=== PATIENT | male | born 1945 | race Caucasian/White ===

== ENCOUNTER 2017-04-04 06:02 | Day surgery (SDC) | payer OTHER ==
[~2017-04-04] VITALS: Ht 175.3 cm; Wt 110.6 kg
[~2017-04-04 06:02] MED LIST: ASPI81TA82 PO; ATEN-102 PO; ATOR80TA41 PO; CPAP; D31000CA PO; LOSA50TA PO; NORV10TA PO; OMEG100010 PO; PROT40TA PO; ZETI10TA5 PO; [UNRECOGNIZED DRUG - CODE] XX
[2017-04-04] MEDS ORDERED: NS 1000P @30 MLS/HR (KVO) IV SCH (06:45)
[2017-04-04 07:18] VITALS: BP 141/72; PULSE 74; RESP 18; TEMP 98.1; O2SAT 99
[2017-04-04] MEDS ORDERED: SODI325T PO (07:27)
[2017-04-04] MEDS ORDERED: AMLO10TA2 PO (07:27)
[2017-04-04] MEDS ORDERED: METO1TAB9 PO (07:27)
[2017-04-04] MEDS ORDERED: OMEGCAP PO (07:27)
[2017-04-04] MEDS ORDERED: LOSA50TA PO (07:27)
[2017-04-04] MEDS ORDERED: TYLE325T PO (07:27)
[2017-04-04] MEDS ORDERED: VITA100064 PO (07:27)
[2017-04-04] MEDS ORDERED: ATOR80TA45 PO (07:27)
[2017-04-04 07:31] LABS: AUTOMATED NEUTROPHIL # 6.7 TH/MM3 (1.8-7.7); BASOPHIL # 0.1 TH/MM3 (0-0.2); BASOPHIL % 0.7 % (0.0-2.0); EOSINOPHIL # 0.2 TH/MM3 (0-0.4); EOSINOPHIL % 1.8 % (0.0-4.0); HEMATOCRIT 29.4 % (39.0-51.0); HEMOGLOBIN 9.6 GM/DL (13.0-17.0); LYMPH % 12.9 % (9.0-44.0); LYMPHOCYTE # 1.2 TH/MM3 (1.0-4.8); MEAN CELL VOLUME 95.2 FL (80.0-100.0); MEAN CORPUSCULAR HGB CONC 32.6 % (32.0-36.0); MEAN PLATELET VOLUME 8.8 FL (7.0-11.0); MONO % 9.2 % (0.0-8.0); MONOCYTE # 0.8 TH/MM3 (0-0.9); NEUT % 75.4 % (16.0-70.0); PLATELET COUNT 255 TH/MM3 (150-450); RED BLOOD COUNT 3.08 MIL/MM3 (4.50-5.90); RED CELL DISTRIBUTION WIDTH 14.6 % (11.6-17.2); WHITE BLOOD COUNT 8.9 TH/MM3 (4.0-11.0)
[2017-04-04 07:55] LABS: ALBUMIN 3.4 GM/DL (3.4-5.0); BICARBONATE 21.2 MEQ/L (21.0-32.0); CALCIUM 9.1 MG/DL (8.5-10.1); CREATININE 3.7 MG/DL (0.60-1.30)
--- NOTE | 2017-04-04 09:13 | PD.FRAIL ---
Date: Apr 04, 2017 Height: 175.26 cm Weight: 110.6 kg BMI: 36.0 Assessment Performed: Outpatient Albumin 04/04/17 07:00: Blood Urea Nitrogen 50, Creatinine 3.70, Random Glucose 108, Albumin 3.4, Calcium Level 9.1, Sodium Level 142, Potassium Level 4.3, Chloride Level 113, Carbon Dioxide Level 21.2 Pass/Fail: Fail Croft Activities Daily Living Croft ADL Score: Bathing(bathes self/help in single area): [place] (1), Dressing(gets/puts clothes on self): [place] (1), Toileting(goes without help): [place] ( 1), Transferring([facility]assisted or [facility] aides): [place] (1), Continence( complete self-control): [place] (1), Feeding(self, prep by another allowed) : [place] (1), Total: 6 Stock Counter Strength Grasp 1: 20 Grasp 2: 20 Grasp 3: 18 Average: 19.3 Pass/Fail: Fail 15-Foot Walk 15-Foot Walk (seconds): 12.4 Pass/Fail: Fail (walks with cane. pt unable to walk distances because of spinal stenosis. not SOB on 15ft walk. ) Total Frailty Total Frailty (out of 4): 3 Frailty Index Score Reference Stock Counter Strength: BMI: <=24 Cutoff for rn pediatric strength(Kg): <=29 BMI: 24.1-28 Cutoff for rn pediatric strength(Kg): <=30 BMI: >28 Cutoff for rn pediatric strength(Kg): <=32 15-Foot Walk: Height: <=173 cm 15-Foot Walk Cutoff Time: >=7 seconds Height: >173 cm 15-Foot Walk Cutoff Time: >=6 seconds Chelsi Jasso RN Apr 04, 2017 09:13
--- NOTE | 2017-04-04 11:40 | PD.CONS ---
HPI Service Nephrology Consult Requested By Dr. Oliveira Reason for Consult Chronic kidney disease stage IV Primary Care Physician Non-Staff History of Present Illness Patient is a 71-year-old the white male with history of chronic kidney disease stage IV GFR of 16, hypertension, coronary artery disease, chest pains who has been admitted to for undergoing heart catheterization he does have a heart murmur as well, I have been asked to evaluate him he is getting IV fluids have prior to his heart catheterization and I have discussed that we should wait to see how the kidney functions are after heart catheterization to make further decision about CT scan with contrast, it is likely that he may need hemodialysis as he has advanced kidney disease and GFR is already trending downward. Review of Systems Constitutional: COMPLAINS OF: Fatigue Respiratory: COMPLAINS OF: Shortness of breath Cardiovascular: COMPLAINS OF: Chest pain, Dyspnea on Exertion, Orthopnea Past Family Social History Allergies: Coded Allergies: No Known Allergies (Unverified , 05/13/13) Past Medical History Coronary artery disease Chronic kidney disease stage IV Obesity Hyperlipidemia Hypertension Past Surgical History Appendectomy Covered dental surgery Reported Medications Reported Meds & Active Scripts Active Reported Vitamin D3 (Cholecalciferol) 1,000 Unit Tab 1,000 Units PO DAILY Tylenol (Acetaminophen) 325 Mg Tab 1,000 Mg PO ONCE Sodium Bicarbonate 325 Mg Tab Unknown Dose PO BIDPC Wallace-3 Fish Oil/Vitamin (Fish Oil-Cholecalciferol) 1,000-1,000 Mg Cap 1 Cap PO DAILY Metoprolol Succinate ER 24 HR (Metoprolol Succinate) 50 Mg Tab 50 Mg PO DAILY Losartan (Losartan Potassium) 50 Mg Tab 50 Mg PO DAILY Atorvastatin (Atorvastatin Calcium) 80 Mg Tab 80 Mg PO HS Amlodipine (Amlodipine Besylate) 10 Mg Tab 10 Mg PO DAILY Active Ordered Medications Current Medications Medications (Trade) Dose Ordered Sig/Marylou Route Start Time Stop Time Status Last Admin Sodium Chloride 1,000 ml @ 30 mls/hr Q24H IV 04/04/17 06:45 Family History Noncontributory Social History History of smoking in the past Physical Exam Vital Signs Vital Signs Date Time Temp Pulse Resp B/P (MAP) Pulse Ox O2 Delivery O2 Flow Rate FiO2 04/04/17 07:18 98.1 74 18 141/72 (95) 99 Physical Exam GENERAL: Well-nourished, well-developed patient. SKIN: Warm and dry. HEAD: Normocephalic. EYES: No scleral icterus. No injection or drainage. NECK: Supple, trachea midline. No JVD or lymphadenopathy. CARDIOVASCULAR: Regular rate and rhythm 3/6 systolic murmur, gallops, or rubs. RESPIRATORY: Breath sounds equal bilaterally. No accessory muscle use. GASTROINTESTINAL: Abdomen soft, non-tender, nondistended. EXTREMITIES: No cyanosis, or edema. NEUROLOGICAL: Awake, alert, and oriented x 3. Non-focal. Laboratory Laboratory Tests Test 04/04/17 07:00 White Blood Count 8.9 Red Blood Count 3.08 Hemoglobin 9.6 Hematocrit 29.4 Mean Corpuscular Volume 95.2 Mean Corpuscular Hemoglobin 31.0 Mean Corpuscular Hemoglobin Concent 32.6 Red Cell Distribution Width 14.6 Platelet Count 255 Mean Platelet Volume 8.8 Neutrophils (%) (Auto) 75.4 Lymphocytes (%) (Auto) 12.9 Monocytes (%) (Auto) 9.2 Eosinophils (%) (Auto) 1.8 Basophils (%) (Auto) 0.7 Neutrophils # (Auto) 6.7 Lymphocytes # (Auto) 1.2 Monocytes # (Auto) 0.8 Eosinophils # (Auto) 0.2 Basophils # (Auto) 0.1 CBC Comment DIFF FINAL Differential Comment Prothrombin Time 10.0 Prothromb Time International Ratio 1.0 Activated Partial Thromboplast Time 21.9 Blood Urea Nitrogen 50 Creatinine 3.70 Random Glucose 108 Albumin 3.4 Calcium Level 9.1 Sodium Level 142 Potassium Level 4.3 Chloride Level 113 Carbon Dioxide Level 21.2 Anion Gap 8 Estimat Glomerular Filtration Rate 16 Result Diagram: 04/04/17 0700 04/04/17 0700 Assessment and Plan Problem List: (1) CKD (chronic kidney disease) stage 4, GFR 15-29 ml/min ICD Codes: N18.4 - Chronic kidney disease, stage 4 (severe) Plan: Patient is a high risk for heart catheterization with dye, I discuss that there is likelihood of dialysis if kidney functions continued to deteriorate after heart catheterization, he is getting IV fluid and will wait to see how much dye load he gets CT scan can be stage and we have to wait to see how he tolerates heart catheterization We discussed that preemptive dialysis has not shown to improve his chances in the literature The best approach will be to wait and follow kidney functions there is a possibility that we may have to do dialysis since his GFR is low to begin with Monitor BMP (2) Hypertension ICD Codes: I10 - Essential (primary) hypertension Plan: Continue to monitor (3) Coronary artery disease ICD Codes: I25.10 - Atherosclerotic heart disease of [place] coronary artery without angina pectoris Status: Chronic Plan: Wait for heart catheterization Problem Qualifiers (1) Hypertension: Qualified Codes: I10 - Essential (primary) hypertension Gaurav Shah MD Apr 04, 2017 11:40
--- NOTE | 2017-04-04 12:04 | RADRPT ---
EXAM DATE/TIME: 04/04/2017 11:01 [facility] COMPARISON: No previous studies available for comparison. INDICATIONS : Pre TAVR MEDICAL HISTORY : Hypertension. Hypercholesterolemia. CAD SURGICAL HISTORY : None. ENCOUNTER: Initial ACUITY: 1 day PAIN SCORE: 0/10 LOCATION: chest FINDINGS: A single view of the chest demonstrates the lungs to be symmetrically aerated without evidence of mas s, infiltrate or effusion. The cardiomediastinal contours are unremarkable. Osseous structures are intact. CONCLUSION: No acute disease. Chuck Rae MD on April 04, 2017 at 12:02 Board Certified Radiologist. This report was verified electronically.
[2017-04-04 14:21] LABS: BILIRUBIN, URINE NEG (NEG); BLOOD, URINE NEG (NEG); GLUCOSE,URINE TRACE mg/dL (NEG); HYALINE CAST, URINE 1 /lpf (RARE); KETONE, URINE NEG (NEG); NITRITE,URINE NEG (NEG); PH, URINE 6.5 (5.0-8.5); URINE COLOR LIGHT-YELLOW (YELLW/STRAW); URINE LEUKOCYTE ESTERASE NEG (NEG)
[2017-04-04 14:51] LABS: ALBUMIN 3.5 GM/DL (3.4-5.0); ALT (GPT) 25 U/L (12-78); AST (GOT) 18 U/L (15-37); DIRECT BILIRUBIN ADULT 0.1 MG/DL (0.0-0.2)
[2017-04-04 14:52] LABS: ALKALINE PHOSPHATASE 74 U/L (45-117); INDIRECT BILIRUBIN 0.1 MG/DL (0.0-0.8); TOTAL BILIRUBIN ADULT 0.2 MG/DL (0.2-1.0); TOTAL PROTEIN 6.4 GM/DL (6.4-8.2)
--- NOTE | 2017-04-04 14:57 | MB ---
cc: SAUL HAN MD DATE OF CONSULTATION 04/04/2017 HISTORY OF PRESENT ILLNESS A 71-year-old patient of Dr. Faria, Dr. Tidwell, Dr. Scott, who was admitted for elective heart catheterization today; however, that was cancelled secondary to a creatinine of 3.7 and a GFR of 16. He apparently had been worked up to have carpal tunnel surgery on the left and needed cardiac clearance. He has seen Dr. Tidwell in the past and had a work-up to include echocardiogram which showed an ejection fraction of 70%, grade 1 diastolic dysfunction, aortic valve area 0.7 cm squared, mild to moderate AI, peak gradient 93 mmHg, mean gradient 51, consistent with severe aortic stenosis. There was also some mild mitral regurgitation, possible mild mitral stenosis. The tricuspid valve was normal. There was no stress test done. There was concern to give him any dye. He had an admission back in 2013 where he had extreme shortness of breath, dyspnea on exertion and was admitted with a hemoglobin of 4. He underwent work-up with an EGD which showed some gastritis. A colonoscopy showed some hemorrhoids. He was transfused with 6 units of blood during that time unfortunately he apparently had a [id number] VT. Troponin was 5.19. He was treated medically by Dr. Tidwell. There was concern secondary to the severe anemia. He was restarted on aspirin and beta jacy and a statin. He presented today for evaluation with cardiac cath, however, that was stopped. He does have multiple risk factors for coronary disease including age, obesity, BMI of 39, family history, hypertension, hyperlipidemia and tobacco abuse. We were consulted to preliminary evaluate for possible TAVR candidate; however, we are unable to do STS scoring since we do not have a cardiac cath and we await further work-up pending including the cath. PAST MEDICAL HISTORY 1. Abnormal EKG. 2. Prior non-STEMI secondary to severe anemia in 2013. 3. Aortic insufficiency. 4. Aortic stenosis with worsening valve area. 5. Carpal tunnel of the left wrist. 6. Chronic kidney disease, stage IV. 7. COPD. 8. Hyperlipidemia. 9. Hypertension. 10.Mild mitral regurgitation. 11.Morbid obesity. 12.Obstructive sleep apnea. 13.Spinal stenosis, nonsurgical. PAST SURGICAL HISTORY 1. Appendectomy. 2. Right carpal tunnel surgery. ALLERGIES No known allergies. MEDICATIONS Home meds include: 1. Amlodipine. 2. Atorvastatin. 3. Losartan. 4. Metoprolol. 5. Tylenol. FAMILY HISTORY Father at 59 from an VT. Mother with failure to thrive at 81. SOCIAL HISTORY The patient is , has two biological children. Retired from the [employer]. Has been smoking one pack for 30 years. Drinks two glasses of wine or whiskey daily. REVIEW OF SYSTEMS GENERAL: No night sweats, fever, heat or cold intolerance. SKIN: No psoriasis, itching or hives. HEENT: No blurred vision or hearing loss. He does have dentures, uppers and lowers. RESPIRATORY: Positive for chronic shortness of breath with minimal exertion. CARDIOVASCULAR: He has had recent chest pressure for the last couple of months relieved with rest. No history of syncope. GASTROINTESTINAL: No diarrhea or vomiting. GENITOURINARY: No burning, frequency, urgency. PUBLIC RELATIONS INTERN: No history of TIA, CVA, seizure disorder. ENDOCRINE: No history of diabetes and/or hypothyroidism. PHYSICAL EXAMINATION VITAL SIGNS: Blood pressure 140/60, heart rate 70, afebrile. O2 sat 97% on room air. GENERAL: Patient is awake, alert, in no acute distress. HEENT: Head is normocephalic, atraumatic. Pupils equal and reactive. Oral mucosa pink and moist. NECK: Supple. No JVD. HEART: Heart sounds S1, S2, regular rate and rhythm. There is a grade 3/6 systolic murmur best noted at the left sternal border. LUNGS: Diminished in the bases, otherwise clear to auscultation. ABDOMEN: Obese, soft, nontender. No masses or organomegaly. EXTREMITIES: No cyanosis, clubbing or edema. SKIN: No psoriasis or lesions noted. LABORATORY Hematology: Hemoglobin 9.6, hematocrit 29, white cell count 8.9, platelet count 255. Chemistry: Sodium 142, potassium 4.3, BUN 50, creatinine 3.70. Coagulation: INR 1.0. IMAGING Chest x-ray unremarkable. EKG EKG shows normal sinus rhythm, some ST depression inferior lateral leads, relatively unchanged. IMPRESSION AND PLAN This is a 71-year-old male we have been asked to evaluate for candidacy of possible transcatheter aortic valve replacement. The patient's frailty score is 3/4. We are unable to complete an STS due to the fact that he has not had his heart catheterization at this time. Await clearance with nephrology. Since the patient has stage IV kidney disease there is a possibility he may need hemodialysis following the heart catheterization. His FEV-1 is 1.91. He has multiple risk factors for coronary disease as discussed above in the HPI. He has severe aortic stenosis and will need to have that valve replaced or by transcatheter aortic valve replacement. He has multiple co-morbidities. He has poor mobility, but again we are unable to make a final decision until he undergoes his cardiac cath. Dictated by: KYARA Bui Saul CHAMBERS /1:33 PM /2:43 PM
--- NOTE | 2017-04-04 15:13 | RADRPT ---
EXAM DATE/TIME: 04/04/2017 14:21 [facility] COMPARISON: No previous studies available for comparison. INDICATIONS : Pre-Op cardiac surgery. MEDICAL HISTORY : Myocardial infarction. Chronic obstructive pulmonary disease. Hypercholesterolemia. Coronary artery d isease. Heart murmur. HTN. COPD. Sleep apnea. Dyspnea. Stage IV chronic kidney disease. Osteoarthriti s. Spinal stenosis. Skin cancer. Anemia. SURGICAL HISTORY : Tonsillectomy. Appendectomy. Warthin's tumor removed. right carpel tunnel release. blood tranfusion s. cardiac cath. ENCOUNTER: Initial ACUITY: 1 day PAIN SCORE: 0/10 LOCATION: Bilateral neck PEAK SYSTOLIC VELOCITIES (cm/sec): ICA/CCA RATIO: Right: 1.0 Left: 0.9 ICA: Right: 92 Left: 98 CCA: Right: 89 Left: 114 ECA: Right: 116 Left: 78 VERTEBRAL: Right: 42 antegrade Left: 40 antegrade Elevated flow velocities and ICA/CCA ratios have been found to correlate with increased degrees of vessel stenosis, calculated as percentage of diameter relative to a normal segment of distal ICA/CCA FINDINGS: RIGHT CAROTID: No significant stenosis is visualized. There is mild atherosclerotic plaquing of the bifurcation. Th e waveforms are within normal limits. LEFT CAROTID: No significant stenosis is visualized. There is mild atherosclerotic plaquing of the bifurcation. Th e waveforms are within normal limits. VERTEBRAL ARTERIES: Antegrade flow is seen in both vertebral arteries. MISCELLANEOUS: None. CONCLUSION: 1. Mild atherosclerotic plaquing of the bifurcations. This is predominantly calcified plaque. 2. No hemodynamically significant carotid artery stenosis identified. Haris Hope MD on April 04, 2017 at 15:10 Board Certified Radiologist. This report was verified electronically.
--- NOTE | 2017-04-04 15:45 | RADRPT ---
EXAM DATE/TIME: 04/04/2017 14:00 [facility] COMPARISON: No previous studies available for comparison. INDICATIONS : pre-op TAVR IV CONTRAST: none cc IV RADIATION DOSE: 9.97 CTDIvol (mGy) MEDICAL HISTORY : Chronic obstructive pulmonary disease. Hypertension. Renal failure, chronic.coronary artery disease SURGICAL HISTORY : Appendectomy. CABGTonsillectomy. ENCOUNTER: Initial ACUITY: 1 day PAIN SCALE: 0/10 LOCATION: chest TECHNIQUE: Volumetric scanning was performed using a multi-row detector CT scanner. The data was post processed with a variety of visualization algorithms including full volume maximum intensity projection, multi -planar sliding thin slab reformation, curved planar reformation, and surface rendering techniques. Using automated exposure control and adjustment of the mA and/or kV according to patient size, radiat ion dose was kept as low as reasonably achievable to obtain optimal diagnostic quality images. DIC OM format image data is available electronically for review and comparison. FINDINGS: CARDIAC: The coronary system is right dominant. There is calcification of the left anterior distending artery, posterior descending artery and proximal third of the right coronary. There is no pericardial effusi on AORTIC ROOT/VALVE: 3 cusps are evident with calcifications. The aortic root measures 3.7. Mid thoracic aorta measures 2.0 with no calcifications. THORACIC AORTA: Origin of the great vessels is normal. No evidence of aneurysm, mural thrombus, dissection, mural ca lcification, or stenosis. ABDOMINAL AORTA: No evidence of aneurysm, mural thrombus, dissection, mural calcification, or stenosis. CELIAC ARTERY: Celiac artery is widely patent. SMA: Superior mesenteric artery is widely patent. RIGHT RENAL ARTERY: Right renal artery is widely patent. LEFT RENAL ARTERY: Left renal artery is widely patent. RIGHT COMMON ILIAC: No evidence of aneurysm, mural thrombus, dissection, mural calcification, or stenosis. The common fe moral measures 12. LEFT COMMON ILIAC: No evidence of aneurysm, mural thrombus, dissection, mural calcification, or stenosis. The common fe moral measures 12. THORAX: Examination of the lung kinney demonstrates no evidence of pulmonary nodule. No pleural fluid is iden tified. ABDOMEN: The liver and spleen are free of focal defects. The gallbladder and pancreas demonstrate no abnormali ty. The adrenal glands are normal. The kidneys demonstrate no evidence of solid renal mass or hydrone phrosis. No free fluid or abdominal masses are identified. No para-aortic adenopathy is seen. There i s cortical thinning of the kidneys bilaterally PELVIS: There is diverticulosis without evidence of diverticulitis. CONCLUSION: 1. Measurements as above. 2. No evidence of acute abdominal or pelvic process. No masses are identified. Herrera Kwong MD on April 04, 2017 at 14:55 Board Certified Radiologist. This report was verified electronically.
--- NOTE | 2017-04-04 15:48 | RADRPT ---
EXAM DATE/TIME: 04/04/2017 14:34 [facility] COMPARISON: No previous studies available for comparison. INDICATIONS : Preop cardiac surgery. MEDICAL HISTORY : Myocardial infarction. Congestive heart failure. Hypercholesterolemia. Coronary artery disease. Heart murmur. HTN. COPD. Sleep apnea. Dyspnea. Stage IV chronic kidney disease. Osteoarthritis. Spinal jannette nosis. Skin cancer. Anemia. SURGICAL HISTORY : Tonsillectomy.Appendectomy. Terrell's tumor removal. right carpel tunnel surgery. blood transfusions. cardiac cath. ENCOUNTER: Initial ACUITY: 1 day PAIN SCORE: 0/10 LOCATION: Bilateral leg. TECHNIQUE: Venous ultrasound of the left and right leg was performed from the inguinal ligament to the proximal calf. Real-time, color Doppler and spectral tracing, compression and augmentation techniques were us ed. FINDINGS: RIGHT LEG: There is normal compressibility of the deep venous system from the inguinal region to the proximal ca lf. No echogenic clot is seen in the lumen of the common femoral, femoral, popliteal, and posterior tibial veins. There is a normal response of the venous system to proximal and distal augmentation an d respiration. LEFT LEG: Poor flow in the left posterior tibial vein and the vein is compressible. No other evidence for thro mbosis is identified. . CONCLUSION: Negative for deep venous thrombosis. Julio César Hope MD FACR on April 04, 2017 at 15:44 Board Certified Radiologist. This report was verified electronically.
--- NOTE | 2017-04-04 15:53 | RADRPT ---
EXAM DATE/TIME: 04/04/2017 14:39 [facility] COMPARISON: US LEG BILATERAL VENOUS DOPPLER, April 04, 2017, 14:34. INDICATIONS : Preop cardiac surgery. MEDICAL HISTORY : Congestive heart failure. Myocardial infarction. Hypercholesterolemia. Coronary artery disease. Heart murmur. HTN. COPD. Sleep apnea. Dyspnea. Stage IV chronic kidney disease. Osteoarthritis. Spinal jannette nosis. Skin cancer. Anemia. SURGICAL HISTORY : Tonsillectomy. Appendectomy. Christine's tumor removal. right carpel tunnel surgery. blood transfusion s. cardiac cath. ENCOUNTER: Initial ACUITY: 1 day PAIN SCORE: 0/10 LOCATION: Bilateral leg. GREATER SAPHENOUS VEIN THIGH: PROXIMAL: Right 7 mm Left 6 mm MID: Right 3 mm Left 4 mm DISTAL: Right 4 mm Left 3 mm CALF: PROXIMAL: Right 3 mm Left 2 mm MID: Right 2 mm Left 1 mm DISTAL: Right 3 mm Left 2 mm FINDINGS: The venous system of the lower extremities are patent by color Doppler imaging. Measurements of the leg veins (in mm) are listed above. CONCLUSION: 1. No DVT identified. 2. Vein mapping as above. Haris Hope MD on April 04, 2017 at 15:47 Board Certified Radiologist. This report was verified electronically.
[2017-04-04 17:57] LABS: HEMOGLOBIN A1C 5.2 % (4.3-6.0)
--- NOTE | 2017-04-04 21:36 | EKG ---
Date Performed: 04/04/2017 Time Performed: 07:30:10 PTAGE: 71 years EKG: Sinus rhythm . Inferior/lateral ST-T changes are nonspecific Borderline ECG PREVIOUS TRACING : 05/14/2013 17.19 Compared to prior tracing no significant change DOCTOR: Siva Salinas Interpretating Date/Time 04/04/2017 21:35:07
--- NOTE | 2017-04-10 12:12 | RSPPFT ---
DATE OF PROCEDURE: 04/04/17 COMMENTS: Spirometry with FVC of 2.6 predicted 3.8, FEV1 of 1.9 predicted 3.0, FEV1/FVC ratio at 73% predicted 78%. Patient has decreased flow values at the level of the "small airways" with FEF 25-75 at 1.3 predicted 2.9. IMPRESSION: On the basis of the above, patient has a mild obstructive lung defect.
== END 2017-04-04 15:03 | disposition home or self-care (01) ==
LOC: HDOC 06:02 → HDIC 06:03 → HDOC 15:03
PROVIDERS: ATTEND Radiology Vascular & Interventional Radiology
DX: I35.0 Nonrheumatic aortic (valve) stenosis (principal); I34.0 Nonrheumatic mitral (valve) insufficiency; I13.0 Hypertensive heart and chronic kidney disease with heart failure and stage 1 through stage 4 chronic kidney disease, or unspecified chronic kidney disease; N18.4 Chronic kidney disease, stage 4 (severe); D63.1 Anemia in chronic kidney disease; I50.9 Heart failure, unspecified; G56.02 Carpal tunnel syndrome, left upper limb; E78.00 Pure hypercholesterolemia, unspecified; I25.10 Atherosclerotic heart disease of native coronary artery without angina pectoris; J44.9 Chronic obstructive pulmonary disease, unspecified; I25.2 Old myocardial infarction; G47.33 Obstructive sleep apnea (adult) (pediatric); R01.1 Cardiac murmur, unspecified; E78.5 Hyperlipidemia, unspecified; E66.01 Morbid (severe) obesity due to excess calories; Z68.36 Body mass index [BMI] 36.0-36.9, adult; M19.90 Unspecified osteoarthritis, unspecified site; R07.9 Chest pain, unspecified; R06.02 Shortness of breath; R53.83 Other fatigue; R07.89 Other chest pain; R06.01 Orthopnea; Z87.891 Personal history of nicotine dependence
CPT/HCPCS: 71045; 74174; 80048; 80076; 81001; 82040; 83036; 85025; 85610; 85730; 86850; 86900; 86901; 87641; 93005; 93880; 93970; 93998

== ENCOUNTER 2017-09-03 21:44 | Inpatient (IN) | payer OTHER, MEDICARE ==
[~2017-09-03] VITALS: Ht 172.7 cm; Wt 99.0 kg
[~2017-09-03 21:44] MED LIST changes: +AMLO10TA2 PO; -ASPI81TA82 PO; -ATEN-102 PO; -ATOR80TA41 PO; +ATOR80TA45 PO; -CPAP; -D31000CA PO; +METO1TAB9 PO; -NORV10TA PO; -OMEG100010 PO; +OMEGCAP PO; -PROT40TA PO; +SODI325T PO; +TYLE325T PO; +VITA100064 PO; -ZETI10TA5 PO; -[UNRECOGNIZED DRUG - CODE] XX
[2017-09-03 21:48] VITALS: BP 118/62; PULSE 100; RESP 22; TEMP 98.1; O2SAT 96
[2017-09-03] MEDS ORDERED: PROC20005 SQ (21:59)
[2017-09-03] MEDS ORDERED: SODIUM CHLORID 0.9% 500 ML INJ 500 ML IV ONE (22:00)
[2017-09-03] MEDS ORDERED: SODIUM CHLOR 0.9% 1000 ML INJ 1,000 ML IV SCH (22:00)
[2017-09-03] MEDS ORDERED: PANTOPRAZOLE SODIUM 40 MG VIAL IV PUSH ONE (22:00)
[2017-09-03] MEDS ORDERED: ASPIRIN 81 MG CHEW TAB PO ONE (22:00)
[2017-09-03] MEDS ORDERED: SODIUM CHLORIDE 0.9% FLUSH 10 ML FLUSH IVF PRN ×2 (22:00→22:30)
--- NOTE | 2017-09-03 22:18 | PD ---
HPI Chief Complaint: Chest Pain Time Seen by Provider: 21:55 Travel History International Travel<30 days: No Contact w/Intl Traveler<30days: No Traveled to known affect area: No History of Present Illness HPI 72 year male presents to the emergency department from home by EMS transport for evaluation of retrosternal chest pain. No reported associated shortness of breath sweats nausea vomiting referred neck jaw back shoulder arm pain. Patient denies any abdominal pain. Patient has history of known coronary vessel disease myocardial infarction, angina pectoris as well as stage IV chronic kidney disease. Patient also has history of aortic insufficiency aortic stenosis COPD dyslipidemia hypertensive heart disease mitral regurgitation morbid obesity obstructive sleep apnea. Patient states he frequently has episodes of similar type of chest pain that is minutes indurations however this is been present since 8:30 PM and unremitting. Patient was noted to be hypotensive upon EMS arrival with a systolic blood pressure of 90 mmHg. Patient was given aspirin and a 500 cc bolus of normal saline. Patient also suffers from chronic anemia due to his CKD. Patient was seen as recently as March 2017 for a cardiac catheterization which was canceled secondary to his creatinine being 2.7 at the time with a GFR of 16 it was determined that the contrast would cause him to have further renal failure deterioration and require hemodialysis. Patient was also seen by cardiothoracic surgery and indicated that to evaluate him for a transcatheter aortic valve replacement he would need to undergo cardiac catheterization however as it was an elective catheterization of the time the study was canceled. Patient has had low hemoglobin in the past requiring blood transfusion. Patient does not take any iron supplements. Patient is currently on no blood thinning agents. Patient has not noticed any epistaxis, bleeding hemoptysis hematemesis coffee-ground emesis melena or hematochezia. Patient denies increased bruising. Patient failed Epogen therapy. Patient is able to identify exacerbating or alleviating factors. Patient also reports that he was recently started on Lasix as a new medication within the past 3 weeks. Patient has not noticed any lower extremity swelling. Patient has not noticed any new dyspnea on exertion or orthopnea. PFSH Past Medical History Narrative Medical Abnormal EKG non-STEMI secondary to severe anemia in 2013 aortic insufficiency or stenosis with worsening valve area carpal tunnel left wrist chronic kidney disease stage IV COPD dyslipidemia hypertension mitral valve regurgitation morbid obesity obstructive sleep apnea spinal stenosis appendectomy and right carpal tunnel repair Autoimmune Disease: No Heart Rhythm Problems: Yes (MURMUR SINCE CHILDHOOD) Cancer: Yes (SKIN) Cardiovascular Problems: Yes (CAD, ) High Cholesterol: Yes Chest Pain: No Congestive Heart Failure: Yes (bnp 581 in er 05/13/13) COPD: Yes Diabetes: No Diminished Hearing: Yes (GLASSES/CONTACT LENSES) Endocrine: No Gastrointestinal Disorders: No Glaucoma: No Genitourinary: Yes Hepatitis: No Hiatal Hernia: No Hypertension: Yes Immune Disorder: No Musculoskeletal: Yes Neurologic: No Psychiatric: No Reproductive: No Respiratory: Yes (COPD, SLEEP APNEA) Integumentary: No Immunizations Current: Yes Myocardial Infarction: Yes (SILENT MN FOUND IN 2008) Renal Failure: Yes (STAGE IV) Sleep Apnea: Yes (cpap at hs) Thyroid Disease: No Past Surgical History Abdominal Surgery: Yes (appendectomy) Appendectomy: Yes Cardiac Surgery: No Pacemaker: No Tonsillectomy: Yes (CHILDHOOD) Other Surgery: Yes Social History Alcohol Use: Yes (COUPLE DRINKS PER DAY) Tobacco Use: Yes (1 PPD) Substance Use: No Allergies-Medications (Allergen,Severity, Reaction): Coded Allergies: No Known Allergies (Verified Adverse Reaction, Unknown, 09/03/17) Reported Meds & Prescriptions Reported Meds & Active Scripts Active Reported Furosemide 40 Mg Tab 40 Mg PO DAILY Vitamin D3 (Cholecalciferol) 1,000 Unit Tab 1,000 Units PO DAILY Sodium Bicarbonate 325 Mg Tab Unknown Dose PO BIDPC Metoprolol Succinate ER 24 HR (Metoprolol Succinate) 50 Mg Tab 50 Mg PO DAILY Losartan (Losartan Potassium) 50 Mg Tab 50 Mg PO DAILY Atorvastatin (Atorvastatin Calcium) 80 Mg Tab 80 Mg PO HS Amlodipine (Amlodipine Besylate) 10 Mg Tab 10 Mg PO DAILY Review of Systems Except as stated in HPI: all other systems reviewed are Neg General / Constitutional: No: Fever, Chills HENT: No: Congestion Cardiovascular: Positive: Chest Pain or Discomfort, No: Palpitations, Diaphoresis Respiratory: No: Shortness of Breath Gastrointestinal: Positive: Nausea, No: Vomiting, Abdominal Pain Genitourinary: No: Flank Pain Musculoskeletal: No: Myalgias, Arthralgias, Edema Skin: No Rash Neurologic: Positive: Weakness, No: Dizziness, Syncope, Focal Abnormalities, Coordination Problem Psychiatric: No: Anxiety Endocrine: No: Heat Intolerance Hematologic/Lymphatic: No: Easy Bruising Physical Exam Narrative GENERAL: Well-developed well-nourished male in no acute distress no respiratory distress GCS 15 SKIN: Warm and dry. HEAD: Normocephalic. EYES: No scleral icterus. No injection or drainage. NECK: Supple, trachea midline. No JVD or lymphadenopathy. CARDIOVASCULAR: Regular rate and rhythm without murmurs, gallops, or rubs. RESPIRATORY: Breath sounds equal bilaterally. No accessory muscle use. GASTROINTESTINAL: Abdomen soft, non-tender, nondistended. MUSCULOSKELETAL: No cyanosis, or edema. BACK: Nontender without obvious deformity. No CVA tenderness. Data Data Last Documented VS Vital Signs Date Time Temp Pulse Resp B/P (MAP) Pulse Ox O2 Delivery O2 Flow Rate FiO2 09/03/17 23:01 79 22 108/55 (72) 100 Nasal Cannula 2.00 09/03/17 21:48 98.1 Orders Orders Electrocardiogram (09/03/17 21:55) Basic Metabolic Panel (Bmp) (09/03/17 21:55) Ckmb (Isoenzyme) Profile (09/03/17 21:55) Complete Blood Count With Diff (09/03/17 21:55) Magnesium (Mg) (09/03/17 21:55) Prothrombin Time / Inr (Pt) (09/03/17 21:55) Act Partial Throm Time (Ptt) (09/03/17 21:55) Troponin I (09/03/17 21:55) Ecg Monitoring (09/03/17 21:55) Bilateral Bp Monitoring (09/03/17 21:55) Iv Access Insert/Monitor (09/03/17 21:55) Oximetry (09/03/17 21:55) Oxygen Administration (09/03/17 21:55) Sodium Chloride 0.9% Flush (Ns Flush) (09/03/17 22:00) Sodium Chlorid 0.9% 500 Ml Inj (Ns 500 M (09/03/17 22:00) Sodium Chlor 0.9% 1000 Ml Inj (Ns 1000 M (09/03/17 22:00) Type And Screen (09/03/17 21:55) Pantoprazole Inj (Protonix Inj) (09/03/17 22:00) Chest, Single Ap (09/03/17 ) Iv Access Insert/Monitor (09/03/17 22:19) Sodium Chloride 0.9% Flush (Ns Flush) (09/03/17 22:30) Sodium Chloride 0.9... W/Pantoprazole In (09/03/17 22:19) Sodium Chloride 0.9... W/Pantoprazole In (09/03/17 22:19) Heparin Inj (Heparin Inj) (09/03/17 22:30) Heparin Inj (Heparin Inj) (09/04/17 04:30) Heparin Inj (Heparin Inj) (09/04/17 04:30) Heparin-D5w 25,000 U/250 Ml (Heparin-D5w (09/03/17 22:30) Metoprolol Tartrate Inj (Lopressor Inj) (09/03/17 22:30) Blood Product Administration (09/03/17 22:39) Sodium Chlor 0.9% 250 Ml Inj (Ns 250 Ml (09/03/17 22:45) Morphine Inj (Morphine Inj) (09/03/17 22:45) Metoclopramide Inj (Reglan Inj) (09/03/17 22:45) Red Blood Cells (Rbc) (09/03/17 22:10) CKMB (09/03/17 22:10) CKMB% (09/03/17 22:10) Admit Order (Ed Use Only) (09/03/17 ) Intelligence Agent / Telemetry [email or web address] (09/03/17 23:20) Diet Npo (09/04/17 Breakfast) Activity Bed Rest (09/03/17 23:20) Notify Dr: Other (09/03/17 23:20) Labs Laboratory Tests Test 09/03/17 22:10 White Blood Count 11.8 TH/MM3 Red Blood Count 2.14 MIL/MM3 Hemoglobin 5.5 GM/DL Hematocrit 17.6 % Mean Corpuscular Volume 82.1 FL Mean Corpuscular Hemoglobin 25.6 PG Mean Corpuscular Hemoglobin Concent 31.1 % Red Cell Distribution Width 22.3 % Platelet Count 258 TH/MM3 Mean Platelet Volume 8.8 FL Neutrophils (%) (Auto) 80.9 % Lymphocytes (%) (Auto) 11.1 % Monocytes (%) (Auto) 6.7 % Eosinophils (%) (Auto) 0.7 % Basophils (%) (Auto) 0.6 % Neutrophils # (Auto) 9.5 TH/MM3 Lymphocytes # (Auto) 1.3 TH/MM3 Monocytes # (Auto) 0.8 TH/MM3 Eosinophils # (Auto) 0.1 TH/MM3 Basophils # (Auto) 0.1 TH/MM3 CBC Comment DIFF FINAL Differential Comment Prothrombin Time 10.0 SEC Prothromb Time International Ratio 1.0 RATIO Activated Partial Thromboplast Time 18.4 SEC Blood Urea Nitrogen 76 MG/DL Creatinine 5.21 MG/DL Random Glucose 177 MG/DL Calcium Level 8.6 MG/DL Magnesium Level 3.1 MG/DL Sodium Level 139 MEQ/L Potassium Level 4.1 MEQ/L Chloride Level 105 MEQ/L Carbon Dioxide Level 18.8 MEQ/L Anion Gap 15 MEQ/L Estimat Glomerular Filtration Rate 11 ML/MIN Total Creatine Kinase 169 U/L Creatine Kinase MB 5.4 NG/ML Troponin I 0.99 NG/ML MDM Medical Decision Making Medical Screen Exam Complete: Yes Emergency Medical Condition: Yes Medical Record Reviewed: Yes Interpretation(s) EKG atrial fibrillation rate 98 Marked ischemic changes with ST segment depression throughout prominent Q waves noted in V2 Troponin I: Elevated 0.99 Last Impressions Chest X-Ray 09/03/17 0000 Signed Impressions: CONCLUSION: Negative examination. CBC & BMP Diagram 09/03/17 22:10 Calcium Level 8.6, Magnesium Level 3.1 H Vital Signs Date Time Temp Pulse Resp B/P (MAP) Pulse Ox O2 Delivery O2 Flow Rate FiO2 09/03/17 23:01 79 22 108/55 (72) 100 Nasal Cannula 2.00 09/03/17 22:34 92 99/55 (70) 103/54 (70) 09/03/17 22:11 100 Nasal Cannula 2.00 09/03/17 21:48 98.1 100 22 118/62 (80) 96 Differential Diagnosis Chest pain, ACS, myocardial infarction, CHF, worsening aortic stenosis, anemia, GI bleed, worsening chronic kidney disease Narrative Course Patient placed on assembler installer structures with continuous pulse oximetry initial blood pressure systolic pressure 118 mmHg; bolus 500 cc normal saline here in the emergency department held and maintenance fluids at KVO held at this time; on repeat blood pressure decreased to 99/[address] segment depression concerning for subendocardial injury. Rectal exam performed and black stool that is briskly Hemoccult positive. Type and screen ordered stat chest x-ray ordered stat specimens collected and sent for resulting patient's pain is now 5/10 intensity. Patient complains of shortness of breath with some mild orthopnea. Patient given 2 mg of morphine for complaint of current pain at 1 mg aliquots. Patient administer Reglan 10 mg IV for complaint of nausea and Protonix bolus with infusion added. Case discussed in detail with Dr. Damian who recommends patient be administered morphine which patient is artery had ordered he also wants to give the patient a one-time dose of metoprolol 2.5 mg IV slow as well as start the patient on heparin with bolus; he is aware patient has a Hemoccult positive stool and reports patient will require transfusion if he starts having bleeding. He states patient is not a candidate for cardiac catheterization at this time of night in view of his severe aortic stenosis and kidney function but will be admitted to the ICU with consult to his service/group in the a.m. with interventions as discussed. Lab has reported the patient's hemoglobin is 5.43 units of packed cells have been ordered for this patient. Patient's last available creatinine is 3.7, . @ 23:22 prbc's ready; trop: 0.99; patient with non-STEMI with anemia induced ischemia and injury stat transfusion ordered Patient with acutely worsening renal function GFR 11; Bicarb 18.8 @ 23:57 manager of it at the bedside; patient has already started the infusion of his transfusion first unit of packed cells. Critical Care Narrative Aggregate critical care time was 35 minutes. Time to perform other separately billable procedures was not included in the critical care time. My time did not include minutes spent treating any other patients simultaneously or on activities that did not directly contribute to the patient's treatment. The services I provided to this patient were to treat and/or prevent clinically significant deterioration that could result in: Myocardial infarction, cardiogenic shock, hemorrhagic shock, I provided critical care services requiring my management, as noted below: Chart data review, documentation time, medication orders and management, vital sign assessments/reviewing monitor data, ordering and reviewing lab tests, ordering and interpreting/reviewing x-rays and diagnostic studies, care of the patient and discussion of the patient with the admitting physicians. Physician Communication Physician Communication discussed with Dr Damian for Dr Tidwell-- discussed with Dr Damian agrees with MS maria guadalupe nitroglycerin recommends low dose IV metoprolol 2.5 mg iv and start on heparin --aware heme positive stool, no cath, aware H/H pending and trop pending; call placed to manager of it discussed with Dr Bear Diagnosis Primary Impression: Non-ST elevation MN (NSTEMI) Additional Impressions: Atrial fibrillation Anemia GI bleed CKD (chronic kidney disease) stage 4, GFR 15-29 ml/min Admitting Information Admitting Physician Requests: Admit Taty Pond MD Sep 03, 2017 22:18
[2017-09-03] MEDS ORDERED: PANTOPRAZOLE INJ 80 MG in SODIUM CHLORIDE 0.9% INJ 35 ML IV ONE (22:19)
[2017-09-03] MEDS ORDERED: HEPARIN SODIUM - IV 10,000 UNITS/10 ML VIAL IV PUSH ONE (22:30)
[2017-09-03] MEDS ORDERED: METOPROLOL TARTRATE 5 MG/5 ML VIAL IV PUSH ONE (22:30)
[2017-09-03] MEDS ORDERED: HEPARIN-D5W 25,000 U/250 ML 250 ML IV PRN (22:30)
[2017-09-03 22:34] VITALS: BP_SYST 103; BP_SYST 99; BP_DIAS 54; BP_DIAS 55; PULSE 92
[2017-09-03 22:34] LABS: AUTOMATED NEUTROPHIL # 9.5 TH/MM3 (1.8-7.7); BASOPHIL # 0.1 TH/MM3 (0-0.2); BASOPHIL % 0.6 % (0.0-2.0); EOSINOPHIL # 0.1 TH/MM3 (0-0.4); EOSINOPHIL % 0.7 % (0.0-4.0); LYMPH % 11.1 % (9.0-44.0); LYMPHOCYTE # 1.3 TH/MM3 (1.0-4.8); MEAN CELL VOLUME 82.1 FL (80.0-100.0); MEAN CORPUSCULAR HEMOGLOBIN 25.6 PG (27.0-34.0); MEAN CORPUSCULAR HGB CONC 31.1 % (32.0-36.0); MEAN PLATELET VOLUME 8.8 FL (7.0-11.0); MONO % 6.7 % (0.0-8.0); MONOCYTE # 0.8 TH/MM3 (0-0.9); NEUT % 80.9 % (16.0-70.0); PLATELET COUNT 258 TH/MM3 (150-450); RED BLOOD COUNT 2.14 MIL/MM3 (4.50-5.90); RED CELL DISTRIBUTION WIDTH 22.3 % (11.6-17.2); WHITE BLOOD COUNT 11.8 TH/MM3 (4.0-11.0)
[2017-09-03 22:37] LABS: HEMATOCRIT 17.6 % (39.0-51.0); HEMOGLOBIN 5.5 GM/DL (13.0-17.0)
[2017-09-03] MEDS ORDERED: SODIUM CHLOR 0.9% 250 ML INJ 250 ML IV ONE (22:45)
[2017-09-03] MEDS ORDERED: MORPHINE SULFATE 4 MG/ML INJ IV PUSH ONE (22:45)
[2017-09-03] MEDS ORDERED: METOCLOPRAMIDE HCL 10 MG/2 ML VIAL IV PUSH ONE (22:45)
--- NOTE | 2017-09-03 22:46 | RADRPT ---
EXAM DATE: 09/03/2017 10:39 PM EDT AGE/SEX: 72 years / Male INDICATIONS: Chest pain. CLINICAL DATA: This is the patient's initial encounter. Patient reports that signs and symptoms have been present for 1 day and indicates a pain score of 6/10. MEDICAL/SURGICAL HISTORY: Hypertension. Chronic obstructive pulmonary disease. CAD. AK. None . COMPARISON: Chest x-ray 04/04/2017. FINDINGS: A single AP view of the chest demonstrates the lungs to be symmetrically aerated without evidence of mass, infiltrate or effusion. The cardiomediastinal contours are unremarkable. Osseous structures a re intact. CONCLUSION: Negative examination. Electronically signed by: Juan Miguel Vides MD 09/03/2017 10:45 PM EDT
[2017-09-03] MEDS: PANTOPRAZOLE INJ 80 MG in SODIUM CHLORIDE 0.9% INJ 100 ML IV SCH (22:52)
[2017-09-03 23:00] LABS: BICARBONATE 18.8 MEQ/L (21.0-32.0); BLOOD UREA NITROGEN 76 MG/DL (7-18); CALCIUM 8.6 MG/DL (8.5-10.1); CHLORIDE 105 MEQ/L (98-107); CREATININE 5.21 MG/DL (0.60-1.30); GLOMERULAR FILTRATION RATE 11 ML/MIN (>89); GLUCOSE,RANDOM 177 MG/DL (74-106); MAGNESIUM 3.1 MG/DL (1.5-2.5); SODIUM (NA) 139 MEQ/L (136-145)
[2017-09-03] MEDS ORDERED: FURO40TA PO (23:00)
[2017-09-03 23:01] VITALS: BP 108/55; PULSE 79; RESP 22; O2SAT 100
[2017-09-03 23:22] LABS: TROPONIN I 0.99 NG/ML (0.02-0.05)
[2017-09-03] MEDS ORDERED: ONDANSETRON ODT 4 MG TAB PO PRN (23:30)
[2017-09-03] MEDS ORDERED: SENNOSIDES 8.6 MG TAB PO PRN (23:30)
[2017-09-03] MEDS ORDERED: MAGNESIUM HYDROXIDE SUSP 30 ML CUP PO PRN (23:30)
[2017-09-03] MEDS ORDERED: RESP: ALBUTEROL 2.5 MG/IPRATROPIUM 0.5 MG NEB (PRN) INH (23:30)
[2017-09-03] MEDS ORDERED: ACETAMINOPHEN 325 MG TAB PO PRN (23:30)
[2017-09-03] MEDS ORDERED: BISACODYL 10 MG SUPP RECTAL PRN (23:30)
[2017-09-03] MEDS ORDERED: MORPHINE SULFATE 4 MG/ML INJ IV PUSH PRN (23:30)
[2017-09-03] MEDS ORDERED: CHLORHEXIDINE GLUCONATE 2 % 1 PACK (2 CLOTHS) TOP PRN (23:30)
[2017-09-03] MEDS ORDERED: SODIUM CHLORIDE 0.9% FLUSH 10 ML FLUSH IV FLUSH PRN (23:30)
[2017-09-03] MEDS ORDERED: LACTULOSE SYRUP 20 GM/30 ML CUP PO PRN (23:30)
[2017-09-03] MEDS ORDERED: NURSING INFORMATION XX SCH (23:30)
[2017-09-03 23:42] VITALS: BP 107/53; PULSE 109; RESP 22; TEMP 98; O2SAT 100
[2017-09-03] MEDS: HEPARIN-D5W 25,000 U/250 ML 250 ML IV PRN (23:56)
[2017-09-04] VITALS (40 sets, daily range): BP systolic 86–136; BP diastolic 52–69; PULSE 75–100; RESP 13–33; TEMP 97.2–98.3; O2SAT 94–100
[2017-09-04] MEDS ORDERED: FUROSEMIDE 20 MG/2 ML VIAL IV PUSH ONE (00:15)
[2017-09-04] MEDS: CHLORHEXIDINE GLUCONATE 2 % 1 PACK (2 CLOTHS) TOP SCH (00:50)
--- NOTE | 2017-09-04 00:54 | HHI.HP ---
HPI Service Critical Care Medicine Primary Care Physician Non-Staff Admission Diagnosis nstemi; anemia; CKD; aorotic stenosis Diagnosis: Chief Complaint: Chest pain Travel History International Travel<30 Days: No Contact w/Intl Traveler <30 Da: No Traveled to Known Affected Are: No History of Present Illness HPI 72 year male presents to the emergency department from home by EMS transport for evaluation of retrosternal chest pain. No reported associated shortness of breath sweats nausea vomiting referred neck jaw back shoulder arm pain. Patient denies any abdominal pain. Patient has history of known coronary vessel disease myocardial infarction, angina pectoris as well as stage IV chronic kidney disease. Patient also has history of aortic insufficiency aortic stenosis COPD dyslipidemia hypertensive heart disease mitral regurgitation morbid obesity obstructive sleep apnea. Patient states he frequently has episodes of similar type of chest pain that is minutes indurations however this is been present since 8:30 PM and unremitting. Patient was noted to be hypotensive upon EMS arrival with a systolic blood pressure of 90 mmHg. Patient was given aspirin and a 500 cc bolus of normal saline. Patient also suffers from chronic anemia due to his CKD. Patient was seen as recently as March 2017 for a cardiac catheterization which was canceled secondary to his creatinine being 2.7 at the time with a GFR of 16 it was determined that the contrast would cause him to have further renal failure deterioration and require hemodialysis. Patient was also seen by cardiothoracic surgery and indicated that to evaluate him for a transcatheter aortic valve replacement he would need to undergo cardiac catheterization however as it was an elective catheterization of the time the study was canceled. Patient has had low hemoglobin in the past requiring blood transfusion. Patient does not take any iron supplements. Patient is currently on no blood thinning agents. Patient has not noticed any epistaxis, bleeding hemoptysis hematemesis coffee-ground emesis melena or hematochezia. Patient denies increased bruising. Patient failed Epogen therapy. Patient is able to identify exacerbating or alleviating factors. Patient also reports that he was recently started on Lasix as a new medication within the past 3 weeks. Patient has not noticed any lower extremity swelling. Patient has not noticed any new dyspnea on exertion or orthopnea. Patient was noted to have ischemic changes on his EKG. Dr. Damian from cardiology was contacted and starting heparin, aspirin. Patient's hemoglobin came back 5.5 and 2 units PRBCs were ordered. Patient was accepted for admission by critical care medicine service. When I evaluated the patient in the ER he was sitting up in the ER stretcher while receiving his first unit of PRBCs. He rated his chest pain at 2 out of 10 in intensity along with jaw pain. He stated this was not significantly better than when he came in. Off note rectal exam done by ER physician revealed black stool which was Hemoccult positive. PFSH Past Medical History Narrative Medical Abnormal EKG non-STEMI secondary to severe anemia in 2013 aortic insufficiency or stenosis with worsening valve area carpal tunnel left wrist chronic kidney disease stage IV COPD dyslipidemia hypertension mitral valve regurgitation morbid obesity obstructive sleep apnea spinal stenosis appendectomy and right carpal tunnel repair Autoimmune Disease: No Heart Rhythm Problems: Yes (MURMUR SINCE CHILDHOOD) Cancer: Yes (SKIN) Cardiovascular Problems: Yes (CAD, ) High Cholesterol: Yes Chest Pain: No Congestive Heart Failure: Yes (bnp 581 in er 05/13/13) COPD: Yes Diabetes: No Diminished Hearing: Yes (GLASSES/CONTACT LENSES) Endocrine: No Gastrointestinal Disorders: No Glaucoma: No Genitourinary: Yes Hepatitis: No Hiatal Hernia: No Hypertension: Yes Immune Disorder: No Musculoskeletal: Yes Neurologic: No Psychiatric: No Reproductive: No Respiratory: Yes (COPD, SLEEP APNEA) Integumentary: No Immunizations Current: Yes Myocardial Infarction: Yes (SILENT OR FOUND IN 2008) Renal Failure: Yes (STAGE IV) Sleep Apnea: Yes (cpap at hs) Thyroid Disease: No Past Surgical History Abdominal Surgery: Yes (appendectomy) Appendectomy: Yes Cardiac Surgery: No Pacemaker: No Tonsillectomy: Yes (CHILDHOOD) Other Surgery: Yes Social History Alcohol Use: Yes (COUPLE DRINKS PER DAY) Tobacco Use: Yes (1 PPD) Substance Use: No Allergies-Medications (Allergen,Severity, Reaction): Coded Allergies: No Known Allergies (Verified Adverse Reaction, Unknown, 09/03/17) Reported Meds & Prescriptions Reported Meds & Active Scripts Active Reported Furosemide 40 Mg Tab 40 Mg PO DAILY Vitamin D3 (Cholecalciferol) 1,000 Unit Tab 1,000 Units PO DAILY Sodium Bicarbonate 325 Mg Tab Unknown Dose PO BIDPC Metoprolol Succinate ER 24 HR (Metoprolol Succinate) 50 Mg Tab 50 Mg PO DAILY Losartan (Losartan Potassium) 50 Mg Tab 50 Mg PO DAILY Atorvastatin (Atorvastatin Calcium) 80 Mg Tab 80 Mg PO HS Amlodipine (Amlodipine Besylate) 10 Mg Tab 10 Mg PO DAILY Review of Systems Except as stated in HPI: all other systems reviewed are Neg General / Constitutional: No: Fever, Chills HENT: No: Congestion Cardiovascular: Positive: Chest Pain or Discomfort, No: Palpitations, Diaphoresis Respiratory: No: Shortness of Breath Gastrointestinal: Positive: Nausea, No: Vomiting, Abdominal Pain Genitourinary: No: Flank Pain Musculoskeletal: No: Myalgias, Arthralgias, Edema Skin: No Rash Neurologic: Positive: Weakness, No: Dizziness, Syncope, Focal Abnormalities, Coordination Problem Psychiatric: No: Anxiety Endocrine: No: Heat Intolerance Hematologic/Lymphatic: No: Easy Bruising Physical Exam Vital Signs Vital Signs Date Time Temp Pulse Resp B/P (MAP) Pulse Ox O2 Delivery O2 Flow Rate FiO2 09/04/17 00:00 98.0 97 22 113/57 99 09/03/17 23:42 98.0 109 22 107/53 100 09/03/17 23:01 79 22 108/55 (72) 100 Nasal Cannula 2.00 09/03/17 22:34 92 99/55 (70) 103/54 (70) 09/03/17 22:11 100 Nasal Cannula 2.00 09/03/17 21:48 98.1 100 22 118/62 (80) 96 Physical Exam Narrative GENERAL: Well-developed well-nourished male in no acute distress no respiratory distress GCS 15 SKIN: Warm and dry. HEAD: Normocephalic. EYES: Pallor present. No scleral icterus. No injection or drainage. NECK: Supple, trachea midline. No JVD or lymphadenopathy. CARDIOVASCULAR: Regular rate and rhythm without murmurs, gallops, or rubs. RESPIRATORY: Breath sounds equal bilaterally. No accessory muscle use. GASTROINTESTINAL: Abdomen soft, non-tender, nondistended. MUSCULOSKELETAL: No cyanosis, or edema. BACK: Nontender without obvious deformity. No CVA tenderness. Laboratory Laboratory Tests Test 09/03/17 22:10 White Blood Count 11.8 Red Blood Count 2.14 Hemoglobin 5.5 Hematocrit 17.6 Mean Corpuscular Volume 82.1 Mean Corpuscular Hemoglobin 25.6 Mean Corpuscular Hemoglobin Concent 31.1 Red Cell Distribution Width 22.3 Platelet Count 258 Mean Platelet Volume 8.8 Neutrophils (%) (Auto) 80.9 Lymphocytes (%) (Auto) 11.1 Monocytes (%) (Auto) 6.7 Eosinophils (%) (Auto) 0.7 Basophils (%) (Auto) 0.6 Neutrophils # (Auto) 9.5 Lymphocytes # (Auto) 1.3 Monocytes # (Auto) 0.8 Eosinophils # (Auto) 0.1 Basophils # (Auto) 0.1 CBC Comment DIFF FINAL Differential Comment Prothrombin Time 10.0 Prothromb Time International Ratio 1.0 Activated Partial Thromboplast Time 18.4 Blood Urea Nitrogen 76 Creatinine 5.21 Random Glucose 177 Calcium Level 8.6 Magnesium Level 3.1 Sodium Level 139 Potassium Level 4.1 Chloride Level 105 Carbon Dioxide Level 18.8 Anion Gap 15 Estimat Glomerular Filtration Rate 11 Total Creatine Kinase 169 Creatine Kinase MB 5.4 Troponin I 0.99 Result Diagram: 09/03/17220909/03/17 2210 Imaging Last Impressions Chest X-Ray 09/03/17 0000 Signed Impressions: CONCLUSION: Negative examination. Caprini VTE Risk Assessment Caprini VTE Risk Assessment: Mod/High Risk (score >= 2) Caprini Risk Assessment Model Point Value = 1 Point Value = 2 Point Value = 3 Point Value = 5 Age 41-60 Minor surgery BMI > 25 kg/m2 Swollen legs Varicose veins or History of unexplained or recurrent spontaneous Oral contraceptives or hormone replacement Sepsis (< 1 month) Serious lung disease, including pneumonia (< 1 month) Abnormal pulmonary function Acute myocardial infarction Congestive heart failure (< 1 month) History of inflammatory bowel disease Medical patient at bed rest Age 61-74 Arthroscopic surgery Major open surgery (> 45 min) Laparoscopic surgery (> 45 min) Malignancy Confined to bed (> 72 hours) Immobilizing plaster cast Central venous access Age >= 75 History of VTE Family history of VTE Factor V Leiden Prothrombin [id number] Lupus anticoagulant Anticardiolipin antibodies Elevated serum homocysteine Heparin-induced thrombocytopenia Other congenital or acquired thrombophilia Stroke (< 1 month) Elective arthroplasty Hip, pelvis, or leg fracture Acute spinal cord injury (< 1 month) Prophylaxis Regimen Total Risk Factor Score Risk Level Prophylaxis Regimen 0-1 Low Early ambulation 2 Moderate Order ONE of the following: *Sequential Compression Device (SCD) *Heparin 5000 units SQ BID 3-4 Higher Order ONE of the following medications: *Heparin 5000 units SQ TID *Enoxaparin/Lovenox 40 mg SQ daily (WT < 150 kg, CrCl > 30 mL/min) *Enoxaparin/Lovenox 30 mg SQ daily (WT < 150 kg, CrCl > 10-29 mL/min) *Enoxaparin/Lovenox 30 mg SQ BID (WT < 150 kg, CrCl > 30 mL/min) AND/OR *Sequential Compression Device (SCD) 5 or more Highest Order ONE of the following medications: *Heparin 5000 units SQ TID (Preferred with Epidurals) *Enoxaparin/Lovenox 40 mg SQ daily (WT < 150 kg, CrCl > 30 mL/min) *Enoxaparin/Lovenox 30 mg SQ daily (WT < 150 kg, CrCl > 10-29 mL/min) *Enoxaparin/Lovenox 30 mg SQ BID (WT < 150 kg, CrCl > 30 mL/min) AND *Sequential Compression Device (SCD) Assessment and Plan Assessment and Plan 72-year-old male with: Angina pectoris secondary to severe anemia/CAD Severe anemia Atrial fibrillation CAD Severe aortic stenosis CKD COPD Sleep apnea Hypertension Dyslipidemia Plan: Neuro: Follow neuro status, pain medications as needed. Cardiovascular: Watch for hypotension. 3 units PRBCs to be transfused to get hemoglobin up to 9 g percent. Starting heparin drip per cardiology. Received Lopressor 2.5 mg IV in the ER as well as morphine for chest pain. Cardiology consult requested for further evaluation. Patient is usually followed by Dr. Tidwell. 2D echo ordered. Avoid nitrates and BALTAZAR inhibitors due to severe aortic stenosis. Pulmonary: Supplemental O2, bronchodilators as needed. GI/liver: N.p.o. for now. GI consulted for black stool noted on rectal with occult blood positive. Renal/: Followed by Dr. Shah from nephrology will be consulted for CKD. Elevated BUN/creatinine noted. Strict intake output, monitor and replete electrolytes, follow BUN/creatinine. Lasix 40 mg IV every 12 hourly for diuresis to avoid fluid overload with blood transfusions. ID: No indication for antibiotics at this time. Heme: Follow CBC and coags. Transfuse to keep hemoglobin greater than 9 g percent. Endocrine: Watch for hyperglycemia, SSI for glycemic control if needed. Prophylaxis: Protonix/ SCDs, heparin gtt anticoagulation Nishant Bear MD Sep 04, 2017 00:54
[2017-09-04] MEDS ORDERED: FUROSEMIDE 40 MG/4 ML VIAL IV PUSH SCH (04:00)
[2017-09-04] MEDS ORDERED: HEPARIN SODIUM - IV 10,000 UNITS/10 ML VIAL IV PUSH PRN ×2 (04:30)
--- NOTE | 2017-09-04 04:59 | RADRPT ---
EXAM DATE: 09/04/2017 4:54 AM EDT AGE/SEX: 72 years / Male INDICATIONS: Shortness of breath, possible pulmonary disease. CLINICAL DATA: This is the patient's subsequent encounter. Patient reports that signs and symptoms h ave been present for 2 days and indicates a pain score of 2/10. MEDICAL/SURGICAL HISTORY: Hypertension. Chronic obstructive pulmonary disease. CAD IL None. COMPARISON: C, CHEST SINGLE AP, 09/03/2017. . FINDINGS: Heart size enlarged. Minimal basilar atelectasis. No effusion or pneumothorax. CONCLUSION: Cardiomegaly with minimal basilar atelectasis. No significant change from September 03. Electronically signed by: Charli Oliveira MD 09/04/2017 4:57 AM EDT
[2017-09-04] MEDS ORDERED: ASPIRIN EC 81 MG TABEC PO SCH (09:00)
[2017-09-04] MEDS: DOCUSATE SODIUM 50 MG/SENNA 8.6 MG TAB PO SCH ×2 (09:00→20:42)
--- NOTE | 2017-09-04 09:04 | MB ---
cc: Pepe Anderson MD DATE: 09/04/2017 REASON FOR CONSULTATION: Chest pain, atrial fibrillation, aortic stenosis. HISTORY OF PRESENT ILLNESS: The patient is a 72-year-old white male, followed in our office by Dr. Katlyn Tidwell, with a history of severe aortic stenosis, severe chronic renal insufficiency, COPD, sleep apnea, who presented to the hospital mainly with complaints of chest pain. The patient states he has been having occasional substernal chest "pressure" for the past few months, associated with shortness of breath without nausea or diaphoresis, most often precipitated by exertion. In general, the chest pains have been lasting only a minute and relieved by rest. Yesterday, however, the chest discomfort did not resolve and persisted for at least a few hours. He was found to be in atrial fibrillation. Occasionally, he experiences lightheadedness without syncope or near syncope. About a month ago, he had minimal problems with pedal edema, which resolved with diuretic therapy. He denies paroxysmal nocturnal dyspnea, flu symptoms, orthopnea, or palpitations. Earlier this year, he was actually evaluated by Dr. Srinivas Oliveira for possible transcatheter aortic valve replacement, but his creatinine was found to be elevated and cardiac catheterization was canceled. PAST MEDICAL HISTORY: 1. Severe aortic stenosis with a mean transvalvular aortic gradient of 54 mmHg by echo this week. Left ventricular function is normal. 2. Chronic renal insufficiency, stage IV. 3. Chronic obstructive pulmonary disease 3 disease. 4. Hyperlipidemia. 5. Hypertension. 6. Sleep apnea. CARDIAC MEDICATIONS AT HOME: 1. Furosemide 40 mg daily. 2. Metoprolol succinate 50 mg daily. 3. Losartan 50 mg daily. 4. Atorvastatin 80 mg at bedtime. 5. Amlodipine 10 mg daily. ALLERGIES: NO KNOWN DRUG ALLERGIES. FAMILY HISTORY: The patient's father sustained a myocardial infarction at age 59. SOCIAL HISTORY: The patient smokes about a pack of cigarettes per day. He also drinks a couple drinks per day chronically. REVIEW OF SYSTEMS: As in the history of present illness, otherwise negative or noncontributory. He also denies headache, abdominal pain, melena, bright red blood per rectum, dyspepsia. PHYSICAL EXAMINATION: VITAL SIGNS: His blood pressure is 102/57 with a pulse of 80, respirations 20. GENERAL: He is a well-developed, well-nourished white male, in no acute distress. NECK: Jugular venous pressure is hard to assess. Carotid pulses are 1+ bilaterally without bruits. CHEST: Reveals clear lungs kinney. CARDIAC: He has a regular rhythm and rate with a grade II/ systolic ejection murmur heard at the base of the heart. The S2 heart sound is markedly diminished. No gallop is audible. ABDOMEN: He has a soft, nontender abdomen. Bowel sounds are present. There is no definite hepatosplenomegaly. EXTREMITIES: Reveals no clubbing, cyanosis or edema. DIAGNOSTIC STUDIES: EKG shows atrial fibrillation, diffuse ST abnormality, consider ischemia. Chest x-ray shows no acute disease. Laboratory data includes hemoglobin 5.5, platelets 258, WBC 11.8. Potassium 4.1. Troponin 0.99. BUN 76, creatinine 5.21. IMPRESSION: Unstable angina, paroxysmal atrial fibrillation, severe aortic stenosis in this 72-year-old white male with a history of known severe aortic stenosis, severe chronic renal insufficiency, chronic obstructive pulmonary disease, sleep apnea, and hypertension. Admission EKG does reveal atrial fibrillation with controlled heart rate. He is now back in sinus rhythm. The patient's thromboembolic risk is overall moderately elevated with his age and history of hypertension. With his severe anemia; however, he is not a candidate for oral anticoagulation therapy. I suspect his anemia is not only due to chronic renal insufficiency, but gastrointestinal bleeding as well. His chest pain symptoms are most suggestive of angina, which he has been having chronically, now in an overall unstable pattern. Some of the angina may be due to severe aortic stenosis though he does also have ischemic ST changes on EKG. At this point, with his renal insufficiency and severe anemia, he is not a good candidate for invasive cardiac evaluation. RECOMMENDATIONS: 1. Agree with holding his angiotensin receptor jacy. Would also hold his diuretic, as he has had worsening of his renal indices, and there is no definite evidence for fluid overload at this point. 2. Overall, would recommend initiation of dialysis and stabilization/complete workup of his anemia. Once these 2 problems have been addressed, then would recommend cardiac catheterization and eventually transcatheter aortic valve replacement. 3. Will start amiodarone orally to help suppress atrial fibrillation. As noted above, at this time, he is not a good candidate for oral anticoagulation therapy, but will initiate daily baby aspirin if OK from GI/medical standpoint. MD ALVARO Lu/DANNY , 08:07 AM , 09:04 AM MTD
--- NOTE | 2017-09-04 10:22 | PD.CONS ---
HPI History of Present Illness This is a 72 year old M with PMH significant for , CKD, COPD, hyperlipidemia, HTN, MADAN, anemia, and spinal stenosis who presented to the ER yesterday with complaints of mid chest pain radiating to his jaw. Pt reports symptoms began after mild exertion, denies SOB and palpitations. Our service has been consulted to evaluate pt for anemia and per ER notes a rectal exam revealed black stool that was Hemoccult positive. Pt has history of anemia and has previously required multiple blood transfusions, states has been told that the anemia is secondary to CKD. He was previously on Procrit with no improvement. Pts last EGD and colonoscopy in 2013 revealed very poor prep, diverticulosis, hemorrhoids, and gastritis. Pt denies any GI symptoms at this time including nausea, vomiting, abdominal pain, acid reflux, heartburn, constipation, diarrhea. States he does not check his BMs so he was unaware that they have been black. Denies NSAIDs use. admits to drinking 1-2 liquor drinks a day. Also smokes 1 PPD. Denies family history significant for GI issues. (Merary Rossi) PFSH Past Medical History HTN MADAN Hyperlipidemia HTN Spinal stenosis Gastritis Anemia Past Surgical History Appendectomy (Merary Rossi) Coded Allergies: No Known Allergies (Verified Adverse Reaction, Unknown, 09/03/17) Social History ETOH- 1-2 liquor drinks a day Smokes 1 PPD Denies illicit drug use (Merary Rossi) Review of Systems Gastrointestinal: COMPLAINS OF: Black stools, DENIES: Abdominal pain, Bloody stools, Constipation, Diarrhea, Nausea, Vomiting, Difficulty Swallowing, Odynophagia, Swelling of Abdomen, Heartburn, Hematemesis (Merary Rossi) GI Exam Vitals I&O Vital Signs Date Time Temp Pulse Resp B/P (MAP) Pulse Ox O2 Delivery O2 Flow Rate FiO2 09/04/17 07:51 100 OWN CPAP 2.00 09/04/17 06:00 81 25 100 09/04/17 06:00 81 09/04/17 05:38 79 16 102/57 100 09/04/17 05:13 75 16 102/55 100 09/04/17 05:00 75 16 102/55 (71) 100 09/04/17 04:40 97.2 78 16 98/53 100 09/04/17 04:00 79 09/04/17 04:00 98.2 79 18 96/52 (67) 100 09/04/17 03:56 98.0 77 13 96/52 100 09/04/17 03:00 78 15 115/58 (77) 100 09/04/17 02:17 100 Nasal Cannula 2.00 09/04/17 02:00 96 09/04/17 02:00 96 31 99 09/04/17 01:34 97.7 87 16 116/59 100 09/04/17 01:17 98.3 89 16 116/59 100 09/04/17 01:01 97.9 93 18 117/61 100 09/04/17 01:00 92 25 117/61 (79) 100 09/04/17 00:31 09/04/17 00:30 100 09/04/17 00:30 97.9 100 16 86/53 (64) 100 09/04/17 00:00 98.0 97 22 113/57 99 09/03/17 23:42 98.0 109 22 107/53 100 09/03/17 23:01 79 22 108/55 (72) 100 Nasal Cannula 2.00 09/03/17 22:34 92 99/55 (70) 103/54 (70) 09/03/17 22:11 100 Nasal Cannula 2.00 09/03/17 21:48 98.1 100 22 118/62 (80) 96 I/O 09/03/17 09/03/17 09/03/17 09/04/17 09/04/17 09/04/17 07:00 15:00 23:00 07:00 15:00 23:00 Intake Total 35 ml 1671 ml Output Total 500 ml Balance 35 ml 1171 ml Intake IV Total 35 ml 391 ml Packed Cells 1200 ml Blood Product IV Normal Saline Flush 80 ml Output Urine Total 500 ml # Bowel Movements 0 Imaging Last Impressions Chest X-Ray 09/04/17 06 Signed Impressions: CONCLUSION: Cardiomegaly with minimal basilar atelectasis. No significant change from September 03. Laboratory Test 09/03/17 22:10 09/04/17 00:40 White Blood Count 11.8 TH/MM3 Red Blood Count 2.14 MIL/MM3 Hemoglobin 5.5 GM/DL Hematocrit 17.6 % Mean Corpuscular Volume 82.1 FL Mean Corpuscular Hemoglobin 25.6 PG Mean Corpuscular Hemoglobin Concent 31.1 % Red Cell Distribution Width 22.3 % Platelet Count 258 TH/MM3 Mean Platelet Volume 8.8 FL Neutrophils (%) (Auto) 80.9 % Lymphocytes (%) (Auto) 11.1 % Monocytes (%) (Auto) 6.7 % Eosinophils (%) (Auto) 0.7 % Basophils (%) (Auto) 0.6 % Neutrophils # (Auto) 9.5 TH/MM3 Lymphocytes # (Auto) 1.3 TH/MM3 Monocytes # (Auto) 0.8 TH/MM3 Eosinophils # (Auto) 0.1 TH/MM3 Basophils # (Auto) 0.1 TH/MM3 CBC Comment DIFF FINAL Differential Comment Prothrombin Time 10.0 SEC Prothromb Time International Ratio 1.0 RATIO Activated Partial Thromboplast Time 18.4 SEC Blood Urea Nitrogen 76 MG/DL Creatinine 5.21 MG/DL Random Glucose 177 MG/DL Calcium Level 8.6 MG/DL Magnesium Level 3.1 MG/DL Sodium Level 139 MEQ/L Potassium Level 4.1 MEQ/L Chloride Level 105 MEQ/L Carbon Dioxide Level 18.8 MEQ/L Anion Gap 15 MEQ/L Estimat Glomerular Filtration Rate 11 ML/MIN Total Creatine Kinase 169 U/L Creatine Kinase MB 5.4 NG/ML Troponin I 0.99 NG/ML Nasal Screen MRSA (PCR) MRSA NOT DETECTED Physical Examination HEENT: Normocephalic; atraumatic CHEST: Even/unlabored CARDIAC: RRR (+) murmur ABDOMEN: Soft, nondistended, nontender; bowel sounds active EXTREMITIES: No clubbing, cyanosis, or edema. SKIN: Normal; no rash; no jaundice. RESIDENTIAL SPECIALIST: Alert and oriented times three. (Mearry Rossi) Assessment and Plan Plan Assessment: - Anemia- long history of anemia- has previously required multiple blood transfusions, has been told the anemia is secondary to CKD, previously on Procrit with no improvement. Last EGD and colonoscopy in 2013 --> Very poor prep, diverticulosis, hemorrhoids, and gastritis. H/H currently 5.5/17.6 receiving 3 U PRBCs per CCM Per ER notes, rectal exam revealed black stool that was Hemoccult positive. Pt denies NSAIDs. Drinks 1-2 liquor drinks a day. Smokes 1 PPD. - Positive troponin secondary to severe anemia- pt was placed on Heparin gtt- discussed with Dr. Anderson, ski lift operator on the phone, states OK to DC Heparin - CKD- per attending Discussed with Dr Anderson, cardiologists, states OK to proceed with EGD and discontinue Heparin gtt. Discussed with Dr. Bear. Discussed with THIERRY Wallace. Heparin gtt to be discontinued now, continue Protonix gtt, EGD after 4 pm today. Plan: EGD today Obtain consent Keep NPO Heparin gtt on hold Monitor H/H Protonix gtt Further recommendations based on findings of above Pt has been seen and examined by myself and Dr. Baez and this note is written on his behalf (Merary Rossi) Physician Comments Seen with jhon Reagan as above. Will proceed with EGD after holding heparin. Thank you for the consult. (Chris Baez MD) Merary Rossi Sep 04, 2017 10:22 Chris Baez MD Sep 04, 2017 12:00
[2017-09-04] MEDS: AMIODARONE 200 MG TAB PO SCH ×2 (10:58→20:38)
[2017-09-04] MEDS: CHOLECALCIFEROL (VIT D3) 1000 UNIT TAB PO SCH (10:59)
[2017-09-04] MEDS: SODIUM CHLORIDE 0.9% FLUSH 10 ML FLUSH IV FLUSH SCH ×2 (10:59→20:42)
[2017-09-04] MEDS: ASPIRIN EC 81 MG TABEC PO SCH (10:59)
[2017-09-04] MEDS: METOPROLOL SUCCINATE 50 MG EXTENDED RELEASE TAB PO SCH (10:59)
[2017-09-04] MEDS: PANTOPRAZOLE INJ 80 MG in SODIUM CHLORIDE 0.9% INJ 100 ML IV SCH ×2 (11:02→22:00)
[2017-09-04] MEDS ORDERED: LIDOCAINE HCL 1% PF 5 ML SYRINGE OTHER ONE (12:00)
[2017-09-04] MEDS ORDERED: PROPOFOL 200 MG/20 ML AMP IV ONE (12:00)
[2017-09-04 12:40] LABS: AUTOMATED NEUTROPHIL # 10.9 TH/MM3 (1.8-7.7); BASOPHIL # 0.1 TH/MM3 (0-0.2); BASOPHIL % 0.6 % (0.0-2.0); EOSINOPHIL # 0.1 TH/MM3 (0-0.4); EOSINOPHIL % 0.8 % (0.0-4.0); HEMATOCRIT 25.8 % (39.0-51.0); HEMOGLOBIN 8.4 GM/DL (13.0-17.0); LYMPH % 7.2 % (9.0-44.0); LYMPHOCYTE # 0.9 TH/MM3 (1.0-4.8); MEAN CELL VOLUME 81.1 FL (80.0-100.0); MEAN CORPUSCULAR HEMOGLOBIN 26.4 PG (27.0-34.0); MEAN CORPUSCULAR HGB CONC 32.6 % (32.0-36.0); MEAN PLATELET VOLUME 9.1 FL (7.0-11.0); MONO % 8.7 % (0.0-8.0); MONOCYTE # 1.2 TH/MM3 (0-0.9); NEUT % 82.7 % (16.0-70.0); PLATELET COUNT 237 TH/MM3 (150-450); RED BLOOD COUNT 3.18 MIL/MM3 (4.50-5.90); RED CELL DISTRIBUTION WIDTH 18.4 % (11.6-17.2); WHITE BLOOD COUNT 13.2 TH/MM3 (4.0-11.0)
[2017-09-04 12:56] LABS: PROTHROMBIN TIME - PATIENT 10.2 SEC (9.8-11.6)
[2017-09-04 12:57] LABS: ALBUMIN 3.2 GM/DL (3.4-5.0); AST (GOT) 80 U/L (15-37); BLOOD UREA NITROGEN 72 MG/DL (7-18); CALCIUM 8.9 MG/DL (8.5-10.1); CHLORIDE 110 MEQ/L (98-107); CREATININE 4.77 MG/DL (0.60-1.30); GLOMERULAR FILTRATION RATE 12 ML/MIN (>89); GLUCOSE,RANDOM 96 MG/DL (74-106); SODIUM (NA) 143 MEQ/L (136-145)
[2017-09-04 13:02] LABS: ALKALINE PHOSPHATASE 61 U/L (45-117); ALT (GPT) 28 U/L (12-78); PHOSPHORUS 5.6 MG/DL (2.5-4.9); TOTAL BILIRUBIN ADULT 0.8 MG/DL (0.2-1.0); TOTAL PROTEIN 6.1 GM/DL (6.4-8.2)
--- NOTE | 2017-09-04 13:24 | PD.CONS ---
HPI Service Nephrology Consult Requested By Dr. Bear Reason for Consult Advanced kidney disease stage V Primary Care Physician Non-Staff History of Present Illness Patient is a 72-year-old white male with history of chronic kidney disease, hypertension, stage IV to stage V, anemia, severe aortic stenosis who was having chest pain and had some shortness of breath came in the emergency room and has a hemoglobin of 5.5, BUN 76 creatinine 5.21, patient is having cardiac issues and 2017 he was told to undergo cardiac catheterization because of elevated creatinine this was postponed in the last minute, patient was told to consider peritoneal dialysis in the clinic and so far has not seen the surgeon, he is seen in the ICU he is going to have endoscopy done. Review of Systems Constitutional: COMPLAINS OF: Fatigue Respiratory: COMPLAINS OF: Shortness of breath Cardiovascular: COMPLAINS OF: Chest pain, Dyspnea on Exertion, Lower Extremity Edema Musculoskeletal: COMPLAINS OF: Joint pain Psychiatric: COMPLAINS OF: Anxiety Past Family Social History Allergies: Coded Allergies: No Known Allergies (Verified Adverse Reaction, Unknown, 09/03/17) Past Medical History HTN MADAN Hyperlipidemia HTN Spinal stenosis Gastritis Anemia Past Surgical History Appendectomy Reported Medications Reported Meds & Active Scripts Active Reported Furosemide 40 Mg Tab 40 Mg PO DAILY Vitamin D3 (Cholecalciferol) 1,000 Unit Tab 1,000 Units PO DAILY Sodium Bicarbonate 325 Mg Tab Unknown Dose PO BIDPC Metoprolol Succinate ER 24 HR (Metoprolol Succinate) 50 Mg Tab 50 Mg PO DAILY Losartan (Losartan Potassium) 50 Mg Tab 50 Mg PO DAILY Atorvastatin (Atorvastatin Calcium) 80 Mg Tab 80 Mg PO HS Amlodipine (Amlodipine Besylate) 10 Mg Tab 10 Mg PO DAILY Active Ordered Medications Current Medications Medications (Trade) Dose Ordered Sig/Marylou Route Start Time Stop Time Status Last Admin Pantoprazole Sodium 80 mg/ Sodium Chloride 100 ml @ 10 mls/hr Q10H IV 09/03/17 22:19 09/04/17 11:02 Sodium Chloride 250 ml @ 15 mls/hr ONCE ONCE IV 09/03/17 22:45 09/04/17 15:24 09/03/17 23:50 Heparin Sodium/ Dextrose 250 ml @ 10.417 mls/ hr TITRATE PRN IV 09/03/17 23:30 Future Hold 09/03/17 23:56 Sodium Chloride 1,000 ml @ 30 mls/hr Q24H IV 09/03/17 23:21 (NS Flush) 2 ml UNSCH PRN IV FLUSH 09/03/17 23:30 (NS Flush) 2 ml BID IV FLUSH 09/04/17 09:00 09/04/17 10:59 (Tylenol) 650 mg Q6H PRN PO 09/03/17 23:30 (Morphine Inj) 2 mg Q2H PRN IV PUSH 09/03/17 23:30 (Zofran Odt) 4 mg Q6H PRN PO 09/03/17 23:30 (Duoneb Neb) 1 ampule Q2HR NEB PRN INH 09/03/17 23:30 ([facility] Information) 1 Q361D XX 09/03/17 23:30 09/03/17 23:30 (Chlorhexidine 2% Cloth) 3 pack Taper DAILY@04 TOP 09/04/17 04:00 08/31/18 03:59 09/04/17 00:50 (Chlorhexidine 2% Cloth) 3 pack UNSCH PRN TOP 09/03/17 23:30 (Sylvie-Colace) 1 tab BID PO 09/04/17 09:00 (Milk Of Magnesia Liq) 30 ml Q12H PRN PO 09/03/17 23:30 (Senokot) 17.2 mg Q12H PRN PO 09/03/17 23:30 (Dulcolax Supp) 10 mg DAILY PRN RECTAL 09/03/17 23:30 (Lactulose Liq) 30 ml DAILY PRN PO 09/03/17 23:30 (Norvasc) 10 mg DAILY PO 09/04/17 09:00 09/04/17 10:59 (Lipitor) 80 mg HS PO 09/04/17 21:00 (Vitamin D3) 1,000 units DAILY PO 09/04/17 09:00 09/04/17 10:59 (Toprol Xl) 50 mg DAILY PO 09/04/17 09:00 09/04/17 10:59 (Ecotrin Ec) 81 mg DAILY PO 09/04/17 09:00 09/04/17 10:59 (Cordarone) 400 mg Q12HR PO 09/04/17 09:00 09/04/17 10:58 Family History Noncontributory Social History 1 pack per day cigarette smoking, drinks alcohol 1-2 drinks a day Physical Exam Vital Signs Vital Signs Date Time Temp Pulse Resp B/P (MAP) Pulse Ox O2 Delivery O2 Flow Rate FiO2 09/04/17 12:00 75 09/04/17 11:00 84 09/04/17 10:00 79 09/04/17 09:00 86 09/04/17 08:00 91 09/04/17 07:51 100 OWN CPAP 2.00 09/04/17 07:00 75 09/04/17 06:00 81 25 100 09/04/17 06:00 81 09/04/17 05:38 79 16 102/57 100 09/04/17 05:13 75 16 102/55 100 09/04/17 05:00 75 16 102/55 (71) 100 09/04/17 04:40 97.2 78 16 98/53 100 09/04/17 04:00 79 09/04/17 04:00 98.2 79 18 96/52 (67) 100 09/04/17 03:56 98.0 77 13 96/52 100 09/04/17 03:00 78 15 115/58 (77) 100 09/04/17 02:17 100 Nasal Cannula 2.00 09/04/17 02:00 96 09/04/17 02:00 96 31 99 09/04/17 01:34 97.7 87 16 116/59 100 09/04/17 01:17 98.3 89 16 116/59 100 09/04/17 01:01 97.9 93 18 117/61 100 09/04/17 01:00 92 25 117/61 (79) 100 09/04/17 00:31 09/04/17 00:30 100 09/04/17 00:30 97.9 100 16 86/53 (64) 100 09/04/17 00:00 98.0 97 22 113/57 99 09/03/17 23:42 98.0 109 22 107/53 100 09/03/17 23:01 79 22 108/55 (72) 100 Nasal Cannula 2.00 09/03/17 22:34 92 99/55 (70) 103/54 (70) 09/03/17 22:11 100 Nasal Cannula 2.00 09/03/17 21:48 98.1 100 22 118/62 (80) 96 Physical Exam GENERAL: Well-nourished, well-developed patient. SKIN: Warm and dry. HEAD: Normocephalic. EYES: No scleral icterus. No injection or drainage. NECK: Supple, trachea midline. No JVD or lymphadenopathy. CARDIOVASCULAR: Regular rate and rhythm with 3 /6 systolic murmurs RESPIRATORY: Breath sounds equal bilaterally. No accessory muscle use. GASTROINTESTINAL: Abdomen soft, non-tender, nondistended. EXTREMITIES: No cyanosis, 1+ edema. NEUROLOGICAL: Awake, alert, and oriented x 3. Non-focal. Laboratory Laboratory Tests Test 09/03/17 22:10 09/04/17 00:40 09/04/17 12:08 White Blood Count 11.8 13.2 Red Blood Count 2.14 3.18 Hemoglobin 5.5 8.4 Hematocrit 17.6 25.8 Mean Corpuscular Volume 82.1 81.1 Mean Corpuscular Hemoglobin 25.6 26.4 Mean Corpuscular Hemoglobin Concent 31.1 32.6 Red Cell Distribution Width 22.3 18.4 Platelet Count 258 237 Mean Platelet Volume 8.8 9.1 Neutrophils (%) (Auto) 80.9 82.7 Lymphocytes (%) (Auto) 11.1 7.2 Monocytes (%) (Auto) 6.7 8.7 Eosinophils (%) (Auto) 0.7 0.8 Basophils (%) (Auto) 0.6 0.6 Neutrophils # (Auto) 9.5 10.9 Lymphocytes # (Auto) 1.3 0.9 Monocytes # (Auto) 0.8 1.2 Eosinophils # (Auto) 0.1 0.1 Basophils # (Auto) 0.1 0.1 CBC Comment DIFF FINAL DIFF FINAL Differential Comment Prothrombin Time 10.0 10.2 Prothromb Time International Ratio 1.0 1.0 Activated Partial Thromboplast Time 18.4 22.6 Blood Urea Nitrogen 76 72 Creatinine 5.21 4.77 Random Glucose 177 96 Calcium Level 8.6 8.9 Magnesium Level 3.1 3.0 Sodium Level 139 143 Potassium Level 4.1 3.9 Chloride Level 105 110 Carbon Dioxide Level 18.8 19.0 Anion Gap 15 14 Estimat Glomerular Filtration Rate 11 12 Total Creatine Kinase 169 Creatine Kinase MB 5.4 Troponin I 0.99 Nasal Screen MRSA (PCR) MRSA NOT DETECTED Albumin 3.2 Aspartate Amino Transf (AST/SGOT) 80 Result Diagram: 09/04/17 1208 09/04/17 1208 Imaging Last Impressions Chest X-Ray 09/04/17 0600 Signed Impressions: CONCLUSION: Cardiomegaly with minimal basilar atelectasis. No significant change from September 03. Assessment and Plan Problem List: (1) Acute renal failure ICD Codes: N17.9 - Acute kidney failure, unspecified Plan: Patient has advanced renal failure and likely need peritoneal dialysis this has been explained to him and again I went over the procedure upon this admission I will consider surgical team to talk to him about placement of Tenckhoff catheter I will also talk to peritoneal dialysis clinic It appears he has advanced kidney disease with severe anemia possible GI bleed going for endoscopy and he will need heart catheterization he has to strongly consider dialysis Continue to monitor Follow phosphorus level (2) CKD (chronic kidney disease) stage 4, GFR 15-29 ml/min ICD Codes: N18.4 - Chronic kidney disease, stage 4 (severe) Plan: Patient may have progress to stage V (3) GI bleed ICD Codes: K92.2 - Gastrointestinal hemorrhage, unspecified Status: Acute Plan: Endoscopy plan (4) Anemia ICD Codes: D64.9 - Anemia Status: Acute Plan: Status post blood transfusion (5) ACS (acute coronary syndrome) ICD Codes: I24.9 - Acute ischemic heart disease, unspecified Status: Acute Plan: Cardiology following (6) Hypertension ICD Codes: I10 - Essential (primary) hypertension Plan: Continue to monitor Gaurav Shah MD Sep 04, 2017 13:24
[2017-09-04] MEDS ORDERED: DO NOT ADM ANY ANTICOAGULANT DRUGS PRN (16:00)
--- NOTE | 2017-09-04 16:15 | GIPROC ---
[facility] [address] [facility]. [place], [address] EGD PROCEDURE REPORT EXAM DATE: 09/04/2017 PATIENT NAME: Dayday Ward MR #: [id number] BIRTHDATE: 1945 ATTENDING: Chris Baez MD ORDER #: [id number] OLIVING MACHINE OPERATOR: Annalisa Styles and Esha Rodriguez STATUS: inpatient INDICATIONS: The patient is a 72 yr old male here for an EGD due to anemia PROCEDURE PERFORMED: EGD w/ biopsy MEDICATIONS: None and Per Anesthesia. TOPICAL ANESTHETIC: Lidocaine [place]valon CONSENT: The patient understands the risks and benefits of the procedure and understands that these risks include, but are not limited to: sedation, allergic reaction, infection, perforation and/or bleeding. Alternative means of evaluation and treatment include, among others: physical exam, x-rays, and/or surgical intervention. The patient elects to proceed with this endoscopic procedure. medical equipment was checked for proper function. Hand hygiene and appropriate measures for infection prevention was taken. After the risks, benefits and alternatives of the procedure were thoroughly explained, Informed consent was verified, confirmed and timeout was successfully executed by the treatment team. The patient was anesthetized with topical anesthesia and the [id number] (Pedi C) endoscope was introduced through the mouth and advanced to the second portion of the duodenum. Retroflexion was performed and was normal The gastroscope was then slowly withdrawn and removed. ESOPHAGUS: The mucosa of the esophagus appeared normal. STOMACH: There was moderate and ulcerative gastritis in the gastric antrum. Multiple biopsies were performed using cold forceps. Sample sent for histology. DUODENUM: The duodenal mucosa appeared normal in the duodenal bulb, 2nd part duodenum, and 3rd part duodenum. ADVERSE EVENTS: There were no complications. IMPRESSIONS: 1. The esophagus appeared normal 2. There was gastritis in the gastric antrum; multiple biopsies were performed 3. Normal duodenal mucosa in the duodenal bulb, 2nd part duodenum, and 3rd part duodenum 4. Retroflexion was performed and was normal RECOMMENDATIONS: 1. Await biopsy results. Biopsy results will not be ready for 7-10 days. If you don't hear from us in two weeks, call our office for biopsy results. 2. Continue PPI PATIENT CONDITION: stable DISPOSITION: Observation REPEAT EXAM: NONE Chris Baez MD eSigned: Chris Baez MD 09/04/2017 4:15 PM cc: PATIENT NAME: Ed Dayday D MR#: [id number]
[2017-09-04] MEDS: ATORVASTATIN 80 MG TAB PO SCH (20:42)
[2017-09-04] MEDS: SODIUM CHLOR 0.9% 1000 ML INJ 1,000 ML IV SCH (22:12)
[2017-09-05] VITALS (31 sets, daily range): BP systolic 116–150; BP diastolic 49–91; PULSE 72–102; RESP 15–42; TEMP 98.3–98.9; O2SAT 92–100
[2017-09-05] MEDS: PANTOPRAZOLE INJ 80 MG in SODIUM CHLORIDE 0.9% INJ 100 ML IV SCH (01:51)
[2017-09-05] MEDS: CHLORHEXIDINE GLUCONATE 2 % 1 PACK (2 CLOTHS) TOP SCH (01:51)
[2017-09-05 07:00] LABS: BICARBONATE 20.7 MEQ/L (21.0-32.0); CALCIUM 8.7 MG/DL (8.5-10.1); CREATININE 4.46 MG/DL (0.60-1.30); PHOSPHORUS 4.4 MG/DL (2.5-4.9)
--- NOTE | 2017-09-05 08:27 | PD.CARD.PN ---
Subjective Subjective Remarks Denies CP, dyspnea at rest. Denies dizziness, PND, palpitations. Objective Medications Item Value Date Time Atorvastatin 80 mg 09/04/17 2100 Calcium HS/PO 09/04/172041 (Lipitor) Amlodipine 10 mg 09/04/17 0900 Besylate DAILY/PO 09/04/17 105 (Norvasc) Metoprolol 50 mg 09/04/17 0900 Succinate DAILY/PO 09/04/171058 (Toprol Xl) Aspirin 81 mg 09/04/17 0900 (Ecotrin Ec) DAILY/PO 09/04/171058 Amiodarone HCl 400 mg 09/04/17 0900 (Cordarone) Q12HR/PO 09/04/172037 Current Medications Medications (Trade) Dose Ordered Sig/Marylou Route Start Time Stop Time Status Last Admin Pantoprazole Sodium 80 mg/ Sodium Chloride 100 ml @ 10 mls/hr Q10H IV 09/03/17 22:19 09/05/17 01:51 Heparin Sodium/ Dextrose 250 ml @ 10.417 mls/ hr TITRATE PRN IV 09/03/17 23:30 Future Hold 09/03/17 23:56 Sodium Chloride 1,000 ml @ 30 mls/hr Q24H IV 09/03/17 23:21 (NS Flush) 2 ml UNSCH PRN IV FLUSH 09/03/17 23:30 (NS Flush) 2 ml BID IV FLUSH 09/04/17 09:00 09/04/17 20:42 (Tylenol) 650 mg Q6H PRN PO 09/03/17 23:30 (Morphine Inj) 2 mg Q2H PRN IV PUSH 09/03/17 23:30 (Zofran Odt) 4 mg Q6H PRN PO 09/03/17 23:30 (Duoneb Neb) 1 ampule Q2HR NEB PRN INH 09/03/17 23:30 09/04/17 12:14 ([facility] Information) 1 Q361D XX 09/03/17 23:30 09/03/17 23:30 (Chlorhexidine 2% Cloth) 3 pack Taper DAILY@04 TOP 09/04/17 04:00 08/31/18 03:59 09/05/17 01:51 (Chlorhexidine 2% Cloth) 3 pack UNSCH PRN TOP 09/03/17 23:30 (Sylvie-Colace) 1 tab BID PO 09/04/17 09:00 (Milk Of Magnesia Liq) 30 ml Q12H PRN PO 09/03/17 23:30 (Senokot) 17.2 mg Q12H PRN PO 09/03/17 23:30 (Dulcolax Supp) 10 mg DAILY PRN RECTAL 09/03/17 23:30 (Lactulose Liq) 30 ml DAILY PRN PO 09/03/17 23:30 (Norvasc) 10 mg DAILY PO 09/04/17 09:00 09/04/17 10:59 (Lipitor) 80 mg HS PO 09/04/17 21:00 09/04/17 20:42 (Vitamin D3) 1,000 units DAILY PO 09/04/17 09:00 09/04/17 10:59 (Toprol Xl) 50 mg DAILY PO 09/04/17 09:00 09/04/17 10:59 (Ecotrin Ec) 81 mg DAILY PO 09/04/17 09:00 09/04/17 10:59 (Cordarone) 400 mg Q12HR PO 09/04/17 09:00 09/04/17 20:38 ([facility] Information) ALL NURSING DEPARTME... UNSCH PRN .XX 09/04/17 16:00 09/05/17 15:59 Vital Signs / I&O Vital Signs Date Time Temp Pulse Resp B/P (MAP) Pulse Ox O2 Delivery O2 Flow Rate FiO2 09/05/17 07:53 100 09/05/17 06:00 79 19 120/60 (80) 98 09/05/17 06:00 72 09/05/17 05:40 76 15 125/59 (81) 97 09/05/17 05:20 78 16 123/61 (81) 97 09/05/17 05:01 82 32 125/62 (83) 97 09/05/17 05:00 81 19 97 09/05/17 04:42 86 21 150/65 (93) 97 09/05/17 04:20 84 20 127/64 (85) 98 09/05/17 04:01 81 27 116/49 (71) 98 09/05/17 04:00 98.4 82 24 97 09/05/17 03:40 84 23 140/64 (89) 99 18 03:20 88 29 139/68 (91) 98 09/05/17 03:01 102 42 128/91 (103) 97 09/05/17 03:00 100 41 97 09/05/17 03:00 100 41 128/91 (103) 97 09/05/17 02:00 83 09/05/17 02:00 86 34 124/58 (80) 97 09/05/17 01:00 81 26 150/69 (96) 96 09/05/17 00:00 98.4 84 27 119/54 (75) 95 09/05/17 00:00 84 6 23:00 84 24 135/64 (87) 94 18 22:00 81 09/04/17 22:00 81 23 134/64 (87) 95 09/04/18 21:40 80 19 133/69 (90) 96 09/04/17 21:20 81 21 120/62 (81) 95 09/04/17 21:00 83 32 134/64 (87) 95 09/04/17 21:00 97 09/04/17 20:40 86 30 136/65 (88) 96 18 20:21 92 29 119/59 (79) 97 18 20:00 87 09/04/17 20:00 98.0 87 33 134/60 (84) 96 18 19:40 84 21 131/65 (87) 96 09/04/18 19:20 81 23 117/57 (77) 97 18 19:01 83 19 130/57 (81) 98 18 19:00 84 20 98 09/04/18 18:00 87 18 17:00 85 18 16:35 98.0 78 20 124/69 (87) 95 Nasal Cannula 2 09/04/17 16:19 98.0 78 20 116/62 (80) 95 Nasal Cannula 2 18 15:50 98.0 85 16 113/55 (74) 98 18 15:30 98.0 85 16 113/55 (74) 98 09/04/18 15:00 81 618 14:00 81 18 13:00 88 09/04/17 12:00 75 09/04/17 11:00 84 09/04/17 10:00 79 09/04/17 09:00 86 I/O 09/04/17 09/04/17 09/04/17 09/05/17 09/05/17 09/05/17 07:00 15:00 23:00 07:00 15:00 23:00 Intake Total 1671 ml 50 ml 890 ml Output Total 500 ml 1600 ml 1000 ml Balance 1171 ml -1550 ml -110 ml Intake Oral 750 ml IV Total 391 ml 140 ml Packed Cells 1200 ml Blood Product IV Normal Saline Flush 80 ml Other 50 ml Output Urine Total 500 ml 1600 ml 1000 ml # Bowel Movements 0 0 Physical Exam GENERAL: Well developed, well nourished. No acute distress. HEENT: Jugular venous pressure is normal. CHEST: Lungs clear to auscultation bilaterally. Unlabored respiratory effort. CARDIAC: Regular rate and rhythm without S3, S4. II/ OMID base. Diminished S2. ABDOMEN: Soft, nontender, no hepatosplenomegaly. Bowel sounds present. EXTREMITIES: No clubbing, cyanosis, or edema. Laboratory Laboratory Tests Test 09/04/17 12:08 09/04/17 19:42 09/05/17 04:34 White Blood Count 13.2 TH/MM3 Red Blood Count 3.18 MIL/MM3 Hemoglobin 8.4 GM/DL Hematocrit 25.8 % Mean Corpuscular Volume 81.1 FL Mean Corpuscular Hemoglobin 26.4 PG Mean Corpuscular Hemoglobin Concent 32.6 % Red Cell Distribution Width 18.4 % Platelet Count 237 TH/MM3 Mean Platelet Volume 9.1 FL Neutrophils (%) (Auto) 82.7 % Lymphocytes (%) (Auto) 7.2 % Monocytes (%) (Auto) 8.7 % Eosinophils (%) (Auto) 0.8 % Basophils (%) (Auto) 0.6 % Neutrophils # (Auto) 10.9 TH/MM3 Lymphocytes # (Auto) 0.9 TH/MM3 Monocytes # (Auto) 1.2 TH/MM3 Eosinophils # (Auto) 0.1 TH/MM3 Basophils # (Auto) 0.1 TH/MM3 CBC Comment DIFF FINAL Differential Comment Prothrombin Time 10.2 SEC Prothromb Time International Ratio 1.0 RATIO Activated Partial Thromboplast Time 22.6 SEC Blood Urea Nitrogen 72 MG/DL 66 MG/DL Creatinine 4.77 MG/DL 4.46 MG/DL Random Glucose 96 MG/DL 97 MG/DL Total Protein 6.1 GM/DL Albumin 3.2 GM/DL 3.0 GM/DL Calcium Level 8.9 MG/DL 8.7 MG/DL Phosphorus Level 5.6 MG/DL 4.4 MG/DL Magnesium Level 3.0 MG/DL Alkaline Phosphatase 61 U/L Aspartate Amino Transf (AST/SGOT) 80 U/L Alanine Aminotransferase (ALT/SGPT) 28 U/L Total Bilirubin 0.8 MG/DL Sodium Level 143 MEQ/L 143 MEQ/L Potassium Level 3.9 MEQ/L 3.9 MEQ/L Chloride Level 110 MEQ/L 110 MEQ/L Carbon Dioxide Level 19.0 MEQ/L 20.7 MEQ/L Anion Gap 14 MEQ/L 12 MEQ/L Estimat Glomerular Filtration Rate 12 ML/MIN 13 ML/MIN Troponin I 26.10 NG/ML 28.00 NG/ML 25-Hydroxy Vitamin D Total 37.2 ng/ML Parathyroid Hormone (Intact) 62.9 PG/ML Assessment and Plan Problem List: (1) Non-ST elevation SC (NSTEMI) ICD Codes: I21.4 - Non-ST elevation SC (NSTEMI) Status: Acute Plan: No further angina. Last troponin up to 28.00. Suspect patient has underlying severe CAD on top of severe . REC cath only when dialysis and GI clearance for administration of antiplatelet/ anticoagulation medications needed for possible stenting; treat medically in meantime Dr. Hernandez to see PRN over the weekend (2) Paroxysmal atrial fibrillation ICD Codes: I48.0 - Paroxysmal atrial fibrillation Status: Acute Plan: Remains in NSR. Tolerating oral Amiodarone so far. Continue same. Discharge dose should be 200 mg qd. (3) Aortic stenosis ICD Codes: I35.0 - Nonrheumatic aortic (valve) stenosis Status: Chronic Plan: Severe aortic stenosis by exam and recent echo with mean gradient > 50 mm Hg. Recommend cath, TAVR when anemia, renal failure issues resolved Code Status full code Discussed Condition With patient Problem Qualifiers (1) Aortic stenosis: Qualified Codes: I35.0 - Nonrheumatic aortic (valve) stenosis Pepe Anderson MD Sep 05, 2017 08:27
[2017-09-05] MEDS: ASPIRIN EC 81 MG TABEC PO SCH (08:56)
[2017-09-05] MEDS: AMIODARONE 200 MG TAB PO SCH ×2 (08:56→20:43)
[2017-09-05] MEDS: METOPROLOL SUCCINATE 50 MG EXTENDED RELEASE TAB PO SCH (08:56)
[2017-09-05] MEDS: CHOLECALCIFEROL (VIT D3) 1000 UNIT TAB PO SCH (08:56)
[2017-09-05] MEDS: HEPARIN-D5W 25,000 U/250 ML 250 ML IV PRN ×2 (08:56→09:24)
[2017-09-05] MEDS: SODIUM CHLORIDE 0.9% FLUSH 10 ML FLUSH IV FLUSH SCH ×2 (08:56→20:43)
[2017-09-05] MEDS: DOCUSATE SODIUM 50 MG/SENNA 8.6 MG TAB PO SCH ×2 (08:58→20:42)
[2017-09-05] MEDS ORDERED: SODIUM CHLOR 0.9% 1000 ML INJ 1,000 ML OTHER PRN ×2 (10:20)
[2017-09-05] MEDS ORDERED: SODIUM CHLOR 0.9% 1000 ML INJ 1,000 ML IV PRN (10:20)
--- NOTE | 2017-09-05 10:27 | HHI.NPPN ---
Subjective History of Present Illness 72-year-old white male with history of hypertension, chronic kidney disease approaching ESRD who developed chest pain and shortness of breath Interval History Troponin are positive for RI Objective Data Data Vital Signs Date Time Temp Pulse Resp B/P (MAP) Pulse Ox O2 Delivery O2 Flow Rate FiO2 09/05/17 07:53 100 09/05/17 06:00 79 19 120/60 (80) 98 09/05/17 06:00 72 09/05/17 05:40 76 15 125/59 (81) 97 09/05/17 05:20 78 16 123/61 (81) 97 09/05/17 05:01 82 32 125/62 (83) 97 09/05/17 05:00 81 19 97 09/05/17 04:42 86 21 150/65 (93) 97 09/05/17 04:20 84 20 127/64 (85) 98 09/05/17 04:01 81 27 116/49 (71) 98 09/05/17 04:00 98.4 82 24 97 09/05/17 03:40 84 23 140/64 (89) 99 09/05/17 03:20 88 29 139/68 (91) 98 09/05/17 03:01 102 42 128/91 (103) 97 09/05/17 03:00 100 41 97 09/05/17 03:00 100 41 128/91 (103) 97 09/05/17 02:00 83 09/05/17 02:00 86 34 124/58 (80) 97 09/05/17 01:00 81 26 150/69 (96) 96 09/05/17 00:00 98.4 84 27 119/54 (75) 95 09/05/17 00:00 84 09/04/17 23:00 84 24 135/64 (87) 94 09/04/17 22:00 81 09/04/17 22:00 81 23 134/64 (87) 95 18 21:40 80 19 133/69 (90) 96 09/04/17 21:20 81 21 120/62 (81) 95 09/04/17 21:00 83 32 134/64 (87) 95 09/04/17 21:00 97 09/04/17 20:40 86 30 136/65 (88) 96 09/04/17 20:21 92 29 119/59 (79) 97 09/04/17 20:00 87 09/04/17 20:00 98.0 87 33 134/60 (84) 96 09/04/17 19:40 84 21 131/65 (87) 96 09/04/17 19:20 81 23 117/57 (77) 97 09/04/17 19:01 83 19 130/57 (81) 98 09/04/17 19:00 84 20 98 09/04/17 18:00 87 09/04/17 17:00 85 09/04/17 16:35 98.0 78 20 124/69 (87) 95 Nasal Cannula 2 09/04/17 16:19 98.0 78 20 116/62 (80) 95 Nasal Cannula 2 09/04/17 15:50 98.0 85 16 113/55 (74) 98 09/04/17 15:30 98.0 85 16 113/55 (74) 98 09/04/17 15:00 81 09/04/17 14:00 81 09/04/17 13:00 88 09/04/17 12:00 75 09/04/17 11:00 84 -: 09/04/17 1208 09/05/17 0434 Physical Exam General Appearance: Well Developed, Well Nourished Pulmonary Resp Exam: Crackles, Decreased Bases Cardiology CV Exam: Regular, Normal Sinus Rhythm, Murmur Gastrointestinal/Abdomen GI Exam: Soft, Non-Tender, Bowel Sounds Present Extremeties Extremities Exam: Trace Edema Neurologic Neuro Exam: Alert, Awake, Oriented Assessment/Plan Problem List: (1) Acute renal failure ICD Codes: N17.9 - Acute kidney failure, unspecified Plan: Patient has advanced renal failure spoke to RN Dr. Bob office postponed placement of Tenckhoff catheter due to RI I will have to proceed with hemodialysis and patient agreed, he was told he will need a full in the chest area Hemodialysis ordered he may at some point needs heart catheterization Explained this to the patient Continue supportive care (2) CKD (chronic kidney disease) stage 4, GFR 15-29 ml/min ICD Codes: N18.4 - Chronic kidney disease, stage 4 (severe) Plan: Patient may have progress to stage V (3) GI bleed ICD Codes: K92.2 - Gastrointestinal hemorrhage, unspecified Status: Acute Plan: Endoscopy plan (4) Anemia ICD Codes: D64.9 - Anemia Status: Acute Plan: Status post blood transfusion (5) ACS (acute coronary syndrome) ICD Codes: I24.9 - Acute ischemic heart disease, unspecified Status: Acute Plan: Cardiology following AMI (6) Hypertension ICD Codes: I10 - Essential (primary) hypertension Plan: Continue to monitor Gaurav Shah MD Sep 05, 2017 10:27
[2017-09-05] MEDS ORDERED: NITROGLYCERIN 0.4 MG SL 25 TABS/BTL SL PRN (10:30)
[2017-09-05] MEDS ORDERED: diphenhydrAMINE HCL 25 MG CAP PO PRN (10:30)
[2017-09-05] MEDS ORDERED: ONDANSETRON HCL 4 MG/2 ML VIAL IV PUSH PRN (10:30)
[2017-09-05] MEDS ORDERED: GELATIN 12 MM/7 MM FOAM TOP PRN (10:30)
[2017-09-05] MEDS ORDERED: MANNITOL 12.5 GM/50 ML VIAL IV PRN (10:30)
[2017-09-05] MEDS ORDERED: cloNIDine HCL 0.1 MG TAB PO PRN (10:30)
[2017-09-05] MEDS ORDERED: SODIUM CHLORIDE 0.9% FLUSH 10 ML FLUSH IV FLUSH PRN ×2 (10:30→14:15)
[2017-09-05] MEDS ORDERED: HEPARIN SODIUM - IV 10,000 UNITS/10 ML VIAL IV FLUSH PRN (10:30)
[2017-09-05] MEDS ORDERED: ACETAMINOPHEN 325 MG TAB PO PRN (10:30)
--- NOTE | 2017-09-05 12:28 | HHI.CCPN ---
Subjective Remarks/Hospital Course 72 year male presents to the emergency department from home by EMS transport for evaluation of retrosternal chest pain. No reported associated shortness of breath sweats nausea vomiting referred neck jaw back shoulder arm pain. Patient denies any abdominal pain. Patient has history of known coronary vessel disease myocardial infarction, angina pectoris as well as stage IV chronic kidney disease. Patient also has history of aortic insufficiency aortic stenosis COPD dyslipidemia hypertensive heart disease mitral regurgitation morbid obesity obstructive sleep apnea. Patient states he frequently has episodes of similar type of chest pain that is minutes indurations however this is been present since 8:30 PM and unremitting. Patient was noted to be hypotensive upon EMS arrival with a systolic blood pressure of 90 mmHg. Patient was given aspirin and a 500 cc bolus of normal saline. Patient also suffers from chronic anemia due to his CKD. Patient was seen as recently as March 2017 for a cardiac catheterization which was canceled secondary to his creatinine being 2.7 at the time with a GFR of 16 it was determined that the contrast would cause him to have further renal failure deterioration and require hemodialysis. Patient was also seen by cardiothoracic surgery and indicated that to evaluate him for a transcatheter aortic valve replacement he would need to undergo cardiac catheterization however as it was an elective catheterization of the time the study was canceled. Patient has had low hemoglobin in the past requiring blood transfusion. Patient does not take any iron supplements. Patient is currently on no blood thinning agents. Patient has not noticed any epistaxis, bleeding hemoptysis hematemesis coffee-ground emesis melena or hematochezia. Patient denies increased bruising. Patient failed Epogen therapy. Patient is able to identify exacerbating or alleviating factors. Patient also reports that he was recently started on Lasix as a new medication within the past 3 weeks. Patient has not noticed any lower extremity swelling. Patient has not noticed any new dyspnea on exertion or orthopnea. Patient was noted to have ischemic changes on his EKG. Dr. Damian from cardiology was contacted and starting heparin, aspirin. Patient's hemoglobin came back 5.5 and 2 units PRBCs were ordered. Patient was accepted for admission by critical care medicine service. When I evaluated the patient in the ER he was sitting up in the ER stretcher while receiving his first unit of PRBCs. He rated his chest pain at 2 out of 10 in intensity along with jaw pain. He stated this was not significantly better than when he came in. Off note rectal exam done by ER physician revealed black stool which was Hemoccult positive. Subjective: 09/05 Patient denies chest pain or SOB. Plan for initiation of HD and then cardiac workup. EGD yesterday showed gastritis. Transfused 3 units PRBC yesterday and repeat Hgb was 8.4 CBC today is pending. Objective Vital Signs Date Time Temp Pulse Resp B/P (MAP) Pulse Ox O2 Delivery O2 Flow Rate FiO2 09/05/17 07:53 100 09/05/17 06:00 79 19 120/60 (80) 09/05/17 04:00 98.4 09/04/17 16:35 Nasal Cannula 2 Intake and Output 09/05/17 09/05/17 09/06/17 08:00 16:00 00:00 Intake Total 890 ml Output Total 1000 ml Balance -110 ml Result Diagram: 09/04/17 1208 09/05/17 0434 Imaging Last Impressions Chest X-Ray 09/03/17 0000 Signed Impressions: CONCLUSION: Negative examination. Objective Remarks GENERAL: Well-developed obese male sitting up in bedside chair. SKIN: Warm and dry, well perfused. HEAD: Normocephalic. EYES: Pallor present. No scleral icterus. No injection or drainage. NECK: Supple, trachea midline. No JVD or lymphadenopathy. CARDIOVASCULAR: Regular rate and rhythm 4/6 systolic murmur heard throughout precordium. RESPIRATORY: Breath sounds equal bilaterally. No accessory muscle use. GASTROINTESTINAL: Abdomen soft, non-tender, nondistended. MUSCULOSKELETAL: No cyanosis, or edema. Ecchymosis distal aspect of humerus and proximal forearm, compartments soft, palpable pulses NEURO: Awake, alert, oriented x3. Moves all extremities with no focal deficit. A/P Assessment and Plan 72-year-old male with: Plan: Neuro: Daily EtOH use pain medications as needed. Thiamine/MVI/folic acid Cardiovascular: Angina Paroxysmal atrial fibrillation, now in sinus rhythm Coronary artery disease Severe aortic stenosis NSTEMI Hyperlipidemia HTN Norvasc 10 mg p.o. daily, metoprolol succinate 50 mg p.o. daily, aspirin 81 mg p.o. daily Amiodarone 400 mg p.o. every 12 hours (discharge dose will be 200 mg daily) Cardiology following, Dr. Anderson. Plan for further workup after dialysis start. . Avoid nitrates and BALTAZAR inhibitors due to severe aortic stenosis. Heparin drip off per Dr. Geronimo d/w cardiology Echo pending. Pulmonary: COPD MADAN Supplemental O2, bronchodilators as needed. GI/liver: Heme + stools Gastritis EGD 09/04 - gastritis, pathology pending Renal/: ESRD Followed by Dr. Shah from nephrology. Vascath placement by IR and initiate HD today Eventual plan for PD however Tenckhoff catheter placement deferred until stabilized from cardiac standpoint. ID: No indication for antibiotics at this time. Heme: Acute on chronic anemia Transfuse to keep hemoglobin greater than 8 g percent. Transfuse 1 unit PRBC now. Check anemia labs. Endocrine: Watch for hyperglycemia, SSI for glycemic control if needed. Prophylaxis: Protonix/ SCDs, ACCESS: PIV. Vascath placement by IR 09/05. Level 3 followup Rissa Koch MD Sep 05, 2017 12:28
--- NOTE | 2017-09-05 12:54 | HHI.GIFU ---
Subjective Remarks Patient is sitting up in chair Respiratory volumes short choppy, mild dyspnea noted at rest, history of COPD and long-term tobacco use Denies any dyspepsia no current nausea or vomiting (Zabrina Aceves) Objective Vitals I&O Vital Signs Date Time Temp Pulse Resp B/P (MAP) Pulse Ox O2 Delivery O2 Flow Rate FiO2 09/05/17 07:53 100 09/05/17 06:00 79 19 120/60 (80) 98 09/05/17 06:00 72 09/05/17 05:40 76 15 125/59 (81) 97 09/05/17 05:20 78 16 123/61 (81) 97 09/05/17 05:01 82 32 125/62 (83) 97 09/05/17 05:00 81 19 97 09/05/17 04:42 86 21 150/65 (93) 97 09/05/17 04:20 84 20 127/64 (85) 98 09/05/17 04:01 81 27 116/49 (71) 98 09/05/17 04:00 98.4 82 24 97 09/05/17 03:40 84 23 140/64 (89) 99 09/05/17 03:20 88 29 139/68 (91) 98 09/05/17 03:01 102 42 128/91 (103) 97 09/05/17 03:00 100 41 97 09/05/17 03:00 100 41 128/91 (103) 97 09/05/17 02:00 83 09/05/17 02:00 86 34 124/58 (80) 97 09/05/17 01:00 81 26 150/69 (96) 96 09/05/17 00:00 98.4 84 27 119/54 (75) 95 09/05/17 00:00 84 09/04/17 23:00 84 24 135/64 (87) 94 09/04/17 22:00 81 09/04/17 22:00 81 23 134/64 (87) 95 09/04/17 21:40 80 19 133/69 (90) 96 09/04/17 21:20 81 21 120/62 (81) 95 09/04/17 21:00 83 32 134/64 (87) 95 09/04/17 21:00 97 09/04/17 20:40 86 30 136/65 (88) 96 09/04/17 20:21 92 29 119/59 (79) 97 09/04/17 20:00 87 09/04/17 20:00 98.0 87 33 134/60 (84) 96 09/04/17 19:40 84 21 131/65 (87) 96 09/04/17 19:20 81 23 117/57 (77) 97 09/04/17 19:01 83 19 130/57 (81) 98 09/04/17 19:00 84 20 98 09/04/17 18:00 87 09/04/17 17:00 85 09/04/17 16:35 98.0 78 20 124/69 (87) 95 Nasal Cannula 2 09/04/17 16:19 98.0 78 20 116/62 (80) 95 Nasal Cannula 2 09/04/17 15:50 98.0 85 16 113/55 (74) 98 09/04/17 15:30 98.0 85 16 113/55 (74) 98 09/04/17 15:00 81 09/04/17 14:00 81 09/04/17 13:00 88 I/O 09/04/17 09/04/17 09/04/17 09/05/17 09/05/17 09/05/17 07:00 15:00 23:00 07:00 15:00 23:00 Intake Total 1671 ml 50 ml 890 ml Output Total 500 ml 1600 ml 1000 ml Balance 1171 ml -1550 ml -110 ml Intake Oral 750 ml IV Total 391 ml 140 ml Packed Cells 1200 ml Blood Product IV Normal Saline Flush 80 ml Other 50 ml Output Urine Total 500 ml 1600 ml 1000 ml # Bowel Movements 0 0 Laboratory Laboratory Tests Test 09/04/17 19:42 09/05/17 04:34 09/05/17 11:20 Troponin I 28.00 Blood Urea Nitrogen 66 Creatinine 4.46 Random Glucose 97 Albumin 3.0 Calcium Level 8.7 Phosphorus Level 4.4 Sodium Level 143 Potassium Level 3.9 Chloride Level 110 Carbon Dioxide Level 20.7 Anion Gap 12 Estimat Glomerular Filtration Rate 13 25-Hydroxy Vitamin D Total 37.2 Parathyroid Hormone (Intact) 62.9 Hepatitis B Surface Antigen NONREACTIVE Imaging Last Impressions Chest X-Ray 09/04/17 0600 Signed Impressions: CONCLUSION: Cardiomegaly with minimal basilar atelectasis. No significant change from September 03. Physical Exam HEENT: Overweight, normocephalic; atraumatic; pale , speech understandable NECK: Neck is supple, short CHEST: Diminished breath sounds, low volumes, mild dyspnea at rest CARDIAC: Regular rate and rhythm ABDOMEN: Round, taut, mild distention, nontender to light palpation; bowel sounds are present in all four quadrants. EXTREMITIES: Mild lower extremity edema. SKIN: Pale, no rash SERVICE STATION CONSOLE OPERATOR: Answers questions appropriately, mild anxiety (Zabrina Aceves) Assessment and Plan Plan Assessment: - Anemia- long history of anemia- has previously required multiple blood transfusions, has been told the anemia is secondary to CKD, previously on Procrit with no improvement. Last EGD and colonoscopy in 2013 --> Very poor prep, diverticulosis, hemorrhoids, and gastritis. H/H currently 5.5/17.6 receiving 3 U PRBCs per CCM Per ER notes, rectal exam revealed black stool that was Hemoccult positive. Pt denies NSAIDs. Drinks 1-2 liquor drinks a day. Smokes 1 PPD. - Positive troponin secondary to severe anemia- pt was placed on Heparin gtt- discussed with Dr. Anderson, casing worker on the phone, states [place] to [place] Heparin - CKD- per attending Discussed with Dr Anderson, cardiologists, [facility] to proceed with EGD and discontinue Heparin gtt. Discussed with Dr. Bear. Discussed with THIERRY Wallace. Heparin gtt to be discontinued now, continue Protonix gtt, EGD after 4 pm today. 09/05/2017, EGD findings esophagus appeared normal, gastritis in the antrum, multiple biopsies taken, normal duodenal mucosa Patient is currently up in the chair denies any symptoms of nausea vomiting or dyspepsia. Current hemoglobin 8.4, platelet count 237, WBC count mild leukocytosis 13.2, AST 80 on 09/04/2017 but normal ALT and normal bilirubin. This could be related to patient's alcohol consumption versus fatty liver. Patient does admit to 1-2 drinks a day and is a pack-a-day smoker for many years. Denies any family history of colon cancer,currently being managed on the pantoprazole. Plan: Diet heart healthy Anti-medics Biopsies pending, will need to follow up in GI office once patient is discharged from the hospital Monitor H/H and other labs , transfuse as necessary Alcohol abstinence Protonix gtt, will transition to p.o. Protonix and maintain Further recommendations based on findings of above Pt has been seen per myself myself and Dr. Baez and this note is written on his behalf (Zabrina Aceves) Physician Comments Agree with above plan , will sign off for now, please notify us if needed again. (Chris Baez MD) Zabrina Aceves Sep 05, 2017 12:54 Chris Baez MD Sep 06, 2017 11:52
--- NOTE | 2017-09-05 14:13 | PD.RAD ---
Post Procedure Progress Note Pre Procedure Diagnosis: (1) End stage renal disease Post Procedure Diagnosis: (1) End stage renal disease Procedure Date: Sep 05, 2017 Supervising Radiologist: Juan Miguel Vides JR Proceduralist/Assist: Odalis Anderson, RT(R)(CV), Lisa Ortez RT(R) Anesthesia: Local Plan of Activity Patient to Unit: Nursing Unit Patient Condition: Good See PACS Report for procedural detail/treatment Central Venous Access Device Procedure 1 Right Internal Jugular Hemodialysis Catheter Non-Tunneled Placement dual lumen Lao: 14 Findings: Pt on ASA. Placed RIJ Vascath. Functions well and is in good position. OK to use. Plan ASA is 5 day hold for Permcath placement. Can convert this Vascath to Permcath at the appropriate time. Jr Peewee.,Juan Miguel Valentino MD Sep 05, 2017 14:13
[2017-09-05] MEDS ORDERED: HEPARIN SODIUM - IV 2,000 UNITS/2 ML VIAL IV FLUSH PRN (14:15)
--- NOTE | 2017-09-05 14:37 | PD.CONS ---
cc: Charli Pozo MD [facility] Service CONSULTATION NOTE FOR SURGICAL ATTENDING, DR. CHARLI POZO General Surgery Consult Requested By Dr. Shah Reason for Consult Evaluation of PD catheter Primary Care Physician Non-Staff History of Present Illness This is a 72 year old male with a past medical history of coronary vessel disease, myocardial infarction, stage 4 kidney disease, aortic insufficiency, aortic stenosis, COPD, dyslipidemia, hypertension, mitral regurgitation, obstructive sleep apnea and anemia. The patient came to the ED on Friday with complaints of retrosternal chest pain and shortness of breath. He was found to be anemic and was transfused. His renal function has increased and now in need of hemodialysis. Cardiology would like to do cardiac catheterization, TARV but renal function too high. The patient did have an EGD yesterday which showed gastritis. His hemoglobin today is 8.4. His troponin has been elevated, the highest being 28. A General Surgery consultation has been requested for evaluation of peritoneal dialysis catheter placement. Review of Systems Constitutional: DENIES: Fatigue, Dizziness, Change in appetite Endocrine: DENIES: Polydipsia, Polyuria, Polyphagia Eyes: DENIES: Diplopia, Eye inflammation Ears, nose, mouth, throat: DENIES: Hearing loss Respiratory: DENIES: Cough Cardiovascular: COMPLAINS OF: Chest pain, Dyspnea on Exertion Gastrointestinal: DENIES: Abdominal pain, Nausea, Vomiting Genitourinary: DENIES: Urinary frequency Musculoskeletal: DENIES: Joint pain Integumentary: DENIES: Abnormal pigmentation Hematologic/lymphatic: DENIES: Bruising Immunologic/allergic: DENIES: Eczema Neurologic: DENIES: Abnormal gait, Headache, Localized weakness Psychiatric: DENIES: Confusion, Mood changes, Depression Past Family Social History Past Medical History Coronary vessel disease HI Angina Stage 4 kidney disease Aortic insufficiency Aortic stenosis COPD Dyslipidemia Hypertension Mitral regurgitation Obstructive sleep apnea Anemia Past Surgical History Open appendectomy as a teenager Tonsillectomy Reported Medications See chart; list is extensive; no chronic oral anticoagulation Allergies: Coded Allergies: No Known Allergies (Verified Adverse Reaction, Unknown, 09/03/17) Active Ordered Medications Current Medications Medications (Trade) Dose Ordered Sig/Marylou Route Start Time Stop Time Status Last Admin Heparin Sodium/ Dextrose 250 ml @ 10.417 mls/ hr TITRATE PRN IV 09/03/17 23:30 Future Hold 09/03/17 23:56 Sodium Chloride 1,000 ml @ 30 mls/hr Q24H IV 09/03/17 23:21 (NS Flush) 2 ml UNSCH PRN IV FLUSH 09/03/17 23:30 (NS Flush) 2 ml BID IV FLUSH 09/04/17 09:00 09/05/17 08:56 (Tylenol) 650 mg Q6H PRN PO 09/03/17 23:30 (Morphine Inj) 2 mg Q2H PRN IV PUSH 09/03/17 23:30 (Zofran Odt) 4 mg Q6H PRN PO 09/03/17 23:30 (Duoneb Neb) 1 ampule Q2HR NEB PRN INH 09/03/17 23:30 09/04/17 12:14 ([facility] Nursing Information) 1 Q361D XX 09/03/17 23:30 09/03/17 23:30 (Chlorhexidine 2% Cloth) 3 pack Taper DAILY@04 TOP 09/04/17 04:00 08/31/18 03:59 09/05/17 01:51 (Chlorhexidine 2% Cloth) 3 pack UNSCH PRN TOP 09/03/17 23:30 (Sylvie-Colace) 1 tab BID PO 09/04/17 09:00 (Milk Of Magnesia Liq) 30 ml Q12H PRN PO 09/03/17 23:30 (Senokot) 17.2 mg Q12H PRN PO 09/03/17 23:30 (Dulcolax Supp) 10 mg DAILY PRN RECTAL 09/03/17 23:30 (Lactulose Liq) 30 ml DAILY PRN PO 09/03/17 23:30 (Norvasc) 10 mg DAILY PO 09/04/17 09:00 09/05/17 08:56 (Lipitor) 80 mg HS PO 09/04/17 21:00 09/04/17 20:42 (Vitamin D3) 1,000 units DAILY PO 09/04/17 09:00 09/05/17 08:56 (Toprol Xl) 50 mg DAILY PO 09/04/17 09:00 09/05/17 08:56 (Ecotrin Ec) 81 mg DAILY PO 09/04/17 09:00 09/05/17 08:56 (Cordarone) 400 mg Q12HR PO 09/04/17 09:00 09/05/17 08:56 ([facility] Nursing Information) ALL NURSING DEPARTME... UNSCH PRN .XX 09/04/17 16:00 09/05/17 15:59 Sodium Chloride 1,000 ml @ 0 mls/hr Q0M PRN OTHER 09/05/17 10:20 (Heparin Inj) 8,000 units UNSCH PRN IV FLUSH 09/05/17 10:30 Sodium Chloride 1,000 ml @ 200 mls/hr Q5H PRN IV 09/05/17 10:20 Sodium Chloride 1,000 ml @ 0 mls/hr Q0M PRN OTHER 09/05/17 10:20 (Mannitol Inj) 12.5 gm UNSCH PRN IV 09/05/17 10:30 Albumin Human 100 ml @ 60 mls/hr UNSCH PRN IV 09/05/17 10:30 (NS Flush) 5 ml UNSCH PRN IV FLUSH 09/05/17 10:30 (Heparin Inj) UNSCH PRN .XX 09/05/17 10:30 (Gentamicin Inj) 20 mg UNSCH PRN OTHER 09/05/17 10:30 (Zofran Inj) 4 mg UNSCH PRN IV PUSH 09/05/17 10:30 (Tylenol) 650 mg UNSCH PRN PO 09/05/17 10:30 (Benadryl) 25 mg UNSCH PRN PO 09/05/17 10:30 (Nitrostat Sl) 0.4 mg UNSCH PRN SL 09/05/17 10:30 (Catapres) 0.1 mg UNSCH PRN PO 09/05/17 10:30 (Gelfoam 12 Mm/7 Mm Top) 1 foam UNSCH PRN TOP 09/05/17 10:30 (Protonix) 40 mg DAILY PO 09/06/17 09:00 (NS Flush) UNSCH PRN IV FLUSH 09/05/17 14:15 (Heparin Inj) UNSCH PRN IV FLUSH 09/05/17 14:15 Family History Noncontributory Social History + tobacco use--- 1 ppd + ETOH use 1-2 drinks daily; wine/liquor Denies illicit drug use Physical Exam Vital Signs Vital Signs Date Time Temp Pulse Resp B/P (MAP) Pulse Ox O2 Delivery O2 Flow Rate FiO2 09/05/17 07:53 100 09/05/17 06:00 79 19 120/60 (80) 98 09/05/17 06:00 72 09/05/17 05:40 76 15 125/59 (81) 97 09/05/17 05:20 78 16 123/61 (81) 97 09/05/17 05:01 82 32 125/62 (83) 97 09/05/17 05:00 81 19 97 09/05/17 04:42 86 21 150/65 (93) 97 09/05/17 04:20 84 20 127/64 (85) 98 09/05/17 04:01 81 27 116/49 (71) 98 09/05/17 04:00 98.4 82 24 97 09/05/17 03:40 84 23 140/64 (89) 99 09/05/17 03:20 88 29 139/68 (91) 98 09/05/17 03:01 102 42 128/91 (103) 97 09/05/17 03:00 100 41 97 09/05/17 03:00 100 41 128/91 (103) 97 09/05/17 02:00 83 09/05/17 02:00 86 34 124/58 (80) 97 09/05/17 01:00 81 26 150/69 (96) 96 09/05/17 00:00 98.4 84 27 119/54 (75) 95 09/05/17 00:00 84 09/04/17 23:00 84 24 135/64 (87) 94 09/04/17 22:00 81 09/04/17 22:00 81 23 134/64 (87) 95 18 21:40 80 19 133/69 (90) 96 09/04/17 21:20 81 21 120/62 (81) 95 09/04/17 21:00 83 32 134/64 (87) 95 09/04/17 21:00 97 09/04/17 20:40 86 30 136/65 (88) 96 09/04/17 20:21 92 29 119/59 (79) 97 09/04/17 20:00 87 09/04/17 20:00 98.0 87 33 134/60 (84) 96 09/04/17 19:40 84 21 131/65 (87) 96 09/04/17 19:20 81 23 117/57 (77) 97 18 19:01 83 19 130/57 (81) 98 09/04/17 19:00 84 20 98 09/04/17 18:00 87 09/04/17 17:00 85 09/04/17 16:35 98.0 78 20 124/69 (87) 95 Nasal Cannula 2 09/04/17 16:19 98.0 78 20 116/62 (80) 95 Nasal Cannula 2 18 15:50 98.0 85 16 113/55 (74) 98 6/18 15:30 98.0 85 16 113/55 (74) 98 6//18 15:00 81 Physical Exam GENERAL: Very pleasant 72 year old male resting in bed in no acute distress. SKIN: Warm and dry. HEAD: Atraumatic. Normocephalic. EYES: Pupils equal and round. No scleral icterus. No injection or drainage. ENT: No nasal bleeding or discharge. Mucous membranes pink and moist. NECK: Trachea midline. CARDIOVASCULAR: Regular rate and rhythm. + Murmur. RESPIRATORY: No accessory muscle use. Clear to auscultation. Breath sounds equal bilaterally. GASTROINTESTINAL: Abdomen soft, non-tender, nondistended. No visible scars or hernias. MUSCULOSKELETAL: Extremities without clubbing, cyanosis, or edema. No obvious deformities. NEUROLOGICAL: Awake and alert. No obvious cranial nerve deficits. Motor grossly within normal limits. Five out of 5 muscle strength in the arms and legs. Normal speech. PSYCHIATRIC: Appropriate mood and affect; insight and judgment normal. Laboratory Laboratory Tests Test 09/04/17 19:42 09/05/17 04:34 09/05/17 11:20 Troponin I 28.00 Blood Urea Nitrogen 66 Creatinine 4.46 Random Glucose 97 Albumin 3.0 Calcium Level 8.7 Phosphorus Level 4.4 Sodium Level 143 Potassium Level 3.9 Chloride Level 110 Carbon Dioxide Level 20.7 Anion Gap 12 Estimat Glomerular Filtration Rate 13 25-Hydroxy Vitamin D Total 37.2 Parathyroid Hormone (Intact) 62.9 Hepatitis A IgM Antibody NONREACTIVE Hepatitis B Surface Antigen NONREACTIVE Hepatitis B Core IgM Antibody NONREACTIVE Hepatitis C IgG Antibody NONREACTIVE Result Diagram: 09/04/17 1208 09/05/17 0434 Assessment and Plan Problem List: (1) Elevated troponin I level ICD Codes: R79.89 - Elevated troponin I level Status: Acute (2) Elevated brain natriuretic peptide (BNP) level ICD Codes: R79.9 - Elevated brain natriuretic peptide (BNP) level Status: Acute (3) Normocytic normochromic anemia ICD Codes: D64.9 - Normocytic normochromic anemia Status: Acute (4) Coronary artery disease ICD Codes: I25.10 - Atherosclerotic heart disease of [place] coronary artery without angina pectoris Status: Chronic (5) ACS (acute coronary syndrome) ICD Codes: I24.9 - Acute ischemic heart disease, unspecified Status: Acute (6) Anemia ICD Codes: D64.9 - Anemia Status: Acute (7) GI bleed ICD Codes: K92.2 - Gastrointestinal hemorrhage, unspecified Status: Acute (8) Non-ST elevation HI (NSTEMI) ICD Codes: I21.4 - Non-ST elevation HI (NSTEMI) Status: Acute (9) Acute renal failure ICD Codes: N17.9 - Acute kidney failure, unspecified (10) Aortic stenosis ICD Codes: I35.0 - Nonrheumatic aortic (valve) stenosis Status: Chronic (11) Paroxysmal atrial fibrillation ICD Codes: I48.0 - Paroxysmal atrial fibrillation Status: Acute (12) End stage renal disease ICD Codes: N18.6 - End stage renal disease Status: Acute Assessment and Plan 72 year old male with HI; ACS; elevated troponin; Stage 4 kidney disease -Recommend temporary dialysis placement for now to start hemodialysis -Continue treating other medical problems including heart issues -This is not a safe time for patient to have general anesthesia for PD cath placement -Recommend complete recovery for this cardiac event and discussing PD cath placement likely on a more elective basis -Discussed with Dr. Shah at bedside -Thank you for this consult; General Surgery will see peripherally over the weekend Discussed Condition With Dr. Nohelia Ward Attending Statement CONSULTATION NOTE FOR SURGICAL ATTENDING, DR. CHARLI PZOO I agree with above assessment and plan. The exam, history, and the medical decision-making described in the above note were completed with the assistance of the mid-level provider. I reviewed and agree with the findings presented. I attest that I had a [id number] encounter with the patient on the same day, and personally performed and documented my assessment and findings in the medical record. The following services were provided during this hospital visit: Chart data review, vital sign assessments/reviewing monitor data Review of consultations notes if present. Medication orders/review and/or management Ordering and/or reviewing lab tests Ordering and/or interpreting/reviewing x-rays and/or diagnostic studies Care of the patient and discussion of the patient with the care team Documentation time To help prompt me to consider important information that might be impacting today's encounter and assessment, Information from prior notes written by myself or my colleagues may have been "brought forward/copy and pasted" into today's note. Problem Qualifiers (1) Aortic stenosis: Qualified Codes: I35.0 - Nonrheumatic aortic (valve) stenosis Jagruti Dawkins/Investigator FOREST NURSERY SUPERVISOR Sep 05, 2017 14:37 Charli Pozo MD Sep 06, 2017 12:06
--- NOTE | 2017-09-05 15:09 | RADRPT ---
EXAM DATE: 09/05/2017 2:30 PM EDT AGE/SEX: 72 years / Male INDICATIONS: Patient with history of chronic kidney disease in need of non tunneled dialysis cathete r placement. Patient on aspirin therapy and has eaten. CLINICAL DATA: This is the patient's initial encounter. Patient reports that signs and symptoms have been present for 2 days and indicates a pain score of 0/10. MEDICAL/SURGICAL HISTORY: Hypertension. Hypercholesterolemia. CAD.COPD.IA. Stage IV chronic ki dney disease. Angina. Non-STEMI. Aortic stenosis. Severe anemia. CHF Appendectomy. Tonsillectomy. COMPARISON: No prior exams available for comparison. FLUORO TIME (min): 0.2 IMAGE SERIES: 1 ACCESS SITE: Right internal jugular vein DEVICE(S): 14 Sami double lumen Schon catheter X15CM . . PROCEDURE : 1. Ultrasound guided venipuncture. 2. Fluoroscopic guidance. 3. Central line placement. The risks, benefits and alternatives to the procedure were explained and verbal and written consent w as obtained. The site was prepped in sterile fashion. Full sterile technique was used, including ca p, mask, sterile gloves and gown and a large sterile sheet. Hand hygiene and 2% chlorhexidine prep w as utilized per protocol for cutaneous antisepsis with appropriate dry time for site. Sterile gel an d sterile probe cover were utilized for ultrasound guidance. The skin and subcutaneous tissues were infiltrated with local anesthetic solution. A suitable site a carin the vein was selected with ultrasound and fluoroscopic guidance. A small incision was made. Th e vein was accessed under direct ultrasound visualization using the micropuncture technique. The prudence ropuncture set was exchanged for a 0.035 wire. The tract was dilated. The catheter was advanced int o position under direct fluoroscopic visualization, and was advanced with the tip at the junction of the superior vena cava and rt atrium. The catheter was fixed in place with suture and a sterile dres sing was applied. The patient tolerated the procedure well and there were no complications. CONCLUSION: 1. Uncomplicated line placement as above. Electronically signed by: Juan Miguel Vides MD 09/05/2017 3:08 PM EDT
[2017-09-05] MEDS: GENTAMICIN SULFATE 20 MG/2 ML VIAL OTHER PRN (15:10)
[2017-09-05] MEDS: HEPARIN SODIUM - IV 10,000 UNITS/10 ML VIAL PRN (15:10)
--- NOTE | 2017-09-05 15:46 | EKG ---
Date Performed: 09/04/2017 Time Performed: 09:16:28 PTAGE: 72 years EKG: Sinus rhythm . Inferior/lateral ST-T changes suggest myocardial injury/ischemia Abnormal ECG Compared to PREVIOUS TRACING , minor nonspecific ST-T wave changes seen inferiorly and anterolaterall y. PREVIOUS TRACIN09/03/2017 21.51 DOCTOR: Emi Roa Interpretating Date/Time 09/05/2017 15:46:15
--- NOTE | 2017-09-05 15:46 | EKG ---
Date Performed: 09/03/2017 Time Performed: 21:51:53 PTAGE: 72 years EKG: ATRIAL FIBRILLATION MARKED ST DEPRESSION, CONSIDER SUBENDOCARDIAL INJURY ABNORMAL ECG Comp ared to PREVIOUS TRACING , patient is now in atrial fibrillation with nonspecific ST-T wave ally gambino. PREVIOUS TRACIN04/04/2017 07.30 DOCTOR: Emi Roa Interpretating Date/Time 09/05/2017 15:44:42
[2017-09-05 16:24] LABS: HEMATOCRIT 24.8 % (39.0-51.0); HEMOGLOBIN 7.9 GM/DL (13.0-17.0); MEAN CELL VOLUME 81.3 FL (80.0-100.0); MEAN CORPUSCULAR HEMOGLOBIN 25.9 PG (27.0-34.0); MEAN CORPUSCULAR HGB CONC 31.9 % (32.0-36.0); PLATELET COUNT 227 TH/MM3 (150-450); RED BLOOD COUNT 3.05 MIL/MM3 (4.50-5.90); RED CELL DISTRIBUTION WIDTH 19.4 % (11.6-17.2); WHITE BLOOD COUNT 11.6 TH/MM3 (4.0-11.0)
[2017-09-05] MEDS: THIAMINE HCL 100 MG TAB PO SCH (16:30)
[2017-09-05] MEDS ORDERED: SODIUM CHLOR 0.9% 250 ML INJ 250 ML IV ONE (16:30)
[2017-09-05 16:40] LABS: % SATURATION IRON PROFILE 5.1 % (20-50); IRON (FE) 19 MCG/DL (65-175); TOTAL IRON BINDING CAPACITY 375 MCG/DL (250-450)
[2017-09-05 17:06] LABS: FOLATE 18.8 NG/ML (3.1-17.5)
[2017-09-05] MEDS: ATORVASTATIN 80 MG TAB PO SCH (20:42)
[2017-09-05] MEDS: FERROUS SULFATE 325 MG (65 MG ELEMENTAL IRON) TAB PO SCH (20:42)
[2017-09-05] MEDS: SODIUM CHLOR 0.9% 1000 ML INJ 1,000 ML IV SCH (23:21)
[2017-09-06] VITALS (22 sets, daily range): BP systolic 115–154; BP diastolic 57–70; PULSE 72–92; RESP 15–36; TEMP 97.6–98.3; O2SAT 94–99
[2017-09-06] MEDS: CHLORHEXIDINE GLUCONATE 2 % 1 PACK (2 CLOTHS) TOP SCH (02:40)
[2017-09-06 05:19] LABS: HEMATOCRIT 25.2 % (39.0-51.0); HEMOGLOBIN 8.5 GM/DL (13.0-17.0); MEAN CELL VOLUME 80.8 FL (80.0-100.0); MEAN CORPUSCULAR HEMOGLOBIN 27.4 PG (27.0-34.0); MEAN CORPUSCULAR HGB CONC 33.9 % (32.0-36.0); MEAN PLATELET VOLUME 8.7 FL (7.0-11.0); PLATELET COUNT 207 TH/MM3 (150-450); RED BLOOD COUNT 3.12 MIL/MM3 (4.50-5.90); RED CELL DISTRIBUTION WIDTH 18.4 % (11.6-17.2); WHITE BLOOD COUNT 10.6 TH/MM3 (4.0-11.0)
[2017-09-06 05:57] LABS: BICARBONATE 23.1 MEQ/L (21.0-32.0); CALCIUM 9.1 MG/DL (8.5-10.1); CREATININE 3.77 MG/DL (0.60-1.30); PHOSPHORUS 3.4 MG/DL (2.5-4.9)
[2017-09-06] MEDS: METOPROLOL SUCCINATE 50 MG EXTENDED RELEASE TAB PO SCH (10:50)
[2017-09-06] MEDS: FOLIC ACID 1 MG TAB PO SCH (10:50)
[2017-09-06] MEDS: AMIODARONE 200 MG TAB PO SCH ×2 (10:50→21:28)
[2017-09-06] MEDS: SODIUM CHLORIDE 0.9% FLUSH 10 ML FLUSH IV FLUSH SCH ×2 (10:50→21:29)
[2017-09-06] MEDS: THIAMINE HCL 100 MG TAB PO SCH (10:50)
[2017-09-06] MEDS: PANTOPRAZOLE SOD 40 MG DELAYED RELEASE TAB PO SCH (10:51)
[2017-09-06] MEDS: DOCUSATE SODIUM 50 MG/SENNA 8.6 MG TAB PO SCH ×2 (10:51→21:00)
[2017-09-06] MEDS: FERROUS SULFATE 325 MG (65 MG ELEMENTAL IRON) TAB PO SCH (10:51)
[2017-09-06] MEDS: CHOLECALCIFEROL (VIT D3) 1000 UNIT TAB PO SCH (10:51)
[2017-09-06] MEDS: ASPIRIN EC 81 MG TABEC PO SCH (10:51)
[2017-09-06] MEDS: MULTIVITAMIN TAB PO SCH (10:52)
--- NOTE | 2017-09-06 12:02 | HHI.NPPN ---
Subjective History of Present Illness 72-year-old white male with history of hypertension, chronic kidney disease approaching ESRD who developed chest pain and shortness of breath Objective Data Data Vital Signs Date Time Temp Pulse Resp B/P (MAP) Pulse Ox O2 Delivery O2 Flow Rate FiO2 09/06/17 08:32 97 09/06/17 06:00 72 20 135/62 (86) 97 09/06/17 06:00 74 09/06/17 05:00 72 20 130/61 (84) 96 09/06/17 05:00 72 09/06/17 04:00 82 09/06/17 04:00 98.0 82 20 154/67 (96) 97 09/06/17 03:00 74 20 144/68 (93) 98 09/06/17 03:00 74 09/06/17 02:00 75 20 143/67 (92) 97 09/06/17 02:00 75 09/06/17 01:00 74 20 146/70 (95) 96 09/06/17 01:00 74 09/06/17 00:00 87 09/06/17 00:00 97.6 88 20 148/68 (94) 97 09/05/17 23:00 81 09/05/17 23:00 81 20 144/69 (94) 99 09/05/17 22:21 98.3 79 26 140/66 98 09/05/17 22:02 98.9 78 20 132/62 98 09/05/17 22:00 79 09/05/17 22:00 79 20 141/66 (91) 94 09/05/17 21:29 99 21 09/05/17 21:00 77 20 137/64 (88) 92 09/05/17 21:00 77 09/05/17 20:00 79 09/05/17 20:00 79 20 126/59 (81) 99 09/05/17 19:00 85 09/05/17 19:00 98.9 80 20 130/63 (85) 99 09/05/17 18:00 72 09/05/17 16:00 72 09/05/17 14:00 72 -: 09/06/17 0412 09/06/17 0412 Physical Exam General Appearance: Well Developed, Well Nourished Pulmonary Resp Exam: Crackles, Decreased Bases Cardiology CV Exam: Regular, Normal Sinus Rhythm, Murmur Gastrointestinal/Abdomen GI Exam: Soft, Non-Tender, Bowel Sounds Present Extremeties Extremities Exam: Trace Edema Neurologic Neuro Exam: Alert, Awake, Oriented Assessment/Plan Problem List: (1) Acute renal failure ICD Codes: N17.9 - Acute kidney failure, unspecified Plan: Patient has advanced renal failure on hemodialysis Second treatment today Required blood transfusion again may start Epogen Bruising in the right arm from blood pressure cuff he may at some point needs heart catheterization Explained this to the patient Continue supportive care Severe iron deficient will give IV iron and and he will need X 3 DOSES Stop oral iron as IV iron is more effective. 1605 patient was seen during hemodialysis ultrafiltration of 1.5 L (2) CKD (chronic kidney disease) stage 4, GFR 15-29 ml/min ICD Codes: N18.4 - Chronic kidney disease, stage 4 (severe) Plan: Patient may have progress to stage V (3) GI bleed ICD Codes: K92.2 - Gastrointestinal hemorrhage, unspecified Status: Acute Plan: Endoscopy plan (4) Anemia ICD Codes: D64.9 - Anemia Status: Acute Plan: Status post blood transfusion (5) ACS (acute coronary syndrome) ICD Codes: I24.9 - Acute ischemic heart disease, unspecified Status: Acute Plan: Cardiology following AMI (6) Hypertension ICD Codes: I10 - Essential (primary) hypertension Plan: Continue to monitor Gaurav Shah MD Sep 06, 2017 12:02
[2017-09-06] MEDS: IRON SUCROSE INJ 200 MG in SODIUM CHLORIDE 0.9% INJ 100 ML IV SCH (13:00)
--- NOTE | 2017-09-06 13:10 | HHI.CCPN ---
Subjective Remarks/Hospital Course 72 year male presents to the emergency department from home by EMS transport for evaluation of retrosternal chest pain. No reported associated shortness of breath sweats nausea vomiting referred neck jaw back shoulder arm pain. Patient denies any abdominal pain. Patient has history of known coronary vessel disease myocardial infarction, angina pectoris as well as stage IV chronic kidney disease. Patient also has history of aortic insufficiency aortic stenosis COPD dyslipidemia hypertensive heart disease mitral regurgitation morbid obesity obstructive sleep apnea. Patient states he frequently has episodes of similar type of chest pain that is minutes indurations however this is been present since 8:30 PM and unremitting. Patient was noted to be hypotensive upon EMS arrival with a systolic blood pressure of 90 mmHg. Patient was given aspirin and a 500 cc bolus of normal saline. Patient also suffers from chronic anemia due to his CKD. Patient was seen as recently as March 2017 for a cardiac catheterization which was canceled secondary to his creatinine being 2.7 at the time with a GFR of 16 it was determined that the contrast would cause him to have further renal failure deterioration and require hemodialysis. Patient was also seen by cardiothoracic surgery and indicated that to evaluate him for a transcatheter aortic valve replacement he would need to undergo cardiac catheterization however as it was an elective catheterization of the time the study was canceled. Patient has had low hemoglobin in the past requiring blood transfusion. Patient does not take any iron supplements. Patient is currently on no blood thinning agents. Patient has not noticed any epistaxis, bleeding hemoptysis hematemesis coffee-ground emesis melena or hematochezia. Patient denies increased bruising. Patient failed Epogen therapy. Patient is able to identify exacerbating or alleviating factors. Patient also reports that he was recently started on Lasix as a new medication within the past 3 weeks. Patient has not noticed any lower extremity swelling. Patient has not noticed any new dyspnea on exertion or orthopnea. Patient was noted to have ischemic changes on his EKG. Dr. Damian from cardiology was contacted and starting heparin, aspirin. Patient's hemoglobin came back 5.5 and 2 units PRBCs were ordered. Patient was accepted for admission by critical care medicine service. When I evaluated the patient in the ER he was sitting up in the ER stretcher while receiving his first unit of PRBCs. He rated his chest pain at 2 out of 10 in intensity along with jaw pain. He stated this was not significantly better than when he came in. Off note rectal exam done by ER physician revealed black stool which was Hemoccult positive. 09/05 Patient denies chest pain or SOB. Plan for initiation of HD and then cardiac workup. EGD yesterday showed gastritis. Transfused 3 units PRBC yesterday and repeat Hgb was 8.4 CBC today is pending. Subjective: 09/06 Used home CPAP overnight. HD started yesterday with 1.5 Kg removal. Iron sucrose initiated and on Epogen per nephrology. No chestpain or SOB He is anxious to get out of ICU Objective Vital Signs Date Time Temp Pulse Resp B/P (MAP) Pulse Ox O2 Delivery O2 Flow Rate FiO2 09/06/17 11:00 82 23 149/67 (94) 99 09/06/17 08:00 98.2 09/05/17 21:29 21 09/04/17 16:35 Nasal Cannula 2 Intake and Output 09/06/17 09/06/17 09/07/17 08:00 16:00 00:00 Intake Total 1000 ml Output Total 700 ml Balance 300 ml Result Diagram: 09/06/17 0412 09/06/17 0412 Imaging Last Impressions Chest X-Ray 09/03/17 0000 Signed Impressions: CONCLUSION: Negative examination. Objective Remarks GENERAL: Well-developed obese male sitting up at side of bed eating tray of food. SKIN: Warm and dry, well perfused. HEAD: Normocephalic. EYES: No scleral icterus. No injection or drainage. NECK: Supple, trachea midline. No JVD or lymphadenopathy. CARDIOVASCULAR: Regular rate and rhythm , 4/6 systolic murmur heard throughout precordium. RESPIRATORY: Breath sounds equal bilaterally. No accessory muscle use. GASTROINTESTINAL: Abdomen soft, non-tender, nondistended. MUSCULOSKELETAL: No cyanosis, or edema. Ecchymosis distal aspect of humerus and proximal forearm, compartments soft, palpable pulses NEURO: Awake, alert, oriented x3. Moves all extremities with no focal deficit. A/P Assessment and Plan 72-year-old male with: Plan: Neuro: Daily EtOH use pain medications as needed. Thiamine/MVI/folic acid Cardiovascular: Angina Paroxysmal atrial fibrillation, now in sinus rhythm Coronary artery disease Severe aortic stenosis NSTEMI Hyperlipidemia HTN Norvasc 10 mg p.o. daily, metoprolol succinate 50 mg p.o. daily, aspirin 81 mg p.o. daily Amiodarone 400 mg p.o. every 12 hours (discharge dose will be 200 mg daily) Cardiology following, Dr. Anderson. Plan for further TAVR workup after HD start. . Avoid nitrates and BALTAZAR inhibitors due to severe aortic stenosis. Heparin drip off per Dr. Geronimo d/w cardiology Echo pending. Pulmonary: COPD MADAN Tobacco abuse Supplemental O2, bronchodilators as needed. Home CPAP GI/liver: Heme + stools Gastritis EGD 09/04 - gastritis, pathology pending Discussed with Dr. Baez 09/06. No plans for colonoscopy. Okay for antiplatelet/ anticoagulation for cath from his standpoint. Renal/: ESRD Followed by Dr. Shah from nephrology. Vascath placement by IR 09/05 and initiated HD with 1.5 kg removal HD again today 09/06. Eventual plan for PD however Tenckhoff catheter placement deferred until stabilized from cardiac standpoint so I discussed with him would be done at some point after TAVR. ID: No indication for antibiotics at this time. Heme: Severe Iron deficiency/Anemia secondary to CKD Transfuse to keep hemoglobin greater than 8 g percent. Transfused 1 unit PRBC 09/05 Iron sucrose 200 mg IV daily x3 doses Epogen 62405 units IV with HD per Nephrology Endocrine: Watch for hyperglycemia, SSI for glycemic control if needed. Prophylaxis: Protonix/ SCDs, ACCESS: PIV. Vascath placement by IR 09/05 #3. FULL CODE Updated patient regarding plan of care and multiple questions answered. He wanted list of his inpatient meds which I provided. If remains stable post-HD will transfer to [facility]. Level 2 followup Rissa Koch MD Sep 06, 2017 13:10
[2017-09-06] MEDS: ATORVASTATIN 80 MG TAB PO SCH (21:28)
[2017-09-06] MEDS: SODIUM CHLOR 0.9% 1000 ML INJ 1,000 ML IV SCH (21:33)
--- NOTE | 2017-09-06 21:54 | ECHRPT ---
Indication: LV function, Aortic Stenosis CONCLUSIONS The left ventricular systolic function is moderately reduced with an estimated ejection fraction in the range of 40-45%. Mild concentric left ventricular hypertrophy. Normal left ventricular size. Mitral annular calcification is present. Calcification of both mitral valve leaflets. Mildto moderate mitral valve regurgitation. The mitral valve regurgitation jet is directed posteriorly. Diffuse calcification of the aortic valve. Mild to moderate aortic valve regurgitation. Severe aortic valve stenosis. Aortic valve area is 0.74 cm. Aortic valve mean gradient is 43 mmHg. There is mild tricuspid valve regurgitation. The estimated pulmonary arterial pressure is 31.3 mmHg. Trivial pulmonary valve regurgitation. BP: / HR: Rhythm: Sinus MEASUREMENTS (Male / Female) Normal Values Technical Quality:Fair 2D ECHO LV Diastolic Diameter PLAX 4.8 cm 4.2 - 5.9 / 3.9 - 5.3 cm LV Systolic Diameter PLAX 4.0 cm IVS Diastolic Thickness 1.2 cm 0.6 - 1.0 / 0.6 - 0.9 cm LVPW Diastolic Thickness 1.2 cm 0.6 - 1.0 / 0.6 - 0.9 cm LV Relative Wall Thickness 0.5 RV Internal Dim ED PLAX 3.4 cm LVOT Diameter 2.0 cm LA Systolic Diameter LX 3.4 cm 3.0 - 4.0 / 2.7 - 3.8 cm M-MODE Aortic Root Diameter MM 3.5 cm LA Systolic Diameter MM 3.9 cm LA Ao Ratio MM 1.1 AV Cusp Separation MM 0.7 cm DOPPLER AV Peak Velocity 428.0 cm/s AV Peak Gradient 73.3 mmHg AV Mean Gradient 43.0 mmHg AV Velocity Time Integral 93.5 cm AI Peak Velocity 445.7 cm/s AI Peak Gradient 79.4 mmHg AI Pressure Half Time 376.7 ms LVOT Peak Velocity 120.0 cm/s LVOT Peak Gradient 5.8 mmHg LVOT Velocity Time Integral 22.0 cm AV Area Cont Eq vti 0.7 cm AV Area Cont Eq pk 0.9 cm MV Peak Velocity 119.0 cm/s MV Peak Gradient 5.7 mmHg MV Mean Velocity 82.8 cm/s MV Mean Gradient 3.0 mmHg MV Area PHT 1.9 cm Mitral E Point Velocity 91.3 cm/s Mitral A Point Velocity 129.0 cm/s Mitral E to A Ratio 0.7 LV E' Lateral Velocity 7.9 cm/s Mitral E to LV E' Lateral Ratio 11.6 LV E' Septal Velocity 4.1 cm/s Mitral E to LV E' Septal Ratio 22.3 TR Peak Velocity 231.0 cm/s TR Peak Gradient 21.3 mmHg Right Atrial Pressure 10.0 mmHg Pulmonary Artery Systolic Pressu 31.3 mmHg Right Ventricular Systolic Press 31.3 mmHg FINDINGS LEFT VENTRICLE The left ventricular systolic function is moderately reduced with an estimated ejection fraction in the range of 40-45%. Mild concentric left ventricular hypertrophy. Normal left ventricular size. RIGHT VENTRICLE Normal right ventricular size and systolic function. LEFT ATRIUM The left atrial size is normal. RIGHT ATRIUM The right atrial size is normal. ATRIAL SEPTUM Normal atrial septal thickness without atrial level shunting by limited color doppler interrogation. AORTA The aortic root and proximal ascending aorta are normal in size on limited imaging. MITRAL VALVE Mitral annular calcification is present. Calcification of both mitral valve leaflets. Moderate mitral valve regurgitation. The mitral valve regurgitation jet is directed posteriorly. AORTIC VALVE Trileaflet aortic valve. Diffuse calcification of the aortic valve. Moderate aortic valve regurgitation. Severe aortic valve stenosis. Aortic valve area is 0.74 cm. Aortic valve mean gradient is 43 mmHg. TRICUSPID VALVE Structurally normal tricuspid valve. There is mild tricuspid valve regurgitation. The estimated pulmonary arterial pressure is 31.3 mmHg. PULMONARY VALVE Trivial pulmonary valve regurgitation. VESSELS The inferior vena cava is normal in size. PERICARDIUM No pericardial effusion. Abimael Menon MD, FACC, [facility] (Electronically Signed) Final Date:06 September 2017 21:53
[2017-09-07] VITALS (27 sets, daily range): BP systolic 124–160; BP diastolic 58–88; PULSE 69–91; RESP 15–50; TEMP 97.8–99; O2SAT 94–99
[2017-09-07] MEDS: CHLORHEXIDINE GLUCONATE 2 % 1 PACK (2 CLOTHS) TOP SCH (03:14)
[2017-09-07 04:17] LABS: AUTOMATED NEUTROPHIL # 7.9 TH/MM3 (1.8-7.7); BASOPHIL # 0.1 TH/MM3 (0-0.2); BASOPHIL % 0.6 % (0.0-2.0); EOSINOPHIL # 0.2 TH/MM3 (0-0.4); EOSINOPHIL % 2.3 % (0.0-4.0); HEMATOCRIT 22.8 % (39.0-51.0); HEMOGLOBIN 7.7 GM/DL (13.0-17.0); LYMPH % 9.6 % (9.0-44.0); MEAN CELL VOLUME 81.3 FL (80.0-100.0); MEAN CORPUSCULAR HEMOGLOBIN 27.3 PG (27.0-34.0); MEAN CORPUSCULAR HGB CONC 33.6 % (32.0-36.0); MEAN PLATELET VOLUME 8.9 FL (7.0-11.0); MONOCYTE # 1.3 TH/MM3 (0-0.9); NEUT % 75.5 % (16.0-70.0); PLATELET COUNT 213 TH/MM3 (150-450); RED BLOOD COUNT 2.81 MIL/MM3 (4.50-5.90); RED CELL DISTRIBUTION WIDTH 18.6 % (11.6-17.2); WHITE BLOOD COUNT 10.5 TH/MM3 (4.0-11.0)
[2017-09-07 04:46] LABS: ALBUMIN 2.7 GM/DL (3.4-5.0); ALT (GPT) 24 U/L (12-78); AST (GOT) 39 U/L (15-37); BICARBONATE 27.4 MEQ/L (21.0-32.0); BLOOD UREA NITROGEN 44 MG/DL (7-18); CALCIUM 8.4 MG/DL (8.5-10.1); CHLORIDE 104 MEQ/L (98-107); CREATININE 3.21 MG/DL (0.60-1.30); GLOMERULAR FILTRATION RATE 19 ML/MIN (>89); GLUCOSE,RANDOM 96 MG/DL (74-106); SODIUM (NA) 141 MEQ/L (136-145)
[2017-09-07 04:48] LABS: ALKALINE PHOSPHATASE 53 U/L (45-117); TOTAL BILIRUBIN ADULT 0.4 MG/DL (0.2-1.0); TOTAL PROTEIN 5.8 GM/DL (6.4-8.2)
--- NOTE | 2017-09-07 06:53 | HHI.PR ---
Subjective Remarks Patient seen and examined this morning, their vitals are stable and the patient is afebrile. Patient denies CP. Does feel SOB. Reports being easily winded with exertion, unchanged from the past 6 months. Reports a BM but is unsure of the color. Denies abdominal pain. Used CPAP overnight. Objective Vital Signs Date Time Temp Pulse Resp B/P (MAP) Pulse Ox O2 Delivery O2 Flow Rate FiO2 09/07/17 06:00 71 20 124/59 (80) 96 09/07/17 06:00 71 09/07/17 05:00 80 20 125/59 (81) 95 09/07/17 05:00 80 09/07/17 04:00 77 09/07/17 04:00 98.9 77 20 139/62 (87) 94 09/07/17 03:00 74 09/07/17 03:00 74 20 133/60 (84) 95 09/07/17 02:00 72 09/07/17 02:00 72 20 131/63 (85) 96 09/07/17 01:00 73 09/07/17 01:00 73 20 127/64 (85) 97 09/07/17 00:00 99.0 74 20 144/66 (92) 95 09/07/17 00:00 76 09/06/17 23:00 77 20 130/62 (84) 96 09/06/17 23:00 77 09/06/17 22:00 73 20 132/60 (84) 97 09/06/17 22:00 73 09/06/17 21:00 79 09/06/17 21:00 79 20 126/58 (80) 97 09/06/17 20:00 74 20 115/57 (76) 96 09/06/17 20:00 74 09/06/17 19:00 98.3 82 32 125/59 (81) 94 09/06/17 19:00 77 09/06/17 16:00 78 09/06/17 14:00 92 09/06/17 12:00 84 34 147/67 (93) 98 09/06/17 12:00 84 09/06/17 11:00 82 23 149/67 (94) 99 09/06/17 10:00 89 26 146/64 (91) 98 09/06/17 10:00 89 09/06/17 09:00 91 36 150/70 (96) 97 09/06/17 08:32 97 09/06/17 08:00 73 09/06/17 08:00 98.2 73 16 130/61 (84) 97 09/06/17 07:00 72 15 132/61 (84) 97 I/O 09/06/17 09/06/17 09/06/17 09/07/17 09/07/17 09/07/17 07:00 15:00 23:00 07:00 15:00 23:00 Intake Total 1000 ml 470 ml 200 ml Output Total 700 ml 850 ml 350 ml Balance 300 ml -380 ml -150 ml Intake Oral 200 ml 360 ml 200 ml IV Total 110 ml Packed Cells 400 ml Blood Product IV Normal Saline Flush 400 ml Output Urine Total 700 ml 850 ml 350 ml # Bowel Movements 1 0 1 Result Diagram: 09/07/17 0333 09/07/17 0333 Imaging Last Impressions Catheter Placement X-Ray 09/05/17 1018 Signed Impressions: CONCLUSION: 1. Uncomplicated line placement as above. Chest X-Ray 09/04/17 0600 Signed Impressions: CONCLUSION: Cardiomegaly with minimal basilar atelectasis. No significant change from September 03. Other Results GENERAL: Well-appearing, no acute distress SKIN: Warm and dry. Large bruise noted right UE and left UE. HEAD: Normocephalic. EYES: No scleral icterus. No injection or drainage. NECK: Supple, trachea midline. No JVD or lymphadenopathy. CARDIOVASCULAR: Significant murmur appreciated throughout the precordium 06/03. RESPIRATORY: Anterior Breath sounds equal bilaterally. No accessory muscle use. GASTROINTESTINAL: Abdomen soft, non-tender, nondistended. MUSCULOSKELETAL: No cyanosis, or edema. A/P Problem List: (1) Anemia ICD Code: D64.9 - Anemia Status: Acute (2) Atrial fibrillation ICD Code: I48.91 - Unspecified atrial fibrillation Status: Acute (3) Non-ST elevation AL (NSTEMI) ICD Code: I21.4 - Non-ST elevation AL (NSTEMI) Status: Acute (4) CKD (chronic kidney disease) stage 4, GFR 15-29 ml/min ICD Code: N18.4 - Chronic kidney disease, stage 4 (severe) (5) GI bleed ICD Code: K92.2 - Gastrointestinal hemorrhage, unspecified Status: Acute (6) Hypertension ICD Code: I10 - Essential (primary) hypertension (7) Aortic stenosis ICD Code: I35.0 - Nonrheumatic aortic (valve) stenosis Status: Chronic (8) Paroxysmal atrial fibrillation ICD Code: I48.0 - Paroxysmal atrial fibrillation Status: Acute Assessment and Plan In summary this is a 72-year-old male with a medical history significant for coronary artery disease, AL, stage IV kidney disease, and aortic insufficiency with aortic stenosis who presented to [facility] with unremitting chest pain. The patient was seen back in March 2017 for similar. He was scheduled to have a cardiac cath done but was canceled due to his renal function. At that time the patient was also evaluated by cardiothoracic surgery for aortic valve replacement, but it was determined the patient would need to undergo a cardiac cath in order to have this procedure. The patient's EKG was abnormal upon admission to the hospital. Dr. Damian was contacted and was started on heparin. Patient also found to be significantly anemic and was Hemoccult- positive. NSTEMI CAD Paroxysmal a-fif Aortic Stenosis HTN - Norvasc 10 mg p.o. daily, metoprolol succinate 50 mg p.o. daily, aspirin 81 mg p.o. daily - Amiodarone 400 mg p.o. every 12 hours (discharge dose will be 200 mg daily) -Cardiology following, Dr. Anderson. Plan for further TAVR workup after HD start. -Avoid nitrates and BALTAZAR inhibitors due to severe aortic stenosis. - s/p heparin drip - Echo: EF 40-45%, mod mitral valve regurg, diffuse calcification of aortic valve - was made NPO by cardiology at midnight Severe Anemia -Likely due to GI bleed in the setting of anemia of chronic disease due to kidney disease -EGD on September 04 showed gastritis, pathology pending. Per Dr. Baez no plans for colonoscopy. -Patient cleared for antiplatelet, anticoagulation for [place] Tanner -Patient is status post 1 unit of packed red blood cells on September 05 -Iron sucrose 200 mg IV daily 3 -Epogen 1000 units IV with hemodialysis per nephrology End-stage renal disease -being followed by Dr. Shah -Vas-Cath placed by IR on September 05, initiated hemodialysis - Eventual plan for PD by general surgery however Tenckhoff catheter placement deferred until stabilized from cardiac standpoint, likely at some point after TAVR. GI prophy DVT prophy: Discharge Planning [facility]. No d/c plan in place, further workup is pending. Problem Qualifiers (1) Aortic stenosis: Qualified Codes: I35.0 - Nonrheumatic aortic (valve) stenosis Bing Lawton MD Sep 07, 2017 06:52
[2017-09-07] MEDS: FOLIC ACID 1 MG TAB PO SCH (07:39)
[2017-09-07] MEDS: CHOLECALCIFEROL (VIT D3) 1000 UNIT TAB PO SCH (07:39)
[2017-09-07] MEDS: DOCUSATE SODIUM 50 MG/SENNA 8.6 MG TAB PO SCH ×2 (07:39→20:06)
[2017-09-07] MEDS: METOPROLOL SUCCINATE 50 MG EXTENDED RELEASE TAB PO SCH (07:39)
[2017-09-07] MEDS: PANTOPRAZOLE SOD 40 MG DELAYED RELEASE TAB PO SCH (07:39)
[2017-09-07] MEDS: MULTIVITAMIN TAB PO SCH (07:39)
[2017-09-07] MEDS: THIAMINE HCL 100 MG TAB PO SCH (07:39)
[2017-09-07] MEDS: AMIODARONE 200 MG TAB PO SCH ×2 (07:40→20:06)
[2017-09-07] MEDS: ASPIRIN EC 81 MG TABEC PO SCH (07:40)
[2017-09-07] MEDS: IRON SUCROSE INJ 200 MG in SODIUM CHLORIDE 0.9% INJ 100 ML IV SCH (07:40)
[2017-09-07] MEDS: SODIUM CHLORIDE 0.9% FLUSH 10 ML FLUSH IV FLUSH SCH ×2 (07:46→20:06)
--- NOTE | 2017-09-07 12:21 | HHI.NPPN ---
Subjective History of Present Illness 72-year-old white male with history of hypertension, chronic kidney disease approaching ESRD who developed chest pain and shortness of breath Objective Data Data 09/07/17 09/08/17 19:00 07:00 Intake Total 110 ml Balance 110 ml IV Total 110 ml Vital Signs Date Time Temp Pulse Resp B/P (MAP) Pulse Ox O2 Delivery O2 Flow Rate FiO2 09/07/17 12:00 75 09/07/17 08:53 96 09/07/17 08:00 98.4 91 20 160/88 (112) 97 09/07/17 08:00 91 09/07/17 07:00 71 20 159/68 (98) 99 09/07/17 06:00 71 20 124/59 (80) 96 09/07/17 06:00 71 09/07/17 05:00 80 20 125/59 (81) 95 09/07/17 05:00 80 09/07/17 04:00 77 09/07/17 04:00 98.9 77 20 139/62 (87) 94 09/07/17 03:00 74 09/07/17 03:00 74 20 133/60 (84) 95 09/07/17 02:00 72 09/07/17 02:00 72 20 131/63 (85) 96 09/07/17 01:00 73 09/07/17 01:00 73 20 127/64 (85) 97 09/07/17 00:00 99.0 74 20 144/66 (92) 95 09/07/17 00:00 76 09/06/17 23:00 77 20 130/62 (84) 96 09/06/17 23:00 77 09/06/17 22:00 73 20 132/60 (84) 97 09/06/17 22:00 73 09/06/17 21:00 79 09/06/17 21:00 79 20 126/58 (80) 97 09/06/17 20:00 74 20 115/57 (76) 96 09/06/17 20:00 74 09/06/17 19:00 98.3 82 32 125/59 (81) 94 09/06/17 19:00 77 09/06/17 16:00 78 09/06/17 14:00 92 -: 09/07/17 0333 09/07/17 0333 Physical Exam General Appearance: Well Developed, Well Nourished Pulmonary Resp Exam: Crackles, Decreased Bases Cardiology CV Exam: Regular, Normal Sinus Rhythm, Murmur Gastrointestinal/Abdomen GI Exam: Soft, Non-Tender, Bowel Sounds Present Extremeties Extremities Exam: Trace Edema Neurologic Neuro Exam: Alert, Awake, Oriented Assessment/Plan Problem List: (1) Acute renal failure ICD Codes: N17.9 - Acute kidney failure, unspecified Plan: Patient has advanced renal failure on hemodialysis Lasix will be resumed he may at some point needs heart catheterization Explained this to the patient Continue supportive care Severe iron deficient will give IV iron and and he will need X 3 DOSES Stop on IV iron (2) CKD (chronic kidney disease) stage 4, GFR 15-29 ml/min ICD Codes: N18.4 - Chronic kidney disease, stage 4 (severe) Plan: Patient may have progress to stage V (3) GI bleed ICD Codes: K92.2 - Gastrointestinal hemorrhage, unspecified Status: Acute Plan: Endoscopy plan (4) Anemia ICD Codes: D64.9 - Anemia Status: Acute Plan: Status post blood transfusion (5) ACS (acute coronary syndrome) ICD Codes: I24.9 - Acute ischemic heart disease, unspecified Status: Acute Plan: Cardiology following AMI (6) Hypertension ICD Codes: I10 - Essential (primary) hypertension Plan: Continue to monitor Gaurav Shah MD Sep 07, 2017 12:21
[2017-09-07] MEDS: FUROSEMIDE 40 MG/4 ML VIAL IV PUSH SCH (12:55)
[2017-09-07] MEDS: ATORVASTATIN 80 MG TAB PO SCH (20:06)
[2017-09-07] MEDS: SODIUM CHLOR 0.9% 1000 ML INJ 1,000 ML IV SCH (20:06)
[2017-09-08] VITALS (20 sets, daily range): BP systolic 86–157; BP diastolic 49–70; PULSE 72–96; RESP 14–57; TEMP 98.4–98.8; O2SAT 97–100
[2017-09-08] MEDS: CHLORHEXIDINE GLUCONATE 2 % 1 PACK (2 CLOTHS) TOP SCH (03:05)
--- NOTE | 2017-09-08 08:21 | PD.CARD.PN ---
Subjective Subjective Remarks Denies CP, dizziness, PND, palpitations. Mild dyspnea this morning. Objective Medications Item Value Date Time Furosemide 40 mg 09/07/17 1230 (Lasix Inj) DAILY/IV PUSH 09/07/17 1255 Atorvastatin 80 mg 09/04/17 2100 Calcium HS/PO 09/07/172005 (Lipitor) Amlodipine 10 mg 09/04/17 0900 Besylate DAILY/PO 09/07/17 0739 (Norvasc) Metoprolol 50 mg 09/04/17 0900 Succinate DAILY/PO 09/07/17 0739 (Toprol Xl) Aspirin 81 mg 09/04/17 0900 (Ecotrin Ec) DAILY/PO 09/07/17 0740 Amiodarone HCl 400 mg 09/04/17 0900 (Cordarone) Q12HR/PO 09/07/172005 Current Medications Medications (Trade) Dose Ordered Sig/Marylou Route Start Time Stop Time Status Last Admin Heparin Sodium/ Dextrose 250 ml @ 10.417 mls/ hr TITRATE PRN IV 09/03/17 23:30 Future Hold 09/03/17 23:56 Sodium Chloride 1,000 ml @ 30 mls/hr Q24H IV 09/03/17 23:21 (NS Flush) 2 ml UNSCH PRN IV FLUSH 09/03/17 23:30 (NS Flush) 2 ml BID IV FLUSH 09/04/17 09:00 09/07/17 20:06 (Tylenol) 650 mg Q6H PRN PO 09/03/17 23:30 (Morphine Inj) 2 mg Q2H PRN IV PUSH 09/03/17 23:30 (Zofran Odt) 4 mg Q6H PRN PO 09/03/17 23:30 (Duoneb Neb) 1 ampule Q2HR NEB PRN INH 09/03/17 23:30 09/04/17 12:14 ([facility] [place] [facility]) 1 Q361D XX 09/03/17 23:30 09/03/17 23:30 (Chlorhexidine 2% Cloth) 3 pack Taper DAILY@04 TOP 09/04/17 04:00 08/31/18 03:59 09/08/17 03:05 (Chlorhexidine 2% Cloth) 3 pack UNSCH PRN TOP 09/03/17 23:30 (Sylvie-Colace) 1 tab BID PO 09/04/17 09:00 09/06/17 10:51 (Milk Of Magnesia Liq) 30 ml Q12H PRN PO 09/03/17 23:30 (Senokot) 17.2 mg Q12H PRN PO 09/03/17 23:30 (Dulcolax Supp) 10 mg DAILY PRN RECTAL 09/03/17 23:30 (Lactulose Liq) 30 ml DAILY PRN PO 09/03/17 23:30 (Norvasc) 10 mg DAILY PO 09/04/17 09:00 09/07/17 07:39 (Lipitor) 80 mg HS PO 09/04/17 21:00 09/07/17 20:06 (Vitamin D3) 1,000 units DAILY PO 09/04/17 09:00 09/07/17 07:39 (Toprol Xl) 50 mg DAILY PO 09/04/17 09:00 09/07/17 07:39 (Ecotrin Ec) 81 mg DAILY PO 09/04/17 09:00 09/07/17 07:40 (Cordarone) 400 mg Q12HR PO 09/04/17 09:00 09/07/17 20:06 Sodium Chloride 1,000 ml @ 0 mls/hr Q0M PRN OTHER 09/05/17 10:20 (Heparin Inj) 8,000 units UNSCH PRN IV FLUSH 09/05/17 10:30 Sodium Chloride 1,000 ml @ 200 mls/hr Q5H PRN IV 09/05/17 10:20 Sodium Chloride 1,000 ml @ 0 mls/hr Q0M PRN OTHER 09/05/17 10:20 (Mannitol Inj) 12.5 gm UNSCH PRN IV 09/05/17 10:30 Albumin Human 100 ml @ 60 mls/hr UNSCH PRN IV 09/05/17 10:30 (NS Flush) 5 ml UNSCH PRN IV FLUSH 09/05/17 10:30 (Heparin Inj) UNSCH PRN .XX 09/05/17 10:30 09/05/17 15:10 (Gentamicin Inj) 20 mg UNSCH PRN OTHER 09/05/17 10:30 09/05/17 15:10 (Zofran Inj) 4 mg UNSCH PRN IV PUSH 09/05/17 10:30 (Tylenol) 650 mg UNSCH PRN PO 09/05/17 10:30 (Benadryl) 25 mg UNSCH PRN PO 09/05/17 10:30 (Nitrostat Sl) 0.4 mg UNSCH PRN SL 09/05/17 10:30 (Catapres) 0.1 mg UNSCH PRN PO 09/05/17 10:30 (Gelfoam 12 Mm/7 Mm Top) 1 foam UNSCH PRN TOP 09/05/17 10:30 (Protonix) 40 mg DAILY PO 09/06/17 09:00 09/07/17 07:39 (NS Flush) UNSCH PRN IV FLUSH 09/05/17 14:15 (Heparin Inj) UNSCH PRN IV FLUSH 09/05/17 14:15 (Vitamin B1) 100 mg DAILY PO 09/05/17 16:30 09/07/17 07:39 (Folate) 1 mg DAILY PO 09/06/17 09:00 09/07/17 07:39 (Theragran) 1 tab DAILY PO 09/06/17 09:00 09/07/17 07:39 (Epogen Inj) 10,000 units UNSCH PRN IV PUSH 09/06/17 12:15 Iron Sucrose 200 mg/Sodium Chloride 110 ml @ 110 mls/hr DAILY IV 09/06/17 13:00 09/08/17 09:59 09/07/17 07:40 (Lasix Inj) 40 mg DAILY IV PUSH 09/07/17 12:30 09/07/17 12:55 Vital Signs / I&O Vital Signs Date Time Temp Pulse Resp B/P (MAP) Pulse Ox O2 Delivery O2 Flow Rate FiO2 09/08/17 04:00 74 09/08/17 04:00 98.8 74 16 133/63 (86) 98 09/08/17 03:31 73 15 116/53 (74) 99 09/08/17 03:01 74 18 141/61 (87) 100 09/08/17 03:00 74 14 98 09/08/17 02:31 72 15 137/63 (87) 98 09/08/17 02:01 75 15 128/58 (81) 98 09/08/17 02:00 75 16 98 09/08/17 01:31 77 57 117/52 (73) 98 09/08/17 01:01 79 28 129/57 (81) 97 09/08/17 01:00 81 17 97 09/08/17 00:00 98.7 72 16 138/61 (86) 99 09/08/17 00:00 72 09/07/17 23:31 72 16 130/58 (82) 98 09/07/17 23:01 71 17 131/63 (85) 98 09/07/17 23:00 72 16 99 09/07/17 22:31 75 20 145/65 (91) 97 09/07/17 22:00 72 20 130/61 (84) 96 09/07/17 21:31 75 27 125/63 (83) 99 09/07/17 21:01 80 50 131/61 (84) 96 09/07/17 21:00 74 35 97 09/07/17 20:38 95 21 09/07/17 20:31 75 18 129/59 (82) 96 09/07/17 20:01 78 41 128/59 (82) 97 09/07/17 20:00 75 09/07/17 20:00 98.6 75 34 98 09/07/17 19:00 79 34 145/65 (91) 97 09/07/17 16:00 69 09/07/17 15:00 98.4 77 26 132/62 (85) 96 09/07/17 12:00 75 09/07/17 11:00 97.8 71 15 141/67 (91) 96 09/07/17 08:53 96 I/O 09/07/17 09/07/17 09/07/17 09/08/17 09/08/17 09/08/17 07:00 15:00 23:00 07:00 15:00 23:00 Intake Total 200 ml 110 ml 300 ml 100 ml Output Total 350 ml 850 ml 1050 ml Balance -150 ml 110 ml -550 ml -950 ml Intake Oral 200 ml 300 ml 100 ml IV Total 110 ml Output Urine Total 350 ml 850 ml 1050 ml # Bowel Movements 1 0 0 Physical Exam GENERAL: Well developed, well nourished. No acute distress. HEENT: Jugular venous pressure is normal. CHEST: Lungs clear to auscultation bilaterally. Unlabored respiratory effort. CARDIAC: Regular rate and rhythm without S3, S4. II/ OMID base. Diminished S2. ABDOMEN: Soft, nontender, no hepatosplenomegaly. Bowel sounds present. EXTREMITIES: No clubbing, cyanosis, or edema. Assessment and Plan Problem List: (1) Non-ST elevation SD (NSTEMI) ICD Codes: I21.4 - Non-ST elevation SD (NSTEMI) Status: Acute Plan: No further angina. Last troponin up to 28.00. Suspect patient has underlying severe CAD on top of severe . EF on echo last week closer to 55% , not 40-45% as reported. REC cath today (2) Paroxysmal atrial fibrillation ICD Codes: I48.0 - Paroxysmal atrial fibrillation Status: Acute Plan: Remains in NSR. Tolerating oral Amiodarone so far. Continue same. Discharge dose should be 200 mg qd. (3) Aortic stenosis ICD Codes: I35.0 - Nonrheumatic aortic (valve) stenosis Status: Chronic Plan: Severe aortic stenosis by exam and recent echo with mean gradient > 50 mm Hg. Recommend cath today, possible TAVR in near future depending on cath findings. Code Status full code Discussed Condition With patient and Problem Qualifiers (1) Aortic stenosis: Qualified Codes: I35.0 - Nonrheumatic aortic (valve) stenosis Pepe Anderson MD Sep 08, 2017 08:21
[2017-09-08] MEDS: FOLIC ACID 1 MG TAB PO SCH (08:29)
[2017-09-08] MEDS: THIAMINE HCL 100 MG TAB PO SCH (08:30)
[2017-09-08] MEDS: MULTIVITAMIN TAB PO SCH (08:30)
[2017-09-08] MEDS: PANTOPRAZOLE SOD 40 MG DELAYED RELEASE TAB PO SCH (08:30)
[2017-09-08] MEDS: METOPROLOL SUCCINATE 50 MG EXTENDED RELEASE TAB PO SCH (08:30)
[2017-09-08] MEDS ORDERED: diphenhydrAMINE HCL 50 MG CAP PO SCH (08:30)
[2017-09-08] MEDS: ASPIRIN EC 81 MG TABEC PO SCH (08:30)
[2017-09-08] MEDS: AMIODARONE 200 MG TAB PO SCH ×2 (08:30→22:40)
[2017-09-08] MEDS ORDERED: MIDAZOLAM HCL 2 MG/2 ML VIAL IV PUSH SCH (08:30)
[2017-09-08] MEDS: CHOLECALCIFEROL (VIT D3) 1000 UNIT TAB PO SCH (08:30)
[2017-09-08] MEDS ORDERED: DIAZEPAM 10 MG TAB PO SCH (08:30)
[2017-09-08] MEDS: DOCUSATE SODIUM 50 MG/SENNA 8.6 MG TAB PO SCH ×2 (08:31→21:00)
[2017-09-08] MEDS: SODIUM CHLORIDE 0.9% FLUSH 10 ML FLUSH IV FLUSH SCH ×2 (08:31→22:40)
[2017-09-08] MEDS: FUROSEMIDE 40 MG/4 ML VIAL IV PUSH SCH (08:31)
[2017-09-08 08:36] LABS: AUTOMATED NEUTROPHIL # 7.8 TH/MM3 (1.8-7.7); BASOPHIL # 0.1 TH/MM3 (0-0.2); BASOPHIL % 0.8 % (0.0-2.0); EOSINOPHIL # 0.3 TH/MM3 (0-0.4); EOSINOPHIL % 2.5 % (0.0-4.0); HEMATOCRIT 21.4 % (39.0-51.0); HEMOGLOBIN 7.2 GM/DL (13.0-17.0); LYMPH % 9.2 % (9.0-44.0); LYMPHOCYTE # 0.9 TH/MM3 (1.0-4.8); MEAN CELL VOLUME 82.7 FL (80.0-100.0); MEAN CORPUSCULAR HEMOGLOBIN 27.8 PG (27.0-34.0); MEAN CORPUSCULAR HGB CONC 33.6 % (32.0-36.0); MEAN PLATELET VOLUME 8.9 FL (7.0-11.0); MONO % 9.2 % (0.0-8.0); MONOCYTE # 0.9 TH/MM3 (0-0.9); NEUT % 78.3 % (16.0-70.0); PLATELET COUNT 226 TH/MM3 (150-450); RED BLOOD COUNT 2.59 MIL/MM3 (4.50-5.90); RED CELL DISTRIBUTION WIDTH 18.4 % (11.6-17.2)
[2017-09-08] MEDS: IRON SUCROSE INJ 200 MG in SODIUM CHLORIDE 0.9% INJ 100 ML IV SCH (08:47)
[2017-09-08] MEDS ORDERED: SODIUM CHLOR 0.9% 1000 ML INJ 1,000 ML IV SCH (09:00)
[2017-09-08 09:12] LABS: BICARBONATE 25.3 MEQ/L (21.0-32.0); CALCIUM 8.9 MG/DL (8.5-10.1); CREATININE 4.3 MG/DL (0.60-1.30)
--- NOTE | 2017-09-08 14:28 | HHI.PR ---
Subjective Remarks Patient reports he is feeling tired. Mild shortness of breath. Denies chest pain. Objective Vitals Vital Signs Date Time Temp Pulse Resp B/P (MAP) Pulse Ox O2 Delivery O2 Flow Rate FiO2 09/08/17 12:01 98.4 76 24 86/49 (61) 100 09/08/17 12:00 75 09/08/17 08:00 98.6 96 19 125/57 (79) 100 09/08/17 08:00 96 09/08/17 04:00 74 09/08/17 04:00 98.8 74 16 133/63 (86) 98 09/08/17 03:31 73 15 116/53 (74) 99 09/08/17 03:01 74 18 141/61 (87) 100 09/08/17 03:00 74 14 98 09/08/17 02:31 72 15 137/63 (87) 98 09/08/17 02:01 75 15 128/58 (81) 98 09/08/17 02:00 75 16 98 09/08/17 01:31 77 57 117/52 (73) 98 09/08/17 01:01 79 28 129/57 (81) 97 09/08/17 01:00 81 17 97 09/08/17 00:00 98.7 72 16 138/61 (86) 99 09/08/17 00:00 72 09/07/17 23:31 72 16 130/58 (82) 98 09/07/17 23:01 71 17 131/63 (85) 98 09/07/17 23:00 72 16 99 09/07/17 22:31 75 20 145/65 (91) 97 09/07/17 22:00 72 20 130/61 (84) 96 09/07/17 21:31 75 27 125/63 (83) 99 09/07/17 21:01 80 50 131/61 (84) 96 09/07/17 21:00 74 35 97 09/07/17 20:38 95 21 09/07/17 20:31 75 18 129/59 (82) 96 09/07/17 20:01 78 41 128/59 (82) 97 09/07/17 20:00 75 09/07/17 20:00 98.6 75 34 98 09/07/17 19:00 79 34 145/65 (91) 97 09/07/17 16:00 69 09/07/17 15:00 98.4 77 26 132/62 (85) 96 I/O 09/07/17 09/07/17 09/07/17 09/08/17 09/08/17 09/08/17 07:00 15:00 23:00 07:00 15:00 23:00 Intake Total 200 ml 110 ml 300 ml 100 ml Output Total 350 ml 850 ml 1050 ml Balance -150 ml 110 ml -550 ml -950 ml Intake Oral 200 ml 300 ml 100 ml IV Total 110 ml Output Urine Total 350 ml 850 ml 1050 ml # Bowel Movements 1 0 0 Result Diagram: 09/08/17 0734 09/08/17 0734 Imaging Last Impressions Catheter Placement X-Ray 09/05/17 1018 Signed Impressions: CONCLUSION: 1. Uncomplicated line placement as above. Chest X-Ray 09/04/17 0600 Signed Impressions: CONCLUSION: Cardiomegaly with minimal basilar atelectasis. No significant change from September 03. Objective Remarks GENERAL: This is a well-nourished, well-developed patient, in no apparent distress. CARDIOVASCULAR: Normal rate and regular rhythm. 2 out of 6 OMID murmur best heard over the left upper sternal border. RESPIRATORY: Good respiratory efforts. Breath sounds equal and clear to auscultation bilaterally. GASTROINTESTINAL: Abdomen soft, non-tender, non-distended. Normal active bowel sounds MUSCULOSKELETAL: Extremities without cyanosis, or edema. NEURO: Alert & Oriented x4 to person, place, time, situation. Moves all ext x4 PSYCH: Appropriate mood and affect. A/P Assessment and Plan 72-year-old male with a medical history significant for coronary artery disease , HI, stage IV kidney disease, and aortic insufficiency with aortic stenosis who presented to [place] with unremitting chest pain. The patient was seen back in March 2017 for similar. He was scheduled to have a cardiac cath done but was canceled due to his renal function. At that time the patient was also evaluated by cardiothoracic surgery for aortic valve replacement, but it was determined the patient would need to undergo a cardiac cath in order to have this procedure. The patient's EKG was abnormal upon admission to the hospital. Dr. Damian was contacted and was started on heparin. Patient also found to be significantly anemic and was Hemoccult-positive. NSTEMI CAD Paroxysmal a-fif Aortic Stenosis HTN - Norvasc 10 mg p.o. daily, metoprolol succinate 50 mg p.o. daily, aspirin 81 mg p.o. daily - Amiodarone 400 mg p.o. every 12 hours (discharge dose will be 200 mg daily) -Cardiology following, Dr. Anderson. Plan for heart catheterization today. -Avoid nitrates and BALTAZAR inhibitors due to severe aortic stenosis. - s/p heparin drip - Echo: EF 40-45%, mod mitral valve regurg, diffuse calcification of aortic valve Severe Anemia -Likely due to GI bleed in the setting of anemia of chronic disease due to kidney disease -EGD on September 04 showed gastritis, pathology pending. Per Dr. Baez no plans for colonoscopy. -Patient cleared for antiplatelet, anticoagulation for Cruller Maker -Patient is status post 1 unit of packed red blood cells on September 05 -Iron sucrose 200 mg IV daily 3 -Epogen 1000 units IV with hemodialysis per nephrology End-stage renal disease -being followed by Dr. Shah -Vas-Cath placed by IR on September 05, initiated hemodialysis - Eventual plan for PD by general surgery however Tenckhoff catheter placement deferred until stabilized from cardiac standpoint, likely at some point after TAVR. Darby Granados MD Sep 08, 2017 14:28
[2017-09-08] MEDS ORDERED: MIDAZOLAM HCL 2 MG/2 ML VIAL ONE (14:55)
[2017-09-08] MEDS ORDERED: HEPARIN-NS/PF INJ 1,000 ML ONE (14:55)
[2017-09-08] MEDS ORDERED: VERAPAMIL HCL 5 MG/2 ML VIAL ONE (14:56)
[2017-09-08] MEDS ORDERED: HEPARIN SODIUM - IV 10,000 UNITS/10 ML VIAL ONE (14:56)
--- NOTE | 2017-09-08 15:42 | CATHPROC ---
[facility] HIS Report Study Information Study Number Admission Scheduled Start Study Start [id number] Sep 03 2017 11:23PM 09/08/2017 Sep 08 2017 2:47PM [employer] [facility] Cardiac Catheterization Admit Source Facility Department Other [facility] - Plant Utility Person Physician and Clinical Staff Initial Pepe Torres Dietary Aide Teacher Yusra Wright,THIERRY Dietary Aide Teacher Garcia Stinson,RN Recorder Moni Cho ,RT(R) Scrub Ruba Connelly,RT(R) Procedures Performed Procedure Location (Site) Vessel Name Coronary Angiograms LCA Left Coronary Coronary Angiograms RCA Right Coronary L Heart Cath Wire insertion Radial (right) Radial Art. Equipment Time Corrosion Control Technician Description Size Mfg Part Number Used/Scraped TRANSDUCER, TRUWAVE [id number] 15:04 BRUCE BARRON * Used W/STOCKCOCK *[id number] 15:04 MALLINCKRODT SYRINGE, ANGIOMAT 150ML 150ML *[id number] Used 2S [employer] CONCEPT DRAPE, RADIAL FEMORAL FULL 15:04 * [id number] *[id number] Used DEVELOPMENT BODY [id number] 15:04 [employer] BLANKET,WARM AIR CCL * Used *[id number] 15:04 [employer] PACK, CCL CUSTOM * Used *[id number] 15:04 [employer] SUPPORT, ARTERIAL ADULT 99668 *[id number] Used [id number] 15:04 [employer] PACER PEN, SKIN DUAL W/ RULER * Used *[id number] BAND, RADIAL COMPRESSION TR [id number] 15:30 [employer] 29CM Used LARGE 29 *[id number] SHEATH, FR6 RADIAL PRELUDE 15:04 [employer] FR 6 [id number] Used EASE 11CM [id number] 15:04 [employer] WIRE, EXCHANGE 260CM 3MMJ 260CM Used *[id number] 15:04 NAMIC MANIFOLD, 4 PORT * Used *[id number] 15:04 [employer] OMNIPAQUE, 350 MG, 150ML 150ML [id number] Used CATHETER, FR5 OPTITORQUE [id number] 15:23 [employer] MEDICAL FR 5 Used RADIAL TIG 4.0 *[id number] History: Current Medications Medication Dosage/Unit Route Frequency Last Date/Time Taken Beta Gentry History: Allergies Allergy Reaction No Known Allergies History: Risk Factors Family History of Hypertension Dyslipidemia Previous MA Previous Heart Failure Premature CAD Yes Yes Yes No No Prior Valve Prior PCI Prior CABG Surgery No No No Cerebrovascular Peripheral Artery Chronic Lung On Dialysis Diabetes Disease Disease Disease Yes No No No No History: Stress Tests Stress or Imaging Studies Performed No History: Other Current Smoker Packs a Day Years Used Pack Years Yes 1 30 30 Labs Hgb (g/dl) Hct (%) Platelets (thousands) 11.60-17.00 35.00-51.00 150.00-450.00 7.2 21.4 213 Glucose (mg/dl) BUN (mg/dl) Creatinine (mg/dl) BUN:Creatinine (1:x) 74.00-106.00 7.00-18.00 0.50-1.30 10.00-20.00 96 44 4.3 10.2 Na (meq/l) K (meq/l) 136.00-145.00 3.50-5.10 141 3.7 CPK-MB (ng/ML) 0.50-3.60 Not Drawn Medication Medication Total Dose (Bolus/Oral) Medication Total Dosage/Unit 1% XYLOCAINE 5 mL RADIAL COCKTAIL 5 mL (Bolus) Medications (Bolus/Oral) Medication Time Given Dosage/Unit Administered By Reason 1% XYLOCAINE 09/08/2017 3:23:16 PM 5 mL Pepe Anderson 5 mL 1% XYLOCAINE given in lab by Pepe Anderson in Right Hand via Subcutaneous. Ntg 200mcg Verapamil 2.5mg Heparin RADIAL COCKTAIL 09/08/2017 3:25:31 PM 5 mL (Bolus) Pepe Anderson 3000U 5 mL (Bolus) RADIAL COCKTAIL given in lab by Pepe Anderson via Radial. Using [Solution Name]. Reason: Ntg 200mcg Verapamil 2.5mg Heparin 2000U. Medication (Drip) Medication Time Given Dosage/Unit Concentration/Unit Diluent (ml) Solutio n IV Solutions 09/08/2017 2:47:57 PM 50 mL (IV) NaCl .9 Patient arrived on IV Solutions via Peripheral IV. Pump/Drip Flow using NaCl .9. Initial Case Assessment Cardiovascular HR NIBP 71 88/36 Edema Present Skin color Skin Mild Normal Warm Dry Circulatory - Right Pulses Dorsalis Pedis Femoral Radial 2 2 2 Scale (0,1,2,3,4,d) Circulatory - Left Pulses Dorsalis Pedis Femoral Radial 2 2 Scale (0,1,2,3,4,d) Neurological State Oriented to time-place- Alert Moves all extremities person Respiration - General Respiration Rate SpO2 (%) (B/min) 25 99 Final Case Assessment Cardiovascular HR NIBP 71 88/36 Edema Present Skin color Skin Mild Normal Warm Dry Circulatory - Right Pulses Dorsalis Pedis Femoral Radial 2 2 2 Scale (0,1,2,3,4,d) Circulatory - Left Pulses Dorsalis Pedis Femoral Radial 2 2 Scale (0,1,2,3,4,d) Neurological State Oriented to time-place- Alert Moves all extremities person Respiration - General Respiration Rate SpO2 (%) (B/min) 25 99 Chronological Log Time Study Chronological Log 14:47:43 Patient arrived via Bed. 14:47:44 Patient Name, D.O.B, / Armband Verified By R.N. 14:47:45 Consent signed by the physician and the patient and verified by the Plant Utility Person staff. 14:47:45 Pre-op and post- op instructions given; patient acknowledges understanding of instructions. 14:47:46 Verbal Stimulation=2 Physical Stimulation=2 Airway=2 Respiration=2 TOTAL=8. (0=absent, 1=li mited, 2=present) 14:47:49 Allens test performed on the right radial and ulnar artery. positive 14:47:51 Patient has been NPO for More than 6Hrs. 14:47:51 Skin Breakdown- none per patient 14:47:54 Patient Warmer Placed on the Table. 14:47:56 Christopher Prominences Protected 14:47:56 IV Warmer Connected To Patient. 14:47:57 A # 20 IV was noted in the Antecubital (left). Grade = 0 14:47:57 Patient arrived on IV Solutions via Peripheral IV. Pump/Drip Flow using NaCl .9. 14:47:58 History and physical on the chart or being dictated. Assessment: Initial Case, HR=71 BPM, NIBP=88/36 mmhg, Edema=Mild, Color=Normal, Skin = Warm, Dr y Right Pulses: Gagandeep Ped=2, Femoral=2, Radial=2 14:47:59 Left Pulses: Gagandeep Ped=2, Femoral=2 Neurological: State=Alert, Ox3, YAN Respiration: Resp=25 B/min, SpO2=99 % Vitals capture started with the following parameters, Patient=Adult, Interval=5 min, Initial Pr mzrkwh=984 mmHg, 14:58:10 Deflation Rate=5 mmHg, Cuff placed on Left Arm 14:58:11 Reference ECG taken 14:59:05 HR=67 bpm, NIBP=88/39 mmhg, RdV0=655.0 %, Resp=22 B/min 15:01:10 NIBP STAT measurement started. 15:01:59 HR=70 bpm, NIBP=88/36 mmhg, SpO2=97.0 %, Resp=27 B/min 15:03:58 HR=68 bpm, NIBP=86/33 mmhg, SpO2=98.0 %, Resp=25 B/min 15:06:32 Right Radial and groin(s) prepped with 2% chlorhexidine, and draped after a 3 min. waiting time. 15:09:44 HR=69 bpm, NIBP=94/36 mmhg, SpO2=99.0 %, Resp=23 B/min 15:11:08 NIBP STAT measurement started. 15:11:47 HR=70 bpm, ALKS=050/53 mmhg, SpO2=97.0 %, Resp=14 B/min 15:13:15 Pressure channel 1 zeroed. 15:13:50 HR=69 bpm, SULS=492/60 mmhg, SpO2=97.0 %, Resp=18 B/min 15:14:11 MD paged 15:16:16 MD responded 15:18:55 HR=67 bpm, NIBP=99/50 mmhg, SpO2=94.0 %, Resp=7 B/min 15:19:58 MD arrived. Time Out. Correct patient, correct procedure, correct physician, labs, allergies, and equipment verified with rn labor and delivery 15:22:08 team present. Fire risk assesment completed (see hard stop sheet for coding). Time Out Conc urred by MD and individual staff in procedure. 15:23:13 Case Start 15:23:16 5 mL 1% XYLOCAINE given in lab by Pepe Anderson in Right Hand via Subcutaneous. 15:23:48 HR=71 bpm, ZGQA=074/62 mmhg, SpO2=97.0 %, Resp=18 B/min 15:23:56 Access site was right Radial Artery. 15:24:06 A wire was inserted via Radial (right). A SHEATH, FR6 RADIAL PRELUDE EASE 11CM FR 6 was advanced into the Radial (right) using the Perc utaneous 15:24:17 technique. 5 mL (Bolus) RADIAL COCKTAIL given in lab by Pepe Anderson via Radial. Using [Solution Name]. Re ason: Ntg 200mcg 15:25:31 Verapamil 2.5mg Heparin 2000U. A CATHETER, FR5 OPTITORQUE RADIAL TIG 4.0 FR 5 was advanced over a wire. OMNIPAQUE, 350 MG, 150 ML 150ML 15:25:32 was used for injections. Recorded Pressure: Ao, HR=72, Condition=Condition 1 15:26:41 (Aorta) Ao 93/49/69 15:27:45 The LCA was injected and visualized at various angles. OMNIPAQUE, 350 MG, 150ML 150ML used . 15:28:55 HR=72 bpm, HZGU=518/48 mmhg, SpO2=95.0 %, Resp=9 B/min 15:29:00 The RCA was injected and visualized at various angles. OMNIPAQUE, 350 MG, 150ML 150ML used . 15:29:35 Catheter was removed 15:30:08 Case End (Physician broke scrub) Assessment: Final Case, HR=71 BPM, NIBP=88/36 mmhg, Edema=Mild, Color=Normal, Skin = Warm, Dry Right Pulses: Gagandeep Ped=2, Femoral=2, Radial=2 15:30:16 Left Pulses: Gagandeep Ped=2, Femoral=2 Neurological: State=Alert, Ox3, YAN Respiration: Resp=25 B/min, SpO2=99 % 15:30:46 Catheter(s) removed without difficulty Radial Compression Device Used. ~VOLUME ML~ mLs of air placed in closure device. Affected hand ~O2 SATURATION~ 15:30:48 % O2 saturation. 15:31:02 Sterile dressing applied to site 15:31:03 No case complications noted. 15:31:04 Cine recording checked. 15:31:05 Bedside Report will be given. 15:31:09 A Left Heart Cath was performed. 15:38:54 Patient moved to [facility] End Study - Contrast Media Used In Study Contrast Total Opened (mL) Total Used (mL) Total Wasted (mL) Omnipaque 40 40 0 End Study - Maximum Contrast Load Max Contrast Load (mL) 126.2 End Study - Radiation Exposure Fluoro Time (minutes) 2.1 End Study - Sheaths Sheaths Pulled By Sheath Hold Time (min) Ruba Connelly End Study - Patient Disposition Complications Transferred To Interventional Outcome No Critical Care Bed No attempt made
--- NOTE | 2017-09-08 15:48 | MA ---
cc: Pepe Anderson MD DATE: 09/08/2017 PROCEDURE: Coronary angiography. PROCEDURE NOTES: The patient was brought to the cardiac catheterization laboratory in a fasting state after having signed informed consent. The right radial region was prepped and draped as per policy and anesthetized with 1% lidocaine. Arterial access was obtained via the right radial artery and a 6-Turkish sheath placed. Coronary arteriography was performed using a [place] catheter. Left ventriculography was not done. There were no apparent immediate complications. A radial artery compression band was applied to his right wrist at the end of the case to achieve good hemostasis. HEMODYNAMIC DATA: Aorta 93/49 with a mean of 69. CORONARY ARTERIOGRAPHY: The left main is normal. The left anterior descending gives rise to a large diagonal. Right before the takeoff of this diagonal, the proximal LAD has 80% stenosis. The mid to distal LAD appears to have minimal diffuse luminal irregularities. The left circumflex is a medium-sized vessel giving rise to a small to medium-sized obtuse marginal. There are minimal luminal irregularities in the proximal left circumflex. The obtuse marginal is normal. The right coronary artery is totally occluded in its mid-portion. There are good left to right collaterals. CONCLUSIONS: 1. Severe two-vessel coronary artery disease. 2. Right dominant system. 3. By echocardiogram, severe aortic stenosis and overall normal left ventricular function. DISCUSSION: The patient will be referred for bypass surgery. Bypass grafts could be placed to the LAD and right coronary artery, and the aortic valve can be replaced as well. MD SHANNON LuR/SB , 03:37 PM , 03:47 PM
--- NOTE | 2017-09-08 17:33 | HHI.NPPN ---
Subjective History of Present Illness 72-year-old white male with history of hypertension, chronic kidney disease approaching ESRD who developed chest pain and shortness of breath Objective Data Data Vital Signs Date Time Temp Pulse Resp B/P (MAP) Pulse Ox O2 Delivery O2 Flow Rate FiO2 09/08/17 16:00 72 24 115/56 (75) 100 09/08/17 16:00 78 09/08/17 15:58 73 26 117/56 (76) 100 09/08/17 12:01 98.4 76 24 86/49 (61) 100 09/08/17 12:00 75 09/08/17 08:00 98.6 96 19 125/57 (79) 100 09/08/17 08:00 96 09/08/17 04:00 74 09/08/17 04:00 98.8 74 16 133/63 (86) 98 09/08/17 03:31 73 15 116/53 (74) 99 09/08/17 03:01 74 18 141/61 (87) 100 09/08/17 03:00 74 14 98 09/08/17 02:31 72 15 137/63 (87) 98 09/08/17 02:01 75 15 128/58 (81) 98 09/08/17 02:00 75 16 98 09/08/17 01:31 77 57 117/52 (73) 98 09/08/17 01:01 79 28 129/57 (81) 97 09/08/17 01:00 81 17 97 09/08/17 00:00 98.7 72 16 138/61 (86) 99 09/08/17 00:00 72 09/07/17 23:31 72 16 130/58 (82) 98 09/07/17 23:01 71 17 131/63 (85) 98 09/07/17 23:00 72 16 99 09/07/17 22:31 75 20 145/65 (91) 97 09/07/17 22:00 72 20 130/61 (84) 96 09/07/17 21:31 75 27 125/63 (83) 99 09/07/17 21:01 80 50 131/61 (84) 96 09/07/17 21:00 74 35 97 09/07/17 20:38 95 21 09/07/17 20:31 75 18 129/59 (82) 96 09/07/17 20:01 78 41 128/59 (82) 97 09/07/17 20:00 75 09/07/17 20:00 98.6 75 34 98 09/07/17 19:00 79 34 145/65 (91) 97 -: 09/08/17 0734 09/08/17 0734 Physical Exam General Appearance: Well Developed, Well Nourished Pulmonary Resp Exam: Crackles, Decreased Bases Cardiology CV Exam: Regular, Normal Sinus Rhythm, Murmur Gastrointestinal/Abdomen GI Exam: Soft, Non-Tender, Bowel Sounds Present Extremeties Extremities Exam: Trace Edema Neurologic Neuro Exam: Alert, Awake, Oriented Assessment/Plan Problem List: (1) Acute renal failure ICD Codes: N17.9 - Acute kidney failure, unspecified Plan: Patient has advanced renal failure on hemodialysis heart catheterization done severe two-vessel coronary artery disease LAD 80% and right coronary artery total occlusion severely AV stenosis He will need open heart surgery Explained this to the patient Continue supportive care Hemodialysis to be done this evening discussed with dialysis team Continue supportive care Await cardiovascular surgical input (2) CKD (chronic kidney disease) stage 4, GFR 15-29 ml/min ICD Codes: N18.4 - Chronic kidney disease, stage 4 (severe) Plan: Patient may have progress to stage V (3) GI bleed ICD Codes: K92.2 - Gastrointestinal hemorrhage, unspecified Status: Acute Plan: Endoscopy plan (4) Anemia ICD Codes: D64.9 - Anemia Status: Acute Plan: Status post blood transfusion (5) ACS (acute coronary syndrome) ICD Codes: I24.9 - Acute ischemic heart disease, unspecified Status: Acute Plan: Cardiology following AMI (6) Hypertension ICD Codes: I10 - Essential (primary) hypertension Plan: Continue to monitor Gaurav Shah MD Sep 08, 2017 17:33
[2017-09-08] MEDS ORDERED: IOHEXOL 350 MG/ML 50 ML BTL (for Cath Lab) OTHER ONE (18:33)
[2017-09-08] MEDS: ATORVASTATIN 80 MG TAB PO SCH (22:41)
[2017-09-08] MEDS: SODIUM CHLOR 0.9% 1000 ML INJ 1,000 ML IV SCH (22:41)
[2017-09-09] VITALS (30 sets, daily range): BP systolic 102–182; BP diastolic 44–95; PULSE 66–83; RESP 16–20; TEMP 97.8–99.6; O2SAT 98–100
[2017-09-09] MEDS: CHLORHEXIDINE GLUCONATE 2 % 1 PACK (2 CLOTHS) TOP SCH (03:57)
[2017-09-09 06:27] LABS: BICARBONATE 26.9 MEQ/L (21.0-32.0); CALCIUM 8.3 MG/DL (8.5-10.1); CREATININE 3.78 MG/DL (0.60-1.30)
[2017-09-09 06:40] LABS: MEAN CELL VOLUME 82.9 FL (80.0-100.0); MEAN CORPUSCULAR HEMOGLOBIN 27.4 PG (27.0-34.0); MEAN PLATELET VOLUME 8.8 FL (7.0-11.0); PLATELET COUNT 236 TH/MM3 (150-450); RED BLOOD COUNT 2.51 MIL/MM3 (4.50-5.90); RED CELL DISTRIBUTION WIDTH 18.7 % (11.6-17.2); WHITE BLOOD COUNT 10.2 TH/MM3 (4.0-11.0)
[2017-09-09 06:47] LABS: HEMATOCRIT 20.8 % (39.0-51.0); HEMOGLOBIN 6.9 GM/DL (13.0-17.0)
--- NOTE | 2017-09-09 08:19 | PD.CARD.PN ---
Subjective Subjective Remarks Denies CP, dizziness, PND, palpitations. Mild episodic dyspnea . Objective Medications Item Value Date Time Furosemide 40 mg 09/07/17 1230 (Lasix Inj) DAILY/IV PUSH 09/08/17 0831 Atorvastatin 80 mg 09/04/17 2100 Calcium HS/PO 09/08/17 2241 (Lipitor) Amlodipine 10 mg 09/04/17 0900 Besylate DAILY/PO 09/08/17 0830 (Norvasc) Metoprolol 50 mg 09/04/17 0900 Succinate DAILY/PO 09/08/17 0830 (Toprol Xl) Aspirin 81 mg 09/04/17 0900 (Ecotrin Ec) DAILY/PO 09/08/17 0830 Amiodarone HCl 400 mg 09/04/17 0900 (Cordarone) Q12HR/PO 09/08/17 2240 Current Medications Medications (Trade) Dose Ordered Sig/Marylou Route Start Time Stop Time Status Last Admin Heparin Sodium/ Dextrose 250 ml @ 10.417 mls/ hr TITRATE PRN IV 09/03/17 23:30 Future Hold 09/03/17 23:56 Sodium Chloride 1,000 ml @ 30 mls/hr Q24H IV 09/03/17 23:21 09/08/17 22:41 (NS Flush) 2 ml UNSCH PRN IV FLUSH 09/03/17 23:30 (NS Flush) 2 ml BID IV FLUSH 09/04/17 09:00 09/08/17 22:40 (Tylenol) 650 mg Q6H PRN PO 09/03/17 23:30 (Morphine Inj) 2 mg Q2H PRN IV PUSH 09/03/17 23:30 (Zofran Odt) 4 mg Q6H PRN PO 09/03/17 23:30 (Duoneb Neb) 1 ampule Q2HR NEB PRN INH 09/03/17 23:30 09/04/17 12:14 ([facility] Information) 1 Q361D XX 09/03/17 23:30 09/03/17 23:30 (Chlorhexidine 2% Cloth) Taper DAILY@04 TOP 09/04/17 04:00 08/31/18 03:59 09/09/17 03:57 (Chlorhexidine 2% Cloth) 3 pack UNSCH PRN TOP 6/6/18 23:30 (Sylvie-Colace) 1 tab BID PO 09/04/17 09:00 09/06/17 10:51 (Milk Of Magnesia Liq) 30 ml Q12H PRN PO 09/03/17 23:30 (Senokot) 17.2 mg Q12H PRN PO 09/03/17 23:30 (Dulcolax Supp) 10 mg DAILY PRN RECTAL 09/03/17 23:30 (Lactulose Liq) 30 ml DAILY PRN PO 09/03/17 23:30 (Norvasc) 10 mg DAILY PO 09/04/17 09:00 09/08/17 08:30 (Lipitor) 80 mg HS PO 09/04/17 21:00 09/08/17 22:41 (Vitamin D3) 1,000 units DAILY PO 09/04/17 09:00 09/08/17 08:30 (Toprol Xl) 50 mg DAILY PO 09/04/17 09:00 09/08/17 08:30 (Ecotrin Ec) 81 mg DAILY PO 09/04/17 09:00 09/08/17 08:30 (Cordarone) 400 mg Q12HR PO 09/04/17 09:00 09/08/17 22:40 Sodium Chloride 1,000 ml @ 0 mls/hr Q0M PRN OTHER 09/05/17 10:20 (Heparin Inj) 8,000 units UNSCH PRN IV FLUSH 09/05/17 10:30 Sodium Chloride 1,000 ml @ 200 mls/hr Q5H PRN IV 09/05/17 10:20 Sodium Chloride 1,000 ml @ 0 mls/hr Q0M PRN OTHER 09/05/17 10:20 (Mannitol Inj) 12.5 gm UNSCH PRN IV 09/05/17 10:30 Albumin Human 100 ml @ 60 mls/hr UNSCH PRN IV 09/05/17 10:30 (NS Flush) 5 ml UNSCH PRN IV FLUSH 09/05/17 10:30 (Heparin Inj) UNSCH PRN .XX 09/05/17 10:30 09/05/17 15:10 (Gentamicin Inj) 20 mg UNSCH PRN OTHER 09/05/17 10:30 09/05/17 15:10 (Zofran Inj) 4 mg UNSCH PRN IV PUSH 09/05/17 10:30 (Tylenol) 650 mg UNSCH PRN PO 09/05/17 10:30 (Benadryl) 25 mg UNSCH PRN PO 09/05/17 10:30 (Nitrostat Sl) 0.4 mg UNSCH PRN SL 09/05/17 10:30 (Catapres) 0.1 mg UNSCH PRN PO 09/05/17 10:30 (Gelfoam 12 Mm/7 Mm Top) 1 foam UNSCH PRN TOP 09/05/17 10:30 (Protonix) 40 mg DAILY PO 09/06/17 09:00 09/08/17 08:30 (NS Flush) UNSCH PRN IV FLUSH 09/05/17 14:15 (Heparin Inj) UNSCH PRN IV FLUSH 09/05/17 14:15 (Vitamin B1) 100 mg DAILY PO 09/05/17 16:30 09/08/17 08:30 (Folate) 1 mg DAILY PO 09/06/17 09:00 09/08/17 08:29 (Theragran) 1 tab DAILY PO 09/06/17 09:00 09/08/17 08:30 (Epogen Inj) 10,000 units UNSCH PRN IV PUSH 09/06/17 12:15 (Lasix Inj) 40 mg DAILY IV PUSH 09/07/17 12:30 09/08/17 08:31 (Benadryl) 50 mg DYE COLORIST DYER PO 09/08/17 08:30 09/12/17 08:29 09/08/17 13:54 (Valium) 10 mg DYE COLORIST DYER PO 09/08/17 08:30 09/12/17 08:29 09/08/17 13:51 (Versed Inj) 1 mg DYE COLORIST DYER IV PUSH 09/08/17 08:30 09/12/17 08:29 Vital Signs / I&O Vital Signs Date Time Temp Pulse Resp B/P (MAP) Pulse Ox O2 Delivery O2 Flow Rate FiO2 09/09/17 07:59 100 21 09/09/17 04:00 97.9 77 147/66 (93) 99 09/09/17 03:01 66 102/44 (63) 98 09/09/17 03:00 67 98 09/09/17 03:00 67 98 09/09/17 02:01 69 135/59 (84) 99 09/09/17 02:00 69 99 09/09/17 01:36 72 144/76 (98) 99 09/09/17 01:00 71 98 09/09/17 00:00 98.4 74 98 09/08/17 23:07 81 153/65 (94) 99 09/08/17 23:00 81 37 100 09/08/17 23:00 72 09/08/17 22:23 82 18 157/70 (99) 100 09/08/17 20:00 72 09/08/17 16:00 72 24 115/56 (75) 100 09/08/17 16:00 78 09/08/17 15:58 73 26 117/56 (76) 100 09/08/17 12:01 98.4 76 24 86/49 (61) 100 09/08/17 12:00 75 I/O 09/08/17 09/08/17 09/08/17 09/09/17 09/09/17 09/09/17 07:00 15:00 23:00 07:00 15:00 23:00 Intake Total 100 ml 110 ml 618 ml 360 ml Output Total 1050 ml 3600 ml 300 ml Balance -950 ml 110 ml -2982 ml 60 ml Intake Oral 100 ml 240 ml 120 ml IV Total 110 ml 378 ml 240 ml Output Urine Total 1050 ml 1600 ml 300 ml Hemodialysis 2000 ml # Bowel Movements 0 Physical Exam GENERAL: Well developed, well nourished. No acute distress. HEENT: Jugular venous pressure is normal. CHEST: Minimal expiratory wheezes. CARDIAC: Regular rate and rhythm without S3, S4. II/ OMID base. Diminished S2. ABDOMEN: Soft, nontender, no hepatosplenomegaly. Bowel sounds present. EXTREMITIES: No clubbing, cyanosis, or edema. Laboratory Laboratory Tests Test 09/09/17 05:06 White Blood Count 10.2 TH/MM3 Red Blood Count 2.51 MIL/MM3 Hemoglobin 6.9 GM/DL Hematocrit 20.8 % Mean Corpuscular Volume 82.9 FL Mean Corpuscular Hemoglobin 27.4 PG Mean Corpuscular Hemoglobin Concent 33.0 % Red Cell Distribution Width 18.7 % Platelet Count 236 TH/MM3 Mean Platelet Volume 8.8 FL Blood Urea Nitrogen 45 MG/DL Creatinine 3.78 MG/DL Random Glucose 84 MG/DL Calcium Level 8.3 MG/DL Sodium Level 143 MEQ/L Potassium Level 3.6 MEQ/L Chloride Level 105 MEQ/L Carbon Dioxide Level 26.9 MEQ/L Anion Gap 11 MEQ/L Estimat Glomerular Filtration Rate 16 ML/MIN Assessment and Plan Problem List: (1) Non-ST elevation [place] (NSTEMI) ICD Codes: I21.4 - Non-ST elevation [place] (NSTEMI) Status: Acute Plan: No further angina. Cath shows severe 2 vessel CAD including occluded collateralized RCA and severely diseased proximal LAD. EF on echo last week closer to 55%, not 40-45% as reported. REC await CV surgery consult; stent of LAD an option, though high risk, as LAD supplies good collaterals to RCA, unable to place Impella change to oral furosemide (2) Paroxysmal atrial fibrillation ICD Codes: I48.0 - Paroxysmal atrial fibrillation Status: Acute Plan: Remains in NSR. Tolerating oral Amiodarone so far. Reduce dose to 200 mg qd. (3) Aortic stenosis ICD Codes: I35.0 - Nonrheumatic aortic (valve) stenosis Status: Chronic Plan: Severe aortic stenosis by exam and recent echo with mean gradient > 50 mm Hg. Await CV surgery opinion regarding treatment options. Code Status full code Discussed Condition With patient and Problem Qualifiers (1) Aortic stenosis: Qualified Codes: I35.0 - Nonrheumatic aortic (valve) stenosis Pepe Anderson MD Sep 09, 2017 08:19
[2017-09-09] MEDS: DOCUSATE SODIUM 50 MG/SENNA 8.6 MG TAB PO SCH ×2 (09:00→21:16)
[2017-09-09] MEDS: SODIUM CHLORIDE 0.9% FLUSH 10 ML FLUSH IV FLUSH SCH ×2 (09:00→21:00)
[2017-09-09] MEDS: FOLIC ACID 1 MG TAB PO SCH (09:20)
[2017-09-09] MEDS: AMIODARONE 200 MG TAB PO SCH ×2 (09:21→21:16)
[2017-09-09] MEDS: THIAMINE HCL 100 MG TAB PO SCH (09:21)
[2017-09-09] MEDS: FUROSEMIDE 40 MG TAB PO SCH (09:21)
[2017-09-09] MEDS: METOPROLOL SUCCINATE 50 MG EXTENDED RELEASE TAB PO SCH (09:21)
[2017-09-09] MEDS: CHOLECALCIFEROL (VIT D3) 1000 UNIT TAB PO SCH (09:21)
[2017-09-09] MEDS: MULTIVITAMIN TAB PO SCH (09:21)
[2017-09-09] MEDS: PANTOPRAZOLE SOD 40 MG DELAYED RELEASE TAB PO SCH (09:21)
[2017-09-09] MEDS: ASPIRIN EC 81 MG TABEC PO SCH (09:21)
--- NOTE | 2017-09-09 11:58 | HHI.NPPN ---
Subjective History of Present Illness 72-year-old white male with history of hypertension, chronic kidney disease approaching ESRD who developed chest pain and shortness of breath Objective Data Data 09/09/17 09/10/17 18:59 06:59 Intake Total 5 ml Balance 5 ml Blood Product IV Normal Saline Flush 5 ml Vital Signs Date Time Temp Pulse Resp B/P (MAP) Pulse Ox O2 Delivery O2 Flow Rate FiO2 09/09/17 11:37 98.8 72 20 171/69 100 09/09/17 11:16 98.8 77 16 182/77 100 09/09/17 11:00 98.6 79 18 157/58 100 09/09/17 10:44 99.6 75 20 176/72 100 09/09/17 09:00 83 139/79 (99) 100 09/09/17 08:00 98.6 70 124/60 (81) 100 09/09/17 08:00 70 09/09/17 07:59 100 21 09/09/17 04:00 97.9 77 147/66 (93) 99 09/09/17 03:01 66 102/44 (63) 98 09/09/17 03:00 67 98 09/09/17 03:00 67 98 09/09/17 02:01 69 135/59 (84) 99 09/09/17 02:00 69 99 09/09/17 01:36 72 144/76 (98) 99 09/09/17 01:00 71 98 09/09/17 00:00 98.4 74 98 09/08/17 23:07 81 153/65 (94) 99 09/08/17 23:00 81 37 100 09/08/17 23:00 72 09/08/17 22:23 82 18 157/70 (99) 100 09/08/17 20:00 72 09/08/17 16:00 72 24 115/56 (75) 100 09/08/17 16:00 78 09/08/17 15:58 73 26 117/56 (76) 100 09/08/17 12:01 98.4 76 24 86/49 (61) 100 09/08/17 12:00 75 -: 09/09/17 0506 09/09/17 0506 Physical Exam General Appearance: Well Developed, Well Nourished Pulmonary Resp Exam: Crackles, Decreased Bases Cardiology CV Exam: Regular, Normal Sinus Rhythm, Murmur Gastrointestinal/Abdomen GI Exam: Soft, Non-Tender, Bowel Sounds Present Extremeties Extremities Exam: Trace Edema Neurologic Neuro Exam: Alert, Awake, Oriented Assessment/Plan Problem List: (1) Acute renal failure ICD Codes: N17.9 - Acute kidney failure, unspecified Plan: Patient has advanced renal failure on hemodialysis heart catheterization done severe two-vessel coronary artery disease LAD 80% and right coronary artery total occlusion severely AV stenosis Cardiovascular surgery still debating about TAVR and a stent Continue supportive care Hemodialysis next treatment tomorrow Hemoglobin dropped and he received 2 units of packed red blood cell Continue supportive care Await cardiovascular surgical input (2) CKD (chronic kidney disease) stage 4, GFR 15-29 ml/min ICD Codes: N18.4 - Chronic kidney disease, stage 4 (severe) Plan: Patient may have progress to stage V (3) GI bleed ICD Codes: K92.2 - Gastrointestinal hemorrhage, unspecified Status: Acute Plan: Endoscopy plan (4) Anemia ICD Codes: D64.9 - Anemia Status: Acute Plan: Status post blood transfusion (5) ACS (acute coronary syndrome) ICD Codes: I24.9 - Acute ischemic heart disease, unspecified Status: Acute Plan: Cardiology following AMI (6) Hypertension ICD Codes: I10 - Essential (primary) hypertension Plan: Continue to monitor Gaurav Shah MD Sep 09, 2017 11:58
--- NOTE | 2017-09-09 12:22 | HHI.PR ---
Subjective Remarks Patient denies chest pain. Still has mild shortness of breath. Hemoglobin dropped to 6.9 this morning. Objective Vitals Vital Signs Date Time Temp Pulse Resp B/P (MAP) Pulse Ox O2 Delivery O2 Flow Rate FiO2 09/09/17 12:02 98.8 68 18 154/66 99 09/09/17 11:37 98.8 72 20 171/69 100 09/09/17 11:16 98.8 77 16 182/77 100 09/09/17 11:00 98.6 79 18 157/58 100 09/09/17 10:44 99.6 75 20 176/72 100 09/09/17 09:00 83 139/79 (99) 100 09/09/17 08:00 98.6 70 124/60 (81) 100 09/09/17 08:00 70 09/09/17 07:59 100 21 09/09/17 04:00 97.9 77 147/66 (93) 99 09/09/17 03:01 66 102/44 (63) 98 09/09/17 03:00 67 98 09/09/17 03:00 67 98 09/09/17 02:01 69 135/59 (84) 99 09/09/17 02:00 69 99 09/09/17 01:36 72 144/76 (98) 99 09/09/17 01:00 71 98 09/09/17 00:00 98.4 74 98 09/08/17 23:07 81 153/65 (94) 99 09/08/17 23:00 81 37 100 09/08/17 23:00 72 09/08/17 22:23 82 18 157/70 (99) 100 09/08/17 20:00 72 09/08/17 16:00 72 24 115/56 (75) 100 09/08/17 16:00 78 09/08/17 15:58 73 26 117/56 (76) 100 I/O 09/08/17 09/08/17 09/08/17 09/09/17 09/09/17 09/09/17 07:00 15:00 23:00 07:00 15:00 23:00 Intake Total 100 ml 110 ml 618 ml 360 ml 5 ml Output Total 1050 ml 3600 ml 300 ml Balance -950 ml 110 ml -2982 ml 60 ml 5 ml Intake Oral 100 ml 240 ml 120 ml IV Total 110 ml 378 ml 240 ml Blood Product IV Normal Saline Flush 5 ml Output Urine Total 1050 ml 1600 ml 300 ml Hemodialysis 2000 ml # Bowel Movements 0 Result Diagram: 09/09/17 0506 09/09/17 0506 Objective Remarks GENERAL: This is a well-nourished, well-developed patient, in no apparent distress. CARDIOVASCULAR: Normal rate and regular rhythm. 2 out of 6 OMID murmur best heard over the left upper sternal border. RESPIRATORY: Good respiratory efforts. Diminished breath sounds at the bases. Otherwise breath sounds equal and clear to auscultation bilaterally. GASTROINTESTINAL: Abdomen soft, non-tender, non-distended. Normal active bowel sounds MUSCULOSKELETAL: Extremities without cyanosis, or edema. NEURO: Alert & Oriented x4 to person, place, time, situation. Moves all ext x4 PSYCH: Appropriate mood and affect. A/P Assessment and Plan 72-year-old male with a medical history significant for coronary artery disease , [place], stage IV kidney disease, and aortic insufficiency with aortic stenosis who presented to [place] with unremitting chest pain. The patient was seen back in March 2017 for similar. He was scheduled to have a cardiac cath done but was canceled due to his renal function. At that time the patient was also evaluated by cardiothoracic surgery for aortic valve replacement, but it was determined the patient would need to undergo a cardiac cath in order to have this procedure. The patient's EKG was abnormal upon admission to the hospital. Dr. Damian was contacted and was started on heparin. Patient also found to be significantly anemic and was Hemoccult-positive. NSTEMI CAD Paroxysmal a-fif Aortic Stenosis HTN - Norvasc 10 mg p.o. daily, metoprolol succinate 50 mg p.o. daily, aspirin 81 mg p.o. daily - Amiodarone 400 mg p.o. every 12 hours (discharge dose will be 200 mg daily) -Cardiology following, Dr. Anderson. Cath shows severe 2 vessel CAD including occluded collateralized RCA and severely diseased proximal LAD. EF on echo last week closer to 55%, not 40-45% as reported. - Await CV surgery consult -Avoid nitrates and BALTAZAR inhibitors due to severe aortic stenosis. Severe Anemia -Likely due to GI bleed in the setting of anemia of chronic disease due to kidney disease -EGD on September 04 showed gastritis, pathology pending. Per Dr. Baez no plans for colonoscopy. -Patient cleared for antiplatelet, anticoagulation for X Ray Nurse -H&H is still low today and he is symptomatic. Will give additional 2 units of PRBC today. -Iron sucrose per nephrology -Epogen 1000 units IV with hemodialysis per nephrology End-stage renal disease -being followed by Dr. Shah -Vas-Cath placed by IR on September 05, initiated hemodialysis - Eventual plan for PD by general surgery however Tenckhoff catheter placement deferred until stabilized from cardiac standpoint, likely at some point after TAVR. Discharge Planning Continue care in the ICU. Awaiting further input from cardiovascular surgery. Darby Granados MD Sep 09, 2017 12:22
--- NOTE | 2017-09-09 17:08 | PD.CAR.PN ---
CVT Progress Note Subjective/Hospital Course: pt seen and evaluated full consult dictated / sts data reviewed with pt RISK SCORES About the STS Risk Calculator Procedure: AV Replacement + CAB Risk of Mortality: 11.081% Morbidity or Mortality: 44.507% Long Length of Stay: 29.233% Short Length of Stay: 8.234% Permanent Stroke: 2.794% Prolonged Ventilation: 34.613% DSW Infection: 1.321% Renal Failure: N/A Reoperation: 15.55% Objective: Vital Signs Date Time Temp Pulse Resp B/P (MAP) Pulse Ox O2 Delivery O2 Flow Rate FiO2 09/09/17 14:37 98.8 70 18 161/66 100 09/09/17 14:18 98.6 74 20 164/70 100 09/09/17 14:03 98.8 75 16 158/67 100 09/09/17 13:00 78 178/74 (108) 100 09/09/17 12:02 98.8 68 18 154/66 99 09/09/17 12:00 69 09/09/17 12:00 98.8 69 154/66 (95) 100 09/09/17 11:37 98.8 72 20 171/69 100 09/09/17 11:16 98.8 77 16 182/77 100 09/09/17 11:00 98.6 79 18 157/58 100 09/09/17 10:44 99.6 75 20 176/72 100 09/09/17 09:00 83 139/79 (99) 100 09/09/17 08:00 98.6 70 124/60 (81) 100 09/09/17 08:00 70 09/09/17 07:59 100 21 09/09/17 04:00 97.9 77 147/66 (93) 99 09/09/17 03:01 66 102/44 (63) 98 09/09/17 03:00 67 98 09/09/17 03:00 67 98 09/09/17 02:01 69 135/59 (84) 99 09/09/17 02:00 69 99 09/09/17 01:36 72 144/76 (98) 99 09/09/17 01:00 71 98 09/09/17 00:00 98.4 74 98 09/08/17 23:07 81 153/65 (94) 99 09/08/17 23:00 81 37 100 09/08/17 23:00 72 09/08/17 22:23 82 18 157/70 (99) 100 09/08/17 20:00 72 Result Diagram: 09/09/17 0506 09/09/17 0506 (1) Non-ST elevation [place] (NSTEMI) Plan: No further angina. Cath shows severe 2 vessel CAD including occluded collateralized RCA and severely diseased proximal LAD. EF on echo last week closer to 55%, not 40-45% as reported. REC await CV surgery consult; stent of LAD an option, though high risk, as LAD supplies good collaterals to RCA, unable to place Impella change to oral furosemide (2) Paroxysmal atrial fibrillation Plan: Remains in NSR. Tolerating oral Amiodarone so far. Reduce dose to 200 mg qd. (3) Aortic stenosis Plan: Severe aortic stenosis by exam and recent echo with mean gradient > 50 mm Hg. Await CV surgery opinion regarding treatment options. Problem Qualifiers (1) Aortic stenosis: Qualified Codes: I35.0 - Nonrheumatic aortic (valve) stenosis Rossy Weaver Sep 09, 2017 17:08
--- NOTE | 2017-09-09 17:43 | MB ---
cc: Rossy Weaver Jacqueline R ARNP DATE: 09/09/2017 HISTORY OF PRESENT ILLNESS: A 72-year-old patient followed by Dr. Katlyn Tidwell who we actually saw in full detail and dictated a consultation noted on 04/04/2017. At that time, the patient was electively admitted for possible heart catheterization. He was being worked up at that time for carpal tunnel surgery and needed cardiac clearance. At that time, his aortic valve area was 0.7 and recommendation was to undergo cardiac cath to be evaluated for possible TAVR candidate. However, due to his elevated creatinine, they held off on the cardiac cath at that time. He also had a recent history of severe anemia and was transfused, had undergone colonoscopy which showed again gastritis. On this admission, again was found to be severely anemic and has received blood transfusions of 5 units since admission. He underwent EGD with biopsy on 09/04 which showed gastritis in the gastric antrum. Multiple biopsies were done. Recommendation was to continue her proton pump inhibitor. Creatinine on admission was 5.21. He has since had a vas cath placed on the right internal jugular and he has had dialysis treatment and then he underwent a cardiac catheterization by Dr. Anderson. The LAD showed a proximal LAD of 80%, the RCA was totally occluded in the mid portion and there were good left to right collaterals. Echocardiogram showed an EF of 55%, aortic valve area of 0.74, moderate mitral regurgitation. We were consulted again at this time to evaluate for coronary artery bypass graft x2 and aortic valve replacement. PAST MEDICAL HISTORY: The patient has significant past medical history of prior non-ST segment [place], which was related to the initial time of severe anemia in 2013 with repeat elevated troponins on this admission of 28. Aortic insufficiency, aortic stenosis, chronic kidney disease stage IV, COPD, hyperlipidemia, hypertension, mild mitral regurgitation, morbid obesity with a BMI of 34, obstructive sleep apnea, spinal stenosis nonsurgical. PAST SURGICAL HISTORY: Include appendectomy, right carpal tunnel surgery. He has had a vas cath placed. He has undergone cardiac catheterization. ALLERGIES: HE HAS NO KNOWN ALLERGIES. CURRENT MEDICATIONS: 1. Amlodipine. 2. Atorvastatin. 3. Losartan. 4. Metoprolol. 5. Tylenol. FAMILY HISTORY: Father at 59 from an [place]. Mother with failure to thrive at 81. SOCIAL HISTORY: The patient is , 2 children, retired from the [email or web address]. He continues to smoke 1 pack for the last 30 years. Drinks 2 glasses of wine or whiskey daily. REVIEW OF SYSTEMS: GENERAL: No night sweats, fever, heat and cold intolerance. SKIN: No psoriasis, itching or hives. HEENT: No blurred vision, hearing loss. RESPIRATORY: Positive for chronic shortness of breath with minimal exertion. CARDIOVASCULAR: He has had recent chest pressure. GASTROINTESTINAL: No diarrhea or vomiting. GENITOURINARY: No burning, frequency, urgency. CENTRAL NERVOUS SYSTEM: No history of TIA, CVA or seizure disorder. ENDOCRINOLOGY: No history of diabetes or hypothyroidism. PHYSICAL EXAMINATION: VITAL SIGNS: Blood pressure 160/66, heart rate of 70, temp max 98.8. GENERAL: The patient is awake, alert, no acute distress. HEENT: Head is normocephalic, atraumatic. Pupils equal and reactive. Oral mucosa pink, moist. NECK: Supple. No JVD. He has a right IJ hemodialysis catheter or vas-cath. HEART: Sounds S1, S2. Regular rate and rhythm. There is a grade 3/6 systolic murmur best noted at the left sternal border. LUNGS: Diminished in the bases, otherwise, clear to auscultation. ABDOMEN: Obese, soft, nontender. No masses or organomegaly. EXTREMITIES: No cyanosis, clubbing, or edema. LABORATORY DATA: Shows hemoglobin 6.9, hematocrit of 20. He is receiving blood transfusion at this time. White cell count of 10, platelet count of 236. Sodium 143, potassium 3.9, BUN of 66, creatinine 4.46. Troponin was as high as 28, AST 80, ALT 28, INR 1.0. MRSA nondetected. Hep panel negative. IMAGING STUDIES: Chest x-ray on 09/04: Cardiomegaly with minimal basilar atelectasis. ASSESSMENT AND PLAN: A 71-year-old male now with coronary artery disease, 2-vessel LAD and RCA, ejection fraction of 55%, was evaluated back in March for transcatheter aortic valve replacement and, at that time, had a fragility score of 3/4. FEV1 of 1.19. Also multiple comorbidities as discussed above. He has a risk of mortality of 11. The patient will be evaluated further with Dr. Peralta and decision regarding PCI to the LAD and evaluation for transcatheter aortic valve replacement. FERCHO Shi MD JRT/ , 05:17 PM , 05:43 PM
[2017-09-09] MEDS: ATORVASTATIN 80 MG TAB PO SCH (21:16)
[2017-09-09 21:38] LABS: HEMOGLOBIN 8.9 GM/DL (13.0-17.0)
[2017-09-09] MEDS: SODIUM CHLOR 0.9% 1000 ML INJ 1,000 ML IV SCH (23:21)
[2017-09-10] VITALS (30 sets, daily range): BP systolic 107–135; BP diastolic 58–68; PULSE 47–92; RESP 16–20; TEMP 97.9–98.8; O2SAT 96–100
[2017-09-10] MEDS: CHLORHEXIDINE GLUCONATE 2 % 1 PACK (2 CLOTHS) TOP SCH (04:00)
[2017-09-10 07:03] LABS: HEMATOCRIT 23.8 % (39.0-51.0); HEMOGLOBIN 7.9 GM/DL (13.0-17.0); MEAN CELL VOLUME 82.3 FL (80.0-100.0); MEAN CORPUSCULAR HEMOGLOBIN 27.3 PG (27.0-34.0); MEAN CORPUSCULAR HGB CONC 33.2 % (32.0-36.0); MEAN PLATELET VOLUME 8.9 FL (7.0-11.0); PLATELET COUNT 211 TH/MM3 (150-450); RED BLOOD COUNT 2.89 MIL/MM3 (4.50-5.90); RED CELL DISTRIBUTION WIDTH 17.9 % (11.6-17.2)
[2017-09-10 07:19] LABS: BICARBONATE 24.9 MEQ/L (21.0-32.0); CALCIUM 8.7 MG/DL (8.5-10.1); CREATININE 4.72 MG/DL (0.60-1.30)
[2017-09-10] MEDS: ALBUMIN 25% INJ 100 ML IV PRN ×2 (08:52→09:17)
[2017-09-10] MEDS: GENTAMICIN SULFATE 20 MG/2 ML VIAL OTHER PRN (08:53)
[2017-09-10] MEDS: HEPARIN SODIUM - IV 10,000 UNITS/10 ML VIAL PRN (08:53)
[2017-09-10] MEDS: SODIUM CHLORIDE 0.9% FLUSH 10 ML FLUSH IV FLUSH SCH ×2 (09:00→20:43)
--- NOTE | 2017-09-10 11:34 | HHI.NPPN ---
Subjective History of Present Illness 72-year-old white male with history of hypertension, chronic kidney disease approaching ESRD who developed chest pain and shortness of breath Objective Data Data 09/10/17 09/11/17 19:00 07:00 Intake Total 200 ml Balance 200 ml IV Total 200 ml Vital Signs Date Time Temp Pulse Resp B/P (MAP) Pulse Ox O2 Delivery O2 Flow Rate FiO2 09/10/17 08:00 97.9 72 16 115/66 (82) 100 09/10/17 06:00 70 09/10/17 05:00 66 09/10/17 04:00 70 09/10/17 03:01 98.1 71 20 128/64 (85) 98 09/10/17 03:00 69 09/10/17 02:00 68 09/10/17 01:00 69 09/10/17 00:00 68 09/09/17 23:36 98.1 69 20 151/70 (97) 99 09/09/17 23:00 69 09/09/17 22:00 74 09/09/17 21:00 74 09/09/17 20:01 97.8 77 20 125/63 (83) 100 09/09/17 20:00 77 09/09/17 19:00 83 09/09/17 17:00 74 158/72 (100) 100 09/09/17 16:00 79 09/09/17 16:00 98.6 79 174/95 (121) 100 09/09/17 14:37 98.8 70 18 161/66 100 09/09/17 14:18 98.6 74 20 164/70 100 09/09/17 14:03 98.8 75 16 158/67 100 09/09/17 13:00 78 178/74 (108) 100 09/09/17 12:02 98.8 68 18 154/66 99 09/09/17 12:00 69 09/09/17 12:00 98.8 69 154/66 (95) 100 09/09/17 11:37 98.8 72 20 171/69 100 -: 09/10/17 0548 09/10/17 0548 Physical Exam General Appearance: Well Developed, Well Nourished Pulmonary Resp Exam: Crackles, Decreased Bases Cardiology CV Exam: Regular, Normal Sinus Rhythm, Murmur Gastrointestinal/Abdomen GI Exam: Soft, Non-Tender, Bowel Sounds Present Extremeties Extremities Exam: Trace Edema Neurologic Neuro Exam: Alert, Awake, Oriented Assessment/Plan Problem List: (1) Acute renal failure ICD Codes: N17.9 - Acute kidney failure, unspecified Plan: Patient has advanced renal failure on hemodialysis heart catheterization done severe two-vessel coronary artery disease LAD 80% and right coronary artery total occlusion severely AV stenosis Cardiovascular surgery still debating about TAVR and a stent Continue supportive care Hemodialysis seen during treatment 3 L UF Continue supportive care Await cardiovascular surgical input (2) CKD (chronic kidney disease) stage 4, GFR 15-29 ml/min ICD Codes: N18.4 - Chronic kidney disease, stage 4 (severe) Plan: Patient may have progress to stage V (3) GI bleed ICD Codes: K92.2 - Gastrointestinal hemorrhage, unspecified Status: Acute Plan: Endoscopy plan (4) Anemia ICD Codes: D64.9 - Anemia Status: Acute Plan: Status post blood transfusion (5) ACS (acute coronary syndrome) ICD Codes: I24.9 - Acute ischemic heart disease, unspecified Status: Acute Plan: Cardiology following AMI (6) Hypertension ICD Codes: I10 - Essential (primary) hypertension Plan: Continue to monitor Gaurav Shah MD Sep 10, 2017 11:34
[2017-09-10] MEDS: EPOETIN ALFA 10,000 UNITS/ML VIAL IV PUSH PRN (11:42)
--- NOTE | 2017-09-10 12:20 | PD.CAR.PN ---
CVT Progress Note Subjective/Hospital Course: 72-year-old patient followed by Dr. Katlyn Tidwell, hx of aortic stenosis. Was seen initially on 04/04/2017, He was being worked up at that time for carpal tunnel surgery and needed cardiac clearance. Due to his sever , they recommended possible TAVR and needed heart cath , however due to his elevated creatinine kidney failure , they held off on the cardiac cath at that time. He also had a recent history of severe anemia and was transfused, had undergone colonoscopy which showed again gastritis. On this admission, again was found to be severely anemic and has received blood transfusions of 5 units since admission. He underwent EGD with biopsy on 09/04 which showed gastritis in the gastric antrum. His Creatinine on admission was 5.21. He has since had a vas cath placed and has undergone dialysis. He was then able to undergo cardiac catheterization by Dr. Anderson. The LAD showed a proximal LAD of 80%, the RCA was totally occluded in the mid portion and there were good left to right collaterals. Echocardiogram showed an EF of 55%, aortic valve area of 0.74, moderate mitral regurgitation. We were consulted to evaluate for coronary artery bypass graft x2 and aortic valve replacement. PAST MEDICAL HISTORY: history of prior non-ST segment FL, which was related to the initial time of severe anemia in 2013 with repeat elevated troponins on this admission of 28. Aortic insufficiency, aortic stenosis, chronic kidney disease stage IV, COPD, hyperlipidemia, hypertension, mild mitral regurgitation , morbid obesity with a BMI of 34, obstructive sleep apnea, spinal stenosis nonsurgical. 09/10 pt currently undergoing dialysis treatment await decision as per surgical decision regarding high risk PCI/ then TAVR or conventional CABG x 2 with AVR STS risk score is 11 pt has since been transferred out of the ICU to [facility] will order PT/OT Objective: GENERAL: A&o x 3 SKIN: Warm and dry. right arm with significant ecchymosis / bruising HEAD: Normocephalic. EYES: No scleral icterus. No injection or drainage. NECK: Supple, trachea midline. No JVD or lymphadenopathy. CARDIOVASCULAR: Regular rate and rhythm 3/6 sm t murmurs, gallops, or rubs. RESPIRATORY: Breath sounds equal bilaterally. No accessory muscle use. few crackles in bases GASTROINTESTINAL: Abdomen soft, non-tender, nondistended. MUSCULOSKELETAL: No cyanosis, or edema. BACK: Nontender without obvious deformity. No CVA tenderness. Vital Signs Date Time Temp Pulse Resp B/P (MAP) Pulse Ox O2 Delivery O2 Flow Rate FiO2 09/10/17 08:00 97.9 72 16 115/66 (82) 100 09/10/17 06:00 70 09/10/17 05:00 66 09/10/17 04:00 70 09/10/17 03:01 98.1 71 20 128/64 (85) 98 09/10/17 03:00 69 09/10/17 02:00 68 09/10/17 01:00 69 09/10/17 00:00 68 09/09/17 23:36 98.1 69 20 151/70 (97) 99 09/09/17 23:00 69 09/09/17 22:00 74 09/09/17 21:00 74 09/09/17 20:01 97.8 77 20 125/63 (83) 100 09/09/17 20:00 77 09/09/17 19:00 83 09/09/17 17:00 74 158/72 (100) 100 09/09/17 16:00 79 09/09/17 16:00 98.6 79 174/95 (121) 100 09/09/17 14:37 98.8 70 18 161/66 100 09/09/17 14:18 98.6 74 20 164/70 100 09/09/17 14:03 98.8 75 16 158/67 100 09/09/17 13:00 78 178/74 (108) 100 09/09/17 12:02 98.8 68 18 154/66 99 09/09/17 12:00 69 09/09/17 12:00 98.8 69 154/66 (95) 100 Labs: Laboratory Tests Test 09/10/17 05:48 White Blood Count 12.0 TH/MM3 (4.0-11.0) Red Blood Count 2.89 MIL/MM3 (4.50-5.90) Hemoglobin 7.9 GM/DL (13.0-17.0) Hematocrit 23.8 % (39.0-51.0) Mean Corpuscular Volume 82.3 FL (80.0-100.0) Mean Corpuscular Hemoglobin 27.3 PG (27.0-34.0) Mean Corpuscular Hemoglobin Concent 33.2 % (32.0-36.0) Red Cell Distribution Width 17.9 % (11.6-17.2) Platelet Count 211 TH/MM3 (150-450) Mean Platelet Volume 8.9 FL (7.0-11.0) Blood Urea Nitrogen 68 MG/DL (7-18) Creatinine 4.72 MG/DL (0.60-1.30) Random Glucose 95 MG/DL (74-106) Calcium Level 8.7 MG/DL (8.5-10.1) Sodium Level 140 MEQ/L (136-145) Potassium Level 3.6 MEQ/L (3.5-5.1) Chloride Level 104 MEQ/L (98-107) Carbon Dioxide Level 24.9 MEQ/L (21.0-32.0) Anion Gap 11 MEQ/L (5-15) Estimat Glomerular Filtration Rate 12 ML/MIN (>89) Result Diagram: 09/10/17 0548 09/10/17 0548 Telemetry: NSr (1) Non-ST elevation FL (NSTEMI) Plan: No further angina. Cath shows severe 2 vessel CAD including occluded collateralized RCA and severely diseased proximal LAD. EF 55%, Dr Peralta to discuss options today with Dr Pepe Anderson regarding stenting of LAD / then eval for TAVR (2) Paroxysmal atrial fibrillation Plan: Remains in NSR. Tolerating oral Amiodarone so far. Reduce dose to 200 mg qd. (3) Aortic stenosis Plan: Severe aortic stenosis by exam and recent echo with mean gradient > 50 mm Hg. Problem Qualifiers (1) Aortic stenosis: Qualified Codes: I35.0 - Nonrheumatic aortic (valve) stenosis Rossy Weaver Sep 10, 2017 12:20
[2017-09-10] MEDS: THIAMINE HCL 100 MG TAB PO SCH (12:30)
[2017-09-10] MEDS: MULTIVITAMIN TAB PO SCH (12:30)
[2017-09-10] MEDS: DOCUSATE SODIUM 50 MG/SENNA 8.6 MG TAB PO SCH ×2 (12:30→20:43)
[2017-09-10] MEDS: METOPROLOL SUCCINATE 50 MG EXTENDED RELEASE TAB PO SCH (12:30)
[2017-09-10] MEDS: PANTOPRAZOLE SOD 40 MG DELAYED RELEASE TAB PO SCH (12:31)
[2017-09-10] MEDS: CHOLECALCIFEROL (VIT D3) 1000 UNIT TAB PO SCH (12:31)
[2017-09-10] MEDS: ASPIRIN EC 81 MG TABEC PO SCH (12:31)
[2017-09-10] MEDS: AMIODARONE 200 MG TAB PO SCH (12:32)
[2017-09-10] MEDS: FUROSEMIDE 40 MG TAB PO SCH (12:32)
[2017-09-10] MEDS: FOLIC ACID 1 MG TAB PO SCH (12:32)
--- NOTE | 2017-09-10 13:35 | HHI.PR ---
Subjective Remarks Patient doing well today. No complaints. Trend in hemoglobin from 6.9 to 8.9 yesterday after transfusion. Down to 7.9 this morning. Patient recalls no active bleed. Objective Vital Signs Date Time Temp Pulse Resp B/P (MAP) Pulse Ox O2 Delivery O2 Flow Rate FiO2 09/10/17 13:00 76 09/10/17 12:28 98.7 84 16 108/66 (80) 100 09/10/17 12:00 70 09/10/17 11:00 73 09/10/17 10:00 68 09/10/17 09:00 68 09/10/17 08:00 92 09/10/17 08:00 97.9 72 16 115/66 (82) 100 09/10/17 07:00 69 09/10/17 06:00 70 09/10/17 05:00 66 09/10/17 04:00 70 09/10/17 03:01 98.1 71 20 128/64 (85) 98 09/10/17 03:00 69 09/10/17 02:00 68 09/10/17 01:00 69 09/10/17 00:00 68 09/09/17 23:36 98.1 69 20 151/70 (97) 99 09/09/17 23:00 69 09/09/17 22:00 74 09/09/17 21:00 74 09/09/17 20:01 97.8 77 20 125/63 (83) 100 09/09/17 20:00 77 09/09/17 19:00 83 09/09/17 17:00 74 158/72 (100) 100 09/09/17 16:00 79 09/09/17 16:00 98.6 79 174/95 (121) 100 09/09/17 14:37 98.8 70 18 161/66 100 09/09/17 14:18 98.6 74 20 164/70 100 09/09/17 14:03 98.8 75 16 158/67 100 I/O 09/09/17 09/09/17 09/09/17 09/10/17 09/10/17 09/10/17 07:00 15:00 23:00 07:00 15:00 23:00 Intake Total 360 ml 435 ml 1150 ml 480 ml 200 ml Output Total 300 ml 750 ml 500 ml 3000 ml Balance 60 ml 435 ml 400 ml -20 ml -2800 ml Intake Oral 120 ml 750 ml 480 ml IV Total 240 ml 200 ml Packed Cells 400 ml 400 ml Blood Product IV Normal Saline Flush 35 ml Output Urine Total 300 ml 750 ml 500 ml Hemodialysis 3000 ml # Bowel Movements 0 Result Diagram: 09/10/1754709/10/17547 Objective Remarks GENERAL: NAD, A&Ox3 HEAD: Normocephalic. NECK: Supple, trachea midline. No lymphadenopathy. EYES: No scleral icterus. No injection or drainage. CARDIOVASCULAR: Regular rate and rhythm without murmurs, gallops, or rubs. RESPIRATORY: Breath sounds equal bilaterally. No accessory muscle use. GASTROINTESTINAL: Abdomen soft, non-tender, nondistended. MUSCULOSKELETAL: No cyanosis, or edema. SKIN: Warm and dry. NEURO: No focal neurological deficitis. A/P Problem List: (1) GI bleed ICD Code: K92.2 - Gastrointestinal hemorrhage, unspecified Status: Acute (2) Anemia ICD Code: D64.9 - Anemia Status: Acute (3) Atrial fibrillation ICD Code: I48.91 - Unspecified atrial fibrillation Status: Acute (4) ACS (acute coronary syndrome) ICD Code: I24.9 - Acute ischemic heart disease, unspecified Status: Acute Assessment and Plan 72-year-old male admitted secondary to chest pain status post NSTEMI. chronic kidney disease present at baseline. NSTEMI CAD Paroxysmal a-fif Aortic Stenosis HTN Plan for TVAR versus open AVR Continue Norvasc Continue metoprolol Continue aspirin Continue amiodarone Cardiology following Follow on telemetry Severe Anemia Recurrent GI bleed Plan for colonoscopy Monitor H&H and transfuse as needed Continue iron supplement Continue Epogen End-stage renal disease Nephrology following Continue dialysis Haris Isabel MD Sep 10, 2017 13:35
[2017-09-10] MEDS: IRON SUCROSE INJ 100 MG in SODIUM CHLORIDE 0.9% INJ 100 ML IV SCH (15:30)
--- NOTE | 2017-09-10 16:57 | MB ---
cc: Roldan Pryor MD DATE: 09/10/2017 REASON FOR CONSULTATION: For transcatheter aortic valve replacement. DIAGNOSIS: Severe aortic valve stenosis. HISTORY OF PRESENT ILLNESS: This is a 72-year-old gentleman who has a long complicated hospital stay. He has history of coronary artery disease, myocardial infarction, and stage IV chronic kidney disease on dialysis. He also has aortic stenosis and insufficiency with severe COPD. He presented with anemia. He was found to have a hemoglobin of 5.5 and received 2 units of packed red blood cells upon arrival. During the hospitalization, he underwent an upper endoscopy which revealed gastritis. He required 8 units of packed red blood cells since his hospitalization. His hemoglobin has been labile. He underwent cardiac catheterization on 09/08/[address] Anderson which revealed severe left anterior descending coronary artery stenosis at the bifurcation with diagonal branch, in addition to occluded right coronary artery which was collateralized. Cardiothoracic Surgery was consulted for consideration of aortic valve replacement and coronary bypass surgery. Given his comorbidities and high risk, we were consulted for consideration of transcatheter aortic valve replacement and percutaneous coronary intervention as an alternative. PAST MEDICAL HISTORY: Non-ST segment elevation myocardial infarction, severe anemia, aortic insufficiency, aortic stenosis, chronic kidney disease, COPD, hyperlipidemia, hypertension, mitral regurgitation, morbid obesity, obstructive sleep apnea. SOCIAL HISTORY: Denies any alcohol, tobacco or drug use. FAMILY HISTORY: Denies nay family history of early coronary artery disease or sudden cardiac . REVIEW OF SYSTEMS: A 12-point review of systems was performed, negative unless otherwise noted in the History Of Present Illness. PHYSICAL EXAMINATION: VITAL SIGNS: Temperature is 98, pulse 76, blood pressure 108/66 mmHg. GENERAL: Alert and oriented x 3, no acute distress. HEENT: Shows pupils reactive to light and accommodation. Extraocular movements are intact. NECK: No elevation of jugular venous distention. No thyromegaly, no lymphadenopathy. No carotid bruits. LUNGS: Clear to auscultation bilaterally. CARDIOVASCULAR: Regular. There is a 4/6 crescendo decrescendo high-pitched murmur at the right sternal border. ABDOMINAL EXAM: Nontender, nondistended. Good bowel sounds. No hepatosplenomegaly. EXTREMITIES: No clubbing, cyanosis or edema.. Good peripheral pulses. NEUROLOGIC: Cranial nerves intact. Motor and sensory grossly intact. LABORATORY DATA: WBC 12.3, hemoglobin 7.9 but was low at 6.9 just recently on 09/09/2017. His platelet count is 211. INR is 1.0. Sodium 140, potassium 3.6, BUN 68, creatinine 4.72. Troponin peaked at 28.0. ASSESSMENT: 1. Severe aortic valve stenosis. 2. End-stage renal disease on hemodialysis. 3. Severe anemia. PLAN: The patient is symptomatic with aortic stenosis and has non-ST elevation myocardial infarction with severe underlying coronary disease. He was evaluated by Cardiothoracic Surgery, but felt to be high risk for surgical aortic valve replacement. His coronary anatomy is potentially approachable percutaneously. His right coronary artery is collateralized. The left anterior descending coronary stenosis is tubular and approachable percutaneously but there is a bifurcation of a diagonal branch, which we would have to be careful not to occlude. In addition, the patient has severe aortic stenosis and no reserve given the occlusion of the right coronary artery and dependency of the left anterior descending coronary artery system. It is at higher risk for percutaneous intervention, but potentially approachable. The concern with percutaneous intervention really is his recent severe anemia. He does have chronic kidney disease on Epogen and iron, but his acute drops in his hemoglobin with his positive guaiac would suggest a gastrointestinal source is still present. He has required still quite a bit of blood transfusion since arrival. I would hesitate to do any sort of intervention such as stenting or transcatheter aortic valve replacement, which would mandate a short period, at least a month or 2 of Plavix therapy in the setting of a GI bleed. I think we need to ask Dr. Willis with Gastroenterology to come back and further evaluate the need for upper endoscopy and a colonoscopy in addition to possible small bowel capsule endoscopy. Once we have identified a potential source or he shows that there is no further bleeding with stabilization of his hemoglobin, we can move forward with percutaneous intervention followed by transcatheter aortic valve replacement. I am available for questions, although Dr. Anderson is the primary railroad emergency services manager following. I will follow remotely with TAVR coordinator. MD OMID Velazquez/BRYSON , 04:26 PM , 04:54 PM
[2017-09-10] MEDS: ATORVASTATIN 80 MG TAB PO SCH (20:43)
[2017-09-10] MEDS: SODIUM CHLOR 0.9% 1000 ML INJ 1,000 ML IV SCH (23:21)
[2017-09-11] VITALS (32 sets, daily range): BP systolic 110–149; BP diastolic 55–84; PULSE 61–90; RESP 16–20; TEMP 97.7–99; O2SAT 97–100
[2017-09-11] MEDS: CHLORHEXIDINE GLUCONATE 2 % 1 PACK (2 CLOTHS) TOP SCH (04:00)
[2017-09-11 07:06] LABS: AUTOMATED NEUTROPHIL # 7.6 TH/MM3 (1.8-7.7); BASOPHIL # 0.1 TH/MM3 (0-0.2); BASOPHIL % 0.7 % (0.0-2.0); EOSINOPHIL # 0.2 TH/MM3 (0-0.4); EOSINOPHIL % 2.1 % (0.0-4.0); HEMATOCRIT 24.1 % (39.0-51.0); HEMOGLOBIN 8.1 GM/DL (13.0-17.0); LYMPHOCYTE # 0.9 TH/MM3 (1.0-4.8); MEAN CELL VOLUME 84.9 FL (80.0-100.0); MEAN CORPUSCULAR HEMOGLOBIN 28.5 PG (27.0-34.0); MEAN CORPUSCULAR HGB CONC 33.6 % (32.0-36.0); MEAN PLATELET VOLUME 8.9 FL (7.0-11.0); MONO % 12.4 % (0.0-8.0); MONOCYTE # 1.2 TH/MM3 (0-0.9); NEUT % 75.8 % (16.0-70.0); PLATELET COUNT 218 TH/MM3 (150-450); RED BLOOD COUNT 2.84 MIL/MM3 (4.50-5.90); RED CELL DISTRIBUTION WIDTH 18.5 % (11.6-17.2); WHITE BLOOD COUNT 10.1 TH/MM3 (4.0-11.0)
[2017-09-11 07:15] LABS: ALBUMIN 3.3 GM/DL (3.4-5.0); AST (GOT) 26 U/L (15-37); BLOOD UREA NITROGEN 48 MG/DL (7-18); CALCIUM 8.7 MG/DL (8.5-10.1); CHLORIDE 101 MEQ/L (98-107); CREATININE 4.25 MG/DL (0.60-1.30); GLOMERULAR FILTRATION RATE 14 ML/MIN (>89); GLUCOSE,RANDOM 94 MG/DL (74-106); SODIUM (NA) 141 MEQ/L (136-145)
[2017-09-11 07:19] LABS: ALKALINE PHOSPHATASE 60 U/L (45-117); ALT (GPT) 22 U/L (12-78); TOTAL BILIRUBIN ADULT 0.7 MG/DL (0.2-1.0); TOTAL PROTEIN 5.9 GM/DL (6.4-8.2)
--- NOTE | 2017-09-11 07:53 | PD.CAR.PN ---
CVT Progress Note Subjective/Hospital Course: 72-year-old patient followed by Dr. Katlyn Tidwell, hx of aortic stenosis. Was seen initially on 04/04/2017, He was being worked up at that time for carpal tunnel surgery and needed cardiac clearance. Due to his sever , they recommended possible TAVR and needed heart cath , however due to his elevated creatinine kidney failure , they held off on the cardiac cath at that time. He also had a recent history of severe anemia and was transfused, had undergone colonoscopy which showed again gastritis. On this admission, again was found to be severely anemic and has received blood transfusions of 5 units since admission. He underwent EGD with biopsy on 09/04 which showed gastritis in the gastric antrum. His Creatinine on admission was 5.21. He has since had a vas cath placed and has undergone dialysis. He was then able to undergo cardiac catheterization by Dr. Anderson. The LAD showed a proximal LAD of 80%, the RCA was totally occluded in the mid portion and there were good left to right collaterals. Echocardiogram showed an EF of 55%, aortic valve area of 0.74, moderate mitral regurgitation. We were consulted to evaluate for coronary artery bypass graft x2 and aortic valve replacement. PAST MEDICAL HISTORY: history of prior non-ST segment FL, which was related to the initial time of severe anemia in 2013 with repeat elevated troponins on this admission of 28. Aortic insufficiency, aortic stenosis, chronic kidney disease stage IV, COPD, hyperlipidemia, hypertension, mild mitral regurgitation , morbid obesity with a BMI of 34, obstructive sleep apnea, spinal stenosis nonsurgical. 09/10 pt currently undergoing dialysis treatment await decision as per surgical decision regarding high risk PCI/ then TAVR or conventional CABG x 2 with AVR STS risk score is 11 pt has since been transferred out of the ICU to [facility] will order PT/OT 09/11 Given his high-risk profile and significant medical comorbidities he will be best served with PCI to the LAD followed by TAVR therapy. Will have Dr. Pryor see pt for PCI. Objective: Vital Signs Date Time Temp Pulse Resp B/P (MAP) Pulse Ox O2 Delivery O2 Flow Rate FiO2 09/11/17 06:00 80 09/11/17 05:00 76 09/11/17 04:00 74 09/11/17 03:10 98.3 81 20 126/66 (86) 100 09/11/17 03:00 77 09/11/17 02:00 80 09/11/17 01:00 75 09/11/17 00:00 61 09/10/17 23:09 98.6 82 20 123/59 (80) 99 09/10/17 23:00 81 09/10/17 22:00 82 09/10/17 21:00 76 09/10/17 20:25 98.8 69 20 135/68 (90) 96 09/10/17 20:00 47 09/10/17 19:00 81 09/10/17 18:00 76 09/10/17 17:21 99 21 09/10/17 17:00 76 09/10/17 16:28 98.6 79 18 107/58 (74) 100 09/10/17 16:00 87 09/10/17 15:00 91 09/10/17 14:00 90 09/10/17 13:00 76 09/10/17 12:28 98.7 84 16 108/66 (80) 100 09/10/17 12:00 70 09/10/17 11:00 73 09/10/17 10:00 68 09/10/17 09:00 68 09/10/17 08:00 92 09/10/17 08:00 97.9 72 16 115/66 (82) 100 Labs: Laboratory Tests Test 09/11/17 05:26 White Blood Count 10.1 TH/MM3 (4.0-11.0) Red Blood Count 2.84 MIL/MM3 (4.50-5.90) Hemoglobin 8.1 GM/DL (13.0-17.0) Hematocrit 24.1 % (39.0-51.0) Mean Corpuscular Volume 84.9 FL (80.0-100.0) Mean Corpuscular Hemoglobin 28.5 PG (27.0-34.0) Mean Corpuscular Hemoglobin Concent 33.6 % (32.0-36.0) Red Cell Distribution Width 18.5 % (11.6-17.2) Platelet Count 218 TH/MM3 (150-450) Mean Platelet Volume 8.9 FL (7.0-11.0) Neutrophils (%) (Auto) 75.8 % (16.0-70.0) Lymphocytes (%) (Auto) 9.0 % (9.0-44.0) Monocytes (%) (Auto) 12.4 % (0.0-8.0) Eosinophils (%) (Auto) 2.1 % (0.0-4.0) Basophils (%) (Auto) 0.7 % (0.0-2.0) Neutrophils # (Auto) 7.6 TH/MM3 (1.8-7.7) Lymphocytes # (Auto) 0.9 TH/MM3 (1.0-4.8) Monocytes # (Auto) 1.2 TH/MM3 (0-0.9) Eosinophils # (Auto) 0.2 TH/MM3 (0-0.4) Basophils # (Auto) 0.1 TH/MM3 (0-0.2) CBC Comment DIFF FINAL Differential Comment Blood Urea Nitrogen 48 MG/DL (7-18) Creatinine 4.25 MG/DL (0.60-1.30) Random Glucose 94 MG/DL (74-106) Total Protein 5.9 GM/DL (6.4-8.2) Albumin 3.3 GM/DL (3.4-5.0) Calcium Level 8.7 MG/DL (8.5-10.1) Alkaline Phosphatase 60 U/L (45-117) Aspartate Amino Transf (AST/SGOT) 26 U/L (15-37) Alanine Aminotransferase (ALT/SGPT) 22 U/L (12-78) Total Bilirubin 0.7 MG/DL (0.2-1.0) Sodium Level 141 MEQ/L (136-145) Potassium Level 3.5 MEQ/L (3.5-5.1) Chloride Level 101 MEQ/L (98-107) Carbon Dioxide Level 27.0 MEQ/L (21.0-32.0) Anion Gap 13 MEQ/L (5-15) Estimat Glomerular Filtration Rate 14 ML/MIN (>89) Result Diagram: 09/11/1752509/11/17525 (1) Non-ST elevation FL (NSTEMI) Plan: No further angina. Cath shows severe 2 vessel CAD including occluded collateralized RCA and severely diseased proximal LAD. EF 55%, Dr Peralta to discuss options today with Dr Pepe Anderson regarding stenting of LAD / then eval for TAVR (2) Paroxysmal atrial fibrillation Plan: Remains in NSR. Tolerating oral Amiodarone so far. Reduce dose to 200 mg qd. (3) Aortic stenosis Plan: Severe aortic stenosis by exam and recent echo with mean gradient > 50 mm Hg. Problem Qualifiers (1) Aortic stenosis: Qualified Codes: I35.0 - Nonrheumatic aortic (valve) stenosis Adolfo Peralta MD Sep 11, 2017 07:53
[2017-09-11] MEDS: DOCUSATE SODIUM 50 MG/SENNA 8.6 MG TAB PO SCH ×2 (09:46→21:00)
[2017-09-11] MEDS: SODIUM CHLORIDE 0.9% FLUSH 10 ML FLUSH IV FLUSH SCH ×2 (09:46→21:26)
[2017-09-11] MEDS: FUROSEMIDE 40 MG TAB PO SCH (09:46)
[2017-09-11] MEDS: AMIODARONE 200 MG TAB PO SCH (09:47)
[2017-09-11] MEDS: PANTOPRAZOLE SOD 40 MG DELAYED RELEASE TAB PO SCH (09:47)
[2017-09-11] MEDS: FOLIC ACID 1 MG TAB PO SCH (09:47)
[2017-09-11] MEDS: METOPROLOL SUCCINATE 50 MG EXTENDED RELEASE TAB PO SCH (09:47)
[2017-09-11] MEDS: MULTIVITAMIN TAB PO SCH (09:47)
[2017-09-11] MEDS: THIAMINE HCL 100 MG TAB PO SCH (09:47)
[2017-09-11] MEDS: CHOLECALCIFEROL (VIT D3) 1000 UNIT TAB PO SCH (09:48)
[2017-09-11] MEDS: ASPIRIN EC 81 MG TABEC PO SCH (09:48)
--- NOTE | 2017-09-11 10:37 | HHI.NPPN ---
Subjective History of Present Illness 72-year-old white male with history of hypertension, chronic kidney disease approaching ESRD who developed chest pain and shortness of breath Objective Data Data Vital Signs Date Time Temp Pulse Resp B/P (MAP) Pulse Ox O2 Delivery O2 Flow Rate FiO2 09/11/17 10:00 80 09/11/17 09:00 84 09/11/17 08:29 99.0 90 16 110/58 (75) 100 09/11/17 08:02 99 21 09/11/17 08:00 74 09/11/17 07:00 76 09/11/17 06:00 80 09/11/17 05:00 76 09/11/17 04:00 74 09/11/17 03:10 98.3 81 20 126/66 (86) 100 09/11/17 03:00 77 09/11/17 02:00 80 09/11/17 01:00 75 09/11/17 00:00 61 09/10/17 23:09 98.6 82 20 123/59 (80) 99 09/10/17 23:00 81 09/10/17 22:00 82 09/10/17 21:00 76 09/10/17 20:25 98.8 69 20 135/68 (90) 96 09/10/17 20:00 47 09/10/17 19:00 81 09/10/17 18:00 76 09/10/17 17:21 99 21 09/10/17 17:00 76 09/10/17 16:28 98.6 79 18 107/58 (74) 100 09/10/17 16:00 87 09/10/17 15:00 91 09/10/17 14:00 90 09/10/17 13:00 76 09/10/17 12:28 98.7 84 16 108/66 (80) 100 09/10/17 12:00 70 09/10/17 11:00 73 -: 09/11/17 0526 09/11/17 0526 Physical Exam General Appearance: Well Developed, Well Nourished Pulmonary Resp Exam: Crackles, Decreased Bases Cardiology CV Exam: Regular, Normal Sinus Rhythm, Murmur Gastrointestinal/Abdomen GI Exam: Soft, Non-Tender, Bowel Sounds Present Extremeties Extremities Exam: Trace Edema Neurologic Neuro Exam: Alert, Awake, Oriented Assessment/Plan Problem List: (1) Acute renal failure ICD Codes: N17.9 - Acute kidney failure, unspecified Plan: Patient has advanced renal failure on hemodialysis heart catheterization done severe two-vessel coronary artery disease LAD 80% and right coronary artery total occlusion severely AV stenosis Cardiovascular surgery still debating about TAVR and a stent Continue supportive care Hemodialysis next tomorrow Hemoglobin increased to 8.1 with iron and Epogen Continue supportive care need Permcath placement Await cardiovascular surgical input (2) CKD (chronic kidney disease) stage 4, GFR 15-29 ml/min ICD Codes: N18.4 - Chronic kidney disease, stage 4 (severe) Plan: Patient may have progress to stage V (3) GI bleed ICD Codes: K92.2 - Gastrointestinal hemorrhage, unspecified Status: Acute Plan: Endoscopy plan (4) Anemia ICD Codes: D64.9 - Anemia Status: Acute Plan: Status post blood transfusion (5) ACS (acute coronary syndrome) ICD Codes: I24.9 - Acute ischemic heart disease, unspecified Status: Acute Plan: Cardiology following AMI (6) Hypertension ICD Codes: I10 - Essential (primary) hypertension Plan: Continue to monitor Gaurav Shah MD Sep 11, 2017 10:37
--- NOTE | 2017-09-11 11:08 | PD.CARD.PN ---
Subjective Subjective Remarks Denies CP, dizziness, PND, palpitations. Mild episodic dyspnea, no change . Objective Medications Item Value Date Time Amiodarone HCl 200 mg 09/10/17 09 (Cordarone) DAILY/PO 09/11/17946 Furosemide 40 mg 09/09/17 0900 (Lasix) DAILY/PO 09/11/1746 Atorvastatin 80 mg 09/04/17 2100 Calcium HS/PO 09/10/172042 (Lipitor) Amlodipine 10 mg 09/04/1700 Besylate DAILY/PO 09/11/1746 (Norvasc) Metoprolol 50 mg 09/04/1700 Succinate DAILY/PO 09/11/17946 (Toprol Xl) Aspirin 81 mg 09/04/17899 (Ecotrin Ec) DAILY/PO 09/11/1748 Current Medications Medications (Trade) Dose Ordered Sig/Marylou Route Start Time Stop Time Status Last Admin Heparin Sodium/ Dextrose 250 ml @ 10.417 mls/ hr TITRATE PRN IV 09/03/17 23:30 Future Hold 09/03/17 23:56 Sodium Chloride 1,000 ml @ 30 mls/hr Q24H IV 09/03/17 23:21 09/08/17 22:41 (NS Flush) 2 ml UNSCH PRN IV FLUSH 09/03/17 23:30 (NS Flush) 2 ml BID IV FLUSH 09/04/17 09:00 09/11/17 09:46 (Tylenol) 650 mg Q6H PRN PO 09/03/17 23:30 (Morphine Inj) 2 mg Q2H PRN IV PUSH 09/03/17 23:30 (Zofran Odt) 4 mg Q6H PRN PO 09/03/17 23:30 (Duoneb Neb) 1 ampule Q2HR NEB PRN INH 09/03/17 23:30 09/04/17 12:14 ([facility]) 1 Q361D XX 09/03/17 23:30 09/03/17 23:30 (Chlorhexidine 2% Cloth) Taper DAILY@04 TOP 09/04/17 04:00 08/31/18 03:59 09/09/17 03:57 (Chlorhexidine 2% Cloth) 3 pack UNSCH PRN TOP 09/03/17 23:30 (Sylvie-Colace) 1 tab BID PO 09/04/17 09:00 09/11/17 09:46 (Milk Of Magnesia Liq) 30 ml Q12H PRN PO 09/03/17 23:30 (Senokot) 17.2 mg Q12H PRN PO 09/03/17 23:30 (Dulcolax Supp) 10 mg DAILY PRN RECTAL 09/03/17 23:30 (Lactulose Liq) 30 ml DAILY PRN PO 09/03/17 23:30 (Norvasc) 10 mg DAILY PO 09/04/17 09:00 09/11/17 09:46 (Lipitor) 80 mg HS PO 09/04/17 21:00 09/10/17 20:43 (Vitamin D3) 1,000 units DAILY PO 09/04/17 09:00 09/11/17 09:48 (Toprol Xl) 50 mg DAILY PO 09/04/17 09:00 09/11/17 09:47 (Ecotrin Ec) 81 mg DAILY PO 09/04/17 09:00 09/11/17 09:48 Sodium Chloride 1,000 ml @ 0 mls/hr Q0M PRN OTHER 09/05/17 10:20 (Heparin Inj) 8,000 units UNSCH PRN IV FLUSH 09/05/17 10:30 Sodium Chloride 1,000 ml @ 200 mls/hr Q5H PRN IV 09/05/17 10:20 Sodium Chloride 1,000 ml @ 0 mls/hr Q0M PRN OTHER 09/05/17 10:20 (Mannitol Inj) 12.5 gm UNSCH PRN IV 09/05/17 10:30 Albumin Human 100 ml @ 60 mls/hr UNSCH PRN IV 09/05/17 10:30 09/10/17 09:17 (NS Flush) 5 ml UNSCH PRN IV FLUSH 09/05/17 10:30 (Heparin Inj) UNSCH PRN .XX 09/05/17 10:30 09/10/17 08:53 (Gentamicin Inj) 20 mg UNSCH PRN OTHER 09/05/17 10:30 09/10/17 08:53 (Zofran Inj) 4 mg UNSCH PRN IV PUSH 09/05/17 10:30 (Tylenol) 650 mg UNSCH PRN PO 09/05/17 10:30 (Benadryl) 25 mg UNSCH PRN PO 09/05/17 10:30 (Nitrostat Sl) 0.4 mg UNSCH PRN SL 09/05/17 10:30 (Catapres) 0.1 mg UNSCH PRN PO 09/05/17 10:30 (Gelfoam 12 Mm/7 Mm Top) 1 foam UNSCH PRN TOP 09/05/17 10:30 (Protonix) 40 mg DAILY PO 09/06/17 09:00 09/11/17 09:47 (NS Flush) UNSCH PRN IV FLUSH 09/05/17 14:15 (Heparin Inj) UNSCH PRN IV FLUSH 09/05/17 14:15 (Vitamin B1) 100 mg DAILY PO 09/05/17 16:30 09/11/17 09:47 (Folate) 1 mg DAILY PO 09/06/17 09:00 09/11/17 09:47 (Theragran) 1 tab DAILY PO 09/06/17 09:00 09/11/17 09:47 (Epogen Inj) 10,000 units UNSCH PRN IV PUSH 09/06/17 12:15 09/10/17 11:42 (Benadryl) 50 mg QUARRY WORKER PO 09/08/17 08:30 09/12/17 08:29 09/08/17 13:54 (Valium) 10 mg QUARRY WORKER PO 09/08/17 08:30 09/12/17 08:29 09/08/17 13:51 (Versed Inj) 1 mg QUARRY WORKER IV PUSH 09/08/17 08:30 09/12/17 08:29 (Lasix) 40 mg DAILY PO 09/09/17 09:00 09/11/17 09:46 Iron Sucrose 100 mg/Sodium Chloride 105 ml @ 105 mls/hr Q24H IV 09/10/17 14:00 09/12/17 14:59 09/10/17 15:30 (Cordarone) 200 mg DAILY PO 09/10/17 09:00 09/11/17 09:47 Vital Signs / I&O Vital Signs Date Time Temp Pulse Resp B/P (MAP) Pulse Ox O2 Delivery O2 Flow Rate FiO2 09/11/17 10:00 80 09/11/17 09:00 84 09/11/17 08:29 99.0 90 16 110/58 (75) 100 09/11/17 08:02 99 21 09/11/17 08:00 74 09/11/17 07:00 76 09/11/17 06:00 80 09/11/17 05:00 76 09/11/17 04:00 74 09/11/17 03:10 98.3 81 20 126/66 (86) 100 09/11/17 03:00 77 09/11/17 02:00 80 09/11/17 01:00 75 09/11/17 00:00 61 09/10/17 23:09 98.6 82 20 123/59 (80) 99 09/10/17 23:00 81 09/10/17 22:00 82 09/10/17 21:00 76 09/10/17 20:25 98.8 69 20 135/68 (90) 96 09/10/17 20:00 47 09/10/17 19:00 81 09/10/17 18:00 76 09/10/17 17:21 99 21 09/10/17 17:00 76 09/10/17 16:28 98.6 79 18 107/58 (74) 100 09/10/17 16:00 87 09/10/17 15:00 91 09/10/17 14:00 90 09/10/17 13:00 76 09/10/17 12:28 98.7 84 16 108/66 (80) 100 09/10/17 12:00 70 I/O 09/10/17 09/10/17 09/10/17 09/11/17 09/11/17 09/11/17 07:00 15:00 23:00 07:00 15:00 23:00 Intake Total 480 ml 200 ml 420 ml 240 ml Output Total 500 ml 3000 ml 400 ml 350 ml Balance -20 ml -2800 ml 20 ml -110 ml Intake Oral 480 ml 420 ml 240 ml IV Total 200 ml Output Urine Total 500 ml 400 ml 350 ml Hemodialysis 3000 ml Physical Exam GENERAL: Well developed, well nourished. No acute distress. HEENT: Jugular venous pressure is normal. CHEST: Lungs clear. CARDIAC: Regular rate and rhythm without S3, S4. II/ OMID base. Diminished S2. ABDOMEN: Soft, nontender, no hepatosplenomegaly. Bowel sounds present. EXTREMITIES: No clubbing, cyanosis, or edema. Laboratory Laboratory Tests Test 09/11/17 05:26 White Blood Count 10.1 TH/MM3 Red Blood Count 2.84 MIL/MM3 Hemoglobin 8.1 GM/DL Hematocrit 24.1 % Mean Corpuscular Volume 84.9 FL Mean Corpuscular Hemoglobin 28.5 PG Mean Corpuscular Hemoglobin Concent 33.6 % Red Cell Distribution Width 18.5 % Platelet Count 218 TH/MM3 Mean Platelet Volume 8.9 FL Neutrophils (%) (Auto) 75.8 % Lymphocytes (%) (Auto) 9.0 % Monocytes (%) (Auto) 12.4 % Eosinophils (%) (Auto) 2.1 % Basophils (%) (Auto) 0.7 % Neutrophils # (Auto) 7.6 TH/MM3 Lymphocytes # (Auto) 0.9 TH/MM3 Monocytes # (Auto) 1.2 TH/MM3 Eosinophils # (Auto) 0.2 TH/MM3 Basophils # (Auto) 0.1 TH/MM3 CBC Comment DIFF FINAL Differential Comment Blood Urea Nitrogen 48 MG/DL Creatinine 4.25 MG/DL Random Glucose 94 MG/DL Total Protein 5.9 GM/DL Albumin 3.3 GM/DL Calcium Level 8.7 MG/DL Alkaline Phosphatase 60 U/L Aspartate Amino Transf (AST/SGOT) 26 U/L Alanine Aminotransferase (ALT/SGPT) 22 U/L Total Bilirubin 0.7 MG/DL Sodium Level 141 MEQ/L Potassium Level 3.5 MEQ/L Chloride Level 101 MEQ/L Carbon Dioxide Level 27.0 MEQ/L Anion Gap 13 MEQ/L Estimat Glomerular Filtration Rate 14 ML/MIN Assessment and Plan Problem List: (1) Non-ST elevation AR (NSTEMI) ICD Codes: I21.4 - Non-ST elevation AR (NSTEMI) Status: Acute Plan: No further angina. Cath shows severe 2 vessel CAD including occluded collateralized RCA and severely diseased proximal LAD. EF 55%. Dr. Peralta's and Dr. Pryor's input noted, greatly appreciated. CABG/AVR perioperative morbidity/mortality risk high. REC identify and treat source of bleeding; once that is done can proceed with high risk PCI will f/u when anemia issues resolved; Dr. Hernandez to perform the PCI continue current medical regimen (2) Paroxysmal atrial fibrillation ICD Codes: I48.0 - Paroxysmal atrial fibrillation Status: Acute Plan: Remains in NSR. Tolerating oral Amiodarone. Recommend no changes. (3) Aortic stenosis ICD Codes: I35.0 - Nonrheumatic aortic (valve) stenosis Status: Chronic Plan: Severe aortic stenosis by exam and recent echo with mean gradient > 50 mm Hg. Plan for TAVR in the future after PCI of LAD, probably few weeks after discharge. Code Status full code Discussed Condition With patient, at length Problem Qualifiers (1) Aortic stenosis: Qualified Codes: I35.0 - Nonrheumatic aortic (valve) stenosis Pepe Anderson MD Sep 11, 2017 11:08
[2017-09-11] MEDS: IRON SUCROSE INJ 100 MG in SODIUM CHLORIDE 0.9% INJ 100 ML IV SCH (13:18)
--- NOTE | 2017-09-11 13:29 | PD.CONS ---
HPI History of Present Illness This is a 72 year old M with PMH significant for , CKD, COPD, hyperlipidemia, HTN, MADAN, anemia, and spinal stenosis who presented to the ER yesterday with complaints of mid chest pain radiating to his jaw. Pt reports symptoms began after mild exertion, denies SOB and palpitations. Our service has been consulted to evaluate pt for anemia and per ER notes a rectal exam revealed black stool that was Hemoccult positive. Pt has history of anemia and has previously required multiple blood transfusions, states has been told that the anemia is secondary to CKD. He was previously on Procrit with no improvement. Pts last EGD and colonoscopy in 2013 revealed very poor prep, diverticulosis, hemorrhoids, and gastritis. Pt denies any GI symptoms at this time including nausea, vomiting, abdominal pain, acid reflux, heartburn, constipation, diarrhea. States he does not check his BMs so he was unaware that they have been black. Denies NSAIDs use. admits to drinking 1-2 liquor drinks a day. Also smokes 1 PPD. Denies family history significant for GI issues. RECONSULT FOR CONTINUED ANEMIA- REQUESTED BY CARDIOLOGY Our service has been reconsulted to evaluate pt for possible colonoscopy. Pt continues to be anemic. Denies any obvious blood in stool or changes in bowel habits. Denies nausea, vomiting, abdominal pain. Cardiology is planning on PCI with possible AVR in a few weeks but would like our service to do a colonoscopy to rule out possible source of GIB. Pt already underwent an EGD by our service on 09/04 which revealed normal esophagus, gastritis in the gastric antrum, normal duodenal mucosa in the duodenal bulb, 2nd part of the duodenum, and 3rd part of the duodenum. (Merary Rossi) PFSH Past Medical History HTN MADAN Hyperlipidemia HTN Spinal stenosis Gastritis Anemia Past Surgical History Appendectomy (Merary Rossi) Coded Allergies: No Known Allergies (Verified Adverse Reaction, Unknown, 09/03/17) Social History ETOH- 1-2 liquor drinks a day Smokes 1 PPD Denies illicit drug use (Merary Rossi) Review of Systems Gastrointestinal: DENIES: Abdominal pain, Black stools, Bloody stools, Constipation, Diarrhea, Nausea, Vomiting (Merary Rossi) GI Exam Vitals I&O Vital Signs Date Time Temp Pulse Resp B/P (MAP) Pulse Ox O2 Delivery O2 Flow Rate FiO2 09/11/17 11:16 98.7 76 16 126/55 (78) 99 09/11/17 10:00 80 09/11/17 09:00 84 09/11/17 08:29 99.0 90 16 110/58 (75) 100 09/11/17 08:02 99 21 09/11/17 08:00 74 09/11/17 07:00 76 09/11/17 06:00 80 09/11/17 05:00 76 09/11/17 04:00 74 09/11/17 03:10 98.3 81 20 126/66 (86) 100 09/11/17 03:00 77 09/11/17 02:00 80 09/11/17 01:00 75 09/11/17 00:00 61 09/10/17 23:09 98.6 82 20 123/59 (80) 99 09/10/17 23:00 81 09/10/17 22:00 82 09/10/17 21:00 76 09/10/17 20:25 98.8 69 20 135/68 (90) 96 09/10/17 20:00 47 09/10/17 19:00 81 09/10/17 18:00 76 09/10/17 17:21 99 21 09/10/17 17:00 76 09/10/17 16:28 98.6 79 18 107/58 (74) 100 09/10/17 16:00 87 09/10/17 15:00 91 09/10/17 14:00 90 I/O 09/10/17 09/10/17 09/10/17 09/11/17 09/11/17 09/11/17 07:00 15:00 23:00 07:00 15:00 23:00 Intake Total 480 ml 200 ml 420 ml 240 ml Output Total 500 ml 3000 ml 400 ml 350 ml Balance -20 ml -2800 ml 20 ml -110 ml Intake Oral 480 ml 420 ml 240 ml IV Total 200 ml Output Urine Total 500 ml 400 ml 350 ml Hemodialysis 3000 ml Imaging Last Impressions Catheter Placement X-Ray 09/05/17 1018 Signed Impressions: CONCLUSION: 1. Uncomplicated line placement as above. Chest X-Ray 09/04/17 0600 Signed Impressions: CONCLUSION: Cardiomegaly with minimal basilar atelectasis. No significant change from September 03. Laboratory Test 09/11/17 05:26 White Blood Count 10.1 TH/MM3 Red Blood Count 2.84 MIL/MM3 Hemoglobin 8.1 GM/DL Hematocrit 24.1 % Mean Corpuscular Volume 84.9 FL Mean Corpuscular Hemoglobin 28.5 PG Mean Corpuscular Hemoglobin Concent 33.6 % Red Cell Distribution Width 18.5 % Platelet Count 218 TH/MM3 Mean Platelet Volume 8.9 FL Neutrophils (%) (Auto) 75.8 % Lymphocytes (%) (Auto) 9.0 % Monocytes (%) (Auto) 12.4 % Eosinophils (%) (Auto) 2.1 % Basophils (%) (Auto) 0.7 % Neutrophils # (Auto) 7.6 TH/MM3 Lymphocytes # (Auto) 0.9 TH/MM3 Monocytes # (Auto) 1.2 TH/MM3 Eosinophils # (Auto) 0.2 TH/MM3 Basophils # (Auto) 0.1 TH/MM3 CBC Comment DIFF FINAL Differential Comment Blood Urea Nitrogen 48 MG/DL Creatinine 4.25 MG/DL Random Glucose 94 MG/DL Total Protein 5.9 GM/DL Albumin 3.3 GM/DL Calcium Level 8.7 MG/DL Alkaline Phosphatase 60 U/L Aspartate Amino Transf (AST/SGOT) 26 U/L Alanine Aminotransferase (ALT/SGPT) 22 U/L Total Bilirubin 0.7 MG/DL Sodium Level 141 MEQ/L Potassium Level 3.5 MEQ/L Chloride Level 101 MEQ/L Carbon Dioxide Level 27.0 MEQ/L Anion Gap 13 MEQ/L Estimat Glomerular Filtration Rate 14 ML/MIN Physical Examination HEENT: Normocephalic; atraumatic CHEST: Even/unlabored CARDIAC: RRR ABDOMEN: Obese, soft, nontender, bowel sounds active EXTREMITIES: No clubbing, cyanosis, or edema. SKIN: Normal; no rash; no jaundice. SURGICAL ASST: Alert and oriented times three. (Merary Rossi) Assessment and Plan Plan Assessment: - Anemia- long history of anemia- has previously required multiple blood transfusions, has been told the anemia is secondary to CKD, previously on Procrit with no improvement. Last EGD and colonoscopy in 2013 --> Very poor prep, diverticulosis, hemorrhoids, and gastritis. H/H currently 5.5/17.6 receiving 3 U PRBCs per CCM Per ER notes, rectal exam revealed black stool that was Hemoccult positive. Pt denies NSAIDs. Drinks 1-2 liquor drinks a day. Smokes 1 PPD. - Positive troponin secondary to severe anemia- pt was placed on Heparin gtt- discussed with Dr. Anderson, distribution center supervisor on the phone, states OK to DC Heparin - CKD- per attending Discussed with Dr Anderson, cardiologists, states OK to proceed with EGD and discontinue Heparin gtt. Discussed with Dr. Bear. Discussed with THIERRY Wallace. Heparin gtt to be discontinued now, continue Protonix gtt, EGD after 4 pm today. RECONSULT FOR CONTINUED ANEMIA- REQUESTED BY CARDIOLOGY Pt continues to be anemic, with a drop in his hgb to 6.9 on 09/09. Cardiology is planning on PCI with AVR in a few weeks, but would like our service to evaluate for possible colonoscopy to rule out source of GIB. Our service already did EGD on 09/04 which revealed normal esophagus, gastritis in the gastric antrum, normal duodenal mucosa in the duodenal bulb, 2nd part of the duodenum, and 3rd part of the duodenum. Pathology (antrum) moderate chronic, focally active gastritis with intestinal metaplasia. Pt denies any obvious blood in stool (although he states he does not really look) constipation, diarrhea, abdominal pain, nausea, vomiting. Plan: Colonoscopy tomorrow Obtain consent Clear liquids today Golytely prep NPO after MN Iron infusions Further recommendations based on findings of above Pt has been seen per myself myself and Dr. Baez and this note is written on his behalf (Merary Rossi) Physician Comments Seen and examined, plan as above. Consent obtained for Colonoscopy. Further recommendations to follow. Thank you for the consult. (hCris Baez MD) Merary Rossi Sep 11, 2017 13:29 Chris Baez MD Sep 12, 2017 10:17
--- NOTE | 2017-09-11 15:19 | HHI.PR ---
Subjective Remarks Relative stability in hemoglobin at this point. Yesterday hemoglobin 7.9 and today is 8.1. No new complaints. Objective Vital Signs Date Time Temp Pulse Resp B/P (MAP) Pulse Ox O2 Delivery O2 Flow Rate FiO2 09/11/17 14:01 76 09/11/17 13:00 80 09/11/17 12:00 86 09/11/17 11:16 98.7 76 16 126/55 (78) 99 09/11/17 11:00 73 09/11/17 10:00 80 09/11/17 09:00 84 09/11/17 08:29 99.0 90 16 110/58 (75) 100 09/11/17 08:02 99 21 09/11/17 08:00 74 09/11/17 07:00 76 09/11/17 06:00 80 09/11/17 05:00 76 09/11/17 04:00 74 09/11/17 03:10 98.3 81 20 126/66 (86) 100 09/11/17 03:00 77 09/11/17 02:00 80 09/11/17 01:00 75 09/11/17 00:00 61 09/10/17 23:09 98.6 82 20 123/59 (80) 99 09/10/17 23:00 81 09/10/17 22:00 82 09/10/17 21:00 76 09/10/17 20:25 98.8 69 20 135/68 (90) 96 09/10/17 20:00 47 09/10/17 19:00 81 09/10/17 18:00 76 09/10/17 17:21 99 21 09/10/17 17:00 76 09/10/17 16:28 98.6 79 18 107/58 (74) 100 09/10/17 16:00 87 I/O 09/10/17 09/10/17 09/10/17 09/11/17 09/11/17 09/11/17 07:00 15:00 23:00 07:00 15:00 23:00 Intake Total 480 ml 200 ml 420 ml 240 ml Output Total 500 ml 3000 ml 400 ml 350 ml Balance -20 ml -2800 ml 20 ml -110 ml Intake Oral 480 ml 420 ml 240 ml IV Total 200 ml Output Urine Total 500 ml 400 ml 350 ml Hemodialysis 3000 ml Result Diagram: 09/11/1752509/11/17525 Objective Remarks GENERAL: NAD, A&Ox3 HEAD: Normocephalic. NECK: Supple, trachea midline. No lymphadenopathy. EYES: No scleral icterus. No injection or drainage. CARDIOVASCULAR: Regular rate and rhythm without murmurs, gallops, or rubs. RESPIRATORY: Breath sounds equal bilaterally. No accessory muscle use. GASTROINTESTINAL: Abdomen soft, non-tender, nondistended. MUSCULOSKELETAL: No cyanosis, or edema. SKIN: Warm and dry. NEURO: No focal neurological deficitis. A/P Problem List: (1) GI bleed ICD Code: K92.2 - Gastrointestinal hemorrhage, unspecified Status: Acute (2) Anemia ICD Code: D64.9 - Anemia Status: Acute (3) Atrial fibrillation ICD Code: I48.91 - Unspecified atrial fibrillation Status: Acute (4) ACS (acute coronary syndrome) ICD Code: I24.9 - Acute ischemic heart disease, unspecified Status: Acute Assessment and Plan 72-year-old male admitted secondary to chest pain status post NSTEMI. chronic kidney disease present at baseline. Colonoscopy planned for tomorrow. If colonoscopy is negative will consider bleed scan if patient has evidence of any active bleed. Possibility of pill capsule study as an outpatient if colonoscopy is negative and if patient is a candidate for blood thinners T AVR could be considered in the future. Coronary stenting may occur during this visit also. NSTEMI CAD Paroxysmal a-fif Aortic Stenosis HTN Plan for TVAR in about 1 month Continue Norvasc Continue metoprolol Continue aspirin Continue amiodarone Cardiology following Follow on telemetry Severe Anemia Recurrent GI bleed Plan for colonoscopy Monitor H&H and transfuse as needed Continue iron supplement Continue Epogen End-stage renal disease Nephrology following Continue dialysis Haris Isabel MD Sep 11, 2017 15:19
[2017-09-11] MEDS ORDERED: PEG (High)/E-LYTE SOLN 4000 ML BTL PO ONE (16:00)
[2017-09-11] MEDS: ATORVASTATIN 80 MG TAB PO SCH (21:25)
[2017-09-11] MEDS: SODIUM CHLOR 0.9% 1000 ML INJ 1,000 ML IV SCH (23:21)
[2017-09-12] VITALS (29 sets, daily range): BP systolic 111–151; BP diastolic 62–98; PULSE 68–100; RESP 16–20; TEMP 97.8–98.5; O2SAT 98–100
[2017-09-12] MEDS: CHLORHEXIDINE GLUCONATE 2 % 1 PACK (2 CLOTHS) TOP SCH ×2 (04:00→21:42)
[2017-09-12 07:01] LABS: AUTOMATED NEUTROPHIL # 6.7 TH/MM3 (1.8-7.7); BASOPHIL # 0.1 TH/MM3 (0-0.2); BASOPHIL % 0.8 % (0.0-2.0); EOSINOPHIL # 0.2 TH/MM3 (0-0.4); EOSINOPHIL % 2.7 % (0.0-4.0); HEMATOCRIT 23.7 % (39.0-51.0); HEMOGLOBIN 7.9 GM/DL (13.0-17.0); LYMPH % 11.4 % (9.0-44.0); MEAN CELL VOLUME 84.1 FL (80.0-100.0); MEAN CORPUSCULAR HEMOGLOBIN 27.9 PG (27.0-34.0); MEAN CORPUSCULAR HGB CONC 33.2 % (32.0-36.0); MEAN PLATELET VOLUME 8.6 FL (7.0-11.0); MONO % 12.2 % (0.0-8.0); MONOCYTE # 1.1 TH/MM3 (0-0.9); NEUT % 72.9 % (16.0-70.0); PLATELET COUNT 217 TH/MM3 (150-450); RED BLOOD COUNT 2.82 MIL/MM3 (4.50-5.90); RED CELL DISTRIBUTION WIDTH 18.6 % (11.6-17.2); WHITE BLOOD COUNT 9.1 TH/MM3 (4.0-11.0)
[2017-09-12 07:18] LABS: ALBUMIN 3.1 GM/DL (3.4-5.0); ALT (GPT) 27 U/L (12-78); AST (GOT) 29 U/L (15-37); BLOOD UREA NITROGEN 53 MG/DL (7-18); CALCIUM 8.4 MG/DL (8.5-10.1); CHLORIDE 101 MEQ/L (98-107); CREATININE 4.85 MG/DL (0.60-1.30); GLOMERULAR FILTRATION RATE 12 ML/MIN (>89); GLUCOSE,RANDOM 90 MG/DL (74-106); SODIUM (NA) 141 MEQ/L (136-145)
[2017-09-12 07:21] LABS: ALKALINE PHOSPHATASE 63 U/L (45-117); TOTAL BILIRUBIN ADULT 0.6 MG/DL (0.2-1.0); TOTAL PROTEIN 5.8 GM/DL (6.4-8.2)
[2017-09-12] MEDS ORDERED: POTASSIUM CHLORIDE 10 MEQ CONTROLLED RELEASE TAB PO ONE ×2 (08:30→18:30)
[2017-09-12] MEDS: FOLIC ACID 1 MG TAB PO SCH (09:00)
[2017-09-12] MEDS: SODIUM CHLORIDE 0.9% FLUSH 10 ML FLUSH IV FLUSH SCH ×2 (09:00→21:41)
[2017-09-12] MEDS: METOPROLOL SUCCINATE 50 MG EXTENDED RELEASE TAB PO SCH (09:00)
[2017-09-12] MEDS: AMIODARONE 200 MG TAB PO SCH (09:00)
[2017-09-12] MEDS: DOCUSATE SODIUM 50 MG/SENNA 8.6 MG TAB PO SCH ×2 (09:00→21:00)
[2017-09-12] MEDS: THIAMINE HCL 100 MG TAB PO SCH (09:00)
[2017-09-12] MEDS: FUROSEMIDE 40 MG TAB PO SCH (09:00)
[2017-09-12] MEDS: PANTOPRAZOLE SOD 40 MG DELAYED RELEASE TAB PO SCH (09:00)
[2017-09-12] MEDS: CHOLECALCIFEROL (VIT D3) 1000 UNIT TAB PO SCH (09:00)
[2017-09-12] MEDS: ASPIRIN EC 81 MG TABEC PO SCH (09:00)
[2017-09-12] MEDS: MULTIVITAMIN TAB PO SCH (09:00)
[2017-09-12] MEDS: HEPARIN SODIUM - IV 10,000 UNITS/10 ML VIAL PRN (11:51)
[2017-09-12] MEDS: EPOETIN ALFA 10,000 UNITS/ML VIAL IV PUSH PRN (11:51)
[2017-09-12] MEDS: GENTAMICIN SULFATE 20 MG/2 ML VIAL OTHER PRN (11:51)
[2017-09-12] MEDS ORDERED: LIDOCAINE HCL 1% PF 5 ML SYRINGE OTHER ONE (12:00)
[2017-09-12] MEDS ORDERED: PROPOFOL 200 MG/20 ML AMP IV ONE (12:00)
[2017-09-12] MEDS ORDERED: METOPROLOL TARTRATE 25 MG TAB ONE (13:36)
[2017-09-12] MEDS ORDERED: METOPROLOL TARTRATE 25 MG TAB PO PRN (14:00)
[2017-09-12] MEDS ORDERED: SODIUM CHLORID 0.9% 500 ML IV PRN (14:00)
[2017-09-12] MEDS: IRON SUCROSE INJ 100 MG in SODIUM CHLORIDE 0.9% INJ 100 ML IV SCH (14:00)
[2017-09-12] MEDS ORDERED: POVIDONE IODINE 5% (ANTISEPSIS KIT) 4 APPLICATIONS EACH NARE PRN (14:00)
[2017-09-12] MEDS ORDERED: CHLORHEXIDINE GLUCONATE 2 % 1 PACK (2 CLOTHS) TOPICAL PRN (14:00)
[2017-09-12] MEDS ORDERED: LACTATED RINGER'S 1000 ML IV PRN (14:00)
--- NOTE | 2017-09-12 14:31 | HHI.PR ---
Subjective Remarks Downward trend in Hgb to day from 8.1 to 7.9, but this is remaining relatively stable over the past 3 days. Status post Colonoscopy today. Report pending. Plan for Dialysis Access Catheter exchange today. Objective Vital Signs Date Time Temp Pulse Resp B/P (MAP) Pulse Ox O2 Delivery O2 Flow Rate FiO2 09/12/17 13:52 99 09/12/17 13:00 84 09/12/17 12:00 89 09/12/17 11:00 70 09/12/17 10:00 80 09/12/17 09:00 100 09/12/17 08:35 98.5 87 18 151/98 (115) 99 09/12/17 08:00 68 09/12/17 07:00 85 09/12/17 06:00 74 09/12/17 05:00 74 09/12/17 04:00 69 09/12/17 03:15 97.8 78 20 118/70 (86) 100 09/12/17 03:00 74 09/12/17 02:00 84 09/12/17 01:00 71 09/12/17 00:00 73 09/11/17 23:17 97.9 74 20 149/75 (99) 99 09/11/17 23:00 87 09/11/17 22:00 73 09/11/17 21:18 97 09/11/17 21:00 82 09/11/17 20:00 73 09/11/17 19:41 97.7 73 20 138/60 (86) 100 09/11/17 19:00 75 09/11/17 18:22 72 09/11/17 17:13 73 09/11/17 16:00 70 09/11/17 15:25 98.7 75 16 137/84 (101) 100 09/11/17 15:00 84 I/O 09/11/17 09/11/17 09/11/17 09/12/17 09/12/17 09/12/17 07:00 15:00 23:00 07:00 15:00 23:00 Intake Total 240 ml 2480 ml 500 ml Output Total 350 ml 750 ml 200 ml 3000 ml Balance -110 ml 1730 ml 300 ml -3000 ml Intake Oral 240 ml 2480 ml 500 ml Output Urine Total 350 ml 750 ml 200 ml Hemodialysis 3000 ml # Bowel Movements 2 4 Result Diagram: 09/12/1728 09/12/17527 Objective Remarks GENERAL: NAD, A&Ox3 HEAD: Normocephalic. NECK: Supple, trachea midline. No lymphadenopathy. EYES: No scleral icterus. No injection or drainage. CARDIOVASCULAR: Regular rate and rhythm without murmurs, gallops, or rubs. RESPIRATORY: Breath sounds equal bilaterally. No accessory muscle use. GASTROINTESTINAL: Abdomen soft, non-tender, nondistended. MUSCULOSKELETAL: No cyanosis, or edema. SKIN: Warm and dry. NEURO: No focal neurological deficitis. A/P Problem List: (1) GI bleed ICD Code: K92.2 - Gastrointestinal hemorrhage, unspecified Status: Acute (2) Anemia ICD Code: D64.9 - Anemia Status: Acute (3) Atrial fibrillation ICD Code: I48.91 - Unspecified atrial fibrillation Status: Acute (4) ACS (acute coronary syndrome) ICD Code: I24.9 - Acute ischemic heart disease, unspecified Status: Acute Assessment and Plan 72-year-old male admitted secondary to chest pain status post NSTEMI. chronic kidney disease present at baseline. Colonoscopy today. Dialysis Access Catheter exchange today. Hgb has a slight downward trend. Consideration for coronary stenting is present. If colonoscopy is negative will consider bleed scan if patient has evidence of any active bleed. Possibility of pill capsule study as an outpatient if colonoscopy is negative and if patient is a candidate for blood thinners TAVR could be considered in the future. NSTEMI CAD Paroxysmal a-fif Aortic Stenosis HTN Plan for TVAR in about 1 month Continue Norvasc Continue metoprolol Continue aspirin Continue amiodarone Cardiology following Follow on telemetry Severe Anemia Recurrent GI bleed Plan for colonoscopy Monitor H&H and transfuse as needed Continue iron supplement Continue Epogen End-stage renal disease Nephrology following Continue dialysis Haris Isabel MD Sep 12, 2017 14:31
[2017-09-12] MEDS ORDERED: KETAMINE HCL 50 MG/5 ML SYRINGE ONE ×2 (14:42→14:52)
[2017-09-12] MEDS ORDERED: MIDAZOLAM HCL 2 MG/2 ML VIAL ONE (14:46)
--- NOTE | 2017-09-12 15:16 | GIPROC ---
[facility] [address] [facility]. [facility], [address] COLONOSCOPY PROCEDURE REPORT EXAM DATE: 09/12/2017 PATIENT NAME: Dayday Ward MR #: [id number] BIRTHDATE: 1945 ENDOSCOPIST: Chris Baez MD ORDER #: [id number] QUOTATION CHECKER: Garcia Diamond and Brandi Valdez STATUS: inpatient INDICATIONS: The patient is a 72 yr old male here for a colonoscopy due to anemia, non-specific PROCEDURE PERFORMED: Colonoscopy, diagnostic MEDICATIONS: None and Per Anesthesia. PREP QUALITY: inadequate PREP TYPE:GoLytely ESTIMATED BLOOD LOSS: None CONSENT: The patient understands the risks and benefits of the procedure and understands that these risks include, but are not limited to: sedation, allergic reaction, infection, perforation and/or bleeding. Alternative means of evaluation and treatment include, among others: physical exam, x-rays, and/or surgical intervention. The patient elects to proceed with this endoscopic procedure. medical equipment was checked for proper function. Hand hygiene and appropriate measures for infection prevention was taken. After the risks, benefits and alternatives of the procedure were thoroughly explained, Informed consent was verified, confirmed and timeout was successfully executed by the treatment team. A digital exam revealed no abnormalities of the rectum The Pentax [id number] endoscope was introduced through the anus and advanced to the cecum, which was identified by both the appendix and ileocecal valve. The instrument was then slowly withdrawn as the colon was fully examined. COLON FINDINGS: A significant amount of stool was present in the ascending colon, at the cecum, and hepatic flexure. Moderate diverticulosis was noted. Retroflexion was performed and was normal The scope was then completely withdrawn from the patient and the procedure terminated. PROCEDURE WITHDRAWAL TIME:8minutes ADVERSE EVENTS: There were no complications. IMPRESSIONS: 1. Significant amount of stool was present in the ascending colon, at the cecum, and hepatic flexure and entire right colon. 2. Moderate sigmoid diverticulosis was noted 3. No large lesion seen, limited exam secondary to poor bowel prep. RECOMMENDATIONS: 1. High fiber diet 2. Avoid NSAIDS and Aspirin 3. Avoid NSAIDS and Aspirin 4. No seeds, nuts and popcorn in diet RECALL: Return 1 month Colonoscopy after discharge for poper diagnostic colonoscopy. Chris Baez MD eSigned: hCris Baez MD 09/12/2017 3:16 PM cc:
[2017-09-12] MEDS ORDERED: DO NOT ADM ANY ANTICOAGULANT DRUGS PRN (15:19)
[2017-09-12] MEDS ORDERED: ceFAZolin 2 GM PREMIX 50 ML ONE (15:45)
[2017-09-12] MEDS ORDERED: LIDOCAINE 1%/EPINEPHrine 1:100,000 SOLN 20 ML VIAL ONE (15:55)
[2017-09-12] MEDS ORDERED: fentaNYL CITRATE 250 MCG/5 ML AMP IV ONE (16:00)
[2017-09-12] MEDS ORDERED: MIDAZOLAM HCL 5 MG/5 ML VIAL IV ONE (16:00)
--- NOTE | 2017-09-12 16:38 | PD.RAD ---
Post Procedure Progress Note Pre Procedure Diagnosis: (1) End stage renal disease Post Procedure Diagnosis: (1) End stage renal disease Procedure Date: Sep 12, 2017 Supervising Radiologist: Juan Miguel Vides JR Proceduralist/Assist: Maya Sung, RT(R), Lisa Ortez RT(R) Anesthesia: Conscious Sedation Plan of Activity Patient to Unit: ROP[facility] Patient Condition: Good See PACS Report for procedural detail/treatment Central Venous Access Device Procedure 1 Right Internal Jugular Hemodialysis Catheter Tunneled dual lumen Polish: 15 Findings: Exchanged RIJ Vascath for Permcath. Functions well. OK to use. Plan Remove sutures in 2-3 weeks. Jr. Peewee,Juan Miguel Valentino MD Sep 12, 2017 16:38
[2017-09-12] MEDS ORDERED: SODIUM CHLORIDE 0.9% FLUSH 10 ML FLUSH IV FLUSH PRN (16:45)
[2017-09-12] MEDS ORDERED: HEPARIN SODIUM - IV 2,000 UNITS/2 ML VIAL IV FLUSH PRN (16:45)
--- NOTE | 2017-09-12 17:50 | RADRPT ---
EXAM DATE: 09/12/2017 4:49 PM EDT AGE/SEX: 72 years / Male INDICATIONS: Patient with chronic kidney disease in need of tunneled dialysis catheter placement. CLINICAL DATA: This is the patient's subsequent encounter. Patient reports that signs and symptoms h ave been present for 1 week and indicates a pain score of 0/10. MEDICAL/SURGICAL HISTORY: Hypertension. Chronic obstructive pulmonary disease. Hypercholester olemia. CKD Stage IV.CAD. Aortic stenosis. [place]. Angina. Non-STEMI. Severe anemia. Appendectomy. Ton sillectomy. Dialysis catheter COMPARISON: No prior exams available for comparison. FLUORO TIME (min): 0.6 IMAGE SERIES: 1 ACCESS SITE: SEDATION TIME (min): 30 MEDICATION(S): 2mg midazolam (Versed) IV 100mcg fentanyl (Sublimaze) IV Prophylactic antibiotics were administered with appropriate pre-procedure timing. Vancomycin within 2 hrs of procedure, Ancef (or alternative) within 1 hr of procedure. DEVICE(S): [id number] Permcath . . PROCEDURE : 1. Fluoroscopically guided PermaCath placement. 2. Conscious sedation with continuous EKG and oximetry monitoring. The risks, benefits and alternatives to the procedure were explained and verbal and written consent w as obtained. The site was prepped in sterile fashion. Full sterile technique was used, including ca p, mask, sterile gloves and gown and a large sterile sheet. Hand hygiene and 2% chlorhexidine Betadi ne was utilized per protocol for cutaneous antisepsis with appropriate dry time for site. The skin a nd subcutaneous tissues were infiltrated with local anesthetic solution. The existing Vas-Cath was removed over a wire. The peel-away sheath was placed. A can't perm catheter was passed down the peel-away sheath and the peel-away sheath removed. A subcutaneous tunnel was cre ated in a retrograde fashion the Trimble catheter was pulled through the tunnel. The catheter was flu shed and assembled and locked with heparin. The catheter was sutured in place. Conscious sedation was performed with the prescribed dosages and duration as above in the presence of an independent trained radiology nurse to assist in the monitoring of the patient. EKG and oximetry remained stable throughout the procedure. The patient tolerated the procedure well and there were n o complications. The patient was sent to post anesthesia recovery in stable condition. CONCLUSION: 1. Uncomplicated PermaCath placement as above. Electronically signed by: Juan Miguel Vides MD 09/12/2017 5:48 PM EDT
--- NOTE | 2017-09-12 17:58 | HHI.NPPN ---
Subjective History of Present Illness 72-year-old white male with history of hypertension, chronic kidney disease approaching ESRD who developed chest pain and shortness of breath Objective Data Data 09/12/17 09/13/17 19:00 07:00 Intake Total 290 ml Output Total 3800 ml Balance -3510 ml Intake Oral 240 ml IV Total 50 ml Output Urine Total 800 ml Hemodialysis 3000 ml Vital Signs Date Time Temp Pulse Resp B/P (MAP) Pulse Ox O2 Delivery O2 Flow Rate FiO2 09/12/17 17:47 98.0 85 16 121/62 (81) 99 09/12/17 17:33 90 09/12/17 16:55 78 18 133/66 (88) 98 09/12/17 16:40 98.5 80 18 111/62 (78) 98 09/12/17 15:30 99.1 76 16 132/60 (84) 98 Nasal Cannula 3 09/12/17 15:15 100.4 78 18 133/56 (81) 97 Nasal Cannula 3 09/12/17 13:52 99 09/12/17 13:00 84 09/12/17 12:00 89 09/12/17 11:00 70 09/12/17 10:00 80 09/12/17 09:00 100 09/12/17 08:35 98.5 87 18 151/98 (115) 99 09/12/17 08:00 68 09/12/17 07:00 85 09/12/17 06:00 74 09/12/17 05:00 74 09/12/17 04:00 69 09/12/17 03:15 97.8 78 20 118/70 (86) 100 09/12/17 03:00 74 09/12/17 02:00 84 09/12/17 01:00 71 09/12/17 00:00 73 09/11/17 23:17 97.9 74 20 149/75 (99) 99 09/11/17 23:00 87 09/11/17 22:00 73 09/11/17 21:18 97 09/11/17 21:00 82 09/11/17 20:00 73 09/11/17 19:41 97.7 73 20 138/60 (86) 100 09/11/17 19:00 75 09/11/17 18:22 72 -: 09/12/17 0528 09/12/17 0528 Physical Exam General Appearance: Well Developed, Well Nourished Pulmonary Resp Exam: Crackles, Decreased Bases Cardiology CV Exam: Regular, Normal Sinus Rhythm, Murmur Gastrointestinal/Abdomen GI Exam: Soft, Non-Tender, Bowel Sounds Present Extremeties Extremities Exam: Trace Edema Neurologic Neuro Exam: Alert, Awake, Oriented Assessment/Plan Problem List: (1) Acute renal failure ICD Codes: N17.9 - Acute kidney failure, unspecified Plan: Patient has advanced renal failure on hemodialysis heart catheterization done severe two-vessel coronary artery disease LAD 80% and right coronary artery total occlusion severely AV stenosis Cardiovascular surgery still debating about TAVR and a stent Continue supportive care Hemodialysis done earlier 3 L removed, he is on Friday, Friday and Friday Hemoglobin dropped to 7.9 on iron and Epogen Continue supportive care Permcath in place Colonoscopy was done with poor visualization Await cardiovascular surgical input (2) CKD (chronic kidney disease) stage 4, GFR 15-29 ml/min ICD Codes: N18.4 - Chronic kidney disease, stage 4 (severe) Plan: Patient may have progress to stage V (3) GI bleed ICD Codes: K92.2 - Gastrointestinal hemorrhage, unspecified Status: Acute Plan: Endoscopy plan (4) Anemia ICD Codes: D64.9 - Anemia Status: Acute Plan: Status post blood transfusion (5) ACS (acute coronary syndrome) ICD Codes: I24.9 - Acute ischemic heart disease, unspecified Status: Acute Plan: Cardiology following AMI (6) Hypertension ICD Codes: I10 - Essential (primary) hypertension Plan: Continue to monitor Gaurav Shah MD Sep 12, 2017 17:58
[2017-09-12] MEDS: ATORVASTATIN 80 MG TAB PO SCH (21:41)
[2017-09-12] MEDS: SODIUM CHLOR 0.9% 1000 ML INJ 1,000 ML IV SCH (21:42)
[2017-09-13] VITALS (23 sets, daily range): BP systolic 102–123; BP diastolic 52–64; PULSE 63–100; RESP 14–20; TEMP 98.2–98.7; O2SAT 97–100
[2017-09-13 04:25] LABS: BASOPHIL # 0.1 TH/MM3 (0-0.2); BASOPHIL % 0.9 % (0.0-2.0); EOSINOPHIL # 0.2 TH/MM3 (0-0.4); EOSINOPHIL % 1.8 % (0.0-4.0); HEMATOCRIT 24.5 % (39.0-51.0); HEMOGLOBIN 8.3 GM/DL (13.0-17.0); LYMPH % 11.3 % (9.0-44.0); LYMPHOCYTE # 1.2 TH/MM3 (1.0-4.8); MEAN CELL VOLUME 86.7 FL (80.0-100.0); MEAN CORPUSCULAR HEMOGLOBIN 29.3 PG (27.0-34.0); MEAN CORPUSCULAR HGB CONC 33.8 % (32.0-36.0); MEAN PLATELET VOLUME 8.9 FL (7.0-11.0); MONO % 12.4 % (0.0-8.0); MONOCYTE # 1.4 TH/MM3 (0-0.9); NEUT % 73.6 % (16.0-70.0); PLATELET COUNT 227 TH/MM3 (150-450); RED BLOOD COUNT 2.83 MIL/MM3 (4.50-5.90); RED CELL DISTRIBUTION WIDTH 19.2 % (11.6-17.2); WHITE BLOOD COUNT 10.9 TH/MM3 (4.0-11.0)
[2017-09-13 05:12] LABS: ALBUMIN 3.3 GM/DL (3.4-5.0); ALKALINE PHOSPHATASE 73 U/L (45-117); ALT (GPT) 26 U/L (12-78); AST (GOT) 27 U/L (15-37); BICARBONATE 27.2 MEQ/L (21.0-32.0); BLOOD UREA NITROGEN 35 MG/DL (7-18); CALCIUM 8.3 MG/DL (8.5-10.1); CHLORIDE 101 MEQ/L (98-107); CREATININE 4.22 MG/DL (0.60-1.30); GLOMERULAR FILTRATION RATE 14 ML/MIN (>89); GLUCOSE,RANDOM 93 MG/DL (74-106); SODIUM (NA) 140 MEQ/L (136-145); TOTAL BILIRUBIN ADULT 0.6 MG/DL (0.2-1.0); TOTAL PROTEIN 5.9 GM/DL (6.4-8.2)
[2017-09-13 05:41] LABS: BANDS 6 % (0-6); BASOPHILS 1 % (0-2); CORRECTED NUCLEATED RBC 3 /100 WBC (0-0); LYMPHOCYTES 11 % (9-44); MONOCYTES 8 % (0-8); NEUTROPHIL # MANUAL DIFF 8.7 TH/MM3 (1.8-7.7); NUCLEATED RED BLOOD CELL 3 (0-0); POLYS (SEG NEUTROPHILS) 74 % (16-70)
[2017-09-13 05:44] LABS: OVALOCYTES 1+ (NORMAL); SPHEROCYTES OCC (NORMAL)
[2017-09-13] MEDS: SODIUM CHLORIDE 0.9% FLUSH 10 ML FLUSH IV FLUSH SCH ×2 (08:54→20:32)
[2017-09-13] MEDS: CHOLECALCIFEROL (VIT D3) 1000 UNIT TAB PO SCH (08:54)
[2017-09-13] MEDS: ASPIRIN EC 81 MG TABEC PO SCH (08:54)
[2017-09-13] MEDS: FOLIC ACID 1 MG TAB PO SCH (08:54)
[2017-09-13] MEDS: THIAMINE HCL 100 MG TAB PO SCH (08:54)
[2017-09-13] MEDS: MULTIVITAMIN TAB PO SCH (08:54)
[2017-09-13] MEDS: FUROSEMIDE 40 MG TAB PO SCH (08:54)
[2017-09-13] MEDS: AMIODARONE 200 MG TAB PO SCH (08:54)
[2017-09-13] MEDS: DOCUSATE SODIUM 50 MG/SENNA 8.6 MG TAB PO SCH ×2 (08:54→20:32)
[2017-09-13] MEDS: METOPROLOL SUCCINATE 50 MG EXTENDED RELEASE TAB PO SCH (08:54)
[2017-09-13] MEDS: PANTOPRAZOLE SOD 40 MG DELAYED RELEASE TAB PO SCH (08:54)
--- NOTE | 2017-09-13 12:58 | HHI.GIFU ---
Subjective Remarks IR for bleeding scan Fever noted 100. On 09/12/2017, afebrile today back to , sitting up in chair. No complaints of ABD/ pain, nausea/vomiting (Zabrina Aceves) Objective Vitals I&O Vital Signs Date Time Temp Pulse Resp B/P (MAP) Pulse Ox O2 Delivery O2 Flow Rate FiO2 09/13/17 10:00 87 09/13/17 09:00 92 09/13/17 08:05 98.7 84 14 123/52 (75) 100 09/13/17 08:00 100 09/13/17 07:00 74 09/13/17 06:00 74 09/13/17 05:00 74 09/13/17 04:00 78 09/13/17 03:30 86 16 102/56 (71) 98 09/13/17 03:00 78 09/13/17 02:00 79 09/13/17 01:00 74 09/13/17 00:00 74 09/12/17 23:34 77 16 127/63 (84) 99 09/12/17 23:00 84 09/12/17 22:00 78 09/12/17 21:00 76 09/12/17 20:00 74 09/12/17 19:45 98.3 78 16 124/66 (85) 100 09/12/17 19:00 81 09/12/17 18:00 85 09/12/17 17:47 98.0 85 16 121/62 (81) 99 09/12/17 17:33 90 09/12/17 16:55 78 18 133/66 (88) 98 09/12/17 16:40 98.5 80 18 111/62 (78) 98 09/12/17 15:30 99.1 76 16 132/60 (84) 98 Nasal Cannula 3 09/12/17 15:15 100.4 78 18 133/56 (81) 97 Nasal Cannula 3 09/12/17 13:52 99 09/12/17 13:00 84 I/O 09/12/17 09/12/17 09/12/17 09/13/17 09/13/17 09/13/17 07:00 15:00 23:00 07:00 15:00 23:00 Intake Total 500 ml 290 ml 240 ml Output Total 200 ml 3000 ml 800 ml 400 ml Balance 300 ml -3000 ml -510 ml -160 ml Intake Oral 500 ml 240 ml 240 ml IV Total 50 ml Output Urine Total 200 ml 800 ml 400 ml Hemodialysis 3000 ml # Bowel Movements 4 0 Laboratory Laboratory Tests Test 09/13/17 03:26 White Blood Count 10.9 Red Blood Count 2.83 Hemoglobin 8.3 Hematocrit 24.5 Mean Corpuscular Volume 86.7 Mean Corpuscular Hemoglobin 29.3 Mean Corpuscular Hemoglobin Concent 33.8 Red Cell Distribution Width 19.2 Platelet Count 227 Mean Platelet Volume 8.9 Neutrophils (%) (Auto) 73.6 Lymphocytes (%) (Auto) 11.3 Monocytes (%) (Auto) 12.4 Eosinophils (%) (Auto) 1.8 Basophils (%) (Auto) 0.9 Neutrophils # (Auto) 8.0 Lymphocytes # (Auto) 1.2 Monocytes # (Auto) 1.4 Eosinophils # (Auto) 0.2 Basophils # (Auto) 0.1 CBC Comment AUTO DIFF Differential Total Cells Counted 100 Neutrophils % (Manual) 74 Band Neutrophils % 6 Lymphocytes % 11 Monocytes % 8 Basophils % 1 Neutrophils # (Manual) 8.7 Nucleated Red Blood Cells 3 Differential Comment FINAL DIFF MANUAL Platelet Estimate NORMAL Platelet Morphology Comment NORMAL Basophilic Stippling MOD Spherocytes OCC Ovalocytes 1+ Acanthocytes Blood Urea Nitrogen 35 Creatinine 4.22 Random Glucose 93 Total Protein 5.9 Albumin 3.3 Calcium Level 8.3 Alkaline Phosphatase 73 Aspartate Amino Transf (AST/SGOT) 27 Alanine Aminotransferase (ALT/SGPT) 26 Total Bilirubin 0.6 Sodium Level 140 Potassium Level 3.7 Chloride Level 101 Carbon Dioxide Level 27.2 Anion Gap 12 Estimat Glomerular Filtration Rate 14 Physical Exam HEENT: Overweight, normocephalic; atraumatic; pale , NECK: Neck is supple, short CHEST: Diminished breath sounds, low volumes, mild dyspnea at rest CARDIAC: Regular rate and rhythm ABDOMEN: Round, taut, nontender to light palpation; bowel sounds are present in all four quadrants. EXTREMITIES: Mild lower extremity edema. SKIN: Pale, no rash OPERATOR ENGINEER: Answers questions appropriately, mild anxiety (Zabrina Aceves) Assessment and Plan Plan Assessment: - Anemia- long history of anemia- has previously required multiple blood transfusions, has been told the anemia is secondary to CKD, previously on Procrit with no improvement. Last EGD and colonoscopy in 2013 --> Very poor prep, diverticulosis, hemorrhoids, and gastritis. H/H currently 5.5/17.6 receiving 3 U PRBCs per CCM Per ER notes, rectal exam revealed black stool that was Hemoccult positive. Pt denies NSAIDs. Drinks 1-2 liquor drinks a day. Smokes 1 PPD. - Positive troponin secondary to severe anemia- pt was placed on Heparin gtt- discussed with Dr. Anderson, finance vice president on the phone, states OK to DC Heparin - CKD- per attending Discussed with Dr Anderson, cardiologists, states OK to proceed with EGD and discontinue Heparin gtt. Discussed with Dr. Bear. Discussed with THIERRY Wallace. Heparin gtt to be discontinued now, continue Protonix gtt, EGD after 4 pm today. RECONSULT FOR CONTINUED ANEMIA- REQUESTED BY CARDIOLOGY Pt continues to be anemic, with a drop in his hgb to 6.9 on 09/09. Cardiology is planning on PCI with AVR in a few weeks, but would like our service to evaluate for possible colonoscopy to rule out source of GIB. Our service already did EGD on 09/04 which revealed normal esophagus, gastritis in the gastric antrum, normal duodenal mucosa in the duodenal bulb, 2nd part of the duodenum, and 3rd part of the duodenum. Pathology (antrum) moderate chronic, focally active gastritis with intestinal metaplasia. Pt denies any obvious blood in stool (although he states he does not really look) constipation, diarrhea, abdominal pain, nausea, vomiting. 09/13/2017, follow-up on patient's symptoms, INR today for bleeding scan Status post colonoscopy performed on 09/12/2017 results include significant amount of stool still present in the ascending colon at the cecum hepatic flexure and the entire right colon. Moderate sigmoid diverticulosis, no large lesions seen but limited exam secondary to poor bowel prep Plan High fiber diet PPI Avoid NSAIDS and Aspirin No seeds, nuts and popcorn in diet Follow-up in the GI office and return 1 month Colonoscopy repeat. Theragran-M vitamins and iron supplements Pt has been seen per myself myself and Dr. Baez and this note is written on his behalf (Zabrina Aceves) Physician Comments Agree with above assessment and plan. Will check scan results. Further recommendations to follow. (Chris Baez MD) Zabrina Aceves Sep 13, 2017 12:58 Chris Baez MD Sep 14, 2017 10:19
--- NOTE | 2017-09-13 13:47 | RADRPT ---
EXAM DATE: 09/13/2017 1:29 PM EDT AGE/SEX: 72 years / Male INDICATIONS: Anemia. CLINICAL DATA: This is the patient's initial encounter. Patient reports that signs and symptoms have been present for 1 day and indicates a pain score of 0/10. MEDICAL/SURGICAL HISTORY: Cardiovascular disease. Hypertension. Renal disease, end stage. Jennie endectomy. COMPARISON: No prior exams available for comparison. TECHNIQUE: Following the modified in vitro labeling of autologous red cells, dynamic continuous image s were acquired for two hours. ?? DOSE: 21.2 mCi Tc 99m Ultratag Labeled Red Blood Cells IV IMAGING TIME: 2 hr FINDINGS: Biodistribution: There is a very good labeling of red cells without significant uptake in the gastri c wall. There is good delineation of the blood pool of the spleen and abdominal vessels. Bleeding: No episodes of active GI bleeding are observed during two hours of continuous observation . CONCLUSION: 1. No focal abnormality to suggest active hemorrhage. Electronically signed by: Charli Oliveira MD 09/13/2017 1:46 PM EDT
--- NOTE | 2017-09-13 15:30 | HHI.PR ---
Subjective Remarks Upward trend in hemoglobin today from 7.9 to 8.3. Nuclear medicine bleeding study ordered and shows no evidence of bleeding. Patient has no new complaints. Objective Vital Signs Date Time Temp Pulse Resp B/P (MAP) Pulse Ox O2 Delivery O2 Flow Rate FiO2 09/13/17 14:00 90 09/13/17 10:00 87 09/13/17 09:00 92 09/13/17 08:05 98.7 84 14 123/52 (75) 100 09/13/17 08:00 100 09/13/17 07:00 74 09/13/17 06:00 74 09/13/17 05:00 74 09/13/17 04:00 78 09/13/17 03:30 86 16 102/56 (71) 98 09/13/17 03:00 78 09/13/17 02:00 79 09/13/17 01:00 74 09/13/17 00:00 74 09/12/17 23:34 77 16 127/63 (84) 99 09/12/17 23:00 84 09/12/17 22:00 78 09/12/17 21:00 76 09/12/17 20:00 74 09/12/17 19:45 98.3 78 16 124/66 (85) 100 09/12/17 19:00 81 09/12/17 18:00 85 09/12/17 17:47 98.0 85 16 121/62 (81) 99 09/12/17 17:33 90 09/12/17 16:55 78 18 133/66 (88) 98 09/12/17 16:40 98.5 80 18 111/62 (78) 98 09/12/17 15:30 99.1 76 16 132/60 (84) 98 Nasal Cannula 3 I/O 09/12/17 09/12/17 09/12/17 09/13/17 09/13/17 09/13/17 07:00 15:00 23:00 07:00 15:00 23:00 Intake Total 500 ml 290 ml 240 ml Output Total 200 ml 3000 ml 800 ml 400 ml Balance 300 ml -3000 ml -510 ml -160 ml Intake Oral 500 ml 240 ml 240 ml IV Total 50 ml Output Urine Total 200 ml 800 ml 400 ml Hemodialysis 3000 ml # Bowel Movements 4 0 Result Diagram: 09/13/176 09/13/17325 Objective Remarks GENERAL: NAD, A&Ox3 HEAD: Normocephalic. NECK: Supple, trachea midline. No lymphadenopathy. EYES: No scleral icterus. No injection or drainage. CARDIOVASCULAR: Regular rate and rhythm without murmurs, gallops, or rubs. RESPIRATORY: Breath sounds equal bilaterally. No accessory muscle use. GASTROINTESTINAL: Abdomen soft, non-tender, nondistended. MUSCULOSKELETAL: No cyanosis, or edema. SKIN: Warm and dry. NEURO: No focal neurological deficitis. A/P Problem List: (1) GI bleed ICD Code: K92.2 - Gastrointestinal hemorrhage, unspecified Status: Acute (2) Anemia ICD Code: D64.9 - Anemia Status: Acute (3) Atrial fibrillation ICD Code: I48.91 - Unspecified atrial fibrillation Status: Acute (4) ACS (acute coronary syndrome) ICD Code: I24.9 - Acute ischemic heart disease, unspecified Status: Acute Assessment and Plan 72-year-old male admitted secondary to chest pain status post NSTEMI. chronic kidney disease present at baseline. Colonoscopy yesterday was negative. Bleed scan obtained today with nuclear medicine and shows no evidence of bleeding. There may still be a slowly not showing on the scan. Continue to monitor hemoglobin levels. Stent placement and TAVR will need blood thinners, which might be contraindicated the patient has ongoing GI bleed. NSTEMI CAD Paroxysmal a-fif Aortic Stenosis HTN Plan for TVAR and coronary stent if GI Bleeding subsides Continue Norvasc Continue metoprolol Continue aspirin Continue amiodarone Cardiology following Follow on telemetry Severe Anemia Recurrent GI bleed Plan for colonoscopy Monitor H&H and transfuse as needed Continue iron supplement Continue Epogen End-stage renal disease Nephrology following Continue dialysis Haris Isabel MD Sep 13, 2017 15:30
--- NOTE | 2017-09-13 16:18 | HHI.NPPN ---
Subjective History of Present Illness 72-year-old white male with history of hypertension, chronic kidney disease approaching ESRD who developed chest pain and shortness of breath Interval History Seen in the morning. Patient to have nuclear medicine scan to investigate bleeding. Appeared comfortable. Review of Systems General Constitutional: Fatigue Objective Data Data Vital Signs Date Time Temp Pulse Resp B/P (MAP) Pulse Ox O2 Delivery O2 Flow Rate FiO2 09/13/17 16:00 70 09/13/17 15:36 98.5 77 16 117/63 (81) 100 09/13/17 15:00 79 09/13/17 14:00 90 09/13/17 10:00 87 09/13/17 09:00 92 09/13/17 08:05 98.7 84 14 123/52 (75) 100 09/13/17 08:00 100 09/13/17 07:00 74 09/13/17 06:00 74 09/13/17 05:00 74 09/13/17 04:00 78 09/13/17 03:30 86 16 102/56 (71) 98 09/13/17 03:00 78 09/13/17 02:00 79 09/13/17 01:00 74 09/13/17 00:00 74 09/12/17 23:34 77 16 127/63 (84) 99 09/12/17 23:00 84 09/12/17 22:00 78 09/12/17 21:00 76 09/12/17 20:00 74 09/12/17 19:45 98.3 78 16 124/66 (85) 100 09/12/17 19:00 81 09/12/17 18:00 85 09/12/17 17:47 98.0 85 16 121/62 (81) 99 09/12/17 17:33 90 09/12/17 16:55 78 18 133/66 (88) 98 09/12/17 16:40 98.5 80 18 111/62 (78) 98 -: 09/13/17 0326 09/13/17 0326 Physical Exam General Appearance: Well Developed, Well Nourished Pulmonary Resp Exam: Crackles, Decreased Bases Cardiology CV Exam: Regular, Normal Sinus Rhythm, Murmur Gastrointestinal/Abdomen GI Exam: Soft, Non-Tender, Bowel Sounds Present Extremeties Extremities Exam: Trace Edema Neurologic Neuro Exam: Alert, Awake, Oriented Assessment/Plan Problem List: (1) Acute renal failure ICD Codes: N17.9 - Acute kidney failure, unspecified Plan: Patient has advanced renal failure on hemodialysis heart catheterization done severe two-vessel coronary artery disease LAD 80% and right coronary artery total occlusion severely AV stenosis Cardiovascular surgery still debating about TAVR and a stent Continue supportive care HD to be continued MWF. Permcath in place Colonoscopy was done with poor visualization Await cardiovascular surgical input (2) CKD (chronic kidney disease) stage 4, GFR 15-29 ml/min ICD Codes: N18.4 - Chronic kidney disease, stage 4 (severe) Plan: Patient may have progress to stage V (3) GI bleed ICD Codes: K92.2 - Gastrointestinal hemorrhage, unspecified Status: Acute Plan: GI following. (4) Anemia ICD Codes: D64.9 - Anemia Status: Acute Plan: Status post blood transfusion (5) ACS (acute coronary syndrome) ICD Codes: I24.9 - Acute ischemic heart disease, unspecified Status: Acute Plan: Cardiology following. s/p Cath. Has CAD and . (6) Hypertension ICD Codes: I10 - Essential (primary) hypertension Plan: Continue to monitor Charanjit Melendez MD Sep 13, 2017 16:18
[2017-09-13] MEDS: ATORVASTATIN 80 MG TAB PO SCH (20:32)
[2017-09-14] VITALS (32 sets, daily range): BP systolic 99–141; BP diastolic 51–75; PULSE 67–83; RESP 16–20; TEMP 97.8–98.6; O2SAT 95–100
[2017-09-14] MEDS: SODIUM CHLOR 0.9% 1000 ML INJ 1,000 ML IV SCH (00:58)
[2017-09-14] MEDS: CHLORHEXIDINE GLUCONATE 2 % 1 PACK (2 CLOTHS) TOP SCH (04:00)
[2017-09-14 04:10] LABS: AUTOMATED NEUTROPHIL # 6.9 TH/MM3 (1.8-7.7); BASOPHIL # 0.1 TH/MM3 (0-0.2); BASOPHIL % 0.7 % (0.0-2.0); EOSINOPHIL # 0.2 TH/MM3 (0-0.4); EOSINOPHIL % 2.5 % (0.0-4.0); HEMATOCRIT 24.1 % (39.0-51.0); LYMPH % 13.9 % (9.0-44.0); LYMPHOCYTE # 1.4 TH/MM3 (1.0-4.8); MEAN CELL VOLUME 87.2 FL (80.0-100.0); MEAN CORPUSCULAR HEMOGLOBIN 29.1 PG (27.0-34.0); MEAN CORPUSCULAR HGB CONC 33.3 % (32.0-36.0); MEAN PLATELET VOLUME 8.5 FL (7.0-11.0); MONO % 12.1 % (0.0-8.0); MONOCYTE # 1.2 TH/MM3 (0-0.9); NEUT % 70.8 % (16.0-70.0); PLATELET COUNT 230 TH/MM3 (150-450); RED BLOOD COUNT 2.76 MIL/MM3 (4.50-5.90); WHITE BLOOD COUNT 9.8 TH/MM3 (4.0-11.0)
[2017-09-14 05:22] LABS: ALBUMIN 3.2 GM/DL (3.4-5.0); ALKALINE PHOSPHATASE 70 U/L (45-117); ALT (GPT) 18 U/L (12-78); AST (GOT) 19 U/L (15-37); BICARBONATE 26.3 MEQ/L (21.0-32.0); BLOOD UREA NITROGEN 47 MG/DL (7-18); CALCIUM 8.3 MG/DL (8.5-10.1); CHLORIDE 101 MEQ/L (98-107); CREATININE 5.41 MG/DL (0.60-1.30); GLOMERULAR FILTRATION RATE 10 ML/MIN (>89); GLUCOSE,RANDOM 102 MG/DL (74-106); SODIUM (NA) 139 MEQ/L (136-145); TOTAL BILIRUBIN ADULT 0.5 MG/DL (0.2-1.0); TOTAL PROTEIN 5.9 GM/DL (6.4-8.2)
[2017-09-14 05:36] LABS: CORRECTED NUCLEATED RBC 4 /100 WBC (0-0); LYMPHOCYTES 9 % (9-44); MONOCYTES 10 % (0-8); NEUTROPHIL # MANUAL DIFF 7.7 TH/MM3 (1.8-7.7); NUCLEATED RED BLOOD CELL 4 (0-0); POLYS (SEG NEUTROPHILS) 79 % (16-70)
[2017-09-14 05:38] LABS: OVALOCYTES 1+ (NORMAL)
[2017-09-14 05:42] LABS: ACANTHOCYTES OCC (NORMAL); POLYCHROMASIA 2.2 % (0.0-1.9)
[2017-09-14] MEDS: DOCUSATE SODIUM 50 MG/SENNA 8.6 MG TAB PO SCH ×2 (09:00→21:00)
[2017-09-14] MEDS: CHOLECALCIFEROL (VIT D3) 1000 UNIT TAB PO SCH (09:01)
[2017-09-14] MEDS: FUROSEMIDE 40 MG TAB PO SCH (09:01)
[2017-09-14] MEDS: METOPROLOL SUCCINATE 50 MG EXTENDED RELEASE TAB PO SCH (09:01)
[2017-09-14] MEDS: MULTIVITAMIN TAB PO SCH (09:01)
[2017-09-14] MEDS: THIAMINE HCL 100 MG TAB PO SCH (09:01)
[2017-09-14] MEDS: FOLIC ACID 1 MG TAB PO SCH (09:02)
[2017-09-14] MEDS: PANTOPRAZOLE SOD 40 MG DELAYED RELEASE TAB PO SCH (09:02)
[2017-09-14] MEDS: ASPIRIN EC 81 MG TABEC PO SCH (09:02)
[2017-09-14] MEDS: AMIODARONE 200 MG TAB PO SCH (09:05)
[2017-09-14] MEDS: SODIUM CHLORIDE 0.9% FLUSH 10 ML FLUSH IV FLUSH SCH ×2 (09:05→21:12)
--- NOTE | 2017-09-14 09:29 | HHI.NPPN ---
Subjective History of Present Illness 72-year-old white male with history of hypertension, chronic kidney disease approaching ESRD who developed chest pain and shortness of breath Interval History He is not in distress. Reports of no blood in the bowel movement this morning. Review of Systems General Constitutional: Fatigue Objective Data Data Vital Signs Date Time Temp Pulse Resp B/P (MAP) Pulse Ox O2 Delivery O2 Flow Rate FiO2 09/14/17 06:00 69 09/14/17 05:00 74 09/14/17 04:00 98.3 71 18 102/54 (70) 96 09/14/17 04:00 Room Air 09/14/17 04:00 71 09/14/17 03:00 72 09/14/17 02:00 74 09/14/17 01:00 75 09/14/17 00:00 98.0 73 18 99/51 (67) 96 09/14/17 00:00 73 09/14/17 00:00 Room Air 09/13/17 23:00 72 09/13/17 22:00 70 09/13/17 21:00 73 09/13/17 20:00 98.2 74 20 118/64 (82) 97 09/13/17 20:00 74 09/13/17 20:00 Room Air 09/13/17 18:00 77 09/13/17 17:00 73 09/13/17 16:00 70 09/13/17 15:36 98.5 77 16 117/63 (81) 100 09/13/17 15:00 79 09/13/17 14:00 90 09/13/17 10:00 87 -: 09/14/17 0327 09/14/17 0327 Physical Exam General Appearance: Well Developed, Well Nourished Pulmonary Resp Exam: Crackles, Decreased Bases Cardiology CV Exam: Regular, Normal Sinus Rhythm, Murmur Gastrointestinal/Abdomen GI Exam: Soft, Non-Tender, Bowel Sounds Present Extremeties Extremities Exam: Trace Edema Neurologic Neuro Exam: Alert, Awake, Oriented Assessment/Plan Problem List: (1) Acute renal failure ICD Codes: N17.9 - Acute kidney failure, unspecified Plan: Continue HD MWF. heart catheterization done severe two-vessel coronary artery disease LAD 80% and right coronary artery total occlusion severely AV stenosis TAVR and coronary stent planned after GI issues resolve. Continue supportive care Permcath in place Colonoscopy was done with poor visualization (2) CKD (chronic kidney disease) stage 4, GFR 15-29 ml/min ICD Codes: N18.4 - Chronic kidney disease, stage 4 (severe) Plan: Patient may have progress to stage V (3) GI bleed ICD Codes: K92.2 - Gastrointestinal hemorrhage, unspecified Status: Acute Plan: GI following. (4) Anemia ICD Codes: D64.9 - Anemia Status: Acute Plan: Status post blood transfusion (5) ACS (acute coronary syndrome) ICD Codes: I24.9 - Acute ischemic heart disease, unspecified Status: Acute Plan: Cardiology following. s/p Cath. Has CAD and . (6) Hypertension ICD Codes: I10 - Essential (primary) hypertension Plan: Continue to monitor Charanjit Melendez MD Sep 14, 2017 09:29
[2017-09-14] MEDS ORDERED: SODIUM CHLOR 0.9% 250 ML INJ 250 ML IV ONE (11:00)
--- NOTE | 2017-09-14 11:02 | HHI.PR ---
Subjective Remarks Downward trend in hemoglobin today from 8.3 to 8.0. Overall hemoglobin does not appear to be increasing. Blood transfusion may benefit patient both in hemoglobin count and in stabilizing his slow bleed. Nuclear medicine bleeding study ordered and shows no evidence of bleeding. Patient has no new complaints. Objective Vital Signs Date Time Temp Pulse Resp B/P (MAP) Pulse Ox O2 Delivery O2 Flow Rate FiO2 09/14/17 10:00 74 09/14/17 09:33 97.8 83 18 121/63 (82) 96 09/14/17 09:33 96 Blow By 09/14/17 09:00 82 09/14/17 08:00 68 09/14/17 07:00 71 09/14/17 06:00 69 09/14/17 05:00 74 09/14/17 04:00 98.3 71 18 102/54 (70) 96 09/14/17 04:00 Room Air 09/14/17 04:00 71 09/14/17 03:00 72 09/14/17 02:00 74 09/14/17 01:00 75 09/14/17 00:00 98.0 73 18 99/51 (67) 96 09/14/17 00:00 73 09/14/17 00:00 Room Air 09/13/17 23:00 72 09/13/17 22:00 70 09/13/17 21:00 73 09/13/17 20:00 98.2 74 20 118/64 (82) 97 09/13/17 20:00 74 09/13/17 20:00 Room Air 09/13/17 18:00 77 09/13/17 17:00 73 09/13/17 16:00 70 09/13/17 15:36 98.5 77 16 117/63 (81) 100 09/13/17 15:00 79 09/13/17 14:00 90 I/O 09/13/17 09/13/17 09/13/17 09/14/17 09/14/17 09/14/17 07:00 15:00 23:00 07:00 15:00 23:00 Intake Total 240 ml 720 ml 240 ml Output Total 400 ml 450 ml 575 ml Balance -160 ml 270 ml -335 ml Intake Oral 240 ml 720 ml 240 ml Output Urine Total 400 ml 450 ml 575 ml # Bowel Movements 0 0 Result Diagram: 6/17/18 0327 09/14/17 0327 Objective Remarks GENERAL: NAD, A&Ox3 HEAD: Normocephalic. NECK: Supple, trachea midline. No lymphadenopathy. EYES: No scleral icterus. No injection or drainage. CARDIOVASCULAR: Regular rate and rhythm without murmurs, gallops, or rubs. RESPIRATORY: Breath sounds equal bilaterally. No accessory muscle use. GASTROINTESTINAL: Abdomen soft, non-tender, nondistended. MUSCULOSKELETAL: No cyanosis, or edema. SKIN: Warm and dry. NEURO: No focal neurological deficitis. A/P Problem List: (1) GI bleed ICD Code: K92.2 - Gastrointestinal hemorrhage, unspecified Status: Acute (2) Anemia ICD Code: D64.9 - Anemia Status: Acute (3) Atrial fibrillation ICD Code: I48.91 - Unspecified atrial fibrillation Status: Acute (4) ACS (acute coronary syndrome) ICD Code: I24.9 - Acute ischemic heart disease, unspecified Status: Acute Assessment and Plan 72-year-old male admitted secondary to chest pain status post NSTEMI. chronic kidney disease present at baseline. Transfuse 1 unit of packed red blood cells today. Current plan is for coronary stent placement prior to discharge. Colonoscopy yesterday was negative. Bleed scan obtained today with nuclear medicine and shows no evidence of bleeding. There may still be a slowly not showing on the scan. Continue to monitor hemoglobin levels. TAVR will is planned for the future. NSTEMI CAD Paroxysmal a-fif Aortic Stenosis HTN Plan for TVAR and coronary stent if GI Bleeding subsides Continue Norvasc Continue metoprolol Continue aspirin Continue amiodarone Cardiology following Follow on telemetry Severe Anemia Recurrent GI bleed Plan for colonoscopy Monitor H&H and transfuse as needed Continue iron supplement Continue Epogen End-stage renal disease Nephrology following Continue dialysis Haris Isabel MD Sep 14, 2017 11:02
--- NOTE | 2017-09-14 13:43 | HHI.GIFU ---
Subjective Remarks Same overall condition, no GI symptoms. Objective Vitals I&O Vital Signs Date Time Temp Pulse Resp B/P (MAP) Pulse Ox O2 Delivery O2 Flow Rate FiO2 09/14/17 13:00 67 09/14/17 12:00 71 09/14/17 11:46 97.8 78 16 118/66 (83) 99 09/14/17 11:00 74 09/14/17 10:00 74 09/14/17 09:33 97.8 83 18 121/63 (82) 96 09/14/17 09:33 96 Blow By 09/14/17 09:00 82 09/14/17 08:00 68 09/14/17 07:00 71 09/14/17 06:00 69 09/14/17 05:00 74 09/14/17 04:00 98.3 71 18 102/54 (70) 96 09/14/17 04:00 Room Air 09/14/17 04:00 71 09/14/17 03:00 72 09/14/17 02:00 74 09/14/17 01:00 75 09/14/17 00:00 98.0 73 18 99/51 (67) 96 09/14/17 00:00 73 09/14/17 00:00 Room Air 09/13/17 23:00 72 09/13/17 22:00 70 09/13/17 21:00 73 09/13/17 20:00 98.2 74 20 118/64 (82) 97 09/13/17 20:00 74 09/13/17 20:00 Room Air 09/13/17 18:00 77 09/13/17 17:00 73 09/13/17 16:00 70 09/13/17 15:36 98.5 77 16 117/63 (81) 100 09/13/17 15:00 79 09/13/17 14:00 90 I/O 09/13/17 09/13/17 09/13/17 09/14/17 09/14/17 09/14/17 07:00 15:00 23:00 07:00 15:00 23:00 Intake Total 240 ml 720 ml 240 ml Output Total 400 ml 450 ml 575 ml Balance -160 ml 270 ml -335 ml Intake Oral 240 ml 720 ml 240 ml Output Urine Total 400 ml 450 ml 575 ml # Bowel Movements 0 0 Laboratory Laboratory Tests Test 09/14/17 03:27 White Blood Count 9.8 Red Blood Count 2.76 Hemoglobin 8.0 Hematocrit 24.1 Mean Corpuscular Volume 87.2 Mean Corpuscular Hemoglobin 29.1 Mean Corpuscular Hemoglobin Concent 33.3 Red Cell Distribution Width 21.0 Platelet Count 230 Mean Platelet Volume 8.5 Neutrophils (%) (Auto) 70.8 Lymphocytes (%) (Auto) 13.9 Monocytes (%) (Auto) 12.1 Eosinophils (%) (Auto) 2.5 Basophils (%) (Auto) 0.7 Neutrophils # (Auto) 6.9 Lymphocytes # (Auto) 1.4 Monocytes # (Auto) 1.2 Eosinophils # (Auto) 0.2 Basophils # (Auto) 0.1 CBC Comment AUTO DIFF Differential Total Cells Counted 100 Neutrophils % (Manual) 79 Lymphocytes % 9 Monocytes % 10 Eosinophils % 2 Neutrophils # (Manual) 7.7 Nucleated Red Blood Cells 4 Differential Comment FINAL DIFF MANUAL Platelet Estimate NORMAL Platelet Morphology Comment NORMAL Polychromasia 2.2 Basophilic Stippling MOD Ovalocytes 1+ Acanthocytes OCC Blood Urea Nitrogen 47 Creatinine 5.41 Random Glucose 102 Total Protein 5.9 Albumin 3.2 Calcium Level 8.3 Alkaline Phosphatase 70 Aspartate Amino Transf (AST/SGOT) 19 Alanine Aminotransferase (ALT/SGPT) 18 Total Bilirubin 0.5 Sodium Level 139 Potassium Level 3.5 Chloride Level 101 Carbon Dioxide Level 26.3 Anion Gap 12 Estimat Glomerular Filtration Rate 10 Physical Exam HEENT: Overweight, normocephalic; atraumatic; pale , NECK: Neck is supple, short CHEST: Diminished breath sounds, low volumes, mild dyspnea at rest CARDIAC: Regular rate and rhythm ABDOMEN: Round, taut, nontender to light palpation; bowel sounds are present in all four quadrants. EXTREMITIES: Mild lower extremity edema. SKIN: Pale, no rash Assessment and Plan Plan Assessment: - Anemia- long history of anemia- has previously required multiple blood transfusions, has been told the anemia is secondary to CKD, previously on Procrit with no improvement. Last EGD and colonoscopy in 2013 --> Very poor prep, diverticulosis, hemorrhoids, and gastritis. H/H currently 5.5/17.6 receiving 3 U PRBCs per CCM Per ER notes, rectal exam revealed black stool that was Hemoccult positive. Pt denies NSAIDs. Drinks 1-2 liquor drinks a day. Smokes 1 PPD. - Positive troponin secondary to severe anemia- pt was placed on Heparin gtt- discussed with Dr. Anderson, machine design engineer on the phone, states OK to DC Heparin - CKD- per attending Discussed with Dr Anderson, cardiologists, states OK to proceed with EGD and discontinue Heparin gtt. Discussed with Dr. Bear. Discussed with THIERRY Wallace. Heparin gtt to be discontinued now, continue Protonix gtt, EGD after 4 pm today. RECONSULT FOR CONTINUED ANEMIA- REQUESTED BY CARDIOLOGY Pt continues to be anemic, with a drop in his hgb to 6.9 on 09/09. Cardiology is planning on PCI with AVR in a few weeks, but would like our service to evaluate for possible colonoscopy to rule out source of GIB. Our service already did EGD on 09/04 which revealed normal esophagus, gastritis in the gastric antrum, normal duodenal mucosa in the duodenal bulb, 2nd part of the duodenum, and 3rd part of the duodenum. Pathology (antrum) moderate chronic, focally active gastritis with intestinal metaplasia. Pt denies any obvious blood in stool (although he states he does not really look) constipation, diarrhea, abdominal pain, nausea, vomiting. 09/13/2017, follow-up on patient's symptoms, INR today for bleeding scan Status post colonoscopy performed on 09/12/2017 results include significant amount of stool still present in the ascending colon at the cecum hepatic flexure and the entire right colon. Moderate sigmoid diverticulosis, no large lesions seen but limited exam secondary to poor bowel prep 2017 Bleeding scan negative, no evidence of active bleeding. Plan High fiber diet PPI Avoid NSAIDS and Aspirin No seeds, nuts and popcorn in diet Follow-up in the GI office and return 1 month Colonoscopy repeat. Out patient Capsule Endoscopy. Chris Baez MD Sep 14, 2017 13:43
[2017-09-14] MEDS: ATORVASTATIN 80 MG TAB PO SCH (21:11)
[2017-09-15] VITALS (24 sets, daily range): BP systolic 102–154; BP diastolic 50–89; PULSE 69–95; RESP 16–18; TEMP 97.8–98.6; O2SAT 96–100
[2017-09-15] MEDS: CHLORHEXIDINE GLUCONATE 2 % 1 PACK (2 CLOTHS) TOP SCH (03:10)
[2017-09-15] MEDS: DOCUSATE SODIUM 50 MG/SENNA 8.6 MG TAB PO SCH ×2 (09:00→21:45)
[2017-09-15 09:55] LABS: AUTOMATED NEUTROPHIL # 9.1 TH/MM3 (1.8-7.7); BASOPHIL # 0.1 TH/MM3 (0-0.2); BASOPHIL % 0.5 % (0.0-2.0); EOSINOPHIL # 0.2 TH/MM3 (0-0.4); EOSINOPHIL % 2.2 % (0.0-4.0); HEMATOCRIT 28.4 % (39.0-51.0); HEMOGLOBIN 9.5 GM/DL (13.0-17.0); LYMPH % 10.4 % (9.0-44.0); LYMPHOCYTE # 1.2 TH/MM3 (1.0-4.8); MEAN CELL VOLUME 88.2 FL (80.0-100.0); MEAN CORPUSCULAR HEMOGLOBIN 29.3 PG (27.0-34.0); MEAN CORPUSCULAR HGB CONC 33.3 % (32.0-36.0); MEAN PLATELET VOLUME 8.8 FL (7.0-11.0); MONO % 6.1 % (0.0-8.0); MONOCYTE # 0.7 TH/MM3 (0-0.9); NEUT % 80.8 % (16.0-70.0); PLATELET COUNT 276 TH/MM3 (150-450); RED BLOOD COUNT 3.22 MIL/MM3 (4.50-5.90); WHITE BLOOD COUNT 11.2 TH/MM3 (4.0-11.0)
--- NOTE | 2017-09-15 10:12 | HHI.GIFU ---
Subjective Remarks Pt seen in dialysis Denies any nausea, vomiting, abdominal pain No obvious GIB (Merary Rossi) Objective Vitals I&O Vital Signs Date Time Temp Pulse Resp B/P (MAP) Pulse Ox O2 Delivery O2 Flow Rate FiO2 09/15/17 07:48 96 21 09/15/17 07:00 71 09/15/17 06:00 69 09/15/17 05:00 70 09/15/17 04:00 72 09/15/17 04:00 98.3 72 18 144/66 (92) 98 09/15/17 03:00 75 09/15/17 02:00 74 09/15/17 01:00 76 09/15/17 00:00 74 09/15/17 00:00 98.1 74 18 102/50 (67) 96 09/14/17 23:00 77 09/14/17 22:00 70 09/14/17 21:00 78 09/14/17 20:00 Room Air 09/14/17 20:00 98.4 75 20 112/63 (79) 97 09/14/17 20:00 75 09/14/17 19:56 99 21 09/14/17 18:15 98.6 75 20 141/73 (95) 100 09/14/17 18:03 77 09/14/17 17:59 98.0 74 16 111/69 100 09/14/17 17:00 78 09/14/17 16:18 98.0 76 18 117/75 (89) 100 09/14/17 16:00 70 09/14/17 15:00 75 09/14/17 14:45 98.0 75 18 128/69 100 09/14/17 14:29 98.4 76 133/72 100 09/14/17 14:00 76 09/14/17 13:55 95 21 09/14/17 13:00 67 09/14/17 12:00 71 09/14/17 11:46 97.8 78 16 118/66 (83) 99 09/14/17 11:00 74 I/O 09/14/1718 09/14/17 09/15/17 09/15/17 09/15/17 07:00 15:00 23:00 07:00 15:00 23:00 Intake Total 240 ml 15 ml 1135 ml 240 ml Output Total 575 ml 300 ml 400 ml Balance -335 ml 15 ml 835 ml -160 ml Intake Oral 240 ml 720 ml 240 ml Packed Cells 400 ml Blood Product IV Normal Saline Flush 15 ml 15 ml Output Urine Total 575 ml 300 ml 400 ml # Bowel Movements 0 1 0 Laboratory Laboratory Tests Test 09/15/17 08:49 White Blood Count 11.2 Red Blood Count 3.22 Hemoglobin 9.5 Hematocrit 28.4 Mean Corpuscular Volume 88.2 Mean Corpuscular Hemoglobin 29.3 Mean Corpuscular Hemoglobin Concent 33.3 Red Cell Distribution Width 19.0 Platelet Count 276 Mean Platelet Volume 8.8 Neutrophils (%) (Auto) 80.8 Lymphocytes (%) (Auto) 10.4 Monocytes (%) (Auto) 6.1 Eosinophils (%) (Auto) 2.2 Basophils (%) (Auto) 0.5 Neutrophils # (Auto) 9.1 Lymphocytes # (Auto) 1.2 Monocytes # (Auto) 0.7 Eosinophils # (Auto) 0.2 Basophils # (Auto) 0.1 CBC Comment AUTO DIFF Imaging Last Impressions GI Bleed Scan Nuclear Medicine 09/13/17 0000 Signed Impressions: CONCLUSION: 1. No focal abnormality to suggest active hemorrhage. Catheter Placement X-Ray 09/12/17 0000 Signed Impressions: CONCLUSION: 1. Uncomplicated PermaCath placement as above. Chest X-Ray 09/04/17 0600 Signed Impressions: CONCLUSION: Cardiomegaly with minimal basilar atelectasis. No significant change from September 03. Physical Exam HEENT: Normocephalic; atraumatic CHEST: Even/unlabored CARDIAC: RRR ABDOMEN: Round, soft, nontender, bowel sounds active EXTREMITIES: BLE edema SKIN: Pale, no rash Neurologic: Alert and oriented x 3 (Merary Rossi) Assessment and Plan Plan Assessment: - Anemia- long history of anemia- has previously required multiple blood transfusions, has been told the anemia is secondary to CKD, previously on Procrit with no improvement. Last EGD and colonoscopy in 2013 --> Very poor prep, diverticulosis, hemorrhoids, and gastritis. H/H currently 5.5/17.6 receiving 3 U PRBCs per CCM Per ER notes, rectal exam revealed black stool that was Hemoccult positive. Pt denies NSAIDs. Drinks 1-2 liquor drinks a day. Smokes 1 PPD. - Positive troponin secondary to severe anemia- pt was placed on Heparin gtt- discussed with Dr. Anderson, utility engineer on the phone, states OK to DC Heparin - CKD- per attending Discussed with Dr Anedrson, cardiologists, states OK to proceed with EGD and discontinue Heparin gtt. Discussed with Dr. Bear. Discussed with THIERRY Wallace. Heparin gtt to be discontinued now, continue Protonix gtt, EGD after 4 pm today. RECONSULT FOR CONTINUED ANEMIA- REQUESTED BY CARDIOLOGY Pt continues to be anemic, with a drop in his hgb to 6.9 on 09/09. Cardiology is planning on PCI with AVR in a few weeks, but would like our service to evaluate for possible colonoscopy to rule out source of GIB. Our service already did EGD on 09/04 which revealed normal esophagus, gastritis in the gastric antrum, normal duodenal mucosa in the duodenal bulb, 2nd part of the duodenum, and 3rd part of the duodenum. Pathology (antrum) moderate chronic, focally active gastritis with intestinal metaplasia. Pt denies any obvious blood in stool (although he states he does not really look) constipation, diarrhea, abdominal pain, nausea, vomiting. Colonoscopy --> Significant amount of stool was present in the ascending colon, at the cecum, and hepatic flexure and entire right colon. Moderate sigmoid diverticulosis was noted. No large lesion seen, limited exam secondary to poor bowel prep. NM bleeding scan (09/13) No focal abnormality to suggest active hemorrhage (09/15) Pt seen in dialysis. No obvious GIB. H/H has been low but stable since transfusion on the . Pt received one unit of PRBCs yesterday, hgb from 8 to 9.5. Cardiology hoping to put pt on blood thinners after PCI with plans for TAVR in a few weeks. GIB needs to be rule out so that blood thinners can be started. Will plan for repeat colonoscopy tomorrow Plan Repeat colonoscopy tomorrow Obtain consent Clear liquids today Golytel prep NPO after MN Monitor H/H Further recommendations based on findings tomorrow Pt has been seen and examined by myself and Dr. Wills and this note is written on his behalf (Merary Rossi) Physician Comments Seen and examined with FERCHO, no active bleeding reported. Bleeding scan -ve. Vardiac [place] hold till clearance by GI. Colonoscopy planned tomorrow.Discussed with who is a nurse. (William Wills MD) Merary Rossi Sep 15, 2017 10:12 William Wills MD Sep 15, 2017 16:04
[2017-09-15 10:15] LABS: ALBUMIN 3.4 GM/DL (3.4-5.0); AST (GOT) 20 U/L (15-37); BICARBONATE 22.3 MEQ/L (21.0-32.0); BLOOD UREA NITROGEN 55 MG/DL (7-18); CALCIUM 8.7 MG/DL (8.5-10.1); CHLORIDE 103 MEQ/L (98-107); CREATININE 5.42 MG/DL (0.60-1.30); GLOMERULAR FILTRATION RATE 10 ML/MIN (>89); GLUCOSE,RANDOM 146 MG/DL (74-106); SODIUM (NA) 139 MEQ/L (136-145)
[2017-09-15 10:17] LABS: ALT (GPT) 17 U/L (12-78)
[2017-09-15 10:19] LABS: ALKALINE PHOSPHATASE 84 U/L (45-117); TOTAL BILIRUBIN ADULT 0.7 MG/DL (0.2-1.0); TOTAL PROTEIN 6.5 GM/DL (6.4-8.2)
[2017-09-15] MEDS: EPOETIN ALFA 10,000 UNITS/ML VIAL IV PUSH PRN (11:00)
[2017-09-15 11:10] LABS: BANDS 8 % (0-6); CORRECTED NUCLEATED RBC 2 /100 WBC (0-0); LYMPHOCYTES 13 % (9-44); MONOCYTES 12 % (0-8); MYELOCYTES 1 % (0-0); NEUTROPHIL # MANUAL DIFF 8.4 TH/MM3 (1.8-7.7); NUCLEATED RED BLOOD CELL 2 (0-0); POLYS (SEG NEUTROPHILS) 66 % (16-70)
[2017-09-15 11:11] LABS: OVALOCYTES 1+ (NORMAL)
[2017-09-15 11:12] LABS: POLYCHROMASIA 2.1 % (0.0-1.9)
--- NOTE | 2017-09-15 11:24 | HHI.NPPN ---
Subjective History of Present Illness 72-year-old white male with history of hypertension, chronic kidney disease approaching ESRD who developed chest pain and shortness of breath Review of Systems General Constitutional: Fatigue Objective Data Data Vital Signs Date Time Temp Pulse Resp B/P (MAP) Pulse Ox O2 Delivery O2 Flow Rate FiO2 09/15/17 07:48 96 21 09/15/17 07:45 97.8 70 16 138/74 (95) 100 09/15/17 07:45 100 Room Air 09/15/17 07:00 71 09/15/17 06:00 69 09/15/17 05:00 70 09/15/17 04:00 72 09/15/17 04:00 98.3 72 18 144/66 (92) 98 09/15/17 03:00 75 09/15/17 02:00 74 09/15/17 01:00 76 09/15/17 00:00 74 09/15/17 00:00 98.1 74 18 102/50 (67) 96 09/14/17 23:00 77 09/14/17 22:00 70 09/14/17 21:00 78 09/14/17 20:00 Room Air 09/14/17 20:00 98.4 75 20 112/63 (79) 97 09/14/17 20:00 75 09/14/17 19:56 99 21 09/14/17 18:15 98.6 75 20 141/73 (95) 100 09/14/17 18:03 77 09/14/17 17:59 98.0 74 16 111/69 100 09/14/17 17:00 78 09/14/17 16:18 98.0 76 18 117/75 (89) 100 09/14/17 16:00 70 09/14/17 15:00 75 09/14/17 14:45 98.0 75 18 128/69 100 09/14/17 14:29 98.4 76 133/72 100 09/14/17 14:00 76 09/14/17 13:55 95 21 09/14/17 13:00 67 09/14/17 12:00 71 09/14/17 11:46 97.8 78 16 118/66 (83) 99 -: 09/15/17 0849 09/15/17 0849 Physical Exam General Appearance: Well Developed, Well Nourished Pulmonary Resp Exam: Crackles, Decreased Bases Cardiology CV Exam: Regular, Normal Sinus Rhythm, Murmur Gastrointestinal/Abdomen GI Exam: Soft, Non-Tender, Bowel Sounds Present Extremeties Extremities Exam: Trace Edema Neurologic Neuro Exam: Alert, Awake, Oriented Assessment/Plan Problem List: (1) Acute renal failure ICD Codes: N17.9 - Acute kidney failure, unspecified Plan: Continue HD MWF. heart catheterization done severe two-vessel coronary artery disease LAD 80% and right coronary artery total occlusion severely AV stenosis TAVR and coronary stent planned after GI issues resolve. Continue supportive care Permcath in place seen during HD UF 3 L 3 K bath (2) CKD (chronic kidney disease) stage 4, GFR 15-29 ml/min ICD Codes: N18.4 - Chronic kidney disease, stage 4 (severe) Plan: Patient may have progress to stage V (3) GI bleed ICD Codes: K92.2 - Gastrointestinal hemorrhage, unspecified Status: Acute Plan: GI following. (4) Anemia ICD Codes: D64.9 - Anemia Status: Acute Plan: Status post blood transfusion (5) ACS (acute coronary syndrome) ICD Codes: I24.9 - Acute ischemic heart disease, unspecified Status: Acute Plan: Cardiology following. s/p Cath. Has CAD and . (6) Hypertension ICD Codes: I10 - Essential (primary) hypertension Plan: Continue to monitor Gaurav Shah MD Sep 15, 2017 11:24
[2017-09-15] MEDS: ASPIRIN EC 81 MG TABEC PO SCH (12:56)
[2017-09-15] MEDS: MULTIVITAMIN TAB PO SCH (12:56)
[2017-09-15] MEDS: FUROSEMIDE 40 MG TAB PO SCH (12:56)
[2017-09-15] MEDS: SODIUM CHLORIDE 0.9% FLUSH 10 ML FLUSH IV FLUSH SCH ×2 (12:57→21:45)
[2017-09-15] MEDS: AMIODARONE 200 MG TAB PO SCH (12:57)
[2017-09-15] MEDS: THIAMINE HCL 100 MG TAB PO SCH (12:57)
[2017-09-15] MEDS: FOLIC ACID 1 MG TAB PO SCH (12:57)
[2017-09-15] MEDS: PANTOPRAZOLE SOD 40 MG DELAYED RELEASE TAB PO SCH (12:57)
[2017-09-15] MEDS: CHOLECALCIFEROL (VIT D3) 1000 UNIT TAB PO SCH (12:58)
[2017-09-15] MEDS: METOPROLOL SUCCINATE 50 MG EXTENDED RELEASE TAB PO SCH (12:58)
--- NOTE | 2017-09-15 15:31 | HHI.PR ---
Subjective Remarks Patient seen during dialysis. He reports he is feeling okay today. He is hoping to have the heart catheterization and stent placement soon. Objective Vitals Vital Signs Date Time Temp Pulse Resp B/P (MAP) Pulse Ox O2 Delivery O2 Flow Rate FiO2 09/15/17 14:00 84 09/15/17 13:12 97.9 95 16 115/62 (79) 100 09/15/17 13:00 86 09/15/17 07:48 96 21 09/15/17 07:45 97.8 70 16 138/74 (95) 100 09/15/17 07:45 100 Room Air 09/15/17 07:00 71 09/15/17 06:00 69 09/15/17 05:00 70 09/15/17 04:00 72 09/15/17 04:00 98.3 72 18 144/66 (92) 98 09/15/17 03:00 75 09/15/17 02:00 74 09/15/17 01:00 76 09/15/17 00:00 74 09/15/17 00:00 98.1 74 18 102/50 (67) 96 09/14/17 23:00 77 09/14/17 22:00 70 09/14/17 21:00 78 09/14/17 20:00 Room Air 09/14/17 20:00 98.4 75 20 112/63 (79) 97 09/14/17 20:00 75 09/14/17 19:56 99 21 09/14/17 18:15 98.6 75 20 141/73 (95) 100 09/14/17 18:03 77 09/14/17 17:59 98.0 74 16 111/69 100 09/14/17 17:00 78 09/14/17 16:18 98.0 76 18 117/75 (89) 100 09/14/17 16:00 70 I/O 09/14/17 09/14/17 09/14/17 09/15/17 09/15/17 09/15/17 07:00 15:00 23:00 07:00 15:00 23:00 Intake Total 240 ml 15 ml 1135 ml 240 ml Output Total 575 ml 300 ml 400 ml Balance -335 ml 15 ml 835 ml -160 ml Intake Oral 240 ml 720 ml 240 ml Packed Cells 400 ml Blood Product IV Normal Saline Flush 15 ml 15 ml Output Urine Total 575 ml 300 ml 400 ml # Bowel Movements 0 1 0 Result Diagram: 09/15/17 0849 09/15/17 0849 Objective Remarks GENERAL: This is a well-nourished, well-developed patient, in no apparent distress. CARDIOVASCULAR: Normal rate and regular rhythm. 2 out of 6 OMID murmur best heard over the left upper sternal border. RESPIRATORY: Good respiratory efforts. Diminished breath sounds at the bases. Otherwise breath sounds equal and clear to auscultation bilaterally. GASTROINTESTINAL: Abdomen soft, non-tender, non-distended. Normal active bowel sounds MUSCULOSKELETAL: Extremities without cyanosis, or edema. NEURO: Alert & Oriented x4 to person, place, time, situation. Moves all ext x4 PSYCH: Appropriate mood and affect. A/P Assessment and Plan 72-year-old male admitted secondary to chest pain status post NSTEMI. chronic kidney disease present at baseline. NSTEMI CAD Paroxysmal a-fif Aortic Stenosis HTN Plan for high risk PCI once GIB resolves. TVAR plan for the future per Cardiology Continue Norvasc Continue metoprolol Continue aspirin Continue amiodarone Cardiology following Follow on telemetry Severe Anemia Recurrent GI bleed bleeding scan negative Plan for repeat colonoscopy in AM per GI S/P transfusion, Monitor H&H and transfuse as needed Continue iron supplement Continue Epogen End-stage renal disease Nephrology following Continue dialysis Discharge Planning Patient to undergo heart cath once bleeding issues resolve. Darby Granados MD Sep 15, 2017 15:31
[2017-09-15] MEDS ORDERED: PEG (High)/E-LYTE SOLN 4000 ML BTL PO ONE (16:00)
[2017-09-15] MEDS ORDERED: BISACODYL EC 5 MG TABEC PO ONE (20:00)
[2017-09-15] MEDS: ATORVASTATIN 80 MG TAB PO SCH (21:45)
[2017-09-15] MEDS: SODIUM CHLOR 0.9% 1000 ML INJ 1,000 ML IV SCH (23:21)
[2017-09-16] VITALS (27 sets, daily range): BP systolic 97–126; BP diastolic 55–85; PULSE 60–106; RESP 16–20; TEMP 97.4–99.2; O2SAT 97–100
[2017-09-16] MEDS ORDERED: LACTATED RINGER'S 1000 ML IV PRN (02:45)
[2017-09-16] MEDS ORDERED: POVIDONE IODINE 5% (ANTISEPSIS KIT) 4 APPLICATIONS EACH NARE PRN (02:45)
[2017-09-16] MEDS ORDERED: SODIUM CHLORID 0.9% 500 ML IV PRN (02:45)
[2017-09-16] MEDS ORDERED: CHLORHEXIDINE GLUCONATE 2 % 1 PACK (2 CLOTHS) TOPICAL PRN (02:45)
[2017-09-16] MEDS: CHLORHEXIDINE GLUCONATE 2 % 1 PACK (2 CLOTHS) TOP SCH (04:00)
[2017-09-16 05:53] LABS: HEMATOCRIT 25.8 % (39.0-51.0); HEMOGLOBIN 8.5 GM/DL (13.0-17.0); MEAN CELL VOLUME 87.6 FL (80.0-100.0); MEAN CORPUSCULAR HGB CONC 33.1 % (32.0-36.0); MEAN PLATELET VOLUME 8.1 FL (7.0-11.0); PLATELET COUNT 253 TH/MM3 (150-450); RED BLOOD COUNT 2.94 MIL/MM3 (4.50-5.90); RED CELL DISTRIBUTION WIDTH 20.2 % (11.6-17.2); WHITE BLOOD COUNT 12.2 TH/MM3 (4.0-11.0)
[2017-09-16 06:26] LABS: BICARBONATE 28.5 MEQ/L (21.0-32.0); CALCIUM 8.2 MG/DL (8.5-10.1); CREATININE 4.04 MG/DL (0.60-1.30)
[2017-09-16] MEDS: CHOLECALCIFEROL (VIT D3) 1000 UNIT TAB PO SCH (08:51)
[2017-09-16] MEDS: THIAMINE HCL 100 MG TAB PO SCH (08:51)
[2017-09-16] MEDS: PANTOPRAZOLE SOD 40 MG DELAYED RELEASE TAB PO SCH (08:51)
[2017-09-16] MEDS: MULTIVITAMIN TAB PO SCH (08:51)
[2017-09-16] MEDS: FOLIC ACID 1 MG TAB PO SCH (08:52)
[2017-09-16] MEDS: AMIODARONE 200 MG TAB PO SCH (08:52)
[2017-09-16] MEDS: METOPROLOL SUCCINATE 50 MG EXTENDED RELEASE TAB PO SCH (08:52)
[2017-09-16] MEDS: FUROSEMIDE 40 MG TAB PO SCH (08:52)
[2017-09-16] MEDS: SODIUM CHLORIDE 0.9% FLUSH 10 ML FLUSH IV FLUSH SCH ×2 (09:00→20:55)
[2017-09-16] MEDS: ASPIRIN EC 81 MG TABEC PO SCH (09:00)
[2017-09-16] MEDS: DOCUSATE SODIUM 50 MG/SENNA 8.6 MG TAB PO SCH ×2 (09:00→20:55)
--- NOTE | 2017-09-16 09:22 | PD.CARD.PN ---
Subjective Subjective Remarks asked to follow from planned PCI / TAVR coordination no complaints of CP repeat colonoscopy planned for today Objective Medications Current Medications Medications (Trade) Dose Ordered Sig/Marylou Route Start Time Stop Time Status Last Admin Heparin Sodium/ Dextrose 250 ml @ 10.417 mls/ hr TITRATE PRN IV 09/03/17 23:30 Future Hold 09/03/17 23:56 Sodium Chloride 1,000 ml @ 30 mls/hr Q24H IV 09/03/17 23:21 09/08/17 22:41 (NS Flush) 2 ml UNSCH PRN IV FLUSH 09/03/17 23:30 (NS Flush) 2 ml BID IV FLUSH 09/04/17 09:00 09/15/17 21:45 (Tylenol) 650 mg Q6H PRN PO 09/03/17 23:30 (Morphine Inj) 2 mg Q2H PRN IV PUSH 09/03/17 23:30 (Zofran Odt) 4 mg Q6H PRN PO 09/03/17 23:30 (Duoneb Neb) 1 ampule Q2HR NEB PRN INH 09/03/17 23:30 09/04/17 12:14 ([facility] [place] [facility] Information) 1 Q361D XX 09/03/17 23:30 09/03/17 23:30 (Chlorhexidine 2% Cloth) Taper DAILY@04 TOP 09/04/17 04:00 08/31/18 03:59 09/09/17 03:57 (Chlorhexidine 2% Cloth) 3 pack UNSCH PRN TOP 09/03/17 23:30 (Sylvie-Colace) 1 tab BID PO 09/04/17 09:00 09/15/17 21:45 (Milk Of Magnesia Liq) 30 ml Q12H PRN PO 09/03/17 23:30 (Senokot) 17.2 mg Q12H PRN PO 09/03/17 23:30 (Dulcolax Supp) 10 mg DAILY PRN RECTAL 09/03/17 23:30 (Lactulose Liq) 30 ml DAILY PRN PO 09/03/17 23:30 (Norvasc) 10 mg DAILY PO 09/04/17 09:00 09/16/17 08:52 (Lipitor) 80 mg HS PO 09/04/17 21:00 09/15/17 21:45 (Vitamin D3) 1,000 units DAILY PO 09/04/17 09:00 09/16/17 08:51 (Toprol Xl) 50 mg DAILY PO 09/04/17 09:00 09/16/17 08:52 (Ecotrin Ec) 81 mg DAILY PO 09/04/17 09:00 09/15/17 12:56 Sodium Chloride 1,000 ml @ 0 mls/hr Q0M PRN OTHER 09/05/17 10:20 (Heparin Inj) 8,000 units UNSCH PRN IV FLUSH 09/05/17 10:30 Sodium Chloride 1,000 ml @ 200 mls/hr Q5H PRN IV 09/05/17 10:20 Sodium Chloride 1,000 ml @ 0 mls/hr Q0M PRN OTHER 09/05/17 10:20 (Mannitol Inj) 12.5 gm UNSCH PRN IV 09/05/17 10:30 Albumin Human 100 ml @ 60 mls/hr UNSCH PRN IV 09/05/17 10:30 09/10/17 09:17 (NS Flush) 5 ml UNSCH PRN IV FLUSH 09/05/17 10:30 (Heparin Inj) UNSCH PRN .XX 09/05/17 10:30 09/12/17 11:51 (Gentamicin Inj) 20 mg UNSCH PRN OTHER 09/05/17 10:30 09/12/17 11:51 (Zofran Inj) 4 mg UNSCH PRN IV PUSH 09/05/17 10:30 (Tylenol) 650 mg UNSCH PRN PO 09/05/17 10:30 (Benadryl) 25 mg UNSCH PRN PO 09/05/17 10:30 (Nitrostat Sl) 0.4 mg UNSCH PRN SL 09/05/17 10:30 (Catapres) 0.1 mg UNSCH PRN PO 09/05/17 10:30 (Gelfoam 12 Mm/7 Mm Top) 1 foam UNSCH PRN TOP 09/05/17 10:30 (Protonix) 40 mg DAILY PO 09/06/17 09:00 09/16/17 08:51 (NS Flush) UNSCH PRN IV FLUSH 09/05/17 14:15 (Heparin Inj) UNSCH PRN IV FLUSH 09/05/17 14:15 (Vitamin B1) 100 mg DAILY PO 09/05/17 16:30 09/16/17 08:51 (Folate) 1 mg DAILY PO 09/06/17 09:00 09/16/17 08:52 (Theragran) 1 tab DAILY PO 09/06/17 09:00 09/16/17 08:51 (Epogen Inj) 10,000 units UNSCH PRN IV PUSH 09/06/17 12:15 09/15/17 11:00 (Lasix) 40 mg DAILY PO 09/09/17 09:00 09/16/17 08:52 (Cordarone) 200 mg DAILY PO 09/10/17 09:00 09/16/17 08:52 (NS Flush) UNSCH PRN IV FLUSH 09/12/17 16:45 (Heparin Inj) UNSCH PRN IV FLUSH 09/12/17 16:45 Lactated Ringer's 1,000 ml @ 30 mls/hr Q24H PRN IV 09/16/17 02:45 09/19/17 02:44 Sodium Chloride 500 ml @ 30 mls/hr [id number] PRN IV 09/16/17 02:45 09/19/17 02:44 (Betadine 5% Antisepsis Kit) 1 applic [employer] PRN EACH NARE 09/16/17 02:45 09/19/17 02:44 (Chlorhexidine 2% Cloth) 3 pack [employer] PRN TOPICAL 09/16/17 02:45 09/19/17 02:44 Vital Signs / I&O Vital Signs Date Time Temp Pulse Resp B/P (MAP) Pulse Ox O2 Delivery O2 Flow Rate FiO2 09/16/17 06:00 106 09/16/17 05:00 80 09/16/17 04:00 81 09/16/17 03:30 99.2 86 16 107/64 (78) 99 09/16/17 03:00 82 09/16/17 02:00 80 09/16/17 01:00 78 09/16/17 00:00 86 09/15/17 23:30 98.6 90 16 117/68 (84) 99 09/15/17 23:00 91 09/15/17 22:00 82 09/15/17 21:00 80 09/15/17 20:00 78 09/15/17 20:00 100 Room Air 09/15/17 20:00 98.5 84 16 135/89 (104) 100 09/15/17 19:00 88 09/15/17 18:00 81 09/15/17 17:00 80 09/15/17 16:00 78 09/15/17 15:53 98.0 87 16 154/72 (99) 100 09/15/17 15:00 76 09/15/17 14:00 84 09/15/17 13:12 97.9 95 16 115/62 (79) 100 09/15/17 13:00 86 I/O 09/15/17 09/15/17 09/15/17 09/16/17 09/16/17 09/16/17 07:00 15:00 23:00 07:00 15:00 23:00 Intake Total 240 ml 2000 ml 240 ml Output Total 400 ml 950 ml Balance -160 ml 1050 ml 240 ml Intake Oral 240 ml 2000 ml 240 ml Output Urine Total 400 ml 950 ml # Voids 3 # Bowel Movements 0 1 3 Physical Exam GENERAL: SKIN: Warm and dry. HEAD: Normocephalic. EYES: No scleral icterus. No injection or drainage. NECK: Supple, trachea midline. No JVD or lymphadenopathy. CARDIOVASCULAR: Regular rate and rhythm without murmurs, gallops, or rubs. RESPIRATORY: Breath sounds equal bilaterally. No accessory muscle use. GASTROINTESTINAL: Abdomen soft, non-tender, nondistended. MUSCULOSKELETAL: No cyanosis, or edema. BACK: Nontender without obvious deformity. No CVA tenderness. Laboratory Laboratory Tests Test 09/16/17 05:33 White Blood Count 12.2 TH/MM3 Red Blood Count 2.94 MIL/MM3 Hemoglobin 8.5 GM/DL Hematocrit 25.8 % Mean Corpuscular Volume 87.6 FL Mean Corpuscular Hemoglobin 29.0 PG Mean Corpuscular Hemoglobin Concent 33.1 % Red Cell Distribution Width 20.2 % Platelet Count 253 TH/MM3 Mean Platelet Volume 8.1 FL Blood Urea Nitrogen 29 MG/DL Creatinine 4.04 MG/DL Random Glucose 90 MG/DL Calcium Level 8.2 MG/DL Sodium Level 143 MEQ/L Potassium Level 3.3 MEQ/L Chloride Level 103 MEQ/L Carbon Dioxide Level 28.5 MEQ/L Anion Gap 12 MEQ/L Estimat Glomerular Filtration Rate 15 ML/MIN Imaging Last Impressions GI Bleed Scan Nuclear Medicine 09/13/17 0000 Signed Impressions: CONCLUSION: 1. No focal abnormality to suggest active hemorrhage. Catheter Placement X-Ray 09/12/17 0000 Signed Impressions: CONCLUSION: 1. Uncomplicated PermaCath placement as above. Chest X-Ray 09/04/17 0600 Signed Impressions: CONCLUSION: Cardiomegaly with minimal basilar atelectasis. No significant change from September 03. Assessment and Plan Problem List: (1) Non-ST elevation AL (NSTEMI) ICD Codes: I21.4 - Non-ST elevation AL (NSTEMI) Status: Acute (2) Paroxysmal atrial fibrillation ICD Codes: I48.0 - Paroxysmal atrial fibrillation Status: Acute (3) Aortic stenosis ICD Codes: I35.0 - Nonrheumatic aortic (valve) stenosis Status: Chronic Assessment and Plan severe aortic stenosis - TAVR workup in progress. order TAVR CTA. order PFTs. Evaluation by two CT surgeons for TAVR vs surgical AVR NSTEMI - severe 2 Vz CAD (collateralized/occluded RCA and severe mid LAD). Tenatively planning high risk PCI mid LAD when cleared by GI ESRD - on HD anemia - GI bleeding. source not identified. EGD with gastritis. repeat colonoscopy today +/- small bowel capsule endoscopy. will need GI clearance for asa 81 + plavix 75. if no obvious source identified and "cleared" for antiplatelet therapy, we would start regimen prior to planned PCI (duration of time would need to be discussed with GI, 1 week vs 2 weeks, ect) to detemine if antiplatelet therapy is going to be an issue. Once PCI, we will be unable to discontinue antiplatelet therapy for 8 weeks due to increased risk for stent thrombosis and large myocardial infarction. will discuss case with GI Problem Qualifiers (1) Aortic stenosis: Qualified Codes: I35.0 - Nonrheumatic aortic (valve) stenosis Roldan Pryor MD Sep 16, 2017 09:22
[2017-09-16] MEDS ORDERED: PROPOFOL 200 MG/20 ML AMP IV ONE (12:00)
--- NOTE | 2017-09-16 12:24 | HHI.PR ---
Subjective Remarks Patient to have colonoscopy today. He denies any new cardiovascular symptoms. Objective Vitals Vital Signs Date Time Temp Pulse Resp B/P (MAP) Pulse Ox O2 Delivery O2 Flow Rate FiO2 09/16/17 09:30 99 09/16/17 06:00 106 09/16/17 05:00 80 09/16/17 04:00 81 09/16/17 03:30 99.2 86 16 107/64 (78) 99 09/16/17 03:00 82 09/16/17 02:00 80 09/16/17 01:00 78 09/16/17 00:00 86 09/15/17 23:30 98.6 90 16 117/68 (84) 99 09/15/17 23:00 91 09/15/17 22:00 82 09/15/17 21:00 80 09/15/17 20:00 78 09/15/17 20:00 100 Room Air 09/15/17 20:00 98.5 84 16 135/89 (104) 100 09/15/17 19:00 88 09/15/17 18:00 81 09/15/17 17:00 80 09/15/17 16:00 78 09/15/17 15:53 98.0 87 16 154/72 (99) 100 09/15/17 15:00 76 09/15/17 14:00 84 09/15/17 13:12 97.9 95 16 115/62 (79) 100 09/15/17 13:00 86 I/O 09/15/17 09/15/17 09/15/17 09/16/17 09/16/17 09/16/17 07:00 15:00 23:00 07:00 15:00 23:00 Intake Total 240 ml 2000 ml 240 ml Output Total 400 ml 950 ml Balance -160 ml 1050 ml 240 ml Intake Oral 240 ml 2000 ml 240 ml Output Urine Total 400 ml 950 ml # Voids 3 # Bowel Movements 0 1 3 Result Diagram: 09/16/1753209/16/17 05 Objective Remarks GENERAL: This is a well-nourished, well-developed patient, in no apparent distress. CARDIOVASCULAR: Normal rate and regular rhythm. 2 out of 6 OMID murmur best heard over the left upper sternal border. RESPIRATORY: Good respiratory efforts. Diminished breath sounds at the bases. Otherwise breath sounds equal and clear to auscultation bilaterally. GASTROINTESTINAL: Abdomen soft, non-tender, non-distended. Normal active bowel sounds MUSCULOSKELETAL: Extremities without cyanosis, or edema. NEURO: Alert & Oriented x4 to person, place, time, situation. Moves all ext x4 PSYCH: Appropriate mood and affect. A/P Assessment and Plan 72-year-old male admitted secondary to chest pain status post NSTEMI. chronic kidney disease present at baseline. NSTEMI CAD Paroxysmal a-fif Aortic Stenosis HTN Plan for high risk PCI once GIB resolves. Repeat colonoscopy today per GI. TVAR plan for the future per Cardiology. CT surgery consulted. Continue Norvasc Continue metoprolol Continue aspirin Continue amiodarone Cardiology following Follow on telemetry Severe Anemia Recurrent GI bleed bleeding scan negative Plan for repeat colonoscopy today per GI S/P transfusion, Monitor H&H and transfuse as needed Continue iron supplement Continue Epogen End-stage renal disease Nephrology following Continue dialysis Replace K Discharge Planning Patient to undergo heart cath once bleeding issues resolve. Repeat colonoscopy today. Darby Granados MD Sep 16, 2017 12:24
--- NOTE | 2017-09-16 12:34 | HHI.NPPN ---
Subjective History of Present Illness 72-year-old white male with history of hypertension, chronic kidney disease approaching ESRD who developed chest pain and shortness of breath Review of Systems General Constitutional: Fatigue Objective Data Data Vital Signs Date Time Temp Pulse Resp B/P (MAP) Pulse Ox O2 Delivery O2 Flow Rate FiO2 09/16/17 09:30 99 09/16/17 06:00 106 09/16/17 05:00 80 09/16/17 04:00 81 09/16/17 03:30 99.2 86 16 107/64 (78) 99 09/16/17 03:00 82 09/16/17 02:00 80 09/16/17 01:00 78 09/16/17 00:00 86 09/15/17 23:30 98.6 90 16 117/68 (84) 99 09/15/17 23:00 91 09/15/17 22:00 82 09/15/17 21:00 80 09/15/17 20:00 78 09/15/17 20:00 100 Room Air 09/15/17 20:00 98.5 84 16 135/89 (104) 100 09/15/17 19:00 88 09/15/17 18:00 81 09/15/17 17:00 80 09/15/17 16:00 78 09/15/17 15:53 98.0 87 16 154/72 (99) 100 09/15/17 15:00 76 09/15/17 14:00 84 09/15/17 13:12 97.9 95 16 115/62 (79) 100 09/15/17 13:00 86 -: 09/16/17 0533 09/16/17 0533 Physical Exam General Appearance: Well Developed, Well Nourished Pulmonary Resp Exam: Crackles, Decreased Bases Cardiology CV Exam: Regular, Normal Sinus Rhythm, Murmur Gastrointestinal/Abdomen GI Exam: Soft, Non-Tender, Bowel Sounds Present Extremeties Extremities Exam: Trace Edema Neurologic Neuro Exam: Alert, Awake, Oriented Assessment/Plan Problem List: (1) Acute renal failure ICD Codes: N17.9 - Acute kidney failure, unspecified Plan: Continue HD MWF. heart catheterization done severe two-vessel coronary artery disease LAD 80% and right coronary artery total occlusion severely AV stenosis TAVR and coronary stent planned after GI issues resolve. Continue supportive care Permcath in place Going to have repeat colonoscopy today Possible stent after diet or may be related Need outpatient dialysis setup (2) CKD (chronic kidney disease) stage 4, GFR 15-29 ml/min ICD Codes: N18.4 - Chronic kidney disease, stage 4 (severe) Plan: Patient may have progress to stage V (3) GI bleed ICD Codes: K92.2 - Gastrointestinal hemorrhage, unspecified Status: Acute Plan: GI following. (4) Anemia ICD Codes: D64.9 - Anemia Status: Acute Plan: Status post blood transfusion (5) ACS (acute coronary syndrome) ICD Codes: I24.9 - Acute ischemic heart disease, unspecified Status: Acute Plan: Cardiology following. s/p Cath. Has CAD and . (6) Hypertension ICD Codes: I10 - Essential (primary) hypertension Plan: Continue to monitor Gaurav Shah MD Sep 16, 2017 12:34
--- NOTE | 2017-09-16 14:38 | GIPROC ---
[facility] [address] [facility]. [facility], [address] COLONOSCOPY PROCEDURE REPORT EXAM DATE: 09/16/2017 PATIENT NAME: Dayday Ward MR #: [id number] BIRTHDATE: 1945 ENDOSCOPIST: William Wills MD ORDER #: [id number] [employer]SUMER [employer]ENDING MANAGER: Brandi Valdez and Akila Frazier STATUS: inpatient INDICATIONS: The patient is a 72 yr old male here for a colonoscopy due to iron deficiency anemia PROCEDURE PERFORMED: Colonoscopy with biopsy MEDICATIONS: None and Per Anesthesia. PREP QUALITY: The [place] Bowel Prep Score was Right colon 1, Mid colon 2, and Left colon 3. Total = 6. PREP TYPE:GoLytely PREP TYPE:Dulcolax: ESTIMATED BLOOD LOSS: None CONSENT: The patient understands the risks and benefits of the procedure and understands that these risks include, but are not limited to: sedation, allergic reaction, infection, perforation and/or bleeding. Alternative means of evaluation and treatment include, among others: physical exam, x-rays, and/or surgical intervention. The patient elects to proceed with this endoscopic procedure. medical equipment was checked for proper function. Hand hygiene and appropriate measures for infection prevention was taken. After the risks, benefits and alternatives of the procedure were thoroughly explained, Informed consent was verified, confirmed and timeout was successfully executed by the treatment team. A digital exam revealed external hemorrhoids The Pentax [id number] endoscope was introduced through the anus and advanced to the cecum, which was identified by both the appendix and ileocecal valve. The instrument was then slowly withdrawn as the colon was fully examined. COLON FINDINGS: Mild diverticulosis was noted in the sigmoid colon. No bleeding was noted from the diverticulosis. A polypoid shaped sessile polyp ranging between 3-5mm in size was found in the sigmoid colon. A polypectomy was performed with cold forceps. The resection was complete and the polyp tissue was completely retrieved. Retroflexed views revealed internal hemorrhoids and Retroflexed views revealed small internal hemorrhoids The scope was then completely withdrawn from the patient and the procedure terminated. PROCEDURE WITHDRAWAL TIME:7minutes ADVERSE EVENTS: There were no complications. IMPRESSIONS: 1. Mild diverticulosis was noted in the sigmoid colon 2. A sessile polyp ranging between 3-5mm in size was found in the sigmoid colon; polypectomy was performed with cold forceps 3. Retroflexed views revealed internal hemorrhoids 4. Retroflexed views revealed small internal hemorrhoids 5. Revealed external hemorrhoids RECOMMENDATIONS: 1. Await biopsy results. Biopsy results will not be ready for 7-10 days. If you don't hear from us in two weeks, call our office for results. 2. Benefiber 2 tsp daily 3. Continue surveillance 4. Yearly hemoccult 5. Cleared for cardiac wells RECALL: Return 3 years Colonoscopy, pending biopsy results William Wills MD eSigned: William Wills MD 09/16/2017 2:37 PM cc: PATIENT NAME: Dayday Ward Enrique MR#: [id number]
[2017-09-16] MEDS ORDERED: CLOPIDOGREL 300 MG TAB PO ONE (15:15)
[2017-09-16] MEDS ORDERED: POTASSIUM CHLORIDE 10 MEQ CONTROLLED RELEASE TAB PO ONE (19:45)
[2017-09-16] MEDS ORDERED: IOHEXOL 350 MG/ML 10 ML VIAL (for RAD DIAG) IVCONTRAST ONE (20:03)
[2017-09-16] MEDS: ATORVASTATIN 80 MG TAB PO SCH (20:56)
[2017-09-17] VITALS (22 sets, daily range): BP systolic 109–137; BP diastolic 55–79; PULSE 65–105; RESP 16–19; TEMP 98.1–98.9; O2SAT 96–100
[2017-09-17] MEDS: CHLORHEXIDINE GLUCONATE 2 % 1 PACK (2 CLOTHS) TOP SCH (04:00)
[2017-09-17] MEDS: DOCUSATE SODIUM 50 MG/SENNA 8.6 MG TAB PO SCH ×2 (08:05→21:00)
[2017-09-17] MEDS: CHOLECALCIFEROL (VIT D3) 1000 UNIT TAB PO SCH (08:05)
[2017-09-17] MEDS: METOPROLOL SUCCINATE 50 MG EXTENDED RELEASE TAB PO SCH (08:05)
[2017-09-17] MEDS: AMIODARONE 200 MG TAB PO SCH (08:06)
[2017-09-17] MEDS: ASPIRIN EC 81 MG TABEC PO SCH (08:06)
[2017-09-17] MEDS: THIAMINE HCL 100 MG TAB PO SCH (08:06)
[2017-09-17] MEDS: FUROSEMIDE 40 MG TAB PO SCH (08:06)
[2017-09-17] MEDS: MULTIVITAMIN TAB PO SCH (08:06)
[2017-09-17] MEDS: FOLIC ACID 1 MG TAB PO SCH (08:06)
[2017-09-17] MEDS: CLOPIDOGREL 75 MG TAB PO SCH (08:06)
[2017-09-17] MEDS: PANTOPRAZOLE SOD 40 MG DELAYED RELEASE TAB PO SCH (08:06)
[2017-09-17] MEDS: SODIUM CHLORIDE 0.9% FLUSH 10 ML FLUSH IV FLUSH SCH ×2 (08:06→21:00)
[2017-09-17] MEDS ORDERED: ASPIRIN EC 81 MG TABEC PO SCH (09:00)
--- NOTE | 2017-09-17 10:57 | RADRPT ---
EXAM DATE: 09/16/2017 7:10 PM EDT AGE/SEX: 72 years / Male INDICATIONS: Evaluate heart valve. CLINICAL DATA: This is the patient's initial encounter. Patient reports that signs and symptoms have been present for 1 day and indicates a pain score of 0/10. MEDICAL/SURGICAL HISTORY: Cardiovascular disease. Chronic obstructive pulmonary disease. Hyperten karl. Skin cancer, anemia, kidney disease, dialysis. Appendectomy. RADIATION DOSE: 12.37 CTDI (mGy) COMPARISON: C, CTA TRANS AORTIC VALVE REPLACEMENT, 04/04/2017. . TECHNIQUE: Volumetric scanning was performed using a multi-row detector CT scanner during bolus infu karl of 90 ml Visipaque 320 (iodixanol) nonionic water-soluble contrast as a single exam dose. The data was post processed with a variety of visualization algorithms including full volume maximum inte nsity projection, multi-planar sliding thin slab reformation, curved planar reformation, and surface rendering techniques. Using automated exposure control and adjustment of the mA and/or kV according to patient size, radiation dose was kept as low as reasonably achievable to obtain optimal diagnostic quality images. DICOM format image data is available electronically for review and comparison. FINDINGS: CARDIAC: The coronary system is dominant. Normal vessels without calcification or stenosis. There are no microcalcifications. There is no pericardial effusion AORTIC ROOT/VALVE: There is a tricuspid aortic valve. There is extensive calcification of the valve leaflets. There is mild calcification of the aortic annulus. The aortic root measures 3.0 cm. There is diffuse densely calcified atherosclerotic plaquing involv ing the coronary arteries. The tubular portion of the ascending aorta measures 3.4 cm. There is no significant atherosclerotic calcification.. THORACIC AORTA: The aortic arch is at the upper limits of normal in size measuring approximately 3.2 cm. There is normal anatomic branching of the great vessels from the arch. There is minimal calcifie d atherosclerotic plaque. The origins of the great vessels are widely patent. The descending thoracic aorta is normal in caliber throughout its course measuring approximately 2.5 cm. There is minimal at herosclerotic plaquing. ABDOMINAL AORTA: The celiac and SMA origins are widely patent. There is an accessory renal arteries bilaterally. Both the main and the accessory renals appear adequate in caliber. The infrarenal aorta is heavily calcified but normal in caliber throughout. The EMILY is patent. ILIAC CIRCULATION: There is densely calcified atherosclerotic plaque in the common iliac arteries bi laterally. There is no hemodynamically significant lesion identified. The external iliac circulation demonstrates mild diffuse calcified atherosclerotic plaque but no hemodynamically significant stenosi s is seen. The hypogastric circulation is patent bilaterally. The common femoral arteries measure approximately 1 cm bilaterally. There is mild densely calcified a therosclerotic plaque along the posterior wall. The external iliac and common iliac circulation appea rs adequate in caliber for the delivery of the device bilaterally. THORAX: There are COPD changes throughout the pulmonary parenchyma. No suspicious mass lesions are i dentified. No significant hilar or mediastinal adenopathy is present. The heart is mildly enlarged. T here are degenerative changes within the thoracic spine. ABDOMEN: The solid organs of the abdomen demonstrate scattered simple cysts within the kidneys bilat erally. The solid organs are otherwise intact. There is no retroperitoneal adenopathy. No free air fr ee fluid is seen. There are degenerative changes throughout the lumbar spine. PELVIS: No free fluid is seen within the pelvis. No iliac or inguinal adenopathy is present. The loo ps of small and large bowel are unremarkable. There are degenerative changes throughout the lumbar sp ine. CONCLUSION: 1. Size measurements of the aortic root and tubular portion of the ascending aorta are listed above. The iliac circulation and the abdominal aorta are adequate in caliber for delivery of the TAVR devic e. 2. There is extensive calcification of the valvular leaflets. There is only minimal calcification of the aortic annulus. There is mild cardiomegaly. 3. COPD changes within the pulmonary parenchyma. Electronically signed by: Haris Hope MD 09/17/2017 10:56 AM EDT
[2017-09-17] MEDS: EPOETIN ALFA 10,000 UNITS/ML VIAL IV PUSH PRN (11:11)
[2017-09-17] MEDS: HEPARIN SODIUM - IV 10,000 UNITS/10 ML VIAL PRN (11:14)
--- NOTE | 2017-09-17 11:36 | HHI.GIFU ---
Subjective Remarks Pt seen in dialysis No GI complaints Denies nausea, vomiting, abdominal pain (Merary Rossi) Objective Vitals I&O Vital Signs Date Time Temp Pulse Resp B/P (MAP) Pulse Ox O2 Delivery O2 Flow Rate FiO2 09/17/17 08:00 98.1 105 18 113/79 (90) 98 09/17/17 08:00 78 09/17/17 07:45 Room Air 09/17/17 06:00 65 09/17/17 05:00 74 09/17/17 04:00 78 09/17/17 03:30 98.9 75 16 121/64 (83) 99 09/17/17 03:00 76 09/17/17 02:00 73 09/17/17 01:00 82 09/17/17 00:00 74 09/16/17 23:00 80 09/16/17 23:00 98.8 77 16 107/55 (72) 99 09/16/17 23:00 99 Room Air 09/16/17 22:00 92 09/16/17 21:00 78 09/16/17 20:59 97 21 09/16/17 20:30 98.5 78 16 97/57 (70) 100 09/16/17 20:30 100 Room Air 09/16/17 20:00 80 09/16/17 19:00 78 09/16/17 18:00 86 09/16/17 17:00 90 09/16/17 16:00 92 09/16/17 15:00 72 09/16/17 15:00 97.4 72 16 126/85 (99) 99 09/16/17 14:56 97.2 69 18 118/62 (80) 98 09/16/17 14:00 78 09/16/17 12:00 60 I/O 09/16/17 09/16/17 09/16/17 09/17/17 09/17/17 09/17/17 07:00 15:00 23:00 07:00 15:00 23:00 Intake Total 240 ml 100 ml 30 ml 240 ml Output Total 150 ml 800 ml Balance 240 ml 100 ml 30 ml 90 ml -800 ml Intake Oral 240 ml 30 ml 240 ml Other 100 ml Output Urine Total 150 ml Hemodialysis 800 ml # Voids 3 2 # Bowel Movements 3 4 0 Imaging Last Impressions Chest CTA 09/16/17 0000 Signed Impressions: CONCLUSION: 1. Size measurements of the aortic root and tubular portion of the ascending a aide are listed above. The iliac circulation and the abdominal aorta are adequa te in caliber for delivery of the TAVR device. 2. There is extensive calcification of the valvular leaflets. There is only mi nimal calcification of the aortic annulus. There is mild cardiomegaly. 3. COPD changes within the pulmonary parenchyma. GI Bleed Scan Nuclear Medicine 09/13/17 0000 Signed Impressions: CONCLUSION: 1. No focal abnormality to suggest active hemorrhage. Catheter Placement X-Ray 09/12/17 0000 Signed Impressions: CONCLUSION: 1. Uncomplicated PermaCath placement as above. Chest X-Ray 09/04/17 0600 Signed Impressions: CONCLUSION: Cardiomegaly with minimal basilar atelectasis. No significant change from September 03. Physical Exam HEENT: Normocephalic; atraumatic CHEST: Even/unlabored CARDIAC: RRR ABDOMEN: Round, soft, nontender, bowel sounds active SKIN: Pale, no rash Neurologic: Alert and oriented x 3 (Merary Rossi CREATIVE SERVICES COORDINATOR) Assessment and Plan Plan Assessment: - Anemia- long history of anemia- has previously required multiple blood transfusions, has been told the anemia is secondary to CKD, previously on Procrit with no improvement. Last EGD and colonoscopy in 2013 --> Very poor prep, diverticulosis, hemorrhoids, and gastritis. H/H currently 5.5/17.6 receiving 3 U PRBCs per CCM Per ER notes, rectal exam revealed black stool that was Hemoccult positive. Pt denies NSAIDs. Drinks 1-2 liquor drinks a day. Smokes 1 PPD. - Positive troponin secondary to severe anemia- pt was placed on Heparin gtt- discussed with Dr. Anderson, chaser apprentice on the phone, states OK to DC Heparin - CKD- per attending Discussed with Dr Anderson, cardiologists, states OK to proceed with EGD and discontinue Heparin gtt. Discussed with Dr. Bear. Discussed with THIERRY Wallace. Heparin gtt to be discontinued now, continue Protonix gtt, EGD after 4 pm today. RECONSULT FOR CONTINUED ANEMIA- REQUESTED BY CARDIOLOGY Pt continues to be anemic, with a drop in his hgb to 6.9 on 09/09. Cardiology is planning on PCI with AVR in a few weeks, but would like our service to evaluate for possible colonoscopy to rule out source of GIB. Our service already did EGD on 09/04 which revealed normal esophagus, gastritis in the gastric antrum, normal duodenal mucosa in the duodenal bulb, 2nd part of the duodenum, and 3rd part of the duodenum. Pathology (antrum) moderate chronic, focally active gastritis with intestinal metaplasia. Pt denies any obvious blood in stool (although he states he does not really look) constipation, diarrhea, abdominal pain, nausea, vomiting. Colonoscopy --> Significant amount of stool was present in the ascending colon, at the cecum, and hepatic flexure and entire right colon. Moderate sigmoid diverticulosis was noted. No large lesion seen, limited exam secondary to poor bowel prep. NM bleeding scan (09/13) No focal abnormality to suggest active hemorrhage (09/15) Pt seen in dialysis. No obvious GIB. H/H has been low but stable since transfusion on the . Pt received one unit of PRBCs yesterday, hgb from 8 to 9.5. Cardiology hoping to put pt on blood thinners after PCI with plans for TAVR in a few weeks. GIB needs to be rule out so that blood thinners can be started. Will plan for repeat colonoscopy tomorrow (09/17) S/P repeat colonoscopy yesterday with better prep. Colonoscopy --> Mild diverticulosis was noted in the sigmoid colon. A sessile polyp ranging between 3-5 mm in size was found in the sigmoid colon, polypectomy. Internal and external hemorrhoids. Pt started on Plavix this morning. No repeat H/H from today Plan OK for anticoagulation Recommend capsule endoscopy as outpatient Our service will sign off, please reconsult as needed Have pt follow up with GI after DC Pt has been seen and examined by myself and Dr. Hernandez and this note is written on her behalf (Merary Rossi) Physician Comments agree (Shavonne Hernandez MD) Merary Rossi Sep 17, 2017 11:36 Shavonne Hernandez MD Sep 17, 2017 17:04
--- NOTE | 2017-09-17 12:04 | HHI.PR ---
Subjective Remarks Patient seen during dialysis. He has no new complaints. Colonoscopy did not reveal any active bleeding. He has been started on a trial of Plavix per cardiology. Objective Vitals Vital Signs Date Time Temp Pulse Resp B/P (MAP) Pulse Ox O2 Delivery O2 Flow Rate FiO2 09/17/17 08:00 98.1 105 18 113/79 (90) 98 09/17/17 08:00 78 09/17/17 07:45 Room Air 09/17/17 06:00 65 09/17/17 05:00 74 09/17/17 04:00 78 09/17/17 03:30 98.9 75 16 121/64 (83) 99 09/17/17 03:00 76 09/17/17 02:00 73 09/17/17 01:00 82 09/17/17 00:00 74 09/16/17 23:00 80 09/16/17 23:00 98.8 77 16 107/55 (72) 99 09/16/17 23:00 99 Room Air 09/16/17 22:00 92 09/16/17 21:00 78 09/16/17 20:59 97 21 09/16/17 20:30 98.5 78 16 97/57 (70) 100 09/16/17 20:30 100 Room Air 09/16/17 20:00 80 09/16/17 19:00 78 09/16/17 18:00 86 09/16/17 17:00 90 09/16/17 16:00 92 09/16/17 15:00 72 09/16/17 15:00 97.4 72 16 126/85 (99) 99 09/16/17 14:56 97.2 69 18 118/62 (80) 98 09/16/17 14:00 78 I/O 09/16/17 09/16/17 09/16/17 09/17/17 09/17/17 09/17/17 07:00 15:00 23:00 07:00 15:00 23:00 Intake Total 240 ml 100 ml 30 ml 240 ml Output Total 150 ml 800 ml Balance 240 ml 100 ml 30 ml 90 ml -800 ml Intake Oral 240 ml 30 ml 240 ml Other 100 ml Output Urine Total 150 ml Hemodialysis 800 ml # Voids 3 2 # Bowel Movements 3 4 0 Result Diagram: 09/16/17 0533 09/16/17532 Objective Remarks GENERAL: This is a well-nourished, well-developed patient, in no apparent distress. CARDIOVASCULAR: Normal rate and regular rhythm. 2 out of 6 OMID murmur best heard over the left upper sternal border. RESPIRATORY: Good respiratory efforts. Diminished breath sounds at the bases. Otherwise breath sounds equal and clear to auscultation bilaterally. GASTROINTESTINAL: Abdomen soft, non-tender, non-distended. Normal active bowel sounds MUSCULOSKELETAL: Extremities without cyanosis, or edema. NEURO: Alert & Oriented x4 to person, place, time, situation. Moves all ext x4 PSYCH: Appropriate mood and affect. A/P Assessment and Plan 72-year-old male admitted secondary to chest pain status post NSTEMI. chronic kidney disease present at baseline. NSTEMI CAD Paroxysmal a-fif Aortic Stenosis HTN Plan for high risk PCI. Trial of antiplatelet per cardiology to ensure hemoglobin is not dropping following.. TVAR plan for the future per Cardiology. CT surgery consulted. Continue Norvasc Continue metoprolol Continue amiodarone Cardiology following Follow on telemetry Severe Anemia Recurrent GI bleed bleeding scan negative Colonoscopy revealed diverticulosis, polyp, and hemorrhoids but no active bleeding. S/P transfusion, Monitor H&H. Stable today. Continue iron supplement Continue Epogen End-stage renal disease Nephrology following Continue dialysis Replace K Discharge Planning Trial of antiplatelet to ensure hemoglobin is not dropping per cardiology. Follow H&H. Eventual plan for PCI and TAVR in the future. Darby Granados MD Sep 17, 2017 12:03
--- NOTE | 2017-09-17 12:59 | HHI.NPPN ---
Subjective History of Present Illness 72-year-old white male with history of hypertension, chronic kidney disease approaching ESRD who developed chest pain and shortness of breath Review of Systems General Constitutional: Fatigue Objective Data Data 09/17/17 09/18/17 19:00 07:00 Output Total 800 ml Balance -800 ml Hemodialysis 800 ml Vital Signs Date Time Temp Pulse Resp B/P (MAP) Pulse Ox O2 Delivery O2 Flow Rate FiO2 09/17/17 12:00 70 09/17/17 11:00 70 09/17/17 10:00 76 09/17/17 09:00 70 09/17/17 08:00 98.1 105 18 113/79 (90) 98 09/17/17 08:00 78 09/17/17 07:45 Room Air 09/17/17 07:00 74 09/17/17 06:00 65 09/17/17 05:00 74 09/17/17 04:00 78 09/17/17 03:30 98.9 75 16 121/64 (83) 99 09/17/17 03:00 76 09/17/17 02:00 73 09/17/17 01:00 82 09/17/17 00:00 74 09/16/17 23:00 80 09/16/17 23:00 98.8 77 16 107/55 (72) 99 09/16/17 23:00 99 Room Air 09/16/17 22:00 92 09/16/17 21:00 78 09/16/17 20:59 97 21 09/16/17 20:30 98.5 78 16 97/57 (70) 100 09/16/17 20:30 100 Room Air 09/16/17 20:00 80 09/16/17 19:00 78 09/16/17 18:00 86 09/16/17 17:00 90 09/16/17 16:00 92 09/16/17 15:00 72 09/16/17 15:00 97.4 72 16 126/85 (99) 99 09/16/17 14:56 97.2 69 18 118/62 (80) 98 09/16/17 14:00 78 -: 09/16/17 0533 09/16/17 0533 Physical Exam General Appearance: Well Developed, Well Nourished Pulmonary Resp Exam: Crackles, Decreased Bases Cardiology CV Exam: Regular, Normal Sinus Rhythm, Murmur Gastrointestinal/Abdomen GI Exam: Soft, Non-Tender, Bowel Sounds Present Extremeties Extremities Exam: Trace Edema Neurologic Neuro Exam: Alert, Awake, Oriented Assessment/Plan Problem List: (1) Acute renal failure ICD Codes: N17.9 - Acute kidney failure, unspecified Plan: Continue HD MWF. heart catheterization done severe two-vessel coronary artery disease LAD 80% and right coronary artery total occlusion severely AV stenosis TAVR and coronary stent planned after GI issues resolve. Continue supportive care Permcath in place repeat colonoscopy polypectomy done no obvious source of bleeding Possible stent after GI clearance possible next week Need outpatient dialysis setup (2) CKD (chronic kidney disease) stage 4, GFR 15-29 ml/min ICD Codes: N18.4 - Chronic kidney disease, stage 4 (severe) Plan: Patient may have progress to stage V (3) GI bleed ICD Codes: K92.2 - Gastrointestinal hemorrhage, unspecified Status: Acute Plan: GI following. (4) Anemia ICD Codes: D64.9 - Anemia Status: Acute Plan: Status post blood transfusion (5) ACS (acute coronary syndrome) ICD Codes: I24.9 - Acute ischemic heart disease, unspecified Status: Acute Plan: Cardiology following. s/p Cath. Has CAD and . (6) Hypertension ICD Codes: I10 - Essential (primary) hypertension Plan: Continue to monitor Gaurav Shah MD Sep 17, 2017 12:59
--- NOTE | 2017-09-17 17:20 | PD.CARD.PN ---
Subjective Subjective Remarks doing well no complaints Objective Medications Current Medications Medications (Trade) Dose Ordered Sig/Marylou Route Start Time Stop Time Status Last Admin Sodium Chloride 1,000 ml @ 30 mls/hr Q24H IV 09/03/17 23:21 09/08/17 22:41 (NS Flush) 2 ml UNSCH PRN IV FLUSH 09/03/17 23:30 (NS Flush) 2 ml BID IV FLUSH 09/04/17 09:00 09/17/17 08:06 (Tylenol) 650 mg Q6H PRN PO 09/03/17 23:30 (Morphine Inj) 2 mg Q2H PRN IV PUSH 09/03/17 23:30 (Zofran Odt) 4 mg Q6H PRN PO 09/03/17 23:30 (Duoneb Neb) 1 ampule Q2HR NEB PRN INH 09/03/17 23:30 09/04/17 12:14 ([facility] Nursing Information) 1 [id number] XX 09/03/17 23:30 09/03/17 23:30 (Chlorhexidine 2% Cloth) Taper DAILY@04 TOP 09/04/17 04:00 08/31/18 03:59 09/09/17 03:57 (Chlorhexidine 2% Cloth) 3 pack UNSCH PRN TOP 09/03/17 23:30 (Sylvie-Colace) 1 tab BID PO 09/04/17 09:00 09/17/17 08:05 (Milk Of Magnesia Liq) 30 ml Q12H PRN PO 09/03/17 23:30 (Senokot) 17.2 mg Q12H PRN PO 09/03/17 23:30 (Dulcolax Supp) 10 mg DAILY PRN RECTAL 09/03/17 23:30 (Lactulose Liq) 30 ml DAILY PRN PO 09/03/17 23:30 (Norvasc) 10 mg DAILY PO 09/04/17 09:00 09/17/17 08:06 (Lipitor) 80 mg HS PO 09/04/17 21:00 09/16/17 20:56 (Vitamin D3) 1,000 units DAILY PO 09/04/17 09:00 09/17/17 08:05 (Toprol Xl) 50 mg DAILY PO 09/04/17 09:00 09/17/17 08:05 (Ecotrin Ec) 81 mg DAILY PO 09/04/17 09:00 09/17/17 08:06 Sodium Chloride 1,000 ml @ 0 mls/hr Q0M PRN OTHER 09/05/17 10:20 (Heparin Inj) 8,000 units UNSCH PRN IV FLUSH 09/05/17 10:30 Sodium Chloride 1,000 ml @ 200 mls/hr Q5H PRN IV 09/05/17 10:20 Sodium Chloride 1,000 ml @ 0 mls/hr Q0M PRN OTHER 09/05/17 10:20 (Mannitol Inj) 12.5 gm UNSCH PRN IV 09/05/17 10:30 Albumin Human 100 ml @ 60 mls/hr UNSCH PRN IV 09/05/17 10:30 09/10/17 09:17 (NS Flush) 5 ml UNSCH PRN IV FLUSH 09/05/17 10:30 (Heparin Inj) UNSCH PRN .XX 09/05/17 10:30 09/17/17 11:14 (Gentamicin Inj) 20 mg UNSCH PRN OTHER 09/05/17 10:30 09/12/17 11:51 (Zofran Inj) 4 mg UNSCH PRN IV PUSH 09/05/17 10:30 (Tylenol) 650 mg UNSCH PRN PO 09/05/17 10:30 (Benadryl) 25 mg UNSCH PRN PO 09/05/17 10:30 (Nitrostat Sl) 0.4 mg UNSCH PRN SL 09/05/17 10:30 (Catapres) 0.1 mg UNSCH PRN PO 09/05/17 10:30 (Gelfoam 12 Mm/7 Mm Top) 1 foam UNSCH PRN TOP 09/05/17 10:30 (Protonix) 40 mg DAILY PO 09/06/17 09:00 09/17/17 08:06 (Vitamin B1) 100 mg DAILY PO 09/05/17 16:30 09/17/17 08:06 (Folate) 1 mg DAILY PO 09/06/17 09:00 09/17/17 08:06 (Theragran) 1 tab DAILY PO 09/06/17 09:00 09/17/17 08:06 (Epogen Inj) 10,000 units UNSCH PRN IV PUSH 09/06/17 12:15 09/17/17 11:11 (Lasix) 40 mg DAILY PO 09/09/17 09:00 09/17/17 08:06 (Cordarone) 200 mg DAILY PO 09/10/17 09:00 09/17/17 08:06 Lactated Ringer's 1,000 ml @ 30 mls/hr Q24H PRN IV 09/16/17 02:45 09/19/17 02:44 Sodium Chloride 500 ml @ 30 mls/hr [id number] PRN IV 09/16/17 02:45 09/19/17 02:44 (Betadine 5% Antisepsis Kit) 1 applic NUCLEAR PHYSICS PROFESSOR PRN EACH NARE 09/16/17 02:45 09/19/17 02:44 (Chlorhexidine 2% Cloth) 3 pack NUCLEAR PHYSICS PROFESSOR PRN TOPICAL 09/16/17 02:45 09/19/17 02:44 (Plavix) 75 mg DAILY PO 09/17/17 09:00 09/17/17 08:06 Vital Signs / I&O Vital Signs Date Time Temp Pulse Resp B/P (MAP) Pulse Ox O2 Delivery O2 Flow Rate FiO2 09/17/17 16:00 88 09/17/17 16:00 98.1 77 16 117/79 (92) 99 09/17/17 15:00 80 09/17/17 14:00 90 09/17/17 13:00 88 09/17/17 12:29 96 09/17/17 12:00 98.2 88 18 109/55 (73) 100 09/17/17 12:00 70 09/17/17 11:00 70 09/17/17 10:00 76 09/17/17 09:00 70 09/17/17 08:00 98.1 105 18 113/79 (90) 98 09/17/17 08:00 78 09/17/17 07:45 Room Air 09/17/17 07:00 74 09/17/17 06:00 65 09/17/17 05:00 74 09/17/17 04:00 78 09/17/17 03:30 98.9 75 16 121/64 (83) 99 09/17/17 03:00 76 09/17/17 02:00 73 09/17/17 01:00 82 09/17/17 00:00 74 09/16/17 23:00 80 09/16/17 23:00 98.8 77 16 107/55 (72) 99 09/16/17 23:00 99 Room Air 09/16/17 22:00 92 09/16/17 21:00 78 09/16/17 20:59 97 21 09/16/17 20:30 98.5 78 16 97/57 (70) 100 09/16/17 20:30 100 Room Air 09/16/17 20:00 80 09/16/17 19:00 78 09/16/17 18:00 86 I/O 09/16/17 09/16/17 09/16/17 09/17/17 09/17/17 09/17/17 07:00 15:00 23:00 07:00 15:00 23:00 Intake Total 240 ml 100 ml 30 ml 240 ml 760 ml Output Total 150 ml 800 ml 650 ml Balance 240 ml 100 ml 30 ml 90 ml -800 ml 110 ml Intake Oral 240 ml 30 ml 240 ml 760 ml Other 100 ml Output Urine Total 150 ml 650 ml Hemodialysis 800 ml # Voids 3 2 # Bowel Movements 3 4 0 0 Physical Exam GENERAL: SKIN: Warm and dry. HEAD: Normocephalic. EYES: No scleral icterus. No injection or drainage. NECK: Supple, trachea midline. No JVD or lymphadenopathy. CARDIOVASCULAR: Regular rate and rhythm without murmurs, gallops, or rubs. RESPIRATORY: Breath sounds equal bilaterally. No accessory muscle use. GASTROINTESTINAL: Abdomen soft, non-tender, nondistended. MUSCULOSKELETAL: No cyanosis, or edema. BACK: Nontender without obvious deformity. No CVA tenderness. Imaging Last Impressions Chest CTA 09/16/17 Signed Impressions: CONCLUSION: 1. Size measurements of the aortic root and tubular portion of the ascending a aide are listed above. The iliac circulation and the abdominal aorta are adequa te in caliber for delivery of the TAVR device. 2. There is extensive calcification of the valvular leaflets. There is only mi nimal calcification of the aortic annulus. There is mild cardiomegaly. 3. COPD changes within the pulmonary parenchyma. GI Bleed Scan Nuclear Medicine 09/13/17 Signed Impressions: CONCLUSION: 1. No focal abnormality to suggest active hemorrhage. Catheter Placement X-Ray 6/15/18 0000 Signed Impressions: CONCLUSION: 1. Uncomplicated PermaCath placement as above. Chest X-Ray 09/04/17 0600 Signed Impressions: CONCLUSION: Cardiomegaly with minimal basilar atelectasis. No significant change from September 03. Assessment and Plan Problem List: (1) Non-ST elevation DC (NSTEMI) ICD Codes: I21.4 - Non-ST elevation DC (NSTEMI) Status: Acute (2) Paroxysmal atrial fibrillation ICD Codes: I48.0 - Paroxysmal atrial fibrillation Status: Acute (3) Aortic stenosis ICD Codes: I35.0 - Nonrheumatic aortic (valve) stenosis Status: Chronic Assessment and Plan severe aortic stenosis - TAVR workup in progress. NSTEMI - severe 2 Vz CAD (collateralized/occluded RCA and severe mid LAD). Tenatively planning high risk PCI mid LAD. plavix load. PCI friday if no bleeding. ESRD - on HD Problem Qualifiers (1) Aortic stenosis: Qualified Codes: I35.0 - Nonrheumatic aortic (valve) stenosis Roldan Pryor MD Sep 17, 2017 17:20
[2017-09-17] MEDS: ATORVASTATIN 80 MG TAB PO SCH (21:00)
[2017-09-18] VITALS (21 sets, daily range): BP systolic 112–154; BP diastolic 58–97; PULSE 66–82; RESP 16–20; TEMP 98.1–99.2; O2SAT 98–100
[2017-09-18] MEDS: CHLORHEXIDINE GLUCONATE 2 % 1 PACK (2 CLOTHS) TOP SCH (04:00)
[2017-09-18 06:47] LABS: HEMATOCRIT 25.7 % (39.0-51.0); HEMOGLOBIN 8.4 GM/DL (13.0-17.0); MEAN CELL VOLUME 90.3 FL (80.0-100.0); MEAN CORPUSCULAR HEMOGLOBIN 29.3 PG (27.0-34.0); MEAN CORPUSCULAR HGB CONC 32.5 % (32.0-36.0); MEAN PLATELET VOLUME 8.5 FL (7.0-11.0); PLATELET COUNT 263 TH/MM3 (150-450); RED BLOOD COUNT 2.85 MIL/MM3 (4.50-5.90); RED CELL DISTRIBUTION WIDTH 24.2 % (11.6-17.2); WHITE BLOOD COUNT 8.2 TH/MM3 (4.0-11.0)
[2017-09-18 07:12] LABS: BICARBONATE 29.3 MEQ/L (21.0-32.0); CALCIUM 8.6 MG/DL (8.5-10.1); CREATININE 4.5 MG/DL (0.60-1.30)
--- NOTE | 2017-09-18 08:38 | PD.CARD.PN ---
Subjective Subjective Remarks doing well eating breakfast no complaints Objective Medications Current Medications Medications (Trade) Dose Ordered Sig/Marylou Route Start Time Stop Time Status Last Admin Sodium Chloride 1,000 ml @ 30 mls/hr Q24H IV 09/03/17 23:21 09/08/17 22:41 (NS Flush) 2 ml UNSCH PRN IV FLUSH 09/03/17 23:30 (NS Flush) 2 ml BID IV FLUSH 09/04/17 09:00 09/17/17 21:00 (Tylenol) 650 mg Q6H PRN PO 09/03/17 23:30 (Morphine Inj) 2 mg Q2H PRN IV PUSH 09/03/17 23:30 (Zofran Odt) 4 mg Q6H PRN PO 09/03/17 23:30 (Duoneb Neb) 1 ampule Q2HR NEB PRN INH 09/03/17 23:30 09/04/17 12:14 ([facility] [place] [facility] [place] 1 Q361D XX 09/03/17 23:30 09/03/17 23:30 (Chlorhexidine 2% Cloth) Taper DAILY@04 TOP 09/04/17 04:00 08/31/18 03:59 09/09/17 03:57 (Chlorhexidine 2% Cloth) 3 pack UNSCH PRN TOP 09/03/17 23:30 (Sylvie-Colace) 1 tab BID PO 09/04/17 09:00 09/17/17 08:05 (Milk Of Magnesia Liq) 30 ml Q12H PRN PO 09/03/17 23:30 (Senokot) 17.2 mg Q12H PRN PO 09/03/17 23:30 (Dulcolax Supp) 10 mg DAILY PRN RECTAL 09/03/17 23:30 (Lactulose Liq) 30 ml DAILY PRN PO 09/03/17 23:30 (Norvasc) 10 mg DAILY PO 09/04/17 09:00 09/17/17 08:06 (Lipitor) 80 mg HS PO 09/04/17 21:00 09/17/17 21:00 (Vitamin D3) 1,000 units DAILY PO 09/04/17 09:00 09/17/17 08:05 (Toprol Xl) 50 mg DAILY PO 09/04/17 09:00 09/17/17 08:05 (Ecotrin Ec) 81 mg DAILY PO 09/04/17 09:00 09/17/17 08:06 Sodium Chloride 1,000 ml @ 0 mls/hr Q0M PRN OTHER 09/05/17 10:20 (Heparin Inj) 8,000 units UNSCH PRN IV FLUSH 09/05/17 10:30 Sodium Chloride 1,000 ml @ 200 mls/hr Q5H PRN IV 09/05/17 10:20 Sodium Chloride 1,000 ml @ 0 mls/hr Q0M PRN OTHER 09/05/17 10:20 (Mannitol Inj) 12.5 gm UNSCH PRN IV 09/05/17 10:30 Albumin Human 100 ml @ 60 mls/hr UNSCH PRN IV 09/05/17 10:30 09/10/17 09:17 (NS Flush) 5 ml UNSCH PRN IV FLUSH 09/05/17 10:30 (Heparin Inj) UNSCH PRN .XX 09/05/17 10:30 09/17/17 11:14 (Gentamicin Inj) 20 mg UNSCH PRN OTHER 09/05/17 10:30 09/12/17 11:51 (Zofran Inj) 4 mg UNSCH PRN IV PUSH 09/05/17 10:30 (Tylenol) 650 mg UNSCH PRN PO 09/05/17 10:30 (Benadryl) 25 mg UNSCH PRN PO 09/05/17 10:30 (Nitrostat Sl) 0.4 mg UNSCH PRN SL 09/05/17 10:30 (Catapres) 0.1 mg UNSCH PRN PO 09/05/17 10:30 (Gelfoam 12 Mm/7 Mm Top) 1 foam UNSCH PRN TOP 09/05/17 10:30 (Protonix) 40 mg DAILY PO 09/06/17 09:00 09/17/17 08:06 (Vitamin B1) 100 mg DAILY PO 09/05/17 16:30 09/17/17 08:06 (Folate) 1 mg DAILY PO 09/06/17 09:00 09/17/17 08:06 (Theragran) 1 tab DAILY PO 09/06/17 09:00 09/17/17 08:06 (Epogen Inj) 10,000 units UNSCH PRN IV PUSH 09/06/17 12:15 09/17/17 11:11 (Lasix) 40 mg DAILY PO 09/09/17 09:00 09/17/17 08:06 (Cordarone) 200 mg DAILY PO 09/10/17 09:00 09/17/17 08:06 Lactated Ringer's 1,000 ml @ 30 mls/hr Q24H PRN IV 09/16/17 02:45 09/19/17 02:44 Sodium Chloride 500 ml @ 30 mls/hr [id number] PRN IV 09/16/17 02:45 09/19/17 02:44 (Betadine 5% Antisepsis Kit) 1 applic PLEATING SUPERVISOR PRN EACH NARE 09/16/17 02:45 09/19/17 02:44 (Chlorhexidine 2% Cloth) 3 pack PLEATING SUPERVISOR PRN TOPICAL 09/16/17 02:45 09/19/17 02:44 (Plavix) 75 mg DAILY PO 09/17/17 09:00 09/17/17 08:06 Vital Signs / I&O Vital Signs Date Time Temp Pulse Resp B/P (MAP) Pulse Ox O2 Delivery O2 Flow Rate FiO2 09/18/17 07:00 66 09/18/17 04:00 99.2 79 18 114/60 (78) 99 09/18/17 04:00 73 09/18/17 00:00 98.6 75 20 124/65 (84) 100 09/18/17 00:00 70 09/17/17 20:00 76 09/17/17 20:00 100 Room Air 09/17/17 20:00 98.3 76 19 137/75 (95) 100 09/17/17 18:00 78 09/17/17 17:00 90 09/17/17 16:00 88 09/17/17 16:00 98.1 77 16 117/79 (92) 99 09/17/17 15:00 80 09/17/17 14:00 90 09/17/17 13:00 88 09/17/17 12:29 96 09/17/17 12:00 98.2 88 18 109/55 (73) 100 09/17/17 12:00 70 09/17/17 11:00 70 09/17/17 10:00 76 09/17/17 09:00 70 I/O 09/17/17 09/17/17 09/17/17 09/18/17 09/18/17 09/18/17 07:00 15:00 23:00 07:00 15:00 23:00 Intake Total 240 ml 760 ml 480 ml Output Total 150 ml 800 ml 650 ml 250 ml Balance 90 ml -800 ml 110 ml 230 ml Intake Oral 240 ml 760 ml 480 ml Output Urine Total 150 ml 650 ml 250 ml Hemodialysis 800 ml # Voids 2 # Bowel Movements 0 0 Physical Exam GENERAL: SKIN: Warm and dry. HEAD: Normocephalic. EYES: No scleral icterus. No injection or drainage. NECK: Supple, trachea midline. No JVD or lymphadenopathy. CARDIOVASCULAR: Regular rate and rhythm without murmurs, gallops, or rubs. RESPIRATORY: Breath sounds equal bilaterally. No accessory muscle use. GASTROINTESTINAL: Abdomen soft, non-tender, nondistended. MUSCULOSKELETAL: No cyanosis, or edema. BACK: Nontender without obvious deformity. No CVA tenderness. Laboratory Laboratory Tests Test 09/18/17 05:11 White Blood Count 8.2 TH/MM3 Red Blood Count 2.85 MIL/MM3 Hemoglobin 8.4 GM/DL Hematocrit 25.7 % Mean Corpuscular Volume 90.3 FL Mean Corpuscular Hemoglobin 29.3 PG Mean Corpuscular Hemoglobin Concent 32.5 % Red Cell Distribution Width 24.2 % Platelet Count 263 TH/MM3 Mean Platelet Volume 8.5 FL Blood Urea Nitrogen 33 MG/DL Creatinine 4.50 MG/DL Random Glucose 82 MG/DL Calcium Level 8.6 MG/DL Sodium Level 142 MEQ/L Potassium Level 3.4 MEQ/L Chloride Level 103 MEQ/L Carbon Dioxide Level 29.3 MEQ/L Anion Gap 10 MEQ/L Estimat Glomerular Filtration Rate 13 ML/MIN Imaging Last Impressions Chest CTA 09/16/17 0000 Signed Impressions: CONCLUSION: 1. Size measurements of the aortic root and tubular portion of the ascending a aide are listed above. The iliac circulation and the abdominal aorta are adequa te in caliber for delivery of the TAVR device. 2. There is extensive calcification of the valvular leaflets. There is only mi nimal calcification of the aortic annulus. There is mild cardiomegaly. 3. COPD changes within the pulmonary parenchyma. GI Bleed Scan Nuclear Medicine 09/13/17 0000 Signed Impressions: CONCLUSION: 1. No focal abnormality to suggest active hemorrhage. Catheter Placement X-Ray 09/12/17 0000 Signed Impressions: CONCLUSION: 1. Uncomplicated PermaCath placement as above. Chest X-Ray 09/04/17 0600 Signed Impressions: CONCLUSION: Cardiomegaly with minimal basilar atelectasis. No significant change from September 03. Assessment and Plan Problem List: (1) Non-ST elevation [place] (NSTEMI) ICD Codes: I21.4 - Non-ST elevation VT (NSTEMI) Status: Acute (2) Paroxysmal atrial fibrillation ICD Codes: I48.0 - Paroxysmal atrial fibrillation Status: Acute (3) Aortic stenosis ICD Codes: I35.0 - Nonrheumatic aortic (valve) stenosis Status: Chronic Assessment and Plan severe aortic stenosis - TAVR workup NSTEMI - severe 2 Vz CAD. High risk PCI mid LAD/diagonal branch bifurcation with occluded RCA. plavix load. PCI scheduled for Tues am since dialysis scheduled wed. Will need HD coordinated upon anticipated discharge Fri. ESRD - on HD anemia - GI cleared him. May still need capsule endoscopy. monitor Hb and evidence for bleed on antiplatelet therapy Problem Qualifiers (1) Aortic stenosis: Qualified Codes: I35.0 - Nonrheumatic aortic (valve) stenosis Roldan Pryor MD Sep 18, 2017 08:38
[2017-09-18] MEDS: SODIUM CHLORIDE 0.9% FLUSH 10 ML FLUSH IV FLUSH SCH ×2 (09:00→21:00)
[2017-09-18] MEDS: ASPIRIN EC 81 MG TABEC PO SCH (09:17)
[2017-09-18] MEDS: FOLIC ACID 1 MG TAB PO SCH (09:17)
[2017-09-18] MEDS: AMIODARONE 200 MG TAB PO SCH (09:17)
[2017-09-18] MEDS: PANTOPRAZOLE SOD 40 MG DELAYED RELEASE TAB PO SCH (09:17)
[2017-09-18] MEDS: DOCUSATE SODIUM 50 MG/SENNA 8.6 MG TAB PO SCH ×2 (09:18→21:27)
[2017-09-18] MEDS: MULTIVITAMIN TAB PO SCH (09:18)
[2017-09-18] MEDS: CHOLECALCIFEROL (VIT D3) 1000 UNIT TAB PO SCH (09:18)
[2017-09-18] MEDS: FUROSEMIDE 40 MG TAB PO SCH (09:18)
[2017-09-18] MEDS: THIAMINE HCL 100 MG TAB PO SCH (09:18)
[2017-09-18] MEDS: METOPROLOL SUCCINATE 50 MG EXTENDED RELEASE TAB PO SCH (09:18)
[2017-09-18] MEDS: CLOPIDOGREL 75 MG TAB PO SCH (09:18)
--- NOTE | 2017-09-18 12:59 | PD.CONS ---
History of Present Illness Service CT Surgery Consult Requested By Dr. Pryor Reason for Consult Severe symptomatic aortic stenosis CAD Primary Care Physician Non-Staff Diagnoses: (1) Non-ST elevation [place] (NSTEMI) (2) Coronary artery disease (3) End stage renal disease (4) Paroxysmal atrial fibrillation (5) Aortic stenosis (6) Benign hypertension (7) Hyperlipidemia (8) ACS (acute coronary syndrome) (9) GI bleed History of Present Illness 72-year-old patient of Dr. Katlyn Tidwell who is known to our service from March,. At that time, he was being worked up at that time for carpal tunnel surgery and needed cardiac clearance. He was found to have severe aortic stenosis with a valve area of 0.7 and recommendation was to undergo cardiac cath to be evaluated for possible TAVR candidate. However, due to his elevated creatinine, this was not done. He also has a history of severe anemia and was transfused, had undergone colonoscopy which showed again gastritis. On this admission, again was found to be severely anemic and has received blood transfusions of 5 units since admission. He underwent EGD with biopsy on 09/04 which showed gastritis in the gastric antrum. Multiple biopsies were done. Creatinine on admission was 5.21. He has since had a vas cath placed on the right internal jugular and he has had dialysis treatment underwent a cardiac catheterization by Dr. Anderson. The LAD showed a proximal LAD of 80%, the RCA was totally occluded in the mid portion and there were good left to right collaterals. Echocardiogram showed an EF of 55%, aortic valve area of 0.74, moderate mitral regurgitation. He was being for coronary artery bypass graft x2 and aortic valve replacement. Review of Systems Constitutional: COMPLAINS OF: Diaphoretic episodes, Fatigue, DENIES: Fever, Weight gain, Weight loss, Chills, Dizziness, Change in appetite, Night Sweats Endocrine: DENIES: Heat/cold intolerance, Polydipsia, Polyuria, Polyphagia Eyes: DENIES: Blurred vision, Diplopia, Eye inflammation, Eye pain, Vision loss , Photosensitivity, Double Vision Ears, nose, mouth, throat: DENIES: Tinnitus, Hearing loss, Vertigo, Nasal discharge, Oral lesions, Throat pain, Hoarseness, Ear Pain, Running Nose, Epistaxis, Sinus Pain, Toothache, Odynophagia Respiratory: COMPLAINS OF: Cough, DENIES: Apneas, Snoring, Wheezing, Hemoptysis , Sputum production, Shortness of breath Cardiovascular: COMPLAINS OF: Chest pain, Dyspnea on Exertion, Lower Extremity Edema, DENIES: Palpitations, Syncope, PND, Orthopnea, Claudication Gastrointestinal: DENIES: Abdominal pain, Black stools, Bloody stools, Constipation, Diarrhea, Nausea, Vomiting, Difficulty Swallowing, Anorexia Genitourinary: DENIES: Sexual dysfunction, Urinary frequency, Urinary incontinence, Urgency, Hematuria, Dysuria, Nocturia, Penile Discharge, Testicular Pain, Testicular Swelling Musculoskeletal: COMPLAINS OF: Muscle aches, Stiffness, DENIES: Joint pain, Joint Swelling, Back pain, Neck pain Integumentary: DENIES: Abnormal pigmentation, Nail changes, Pruritus, Rash Hematologic/lymphatic: DENIES: Bruising, Lymphadenopathy Immunologic/allergic: DENIES: Eczema, Urticaria Neurologic: DENIES: Abnormal gait, Headache, Localized weakness, Paresthesias, Seizures, Speech Problems, Tremor, Poor Balance Psychiatric: DENIES: Anxiety, Confusion, Mood changes, Depression, Hallucinations, Agitation, Suicidal Ideation, Homicidal Ideation, Delusions Past Family Social History Allergies: Coded Allergies: No Known Allergies (Verified Allergy, Unknown, 09/12/17) Past Medical History The patient has significant past medical history of prior non-ST segment AZ, which was related to the initial time of severe anemia in 2013 with repeat elevated troponins on this admission of 28. Aortic insufficiency, aortic stenosis, end stage kidney disease COPD, hyperlipidemia, hypertension, morbid obesity with obstructive sleep apnea, spinal stenosis PAST SURGICAL HISTORY: Include appendectomy, right carpal tunnel surgery. He has had a vas cath placed. He has undergone cardiac catheterization. CURRENT MEDICATIONS: 1. Amlodipine. 2. Atorvastatin. 3. Losartan. 4. Metoprolol. 5. Tylenol. FAMILY HISTORY: Father at 59 from an [place]. Mother with failure to thrive at 81. SOCIAL HISTORY: The patient is , 2 children, retired from the [employer]. He continues to smoke 1 pack for the last 30 years. Drinks 2 glasses of wine or whiskey daily. Active Ordered Medications Current Medications Medications (Trade) Dose Ordered Sig/Marylou Route Start Time Stop Time Status Last Admin Sodium Chloride 1,000 ml @ 30 mls/hr Q24H IV 09/03/17 23:21 09/08/17 22:41 (NS Flush) 2 ml UNSCH PRN IV FLUSH 6/6/18 23:30 (NS Flush) 2 ml BID IV FLUSH 09/04/17 09:00 09/18/17 09:00 (Tylenol) 650 mg Q6H PRN PO 09/03/17 23:30 (Morphine Inj) 2 mg Q2H PRN IV PUSH 09/03/17 23:30 (Zofran Odt) 4 mg Q6H PRN PO 09/03/17 23:30 (Duoneb Neb) 1 ampule Q2HR NEB PRN INH 09/03/17 23:30 09/04/17 12:14 ([facility] [place] [facility]) 1 Q361D XX 09/03/17 23:30 09/03/17 23:30 (Chlorhexidine 2% Cloth) Taper DAILY@04 TOP 09/04/17 04:00 08/31/18 03:59 09/09/17 03:57 (Chlorhexidine 2% Cloth) 3 pack UNSCH PRN TOP 09/03/17 23:30 (Sylvie-Colace) 1 tab BID PO 09/04/17 09:00 09/18/17 09:18 (Milk Of Magnesia Liq) 30 ml Q12H PRN PO 09/03/17 23:30 (Senokot) 17.2 mg Q12H PRN PO 09/03/17 23:30 (Dulcolax Supp) 10 mg DAILY PRN RECTAL 09/03/17 23:30 (Lactulose Liq) 30 ml DAILY PRN PO 09/03/17 23:30 (Norvasc) 10 mg DAILY PO 09/04/17 09:00 09/18/17 09:17 (Lipitor) 80 mg HS PO 09/04/17 21:00 09/17/17 21:00 (Vitamin D3) 1,000 units DAILY PO 09/04/17 09:00 09/18/17 09:18 (Toprol Xl) 50 mg DAILY PO 09/04/17 09:00 09/18/17 09:18 (Ecotrin Ec) 81 mg DAILY PO 09/04/17 09:00 09/18/17 09:17 Sodium Chloride 1,000 ml @ 0 mls/hr Q0M PRN OTHER 09/05/17 10:20 (Heparin Inj) 8,000 units UNSCH PRN IV FLUSH 09/05/17 10:30 Sodium Chloride 1,000 ml @ 200 mls/hr Q5H PRN IV 09/05/17 10:20 Sodium Chloride 1,000 ml @ 0 mls/hr Q0M PRN OTHER 09/05/17 10:20 (Mannitol Inj) 12.5 gm UNSCH PRN IV 09/05/17 10:30 Albumin Human 100 ml @ 60 mls/hr UNSCH PRN IV 09/05/17 10:30 09/10/17 09:17 (NS Flush) 5 ml UNSCH PRN IV FLUSH 09/05/17 10:30 (Heparin Inj) UNSCH PRN .XX 09/05/17 10:30 09/17/17 11:14 (Gentamicin Inj) 20 mg UNSCH PRN OTHER 09/05/17 10:30 09/12/17 11:51 (Zofran Inj) 4 mg UNSCH PRN IV PUSH 09/05/17 10:30 (Tylenol) 650 mg UNSCH PRN PO 09/05/17 10:30 (Benadryl) 25 mg UNSCH PRN PO 09/05/17 10:30 (Nitrostat Sl) 0.4 mg UNSCH PRN SL 09/05/17 10:30 (Catapres) 0.1 mg UNSCH PRN PO 09/05/17 10:30 (Gelfoam 12 Mm/7 Mm Top) 1 foam UNSCH PRN TOP 09/05/17 10:30 (Protonix) 40 mg DAILY PO 09/06/17 09:00 09/18/17 09:17 (Vitamin B1) 100 mg DAILY PO 09/05/17 16:30 09/18/17 09:18 (Folate) 1 mg DAILY PO 09/06/17 09:00 09/18/17 09:17 (Theragran) 1 tab DAILY PO 09/06/17 09:00 09/18/17 09:18 (Epogen Inj) 10,000 units UNSCH PRN IV PUSH 09/06/17 12:15 09/17/17 11:11 (Lasix) 40 mg DAILY PO 09/09/17 09:00 09/18/17 09:18 (Cordarone) 200 mg DAILY PO 09/10/17 09:00 09/18/17 09:17 Lactated Ringer's 1,000 ml @ 30 mls/hr Q24H PRN IV 09/16/17 02:45 09/19/17 02:44 Sodium Chloride 500 ml @ 30 mls/hr [id number] PRN IV 09/16/17 02:45 09/19/17 02:44 (Betadine 5% Antisepsis Kit) 1 applic PREMIUM CANCELLATION CLERK PRN EACH NARE 09/16/17 02:45 09/19/17 02:44 (Chlorhexidine 2% Cloth) 3 pack PREMIUM CANCELLATION CLERK PRN TOPICAL 09/16/17 02:45 09/19/17 02:44 (Plavix) 75 mg DAILY PO 09/17/17 09:00 09/18/17 09:18 Physical Exam Vital Signs Vital Signs Date Time Temp Pulse Resp B/P (MAP) Pulse Ox O2 Delivery O2 Flow Rate FiO2 09/18/17 12:00 98.1 78 18 112/65 (81) 99 09/18/17 12:00 69 09/18/17 11:00 74 09/18/17 10:00 78 09/18/17 09:00 82 09/18/17 08:00 Room Air 09/18/17 08:00 98.2 81 20 150/97 (114) 99 09/18/17 08:00 69 09/18/17 07:00 66 09/18/17 07:00 68 09/18/17 04:00 99.2 79 18 114/60 (78) 99 09/18/17 04:00 73 09/18/17 00:00 98.6 75 20 124/65 (84) 100 09/18/17 00:00 70 09/17/17 20:00 76 09/17/17 20:00 100 Room Air 09/17/17 20:00 98.3 76 19 137/75 (95) 100 09/17/17 18:00 78 09/17/17 17:00 90 09/17/17 16:00 88 09/17/17 16:00 98.1 77 16 117/79 (92) 99 09/17/17 15:00 80 09/17/17 14:00 90 09/17/17 13:00 88 Physical Exam GENERAL: This is a well-nourished, well-developed patient, in no apparent distress. SKIN: No rashes, ecchymoses or lesions. Cool and dry. HEAD: Atraumatic. Normocephalic. No temporal or scalp tenderness. EYES: Pupils equal round and reactive. Extraocular motions intact. No scleral icterus. No injection or drainage. ENT: Nose without bleeding, purulent drainage or septal hematoma. Throat without erythema, tonsillar hypertrophy or exudate. Uvula midline. Airway patent. NECK: Trachea midline. No JVD or lymphadenopathy. Supple, nontender, no meningeal signs. CARDIOVASCULAR: Regular rate and rhythm with 2/6 OMID at the RUSB. RESPIRATORY: Bilateral crackles. GASTROINTESTINAL: Abdomen soft, non-tender, nondistended. No hepato-splenomegaly , or palpable masses. No guarding. MUSCULOSKELETAL: Extremities without clubbing, cyanosis, or edema. No joint tenderness, effusion, or edema noted. No calf tenderness. Negative Homans sign bilaterally. NEUROLOGICAL: Awake and alert. Cranial nerves II through XII intact. Motor and sensory grossly within normal limits. Five out of 5 muscle strength in all muscle groups. Normal speech. Laboratory Laboratory Tests Test 09/18/17 05:11 White Blood Count 8.2 Red Blood Count 2.85 Hemoglobin 8.4 Hematocrit 25.7 Mean Corpuscular Volume 90.3 Mean Corpuscular Hemoglobin 29.3 Mean Corpuscular Hemoglobin Concent 32.5 Red Cell Distribution Width 24.2 Platelet Count 263 Mean Platelet Volume 8.5 Blood Urea Nitrogen 33 Creatinine 4.50 Random Glucose 82 Calcium Level 8.6 Sodium Level 142 Potassium Level 3.4 Chloride Level 103 Carbon Dioxide Level 29.3 Anion Gap 10 Estimat Glomerular Filtration Rate 13 Result Diagram: 09/18/17 0511 09/18/17 0511 Imaging Last Impressions Chest CTA 09/16/17 0000 Signed Impressions: CONCLUSION: 1. Size measurements of the aortic root and tubular portion of the ascending a aide are listed above. The iliac circulation and the abdominal aorta are adequa te in caliber for delivery of the TAVR device. 2. There is extensive calcification of the valvular leaflets. There is only mi nimal calcification of the aortic annulus. There is mild cardiomegaly. 3. COPD changes within the pulmonary parenchyma. GI Bleed Scan Nuclear Medicine 09/13/17 0000 Signed Impressions: CONCLUSION: 1. No focal abnormality to suggest active hemorrhage. Catheter Placement X-Ray 09/12/17 0000 Signed Impressions: CONCLUSION: 1. Uncomplicated PermaCath placement as above. Chest X-Ray 09/04/17 0600 Signed Impressions: CONCLUSION: Cardiomegaly with minimal basilar atelectasis. No significant change from September 03. Course The patient had a Vascath placed and is being dialyzed per Nephrology. He denies chest pain and is stable. He continnues to have issues with anemia which may be related to renal failure vs GI source. Assessment and Plan Problem List: (1) Diastolic heart failure ICD Codes: I50.30 - Unspecified diastolic (congestive) heart failure (2) End stage renal disease ICD Codes: N18.6 - End stage renal disease Status: Acute (3) Coronary artery disease ICD Codes: I25.10 - Atherosclerotic heart disease of [place] coronary artery without angina pectoris Status: Chronic (4) Aortic stenosis ICD Codes: I35.0 - Nonrheumatic aortic (valve) stenosis Status: Chronic (5) Non-ST elevation [place] (NSTEMI) ICD Codes: I21.4 - Non-ST elevation [place] (NSTEMI) Status: Acute Assessment and Plan 72y/o male with multiple comorbidities presents with NSTEMI. He has known severe and single vessel CAD. His surgical risk is as follows: Risk Model and Variables - STS Adult Cardiac Surgery Database Version 2.81 RISK SCORES About the STS Risk Calculator Procedure: AV Replacement + CAB Risk of Mortality: 7.079% Morbidity or Mortality: 32.314% Long Length of Stay: 19.852% Short Length of Stay: 11.766% Permanent Stroke: 1.935% Prolonged Ventilation: 21.448% DSW Infection: 0.772% Renal Failure: N/A Reoperation: 13.399% Based on this patients operative risk, recommend consideration of PCI for the LAD lesion and TAVR. Problem Qualifiers (1) Coronary artery disease: Qualified Codes: I25.110 - Atherosclerotic heart disease of [place] coronary artery with unstable angina pectoris (2) Aortic stenosis: Qualified Codes: I35.0 - Nonrheumatic aortic (valve) stenosis (3) Hyperlipidemia: Qualified Codes: E78.5 - Hyperlipidemia, unspecified (4) GI bleed: Qualified Codes: K92.2 - Gastrointestinal hemorrhage, unspecified (5) Diastolic heart failure: Qualified Codes: I50.33 - Acute on chronic diastolic (congestive) heart failure Kelsy Cordova MD Sep 18, 2017 12:59
--- NOTE | 2017-09-18 15:28 | HHI.PR ---
Subjective Remarks Patient reports he is feeling okay today. No chest pain. He is hoping his hemoglobin remaining stable so he can go through with heart catheterization. This is scheduled for Friday Objective Vitals Vital Signs Date Time Temp Pulse Resp B/P (MAP) Pulse Ox O2 Delivery O2 Flow Rate FiO2 09/18/17 12:00 98.1 78 18 112/65 (81) 99 09/18/17 12:00 69 09/18/17 11:00 74 09/18/17 10:00 78 09/18/17 09:00 82 09/18/17 08:00 Room Air 09/18/17 08:00 98.2 81 20 150/97 (114) 99 09/18/17 08:00 69 09/18/17 07:00 66 09/18/17 07:00 68 09/18/17 04:00 99.2 79 18 114/60 (78) 99 09/18/17 04:00 73 09/18/17 00:00 98.6 75 20 124/65 (84) 100 09/18/17 00:00 70 09/17/17 20:00 76 09/17/17 20:00 100 Room Air 09/17/17 20:00 98.3 76 19 137/75 (95) 100 09/17/17 18:00 78 09/17/17 17:00 90 09/17/17 16:00 88 09/17/17 16:00 98.1 77 16 117/79 (92) 99 I/O 09/17/17 09/17/17 09/17/17 09/18/17 09/18/17 09/18/17 07:00 15:00 23:00 07:00 15:00 23:00 Intake Total 240 ml 760 ml 480 ml Output Total 150 ml 800 ml 650 ml 250 ml Balance 90 ml -800 ml 110 ml 230 ml Intake Oral 240 ml 760 ml 480 ml Output Urine Total 150 ml 650 ml 250 ml Hemodialysis 800 ml # Voids 2 # Bowel Movements 0 0 Result Diagram: 09/18/17 0509/18/17 0511 Objective Remarks GENERAL: This is a well-nourished, well-developed patient, in no apparent distress. CARDIOVASCULAR: Normal rate and regular rhythm. 2 out of 6 OMID murmur best heard over the left upper sternal border. RESPIRATORY: Good respiratory efforts. Diminished breath sounds at the bases. Otherwise breath sounds equal and clear to auscultation bilaterally. GASTROINTESTINAL: Abdomen soft, non-tender, non-distended. Normal active bowel sounds MUSCULOSKELETAL: Extremities without cyanosis, or edema. NEURO: Alert & Oriented x4 to person, place, time, situation. Moves all ext x4 PSYCH: Appropriate mood and affect. A/P Assessment and Plan 72-year-old male admitted secondary to chest pain status post NSTEMI. chronic kidney disease present at baseline. NSTEMI CAD Paroxysmal a-fif Aortic Stenosis HTN Plan for high risk PCI. This is scheduled for Friday. Trial of antiplatelet per cardiology to ensure hemoglobin is not dropping following. TVAR plan for the future per Cardiology. CT surgery consulted. Continue Norvasc Continue metoprolol Continue amiodarone Cardiology following Follow on telemetry Severe Anemia Recurrent GI bleed bleeding scan negative Colonoscopy revealed diverticulosis, polyp, and hemorrhoids but no active bleeding. S/P transfusion, Monitor H&H. Will give him a holiday tomorrow and plan to recheck on Friday. Continue iron supplement Continue Epogen End-stage renal disease Nephrology following Continue dialysis Replace K Discharge Planning Trial of antiplatelet to ensure hemoglobin is not dropping per cardiology. Follow H&H. High risk PCI scheduled for Friday. TAVR in the future. Darby Granados MD Sep 18, 2017 15:28
--- NOTE | 2017-09-18 16:17 | HHI.NPPN ---
Subjective History of Present Illness 72-year-old white male with history of hypertension, chronic kidney disease approaching ESRD who developed chest pain and shortness of breath Review of Systems General Constitutional: Fatigue Objective Data Data Vital Signs Date Time Temp Pulse Resp B/P (MAP) Pulse Ox O2 Delivery O2 Flow Rate FiO2 09/18/17 16:00 98.7 71 18 121/58 (79) 98 09/18/17 16:00 67 09/18/17 15:00 66 09/18/17 14:00 74 09/18/17 13:00 76 09/18/17 12:00 98.1 78 18 112/65 (81) 99 09/18/17 12:00 69 09/18/17 11:00 74 09/18/17 10:00 78 09/18/17 09:00 82 09/18/17 08:00 Room Air 09/18/17 08:00 98.2 81 20 150/97 (114) 99 09/18/17 08:00 69 09/18/17 07:00 66 09/18/17 07:00 68 09/18/17 04:00 99.2 79 18 114/60 (78) 99 09/18/17 04:00 73 09/18/17 00:00 98.6 75 20 124/65 (84) 100 09/18/17 00:00 70 09/17/17 20:00 76 09/17/17 20:00 100 Room Air 09/17/17 20:00 98.3 76 19 137/75 (95) 100 09/17/17 18:00 78 09/17/17 17:00 90 -: 09/18/17 0511 09/18/17 0511 Physical Exam General Appearance: Well Developed, Well Nourished Pulmonary Resp Exam: Crackles, Decreased Bases Cardiology CV Exam: Regular, Normal Sinus Rhythm, Murmur Gastrointestinal/Abdomen GI Exam: Soft, Non-Tender, Bowel Sounds Present Extremeties Extremities Exam: Trace Edema Neurologic Neuro Exam: Alert, Awake, Oriented Assessment/Plan Problem List: (1) Acute renal failure ICD Codes: N17.9 - Acute kidney failure, unspecified Plan: Continue HD MWF. heart catheterization done severe two-vessel coronary artery disease LAD 80% and right coronary artery total occlusion severely AV stenosis TAVR and coronary stent planned after GI issues resolve. Continue supportive care Permcath in place repeat colonoscopy polypectomy done no obvious source of bleeding Possible stent after GI clearance possible next week next HD in am replace K Need outpatient dialysis setup (2) CKD (chronic kidney disease) stage 4, GFR 15-29 ml/min ICD Codes: N18.4 - Chronic kidney disease, stage 4 (severe) Plan: Patient may have progress to stage V (3) GI bleed ICD Codes: K92.2 - Gastrointestinal hemorrhage, unspecified Status: Acute Plan: GI following. (4) Anemia ICD Codes: D64.9 - Anemia Status: Acute Plan: Status post blood transfusion (5) ACS (acute coronary syndrome) ICD Codes: I24.9 - Acute ischemic heart disease, unspecified Status: Acute Plan: Cardiology following. s/p Cath. Has CAD and . (6) Hypertension ICD Codes: I10 - Essential (primary) hypertension Plan: Continue to monitor Problem Qualifiers (1) GI bleed: Qualified Codes: K92.2 - Gastrointestinal hemorrhage, unspecified Gaurav Shah MD Sep 18, 2017 16:17
[2017-09-18] MEDS ORDERED: POTASSIUM CHLORIDE 20 MEQ CONTROLLED RELEASE TAB PO ONE (17:00)
[2017-09-18] MEDS: ATORVASTATIN 80 MG TAB PO SCH (21:27)
[2017-09-19] VITALS (24 sets, daily range): BP systolic 100–129; BP diastolic 47–92; PULSE 66–90; RESP 18–20; TEMP 97.9–98.7; O2SAT 97–100
[2017-09-19] MEDS: CHLORHEXIDINE GLUCONATE 2 % 1 PACK (2 CLOTHS) TOP SCH (04:00)
[2017-09-19] MEDS: EPOETIN ALFA 10,000 UNITS/ML VIAL IV PUSH PRN (10:30)
[2017-09-19] MEDS: HEPARIN SODIUM - IV 10,000 UNITS/10 ML VIAL PRN (10:42)
[2017-09-19] MEDS: GENTAMICIN SULFATE 20 MG/2 ML VIAL OTHER PRN (10:42)
[2017-09-19] MEDS: CHOLECALCIFEROL (VIT D3) 1000 UNIT TAB PO SCH (11:55)
[2017-09-19] MEDS: MULTIVITAMIN TAB PO SCH (11:55)
[2017-09-19] MEDS: DOCUSATE SODIUM 50 MG/SENNA 8.6 MG TAB PO SCH ×2 (11:55→21:05)
[2017-09-19] MEDS: AMIODARONE 200 MG TAB PO SCH (11:56)
[2017-09-19] MEDS: METOPROLOL SUCCINATE 50 MG EXTENDED RELEASE TAB PO SCH (11:56)
[2017-09-19] MEDS: FUROSEMIDE 40 MG TAB PO SCH (11:56)
[2017-09-19] MEDS: PANTOPRAZOLE SOD 40 MG DELAYED RELEASE TAB PO SCH (11:57)
[2017-09-19] MEDS: FOLIC ACID 1 MG TAB PO SCH (11:57)
[2017-09-19] MEDS: THIAMINE HCL 100 MG TAB PO SCH (11:57)
[2017-09-19] MEDS: CLOPIDOGREL 75 MG TAB PO SCH (11:57)
[2017-09-19] MEDS: ASPIRIN EC 81 MG TABEC PO SCH (11:58)
[2017-09-19] MEDS: SODIUM CHLORIDE 0.9% FLUSH 10 ML FLUSH IV FLUSH SCH ×2 (11:58→21:00)
--- NOTE | 2017-09-19 13:30 | RSPPFT ---
DATE OF PROCEDURE: 09/17/17 COMMENTS: Spirometry with FVC of 3.0 predicted 3.5, FEV1 of 2.3 predicted 2.8, FEV1/FVC ratio 75% predicted 78%. IMPRESSION: On the basis of the above, patient has flow values within the predicted range.
--- NOTE | 2017-09-19 15:41 | HHI.PR ---
Subjective Remarks The pt was using his CPAP. He had questions about the procedure on Friday. Otherwise had no acute complaints. He does endorse shortness of breath with exertion. He has been eating well and sleeping at night. He has been ambulatory. Discussed with nursing. Objective Vitals Vital Signs Date Time Temp Pulse Resp B/P (MAP) Pulse Ox O2 Delivery O2 Flow Rate FiO2 09/19/17 11:37 98.0 89 20 100/47 (64) 98 09/19/17 11:37 Room Air 98 09/19/17 09:51 97 21 09/19/17 06:00 71 09/19/17 05:00 74 09/19/17 04:00 78 09/19/17 03:14 97.9 78 20 129/67 (87) 100 09/19/17 03:00 71 09/19/17 02:00 71 09/19/17 01:00 68 09/19/17 00:00 66 09/18/17 23:15 98.5 70 20 144/68 (93) 98 09/18/17 23:00 71 09/18/17 22:00 72 09/18/17 21:00 68 09/18/17 20:00 68 09/18/17 19:54 98.3 70 16 154/67 (96) 99 09/18/17 19:54 99 Room Air 09/18/17 19:00 72 09/18/17 18:00 74 09/18/17 17:00 82 09/18/17 16:00 98.7 71 18 121/58 (79) 98 09/18/17 16:00 67 I/O 09/18/17 09/18/17 09/18/17 09/19/17 09/19/17 09/19/17 07:00 15:00 23:00 07:00 15:00 23:00 Intake Total 480 ml 720 ml 240 ml Output Total 250 ml 950 ml 650 ml 2500 ml Balance 230 ml -230 ml -410 ml -2500 ml Intake Oral 480 ml 720 ml 240 ml Output Urine Total 250 ml 950 ml 650 ml Hemodialysis 2500 ml # Bowel Movements 1 1 Result Diagram: 09/18/17 0511 09/18/17 0511 Imaging Last Impressions Chest CTA 09/16/17 0000 Signed Impressions: CONCLUSION: 1. Size measurements of the aortic root and tubular portion of the ascending a aide are listed above. The iliac circulation and the abdominal aorta are adequa te in caliber for delivery of the TAVR device. 2. There is extensive calcification of the valvular leaflets. There is only mi nimal calcification of the aortic annulus. There is mild cardiomegaly. 3. COPD changes within the pulmonary parenchyma. GI Bleed Scan Nuclear Medicine 09/13/17 0000 Signed Impressions: CONCLUSION: 1. No focal abnormality to suggest active hemorrhage. Catheter Placement X-Ray 09/12/17 0000 Signed Impressions: CONCLUSION: 1. Uncomplicated PermaCath placement as above. Chest X-Ray 09/04/17 0600 Signed Impressions: CONCLUSION: Cardiomegaly with minimal basilar atelectasis. No significant change from September 03. Objective Remarks GENERAL: This is a well-nourished, well-developed patient, in no apparent distress. CARDIOVASCULAR: Normal rate and regular rhythm. Harsh OMID murmur noted. RESPIRATORY: Good respiratory efforts. Diminished breath sounds at the bases. Otherwise breath sounds equal and clear to auscultation bilaterally. GASTROINTESTINAL: Abdomen soft, non-tender, non-distended. Normal active bowel sounds. MUSCULOSKELETAL: Extremities without cyanosis, or edema. NEURO: Alert & Oriented x4 to person, place, time, situation. Moves all ext x4 PSYCH: Appropriate mood and affect. A/P Assessment and Plan NSTEMI/CAD/Paroxysmal a-fib/Aortic Stenosis/HTN The pt presented with CP which has resolved. CT surgery consult appreciated. - Plan for high risk PCI. This is scheduled for Friday. - Trial of antiplatelet per cardiology to ensure hemoglobin is not dropping following. - TVAR plan for the future per Cardiology. - Continue Norvasc, metoprolol, amiodarone. - Follow on telemetry. Severe Anemia/ Recurrent GI bleed Bleeding scan negative. Colonoscopy revealed diverticulosis, polyp, and hemorrhoids but no active bleeding. S/P transfusion. - follow CBC. - Continue iron supplement - Continue Epogen End-stage renal disease Nephrology consult appreciated. - Continue dialysis. - Replace K. PPx: John Jenkins DO Sep 19, 2017 15:41
--- NOTE | 2017-09-19 15:47 | HHI.NPPN ---
Subjective History of Present Illness 72-year-old white male with history of hypertension, chronic kidney disease approaching ESRD who developed chest pain and shortness of breath Review of Systems General Constitutional: Fatigue Objective Data Data 09/19/17 09/20/17 19:00 07:00 Output Total 2500 ml Balance -2500 ml Hemodialysis 2500 ml Vital Signs Date Time Temp Pulse Resp B/P (MAP) Pulse Ox O2 Delivery O2 Flow Rate FiO2 09/19/17 11:37 98.0 89 20 100/47 (64) 98 09/19/17 11:37 Room Air 98 09/19/17 09:51 97 21 09/19/17 06:00 71 09/19/17 05:00 74 09/19/17 04:00 78 09/19/17 03:14 97.9 78 20 129/67 (87) 100 09/19/17 03:00 71 09/19/17 02:00 71 09/19/17 01:00 68 09/19/17 00:00 66 09/18/17 23:15 98.5 70 20 144/68 (93) 98 09/18/17 23:00 71 09/18/17 22:00 72 09/18/17 21:00 68 09/18/17 20:00 68 09/18/17 19:54 98.3 70 16 154/67 (96) 99 09/18/17 19:54 99 Room Air 09/18/17 19:00 72 09/18/17 18:00 74 09/18/17 17:00 82 09/18/17 16:00 98.7 71 18 121/58 (79) 98 09/18/17 16:00 67 -: 09/18/17 0511 09/18/17 0511 Physical Exam General Appearance: Well Developed, Well Nourished Pulmonary Resp Exam: Crackles, Decreased Bases Cardiology CV Exam: Regular, Normal Sinus Rhythm, Murmur Gastrointestinal/Abdomen GI Exam: Soft, Non-Tender, Bowel Sounds Present Extremeties Extremities Exam: Trace Edema Neurologic Neuro Exam: Alert, Awake, Oriented Assessment/Plan Problem List: (1) Acute renal failure ICD Codes: N17.9 - Acute kidney failure, unspecified Plan: Continue HD MWF. heart catheterization done severe two-vessel coronary artery disease LAD 80% and right coronary artery total occlusion severely AV stenosis TAVR and coronary stent planned after GI issues resolve. Continue supportive care Permcath in place repeat colonoscopy polypectomy done no obvious source of bleeding Possible stent after GI clearance possible next week next HD done today 2.5 L off replace K Need outpatient dialysis setup (2) CKD (chronic kidney disease) stage 4, GFR 15-29 ml/min ICD Codes: N18.4 - Chronic kidney disease, stage 4 (severe) Plan: Patient may have progress to stage V (3) GI bleed ICD Codes: K92.2 - Gastrointestinal hemorrhage, unspecified Status: Acute Plan: GI following. (4) Anemia ICD Codes: D64.9 - Anemia Status: Acute Plan: Status post blood transfusion (5) ACS (acute coronary syndrome) ICD Codes: I24.9 - Acute ischemic heart disease, unspecified Status: Acute Plan: Cardiology following. s/p Cath. Has CAD and . (6) Hypertension ICD Codes: I10 - Essential (primary) hypertension Plan: Continue to monitor Problem Qualifiers (1) GI bleed: Qualified Codes: K92.2 - Gastrointestinal hemorrhage, unspecified Gaurav Shah MD Sep 19, 2017 15:47
[2017-09-19] MEDS: ATORVASTATIN 80 MG TAB PO SCH (21:05)
[2017-09-19] MEDS: SODIUM CHLOR 0.9% 1000 ML INJ 1,000 ML IV SCH (23:21)
[2017-09-20] VITALS (24 sets, daily range): BP systolic 101–124; BP diastolic 54–74; PULSE 67–92; RESP 16–20; TEMP 98.3–98.7; O2SAT 99–100
[2017-09-20] MEDS: CHLORHEXIDINE GLUCONATE 2 % 1 PACK (2 CLOTHS) TOP SCH (02:53)
[2017-09-20 05:29] LABS: HEMATOCRIT 26.5 % (39.0-51.0); HEMOGLOBIN 8.8 GM/DL (13.0-17.0); MEAN CELL VOLUME 90.2 FL (80.0-100.0); MEAN CORPUSCULAR HGB CONC 33.2 % (32.0-36.0); MEAN PLATELET VOLUME 8.4 FL (7.0-11.0); PLATELET COUNT 284 TH/MM3 (150-450); RED BLOOD COUNT 2.94 MIL/MM3 (4.50-5.90); RED CELL DISTRIBUTION WIDTH 24.3 % (11.6-17.2); WHITE BLOOD COUNT 8.6 TH/MM3 (4.0-11.0)
[2017-09-20 05:58] LABS: BICARBONATE 29.2 MEQ/L (21.0-32.0); CALCIUM 9.1 MG/DL (8.5-10.1); CREATININE 4.78 MG/DL (0.60-1.30); MAGNESIUM 2.9 MG/DL (1.5-2.5)
[2017-09-20] MEDS: CLOPIDOGREL 75 MG TAB PO SCH (09:44)
[2017-09-20] MEDS: FUROSEMIDE 40 MG TAB PO SCH (09:45)
[2017-09-20] MEDS: DOCUSATE SODIUM 50 MG/SENNA 8.6 MG TAB PO SCH ×2 (09:45→21:30)
[2017-09-20] MEDS: FOLIC ACID 1 MG TAB PO SCH (09:45)
[2017-09-20] MEDS: PANTOPRAZOLE SOD 40 MG DELAYED RELEASE TAB PO SCH (09:45)
[2017-09-20] MEDS: CHOLECALCIFEROL (VIT D3) 1000 UNIT TAB PO SCH (09:45)
[2017-09-20] MEDS: MULTIVITAMIN TAB PO SCH (09:45)
[2017-09-20] MEDS: ASPIRIN EC 81 MG TABEC PO SCH (09:45)
[2017-09-20] MEDS: METOPROLOL SUCCINATE 50 MG EXTENDED RELEASE TAB PO SCH (09:45)
[2017-09-20] MEDS: AMIODARONE 200 MG TAB PO SCH (09:45)
[2017-09-20] MEDS: THIAMINE HCL 100 MG TAB PO SCH (09:45)
[2017-09-20] MEDS: SODIUM CHLORIDE 0.9% FLUSH 10 ML FLUSH IV FLUSH SCH ×2 (09:46→21:30)
--- NOTE | 2017-09-20 13:59 | HHI.NPPN ---
Subjective History of Present Illness 72-year-old white male with history of hypertension, chronic kidney disease approaching ESRD who developed chest pain and shortness of breath Additional Remarks No acute complaints, tolerate HD yesterday Review of Systems General Constitutional: Fatigue Objective Data Data Vital Signs Date Time Temp Pulse Resp B/P (MAP) Pulse Ox O2 Delivery O2 Flow Rate FiO2 09/20/17 13:00 78 09/20/17 12:00 76 09/20/17 11:45 99 21 09/20/17 11:00 98.7 78 16 124/67 (86) 99 09/20/17 11:00 75 09/20/17 10:00 82 09/20/17 09:00 92 09/20/17 08:00 92 09/20/17 08:00 Room Air 09/20/17 07:00 98.4 75 20 121/74 (90) 99 09/20/17 07:00 72 09/20/17 06:00 68 09/20/17 05:00 72 09/20/17 04:00 76 09/20/17 03:35 98.5 75 20 101/54 (70) 99 09/20/17 03:00 72 09/20/17 02:00 69 09/20/17 01:00 67 09/20/17 00:00 76 09/19/17 23:09 98.3 73 20 111/63 (79) 98 09/19/17 23:00 80 09/19/17 22:00 72 09/19/17 21:00 76 09/19/17 20:00 98 Room Air 09/19/17 20:00 98.7 90 20 124/92 (103) 98 09/19/17 20:00 82 09/19/17 19:00 80 09/19/17 17:00 80 09/19/17 16:00 98.2 83 18 127/63 (84) 98 09/19/17 16:00 84 09/19/17 15:00 89 09/19/17 14:00 82 -: 09/20/17 0435 09/20/17 0435 Physical Exam General Appearance: Well Developed, Well Nourished Pulmonary Resp Exam: Crackles, Decreased Bases Cardiology CV Exam: Regular, Normal Sinus Rhythm, Murmur Gastrointestinal/Abdomen GI Exam: Soft, Non-Tender, Bowel Sounds Present Extremeties Extremities Exam: Trace Edema Neurologic Neuro Exam: Alert, Awake, Oriented Assessment/Plan Problem List: (1) Acute renal failure ICD Codes: N17.9 - Acute kidney failure, unspecified Plan: Continue HD MWF. HD done yesterday, next HD Friday Heart catheterization done severe two-vessel coronary artery disease LAD 80% and right coronary artery total occlusion severely AV stenosis TAVR and coronary stent planned after GI issues resolve. Continue supportive care Permcath in place repeat colonoscopy polypectomy done no obvious source of bleeding Possible stent after GI clearance possible next week Needs outpatient dialysis setup (2) CKD (chronic kidney disease) stage 4, GFR 15-29 ml/min ICD Codes: N18.4 - Chronic kidney disease, stage 4 (severe) Plan: Patient may have progress to stage V (3) GI bleed ICD Codes: K92.2 - Gastrointestinal hemorrhage, unspecified Status: Acute Plan: GI following. (4) Anemia ICD Codes: D64.9 - Anemia Status: Acute Plan: Status post blood transfusion (5) ACS (acute coronary syndrome) ICD Codes: I24.9 - Acute ischemic heart disease, unspecified Status: Acute Plan: Cardiology following. s/p Cath. Has CAD and . (6) Hypertension ICD Codes: I10 - Essential (primary) hypertension Plan: Continue to monitor Problem Qualifiers (1) GI bleed: Qualified Codes: K92.2 - Gastrointestinal hemorrhage, unspecified Haris España MD Sep 20, 2017 13:59
--- NOTE | 2017-09-20 15:37 | HHI.PR ---
Subjective Remarks The patient was resting comfortably using CPAP in bed. He said that he had a discussion with the human services manager about the pros and cons of hemodialysis versus peritoneal dialysis. He had no acute complaints. Discussed with nursing. Objective Vitals Vital Signs Date Time Temp Pulse Resp B/P (MAP) Pulse Ox O2 Delivery O2 Flow Rate FiO2 09/20/17 13:00 78 09/20/17 12:00 76 09/20/17 11:45 99 21 09/20/17 11:00 98.7 78 16 124/67 (86) 99 09/20/17 11:00 75 09/20/17 10:00 82 09/20/17 09:00 92 09/20/17 08:00 92 09/20/17 08:00 Room Air 09/20/17 07:00 98.4 75 20 121/74 (90) 99 09/20/17 07:00 72 09/20/17 06:00 68 09/20/17 05:00 72 09/20/17 04:00 76 09/20/17 03:35 98.5 75 20 101/54 (70) 99 09/20/17 03:00 72 09/20/17 02:00 69 09/20/17 01:00 67 09/20/17 00:00 76 09/19/17 23:09 98.3 73 20 111/63 (79) 98 09/19/17 23:00 80 09/19/17 22:00 72 09/19/17 21:00 76 09/19/17 20:00 98 Room Air 09/19/17 20:00 98.7 90 20 124/92 (103) 98 09/19/17 20:00 82 09/19/17 19:00 80 09/19/17 17:00 80 09/19/17 16:00 98.2 83 18 127/63 (84) 98 09/19/17 16:00 84 I/O 09/19/17 09/19/17 09/19/17 09/20/17 09/20/17 09/20/17 07:00 15:00 23:00 07:00 15:00 23:00 Intake Total 240 ml 480 ml 240 ml Output Total 650 ml 2500 ml 900 ml 200 ml Balance -410 ml -2500 ml -420 ml 40 ml Intake Oral 240 ml 480 ml 240 ml Output Urine Total 650 ml 900 ml 200 ml Hemodialysis 2500 ml # Voids 2 # Bowel Movements 1 Result Diagram: 09/20/17 0435 09/20/17 0435 Imaging Last Impressions Chest CTA 09/16/17 0000 Signed Impressions: CONCLUSION: 1. Size measurements of the aortic root and tubular portion of the ascending a aide are listed above. The iliac circulation and the abdominal aorta are adequa te in caliber for delivery of the TAVR device. 2. There is extensive calcification of the valvular leaflets. There is only mi nimal calcification of the aortic annulus. There is mild cardiomegaly. 3. COPD changes within the pulmonary parenchyma. GI Bleed Scan Nuclear Medicine 09/13/17 0000 Signed Impressions: CONCLUSION: 1. No focal abnormality to suggest active hemorrhage. Catheter Placement X-Ray 09/12/17 0000 Signed Impressions: CONCLUSION: 1. Uncomplicated PermaCath placement as above. Chest X-Ray 09/04/17 0600 Signed Impressions: CONCLUSION: Cardiomegaly with minimal basilar atelectasis. No significant change from September 03. Objective Remarks GENERAL: This is a well-nourished, well-developed patient, in no apparent distress. CARDIOVASCULAR: Normal rate and regular rhythm. Harsh OMID murmur noted. RESPIRATORY: Good respiratory efforts. Diminished breath sounds at the bases. Otherwise breath sounds equal and clear to auscultation bilaterally. GASTROINTESTINAL: Abdomen soft, non-tender, non-distended. Normal active bowel sounds. MUSCULOSKELETAL: Extremities without cyanosis, or edema. NEURO: Alert & Oriented x4 to person, place, time, situation. Moves all ext x4 PSYCH: Appropriate mood and affect. A/P Assessment and Plan NSTEMI/CAD/Paroxysmal a-fib/Aortic Stenosis/HTN The pt presented with CP which has resolved. CT surgery consult appreciated. - Plan for high risk PCI. This is scheduled for Friday. - Trial of antiplatelet per cardiology to ensure hemoglobin is not dropping following. - TVAR plan for the future per Cardiology. - Continue Norvasc, metoprolol, amiodarone. - Follow on telemetry. Severe Anemia/ Recurrent GI bleed Bleeding scan negative. Colonoscopy revealed diverticulosis, polyp, and hemorrhoids but no active bleeding. S/P transfusion. - follow CBC. Stable. - Continue iron supplement. - Continue Epogen. End-stage renal disease Nephrology consult appreciated. - Continue dialysis as schedule. - Replace K+ as needed. PPx: John Jenkins DO Sep 20, 2017 15:37
[2017-09-20] MEDS: ATORVASTATIN 80 MG TAB PO SCH (21:30)
[2017-09-20] MEDS: SODIUM CHLOR 0.9% 1000 ML INJ 1,000 ML IV SCH (22:12)
[2017-09-21] VITALS (28 sets, daily range): BP systolic 115–145; BP diastolic 60–97; PULSE 65–85; RESP 16–18; TEMP 97.4–98.3; O2SAT 98–100
[2017-09-21] MEDS: CHLORHEXIDINE GLUCONATE 2 % 1 PACK (2 CLOTHS) TOP SCH ×2 (01:57→23:31)
[2017-09-21 06:21] LABS: AUTOMATED NEUTROPHIL # 6.8 TH/MM3 (1.8-7.7); BASOPHIL # 0.1 TH/MM3 (0-0.2); BASOPHIL % 0.7 % (0.0-2.0); EOSINOPHIL # 0.2 TH/MM3 (0-0.4); EOSINOPHIL % 2.3 % (0.0-4.0); HEMATOCRIT 24.5 % (39.0-51.0); HEMOGLOBIN 8.1 GM/DL (13.0-17.0); LYMPH % 13.5 % (9.0-44.0); LYMPHOCYTE # 1.3 TH/MM3 (1.0-4.8); MEAN CELL VOLUME 90.2 FL (80.0-100.0); MEAN CORPUSCULAR HEMOGLOBIN 29.6 PG (27.0-34.0); MEAN CORPUSCULAR HGB CONC 32.8 % (32.0-36.0); MEAN PLATELET VOLUME 8.5 FL (7.0-11.0); MONO % 11.6 % (0.0-8.0); MONOCYTE # 1.1 TH/MM3 (0-0.9); NEUT % 71.9 % (16.0-70.0); PLATELET COUNT 299 TH/MM3 (150-450); RED BLOOD COUNT 2.72 MIL/MM3 (4.50-5.90); RED CELL DISTRIBUTION WIDTH 25.6 % (11.6-17.2); WHITE BLOOD COUNT 9.5 TH/MM3 (4.0-11.0)
[2017-09-21 06:40] LABS: BICARBONATE 26.2 MEQ/L (21.0-32.0); CALCIUM 8.9 MG/DL (8.5-10.1); CREATININE 5.56 MG/DL (0.60-1.30)
[2017-09-21] MEDS: CHOLECALCIFEROL (VIT D3) 1000 UNIT TAB PO SCH (09:38)
[2017-09-21] MEDS: PANTOPRAZOLE SOD 40 MG DELAYED RELEASE TAB PO SCH (09:38)
[2017-09-21] MEDS: CLOPIDOGREL 75 MG TAB PO SCH (09:38)
[2017-09-21] MEDS: FUROSEMIDE 40 MG TAB PO SCH (09:38)
[2017-09-21] MEDS: FOLIC ACID 1 MG TAB PO SCH (09:38)
[2017-09-21] MEDS: THIAMINE HCL 100 MG TAB PO SCH (09:38)
[2017-09-21] MEDS: MULTIVITAMIN TAB PO SCH (09:38)
[2017-09-21] MEDS: METOPROLOL SUCCINATE 50 MG EXTENDED RELEASE TAB PO SCH (09:39)
[2017-09-21] MEDS: SODIUM CHLORIDE 0.9% FLUSH 10 ML FLUSH IV FLUSH SCH ×2 (09:39→21:20)
[2017-09-21] MEDS: DOCUSATE SODIUM 50 MG/SENNA 8.6 MG TAB PO SCH ×2 (09:39→21:00)
[2017-09-21] MEDS: AMIODARONE 200 MG TAB PO SCH (09:39)
[2017-09-21] MEDS: ASPIRIN EC 81 MG TABEC PO SCH (09:39)
[2017-09-21 09:55] LABS: BANDS 5 % (0-6); CORRECTED NUCLEATED RBC 2 /100 WBC (0-0); LYMPHOCYTES 11 % (9-44); MONOCYTES 10 % (0-8); NEUTROPHIL # MANUAL DIFF 7.3 TH/MM3 (1.8-7.7); NUCLEATED RED BLOOD CELL 2 (0-0); OVALOCYTES 1+ (NORMAL); POLYS (SEG NEUTROPHILS) 72 % (16-70); SPHEROCYTES OCC (NORMAL)
--- NOTE | 2017-09-21 12:33 | HHI.PR ---
Subjective Remarks The patient was sitting up in a chair and about to eat lunch. He said that he was hoping to go home on Friday after his dialysis session. He was hoping that he would be breathing better following the procedure on Friday. No acute complaints at this time. Objective Vitals Vital Signs Date Time Temp Pulse Resp B/P (MAP) Pulse Ox O2 Delivery O2 Flow Rate FiO2 09/21/17 12:00 73 09/21/17 11:00 74 09/21/17 11:00 97.8 79 16 145/97 (113) 98 09/21/17 10:00 76 09/21/17 09:00 76 09/21/17 08:00 85 09/21/17 07:00 98.1 75 16 124/67 (86) 99 09/21/17 07:00 70 09/21/17 07:00 Room Air 09/21/17 06:16 74 09/21/17 05:27 69 16 115/60 (78) 100 09/21/17 05:00 78 09/21/17 04:28 65 09/21/17 04:00 68 09/21/17 03:00 70 09/21/17 02:00 66 09/21/17 02:00 70 09/21/17 01:00 66 09/21/17 00:00 70 09/21/17 00:00 70 16 100 09/21/17 00:00 70 09/20/17 23:00 70 09/20/17 22:00 70 09/20/17 21:28 98.3 72 16 119/67 (84) 99 09/20/17 21:00 72 09/20/17 20:17 72 09/20/17 20:00 72 09/20/17 19:47 Room Air 21 09/20/17 19:00 74 09/20/17 15:00 75 09/20/17 15:00 98.6 75 16 115/60 (78) 100 09/20/17 13:00 78 I/O 09/20/17 09/20/17 09/20/17 09/21/17 09/21/17 09/21/17 07:00 15:00 23:00 07:00 15:00 23:00 Intake Total 240 ml 720 ml 240 ml Output Total 200 ml 475 ml 250 ml Balance 40 ml 245 ml -10 ml Intake Oral 240 ml 720 ml 240 ml Output Urine Total 200 ml 475 ml 250 ml # Voids 2 Result Diagram: 09/21/1752609/21/17 05 Imaging Last Impressions Chest CTA 09/16/17 0000 Signed Impressions: CONCLUSION: 1. Size measurements of the aortic root and tubular portion of the ascending a aide are listed above. The iliac circulation and the abdominal aorta are adequa te in caliber for delivery of the TAVR device. 2. There is extensive calcification of the valvular leaflets. There is only mi nimal calcification of the aortic annulus. There is mild cardiomegaly. 3. COPD changes within the pulmonary parenchyma. GI Bleed Scan Nuclear Medicine 09/13/17 0000 Signed Impressions: CONCLUSION: 1. No focal abnormality to suggest active hemorrhage. Catheter Placement X-Ray 09/12/17 0000 Signed Impressions: CONCLUSION: 1. Uncomplicated PermaCath placement as above. Chest X-Ray 09/04/17 0600 Signed Impressions: CONCLUSION: Cardiomegaly with minimal basilar atelectasis. No significant change from September 03. Objective Remarks GENERAL: This is a well-nourished, well-developed patient, in no apparent distress. CARDIOVASCULAR: Normal rate and regular rhythm. Harsh OMID murmur noted. RESPIRATORY: Good respiratory efforts. Diminished breath sounds at the bases. Otherwise breath sounds equal and clear to auscultation bilaterally. GASTROINTESTINAL: Abdomen soft, non-tender, non-distended. Normal active bowel sounds. MUSCULOSKELETAL: Extremities without cyanosis, or edema. NEURO: Alert & Oriented x4 to person, place, time, situation. Moves all ext x4 PSYCH: Appropriate mood and affect. A/P Assessment and Plan NSTEMI/CAD/Paroxysmal a-fib/Aortic Stenosis/HTN The pt presented with CP which has resolved. CT surgery consult appreciated. - Plan for high risk PCI. This is scheduled for Friday. - Trial of antiplatelet per cardiology to ensure hemoglobin is not dropping following. Follow CBC. - TVAR planned in the future per Cardiology. - Continue Norvasc, metoprolol, amiodarone. - Follow on telemetry. Severe Anemia/ Recurrent GI bleed Bleeding scan negative. Colonoscopy revealed diverticulosis, polyp, and hemorrhoids but no active bleeding. S/P transfusion. - follow CBC. - Continue iron supplement. - Continue Epogen with dialysis. End-stage renal disease Nephrology consult appreciated. - Continue dialysis as schedule. - Replace K+ as needed. Stable. PPx: John Jenkins DO Sep 21, 2017 12:33
--- NOTE | 2017-09-21 13:00 | HHI.NPPN ---
Subjective History of Present Illness 72-year-old white male with history of hypertension, chronic kidney disease approaching ESRD who developed chest pain and shortness of breath Additional Remarks No acute complaints Review of Systems General Constitutional: Fatigue Objective Data Data Vital Signs Date Time Temp Pulse Resp B/P (MAP) Pulse Ox O2 Delivery O2 Flow Rate FiO2 09/21/17 12:00 73 09/21/17 11:00 74 09/21/17 11:00 97.8 79 16 145/97 (113) 98 09/21/17 10:00 76 09/21/17 09:00 76 09/21/17 08:00 85 09/21/17 07:00 98.1 75 16 124/67 (86) 99 09/21/17 07:00 70 09/21/17 07:00 Room Air 09/21/17 06:16 74 09/21/17 05:27 69 16 115/60 (78) 100 09/21/17 05:00 78 09/21/17 04:28 65 09/21/17 04:00 68 09/21/17 03:00 70 09/21/17 02:00 66 09/21/17 02:00 70 09/21/17 01:00 66 09/21/17 00:00 70 09/21/17 00:00 70 16 100 09/21/17 00:00 70 09/20/17 23:00 70 09/20/17 22:00 70 09/20/17 21:28 98.3 72 16 119/67 (84) 99 09/20/17 21:00 72 09/20/17 20:17 72 09/20/17 20:00 72 09/20/17 19:47 Room Air 21 09/20/17 19:00 74 09/20/17 15:00 75 09/20/17 15:00 98.6 75 16 115/60 (78) 100 09/20/17 13:00 78 -: 09/21/17 0527 09/21/17 0527 Physical Exam General Appearance: Well Developed, Well Nourished Pulmonary Resp Exam: Crackles, Decreased Bases Cardiology CV Exam: Regular, Normal Sinus Rhythm, Murmur Gastrointestinal/Abdomen GI Exam: Soft, Non-Tender, Bowel Sounds Present Extremeties Extremities Exam: Trace Edema Neurologic Neuro Exam: Alert, Awake, Oriented Assessment/Plan Problem List: (1) Acute renal failure ICD Codes: N17.9 - Acute kidney failure, unspecified Plan: Continue HD MWF. Next HD Friday Heart catheterization with severe two-vessel coronary artery disease: LAD 80% and right coronary artery total occlusion severely AV stenosis TAVR and coronary stent planned for Friday Continue supportive care Permcath in place repeat colonoscopy polypectomy done no obvious source of bleeding Needs outpatient dialysis setup (2) CKD (chronic kidney disease) stage 4, GFR 15-29 ml/min ICD Codes: N18.4 - Chronic kidney disease, stage 4 (severe) Plan: Patient may have progress to stage V (3) GI bleed ICD Codes: K92.2 - Gastrointestinal hemorrhage, unspecified Status: Acute Plan: GI following. (4) Anemia ICD Codes: D64.9 - Anemia Status: Acute Plan: Status post blood transfusion (5) ACS (acute coronary syndrome) ICD Codes: I24.9 - Acute ischemic heart disease, unspecified Status: Acute Plan: Cardiology following. s/p Cath. Has CAD and . (6) Hypertension ICD Codes: I10 - Essential (primary) hypertension Plan: Continue to monitor Problem Qualifiers (1) GI bleed: Qualified Codes: K92.2 - Gastrointestinal hemorrhage, unspecified Haris España MD Sep 21, 2017 13:00
[2017-09-21] MEDS: ATORVASTATIN 80 MG TAB PO SCH (21:20)
[2017-09-21] MEDS: SODIUM CHLOR 0.9% 1000 ML INJ 1,000 ML IV SCH (23:41)
[2017-09-22] VITALS (32 sets, daily range): BP systolic 110–160; BP diastolic 53–102; PULSE 60–92; RESP 16–20; TEMP 97.5–98.5; O2SAT 94–100
--- NOTE | 2017-09-22 08:29 | PD.CARD.PN ---
Subjective Subjective Remarks doing well no complaints Objective Medications Current Medications Medications (Trade) Dose Ordered Sig/Marylou Route Start Time Stop Time Status Last Admin Sodium Chloride 1,000 ml @ 30 mls/hr Q24H IV 09/03/17 23:21 09/21/17 23:41 (NS Flush) 2 ml UNSCH PRN IV FLUSH 09/03/17 23:30 (NS Flush) 2 ml BID IV FLUSH 09/04/17 09:00 09/21/17 21:20 (Tylenol) 650 mg Q6H PRN PO 09/03/17 23:30 (Morphine Inj) 2 mg Q2H PRN IV PUSH 09/03/17 23:30 (Zofran Odt) 4 mg Q6H PRN PO 09/03/17 23:30 (Duoneb Neb) 1 ampule Q2HR NEB PRN INH 09/03/17 23:30 09/04/17 12:14 ([facility] [place] [facility]) 1 Q361D XX 09/03/17 23:30 09/03/17 23:30 (Chlorhexidine 2% Cloth) Taper DAILY@04 TOP 09/04/17 04:00 08/31/18 03:59 09/09/17 03:57 (Chlorhexidine 2% Cloth) 3 pack UNSCH PRN TOP 09/03/17 23:30 (Sylvie-Colace) 1 tab BID PO 09/04/17 09:00 09/21/17 09:39 (Milk Of Magnesia Liq) 30 ml Q12H PRN PO 09/03/17 23:30 (Senokot) 17.2 mg Q12H PRN PO 09/03/17 23:30 (Dulcolax Supp) 10 mg DAILY PRN RECTAL 09/03/17 23:30 (Lactulose Liq) 30 ml DAILY PRN PO 09/03/17 23:30 (Norvasc) 10 mg DAILY PO 09/04/17 09:00 09/21/17 09:39 (Lipitor) 80 mg HS PO 09/04/17 21:00 09/21/17 21:20 (Vitamin D3) 1,000 units DAILY PO 09/04/17 09:00 09/21/17 09:38 (Toprol Xl) 50 mg DAILY PO 09/04/17 09:00 09/21/17 09:39 (Ecotrin Ec) 81 mg DAILY PO 09/04/17 09:00 09/21/17 09:39 Sodium Chloride 1,000 ml @ 0 mls/hr Q0M PRN OTHER 09/05/17 10:20 (Heparin Inj) 8,000 units UNSCH PRN IV FLUSH 09/05/17 10:30 Sodium Chloride 1,000 ml @ 200 mls/hr Q5H PRN IV 09/05/17 10:20 Sodium Chloride 1,000 ml @ 0 mls/hr Q0M PRN OTHER 09/05/17 10:20 (Mannitol Inj) 12.5 gm UNSCH PRN IV 09/05/17 10:30 Albumin Human 100 ml @ 60 mls/hr UNSCH PRN IV 09/05/17 10:30 09/10/17 09:17 (NS Flush) 5 ml UNSCH PRN IV FLUSH 09/05/17 10:30 (Heparin Inj) UNSCH PRN .XX 09/05/17 10:30 09/19/17 10:42 (Gentamicin Inj) 20 mg UNSCH PRN OTHER 09/05/17 10:30 09/19/17 10:42 (Zofran Inj) 4 mg UNSCH PRN IV PUSH 09/05/17 10:30 (Tylenol) 650 mg UNSCH PRN PO 09/05/17 10:30 09/21/17 23:40 (Benadryl) 25 mg UNSCH PRN PO 09/05/17 10:30 09/21/17 23:40 (Nitrostat Sl) 0.4 mg UNSCH PRN SL 09/05/17 10:30 (Catapres) 0.1 mg UNSCH PRN PO 09/05/17 10:30 (Gelfoam 12 Mm/7 Mm Top) 1 foam UNSCH PRN TOP 09/05/17 10:30 (Protonix) 40 mg DAILY PO 09/06/17 09:00 09/21/17 09:38 (Vitamin B1) 100 mg DAILY PO 09/05/17 16:30 09/21/17 09:38 (Folate) 1 mg DAILY PO 09/06/17 09:00 09/21/17 09:38 (Theragran) 1 tab DAILY PO 09/06/17 09:00 09/21/17 09:38 (Epogen Inj) 10,000 units UNSCH PRN IV PUSH 09/06/17 12:15 09/19/17 10:30 (Lasix) 40 mg DAILY PO 09/09/17 09:00 09/21/17 09:38 (Cordarone) 200 mg DAILY PO 09/10/17 09:00 09/21/17 09:39 (Plavix) 75 mg DAILY PO 09/17/17 09:00 09/21/17 09:38 Vital Signs / I&O Vital Signs Date Time Temp Pulse Resp B/P (MAP) Pulse Ox O2 Delivery O2 Flow Rate FiO2 09/22/17 07:49 98 21 09/22/17 06:00 66 09/22/17 03:52 62 09/22/17 03:23 66 09/22/17 03:23 65 16 115/55 (75) 100 09/22/17 03:00 64 09/22/17 02:03 66 09/22/17 02:00 66 09/22/17 02:00 66 09/22/17 01:13 66 09/22/17 01:00 66 09/22/17 01:00 70 16 110/55 99 09/22/17 00:30 98.3 73 16 123/64 (83) 100 09/22/17 00:20 97.9 71 16 110/53 99 09/22/17 00:00 70 09/21/17 23:50 98.3 73 16 123/64 100 09/21/17 23:00 70 09/21/17 22:00 68 09/21/17 20:31 74 09/21/17 20:31 Room Air 21 09/21/17 20:30 97.4 73 18 129/66 (87) 100 09/21/17 20:00 72 09/21/17 19:56 21 09/21/17 19:00 74 09/21/17 18:00 74 09/21/17 17:00 79 09/21/17 16:00 76 09/21/17 15:00 97.6 76 16 134/68 (90) 99 09/21/17 15:00 74 09/21/17 14:00 74 09/21/17 13:00 78 09/21/17 12:00 73 09/21/17 11:00 74 09/21/17 11:00 97.8 79 16 145/97 (113) 98 09/21/17 10:00 76 09/21/17 09:00 76 I/O 09/21/17 09/21/17 09/21/17 09/22/17 09/22/17 09/22/17 07:00 15:00 23:00 07:00 15:00 23:00 Intake Total 240 ml 720 ml 1290 ml Output Total 250 ml 700 ml 75 ml Balance -10 ml 20 ml 1215 ml Intake Oral 240 ml 720 ml 480 ml Packed Cells 400 ml Blood Product IV Normal Saline Flush 410 ml Output Urine Total 250 ml 700 ml 75 ml Physical Exam GENERAL: SKIN: Warm and dry. HEAD: Normocephalic. EYES: No scleral icterus. No injection or drainage. NECK: Supple, trachea midline. No JVD or lymphadenopathy. CARDIOVASCULAR: Regular rate and rhythm without murmurs, gallops, or rubs. RESPIRATORY: Breath sounds equal bilaterally. No accessory muscle use. GASTROINTESTINAL: Abdomen soft, non-tender, nondistended. MUSCULOSKELETAL: No cyanosis, or edema. BACK: Nontender without obvious deformity. No CVA tenderness. Imaging Last Impressions Chest CTA 09/16/17 0000 Signed Impressions: CONCLUSION: 1. Size measurements of the aortic root and tubular portion of the ascending a aide are listed above. The iliac circulation and the abdominal aorta are adequa te in caliber for delivery of the TAVR device. 2. There is extensive calcification of the valvular leaflets. There is only mi nimal calcification of the aortic annulus. There is mild cardiomegaly. 3. COPD changes within the pulmonary parenchyma. GI Bleed Scan Nuclear Medicine 09/13/17 0000 Signed Impressions: CONCLUSION: 1. No focal abnormality to suggest active hemorrhage. Catheter Placement X-Ray 09/12/17 0000 Signed Impressions: CONCLUSION: 1. Uncomplicated PermaCath placement as above. Chest X-Ray 09/04/17 0600 Signed Impressions: CONCLUSION: Cardiomegaly with minimal basilar atelectasis. No significant change from September 03. Assessment and Plan Problem List: (1) Non-ST elevation OR (NSTEMI) ICD Codes: I21.4 - Non-ST elevation OR (NSTEMI) Status: Acute (2) Paroxysmal atrial fibrillation ICD Codes: I48.0 - Paroxysmal atrial fibrillation Status: Acute (3) Aortic stenosis ICD Codes: I35.0 - Nonrheumatic aortic (valve) stenosis Status: Chronic Assessment and Plan severe aortic stenosis - TAVR workup (TAVR will not be done this hospitalization) NSTEMI - severe 2 Vz CAD. High risk PCI mid LAD/diagonal branch bifurcation with occluded RCA. PCI rescheduled for today. Coordinate HD after procedure. ESRD - on HD anemia - GI cleared him. May still need capsule endoscopy. monitor Hb and evidence for bleed on antiplatelet therapy Problem Qualifiers (1) Aortic stenosis: Qualified Codes: I35.0 - Nonrheumatic aortic (valve) stenosis Roldan Pryor MD Sep 22, 2017 08:29
[2017-09-22] MEDS: SODIUM CHLORIDE 0.9% FLUSH 10 ML FLUSH IV FLUSH SCH ×2 (08:45→21:00)
[2017-09-22] MEDS: MULTIVITAMIN TAB PO SCH (08:46)
[2017-09-22] MEDS: CHOLECALCIFEROL (VIT D3) 1000 UNIT TAB PO SCH (08:46)
[2017-09-22] MEDS: CLOPIDOGREL 75 MG TAB PO SCH (08:46)
[2017-09-22] MEDS: FOLIC ACID 1 MG TAB PO SCH (08:46)
[2017-09-22] MEDS: FUROSEMIDE 40 MG TAB PO SCH (08:46)
[2017-09-22] MEDS: ASPIRIN EC 81 MG TABEC PO SCH (08:46)
[2017-09-22] MEDS: AMIODARONE 200 MG TAB PO SCH (08:46)
[2017-09-22] MEDS: THIAMINE HCL 100 MG TAB PO SCH (08:46)
[2017-09-22] MEDS: DOCUSATE SODIUM 50 MG/SENNA 8.6 MG TAB PO SCH ×2 (08:47→21:00)
[2017-09-22] MEDS: METOPROLOL SUCCINATE 50 MG EXTENDED RELEASE TAB PO SCH (08:47)
[2017-09-22] MEDS: PANTOPRAZOLE SOD 40 MG DELAYED RELEASE TAB PO SCH (08:48)
[2017-09-22] MEDS ORDERED: HEPARIN-NS/PF INJ 1,000 ML ONE (09:30)
[2017-09-22 09:57] LABS: HEMOGLOBIN 8.9 GM/DL (13.0-17.0); MEAN CELL VOLUME 90.7 FL (80.0-100.0); MEAN CORPUSCULAR HEMOGLOBIN 29.8 PG (27.0-34.0); MEAN CORPUSCULAR HGB CONC 32.8 % (32.0-36.0); MEAN PLATELET VOLUME 8.7 FL (7.0-11.0); PLATELET COUNT 321 TH/MM3 (150-450); RED BLOOD COUNT 2.98 MIL/MM3 (4.50-5.90); RED CELL DISTRIBUTION WIDTH 22.5 % (11.6-17.2); WHITE BLOOD COUNT 9.2 TH/MM3 (4.0-11.0)
[2017-09-22] MEDS ORDERED: HEPARIN-NS/PF INJ 500 ML ONE (10:39)
--- NOTE | 2017-09-22 10:46 | HHI.PR ---
Subjective Remarks The patient said that his procedure was rescheduled for today. He was hopeful to go home after dialysis tomorrow. He says that he still needs dialysis set up. He has no acute complaints at this time. Objective Vitals Vital Signs Date Time Temp Pulse Resp B/P (MAP) Pulse Ox O2 Delivery O2 Flow Rate FiO2 09/22/17 09:00 60 09/22/17 08:00 98.0 76 20 160/102 (121) 99 09/22/17 08:00 60 09/22/17 07:49 98 21 09/22/17 07:00 60 09/22/17 06:00 66 09/22/17 03:52 62 09/22/17 03:23 66 09/22/17 03:23 65 16 115/55 (75) 100 09/22/17 03:00 64 09/22/17 02:03 66 09/22/17 02:00 66 09/22/17 02:00 66 09/22/17 01:13 66 09/22/17 01:00 66 09/22/17 01:00 70 16 110/55 99 09/22/17 00:30 98.3 73 16 123/64 (83) 100 09/22/17 00:20 97.9 71 16 110/53 99 09/22/17 00:00 70 09/21/17 23:50 98.3 73 16 123/64 100 09/21/17 23:00 70 09/21/17 22:00 68 09/21/17 20:31 74 09/21/17 20:31 Room Air 21 09/21/17 20:30 97.4 73 18 129/66 (87) 100 09/21/17 20:00 72 09/21/17 19:56 21 09/21/17 19:00 74 09/21/17 18:00 74 09/21/17 17:00 79 09/21/17 16:00 76 09/21/17 15:00 97.6 76 16 134/68 (90) 99 09/21/17 15:00 74 09/21/17 14:00 74 09/21/17 13:00 78 09/21/17 12:00 73 09/21/17 11:00 74 09/21/17 11:00 97.8 79 16 145/97 (113) 98 I/O 09/21/17 09/21/17 09/21/17 09/22/17 09/22/17 09/22/17 07:00 15:00 23:00 07:00 15:00 23:00 Intake Total 240 ml 720 ml 1290 ml Output Total 250 ml 700 ml 75 ml Balance -10 ml 20 ml 1215 ml Intake Oral 240 ml 720 ml 480 ml Packed Cells 400 ml Blood Product IV Normal Saline Flush 410 ml Output Urine Total 250 ml 700 ml 75 ml Result Diagram: 09/22/17 0924 09/21/17 0527 Imaging Last Impressions Chest CTA 09/16/17 0000 Signed Impressions: CONCLUSION: 1. Size measurements of the aortic root and tubular portion of the ascending a aide are listed above. The iliac circulation and the abdominal aorta are adequa te in caliber for delivery of the TAVR device. 2. There is extensive calcification of the valvular leaflets. There is only mi nimal calcification of the aortic annulus. There is mild cardiomegaly. 3. COPD changes within the pulmonary parenchyma. GI Bleed Scan Nuclear Medicine 09/13/17 0000 Signed Impressions: CONCLUSION: 1. No focal abnormality to suggest active hemorrhage. Catheter Placement X-Ray 09/12/17 0000 Signed Impressions: CONCLUSION: 1. Uncomplicated PermaCath placement as above. Chest X-Ray 09/04/17 0600 Signed Impressions: CONCLUSION: Cardiomegaly with minimal basilar atelectasis. No significant change from September 03. Objective Remarks GENERAL: This is a well-nourished, well-developed patient, in no apparent distress. CARDIOVASCULAR: Normal rate and regular rhythm. Harsh OMID murmur noted. RESPIRATORY: Good respiratory efforts. Diminished breath sounds at the bases. Otherwise breath sounds equal and clear to auscultation bilaterally. GASTROINTESTINAL: Abdomen soft, non-tender, non-distended. Normal active bowel sounds. MUSCULOSKELETAL: Extremities without cyanosis, or edema. NEURO: Alert & Oriented x4 to person, place, time, situation. Moves all ext x4 PSYCH: Appropriate mood and affect. A/P Assessment and Plan NSTEMI/CAD/Paroxysmal a-fib/Aortic Stenosis/HTN The pt presented with CP which has resolved. CT surgery consult appreciated. - Plan for high risk PCI today. - Trial of antiplatelet per cardiology to ensure hemoglobin is not dropping following. Follow CBC. - TVAR planned in the future per Cardiology. - Continue Norvasc, metoprolol, amiodarone. - Follow on telemetry. Severe Anemia/ Recurrent GI bleed Bleeding scan negative. Colonoscopy revealed diverticulosis, polyp, and hemorrhoids but no active bleeding. S/P transfusion. - follow CBC. - Continue iron supplement. - Continue Epogen with dialysis. End-stage renal disease Nephrology consult appreciated. - Continue dialysis as scheduled. Will need outpt dialysis set up. Case management following. - Replace K+ as needed. Stable. PPx: John Jenkins DO Sep 22, 2017 10:46
[2017-09-22] MEDS ORDERED: LIDOCAINE HCL 1% PF 30 ML VIAL ONE (10:52)
[2017-09-22] MEDS ORDERED: MIDAZOLAM HCL 2 MG/2 ML VIAL ONE (10:55)
[2017-09-22] MEDS ORDERED: CANGRELOR TETRASODIUM 50,000 MCG VIAL ONE (11:35)
--- NOTE | 2017-09-22 12:24 | CATHPROC ---
[facility] HIS Report Study Information Study Number Admission Scheduled Start Study Start [id number] Sep 03 2017 11:23PM 09/22/2017 Sep 22 2017 10:40AM [place] [facility] Cardiac Catheterization Admit Source Facility Department Other [facility] - Manager Code Physician and Clinical Staff Initial Roldan Marcano Supervisor Housecleaner Garcia KnightRN Supervisor Housecleaner Nazia Shaw RN Other cathlab, cathlab Recorder Joselito Deleon RCIS(BS) Scrub Moni Cho ,(R) Procedures Performed Procedure Location (Site) Vessel Name L Heart Cath PTCA DIAG1 Prox Left Coronary PTCA LAD Prox Left Coronary Stent LAD Prox Left Coronary Wire insertion Fem Art (right) Femoral Art Equipment Time Speech Language Specialist Description Size Mfg Part Number Used/Scraped COPILOT VALVE, BLEEDBACK [id number] 10:45 [employer] Used CONTROL *[id number] TRANSDUCER, TRUWAVE [id number] 10:43 BRUCE BARRON * Used W/STOCKCOCK *[id number] *[id number] 12:11 [facility] [facility] [employer] ANGIOSEAL, FR6 VIP FR 6 Used *[id number] 10:43 [employer] BLANKET,WARM AIR CCL * Used *[id number] 10:43 [facility] PACK, CCL CUSTOM * Used *[id number] 10:43 [employer] PACER PEN, SKIN DUAL W/ RULER * Used *[id number] BALLOON, 2.5 X 12MM NC [id number] 11:55 [employer] 12MM Used EUPHORA *[id number] 11:40 [employer] BALLOON, 3.0 X 15MM EUPHORA 15MM Used *[id number] 11:49 [employer] STENT, 4.0 22 INTEGRITY 4.0 22 Used *[id number] [id number] 10:46 [employer] MEDICAL 30 THANH INDEFLATOR Used *[id number] 10:43 [employer] MEDICAL SHEATH, FR6.5 PRELUDE 11CM FR 6.5 038ACT Used *1071380 [id number] 10:43 [employer] MEDICAL WIRE, 3MMJ .035 180CM 180CM Used *[id number] 10:43 NAMIC MANIFOLD, 4 PORT * Used *[id number] 11:52 [employer] OMNIPAQUE, 350 MG, 150ML 150ML [id number] Used 11:52 [employer] OMNIPAQUE, 350 MG, 150ML 150ML [id number] Used 10:43 [employer] OMNIPAQUE, 350 MG, 150ML 150ML [id number] Used WIRE, RUNTHROUGH NS FLOPPY -1011 11:27 [employer] 180CM Used .014 180CM *[id number] WIRE, RUNTHROUGH NS FLOPPY 1011 11:29 [employer] 180CM Used .014 180CM *[id number] Equipment Model, Serial, Lot Number and Expiration Data Description Model Number Serial Number Lot Number Expiration Date ANGIOSEAL, FR6 VIP [id number] 04-30-2018 STENT, 4.0 22 INTEGRITY [id number] 06-19-2019 History: Current Medications Medication Dosage/Unit Route Frequency Last Date/Time Taken Beta Gentry Statins (any) ASA PLAVIX History: Allergies Allergy Reaction No Known Allergies History: Risk Factors Family History of Hypertension Dyslipidemia Previous NC Previous Heart Failure Premature CAD Yes Yes Yes No No Prior Valve Prior PCI Prior CABG Surgery No No No Cerebrovascular Peripheral Artery Chronic Lung On Dialysis Diabetes Disease Disease Disease Yes No No No No History: CV Disease Selection Items Known CAD History: Stress Tests Stress or Imaging Studies Performed No History: NC/CV Data Previous Cath Date 09/08/2017 History: Other Current Smoker Packs a Day Years Used Pack Years Yes 1 30 30 Labs Hgb (g/dl) Hct (%) WBC (l/cumm) Platelets (thousands) 11.60-17.00 35.00-51.00 4.00-11.00 150.00-450.00 8.1 24.5 9.5 299 Glucose (mg/dl) BUN (mg/dl) Creatinine (mg/dl) BUN:Creatinine (1:x) 74.00-106.00 7.00-18.00 0.50-1.30 10.00-20.00 92 68 5.5 12.4 Na (meq/l) K (meq/l) 136.00-145.00 3.50-5.10 140 3.8 INR (PTT:PT) 0.90-1.10 1 Troponin I (ng/ml) CPK (u/l) CPK-MB (ng/ML) 0.02-0.05 26.00-308.00 0.50-3.60 28 169 5.4 Medication Medication Total Dose (Bolus/Oral) Medication Total Dosage/Unit 1% XYLOCAINE 20 mL FENTANYL 50 mcg HEPARIN 5000 units NITROGLYCERIN S/L 0.8 mg VERSED 1 mg Medications (Bolus/Oral) Medication Time Given Dosage/Unit Administered By Reason VERSED 09/22/2017 11:22:36 AM 1 mg Garcia Knight Patient arrived on 1 mg VERSED given by Garcia Knight RN via Peripheral IV. Ordered by Roldan Pryor . FENTANYL 09/22/2017 11:23:42 AM 50 mcg Garcia Knight Patient arrived on 50 mcg FENTANYL given by Garcia Knight RN via Peripheral IV. Ordered by Wes Pryor 1% XYLOCAINE 09/22/2017 11:29:46 AM 20 mL Roldan Pryor 20 mL 1% XYLOCAINE given in lab by Roldan Pryor in Right Groin via Subcutaneous. Ordered by Roldan Pryor. HEPARIN 09/22/2017 11:35:26 AM 5000 units Garcia Knigth 5000 units HEPARIN given in lab by Garcia Knight RN in Left Antecubital via Peripheral IV. Ordered by Roldan Pryor. NITROGLYCERIN S/L 09/22/2017 12:01:31 PM 0.4 mg Garcia Knight 0.4 mg NITROGLYCERIN S/L given in lab by Garcia Knight RN via Sublingual. Ordered by Roldan Pryor. NITROGLYCERIN S/L 09/22/2017 12:13:27 PM 0.4 mg Garcia Knight 0.4 mg NITROGLYCERIN S/L given in lab by Garcia Knight RN via Sublingual. Ordered by Roldan Pryor. Medication (Drip) Medication Time Given Dosage/Unit Concentration/Unit Diluent (ml) Solutio n IV Solutions 09/22/2017 10:40:16 AM 0 mL (IV) 500 NaCl .9 Patient arrived on IV Solutions in Right Antecubital via Peripheral IV. Pump/Drip Flow = 20 ml/hr usi ng NaCl .9. KENGREAL BOLUS 09/22/2017 11:37:00 AM 15 mL 15 mL KENGREAL BOLUS given in lab by Garcia Knight RN in Left Antecubital via Peripheral IV. Ordered by Roldan Pryor. KENGREAL DRIP 09/22/2017 11:39:53 AM 4 mcg/kg/min 50 mg 250 NaCl .9 4 mcg/kg/min KENGREAL DRIP given in lab by Garcia Knight RN in Left Antecubital via Peripheral IV. Pu mp/Drip Flow = 120 ml/hr using NaCl .9 with a concentration of 50 mg in 250 ml. Ordered by Roldan Pryor. Initial Case Assessment Cardiovascular HR Rhythm NIBP Chest Pain 68 nsr 143/64 0 Edema Present Skin color Skin None Normal Warm Dry Circulatory - Right Pulses Dorsalis Pedis Femoral 2 2 Scale (0,1,2,3,4,d) Circulatory - Left Pulses Dorsalis Pedis Femoral 2 2 Scale (0,1,2,3,4,d) Neurological State Oriented to time-place- Alert Moves all extremities person Respiration - General Respiration Rate SpO2 (%) (B/min) 15 100 Initial Case Assessment Cardiovascular HR Rhythm NIBP Chest Pain 74 nsr 105/50 0 Edema Present Skin color Skin None Normal Warm Dry Circulatory - Right Pulses Dorsalis Pedis Femoral 2 2 Scale (0,1,2,3,4,d) Circulatory - Left Pulses Dorsalis Pedis Femoral 2 2 Scale (0,1,2,3,4,d) Neurological State Oriented to time-place- Alert Moves all extremities person Respiration - General Respiration Rate SpO2 (%) (B/min) 15 100 Chronological Log Time Study Chronological Log 10:40:08 Patient arrived via Bed. 10:40:08 Patient Name, D.O.B, / Armband Verified By R.N. 10:40:09 Consent signed by the physician and the patient and verified by the Manager Code staff. 10:40:09 Pre-op and post- op instructions given; patient acknowledges understanding of instructions. 10:40:10 Verbal Stimulation=2 Physical Stimulation=2 Airway=2 Respiration=2 TOTAL=8. (0=absent, 1=li mited, 2=present) 10:40:10 Presedation assessment performed by Manager Code RN. 10:40:12 Immediate Presedation assesment performed by physician. 10:40:12 Patient has been NPO for More than 6Hrs. 10:40:13 Skin Breakdown- none per patient 10:40:13 Patient Warmer Placed on the Table. 10:40:14 Christopher Prominences Protected 10:40:16 A # 20 IV was noted in the Forearm (left). Patient c/o pain upon flushing 10:40:16 A # 20 IV was noted in the Antecubital (right). Patient c/o pain upon flushing 10:40:16 Patient arrived on IV Solutions in Right Antecubital via Peripheral IV. Pump/Drip Flow = 20 ml/hr using NaCl .9. 10:40:17 History and physical on the chart or being dictated. Vitals capture started with the following parameters, Patient=Adult, Interval=5 min, Initial Pr xzavqg=779 mmHg, 10:45:36 Deflation Rate=5 mmHg, Cuff placed on Left Arm 10:46:26 HR=72 bpm, YZZM=697/64 mmhg, XjE3=059.0 %, Pain=0, David=10, Cervantes=2 Assessment: Initial Case, HR=68 BPM, Rhythm=nsr, QDXL=028/64 mmhg, Chest Pain=0, Edema=None, Co naldo=Normal, Skin = Warm, Dry Right Pulses: Gagandeep Ped=2, Femoral=2 10:47:18 Left Pulses: Gagandeep Ped=2, Femoral=2 Neurological: State=Alert, Ox3, YAN Respiration: Resp=15 B/min, UdF9=574 % 10:50:49 Reference ECG taken 10:51:23 HR=67 bpm, FSRI=147/67 mmhg, HnX9=033.0 %, Resp=15 B/min, Pain=0, David=10, Cervantes=2 10:56:22 HR=72 bpm, EFUQ=576/73 mmhg, SvI4=598.0 %, Resp=15 B/min, Pain=0, David=10, Cervantes=2 11:01:23 HR=69 bpm, UTVQ=711/63 mmhg, UbG7=085 %, Resp=11 B/min, Pain=0, David=10, Cervantes=2 11:03:32 A # 20 IV was noted in the Antecubital (left). Grade = 0 New IV placed 11:04:46 Bilateral groins prepped with 2% chlorhexidine, and draped after a 3 minute waiting time. 11:06:22 HR=83 bpm, YVYJ=707/69 mmhg, OtN6=995.0 %, Resp=17 B/min, Pain=0, David=10, Cervantes=2 11::22 MD paged 11:: MD responded 11:11:04 Pressure channel 1 zeroed. 11:11:25 HR=67 bpm, QPYE=953/57 mmhg, AkS5=915.0 %, Resp=10 B/min, Pain=0, David=10, Cervantes=2 11:16:20 HR=68 bpm, BGUH=550/63 mmhg, FnG7=003.0 %, Resp=12 B/min, Pain=0, David=10, Cervantes=2 11:21:23 HR=68 bpm, SRAK=603/60 mmhg, VhT7=245.0 %, Resp=13 B/min, Pain=0, David=10, Cervantes=2 11:22:25 MD arrived. 11:22:36 Patient arrived on 1 mg VERSED given by Garcia Knight RN via Peripheral IV. Ordered by Roldan Florez. 11:23:42 Patient arrived on 50 mcg FENTANYL given by Garcia Knight RN via Peripheral IV. Ordered by Roldan Pryor. 11:26:24 HR=68 bpm, JMLG=466/53 mmhg, FrJ2=639.0 %, Resp=13 B/min, Pain=0, David=10, Cervantes=2 Time Out. Correct patient, correct procedure, correct physician, labs, allergies, and equipment verified with geophysical laboratory chief 11:29:05 team present. Fire risk assesment completed (see hard stop sheet for coding). Time Out Conc urred by and individual staff in procedure. 11:29:42 Case Start 11:29:46 20 mL 1% XYLOCAINE given in lab by Roldan Pryor in Right Groin via Subcutaneous. Ordered by Roldan Pryor. 11:29:56 Verbal Stimulation=2 Physical Stimulation=2 Airway=2 Respiration=2 TOTAL=8. (0=absent, 1=li mited, 2=present) 11:31:05 Access site was Right Femoral Artery. 11:31:19 HR=70 bpm, PQGJ=216/58 mmhg, GfB9=664.0 %, Resp=12 B/min, Pain=0, David=10, Cervantes=2 11:31:42 A SHEATH, FR6.5 PRELUDE 11CM FR 6.5 was advanced into the Fem Art (right) using the Percuta neous technique. A XBLAD 3.5 GUIDE CATHETER FR 6 was advanced over a wire. OMNIPAQUE, 350 MG, 150ML 150ML was us ed for 11:34:25 injections. Recorded Pressure: Ao, HR=67, Condition=Condition 1 11:34:40 (Aorta) Ao 90/46/64 11:35:26 5000 units HEPARIN given in lab by Garcia Knight RN in Left Antecubital via Peripheral IV. Ordered by Roldan Pryor. 11:36:16 HR=66 bpm, RYSK=847/58 mmhg, CsH8=539.0 %, Resp=14 B/min, Pain=0, David=10, Cervantes=2 15 mL KENGREAL BOLUS given in lab by Garcia Knight RN in Left Antecubital via Peripheral IV. Or dered by Konstantin, 11:37:00 Roldan. 11:37:28 A WIRE, RUNTHROUGH NS FLOPPY .014 180CM 180CM was inserted via Fem Art (right). 11:38:53 Interventional wire has crossed the lesion 11:38:54 A WIRE, RUNTHROUGH NS FLOPPY .014 180CM 180CM was inserted via Fem Art (right). 11:39:31 Interventional wire has crossed the lesion 4 mcg/kg/min KENGREAL DRIP given in lab by Garcia Knight RN in Left Antecubital via Peripheral IV. Pump/Drip Flow = 11:39:53 120 ml/hr using NaCl .9 with a concentration of 50 mg in 250 ml. Ordered by Roldan Pryor. A BALLOON, 3.0 X 15MM EUPHORA 15MM was inserted over WIRE, RUNTHROUGH NS FLOPPY .014 180CM 180C M via 11:41:08 the LAD Prox. 11:41:19 HR=70 bpm, ASWU=417/58 mmhg, AiA0=695.0 %, Resp=16 B/min, Pain=0, David=10, Cervantes=2 11:41:52 NIBP STAT measurement started. 11:42:31 HR=68 bpm, HWRJ=961/54 mmhg, CwR9=604.0 %, Resp=15 B/min, Pain=0, David=10, Cervantes=2 A BALLOON, 3.0 X 15MM EUPHORA 15MM over a WIRE, RUNTHROUGH NS FLOPPY .014 180CM 180CM in the LA D 11:43:21 Prox was inflated using a 30 THANH INDEFLATOR at 16 thanh for 10 sec. 11:44:21 Balloon Removed. 11:46:18 HR=70 bpm, CRND=237/51 mmhg, RyD5=867.0 %, Resp=13 B/min, Pain=0, David=10, Cervantes=2 A BALLOON, 3.0 X 15MM EUPHORA 15MM was inserted over WIRE, RUNTHROUGH NS FLOPPY .014 180CM 180C M via 11:46:36 the DIAG1 Prox. A BALLOON, 3.0 X 15MM EUPHORA 15MM over a WIRE, RUNTHROUGH NS FLOPPY .014 180CM 180CM in the DI AG1 11:47:00 Prox was inflated using a 30 THANH INDEFLATOR at 14 thanh for 10 sec. 11:47:43 Balloon Removed. 11:49:46 Wire removed An STENT, 4.0 22 INTEGRITY 4.0 22 Bare Metal Stent was inserted through a XBLAD 3.[address] FR 6 over 11:49:52 a WIRE, RUNTHROUGH NS FLOPPY .014 180CM 180CM. A STENT, 4.0 22 INTEGRITY 4.0 22 was deployed using a 30 THANH INDEFLATOR at 15 atmospheres for 1 0 seconds in 11:50:42 the LAD Prox. 11:51:21 HR=66 bpm, VZKV=690/51 mmhg, LjW1=201.0 %, Resp=12 B/min, Pain=0, David=10, Cervantes=2 11:53:48 Delivery device removed 11:53:55 A WIRE, RUNTHROUGH NS FLOPPY .014 180CM 180CM was inserted via Fem Art (right). 11:54:33 Interventional wire has crossed the lesion A BALLOON, 2.5 X 12MM NC EUPHORA 12MM was inserted over WIRE, RUNTHROUGH NS FLOPPY .014 180CM 1 80CM 11:54:47 via the LAD Prox. 11:56:18 HR=69 bpm, PFNP=823/57 mmhg, TrJ6=104.0 %, Resp=13 B/min, Pain=0, David=10, Cervantes=2 A BALLOON, 2.5 X 12MM NC EUPHORA 12MM over a WIRE, RUNTHROUGH NS FLOPPY .014 180CM 180CM in the 11:57:17 DIAG1 Prox was inflated using a 30 THANH INDEFLATOR at 12 thanh for 30 sec. 11:58:42 Balloon Removed. 11:59:46 Wires removed 12:01:02 Catheter was removed 12:01:21 HR=73 bpm, ZTDE=483/51 mmhg, YsN5=376.0 %, Resp=15 B/min, Pain=5, David=10, Cervantes=2 12:01:31 0.4 mg NITROGLYCERIN S/L given in lab by Garcia Knight, RN via Sublingual. Ordered by Roldan Pryor. 12:03:02 Activated Clotting Time Drawn 12:06:22 HR=75 bpm, KURC=347/53 mmhg, AoS7=248.0 %, Resp=13 B/min, Pain=5, Davdi=10, Cervantes=2 12:07:56 ACT (Normal Range 90-180) = 237 A XBLAD 3.5 GUIDE CATHETER FR 6 was advanced over a wire. OMNIPAQUE, 350 MG, 150ML 150ML was us ed for 12:09:32 injections. 12:10:43 Catheter was removed 12:11:19 HR=73 bpm, GWAO=462/50 mmhg, OrS3=236.0 %, Resp=18 B/min, Pain=2, David=10, Cervantes=2 12:11:29 ANGIOSEAL, FR6 VIP FR 6 placement in the Fem Art (right) 12:12:49 Case End (Physician broke scrub) Assessment: Initial Case, HR=74 BPM, Rhythm=nsr, KSOI=960/50 mmhg, Chest Pain=0, Edema=None, Co naldo=Normal, Skin = Warm, Dry Right Pulses: Gagandeep Ped=2, Femoral=2 12:12:53 Left Pulses: Gagandeep Ped=2, Femoral=2 Neurological: State=Alert, Ox3, YAN Respiration: Resp=15 B/min, NqZ3=287 % 12:13:07 No case complications noted. 12:13:08 Cine recording checked. 12:13:11 Bedside Report will be given. 12:13:15 Verbal Stimulation=2 Physical Stimulation=2 Airway=2 Respiration=2 TOTAL=8. (0=absent, 1=l imited, 2=present) 12:13:20 A Left Heart Cath was performed. 12:13:27 0.4 mg NITROGLYCERIN S/L given in lab by Garcia Knight, RN via Sublingual. Ordered by Roldan Pryor. 12:16:18 HR=74 bpm, NIBP=91/49 mmhg, SpO2=99.0 %, Resp=10 B/min, Pain=0, David=10, Cervantes=2 Vitals capture started with the following parameters, Patient=Adult, Interval=5 min, Initial P ujdgyju=210 mmHg, 12:16:28 Deflation Rate=5 mmHg, Cuff placed on Left Arm 12:16:57 HR=73 bpm, NIBP=95/48 mmhg, RmF1=353.0 %, Resp=12 B/min, Pain=0, David=10, Cervantes=2 12:22:04 ELUD=099/42 mmhg, Pain=0, David=10, Cervantes=2 12:24:25 Vitals capture stopped. 12:24:26 Patient moved to [facility] End Study - Contrast Media Used In Study Contrast Total Opened (mL) Total Used (mL) Total Wasted (mL) Omnipaque 225 225 0 End Study - Maximum Contrast Load Max Contrast Load (mL) 90.9 End Study - Radiation Exposure Fluoro Time (minutes) 7.4 End Study - Patient Disposition Complications Transferred To Interventional Outcome No Telemetry Bed successful
[2017-09-22] MEDS ORDERED: LORazepam 2 MG/ML VIAL IV PUSH PRN (12:30)
[2017-09-22] MEDS ORDERED: MISC INFORMATION XX ONE (12:30)
[2017-09-22] MEDS ORDERED: CANGRELOR INJ 50,000 MCG in SODIUM CHLOR 0.9% 250 ML INJ 250 ML IV ONE (12:30)
[2017-09-22] MEDS ORDERED: LIDOCAINE HCL 1% 50 ML VIAL INFIL PRN (12:30)
[2017-09-22] MEDS ORDERED: IOHEXOL 350 MG/ML 100 ML BTL (for Cath Lab) OTHER ONE (12:31)
[2017-09-22] MEDS ORDERED: IOHEXOL 350 MG/ML 50 ML BTL (for Cath Lab) OTHER ONE (12:31)
--- NOTE | 2017-09-22 12:49 | MA ---
cc: Roldan Pryor MD DATE: 09/22/2017 PROCEDURES PERFORMED: 1. Fluoroscopy with interpretation. 2. Coronary angiography. 3. Percutaneous coronary intervention with bare-metal stent to the left anterior descending coronary artery. 4. Percutaneous transluminal coronary angioplasty of the first diagonal branch. METHOD: The risks, benefits and alternatives were discussed with the patient. The patient understood and consented to the procedure. The patient was brought into the catheterization lab, placed on the catheterization table. The right groin was prepped and draped in sterile fashion. The right groin was anesthetized with 2% lidocaine. Right common femoral artery was cannulated and a 6-Ivorian, 7-cm sheath was placed without difficulty. CORONARY ANGIOGRAPHY: 1. Left main coronary has mild luminal irregularities. 2. Left anterior descending coronary artery has an 805 proximal stenosis at the bifurcation of a diagonal branch. The remainder of the vessel has mild luminal irregularities. The first diagonal branch has mild luminal irregularities proximally. 3. Left circumflex has mild luminal irregularities. 4. Right coronary artery is occluded and collateralized left to right. PERCUTANEOUS CORONARY INTERVENTION A 6-Ivorian XB-LAD 3.5 guide catheter was engaged in the left main coronary artery. A 0.014-inch, 180 cm Terumo Runthrough wire was navigated down the distal left anterior descending coronary branch. A second 0.014-inch, 180 cm Terumo Runthrough wire was navigated down the first diagonal branch. Heparin and Cangrelor was administered throughout the entire procedure to maintain appropriate anticoagulation. A 3.0 x 15 mm RX Euphora balloon was then deployed in the left anterior descending coronary artery and then moved to the other wire and deployed in the first diagonal branch ostium just to avoid any potential plaque shifting. Repeat angiography showed still severe residual stenosis. A 4.0 x 22 mm Integrity bare-metal stent was advanced into the proximal left anterior descending coronary extending across into the mid and across the diagonal branch. Diagonal wire was removed. The stent was deployed. The diagonal wire was then put through the side strut, down the diagonal branch and a 2.5 x 12 mm RX Euphora NC balloon was then deployed in the ostium of the diagonal branch. Repeat angiography showed no residual stenosis, KOFI-3 flow. Both wires were removed. Groin was closed with a 6-Ivorian Angio-Seal. CONCLUSIONS: 1. Severe proximal left anterior descending coronary bifurcation stenosis. 2. Occluded right coronary artery. 3. Successful percutaneous coronary intervention with a bare-metal stent to the proximal left anterior descending coronary artery. 4. Successful percutaneous transluminal angioplasty of the first diagonal branch. PLAN: The patient will be continued on Plavix therapy. We will monitor closely for any post-procedure complications and/or bleeding complications. The patient will have dialysis. Hopefully, the patient will be discharged tomorrow. The patient is to have followup outpatient scheduling for consideration of transcatheter aortic valve replacement upon full recovery. MD OMID Velazquez/SB , 12:20 PM , 12:47 PM
[2017-09-22] MEDS ORDERED: NITROGLYCERIN 400 MCG/SPRAY 4.9 GM BOTTLE SL ONE (13:44)
[2017-09-22] MEDS ORDERED: HEPARIN SODIUM - IV 10,000 UNITS/10 ML VIAL ONE (13:44)
--- NOTE | 2017-09-22 14:24 | HHI.NPPN ---
Subjective History of Present Illness 72-year-old white male with history of hypertension, chronic kidney disease approaching ESRD who developed chest pain and shortness of breath Additional Remarks No acute complaints CAD LAD stent Review of Systems General Constitutional: Fatigue Objective Data Data Vital Signs Date Time Temp Pulse Resp B/P (MAP) Pulse Ox O2 Delivery O2 Flow Rate FiO2 09/22/17 11:00 66 09/22/17 10:30 66 09/22/17 10:00 62 09/22/17 09:00 60 09/22/17 08:00 98.0 76 20 160/102 (121) 99 09/22/17 08:00 60 09/22/17 08:00 99 Room Air 09/22/17 07:49 98 21 09/22/17 07:00 60 09/22/17 06:00 66 09/22/17 03:52 62 09/22/17 03:23 66 09/22/17 03:23 65 16 115/55 (75) 100 09/22/17 03:00 64 09/22/17 02:03 66 09/22/17 02:00 66 09/22/17 02:00 66 09/22/17 01:13 66 09/22/17 01:00 66 09/22/17 01:00 70 16 110/55 99 09/22/17 00:30 98.3 73 16 123/64 (83) 100 09/22/17 00:20 97.9 71 16 110/53 99 09/22/17 00:00 70 09/21/17 23:50 98.3 73 16 123/64 100 09/21/17 23:00 70 09/21/17 22:00 68 09/21/17 20:31 74 09/21/17 20:31 Room Air 21 09/21/17 20:30 97.4 73 18 129/66 (87) 100 09/21/17 20:00 72 09/21/17 19:56 21 09/21/17 19:00 74 09/21/17 18:00 74 09/21/17 17:00 79 09/21/17 16:00 76 09/21/17 15:00 97.6 76 16 134/68 (90) 99 09/21/17 15:00 74 -: 09/22/17 0924 09/21/17 0527 Physical Exam General Appearance: Well Developed, Well Nourished Pulmonary Resp Exam: Crackles, Decreased Bases Cardiology CV Exam: Regular, Normal Sinus Rhythm, Murmur Gastrointestinal/Abdomen GI Exam: Soft, Non-Tender, Bowel Sounds Present Extremeties Extremities Exam: Trace Edema Neurologic Neuro Exam: Alert, Awake, Oriented Assessment/Plan Problem List: (1) Acute renal failure ICD Codes: N17.9 - Acute kidney failure, unspecified Plan: Continue HD MWF. Next HD today Heart catheterization with severe two-vessel coronary artery disease: LAD 80% and right coronary artery total occlusion severely AV stenosis TAVR and coronary stent stent done today LAD Angioplasty 1 st diagonal Continue supportive care Permcath in place repeat colonoscopy polypectomy done no obvious source of bleeding Needs outpatient dialysis setup (2) CKD (chronic kidney disease) stage 4, GFR 15-29 ml/min ICD Codes: N18.4 - Chronic kidney disease, stage 4 (severe) Plan: Patient may have progress to stage V (3) GI bleed ICD Codes: K92.2 - Gastrointestinal hemorrhage, unspecified Status: Acute Plan: GI following. (4) Anemia ICD Codes: D64.9 - Anemia Status: Acute Plan: Status post blood transfusion (5) ACS (acute coronary syndrome) ICD Codes: I24.9 - Acute ischemic heart disease, unspecified Status: Acute Plan: Cardiology following. s/p Cath. Has CAD and . (6) Hypertension ICD Codes: I10 - Essential (primary) hypertension Plan: Continue to monitor Problem Qualifiers (1) GI bleed: Qualified Codes: K92.2 - Gastrointestinal hemorrhage, unspecified Gaurav Shah MD Sep 22, 2017 14:24
[2017-09-22] MEDS: EPOETIN ALFA 10,000 UNITS/ML VIAL IV PUSH PRN (19:00)
[2017-09-22] MEDS: GENTAMICIN SULFATE 20 MG/2 ML VIAL OTHER PRN (19:00)
[2017-09-22] MEDS: HEPARIN SODIUM - IV 10,000 UNITS/10 ML VIAL PRN (19:00)
[2017-09-22] MEDS: ATORVASTATIN 80 MG TAB PO SCH (21:00)
[2017-09-22] MEDS: SODIUM CHLOR 0.9% 1000 ML INJ 1,000 ML IV SCH (23:21)
[2017-09-23] VITALS (30 sets, daily range): BP systolic 109–143; BP diastolic 54–90; PULSE 66–99; RESP 16–20; TEMP 97.7–98.6; O2SAT 95–100
[2017-09-23] MEDS: CHLORHEXIDINE GLUCONATE 2 % 1 PACK (2 CLOTHS) TOP SCH (04:00)
[2017-09-23 06:35] LABS: AUTOMATED NEUTROPHIL # 7.7 TH/MM3 (1.8-7.7); BASOPHIL # 0.1 TH/MM3 (0-0.2); BASOPHIL % 0.6 % (0.0-2.0); EOSINOPHIL # 0.2 TH/MM3 (0-0.4); EOSINOPHIL % 1.5 % (0.0-4.0); HEMOGLOBIN 7.9 GM/DL (13.0-17.0); LYMPH % 11.7 % (9.0-44.0); LYMPHOCYTE # 1.2 TH/MM3 (1.0-4.8); MEAN CELL VOLUME 92.1 FL (80.0-100.0); MEAN CORPUSCULAR HEMOGLOBIN 30.2 PG (27.0-34.0); MEAN CORPUSCULAR HGB CONC 32.8 % (32.0-36.0); MEAN PLATELET VOLUME 8.6 FL (7.0-11.0); MONO % 11.8 % (0.0-8.0); MONOCYTE # 1.2 TH/MM3 (0-0.9); NEUT % 74.4 % (16.0-70.0); PLATELET COUNT 309 TH/MM3 (150-450); RED CELL DISTRIBUTION WIDTH 24.1 % (11.6-17.2); WHITE BLOOD COUNT 10.3 TH/MM3 (4.0-11.0)
[2017-09-23 07:14] LABS: BICARBONATE 27.9 MEQ/L (21.0-32.0); CALCIUM 8.5 MG/DL (8.5-10.1); CHOLESTEROL/ HDL RATIO 3.34 RATIO; CREATININE 4.12 MG/DL (0.60-1.30); HDL CHOLESTEROL 26.6 MG/DL (40.0-60.0); MAGNESIUM 2.6 MG/DL (1.5-2.5)
--- NOTE | 2017-09-23 07:48 | PD.CARD.PN ---
Subjective Subjective Remarks Doing well post procedurally. No chest pain. No shortness of breath at rest, but has been having shortness of breath with exertion. Patient reports he is awaiting outpatient dialysis to be set up. Objective Medications Current Medications Medications (Trade) Dose Ordered Sig/Marylou Route Start Time Stop Time Status Last Admin Sodium Chloride 1,000 ml @ 30 mls/hr Q24H IV 09/03/17 23:21 09/21/17 23:41 (NS Flush) 2 ml UNSCH PRN IV FLUSH 09/03/17 23:30 (NS Flush) 2 ml BID IV FLUSH 09/04/17 09:00 09/22/17 21:00 (Tylenol) 650 mg Q6H PRN PO 09/03/17 23:30 (Morphine Inj) 2 mg Q2H PRN IV PUSH 09/03/17 23:30 (Zofran Odt) 4 mg Q6H PRN PO 09/03/17 23:30 (Duoneb Neb) 1 ampule Q2HR NEB PRN INH 09/03/17 23:30 09/04/17 12:14 ([facility] [place] [facility] Information) 1 Q361D XX 09/03/17 23:30 09/03/17 23:30 (Chlorhexidine 2% Cloth) 3 pack Taper DAILY@04 TOP 09/04/17 04:00 08/31/18 03:59 09/09/17 03:57 (Chlorhexidine 2% Cloth) 3 pack UNSCH PRN TOP 09/03/17 23:30 (Sylvie-Colace) 1 tab BID PO 09/04/17 09:00 09/22/17 21:00 (Milk Of Magnesia Liq) 30 ml Q12H PRN PO 09/03/17 23:30 (Senokot) 17.2 mg Q12H PRN PO 09/03/17 23:30 (Dulcolax Supp) 10 mg DAILY PRN RECTAL 09/03/17 23:30 (Lactulose Liq) 30 ml DAILY PRN PO 09/03/17 23:30 (Norvasc) 10 mg DAILY PO 09/04/17 09:00 09/22/17 08:46 (Lipitor) 80 mg HS PO 09/04/17 21:00 09/22/17 21:00 (Vitamin D3) 1,000 units DAILY PO 09/04/17 09:00 09/22/17 08:46 (Toprol Xl) 50 mg DAILY PO 09/04/17 09:00 09/22/17 08:47 (Ecotrin Ec) 81 mg DAILY PO 09/04/17 09:00 09/22/17 08:46 Sodium Chloride 1,000 ml @ 0 mls/hr Q0M PRN OTHER 09/05/17 10:20 09/22/17 19:00 (Heparin Inj) 8,000 units UNSCH PRN IV FLUSH 09/05/17 10:30 Sodium Chloride 1,000 ml @ 200 mls/hr Q5H PRN IV 09/05/17 10:20 Sodium Chloride 1,000 ml @ 0 mls/hr Q0M PRN OTHER 09/05/17 10:20 (Mannitol Inj) 12.5 gm UNSCH PRN IV 09/05/17 10:30 Albumin Human 100 ml @ 60 mls/hr UNSCH PRN IV 09/05/17 10:30 09/10/17 09:17 (NS Flush) 5 ml UNSCH PRN IV FLUSH 09/05/17 10:30 (Heparin Inj) UNSCH PRN .XX 09/05/17 10:30 09/22/17 19:00 (Gentamicin Inj) 20 mg UNSCH PRN OTHER 09/05/17 10:30 09/22/17 19:00 (Zofran Inj) 4 mg UNSCH PRN IV PUSH 09/05/17 10:30 (Tylenol) 650 mg UNSCH PRN PO 09/05/17 10:30 09/21/17 23:40 (Benadryl) 25 mg UNSCH PRN PO 09/05/17 10:30 09/21/17 23:40 (Nitrostat Sl) 0.4 mg UNSCH PRN SL 09/05/17 10:30 (Catapres) 0.1 mg UNSCH PRN PO 09/05/17 10:30 (Gelfoam 12 Mm/7 Mm Top) 1 foam UNSCH PRN TOP 09/05/17 10:30 (Protonix) 40 mg DAILY PO 09/06/17 09:00 09/22/17 08:48 (Vitamin B1) 100 mg DAILY PO 09/05/17 16:30 09/22/17 08:46 (Folate) 1 mg DAILY PO 09/06/17 09:00 09/22/17 08:46 (Theragran) 1 tab DAILY PO 09/06/17 09:00 09/22/17 08:46 (Epogen Inj) 10,000 units UNSCH PRN IV PUSH 09/06/17 12:15 09/22/17 19:00 (Lasix) 40 mg DAILY PO 09/09/17 09:00 09/22/17 08:46 (Cordarone) 200 mg DAILY PO 09/10/17 09:00 09/22/17 08:46 (Plavix) 75 mg DAILY PO 09/17/17 09:00 09/22/17 08:46 (Ativan Inj) 0.5 mg UNSCH PRN IV PUSH 09/22/17 12:30 09/23/17 12:29 (Xylocaine 1% Inj (50 ml)) 10 ml UNSCH PRN INFIL 09/22/17 12:30 09/23/17 12:29 Vital Signs / I&O Vital Signs Date Time Temp Pulse Resp B/P (MAP) Pulse Ox O2 Delivery O2 Flow Rate FiO2 09/23/17 06:00 75 09/23/17 05:00 75 09/23/17 04:00 80 09/23/17 03:53 98.4 80 16 109/54 (72) 99 09/23/17 03:00 85 09/23/17 02:00 78 09/23/17 01:00 74 09/23/17 00:00 80 09/22/17 23:05 98.5 80 18 112/54 (73) 99 09/22/17 23:00 77 09/22/17 22:00 80 09/22/17 21:00 92 09/22/17 20:36 99 Room Air 09/22/17 20:36 98.2 77 18 113/58 (76) 99 09/22/17 20:00 78 09/22/17 19:00 77 09/22/17 18:00 68 09/22/17 17:00 64 09/22/17 16:00 72 09/22/17 16:00 70 20 129/70 (89) 94 09/22/17 15:00 66 09/22/17 14:00 62 09/22/17 13:00 62 09/22/17 12:30 66 09/22/17 12:30 97.5 73 20 120/70 (87) 100 09/22/17 10:30 66 09/22/17 10:00 62 09/22/17 09:00 60 09/22/17 08:00 98.0 76 20 160/102 (121) 99 09/22/17 08:00 60 09/22/17 08:00 99 Room Air 09/22/17 07:49 98 21 I/O 09/22/17 09/22/17 09/22/17 09/23/17 09/23/17 09/23/17 07:00 15:00 23:00 07:00 15:00 23:00 Intake Total 1290 ml 720 ml 520 ml Output Total 75 ml 3450 ml Balance 1215 ml -2730 ml 520 ml Intake Oral 480 ml 720 ml 520 ml Packed Cells 400 ml Blood Product IV Normal Saline Flush 410 ml Output Urine Total 75 ml 1450 ml Hemodialysis 2000 ml Physical Exam GENERAL: Well-developed well-nourished. In no acute distress. NECK: No carotid bruits. No JVD. CARDIOVASCULAR: Regular rate and rhythm. 3/6 systolic ejection murmur appreciated. Right groin access site with some ecchymosis, but no swelling and pulse intact. RESPIRATORY: No accessory muscle use. Clear to auscultation. Breath sounds equal bilaterally. MUSCULOSKELETAL: No clubbing or cyanosis. No edema. NEUROLOGICAL: Awake and alert. Normal speech. Laboratory Laboratory Tests Test 09/22/17 09:24 09/23/17 05:28 White Blood Count 9.2 TH/MM3 10.3 TH/MM3 Red Blood Count 2.98 MIL/MM3 2.60 MIL/MM3 Hemoglobin 8.9 GM/DL 7.9 GM/DL Hematocrit 27.0 % 24.0 % Mean Corpuscular Volume 90.7 FL 92.1 FL Mean Corpuscular Hemoglobin 29.8 PG 30.2 PG Mean Corpuscular Hemoglobin Concent 32.8 % 32.8 % Red Cell Distribution Width 22.5 % 24.1 % Platelet Count 321 TH/MM3 309 TH/MM3 Mean Platelet Volume 8.7 FL 8.6 FL Neutrophils (%) (Auto) 74.4 % Lymphocytes (%) (Auto) 11.7 % Monocytes (%) (Auto) 11.8 % Eosinophils (%) (Auto) 1.5 % Basophils (%) (Auto) 0.6 % Neutrophils # (Auto) 7.7 TH/MM3 Lymphocytes # (Auto) 1.2 TH/MM3 Monocytes # (Auto) 1.2 TH/MM3 Eosinophils # (Auto) 0.2 TH/MM3 Basophils # (Auto) 0.1 TH/MM3 CBC Comment DIFF FINAL Differential Comment Blood Urea Nitrogen 50 MG/DL Creatinine 4.12 MG/DL Random Glucose 95 MG/DL Calcium Level 8.5 MG/DL Magnesium Level 2.6 MG/DL Sodium Level 144 MEQ/L Potassium Level 3.6 MEQ/L Chloride Level 105 MEQ/L Carbon Dioxide Level 27.9 MEQ/L Anion Gap 11 MEQ/L Estimat Glomerular Filtration Rate 14 ML/MIN Total Creatine Kinase 61 U/L Triglycerides Level 254 MG/DL Cholesterol Level 89 MG/DL LDL Cholesterol 12 MG/DL HDL Cholesterol 26.6 MG/DL Cholesterol/HDL Ratio 3.34 RATIO Imaging Last Impressions Chest CTA 09/16/17 0000 Signed Impressions: CONCLUSION: 1. Size measurements of the aortic root and tubular portion of the ascending a aide are listed above. The iliac circulation and the abdominal aorta are adequa te in caliber for delivery of the TAVR device. 2. There is extensive calcification of the valvular leaflets. There is only mi nimal calcification of the aortic annulus. There is mild cardiomegaly. 3. COPD changes within the pulmonary parenchyma. GI Bleed Scan Nuclear Medicine 09/13/17 0000 Signed Impressions: CONCLUSION: 1. No focal abnormality to suggest active hemorrhage. Catheter Placement X-Ray 09/12/17 0000 Signed Impressions: CONCLUSION: 1. Uncomplicated PermaCath placement as above. Chest X-Ray 09/04/17 0600 Signed Impressions: CONCLUSION: Cardiomegaly with minimal basilar atelectasis. No significant change from September 03. Assessment and Plan Problem List: (1) Non-ST elevation NC (NSTEMI) ICD Codes: I21.4 - Non-ST elevation NC (NSTEMI) Status: Acute (2) Paroxysmal atrial fibrillation ICD Codes: I48.0 - Paroxysmal atrial fibrillation Status: Acute (3) Aortic stenosis ICD Codes: I35.0 - Nonrheumatic aortic (valve) stenosis Status: Chronic Assessment and Plan severe aortic stenosis - TAVR workup (TAVR will not be done this hospitalization) NSTEMI - severe 2 Vz CAD. Performed high risk PCI to LAD/diagonal branch bifurcation; occluded RCA. Aspirin, Plavix, statin. ESRD - on HD anemia - GI cleared him for anticoagulation. May still need capsule endoscopy as outpatient. monitor Hb and evidence for bleed on antiplatelet therapy Paroxysmal atrial fibrillation - In NSR on amiodarone. Continue metoprolol. Discharge planning. Discussed Condition With Patient, Dr. Pryor Problem Qualifiers (1) Aortic stenosis: Qualified Codes: I35.0 - Nonrheumatic aortic (valve) stenosis Jordon Irving Sep 23, 2017 07:48
[2017-09-23] MEDS: PANTOPRAZOLE SOD 40 MG DELAYED RELEASE TAB PO SCH (08:34)
[2017-09-23] MEDS: MULTIVITAMIN TAB PO SCH (08:34)
[2017-09-23] MEDS: THIAMINE HCL 100 MG TAB PO SCH (08:34)
[2017-09-23] MEDS: CLOPIDOGREL 75 MG TAB PO SCH (08:34)
[2017-09-23] MEDS: AMIODARONE 200 MG TAB PO SCH (08:34)
[2017-09-23] MEDS: ASPIRIN EC 81 MG TABEC PO SCH (08:34)
[2017-09-23] MEDS: FOLIC ACID 1 MG TAB PO SCH (08:34)
[2017-09-23] MEDS: CHOLECALCIFEROL (VIT D3) 1000 UNIT TAB PO SCH (08:35)
[2017-09-23] MEDS: DOCUSATE SODIUM 50 MG/SENNA 8.6 MG TAB PO SCH ×2 (08:38→21:09)
[2017-09-23] MEDS: METOPROLOL SUCCINATE 50 MG EXTENDED RELEASE TAB PO SCH (09:00)
[2017-09-23] MEDS: FUROSEMIDE 40 MG TAB PO SCH (09:17)
[2017-09-23] MEDS: SODIUM CHLORIDE 0.9% FLUSH 10 ML FLUSH IV FLUSH SCH ×2 (09:17→21:00)
--- NOTE | 2017-09-23 13:56 | HHI.PR ---
Subjective Remarks The patient was a little upset that his hemoglobin was 7.9 and that he was a little dizzy with ambulation. He said he wanted to talk to a casework supervisor as soon as possible. He was a little upset to hear that dialysis has taken this long to set up finally. Discussed with nursing. Objective Vitals Vital Signs Date Time Temp Pulse Resp B/P (MAP) Pulse Ox O2 Delivery O2 Flow Rate FiO2 09/23/17 11:41 98.2 99 20 143/89 (107) 95 09/23/17 09:00 70 09/23/17 08:00 99 Room Air 09/23/17 08:00 98.6 82 18 118/62 (80) 100 09/23/17 08:00 82 09/23/17 07:00 66 09/23/17 06:00 75 09/23/17 05:00 75 09/23/17 04:00 80 09/23/17 03:53 98.4 80 16 109/54 (72) 99 09/23/17 03:00 85 09/23/17 02:00 78 09/23/17 01:00 74 09/23/17 00:00 80 09/22/17 23:05 98.5 80 18 112/54 (73) 99 09/22/17 23:00 77 09/22/17 22:00 80 09/22/17 21:00 92 09/22/17 20:36 99 Room Air 09/22/17 20:36 98.2 77 18 113/58 (76) 99 09/22/17 20:00 78 09/22/17 19:00 77 09/22/17 18:00 68 09/22/17 17:00 64 09/22/17 16:00 72 09/22/17 16:00 70 20 129/70 (89) 94 09/22/17 15:00 66 09/22/17 14:00 62 I/O 09/22/17 09/22/17 09/22/17 09/23/17 09/23/17 09/23/17 07:00 15:00 23:00 07:00 15:00 23:00 Intake Total 1290 ml 720 ml 520 ml Output Total 75 ml 3450 ml Balance 1215 ml -2730 ml 520 ml Intake Oral 480 ml 720 ml 520 ml Packed Cells 400 ml Blood Product IV Normal Saline Flush 410 ml Output Urine Total 75 ml 1450 ml Hemodialysis 2000 ml Result Diagram: 09/23/1752709/23/17527 Imaging Last Impressions Chest CTA 09/16/17 0000 Signed Impressions: CONCLUSION: 1. Size measurements of the aortic root and tubular portion of the ascending a aide are listed above. The iliac circulation and the abdominal aorta are adequa te in caliber for delivery of the TAVR device. 2. There is extensive calcification of the valvular leaflets. There is only mi nimal calcification of the aortic annulus. There is mild cardiomegaly. 3. COPD changes within the pulmonary parenchyma. GI Bleed Scan Nuclear Medicine 09/13/17 0000 Signed Impressions: CONCLUSION: 1. No focal abnormality to suggest active hemorrhage. Catheter Placement X-Ray 09/12/17 0000 Signed Impressions: CONCLUSION: 1. Uncomplicated PermaCath placement as above. Chest X-Ray 09/04/17 0600 Signed Impressions: CONCLUSION: Cardiomegaly with minimal basilar atelectasis. No significant change from September 03. Objective Remarks GENERAL: This is a well-nourished, well-developed patient, in no apparent distress. CARDIOVASCULAR: Normal rate and regular rhythm. Harsh OMID murmur noted. RESPIRATORY: Good respiratory efforts. Diminished breath sounds at the bases. Otherwise breath sounds equal and clear to auscultation bilaterally. GASTROINTESTINAL: Abdomen soft, non-tender, non-distended. Normal active bowel sounds. MUSCULOSKELETAL: Extremities without cyanosis, or edema. NEURO: Alert & Oriented x4 to person, place, time, situation. Moves all ext x4 PSYCH: Grumpy. Procedures Cardiac catheterization A/P Assessment and Plan NSTEMI/CAD/Paroxysmal a-fib/Aortic Stenosis/HTN The pt presented with CP which has resolved. CT surgery consult appreciated. Cardiology performed high risk PCI to LAD/diagonal branch bifurcation 09/23. - TAVR planned in the future per cardiology. - Continue Norvasc, metoprolol, amiodarone, ASA and Plavix. - Follow on telemetry. Severe Anemia/ Recurrent GI bleed Bleeding scan negative. Colonoscopy revealed diverticulosis, polyp, and hemorrhoids but no active bleeding. S/P transfusion. - follow CBC and transfuse as needed. - Continue iron supplement. - Continue Epogen with dialysis. End-stage renal disease Nephrology consult appreciated. - Continue dialysis as scheduled. Will need outpt dialysis set up. Case management following. Has a chair time of Friday. - Replace K+ as needed. Stable. PPx: SCDs Discharge Planning Anticipate d/c after dialysis tomorrow John Sherman DO Sep 23, 2017 13:56
--- NOTE | 2017-09-23 15:24 | HHI.NPPN ---
Subjective History of Present Illness 72-year-old white male with history of hypertension, chronic kidney disease approaching ESRD who developed chest pain and shortness of breath Additional Remarks No acute complaints CAD LAD stent Review of Systems General Constitutional: Fatigue Objective Data Data Vital Signs Date Time Temp Pulse Resp B/P (MAP) Pulse Ox O2 Delivery O2 Flow Rate FiO2 09/23/17 11:41 98.2 99 20 143/89 (107) 95 09/23/17 09:00 70 09/23/17 08:00 99 Room Air 09/23/17 08:00 98.6 82 18 118/62 (80) 100 09/23/17 08:00 82 09/23/17 07:00 66 09/23/17 06:00 75 09/23/17 05:00 75 09/23/17 04:00 80 09/23/17 03:53 98.4 80 16 109/54 (72) 99 09/23/17 03:00 85 09/23/17 02:00 78 09/23/17 01:00 74 09/23/17 00:00 80 09/22/17 23:05 98.5 80 18 112/54 (73) 99 09/22/17 23:00 77 09/22/17 22:00 80 09/22/17 21:00 92 09/22/17 20:36 99 Room Air 09/22/17 20:36 98.2 77 18 113/58 (76) 99 09/22/17 20:00 78 09/22/17 19:00 77 09/22/17 18:00 68 09/22/17 17:00 64 09/22/17 16:00 72 09/22/17 16:00 70 20 129/70 (89) 94 -: 09/23/17 0528 09/23/17 0528 Physical Exam General Appearance: Well Developed, Well Nourished Pulmonary Resp Exam: Crackles, Decreased Bases Cardiology CV Exam: Regular, Normal Sinus Rhythm, Murmur Gastrointestinal/Abdomen GI Exam: Soft, Non-Tender, Bowel Sounds Present Extremeties Extremities Exam: Trace Edema Neurologic Neuro Exam: Alert, Awake, Oriented Assessment/Plan Problem List: (1) Acute renal failure ICD Codes: N17.9 - Acute kidney failure, unspecified Plan: Continue HD MWF. Next HD wed Heart catheterization with severe two-vessel coronary artery disease: LAD 80% and right coronary artery total occlusion severely AV stenosis TAVR and coronary stent stent done LAD Angioplasty 1 st diagonal Continue supportive care Permcath in place repeat colonoscopy polypectomy done no obvious source of bleeding outpatient dialysis setup H/H Low give PRBC Venofer in am (2) CKD (chronic kidney disease) stage 4, GFR 15-29 ml/min ICD Codes: N18.4 - Chronic kidney disease, stage 4 (severe) Plan: Patient may have progress to stage V (3) GI bleed ICD Codes: K92.2 - Gastrointestinal hemorrhage, unspecified Status: Acute Plan: GI following. (4) Anemia ICD Codes: D64.9 - Anemia Status: Acute Plan: Status post blood transfusion (5) ACS (acute coronary syndrome) ICD Codes: I24.9 - Acute ischemic heart disease, unspecified Status: Acute Plan: Cardiology following. s/p Cath. Has CAD and . (6) Hypertension ICD Codes: I10 - Essential (primary) hypertension Plan: Continue to monitor Problem Qualifiers (1) GI bleed: Qualified Codes: K92.2 - Gastrointestinal hemorrhage, unspecified Gaurav Shah MD Sep 23, 2017 15:24
[2017-09-23] MEDS: ATORVASTATIN 80 MG TAB PO SCH (21:09)
[2017-09-23] MEDS: SODIUM CHLOR 0.9% 1000 ML INJ 1,000 ML IV SCH (23:21)
[2017-09-24] VITALS (16 sets, daily range): BP systolic 129–141; BP diastolic 66–104; PULSE 69–84; RESP 16–22; TEMP 97.3–98.6; O2SAT 98–100
[2017-09-24] MEDS: CHLORHEXIDINE GLUCONATE 2 % 1 PACK (2 CLOTHS) TOP SCH (04:00)
[2017-09-24 06:24] LABS: HEMATOCRIT 25.1 % (39.0-51.0); HEMOGLOBIN 8.5 GM/DL (13.0-17.0); MEAN CELL VOLUME 91.7 FL (80.0-100.0); MEAN CORPUSCULAR HEMOGLOBIN 31.2 PG (27.0-34.0); MEAN PLATELET VOLUME 8.1 FL (7.0-11.0); PLATELET COUNT 276 TH/MM3 (150-450); RED BLOOD COUNT 2.74 MIL/MM3 (4.50-5.90); WHITE BLOOD COUNT 9.9 TH/MM3 (4.0-11.0)
[2017-09-24 06:50] LABS: BICARBONATE 27.3 MEQ/L (21.0-32.0); CALCIUM 8.2 MG/DL (8.5-10.1); CREATININE 5.42 MG/DL (0.60-1.30); MAGNESIUM 2.7 MG/DL (1.5-2.5)
[2017-09-24] MEDS ORDERED: IRON SUCROSE INJ 100 MG in SODIUM CHLORIDE 0.9% INJ 100 ML IV ONE (07:30)
[2017-09-24] MEDS: EPOETIN ALFA 10,000 UNITS/ML VIAL IV PUSH PRN (09:59)
[2017-09-24] MEDS: GENTAMICIN SULFATE 20 MG/2 ML VIAL OTHER PRN (09:59)
[2017-09-24] MEDS: HEPARIN SODIUM - IV 10,000 UNITS/10 ML VIAL PRN (09:59)
[2017-09-24] MEDS ORDERED: ECASA81 PO (10:47)
[2017-09-24] MEDS ORDERED: AMIO200T PO (10:47)
[2017-09-24] MEDS ORDERED: PLAV75TA29 PO (10:47)
--- NOTE | 2017-09-24 10:50 | HHI.DS ---
Discharge Summary Admission Date Sep 03, 2017 at 23:23 Discharge Date: Sep 24, 2017 Admitting Diagnosis nstemi; anemia; CKD; aorotic stenosis (1) Anemia ICD Code: D64.9 - Anemia Diagnosis: Principal Status: Acute (2) Acute renal failure ICD Code: N17.9 - Acute kidney failure, unspecified Diagnosis: Principal (3) End stage renal disease ICD Code: N18.6 - End stage renal disease Diagnosis: Principal Status: Acute (4) Coronary artery disease ICD Code: I25.10 - Atherosclerotic heart disease of [place] coronary artery without angina pectoris Diagnosis: Principal Status: Chronic (5) Aortic stenosis ICD Code: I35.0 - Nonrheumatic aortic (valve) stenosis Diagnosis: Principal Status: Chronic Procedures Cardiac catheterization Brief History - From Admission HPI 72 year male presents to the emergency department from home by EMS transport for evaluation of retrosternal chest pain. No reported associated shortness of breath sweats nausea vomiting referred neck jaw back shoulder arm pain. Patient denies any abdominal pain. Patient has history of known coronary vessel disease myocardial infarction, angina pectoris as well as stage IV chronic kidney disease. Patient also has history of aortic insufficiency aortic stenosis COPD dyslipidemia hypertensive heart disease mitral regurgitation morbid obesity obstructive sleep apnea. Patient states he frequently has episodes of similar type of chest pain that is minutes indurations however this is been present since 8:30 PM and unremitting. Patient was noted to be hypotensive upon EMS arrival with a systolic blood pressure of 90 mmHg. Patient was given aspirin and a 500 cc bolus of normal saline. Patient also suffers from chronic anemia due to his CKD. Patient was seen as recently as March 2017 for a cardiac catheterization which was canceled secondary to his creatinine being 2.7 at the time with a GFR of 16 it was determined that the contrast would cause him to have further renal failure deterioration and require hemodialysis. Patient was also seen by cardiothoracic surgery and indicated that to evaluate him for a transcatheter aortic valve replacement he would need to undergo cardiac catheterization however as it was an elective catheterization of the time the study was canceled. Patient has had low hemoglobin in the past requiring blood transfusion. Patient does not take any iron supplements. Patient is currently on no blood thinning agents. Patient has not noticed any epistaxis, bleeding hemoptysis hematemesis coffee-ground emesis melena or hematochezia. Patient denies increased bruising. Patient failed Epogen therapy. Patient is able to identify exacerbating or alleviating factors. Patient also reports that he was recently started on Lasix as a new medication within the past 3 weeks. Patient has not noticed any lower extremity swelling. Patient has not noticed any new dyspnea on exertion or orthopnea. Patient was noted to have ischemic changes on his EKG. Dr. Damian from cardiology was contacted and starting heparin, aspirin. Patient's hemoglobin came back 5.5 and 2 units PRBCs were ordered. Patient was accepted for admission by critical care medicine service. When I evaluated the patient in the ER he was sitting up in the ER stretcher while receiving his first unit of PRBCs. He rated his chest pain at 2 out of 10 in intensity along with jaw pain. He stated this was not significantly better than when he came in. Off note rectal exam done by ER physician revealed black stool which was Hemoccult positive. [facility] Past Medical History Narrative Medical Abnormal EKG non-STEMI secondary to severe anemia in 2013 aortic insufficiency or stenosis with worsening valve area carpal tunnel left wrist chronic kidney disease stage IV COPD dyslipidemia hypertension mitral valve regurgitation morbid obesity obstructive sleep apnea spinal stenosis appendectomy and right carpal tunnel repair Autoimmune Disease: No Heart Rhythm Problems: Yes (MURMUR SINCE CHILDHOOD) Cancer: Yes (SKIN) Cardiovascular Problems: Yes (CAD, ) High Cholesterol: Yes Chest Pain: No Congestive Heart Failure: Yes (bnp 581 in er 05/13/13) COPD: Yes Diabetes: No Diminished Hearing: Yes (GLASSES/CONTACT LENSES) Endocrine: No Gastrointestinal Disorders: No Glaucoma: No Genitourinary: Yes Hepatitis: No Hiatal Hernia: No Hypertension: Yes Immune Disorder: No Musculoskeletal: Yes Neurologic: No Psychiatric: No Reproductive: No Respiratory: Yes (COPD, SLEEP APNEA) Integumentary: No Immunizations Current: Yes Myocardial Infarction: Yes (SILENT NE FOUND IN 2008) Renal Failure: Yes (STAGE IV) Sleep Apnea: Yes (cpap at hs) Thyroid Disease: No Past Surgical History Abdominal Surgery: Yes (appendectomy) Appendectomy: Yes Cardiac Surgery: No Pacemaker: No Tonsillectomy: Yes (CHILDHOOD) Other Surgery: Yes Social History Alcohol Use: Yes (COUPLE DRINKS PER DAY) Tobacco Use: Yes (1 PPD) Substance Use: No Allergies-Medications (Allergen,Severity, Reaction): Coded Allergies: No Known Allergies (Verified Adverse Reaction, Unknown, 09/03/17) Reported Meds & Prescriptions Reported Meds & Active Scripts Active Reported Furosemide 40 Mg Tab 40 Mg PO DAILY Vitamin D3 (Cholecalciferol) 1,000 Unit Tab 1,000 Units PO DAILY Sodium Bicarbonate 325 Mg Tab Unknown Dose PO BIDPC Metoprolol Succinate ER 24 HR (Metoprolol Succinate) 50 Mg Tab 50 Mg PO DAILY Losartan (Losartan Potassium) 50 Mg Tab 50 Mg PO DAILY Atorvastatin (Atorvastatin Calcium) 80 Mg Tab 80 Mg PO HS Amlodipine (Amlodipine Besylate) 10 Mg Tab 10 Mg PO DAILY Review of Systems Except as stated in HPI: all other systems reviewed are Neg General / Constitutional: No: Fever, Chills HENT: No: Congestion Cardiovascular: Positive: Chest Pain or Discomfort, No: Palpitations, Diaphoresis Respiratory: No: Shortness of Breath Gastrointestinal: Positive: Nausea, No: Vomiting, Abdominal Pain Genitourinary: No: Flank Pain Musculoskeletal: No: Myalgias, Arthralgias, Edema Skin: No Rash Neurologic: Positive: Weakness, No: Dizziness, Syncope, Focal Abnormalities, Coordination Problem Psychiatric: No: Anxiety Endocrine: No: Heat Intolerance Hematologic/Lymphatic: No: Easy Bruising CBC/BMP: 09/24/17 0608 09/24/17 0608 Significant Findings Laboratory Tests Test 09/22/17 09:24 09/23/17 05:28 09/24/17 06:08 Red Blood Count 2.98 MIL/MM3 (4.50-5.90) 2.60 MIL/MM3 (4.50-5.90) 2.74 MIL/MM3 (4.50-5.90) Hemoglobin 8.9 GM/DL (13.0-17.0) 7.9 GM/DL (13.0-17.0) 8.5 GM/DL (13.0-17.0) Hematocrit 27.0 % (39.0-51.0) 24.0 % (39.0-51.0) 25.1 % (39.0-51.0) Red Cell Distribution Width 22.5 % (11.6-17.2) 24.1 % (11.6-17.2) 22.0 % (11.6-17.2) Neutrophils (%) (Auto) 74.4 % (16.0-70.0) Monocytes (%) (Auto) 11.8 % (0.0-8.0) Monocytes # (Auto) 1.2 TH/MM3 (0-0.9) Blood Urea Nitrogen 50 MG/DL (7-18) 61 MG/DL (7-18) Creatinine 4.12 MG/DL (0.60-1.30) 5.42 MG/DL (0.60-1.30) Magnesium Level 2.6 MG/DL (1.5-2.5) 2.7 MG/DL (1.5-2.5) Estimat Glomerular Filtration Rate 14 ML/MIN (>89) 10 ML/MIN (>89) Triglycerides Level 254 MG/DL (42-150) Cholesterol Level 89 MG/DL (120-200) HDL Cholesterol 26.6 MG/DL (40.0-60.0) Calcium Level 8.2 MG/DL (8.5-10.1) Potassium Level 3.4 MEQ/L (3.5-5.1) Imaging Last Impressions Chest CTA 09/16/17 0000 Signed Impressions: CONCLUSION: 1. Size measurements of the aortic root and tubular portion of the ascending a aide are listed above. The iliac circulation and the abdominal aorta are adequa te in caliber for delivery of the TAVR device. 2. There is extensive calcification of the valvular leaflets. There is only mi nimal calcification of the aortic annulus. There is mild cardiomegaly. 3. COPD changes within the pulmonary parenchyma. GI Bleed Scan Nuclear Medicine 09/13/17 0000 Signed Impressions: CONCLUSION: 1. No focal abnormality to suggest active hemorrhage. Catheter Placement X-Ray 09/12/17 0000 Signed Impressions: CONCLUSION: 1. Uncomplicated PermaCath placement as above. Chest X-Ray 09/04/17 0600 Signed Impressions: CONCLUSION: Cardiomegaly with minimal basilar atelectasis. No significant change from September 03. PE at Discharge GENERAL: This is a well-nourished, well-developed patient, in no apparent distress. CARDIOVASCULAR: Normal rate and regular rhythm. Harsh OMID murmur noted. RESPIRATORY: Good respiratory efforts. Diminished breath sounds at the bases. Otherwise breath sounds equal and clear to auscultation bilaterally. GASTROINTESTINAL: Abdomen soft, non-tender, non-distended. Normal active bowel sounds. MUSCULOSKELETAL: Extremities without cyanosis, or edema. NEURO: Alert & Oriented x4 to person, place, time, situation. Moves all ext x4 PSYCH: Grumpy. Pt update on day of discharge The patient was seen in dialysis. He said that he was still having shortness of breath with exertion. He wanted to go home. He did not want home health care at this time. He said he has a dialysis chair time on Friday. Discussed with nursing. Hospital Course NSTEMI/CAD/Paroxysmal a-fib/Aortic Stenosis/HTN The pt presented with CP which has resolved. CT surgery was consulted and recommended catheterization prior to TAVR work-up. Cath showed severe two vessel CAD including occluded collateralized RCA and severely diseased proximal LAD. Cardiology performed high risk PCI to LAD/diagonal branch bifurcation . TAVR planned in the future per cardiology. The pt was continued on Norvasc, metoprolol, amiodarone, ASA and Plavix. He was monitored on telemetry. He will follow up with cardiology and CT surgery as an outpt. Severe Anemia/ Recurrent GI bleed Bleeding scan negative. GI was consulted. EGD on September 04 showed gastritis. Colonoscopy revealed diverticulosis, polyp, and hemorrhoids but no active bleeding. S/P multiple red blood cell transfusions. He was continued on iron supplements. He received Epogen with dialysis. He will follow with GI as an outpt. End-stage renal disease Nephrology was consulted. Vas-Cath placed by IR on September 05 and we initiated hemodialysis.The pt was continued on dialysis as scheduled. Case management was consulted and outpt dialysis was set up. He will follow with nephrology as an outpt. He has a chair time with dialysis on Friday the . Pt Condition on Discharge: Stable Discharge Disposition: Discharge Home Discharge Time: > 30 minutes Discharge Instructions DIET: Follow Instructions for: Renal Failure Diet Activities you can perform: Weight Bearing as Melvin Follow up Referrals: Cardiology - 2 Weeks with Kelsy Cordova MD Cardiology, Interventional - 1 Week with Roldan Pryor MD Gastroenterology - 2 Weeks with Chris Baez MD Nephrology - [address] Shah PCP Follow-up - 1 Week New Orders: BASIC METABOLIC PROF - 3-5 Days CBC NO DIFF - 3-5 Days New Medications: Amiodarone (Amiodarone) 200 Mg Tab 200 MG PO DAILY for Heart, #[address] (Aspirin DR) 81 Mg Tabdr 81 MG PO DAILY for Heart, #30 TAB Clopidogrel (Plavix) 75 Mg Tab 75 MG PO DAILY for Heart, #30 TAB Continued Medications: Amlodipine (Amlodipine) 10 Mg Tab 10 MG PO DAILY for Blood Pressure Management, #30 TAB 0 Refills Atorvastatin (Atorvastatin) 80 Mg Tab 80 MG PO HS for Cholesterol Management, #30 TAB 0 Refills Cholecalciferol (Vitamin D3) 1,000 Unit Tab 1000 UNITS PO DAILY for Nutritional Supplement, #1 BOTTLE 0 Refills Furosemide (Furosemide) 40 Mg Tab 40 MG PO DAILY, #30 TAB 0 Refills Metoprolol Succinate ER 24 HR (Metoprolol Succinate ER 24 HR) 50 Mg Tab 50 MG PO DAILY, #30 TAB 0 Refills Discontinued Medications: Losartan (Losartan) 50 Mg Tab 50 MG PO DAILY for Blood Pressure Management, #30 TAB 0 Refills Sodium Bicarbonate (Sodium Bicarbonate) 325 Mg Tab Unknown Dose PO BIDPC, #60 TAB 0 Refills John Sherman DO Sep 24, 2017 10:50
[2017-09-24] MEDS: MULTIVITAMIN TAB PO SCH (11:14)
[2017-09-24] MEDS: FUROSEMIDE 40 MG TAB PO SCH (11:14)
[2017-09-24] MEDS: CLOPIDOGREL 75 MG TAB PO SCH (11:14)
[2017-09-24] MEDS: AMIODARONE 200 MG TAB PO SCH (11:14)
[2017-09-24] MEDS: FOLIC ACID 1 MG TAB PO SCH (11:14)
[2017-09-24] MEDS: CHOLECALCIFEROL (VIT D3) 1000 UNIT TAB PO SCH (11:14)
[2017-09-24] MEDS: PANTOPRAZOLE SOD 40 MG DELAYED RELEASE TAB PO SCH (11:15)
[2017-09-24] MEDS: THIAMINE HCL 100 MG TAB PO SCH (11:15)
[2017-09-24] MEDS: DOCUSATE SODIUM 50 MG/SENNA 8.6 MG TAB PO SCH (11:15)
[2017-09-24] MEDS: ASPIRIN EC 81 MG TABEC PO SCH (11:15)
[2017-09-24] MEDS: METOPROLOL SUCCINATE 50 MG EXTENDED RELEASE TAB PO SCH (11:25)
[2017-09-24] MEDS: SODIUM CHLORIDE 0.9% FLUSH 10 ML FLUSH IV FLUSH SCH (11:27)
--- NOTE | 2017-09-24 11:47 | HHI.DCPOC ---
Discharge Care Plan Diagnosis: (1) Acute renal failure (2) Anemia (3) End stage renal disease (4) Coronary artery disease (5) Aortic stenosis (6) Unstable angina (7) GI bleed Goals to Promote Your Health * To prevent worsening of your condition and complications * To maintain your health at the optimal level Directions to Meet Your Goals Take your medications as prescribed Follow your dietary instruction Follow activity as directed Keep your appointments as scheduled Take your immunizations and boosters as scheduled If your symptoms worsen call your PCP, if no PCP go to Urgent Care Center or Emergency Room Smoking is Dangerous to Your Health. Avoid second hand smoke Call the 24-hour hour crisis hotline for domestic abuse at John Sherman DO Sep 24, 2017 11:47
--- NOTE | 2017-09-24 11:51 | HHI.NPPN ---
Subjective History of Present Illness 72-year-old white male with history of hypertension, chronic kidney disease approaching ESRD who developed chest pain and shortness of breath Additional Remarks No acute complaints CAD LAD stent Review of Systems General Constitutional: Fatigue Objective Data Data 09/24/17 09/25/17 19:00 07:00 Output Total 2000 ml Balance -2000 ml Hemodialysis 2000 ml Vital Signs Date Time Temp Pulse Resp B/P (MAP) Pulse Ox O2 Delivery O2 Flow Rate FiO2 09/24/17 11:30 72 22 141/104 (116) 100 09/24/17 09:00 73 09/24/17 08:00 72 09/24/17 07:30 100 Room Air 09/24/17 07:00 98.6 73 20 133/67 (89) 100 09/24/17 07:00 72 09/24/17 06:00 73 09/24/17 05:00 69 09/24/17 04:00 84 09/24/17 03:26 97.3 75 16 129/66 (87) 98 09/24/17 03:00 74 09/24/17 02:00 77 09/24/17 01:00 76 09/24/17 00:00 76 09/23/17 23:10 98.0 73 18 122/57 (78) 100 09/23/17 23:00 91 09/23/17 22:54 98.0 73 18 122/57 100 09/23/17 22:00 74 09/23/17 21:00 76 09/23/17 20:21 97.7 78 18 138/69 100 09/23/17 20:02 97.9 83 20 140/90 100 09/23/17 20:00 83 09/23/17 19:38 100 Room Air 09/23/17 19:38 97.9 83 20 140/90 (107) 100 09/23/17 19:00 82 09/23/17 17:04 82 09/23/17 16:00 98.3 88 20 121/65 (83) 99 09/23/17 16:00 88 09/23/17 15:00 80 09/23/17 14:00 92 09/23/17 13:00 82 09/23/17 12:00 82 -: 09/24/17 0608 09/24/17 0608 Physical Exam General Appearance: Well Developed, Well Nourished Pulmonary Resp Exam: Crackles, Decreased Bases Cardiology CV Exam: Regular, Normal Sinus Rhythm, Murmur Gastrointestinal/Abdomen GI Exam: Soft, Non-Tender, Bowel Sounds Present Extremeties Extremities Exam: Trace Edema Neurologic Neuro Exam: Alert, Awake, Oriented Assessment/Plan Problem List: (1) Acute renal failure ICD Codes: N17.9 - Acute kidney failure, unspecified Plan: Continue HD MWF. HD done 2 L off Heart catheterization with severe two-vessel coronary artery disease: LAD 80% and right coronary artery total occlusion severely AV stenosis TAVR and coronary stent stent done LAD Angioplasty 1 st diagonal Continue supportive care Permcath in place repeat colonoscopy polypectomy done no obvious source of bleeding outpatient dialysis setup ok to dc (2) CKD (chronic kidney disease) stage 4, GFR 15-29 ml/min ICD Codes: N18.4 - Chronic kidney disease, stage 4 (severe) Plan: Patient may have progress to stage V (3) GI bleed ICD Codes: K92.2 - Gastrointestinal hemorrhage, unspecified Status: Acute Plan: GI following. (4) Anemia ICD Codes: D64.9 - Anemia Status: Acute Plan: Status post blood transfusion (5) ACS (acute coronary syndrome) ICD Codes: I24.9 - Acute ischemic heart disease, unspecified Status: Acute Plan: Cardiology following. s/p Cath. Has CAD and . (6) Hypertension ICD Codes: I10 - Essential (primary) hypertension Plan: Continue to monitor Problem Qualifiers (1) GI bleed: Qualified Codes: K92.2 - Gastrointestinal hemorrhage, unspecified Gaurav Shah MD Sep 24, 2017 11:51
== END 2017-09-24 13:37 | disposition home or self-care (01) | DRG 248 ==
LOC: NEPC 21:44 → NEDA 23:23 → HIMN 09-04 00:20 → HCIS 09-09 19:44
PROVIDERS: ADMIT Hospitalist; ATTEND Hospitalist
PROC: 30233N1 Transfusion of Nonautologous Red Blood Cells into Peripheral Vein, Percutaneous Approach (ICD-10-PCS; 2017-09-03)
PROC: 0DB68ZX Excision of Stomach, Via Natural or Artificial Opening Endoscopic, Diagnostic (ICD-10-PCS; 2017-09-04)
PROC: 05HM33Z Insertion of Infusion Device into Right Internal Jugular Vein, Percutaneous Approach (ICD-10-PCS; 2017-09-05)
PROC: 5A1D70Z Performance of Urinary Filtration, Intermittent, Less than 6 Hours Per Day (ICD-10-PCS; 2017-09-05)
PROC: 4A023N7 Measurement of Cardiac Sampling and Pressure, Left Heart, Percutaneous Approach (ICD-10-PCS; 2017-09-08)
PROC: B2111ZZ Fluoroscopy of Multiple Coronary Arteries using Low Osmolar Contrast (ICD-10-PCS; 2017-09-08)
PROC: 05HM33Z Insertion of Infusion Device into Right Internal Jugular Vein, Percutaneous Approach (ICD-10-PCS; 2017-09-12)
PROC: 0DJD8ZZ Inspection of Lower Intestinal Tract, Via Natural or Artificial Opening Endoscopic (ICD-10-PCS; 2017-09-12)
PROC: 0DBN8ZX Excision of Sigmoid Colon, Via Natural or Artificial Opening Endoscopic, Diagnostic (ICD-10-PCS; 2017-09-16)
PROC: 02703ZZ Dilation of Coronary Artery, One Artery, Percutaneous Approach (ICD-10-PCS; 2017-09-22)
PROC: 4A023N7 Measurement of Cardiac Sampling and Pressure, Left Heart, Percutaneous Approach (ICD-10-PCS; 2017-09-22)
PROC: B2111ZZ Fluoroscopy of Multiple Coronary Arteries using Low Osmolar Contrast (ICD-10-PCS; 2017-09-22)
PROC: 02703DZ Dilation of Coronary Artery, One Artery with Intraluminal Device, Percutaneous Approach (ICD-10-PCS; principal; 2017-09-22 10:00)
DX: I21.4 Non-ST elevation (NSTEMI) myocardial infarction (principal); I50.33 Acute on chronic diastolic (congestive) heart failure; I25.110 Atherosclerotic heart disease of native coronary artery with unstable angina pectoris; N17.9 Acute kidney failure, unspecified; K92.2 Gastrointestinal hemorrhage, unspecified; Z99.81 Dependence on supplemental oxygen; I25.82 Chronic total occlusion of coronary artery; I48.0 Paroxysmal atrial fibrillation; N18.6 End stage renal disease; I08.0 Rheumatic disorders of both mitral and aortic valves; I13.2 Hypertensive heart and chronic kidney disease with heart failure and with stage 5 chronic kidney disease, or end stage renal disease; E66.01 Morbid (severe) obesity due to excess calories; J44.9 Chronic obstructive pulmonary disease, unspecified; D63.1 Anemia in chronic kidney disease; I25.2 Old myocardial infarction; G47.33 Obstructive sleep apnea (adult) (pediatric); E78.5 Hyperlipidemia, unspecified; M48.00 Spinal stenosis, site unspecified; F17.210 Nicotine dependence, cigarettes, uncomplicated; H91.90 Unspecified hearing loss, unspecified ear; K29.60 Other gastritis without bleeding; D64.89 Other specified anemias; G56.02 Carpal tunnel syndrome, left upper limb; E61.1 Iron deficiency; K57.30 Diverticulosis of large intestine without perforation or abscess without bleeding; K63.5 Polyp of colon; K64.4 Residual hemorrhoidal skin tags; K64.8 Other hemorrhoids; Z99.2 Dependence on renal dialysis; Z68.33 Body mass index [BMI] 33.0-33.9, adult; Z82.49 Family history of ischemic heart disease and other diseases of the circulatory system; Z85.828 Personal history of other malignant neoplasm of skin
CPT/HCPCS: 36430; 36556; 36558; 71045; 74174; 76937; 77001; 78278; 80048; 80053; 80061; 80069; 80074; 82306; 82550; 82552; 82607; 82746; 82948; 83010; 83540; 83550; 83615; 83735; 83970; 84100; 84484; 85002; 85007; 85014; 85018; 85025; 85027; 85610; 85730; 86850; 86900; 86901; 86920; 87641; 88305; 88312; 90935; 92928; 93005; 93306; 93454; 94010; 94150; 94664; 96365; 96374; 96375; 99152; 99153; A9560; C1725; C1750; C1752; C1760; C1769; C1876; C1887; C1893; C9113; C9460; G0269; J0690; J1580; J1644; J1756; J1940; J2250; J2270; J2765; J3010; J7030; J7050; P9016; P9047; Q0163; Q4081; Q9967

== ENCOUNTER 2017-10-08 06:31 | Observation (INO) ==
[2017-10-08 07:16] LABS: Baso # (Auto) 0.4 th/mm3 (0.0-0.2); Baso % (Auto) 3.6 % (0.0-2.0); Eos # (Auto) 0.3 th/mm3 (0.0-0.4); Eos % (Auto) 3.1 % (0.0-4.0); Hematocrit 23.5 % (39.0-51.0); Hemoglobin 7.6 gm/dL (13.0-17.0); Lymph # (Auto) 1.2 th/mm3 (1.0-4.8); Lymph % (Auto) 11.5 % (9.0-44.0); Mean Corpuscular HGB Conc 32.5 % (32.0-36.0); Mean Corpuscular Hemoglobin 33.5 pg (27.0-34.0); Mean Corpuscular Volume 102.9 fL (80.0-100.0); Mean Platelet Volume 8.6 fL (7.0-11.0); Mono # (Auto) 0.8 th/mm3 (0.0-0.9); Mono % (Auto) 7.2 % (0.0-8.0); Neut # (Auto) 8.1 th/mm3 (1.8-7.7); Neut % (Auto) 74.6 % (16.0-70.0); Platelet Count 310 th/mm3 (150-450); Red Blood Count 2.28 mil/mm3 (4.50-5.90); Red Cell Distribution Width 25.7 % (11.6-17.2); White Blood Count 10.8 th/mm3 (4.0-11.0)
[2017-10-08 07:20] LABS: Chloride 106 meq/L (98-107); Potassium 3.6 meq/L (3.5-5.1); Sodium 142 meq/L (136-145)
[2017-10-08 07:22] LABS: Calcium 8.5 mg/dL (8.5-10.1)
[2017-10-08 07:23] LABS: Anion Gap 13 meq/L (5-15); Blood Urea Nitrogen 39 mg/dL (7-18); Carbon Dioxide 22.8 meq/L (21.0-32.0); Glucose,Random 145 mg/dL (74-106)
[2017-10-08 07:24] LABS: Activated Partial Thrombo Time 23.7 sec (24.3-30.1); INR 0.9 Ratio; Prothrombin Time 9.6 sec (9.8-11.6)
[2017-10-08 07:26] LABS: Alanine Aminotransferase 25 U/L (12-78); Aspartate Aminotransferase 18 U/L (15-37); Glomerular Filtration Rate 11 mL/min (>89)
--- NOTE | 2017-10-08 07:26 | ED ---
HPI General Chief Complaint: Recheck/Abnormal Lab/Rx Stated Complaint: low hemaglobin/blood work Time Seen by Provider: 10/08/17 07:23 Source: patient Mode of arrival: ambulatory Limitations: no limitations History of Present Illness HPI narrative: 72-year-old male patient with history of end-stage renal disease on dialysis, recent history of GI bleed of unknown source, significant anemia with recent transfusions, presents to the ER today sent in by [facility] dialysis clinic because on Friday he had blood work done and it showed that his hemoglobin was low. He was sent in for anemia and possible transfusion. He states that he has been having some dyspnea on exertion recently. However, he denies any chest pains, or other issues. Related Data Home Medications Medication Instructions Recorded Confirmed amiodarone mg PO DAILY 10/08/17 aspirin [Aspirin Low Dose] 81 mg PO DAILY 10/08/17 10/08/17 atorvastatin mg PO DAILY 10/08/17 clopidogrel [Plavix] 75 mg PO DAILY 10/08/17 10/08/17 furosemide [Lasix] mg PO DAILY 10/08/17 metoprolol succinate 50 mg PO DAILY 10/08/17 10/08/17 [id number] 1 tab PO DAILY 10/08/17 10/08/17 [Multivitamin 50 Plus] Allergies Allergy/AdvReac Type Severity Reaction Status Date / Time No Known Allergies Allergy Unknown none Uncoded 10/08/17 07:14 Review of Systems Except as stated in HPI: all other systems reviewed are negative [facility] Medical History Medical History Aortic stenosis (Acute) CKD (chronic kidney disease) (Acute) COPD (chronic obstructive pulmonary disease) (Acute) HTN (hypertension) (Acute) High cholesterol (Acute) History of renal dialysis (Acute) Myocardial infarct (Acute) Renal failure (Acute) Surgical History Surgical History H/O heart artery stent (Acute) History of appendectomy (Acute) History of carpal tunnel release (Acute) Hx of tonsillectomy (Acute) Status post insertion of dialysis catheter (Acute) Social History Social History Substance History: No History of Abuse Second Hand Smoke Exposure: Yes Smoking Status: Current every day smoker Tobacco Type: Cigarettes How Often Do You Have a Drink Containing Alcohol: 4 or more times a week Immunization History Tetanus Immunization: >5 Years Hx Influenza Vaccine This Season: Yes Exam Narrative Exam Narrative: GENERAL: Well-developed elderly male patient currently in mild distress. Awake and oriented 3. SKIN: Focused skin assessment warm/dry. HEAD: Atraumatic. Normocephalic. EYES: Pupils equal and round. No scleral icterus. No injection or drainage. ENT: No nasal bleeding or discharge. Mucous membranes pink and moist. NECK: Trachea midline. No JVD. Supple. CARDIOVASCULAR: Regular rate and rhythm. With notable ejection murmur. RESPIRATORY: No accessory muscle use. Clear to auscultation. Breath sounds equal bilaterally. GASTROINTESTINAL: Abdomen soft, non-tender, nondistended. Hepatic and splenic margins not palpable. MUSCULOSKELETAL: No obvious deformities. No clubbing. No cyanosis. No edema. NEUROLOGICAL: Awake and alert. No obvious cranial nerve deficits. Motor grossly within normal limits. Normal speech. PSYCHIATRIC: Appropriate mood and affect; insight and judgment normal. Course Hospital Course: Lab work shows significant anemia, and patient is symptomatic. At this point, he was ordered for 2 units of PRBCs. Case was discussed with Dr. Trinh who is covering for renal, states that the patient can be admitted to the hospital with medical service, will need dialysis after transfusions at the hospital. At this point, case was discussed with Dr. Joiner for admission. Initial Documented Vital Signs Temperature 98 F 10/08/17 06:37 Pulse Rate 104 H 10/08/17 06:37 Respiratory Rate 20 10/08/17 06:37 Blood Pressure 113/53 L 10/08/17 06:37 Pulse Oximetry 99 10/08/17 06:37 Last Documented Vital Signs Temperature 98.0 F 10/08/17 06:52 Pulse Rate 88 10/08/17 06:59 Respiratory Rate 17 10/08/17 06:59 Blood Pressure 111/54 L 10/08/17 06:59 Pulse Oximetry 99 10/08/17 06:59 Medical Decision Making Differential Diagnosis Differential Diagnosis: Lab error versus significant anemia Lab Data Result diagrams: 10/08/17 07:00 10/08/17 07:00 Lab Results 10/08/17 10/08/1718 Range/Units 07:00 07:00 07:00 CBC w Diff Slide review pending WBC 10.8 (4.0-11.0) th/mm3 RBC 2.28 L (4.50-5.90) mil/mm3 Hgb 7.6 L (13.0-17.0) gm/dL Hct 23.5 L (39.0-51.0) % MCV 102.9 H (80.0-100.0) fL MCH 33.5 (27.0-34.0) pg MCHC 32.5 (32.0-36.0) % RDW 25.7 H (11.6-17.2) % Plt Count 310 (150-450) th/mm3 MPV 8.6 (7.0-11.0) fL Neut % (Auto) 74.6 H (16.0-70.0) % Lymph % (Auto) 11.5 (9.0-44.0) % [place] % (Auto) 7.2 (0.0-8.0) % Eos % (Auto) 3.1 (0.0-4.0) % Baso % (Auto) 3.6 H (0.0-2.0) % Neut # (Auto) 8.1 H (1.8-7.7) th/mm3 Lymph # (Auto) 1.2 (1.0-4.8) th/mm3 [place] # (Auto) 0.8 (0.0-0.9) th/mm3 Eos # (Auto) 0.3 (0.0-0.4) th/mm3 Baso # (Auto) 0.4 H (0.0-0.2) th/mm3 WBC Differential . Diff Scan Auto diff confirmed Differential Comment . Basophilic Stippling Faint H (None) PT 9.6 L (9.8-11.6) sec INR 0.9 Ratio APTT 23.7 L (24.3-30.1) sec Sodium 142 (136-145) meq/L Potassium 3.6 (3.5-5.1) meq/L Chloride 106 (98-107) meq/L Carbon Dioxide 22.8 (21.0-32.0) meq/L Anion Gap 13 (5-15) meq/L BUN 39 H (7-18) mg/dL Creatinine 5.20 H (0.60-1.30) mg/dL Estimated GFR 11 L (>89) mL/min Random Glucose 145 H (74-106) mg/dL Calcium 8.5 (8.5-10.1) mg/dL Total Bilirubin 0.3 (0.2-1.0) mg/dL AST 18 (15-37) U/L ALT 25 (12-78) U/L Alkaline Phosphatase 92 (45-117) U/L Total Protein 6.3 L (6.4-8.2) g/dL Albumin 3.0 L (3.4-5.0) g/dL Discharge Plan Discharge Disposition Patient Disposition: 30 Still Patient Discharge Condition Condition: Stable Discharge Order Discharge Orders: Discharge Order (Routine); Ordered 10/08/17 Ordered By: Mihaela Pires Discharge Details Anticipated Discharge Date: 10/08/17 Diagnosis: Anemia, Dialysis patient Physicians Team ED Provider: Mihaela Pires Rxs /Orders / Referrals /Forms Prescriptions: No Action clopidogrel [Plavix] 75 mg Tablet 75 mg PO DAILY RF: 0 aspirin [Aspirin Low Dose] 81 mg Tablet,Delayed Release (Dr/Ec) 81 mg PO DAILY RF: 0 furosemide [Lasix] 20 mg Tablet PO DAILY RF: 0 atorvastatin 10 mg Tablet PO DAILY RF: 0 [id number]-[id number]-[id number] [Multivitamin 50 Plus] Tablet 1 tab PO DAILY RF: 0 metoprolol succinate 25 mg Tablet Extended Release 24 Hr 50 mg PO DAILY RF: 0 amiodarone 100 mg Tablet PO DAILY RF: 0 Status ED Status: With Doctor
[2017-10-08 07:28] LABS: Total Protein 6.3 g/dL (6.4-8.2)
[2017-10-08 07:29] LABS: Alkaline Phosphatase 92 U/L (45-117)
[2017-10-08] MEDS ORDERED: Sodium Chlor 0.9% Inj 250 ML IV.SIG SCH ×4 (08:00→17:00)
[2017-10-08] MEDS ORDERED: Temazepam 15 MG Capsule PO PRN (10:02)
[2017-10-08] MEDS ORDERED: Bisacodyl 10 MG Supp RECTAL PRN (10:02)
[2017-10-08] MEDS ORDERED: Acetaminophen 325 MG Tablet PO PRN ×2 (10:02→11:15)
--- NOTE | 2017-10-08 11:57 | P.HP ---
History of Present Illness Primary Care Physician: Antoine Keller History of Present Illness: This is a pleasant 72-year-old male patient with a known medical history of end- stage renal disease, CAD and history of anemia who presented to the ED with significant anemia on blood work. Patient is in end-stage renal disease patient , most recently started dialysis back in early August, follows with Dr. Shah outpatient with [facility]. Supposedly patient had blood work done on Friday and showed his hemoglobin was 7. Patient states that he has had roughly 10 units of PRBC transfused since September 03. He has also been getting Epogen and iron 3 times per week with his dialysis. Patient does admit to recent fatigue. Denies any recent illness including fever, chills, cough, shortness of breath , abdominal pain, nausea, vomiting or diarrhea dysuria. Patient usually undergoes dialysis Fridays. Patient denies any chest pain or any shortness of breath. - Diagnosis (1) Anemia (2) Dialysis patient Inpatient Certification: I certify that the inpatient services were ordered in accordance with Medicare regulations governing the order. This includes certification that hospital inpatient services are reasonable and necessary and in the case of services not specified as inpatient-only under 42 CFR 419.22(n), that they are appropriately provided as inpatient services in accordance to with the 2-midnight benchmark under 43 CFR 412.3(e) Review of Systems All other systems reviewed negative except as stated in HPI PMFSH - History History Provided By: Patient - Medical History Medical History: Medical History (Last Reviewed 10/08/17 @ 07:24 by Mihaela Pires MD) Aortic stenosis CKD (chronic kidney disease) COPD (chronic obstructive pulmonary disease) HTN (hypertension) High cholesterol Myocardial infarct Renal failure History of renal dialysis - Surgical History Surgical History: Surgical History (Last Reviewed 10/08/17 @ 07:24 by Mihaela Pires MD) H/O heart artery stent History of appendectomy History of carpal tunnel release Hx of tonsillectomy Status post insertion of dialysis catheter - Family History Family History: Family History (Last Updated 10/08/17 @ 12:21 by Jesi Arredondo) Other No significant family history - Tobacco History Second Hand Smoke Exposure: Yes Tobacco Use In Past 30 Days: Yes Smoking Status: Current every day smoker Tobacco Type: Cigarettes - Alcohol History How Often Do You Have a Drink Containing Alcohol: 4 or more times a week - Substance Use History Substance History: No History of Abuse - Immunization History Tetanus Immunization: >5 Years Hx Influenza Vaccine This Season: Yes Medications and Allergies Active Medications: Active Medications Acetaminophen (Tylenol) 650 mg PO Q6H PRN PRN Reason: Temp > 100.4 Al Hydroxide/Mg Hydroxide (Milk Of Magnesia Liq) 30 ml PO Q12H PRN PRN Reason: Mild Constipation Bisacodyl (Dulcolax Supp) 10 mg RECTAL DAILY PRN PRN Reason: SEVERE CONSITIPATION Sodium Chloride (Ns Inj) 250 mls @ 15 mls/hr IV.SIG ONCE CIARA Stop: 10/09/17 00:39 Lactulose (Lactulose Liq) 30 ml PO DAILY PRN PRN Reason: SEVERE CONSITIPATION Ondansetron HCl (Zofran Inj) 4 mg IV.PUSH Q6H PRN PRN Reason: NAUSEA OR VOMITING Senna/Docusate Sodium (Sylvie-Colace) 1 tab PO BID CIARA Sennosides (Senokot) 17.2 mg PO Q12H PRN PRN Reason: Moderate Constipation Temazepam (Restoril) 15 mg PO HS PRN PRN Reason: INSOMNIA Allergies Allergy/AdvReac Type Severity Reaction Status Date / Time No Known Allergies Allergy Unknown none Uncoded 10/08/17 07:14 Home Medications Medication Instructions Recorded Confirmed Type amiodarone mg PO DAILY 10/08/17 History aspirin [Aspirin Low Dose] 81 mg PO DAILY 10/08/17 10/08/17 History atorvastatin mg PO DAILY 10/08/17 History clopidogrel [Plavix] 75 mg PO DAILY 10/08/17 10/08/17 History furosemide [Lasix] mg PO DAILY 10/08/17 History metoprolol succinate 50 mg PO DAILY 10/08/17 10/08/17 History wjeffzoandof-oikokrwc-twayym 1 tab PO DAILY 10/08/17 10/08/17 History [Multivitamin 50 Plus] Exam Vital signs: Vital Signs 10/08/17 06:37 10/08/17 06:52 10/08/17 06:59 Temperature 98 F 98.0 F Pulse Rate 104 H 104 H 88 Respiratory Rate 20 20 17 Blood Pressure 113/53 L 113/53 L 111/54 L Pulse Oximetry 99 99 99 10/08/17 08:00 10/08/17 09:00 Temperature Pulse Rate 82 80 Respiratory Rate 17 16 Blood Pressure 106/54 L 117/74 Pulse Oximetry 99 Intake & Output 10/07/17 10/08/17 10/08/17 18:59 06:59 18:59 Weight 103 kg Narrative: GENERAL: Well-developed, well-nourished patient in [facility]. SKIN: Warm and dry. No rash. HEAD: Normocephalic. Atraumatic. EYES: Pupils equal and round. No scleral icterus. Right subconjunctival hemorrhage. ENT: No nasal bleeding or discharge. Mucous membranes pink and moist. NECK: Supple. Trachea midline. CARDIOVASCULAR: Regular rate and rhythm. S1, S2 noted. No murmur appreciated. RESPIRATORY: No accessory muscle use. Clear to auscultation. Breath sounds equal bilaterally. GASTROINTESTINAL: Abdomen soft, non-tender, nondistended. Normoactive bowel sounds x4. MUSCULOSKELETAL: No obvious deformities. Extremities without clubbing, cyanosis , or edema. NEUROLOGICAL: Awake and alert. No obvious cranial nerve deficits. Motor grossly within normal limits. 5/5 muscle strength in bilateral upper and lower extremities. Normal speech. PSYCHIATRIC: Appropriate mood and affect; insight and judgment normal. Results - Labs CBC & Chem 7: 10/08/17 07:00 10/08/17 07:00 Labs: Laboratory Results - last 24 hr 10/08/17 10/08/17 10/08/17 07:00 07:00 07:00 CBC w Diff Slide review pending WBC 10.8 RBC 2.28 L Hgb 7.6 L Hct 23.5 L MCV 102.9 H MCH 33.5 MCHC 32.5 RDW 25.7 H Plt Count 310 MPV 8.6 Neut % (Auto) 74.6 H Lymph % (Auto) 11.5 [place] % (Auto) 7.2 Eos % (Auto) 3.1 Baso % (Auto) 3.6 H Neut # (Auto) 8.1 H Lymph # (Auto) 1.2 [place] # (Auto) 0.8 Eos # (Auto) 0.3 Baso # (Auto) 0.4 H WBC Differential . Diff Scan Auto diff confirmed Differential Comment . Basophilic Stippling Faint H PT 9.6 L INR 0.9 APTT 23.7 L Sodium 142 Potassium 3.6 Chloride 106 Carbon Dioxide 22.8 Anion Gap 13 BUN 39 H Creatinine 5.20 H Estimated GFR 11 L Random Glucose 145 H Calcium 8.5 Total Bilirubin 0.3 AST 18 ALT 25 Alkaline Phosphatase 92 Total Protein 6.3 L Albumin 3.0 L Blood Type Blood Type Recheck Antibody Screen 10/08/17 07:00 CBC w Diff WBC RBC Hgb Hct MCV MCH MCHC RDW Plt Count MPV Neut % (Auto) Lymph % (Auto) [place] % (Auto) Eos % (Auto) Baso % (Auto) Neut # (Auto) Lymph # (Auto) [place] # (Auto) Eos # (Auto) Baso # (Auto) WBC Differential Diff Scan Differential Comment Basophilic Stippling PT INR APTT Sodium Potassium Chloride Carbon Dioxide Anion Gap BUN Creatinine Estimated GFR Random Glucose Calcium Total Bilirubin AST ALT Alkaline Phosphatase Total Protein Albumin Blood Type A Positive Blood Type Recheck Not needed Antibody Screen Negative Caprini VTE Risk Assessment Caprini VTE Risk Assessment: Moderate/High Risk (score >= 2) Caprini Risk Assessment Model: Point Value = 1 Point Value = 2 Point Value = 3 Point Value = 5 Age 41-60 Minor surgery BMI > 25 kg/m2 Swollen legs Varicose veins or History of unexplained or recurrent spontaneous Oral contraceptives or hormone replacement Sepsis (< 1 month) Serious lung disease, including pneumonia (< 1 month) Abnormal pulmonary function Acute myocardial infarction Congestive heart failure (< 1 month) History of inflammatory bowel disease Medical patient at bed rest Age 61-74 Arthroscopic surgery Major open surgery (> 45 min) Laparoscopic surgery (> 45 min) Malignancy Confined to bed (> 72 hours) Immobilizing plaster cast Central venous access Age >= 75 History of VTE Family history of VTE Factor V Leiden Prothrombin [id number] Lupus anticoagulant Anticardiolipin antibodies Elevated serum homocysteine Heparin-induced thrombocytopenia Other congenital or acquired thrombophilia Stroke (< 1 month) Elective arthroplasty Hip, pelvis, or leg fracture Acute spinal cord injury (< 1 month) Prophylaxis Regimen: Total Risk Factor Score Risk Level Prophylaxis Regimen 0-1 Low Early ambulation 2 Moderate Order ONE of the following: *Sequential Compression Device (SCD) *Heparin 5000 units SQ BID 3-4 Higher Order ONE of the following medications: *Heparin 5000 units SQ TID *Enoxaparin/Lovenox 40 mg SQ daily (WT < 150 kg, CrCl > 30 mL/min) *Enoxaparin/Lovenox 30 mg SQ daily (WT < 150 kg, CrCl > 10-29 mL/min) *Enoxaparin/Lovenox 30 mg SQ BID (WT < 150 kg, CrCl > 30 mL/min) AND/OR *Sequential Compression Device (SCD) 5 or more Highest Order ONE of the following medications: *Heparin 5000 units SQ TID (Preferred with Epidurals) *Enoxaparin/Lovenox 40 mg SQ daily (WT < 150 kg, CrCl > 30 mL/min) *Enoxaparin/Lovenox 30 mg SQ daily (WT < 150 kg, CrCl > 10-29 mL/min) *Enoxaparin/Lovenox 30 mg SQ BID (WT < 150 kg, CrCl > 30 mL/min) AND *Sequential Compression Device (SCD) Assessment and Plan - Assessment (1) Anemia Code(s): D64.9 - Anemia, unspecified Status: Acute Plan: - Consult placed to nephrology, will undergo dialysis treatment today as well as 1 unit PRBC transfusion. - Hemoglobin 7.6 on presentation. Will monitor H&H. - Likely secondary to chronic anemia and iron deficiency anemia. No active bleeding. - Patient does chronically take Epogen and iron infusions during dialysis treatments. Defer to nephrology. - Allow renal diet. (2) Dialysis patient Code(s): Z99.2 - Dependence on renal dialysis Status: Acute Plan: Will undergo dialysis today. Likely discharge home after treatment. - Plan Discharge Planning: Patient will likely be stable for discharge after dialysis treatment. Although dialysis treatment is not scheduled until after 5 PM. Plan for discharge in a.m. (1) Anemia Qualifiers: Anemia type: due to chronic kidney disease
--- NOTE | 2017-10-08 15:49 | MB ---
cc: Radha Trinh MD DATE: 10/08/2017 REASON FOR CONSULTATION: End-stage renal disease, on hemodialysis for management. HISTORY OF PRESENT ILLNESS: This is a 72-year-old male with a past medical history of ischemic heart disease, hypertension, end-stage renal disease, on hemodialysis, history of chronic anemia, COPD, aortic stenosis, who was referred to the hospital because of low hemoglobin. The patient has chronic anemia and he has not been responding very well to the Epogen. He denies any blood loss. He had a GI workup done including 2 colonoscopies and upper endoscopy and according to patient, they did not find any source of the bleeding. He denies any melena. There is no fresh blood in the stool. He denies any abdominal pain. The patient has been getting the Epogen. He is getting dialysis Friday, Friday and Friday and following with Dr. Shah. Dr. Shah is on vacation, so I am covering for him. The patient had a blood test done on Friday and the hemoglobin came to 6.8, and he was referred to the emergency department. The patient came in here with the blood test showing the hemoglobin 7.6. He denies any nausea, vomiting. No shortness of breath. PAST MEDICAL HISTORY: Hypertension, ischemic heart disease, chronic obstructive pulmonary disease, hyperlipidemia, chronic anemia, end-stage renal disease, on hemodialysis 3 times per week, aortic stenosis. PAST SURGICAL HISTORY: History of cardiac catheterization with stenting done, multiple colonoscopies and endoscopy done, appendicectomy done, carpal tunnel surgery done, tonsillectomy. REVIEW OF SYSTEMS: Denies any history of fever. No headache, dizziness or blurring of vision. No shortness of breath. No chest pain. No palpitation. No nausea, vomiting. No abdominal pain. No history of diarrhea. SOCIAL HISTORY: The patient is , lives with his . There is history of smoking. He is currently smoking every day and drinking alcohol 4 or more times a week. FAMILY HISTORY: Noncontributory. ALLERGIES: HE HAS NO KNOWN DRUG ALLERGIES. MEDICATIONS: Currently, he is on following medications: 1. Tylenol as needed. 2. Dulcolax as needed. 3. Zofran as needed. 4. Senokot as needed. 5. Restoril as needed. PHYSICAL EXAMINATION: GENERAL: The patient is awake, alert. He is not in acute distress. VITAL SIGNS: His last blood pressure is 106/54, temperature is 98, oxygen saturation is 99% on room air. HEENT: Pupils are mid constricted. Nonicteric sclerae. Conjunctivae pale. NECK: Supple. JVD is not elevated. LUNGS: The patient has bilateral good air entry with occasional wheezing. HEART: S1, S2. Regular rhythm. ABDOMEN: Distended, soft, lax. There is no tenderness. Bowel sounds positive. EXTREMITIES: He has mild edema in the legs. INVESTIGATIONS: WBC count is 10.8, hemoglobin 7.6, platelet count of 310, neutrophils 74.6%, MCV is 102.9 and MCH is 33.5. INR is 0.9. Sodium 142, potassium 3.6, chloride 106, bicarbonate 22.8, BUN 39, creatinine 5.2, albumin 3.0, total protein 6.3. ASSESSMENT AND PLAN: 1. Anemia with recurrent blood transfusion. 2. End-stage renal disease, on hemodialysis. 3. History of hypertension. 4. Chronic obstructive pulmonary disease. 5. Congestive heart failure. 6. Hyperlipidemia. The patient has been on hemodialysis Friday, Friday and Friday. He had his last hemodialysis done on Friday. The patient needs blood transfusion. He will be transfused 2 units. His hemoglobin is 7.6, but it was 6.8 before 2 days ago. He denies any apparent blood loss. He was started on dialysis 3 or 4 weeks ago. If the hemoglobin is not improving, he already had the GI workup, then he should be considered to refer to hematology. I will defer this to Dr. Shah when he comes back next week. In the meantime, I already arranged for his hemodialysis today and he will be getting a blood transfusion during the dialysis. Thank you for the consultation and patient will be possibly discharged either later today or tomorrow and can continue the dialysis as outpatient. MD PETR [facility]/BRYSON , 03:28 PM , 03:48 PM
[2017-10-08] MEDS: Senna/Docusate Sodium 8.6/50 MG Tablet PO SCH (20:34)
[2017-10-09 05:35] LABS: Baso % (Auto) 0.4 % (0.0-2.0); Eos # (Auto) 0.2 th/mm3 (0.0-0.4); Eos % (Auto) 2.3 % (0.0-4.0); Hematocrit 23.5 % (39.0-51.0); Hemoglobin 7.9 gm/dL (13.0-17.0); Lymph # (Auto) 0.9 th/mm3 (1.0-4.8); Lymph % (Auto) 9.2 % (9.0-44.0); Mean Corpuscular HGB Conc 33.8 % (32.0-36.0); Mean Corpuscular Hemoglobin 33.2 pg (27.0-34.0); Mean Corpuscular Volume 98.1 fL (80.0-100.0); Mean Platelet Volume 8.8 fL (7.0-11.0); Mono # (Auto) 0.8 th/mm3 (0.0-0.9); Neut # (Auto) 8.2 th/mm3 (1.8-7.7); Neut % (Auto) 80.1 % (16.0-70.0); Platelet Count 264 th/mm3 (150-450); Red Blood Count 2.39 mil/mm3 (4.50-5.90); Red Cell Distribution Width 26.6 % (11.6-17.2); White Blood Count 10.1 th/mm3 (4.0-11.0)
[2017-10-09 05:36] LABS: Potassium 3.4 meq/L (3.5-5.1)
[2017-10-09 05:39] LABS: Calcium 8.1 mg/dL (8.5-10.1); Carbon Dioxide 28.5 meq/L (21.0-32.0)
[2017-10-09 06:25] LABS: Ovalocytes 1+
[2017-10-09] MEDS: Senna/Docusate Sodium 8.6/50 MG Tablet PO SCH (08:33)
--- NOTE | 2017-10-09 09:45 | P.PNIM ---
Subjective Interval history: Follow-up symptomatic anemia and chronic kidney disease. Patient seen and examined, lying in bed comfortably no apparent distress. Received dialysis treatment last evening. Was given 1 PRBC unit. Repeat hemoglobin 7.9. Will administer 1 more unit of PRBC with Lasix. Spoke to nephrology, okay to discharge after unit of blood. No acute events overnight. Vital signs stable. Afebrile. Physical Exam Vital signs: Vital Signs 10/08/17 10:10 10/08/17 12:00 10/08/17 16:00 Temperature 96.4 F L 98.1 F 96.9 F L Pulse Rate 85 87 Respiratory Rate 20 20 Blood Pressure 103/65 124/62 101/55 L Pulse Oximetry 99 100 10/08/17 17:51 10/08/17 20:00 10/08/17 21:10 Temperature 97 F L Pulse Rate 107 H Respiratory Rate 20 Blood Pressure 122/66 132/67 Pulse Oximetry 98 99 98 10/09/17 00:00 10/09/17 09:00 Temperature 98.3 F 98.5 F Pulse Rate 84 90 Respiratory Rate 20 14 Blood Pressure 100/58 L 123/57 L Pulse Oximetry 99 98 Intake & Output 10/08/17 10/09/17 10/09/17 18:59 06:59 18:59 Intake Total 0 / 0 120 / 120 Output Total 3000 / 3000 0 / 0 Balance -3000 / -3000 120 / 120 Weight 102.9 kg 102.8 kg Intake: Oral 120 / 120 Intake (Blood Product) Amt 0 / 0 Rbc As-3 Leukoreduced Unit 0 / 0 [id number] Output: Urine 0 / 0 Hemodialysis Amount 3000 / 3000 Other: Date of Last Bowel Movement 10/08/17 10/08/17 Weight On Admission 102.9 kg Narrative: GENERAL: Well-developed, well-nourished patient in [facility]. SKIN: Warm and dry. No rash. Pale. HEAD: Normocephalic. Atraumatic. EYES: Pupils equal and round. No scleral icterus. No injection or drainage. Right eye blood, improving. ENT: No nasal bleeding or discharge. Mucous membranes pink and moist. NECK: Supple. Trachea midline. Right chest dialysis cath. CARDIOVASCULAR: Regular rate and rhythm. S1, S2 noted. No murmur appreciated. RESPIRATORY: No accessory muscle use. Clear to auscultation. Breath sounds equal bilaterally. GASTROINTESTINAL: Abdomen soft, non-tender, nondistended. Normoactive bowel sounds x4. MUSCULOSKELETAL: No obvious deformities. Extremities without clubbing, cyanosis , or edema. NEUROLOGICAL: Awake and alert. No obvious cranial nerve deficits. Motor grossly within normal limits. 5/5 muscle strength in bilateral upper and lower extremities. Normal speech. PSYCHIATRIC: Appropriate mood and affect; insight and judgment normal. Results - Labs CBC & Chem 7: 10/09/17 05:06 10/09/17 05:06 Laboratory Results - last 24 hr 10/08/17 10/08/17 10/09/17 16:21 16:28 05:06 CBC w Diff Slide review pending WBC 10.1 RBC 2.39 L Hgb 7.9 L Hct 23.5 L MCV 98.1 D MCH 33.2 MCHC 33.8 RDW 26.6 H Plt Count 264 MPV 8.8 Neut % (Auto) 80.1 H Lymph % (Auto) 9.2 [place] % (Auto) 8.0 Eos % (Auto) 2.3 Baso % (Auto) 0.4 Neut # (Auto) 8.2 H Lymph # (Auto) 0.9 L [place] # (Auto) 0.8 Eos # (Auto) 0.2 Baso # (Auto) 0.0 WBC Differential . Diff Scan Auto diff confirmed Differential Comment . Basophilic Stippling Ct Tech Spherocytes Ct Tech Ovalocytes 1+ H Sodium Potassium Chloride Carbon Dioxide Anion Gap BUN Creatinine Estimated GFR Random Glucose Calcium MTS Gel Crossmatch See Detail See Detail 10/09/17 10/09/17 05:06 09:22 CBC w Diff WBC RBC Hgb Hct MCV MCH MCHC RDW Plt Count MPV Neut % (Auto) Lymph % (Auto) [place] % (Auto) Eos % (Auto) Baso % (Auto) Neut # (Auto) Lymph # (Auto) [place] # (Auto) Eos # (Auto) Baso # (Auto) WBC Differential Diff Scan Differential Comment Basophilic Stippling Spherocytes Ovalocytes Sodium 142 Potassium 3.4 L Chloride 104 Carbon Dioxide 28.5 Anion Gap 10 BUN 23 H Creatinine 3.60 H Estimated GFR 17 L Random Glucose 97 Calcium 8.1 L MTS Gel Crossmatch See Detail Assessment and Plan - Assessment (1) Anemia Code(s): D64.9 - Anemia, unspecified Status: Acute Plan: - Consult placed to nephrology, underwent dialysis treatment today as well as 1 unit PRBC transfusion last evening. - Hemoglobin 7.6 on presentation. Now 7.9. Will monitor H&H. - Likely secondary to chronic anemia and iron deficiency anemia. No active bleeding. - Patient does chronically take Epogen and iron infusions during dialysis treatments. Defer to nephrology. - Allow renal diet. -We will administer 1 more unit of PRBC. With Lasix IV. Discharge after transfusion. (2) Dialysis patient Code(s): Z99.2 - Dependence on renal dialysis Status: Acute Plan: Friday treatments. Nephrology following. - Plan Discharge Planning: Plan for discharge home after blood transfusion. (1) Anemia Qualifiers: Anemia type: due to chronic kidney disease
--- NOTE | 2017-10-09 11:06 | P.DIET ---
Nutritional Evaluation Type of nutrition evaluation: initial Nutrition screening: Weight Loss > 10 lbs Subjective Subjective Comments: Pt says he had a recent hospital admission w/a 28-lb wt loss. Pt says "the wt loss wasnt a bad thing". Pt reports his appetite is good. Objective - Diagnosis Symptomatic Anemia/Dialysis - Objective % IBW: 147 (IBW = 154-lb(66kg)) Body Weight Used for Calculations: IBW Energy Needs - Lower Range (kCal/kg): 30 Energy Needs - Upper Range (kCal/kg): 33 Lower Limit kCal/kg (kCals): 1,977 Upper Limit kCal/kg (kCals): 2,310 Lower Limit Protein Factor (Grams per Kg): 1.3 Upper Limit Protein Factor (Grams per Kg): 1.5 Lower Protein Needs (Protein): 86 Upper Protein Needs (Protein): 99 Dietitian Reviewed in Medical Record: Current diet, Curent medications, Intake & Output, Labs, Medical history Diet Order: 2gNa Oral Diet Intake Amount: Good 75-90% Objective Comments: PMH Includes: Aortic Stenosis, Ischemic heart disease, high cholesterol, HTN, HI , COPD, Chronic amemia, ESRD on HD Labs Include: BUN 23, Creatinine 3.60, est GFR 17, Glucose 97 Meds Include: Lactulose, Zofran Assessment Assessment: Pt is at nutritional risk r/t recent unintentional wt loss and ESRD w/need for HD. Adequate po intake. Send Nepro QD for additional nutrition(= 425 kcal and 19g Protein). Labs reviewed. Dietitian will follow. Recommendations: 1.Send Nepro QD for additional nutrition 2.Dietitian will follow Dietitian to Monitor: Lab values, Electrolytes, Renal labs, Supplement acceptance, Intake & Output, Weight change, PO Intake
--- NOTE | 2017-10-09 15:23 | P.PNNP ---
Subjective Interval history: Patient is alert, getting blood transfusion, mild SOB, no chest pain. Physical Exam Vital signs: Vital Signs 10/08/17 16:00 10/08/17 17:51 10/08/17 20:00 Temperature 96.9 F L 97 F L Pulse Rate 107 H Respiratory Rate 20 20 Blood Pressure 101/55 L 122/66 132/67 Pulse Oximetry 100 98 99 10/08/17 21:10 10/09/17 00:00 10/09/17 09:00 Temperature 98.3 F 98.5 F Pulse Rate 84 90 Respiratory Rate 20 14 Blood Pressure 100/58 L 123/57 L Pulse Oximetry 98 99 98 10/09/17 10:57 10/09/17 11:00 10/09/17 11:15 Temperature 96.9 F L 97.9 F 97.9 F Pulse Rate 82 81 Respiratory Rate 18 18 18 Blood Pressure 128/64 128/64 116/71 Pulse Oximetry 10/09/17 12:15 10/09/17 14:23 10/09/17 14:29 Temperature 96.6 F L 98.9 F Pulse Rate 86 Respiratory Rate 18 18 Blood Pressure 135/71 136/77 Pulse Oximetry 99 97 Intake & Output 10/08/17 10/09/17 10/09/17 18:59 06:59 18:59 Intake Total 0 / 0 520 / 520 350 / 350 Output Total 3000 / 3000 0 / 0 Balance -3000 / -3000 520 / 520 350 / 350 Weight 102.9 kg 102.8 kg Intake: Oral 120 / 120 Intake (Blood Product) Amt 0 / 0 400 / 400 350 / 350 Rbc As-3 Leukoreduced Unit 0 / 0 400 / 400 [id number] Rbc As-3 Leukoreduced Unit 350 / 350 [id number] Output: Urine 0 / 0 Hemodialysis Amount 3000 / 3000 Other: Date of Last Bowel Movement 10/08/17 10/08/17 10/08/17 Weight On Admission 102.9 kg - Constitutional no acute distress - Routine HEENT Exam Head: Present: normocephalic - Routine Neck Exam Present: supple - Routine Respiratory Exam Present: decreased breath sounds, CTA bilaterally, rhonchi - Routine Cardiovascular Exam Present: RRR, S1, S2 - Routine Abdominal Exam Present: soft, normoactive bowel sounds - Routine Neurological Exam Present: alert, oriented X3 Assessment and Plan - Plan 1. Anemia with recurrent blood transfusion. 2. End-stage renal disease, on hemodialysis. 3. History of hypertension. 4. Chronic obstructive pulmonary disease. 5. Congestive heart failure. 6. Hyperlipidemia. The patient has been on hemodialysis Friday, Friday and Friday. He had his last hemodialysis done yesterday. Has Chronic Anemia, GI work up done as out patient. Given 1 unit PRBC with HD yesterday. One unit now, Lasix with transfusion. Possible D/C and follow up with Dr. Shah as out patient.
== END 2017-10-09 16:05 | disposition home or self-care (01) ==
LOC: PHED 06:31 → PH3 06:31 → PHEDA 08:07 → INTOOBSV 08:07 → PH3 09:20
PROVIDERS: ADMIT Hospitalist; ATTEND Hospitalist

== ENCOUNTER 2017-10-22 10:22 | Inpatient (IN) ==
[2017-10-22] MEDS ORDERED: [UNRECOGNIZED DRUG - REMARK] OTHER SCH (10:30)
[2017-10-22] MEDS ORDERED: Protamine Sulfate Inj 50 MG/5 ML Vial ONE (10:37)
[2017-10-22] MEDS ORDERED: Heparin 10,000 UNITS/10 ML Vial (for IV use) ONE (10:37)
[2017-10-22] MEDS ORDERED: Mupirocin 2% Nasal Oint Topical Syringe EACH NARE SCH (11:30)
[2017-10-22] MEDS ORDERED: Aspirin 325 MG Tablet PO SCH (11:30)
[2017-10-22] MEDS ORDERED: Metoprolol Tartrate 25 MG Tablet PO SCH (11:30)
[2017-10-22] MEDS ORDERED: Sod Chloride 0.9% Inj 1,000 ML IV.CONT SCH (11:30)
[2017-10-22] MEDS ORDERED: Chlorhexidine Gluconate 2% 1 Pack (2 Cloths) TOPICAL SCH ×2 (11:30)
[2017-10-22] MEDS ORDERED: Succinylcholine Inj 100 MG/5 ML Syringe IV.PUSH ONE (12:00)
[2017-10-22] MEDS ORDERED: Sodium Chlor 0.9% Inj 500 ML IV.SIG SCH (12:00)
[2017-10-22] MEDS ORDERED: Glycopyrrolate Inj 1 MG/5 ML Syringe IV.PUSH ONE (12:00)
[2017-10-22] MEDS ORDERED: ceFAZolin 2 GM Premix Inj 2 GM/50 ML PIGGYBACK IV.SIG SCH (12:00)
[2017-10-22] MEDS ORDERED: Neostigmine Inj 5 MG/5 ML Syringe IV.PUSH ONE (12:00)
[2017-10-22] MEDS ORDERED: Phenylephrine/NS 1000 MCG/10ML Syringe IV.PUSH ONE ×2 (12:00)
[2017-10-22] MEDS ORDERED: Lidocaine PF 1% Inj 5 ML Syringe INFILTRATN ONE ×2 (12:00)
[2017-10-22] MEDS ORDERED: Sodium Chlor 0.9% Inj 1,000 ML IV.SIG ONE (12:00)
[2017-10-22] MEDS ORDERED: Heparin - SQ 10,000 UNITS/ML Vial ONE (12:17)
[2017-10-22 12:37] LABS: Potassium 3.9 meq/L (3.5-5.1)
[2017-10-22 12:51] LABS: Carbon Dioxide 26.8 meq/L (21.0-32.0)
[2017-10-22 12:53] LABS: Calcium 8.8 mg/dL (8.5-10.1)
--- NOTE | 2017-10-22 14:15 | MH ---
cc: Roldan Pryor MD DATE OF ADMISSION: 10/22/2017 INDICATION: Aortic valve stenosis. HISTORY OF PRESENT ILLNESS: This is a 72-year-old female who follows with Dr. Tidwell in the outpatient setting, has known history of severe aortic valve stenosis, had recently had a prolonged hospitalization, at which time, he was undergoing dialysis but had severe anemia requiring transfusion. He underwent extensive workup with GI including colonoscopy and endoscopy, which ultimately showed gastritis. He was discharged and scheduled now for elective transcatheter aortic valve replacement for severe aortic valve stenosis. At the time of his last hospitalization, he had an elevated troponin, likely demand mediated secondary to his anemia, underwent diagnostic coronary angiography which revealed severe bifurcation LAD disease and underwent bare metal stent to the left anterior descending coronary artery. PAST MEDICAL HISTORY: Hypertension, COPD, end-stage kidney disease, aortic insufficiency/aortic stenosis, hypertension, morbid obesity, obstructive sleep apnea, spinal stenosis. CURRENT MEDICATIONS: 1. Amlodipine. 2. Atorvastatin. 3. Losartan. 4. Metoprolol. 5. Tylenol. FAMILY HISTORY: Denies any family history of early coronary disease or sudden cardiac . SOCIAL HISTORY: He smokes a pack a day and drinks about 2 glasses of wine or whiskey a day. REVIEW OF SYSTEMS: A 12-point review of systems was performed, negative unless otherwise in history of present illness. PHYSICAL EXAMINATION: VITAL SIGNS: Temperature 98, pulse 76, blood pressure 132/79 mmHg. GENERAL: Alert and oriented x3, no acute distress. HEENT: Shows pupils reactive to accommodation. Extraocular movements are intact. NECK: No elevation jugular venous distention. No thyromegaly or lymphadenopathy. No carotid bruits. LUNGS: Clear to auscultation bilaterally. CARDIOVASCULAR: Regular rhythm, 3/6 crescendo-decrescendo murmur at the right upper sternal border. ABDOMEN: Nontender, nondistended with good bowel sounds. No hepatosplenomegaly. EXTREMITIES: Show no clubbing, cyanosis or edema. Good peripheral pulses. NEUROLOGIC: Cranial nerves intact. Motor and sensory grossly intact. LABORATORY DATA: Sodium 143, potassium 3.9, BUN 39, creatinine is 5.16. Preoperative workup; STS score 11.0%. [place] [employer] functional class 3/4. BMI 33. ADLs 3/4 frail. Electrocardiogram shows sinus rhythm, some ST-T wave abnormality. Pulmonary function test normal. Echocardiogram performed on 09/06/2017 shows jet velocity 4.28 meters per second with a mean gradient 43 mmHg and calculated aortic valve area of 0.7 cm2. Ejection fraction 60%. There is moderate aortic insufficiency, moderate mitral regurgitation and mild tricuspid regurgitation. Cardiac catheterization from 09/01/2017 shows proximal left anterior descending coronary artery stenosis, status post percutaneous intervention. Computer tomography analysis on 09/01/2017 short annulus diameter 19.6 mm, long annulus diameter 28.7 mm, with a perimeter of 76.4 mm. The sinus of Valsalva 31.2 mm, sinotubular junction 28.2 mm, left coronary height 13 mm, right coronary at 15.3 mm. Iliac artery minimal luminal diameter on the right is 8.7 mm, on the left 6.9 mm. ASSESSMENT: Severe aortic valve stenosis. PLAN: The patient was evaluated by both Dr. Peralta and Dr. Cordova and felt to be high risk for surgical aortic valve replacement due to comorbidities and frailty. Risks, benefits, alternatives were discussed with the patient for consideration of transcatheter aortic valve replacement. We will plan for an implantation of bioprosthetic Medtronic 29 mm Evolut Pro from a right common femoral artery approach. The patient will have dialysis coordinated postprocedure. MD OMID Velazquez/lh/ll , 01:09 PM , 01:20 PM
[2017-10-22] MEDS: Iohexol 300 MG/ML 50 ML Vial (for Rad Diag) IVCONTRAST ONE ×2 (14:25→14:26)
--- NOTE | 2017-10-22 14:51 | ECG ---
Date Performed: 10/22/2017 Time Performed: 11:07:08 PTAGE: 72 years EKG: Sinus rhythm . Inferior infarct - age undetermined Abnormal ECG Compared to prior electrocardiogram, Nonspecific S T segment changes appear to have resolved. PREVIOUS TRACING : 09/04/2017 09.16 DOCTOR: Tomi Plaza Interpretating Date/Time 10/22/2017 14:50:42
[2017-10-22] MEDS ORDERED: Iohexol 300 MG/ML 50 ML Vial (for Rad Diag) IVCONTRAST ONE (15:00)
[2017-10-22] MEDS ORDERED: fentaNYL Citrate Inj 100 MCG/2 ML Ampul ONE ×2 (15:09)
--- NOTE | 2017-10-22 15:20 | P.OP ---
Date of procedure: 10/22/17 Anesthesia: GETA Surgeon: Adolfo Peralta MD Operation and Findings: PREOPERATIVE DIAGNOSIS: 1. Severe Symptomatic Aortic stenosis. 2. CHF 3. Moderate aortic Insufficiency 4. CAD - s/p PCI POSTOPERATIVE DIAGNOSIS: Same OPERATION PERFORMED: 1. Transcatheter Aortic Valve Replacement (TAVR) with a Medtronic 29 mm Evolut Pro Tissue Valve. 2. Balloon Aortic Valvuloplasty 3. Aortogram. 4. Percutaneous Left Femoral Vein Access and Bilateral Common Femoral Artery Access 5. Perclose (x2) closure of Right Common Femoral artery. 6. Vascade closure of Left Common Femoral Artery and Vein. 7. Fluoroscopy SURGEON: Adolfo Peralta MD CO-SURGEON: Roldan Pryor MD FARO DEALER SURGEON: None FOSTER CARE CASE MANAGER: SHANAE Dunbar MD ANESTHESIA: GETA PROCEDURE: The risks, benefits, complications, treatment options, and expected outcomes were discussed with the patient. The possibilities of reaction to medication, pulmonary aspiration, perforation of viscus, bleeding, recurrent infection, the need for additional procedures, failure to diagnose a condition, and creating a complication requiring transfusion or operation were discussed with the patient. The patient concurred with the proposed plan, giving informed consent. The site of surgery properly noted/marked. The patient was taken to the hybrid operating room and the procedure verified as Transcatheter Aortic Valve Replacement. A Time Out was held and the above information confirmed. Standard monitoring lines and Cedillo catheter were placed. General anesthesia was induced. The patient was prepped and draped in a sterile fashion. Initially, the left femoral arterial and venous access was acquired using a Seldinger percutaneous technique. The details of this procedure were dictated under separate note by cardiology. Once a pigtail was positioned in the aortic annulus and a temporary transvenous pacemaker wire was placed in the right ventricular apex and tested, the right femoral artery was accessed using a needle followed by a guidewire under fluoroscopic guidance. The patient was heparinized and two Perclose devices deployed at a 45 degree angle for later closure. Serial dilators were used to dilate the left femoral artery to 16 Uzbek caliber. The Medtronic sheath was then inserted into the external iliac artery up to the distal abdominal aorta. Arch aortography was performed to define the implant view. Balloon aortic valvuloplasty was performed using a 22 x 4 [place]-amador balloon. A 29 mm Medtronic Evolut Pro transcatheter aortic valve was then positioned in the annulus and deployed with the patient being rapidly paced. Following deployment, the valve apparatus was withdrawn and arch aortography and SHOAIB were performed to assess the valve. The valve had trace perivalvular leak. Gradients were then measured and the sheath was removed with securing the Perclose sutures for hemostasis. Protamine was administered. The left arterial and Venous access sites were closed using the Vascade device. Sterile dressings were placed. At the end of the operation, all sponge, instruments, and needle counts were correct. The patient was transferred to the CVICU in stable condition. Findings: Trace PVL Implants: 29 Evolut Pro Medtronic Valve Complications: None Disposition: CVICU in stable condition
[2017-10-22] MEDS ORDERED: Sod Chloride 0.9% Inj 1,000 ML OTHER PRN ×2 (16:15)
[2017-10-22] MEDS ORDERED: Heparin 10,000 UNITS/10 ML Vial (for IV use) OTHER PRN ×2 (16:15)
[2017-10-22] MEDS ORDERED: Albumin Human 25% Inj 100 ML IV.SIG PRN (16:15)
[2017-10-22] MEDS ORDERED: Acetaminophen 325 MG Tablet PO PRN (16:15)
[2017-10-22] MEDS ORDERED: Gelatin 12 MM/7 MM Topical Foam TOPICAL PRN (16:15)
[2017-10-22] MEDS ORDERED: Sod Chloride 0.9% Inj 1,000 ML IV.CONT PRN (16:15)
--- NOTE | 2017-10-22 16:45 | P.CONNP ---
History of Present Illness Service: Nephrology Consult date: 10/22/17 Requesting Physician: Adolfo Peralta Reason for Consult: End-stage renal disease on hemodialysis Primary Care Provider: PROVIDER NON STAFF Family Provider: PROVIDER NON STAFF Chief Complaint: TAVR placement History of Present Illness: Patient is a 72-year-old white male with a history of end-stage renal disease due to hypertension, aortic valve stenosis, coronary artery disease who had been admitted for TAVR, he goes for dialysis on Friday, Friday and Friday, patient had arrhythmia and will require pacemaker placement as well. He denies any chest pain or shortness of breath. Review of Systems Constitutional: Reports fatigue Eyes: Denies blind spots, Denies blurry vision, Denies bulging eyes, Denies change in vision, Denies double vision, Denies discharge, Denies dry eyes, Denies floaters, Denies irritation, Denies itchy eyes, Denies loss of vision, Denies pain, Denies requires corrective lenses, Denies sensitivity to light, Denies other Ears, Nose, Mouth, and Throat: Denies abnormal hearing, Denies bleeding gums, Denies bad breath, Denies change in voice, Denies dental pain, Denies difficulty swallowing, Denies dizziness, Denies dry mouth, Denies ear discharge , Denies ear pain, Denies facial pain, Denies headache(s), Denies hearing loss, Denies hoarseness, Denies lip swelling, Denies nosebleed, Denies mouth lesions, Denies mouth pain, Denies nasal congestion, Denies nasal discharge, Denies nasal obstruction, Denies nasal trauma, Denies neck lump, Denies neck pain, Denies nose pain, Denies pain with swallowing, Denies poor balance, Denies post nasal drip, Denies ringing in the ears, Denies sinus pain, Denies sinus pressure , Denies sore throat, Denies throat swelling, Denies tongue swelling, Denies other Respiratory: Denies change in phlegm color, Denies chest congestion, Denies cough, Denies coughing up blood, Denies excessive phlegm production, Denies pain on inspiration, Denies pain with cough, Denies shortness of breath, Denies shortness of breath with activity, Denies snoring, Denies stridor, Denies wheezing, Denies other Gastrointestinal: Denies abdominal pain, Denies belching, Denies black, tarry stools, Denies bloating, Denies bright, red blood in stools, Denies change in bowel habits, Denies constant urge to pass stool, Denies change in stools, Denies coffee ground vomit, Denies constipation, Denies cramping, Denies difficulty swallowing, Denies excessive passing of gas, Denies feeling full early, Denies heartburn, Denies incontinent of stools, Denies loose stools, Denies nausea, Denies pain with swallowing, Denies vomiting, Denies vomiting blood, Denies other Genitourinary: Reports other (On hemodialysis) Musculoskeletal: Reports back pain Neurologic: Denies abnormal hearing, Denies abnormal movements, Denies abnormal speech, Denies abnormal walking, Denies behavioral changes, Denies burning sensations, Denies confusion, Denies dizziness, Denies fainting, Denies frequent falls, Denies headache(s), Denies lack of coordination, Denies localized weakness, Denies loss of vision, Denies memory loss, Denies numbness, Denies other visual disturbances, Denies radiating pain, Denies restless legs, Denies convulsions, Denies seizure-like activity, Denies sensory deficit, Denies tingling, Denies tingling/numbness/burning sensations, Denies tremor(s), Denies unsteadiness, Denies weakness, Denies other PMFSH - History History Provided By: Patient - Medical History Medical History: Medical History (Last Reviewed 10/23/17 @ 08:45 by Stuart Morales) Afib (Acute) CAD (coronary artery disease) (Acute) History of renal dialysis (Acute) COPD (chronic obstructive pulmonary disease) (Acute) High cholesterol (Acute) Aortic stenosis (Acute) Myocardial infarct (Acute) CKD (chronic kidney disease) (Acute) HTN (hypertension) (Acute) Renal failure (Acute) - Surgical History Surgical History: Surgical History (Last Reviewed 10/23/17 @ 08:45 by Stuart Morales) H/O heart artery stent History of appendectomy History of carpal tunnel release Hx of tonsillectomy Status post insertion of dialysis catheter - Family History Family History: Family History (Last Updated 10/08/17 @ 12:21 by Jesi Arredondo) Other No significant family history - Tobacco History Second Hand Smoke Exposure: Yes Tobacco Use In Past 30 Days: Yes Smoking Status: Heavy tobacco smoker Tobacco Type: Cigarettes - Alcohol History How Often Do You Have a Drink Containing Alcohol: 4 or more times a week - Substance Use History Substance History: No History of Abuse Medications and Allergies Active Medications: Active Medications Acetaminophen (Tylenol) 650 mg PO UNSCH PRN PRN Reason: SEE LABEL COMMENTS Aspirin (Aspirin) 325 mg PO [facility] Stop: 10/25/17 11:23 Last Admin: 10/22/17 12:00 Dose: 325 mg Aspirin (Ecotrin) 81 mg PO DAILY [facility] Chlorhexidine Gluconate (Chlorhexidine 2% Cloth) 3 pack TOPICAL [facility] [employer] Stop: 10/25/17 11:23 Chlorhexidine Gluconate (Chlorhexidine 2% Cloth) 3 pack [facility]ICAL [facility] [employer] Stop: 10/25/17 11:26 Clonidine HCl (Catapres) 0.1 mg PO UNSCH PRN PRN Reason: SEE LABEL COMMENTS Clopidogrel Bisulfate (Plavix) 75 mg PO DAILY [facility] Diphenhydramine HCl (Benadryl) 25 mg PO UNSCH PRN PRN Reason: SEE LABEL COMMENTS Epoetin [place] (Epogen Inj) 4,000 unit IV.PUSH UNSCH PRN PRN Reason: SEE LABEL COMMENTS Gelatin (Gelfoam 12 Mm/7 Mm Topical) 1 foam TOPICAL PRN PRN PRN Reason: help stop bleeding from site Gentamicin Sulfate (Gentamicin Inj) 20 mg OTHER WITH DIALYSIS PRN PRN Reason: Dwell Gentamycin Lock Heparin Sodium (Porcine) (Heparin Inj) 8,000 units OTHER WITH DIALYSIS PRN PRN Reason: for machine prime Heparin Sodium (Porcine) (Heparin Inj) 1,000 units OTHER WITH DIALYSIS PRN PRN Reason: Dwell Heparin to Fill Catheter Cefazolin Sodium/Dextrose (Ancef 2 Gm Premix Inj) 2 gm in 50 mls @ 100 mls/hr IV.SIG ONCE [facility] Stop: 10/25/17 11:23 Last Admin: 10/22/17 13:35 Dose: 100 mls/hr Sodium Chloride (Ns Inj) 500 mls @ 30 mls/hr IV.SIG .Q10H [facility] Stop: 10/25/17 11:26 Albumin Human (Flexbumin 25% Inj) 100 mls @ 60 mls/hr IV.SIG WITH DIALYSIS PRN PRN Reason: hypotension / volume replace Sodium Chloride (Ns Inj) 1,000 mls @ 0 mls/hr OTHER .Q0M PRN PRN Reason: for prime and rinse back Sodium Chloride (Ns Inj) 1,000 mls @ 0 mls/hr IV.CONT .Q0M PRN PRN Reason: hypotension / volume replace Sodium Chloride (Ns Inj) 1,000 mls @ 200 mls/hr OTHER .Q5H PRN PRN Reason: for dialyzer flush PRN Mannitol (Mannitol Inj) 12.5 gm IV.PUSH UNSCH PRN PRN Reason: hypotension / volume replace Metoprolol Tartrate (Lopressor) 25 mg PO [facility] Stop: 10/25/17 11:26 Mupirocin (Bactroban 2% Nasal Oint) 1 applicatio EACH NARE [facility] [employer] Stop: 10/25/17 11:23 Nitroglycerin (Nitrostat Sl) 0.4 mg SL Q5M PRN PRN Reason: CHEST PAIN Ondansetron HCl (Zofran Inj) 4 mg IV.PUSH UNSCH PRN PRN Reason: NAUSEA OR VOMITING Povidone Iodine (Betadine 5% Antisepsis Kit) 1 applicatio [facility] Stop: 10/25/17 11:23 Povidone Iodine (Betadine 5% Antisepsis Kit) 1 applicatio EACH NARE [facility] [employer] Stop: 10/25/17 11:26 Sodium Chloride (Ns Flush) 5 ml IV.FLUSH PRN PRN PRN Reason: flush each lumen during HD Allergies Allergy/AdvReac Type Severity Reaction Status Date / Time No Known Allergies Allergy Verified 10/22/17 11:24 Home Medications Medication Instructions Recorded Confirmed Type amiodarone 200 mg PO DAILY 10/22/17 10/22/17 History aspirin [Aspir-81] 81 mg PO DAILY 10/22/17 10/22/17 History atorvastatin 80 mg PO DAILY 10/22/17 10/22/17 History calcium acetate 667 mg PO BID 10/22/17 10/22/17 History cholecalciferol (vitamin D3) 400 unit PO DAILY 10/22/17 10/22/17 History [Vitamin D3] clopidogrel 75 mg PO DAILY 10/22/17 10/22/17 History furosemide 40 mg PO DAILY 10/22/17 10/22/17 History metoprolol succinate 50 mg PO DAILY 10/22/17 10/22/17 History multivitamin 1 tab PO DAILY 10/22/17 10/22/17 History Exam Vital signs: Vital Signs 10/22/17 11:18 10/22/17 15:00 10/22/17 16:10 Temperature 98.2 F 97.5 F L Pulse Rate 76 74 Respiratory Rate 18 18 Blood Pressure 132/79 158/50 H Pulse Oximetry 96 97 96 Intake & Output 10/21/17 10/22/17 10/22/17 18:59 06:59 18:59 Intake Total 900 / 900 Output Total 310 / 310 Balance 590 / 590 Weight 102.5 kg Intake: Anesthesia Amount 900 / 900 Output: Urine 300 / 300 Estimated Blood Loss Other: Weight On Admission 102.5 kg - Constitutional no acute distress - Routine HEENT Exam Head: Present: normocephalic, atraumatic Eye: Present: EOMI, PERRL - Routine Neck Exam Present: supple - Routine Respiratory Exam Present: CTA bilaterally - Routine Cardiovascular Exam Present: S1, S2, bradycardia - Routine Abdominal Exam Present: soft, normoactive bowel sounds - Routine Extremities Exam Present: edema - Routine Neurological Exam Present: alert (None), oriented X3 Results - Lab Results 10/22/17 11:40 Most recent lab results Calcium 8.8 mg/dL (8.5-10.1) 10/22/17 11:40 Assessment and Plan - Assessment (1) End stage renal disease on dialysis Code(s): N18.6 - End stage renal disease; Z99.2 - Dependence on renal dialysis Status: Acute (2) Aortic stenosis Code(s): I35.0 - Nonrheumatic aortic (valve) stenosis Status: Acute (3) HTN (hypertension) Code(s): I10 - Essential (primary) hypertension Status: Acute - Plan Patient is on dialysis however he is going for pacemaker insertion and we can do dialysis in the morning He will subsequently require dialysis again on Friday This was discussed with the patient Continue to monitor his blood work
--- NOTE | 2017-10-22 17:58 | P.CON ---
History of Present Illness Service: critical care medicine Consult date: 10/22/17 Requesting Physician: Roldan Pryor Reason for Consult: perioperative management of medical comorbidities Primary Care Provider: PROVIDER NON STAFF Family Provider: PROVIDER NON STAFF Chief Complaint: TAVR placement History of Present Illness: This is a 72yM with ESRD on HD who presents for trans-catheter aortic valve replacement. He underwent the procedure via groin access, complicated by perioperative 3rd degree AVB. he arrives to the CVICU extubated in stable condition, arousing from anesthesia. due to his somnolence, a complete ROS is unobtainable. limited ROS is negative for sore throat, headache, chest pain, SOB. Review of Systems All other systems reviewed negative except as stated in HPI (limited by arousal from anesth) PMFSH - History History Provided By: Patient - Medical History Medical History: Medical History (Last Updated 10/22/17 @ 11:29 by Mamta Sher) Afib (Acute) CAD (coronary artery disease) (Acute) History of renal dialysis (Acute) COPD (chronic obstructive pulmonary disease) (Acute) High cholesterol (Acute) Aortic stenosis (Acute) Myocardial infarct (Acute) CKD (chronic kidney disease) (Acute) HTN (hypertension) (Acute) Renal failure (Acute) - Surgical History Surgical History: Surgical History (Last Reviewed 10/22/17 @ 11:29 by Mamta Sher) H/O heart artery stent History of appendectomy History of carpal tunnel release Hx of tonsillectomy Status post insertion of dialysis catheter - Family History Family History: Family History (Last Updated 10/08/17 @ 12:21 by Jesi Arredondo) Other No significant family history - Tobacco History Second Hand Smoke Exposure: Yes Tobacco Use In Past 30 Days: Yes Smoking Status: Heavy tobacco smoker Tobacco Type: Cigarettes - Alcohol History How Often Do You Have a Drink Containing Alcohol: 4 or more times a week - Substance Use History Substance History: No History of Abuse Medications and Allergies Active Medications: Active Medications Acetaminophen (Tylenol) 650 mg PO UNSCH PRN PRN Reason: SEE LABEL COMMENTS Aspirin (Aspirin) 325 mg PO AG [employer]QUIPMENT FIELD SERVICE TECHNICIAN [facility] Stop: 10/25/17 11:23 Last Admin: 10/22/17 12:00 Dose: 325 mg Aspirin (Ecotrin) 81 mg PO DAILY [facility] Chlorhexidine Gluconate (Chlorhexidine 2% Cloth) 3 pack TOPICAL AG EQUIPMENT FIELD SERVICE TECHNICIAN [facility] Stop: 10/25/17 11:23 Chlorhexidine Gluconate (Chlorhexidine 2% Cloth) 3 pack TOPICAL AG EQUIPMENT FIELD SERVICE TECHNICIAN [facility] Stop: 10/25/17 11:26 Clonidine HCl (Catapres) 0.1 mg PO UNSCH PRN PRN Reason: SEE LABEL COMMENTS Clopidogrel Bisulfate (Plavix) 75 mg PO DAILY [facility] Diphenhydramine HCl (Benadryl) 25 mg PO UNSCH PRN PRN Reason: SEE LABEL COMMENTS Epoetin [place] (Epogen Inj) 4,000 unit IV.PUSH UNSCH PRN PRN Reason: SEE LABEL COMMENTS Gelatin (Gelfoam 12 Mm/7 Mm Topical) 1 foam TOPICAL PRN PRN PRN Reason: help stop bleeding from site Gentamicin Sulfate (Gentamicin Inj) 20 mg OTHER WITH DIALYSIS PRN PRN Reason: Dwell Gentamycin Lock Heparin Sodium (Porcine) (Heparin Inj) 8,000 units OTHER WITH DIALYSIS PRN PRN Reason: for machine prime Heparin Sodium (Porcine) (Heparin Inj) 1,000 units OTHER WITH DIALYSIS PRN PRN Reason: Dwell Heparin to Fill Catheter Cefazolin Sodium/Dextrose (Ancef 2 Gm Premix Inj) 2 gm in 50 mls @ 100 mls/hr IV.SIG ONCE [facility] Stop: 10/25/17 11:23 Last Infusion: 10/22/17 16:41 Dose: Infused Sodium Chloride (Ns Inj) 500 mls @ 30 mls/hr IV.SIG .Q10H [facility] Stop: 10/25/17 11:26 Albumin Human (Flexbumin 25% Inj) 100 mls @ 60 mls/hr IV.SIG WITH DIALYSIS PRN PRN Reason: hypotension / volume replace Sodium Chloride (Ns Inj) 1,000 mls @ 0 mls/hr OTHER .Q0M PRN PRN Reason: for prime and rinse back Sodium Chloride (Ns Inj) 1,000 mls @ 0 mls/hr IV.CONT .Q0M PRN PRN Reason: hypotension / volume replace Sodium Chloride (Ns Inj) 1,000 mls @ 200 mls/hr OTHER .Q5H PRN PRN Reason: for dialyzer flush PRN Mannitol (Mannitol Inj) 12.5 gm IV.PUSH UNSCH PRN PRN Reason: hypotension / volume replace Metoprolol Tartrate (Lopressor) 25 mg PO AG EQUIPMENT FIELD SERVICE TECHNICIAN [facility] Stop: 10/25/17 11:26 Mupirocin (Bactroban 2% Nasal Oint) 1 applicatio EACH NARE AG [employer]QUIPMENT FIELD SERVICE TECHNICIAN [facility] Stop: 10/25/17 11:23 Nitroglycerin (Nitrostat Sl) 0.4 mg SL Q5M PRN PRN Reason: CHEST PAIN Ondansetron HCl (Zofran Inj) 4 mg IV.PUSH UNSCH PRN PRN Reason: NAUSEA OR VOMITING Povidone Iodine (Betadine 5% Antisepsis Kit) 1 applicatio TOPICAL AG [employer]IP[employer] FIELD SERVICE TECHNICIAN [facility] Stop: 10/25/17 11:23 Povidone Iodine (Betadine 5% Antisepsis Kit) 1 applicatio EACH NARE AG EQUIPMENT FIELD SERVICE TECHNICIAN [facility] Stop: 10/25/17 11:26 Sodium Chloride (Ns Flush) 5 ml IV.FLUSH PRN PRN PRN Reason: flush each lumen during HD Allergies Allergy/AdvReac Type Severity Reaction Status Date / Time No Known Allergies Allergy Verified 10/22/17 11:24 Home Medications Medication Instructions Recorded Confirmed Type amiodarone 200 mg PO DAILY 10/22/17 10/22/17 History aspirin [Aspir-81] 81 mg PO DAILY 10/22/17 10/22/17 History atorvastatin 80 mg PO DAILY 10/22/17 10/22/17 History calcium acetate 667 mg PO BID 10/22/17 10/22/17 History cholecalciferol (vitamin D3) 400 unit PO DAILY 10/22/17 10/22/17 History [Vitamin D3] clopidogrel 75 mg PO DAILY 10/22/17 10/22/17 History furosemide 40 mg PO DAILY 10/22/17 10/22/17 History metoprolol succinate 50 mg PO DAILY 10/22/17 10/22/17 History multivitamin 1 tab PO DAILY 10/22/17 10/22/17 History Physical Exam Vital signs: Vital Signs 10/22/17 11:18 10/22/17 15:00 10/22/17 16:10 Temperature 36.8 C 36.4 C L Pulse Rate 76 74 Respiratory Rate 18 18 Blood Pressure 132/79 158/50 H Pulse Oximetry 96 97 96 Intake & Output 10/21/17 10/22/17 10/22/17 18:59 06:59 18:59 Intake Total 950 / 950 Output Total 310 / 310 Balance 640 / 640 Weight 102.5 kg Intake: IV 50 / 50 Ancef 2 GM Premix Inj 2 gm In 50 / 50 50 ml @ 100 mls/hr IV.SIG ONCE [facility] Rx#:[id number] Anesthesia Amount 900 / 900 Output: Urine 300 / 300 Estimated Blood Loss 10 / 10 Other: Weight On Admission 102.5 kg Narrative: GENERAL: Elderly male, lying in bed, arousing from anesthesia HEENT: Normocephalic. Atraumatic. Pupils equal, round, reactive, conjugate. Mucous membranes are moist NECK: Trachea is midline. There is no JVD. right IJ introducer sheath with transvenous pacer in place, site is clean and dry, dressing intact. CHEST: unlabored. equal chest rise. nc o2. CARDIOVASCULAR: normal rate of 71, regular rhythm. Transvenous pacer is set VVI at a backup rate of 50. not currently paced. ABDOMEN: Soft, nontender, nondistended. No guarding. MUSCULOSKELETAL: Pulses 2+. No peripheral edema. bilateral groin sites are clean and dry, no evidence of hematoma, dressing intact. distal LE pulses are Dopplerable. NEUROLOGICAL: RASS -2. Arousing from anesthesia. follows commands. moves all extremities. no focal deficits. - Urinary Catheter Management Indwelling Temp Sensing Catheter Cath placed during this visit: yes Reason for continuing: Hourly intake/output Insertion date: 10/22/17 Insertion time: 13:05 Assessment and Plan - Plan Assessment: 72yM POD 0 s/p TAVR via groin access. complicated by perioperative 3rd degree AVB. admit to ICU for close monitoring. s/p TAVR 10/22 via iliac access - anticoagulation per Dr. Pryor - mivf - EP consult, plan for PPM perioperative 3rd degree HB - EP consult, plan for PPM ESRD on HD - consult nephrology - plan for early AM HD HTN - add back po antihypertensives as needed - goal sbp < 180 COPD MADAN - prn nebs - wean fio2 for goal spo2 > 90% - OOB after flat time - aggressive pulmonary toilet morbid obesity - advance diet after flat time
--- NOTE | 2017-10-22 18:00 | P.PCN ---
Date of procedure: 10/22/17 Pre-op diagnosis: Severe aortic stenosis Post-op diagnosis: same Procedure: Procedure: Transesophageal Echocardiography Diagnosis: Severe aortic stenosis Indications: Need for perioperative planning for transcatheter aortic valve replacement Consent: Obtained from the patient Anesthesia: General endotracheal anesthesia Description of the Procedure: The patient was sedated and mechanically ventilated. The echo probe was inserted easily and without resistance. At the conclusion of the procedure, the echo probe was removed. Please see detailed echocardiogram report for formal findings. Preliminary Findings (not confirmed): pre-procedure: 1) grossly preserved biventricular function 2) severe aortic stenosis 3) moderate aortic insufficiency 4) moderate mitral regurgitation 5) no evidence of intra-atrial shunting by color flow Doppler 6) no pericardial effusion post-procedure: 1) s/p successful placement of transcatheter aortic valve 2) no evidence of bioprosthetic valve stenosis 3) trivial perivalvular leak 4) no pericardial effusion The patient tolerated the procedure well with no hemodynamic instability. There were no immediate complications noted. There was minimal EBL. I personally performed the procedure.
[2017-10-22] MEDS ORDERED: Magnesium Oxide 400 MG Tablet PO PRN (18:02)
[2017-10-22] MEDS ORDERED: Potassium Chlor 40 mEq Premix 40 MEQ/100 ML PIGGYBACK IV.SIG PRN ×2 (18:02)
[2017-10-22] MEDS ORDERED: Sodium Phosphate Inj 30 MMOL in Sodium Chlor 0.9% Inj 250 ML IV.SIG PRN (18:02)
[2017-10-22] MEDS ORDERED: Magnesium Sulfate Inj 2 GM in Sodium Chlor 0.9% Inj 96 ML IV.SIG PRN (18:02)
[2017-10-22] MEDS ORDERED: Potassium Chlor 20 mEq Premix 20 MEQ/100 ML PIGGYBACK IV.SIG PRN ×2 (18:02)
[2017-10-22] MEDS ORDERED: Potassium Chloride 25 MEQ Effervescent Tablet PO PRN (18:02)
[2017-10-22] MEDS ORDERED: Potassium Phosphate Inj 30 MMOL in Sodium Chlor 0.9% Inj 250 ML IV.SIG PRN (18:02)
[2017-10-22] MEDS ORDERED: Potassium Phosphate 500 MG Soluble Tablet PO PRN ×2 (18:02)
[2017-10-22] MEDS ORDERED: Magnesium Sulfate Inj 4 GM in Sodium Chlor 0.9% Inj 92 ML IV.SIG PRN (18:02)
[2017-10-22] MEDS ORDERED: Calcium Acetate 667 MG Capsule PO SCH (18:30)
--- NOTE | 2017-10-22 18:32 | MA ---
cc: Roldan Pryor MD DATE: 10/22/2017 ASSEMBLER GOLD FRAME: Roldan Pryor MD, [facility]. PRIMARY SURGEON: Adolfo Peralta MD. PROCEDURES PERFORMED: 1. Fluoroscopy with interpretation. 2. Left heart catheterization. 3. Ascending aortography. 4. Transesophageal echocardiography. 5. Temporary transvenous pacemaker placement. 6. Aortic valvuloplasty. 7. Transcatheter aortic valve replacement with bioprosthetic valve. METHOD: Risks, benefits, and alternatives discussed with the patient. The patient understood and consented to the procedure. The patient was brought to the catheterization lab, placed on the catheterization table. Bilateral groins were prepped and draped. Left groin was anesthetized with 2% lidocaine. The left common femoral artery and vein were accessed and a 5-Czech 11 cm sheath was placed without difficulty. Right common femoral artery was accessed and an 8-Czech 11 cm sheath was placed without difficulty. This was upsized over a dilator to a 16-Czech sheath. Two Perclose devices were deployed. TEMPORARY TRANSVENOUS PACEMAKER PLACEMENT: A temporary transvenous pacemaker was advanced to the right internal jugular vein to the right ventricular apex. Also, appropriate capture and pacing was confirmed. TRANSESOPHAGEAL ECHOCARDIOGRAPHY: Please see separate detailed report. ASCENDING AORTOGRAPHY: Ascending aortography was performed in a right anterior oblique cranial view. Ascending aorta mildly dilated. All 3 aortic cusps were visualized and put in Parallax. AORTIC VALVULOPLASTY: Heparin was administered throughout entire procedure to maintain appropriate anticoagulation. A 6-Czech AL catheter was advanced to ascending aorta. An Amplatz straight-tipped wire was then advanced across the aortic valve without difficulty. AL-1 catheter advanced into the left ventricle. J-wire was advanced to the apex of the left ventricle and the AL-1 catheter removed. A Confida ForwardMetricstronic wire was advanced to the left ventricular apex and the pigtail removed. A 22 mm True Flow balloon was then advanced to the ascending aorta under rapid pacing. Aortic valvuloplasty was performed. Repeat transesophageal echocardiogram showed now moderate to severe aortic regurgitation. TRANSCATHETER AORTIC VALVE REPLACEMENT: A Medtronic 29 mm Evolut device was prepped. The device was advanced to ascending aorta. The bioprosthetic valve was then deployed, under fluoroscopic and angiographic guidance with good placement. Repeat transesophageal echocardiogram showed good deployment with no significant gradient or regurgitation. The right groin was closed with 2 Perclose devices. Left groins were both closed with Vascade devices. INTRAOPERATIVE POST TRANSCATHETER AORTIC VALVE REPLACEMENT TRANSESOPHAGEAL ECHOCARDIOGRAM: Aortic valve area 1.7 cm2, mean gradient 7 mmHg peak velocity 2.03 meters/second, and there is trivial perivalvular aortic insufficiency. CONCLUSION: 1. Successful transcatheter aortic valve replacement with bioprosthetic mechanical 29 mm Evolut aortic valve. 2. Successful utilization of a temporary transvenous pacemaker. PLAN: The patient tolerated the procedure well. The patient did have transient complete heart block requiring temporary transvenous pacemaker utilization. RECOMMENDATIONS: We will consult Dr. Haro, electrophysiology, for consideration of permanent pacemaker. We will monitor both groins for any bleeding complications. Initiate aggressive medical therapy. MD OMID Velazquez/rd/ll , 03:07 PM , 03:16 PM
--- NOTE | 2017-10-22 18:44 | ECG ---
Date Performed: 10/22/2017 Time Performed: 15:29:08 PTAGE: 72 years EKG: Baseline artifact present Sinus rhythm Left bundle branch block Abnormal ECG Compared to prior electrocardiogram, left bundle branch block is present. PREVIOUS TRACING : 10/22/2017 11.07 DOCTOR: Tomi Plaza Interpretating Date/Time 10/22/2017 18:42:01
[2017-10-22] MEDS ORDERED: Sodium Chlor 0.9% Inj 250 ML ONE (19:43)
--- NOTE | 2017-10-22 20:48 | P.PCNCA ---
Dual PPM Implantation - Dual PPM Implantation Procedure Date: 10/22/17 Dual PPM Implantation: PROCEDURE: Dual chamber permanent pacemaker implantation. INDICATIONS FOR PROCEDURE: Dayday Ward is a 72-year-old M, SP TAVR, complete AV b;ock, new LBBB referred for pacer insertion. The risks, the nature, and the benefit of the procedure were clearly stated to the patient. The risks include pneumothorax, cardiac perforation, stroke and even . The patient understood and agreed to proceed. PROCEDURE After written informed consent was obtained, the patient was transferred to the EP lab and was prepped and draped in the usual sterile fashion. Conscious sedation was initiated and maintained throughout the procedure by the anesthesiologist. Once sedation was verified, the left infraclavicular area was with 2% Xylocaine. Using modified Seldinger technique, the left subclavian vein was cannulated on two occasions and two guidewires were advanced. Then, using a #11 blade scalpel, a 2 cm was made two fingerbreadths below the left clavicle. This incision was then taken down through the deep fascial layer using Bovie cautery and blunt dissection. Into the inferomedial direction, device pocket was dissected, then the wire was dissected into the pocket. A 2- 0 Vicryl suture was placed around the wire to prevent backbleeding. At this point, over the lateral wire, an 7-Niuean dilator and introducer was advanced. As the dilator and wire were removed, an active fixation right ventricular pacing and sensing lead was advanced. After adequate pacing and sensing thresholds were obtained, the lead was secured in the pocket using 2-0 Ethibond suture. Then, over the remaining wire, an 7-Niuean dilator and introducer was advanced. As the dilator and wire were removed, an active fixation right atrial pacing and sensing lead was advanced. After adequate pacing and sensing thresholds were obtained, the lead was secured into the pocket using 2-0 Ethibond suture. At that point, the pocket was copiously irrigated using antibiotic solution. This was connected to the generator and placed into the pocket. I did proceed with wound closure. The deep fascial layer was approximated using 2-0 Vicryl suture in a continuous fashion. The subcutaneous layer was approximated with 2-0 Vicryl suture in a continuous fashion. The subcuticular layer was approximated with 2-0 Vicryl suture in a continuous fashion. Dermabond adhesive was applied to the wound followed by sterile pressure dressing. There was no complication. The patient tolerated procedure. Blood loss minimal. IMPLANTED HARDWARE The permanent pacemaker is a Langhar. Model #W1DR01, serial number [id number]. The right atrial pacing and sensing lead is a Medtronic model number 4076-52 , serial number [id number]. The right ventricular pacing and sensing lead is a Medtronic model number 4076- 58, serial number [id number]. THRESHOLDS The right atrial pacing threshold in the bipolar mode was 1.5V @ 0.5 milliseconds, lead impedance 776 ohms and P-wave at 4.7 millivolts. The right ventricular pacing threshold in the bipolar mode was 1.0V @ 0.5 milliseconds, lead impedance 1534 ohms and R-wave at the 21 millivolts. SETTINGS The device was set in the DDD60, upper limit 120 beats per minute. Hysteresis and mode switch are on. CONCLUSIONS: Successful permanent pacemaker implantation. COMMENT AND RECOMMENDATION The patient will be transferred to the telemetry unit and will be observed. Further decision by the managing team.
--- NOTE | 2017-10-22 20:57 | CATHPROC ---
[employer] HIS Report Study Information Study Number Admission Scheduled Start Study Start [id number] Oct 22 2017 10:22AM 10/22/2017 Oct 22 2017 7:17PM [place] Service Cardiac Pacer/ICD Admit Source Facility Department Other [facility] - Senior Application Programmer Physician and Clinical Staff Initial Annabelle Ignacio Pecan Huller Almita Seth,RT(R) TECH2 Pecan Huller Yusra Wright RN Other Anesthesia, BUYING INTERN Recorder Almita Seth,RT(R) TECH2 Scrub Ascencion BrianRT(R) Procedures Performed Procedure Lead Insertion Equipment Time Client Application Support Specialist Description Size Mfg Part Number Used/Scraped DERMABOND, ADHESIVE SKIN [id number] 19:19 CORDIS/PACER * Used GLUE MINI *[id number] 19:19 Partender BLANKET,WARM AIR CCL * Used *[id number] 19:19 Partender SUTURE, STRIP PLUS 1/2" * Used *[id number] 19:19 [employer]UM [employer] PACER LOZANO, LIMB * 2530 *[id number] Used [id number] 19:19 [employer]UM [employer] PACER PACK, PACER CUSTOM * Used *[id number] 19:57 [employer] PACER SAFE SHEATH, FR9, 13CM FR 9 [id number] Used 19:57 [employer] MEDICAL PACER SAFE SHEATH, FR9, 13CM FR 9 CLS-1009 Used 20:01 Needle Sponge Count 2 22 Used 20:01 Needle Sponge Count 20 200 Used 20:01 Needle Sponge Count 4 4 Used SUTURE, 0 ETHIBOND [CT1] (CX21D), 8pk SUTURE, 2-0 VICRYL [CT1] ([id number]) SUTURE, 2-0 VICRYL [CT1] (BFJ661N) [place] PAD, ELECTROSURGICAL 19:19 * [id number] *[id number] Used SURGICAL GROUNDING ORANGE LEAD, CAPSURE FIX NOVUS, 4076-52CM 20:21 VITATRON [employer] 52CM Used 52CM *[id number] LEAD, CAPSURE FIX NOVUS, 4076-58CM 20:17 [employer] 58CM Used 58CM *[id number] 20:25 [employer] PACEMAKER, RICKEY XT DR [id number] [id number] Used [id number] 19:19 [employer] EMILY. / * Used *[id number] Equipment Model, Serial, Lot Number and Expiration Data Description Model Number Serial Number Lot Number Expiration Date LEAD, CAPSURE FIX NOVUS, 52CM 4076-52 [id number] 06-08-2019 LEAD, CAPSURE FIX KEMARUS, 58CM 4076-58 [id number] 07-15-2019 PACEMAKER, RICKEY XT [id number] 03-13-2019 History: Allergies Allergy Reaction No Known Allergies none History: Risk Factors Hypertension Dyslipidemia Previous TX Yes Yes Yes Chronic Lung Disease Labs Hgb (g/dl) Hct (%) RBC (MIL/MM3) WBC (l/cumm) Platelets (thousands) 11.60-17.00 35.00-51.00 4.00-5.90 4.00-11.00 150.00-450.00 10.0 31 3.3 9.9 249 Glucose (mg/dl) BUN (mg/dl) Creatinine (mg/dl) BUN:Creatinine (1:x) 74.00-106.00 7.00-18.00 0.50-1.30 10.00-20.00 96 39 5.1 7.6 Na (meq/l) K (meq/l) 136.00-145.00 3.50-5.10 143 3.9 INR (PTT:PT) 0.90-1.10 1 Medication Medication Total Dose (Bolus/Oral) Medication Total Dosage/Unit 2% XYLOCAINE 50 mL Medications (Bolus/Oral) Medication Time Given Dosage/Unit Administered By Reason 2% XYLOCAINE 10/22/2017 8:14:43 PM 50 mL Annabelle Haro 50 mL 2% XYLOCAINE given in lab by Annabelle Haro via Subcutaneous. Medication (Drip) Medication Time Given Dosage/Unit Concentration/Unit Diluent (ml) Solution VANCOMYCIN DRIP 10/22/2017 7:41:20 PM 1 g 1 g VANCOMYCIN DRIP given in lab by Anesthesia, BUYING INTERN via Peripheral IV. Reason: As per physicians dorothy bal order. Final Case Assessment Cardiovascular HR Rhythm NIBP Chest Pain 70 paced 115/49 0 Edema Present Skin color Skin None Normal Warm Dry Neurological State Oriented to time-place- Alert Moves all extremities person Respiration - General Respiration Rate SpO2 (%) (B/min) 18 96 Chronological Log Time Study Chronological Log 19:33:01 Patient arrived via Bed. 19:33:05 Patient Name, D.O.B, / Armband Verified By Ahsan.N. 19:33:07 Consent signed by the physician and the patient and verified by the Senior Application Programmer staff. 19:33:09 Pre-op and post- op instructions given; patient acknowledges understanding of instructions. 19:33:23 Anesthesia at bedside. Assumes care of patient. maria a 19:34:12 Verbal Stimulation=2 Physical Stimulation=2 Airway=2 Respiration=2 TOTAL=8. (0=absent, 1=li mited, 2=present) 19:35:34 Patient has been NPO for More than 6Hrs. 19:35:38 Skin Breakdown-RIJ noted with temp pacer in place. 19:35:42 Patient Warmer Placed on the Table. 19:35:47 Disposable Defibrillator Pads Placed On Patient. 19:35:51 Christopher Prominences Protected 19:39:54 A # 20 IV was noted in the Antecubital (left). Grade = 0 19:39:55 A # 20 IV was noted in the Antecubital (right). Grade = 0 19:39:57 History and physical on the chart or being dictated. 19:41:20 1 g VANCOMYCIN DRIP given in lab by Anesthesia, BUYING INTERN via Peripheral IV. Reason: As per phys icians verbal order. 19:55:36 Reference ECG taken 19:55:59 Table restraints applied according to hospital policy 19:56:00 Left Upper Chest Prepped Times Two. First Sponge And Instrument Count Done by ~STAFF~. 20:00:19 Hypo's: 4, Sponges: 20, Bovie/scratch: 2 Sutures: 10, Blades: 1, Instruments: 26, Syveck Patches: 0 20:02:17 Bovie ground pad applied to: right upper thigh 20:02:32 2% CHLORHEXIDINE GLUCONATE WASH AND NASAL SWIPE DONE PRIOR TO PROCEDURE. Time Out. Correct patient, procedure, procedure equipment, site and side verified with physicia n present. Time 20:12:01 concurred by MD, individual staff and BUYING INTERN. Time Out #2 - Consents verified, patient in correct position, all results are labled and displa yed, safety precautions 20:12:06 taken, antibiotics administered. Time out concurred by MD, individual staff and BUYING INTERN in procedu re 20:12:09 Case Start 20:14:43 50 mL 2% XYLOCAINE given in lab by Annabelle Haro via Subcutaneous. 20:14:49 Vascular access was obtained in the Subclav. Vein (Lft. 20:14:54 Wire inserted 20:14:55 Vascular access was obtained in the Subclav. Vein (Lft. 20:14:56 Wire inserted 20:15:05 Surgical Incision Made. 20:15:06 A pocket was created at the L Upper Chest. 20:22:42 A SAFE SHEATH, FR9, 13CM FR 9 was advanced into the Subclav. Vein (Lft using the Percutaneo us technique. 20:22:52 A LEAD, CAPSURE FIX NOVUS, 58CM 58CM was inserted and positioned in the RV. 20:23:22 Lead placement verified under fluoroscopy 20:23:23 The RV lead impedance and threshold being tested. 20:23:24 The RV lead was sutured to the fascia. 20:23:27 A SAFE SHEATH, FR9, 13CM FR 9 was advanced into the Subclav. Vein (Lft using the Percutane ous technique. 20:23:36 A LEAD, CAPSURE FIX NOVUS, 52CM 52CM was inserted and positioned in the RA. 20:23:43 Lead placement verified under fluoroscopy 20:23:47 The Atrial lead impedance and threshold is being tested. 20:23:49 The Atrial lead was sutured to the fascia. 20:28:58 A PACEMAKER, RICKEY XT DR QAE-DDDR was connected and placed in the pocket. 20:29:20 Implant Procedure was performed. 20:29:27 A PPM Implant . (Dual) 20:29:59 Pocket flushed with antibiotic solution Second Sponge And Instrument Count Done by Yusra Wright RN. 20:30:13 Hypo's: 4, Sponges: 20, Bovie/scratch: 2 Sutures: ~SUTURE~, Blades: 1, Instruments: ~INSTRU~, Syveck Patches: ~SYVECK PATCH~ 20:38:29 The pocket was closed. 20:38:33 The temp pacer was removed with no issues. 20:38:40 Case End (Physician broke scrub) 20:39:14 Bedside Report will be given. The Final Sponge And Instrument Count Done by Yusra Wright RN. 20:39:27 Hypo's: 4, Sponges: 20, Bovie/scratch: 2 Sutures: 10, Blades: 1, Instruments: 26, Syveck Patches: 0 20:39:39 A sling was placed on the affected arm. 20:40:13 Cine recording checked. 20:40:19 Sterile dressing applied to site 20:41:10 Implantable Device card placed in patient's chart. 20:41:13 Defibrillator and ground pads removed. Skin intact. 20:41:15 CVICU called. Spoke to [place] Assessment: Final Case, HR=70 BPM, Rhythm=paced, IECE=337/49 mmhg, Chest Pain=0, Edema=None, Color=Normal, Skin = Warm, Dry 20:45:46 Neurological: State=Alert, Ox3, YAN Respiration: Resp=18 B/min, SpO2=96 % 20:47:24 Patient moved to [facility] healther End Study - Contrast Media Used In Study Contrast Total Opened (mL) Total Used (mL) Total Wasted (mL) Unspecified 0 0 0 End Study - Maximum Contrast Load Max Contrast Load (mL) 100.5 End Study - Radiation Exposure Fluoro Time (minutes) 4.2 End Study - Patient Disposition Complications Transferred To No Critical Care Bed
--- NOTE | 2017-10-22 22:43 | XR ---
EXAM DATE: 10/22/2017 10:23 PM EDT AGE/SEX: 72 years / Male INDICATIONS: Post op pacemaker placement CLINICAL DATA: This is the patient's initial encounter. Patient reports that signs and symptoms have been present for 1 day and indicates a pain score of 7/10. MEDICAL/SURGICAL HISTORY: . Hypertension. Chronic obstructive pulmonary disease None. COMPARISON: [facility] [place]ST SINGLE AP, 09/04/2017. . FINDINGS: There is a pacing device in place from the left subclavian approach. There is a double-lumen catheter in place from the right internal jugular approach. The patient is mildly rotated towards the right. The heart size is within normal limits. The lungs appear grossly clear. A pneumothorax is not seen. T he pacing leads project over the right atrium and the right ventricular apex on this AP portable ches t x-ray. CONCLUSION: Left-sided pacemaker in good position. Double-lumen catheter in place from the right internal jugular approach with the tip overlying the SV C. Electronically signed by: Donaldo Garcia MD 10/22/2017 10:42 PM EDT
--- NOTE | 2017-10-23 05:50 | MB ---
cc: Annabelle Haro MD DATE: 10/22/2017 REASON FOR CONSULTATION: Status post complete AV block. HISTORY OF PRESENT ILLNESS: Mr. Alfredo is a 72-year-old gentleman with history of high blood pressure, hyperlipidemia, aortic stenosis, coronary artery disease, previous history of previously placed stent, status post transaortic valve replacement. During the procedure, developed complete AV block. The patient was on temporary pacemaker. Also, the patient developed new left bundle branch block. I was consulted for evaluation. The chart was reviewed. The patient was evaluated. ALLERGIES: NONE. FAMILY HISTORY: Noncontributory to his current medical condition. SOCIAL HISTORY: The patient is smoking and drinks a couple of glasses of wine a day. FAMILY HISTORY: Noncontributory to his current medical condition. MEDICATIONS: Prior to hospitalization, he was on metoprolol, losartan, atorvastatin, amlodipine. Currently, aspirin was added as well as Plavix. Ancef was given today. REVIEW OF SYSTEMS: The patient is feeling okay. No chest pain, no chest discomfort. PHYSICAL EXAMINATION: GENERAL: Alert, fully oriented. VITAL SIGNS: His blood pressure on evaluation 158/80, pulse 74, respiratory rate 18. CHEST: Right infraclavicular area with central line for dialysis. Right jugular area with central line with temporary pacemaker. LUNGS: Ventilated. CARDIOVASCULAR: S1, S2. Regular. ABDOMEN: Obese. No mass. EXTREMITIES: No edema. LABORATORY DATA: Electrocardiogram on hospitalization shows sinus rhythm. Diffuse ST changes. Postoperatively, the patient has a left bundle branch block and also patient V pacing intermittently due to complete AV block. Labs: Potassium 2.9, creatinine is 5.16. ASSESSMENT AND RECOMMENDATIONS: Mr. Ward has a complete AV block postoperatively. He was on pacing support during the procedure. Post-procedure, he came out with left bundle branch block with intermittent AV block. That was a sign of disease. This gentleman is going to need a permanent pacemaker. PLAN: The risks, the nature, and the benefits of the procedure are clearly stated to him. Risks include pneumothorax, cardiac perforation, stroke, and even . He understands and agrees to proceed. The procedure will be performed today. Further decisions about his management by the managing team. MD MARGUERITE Hernández/osvaldo/abimael , 08:08 PM , 08:17 PM
--- NOTE | 2017-10-23 07:26 | P.PNCC ---
Subjective Subjective Remarks/Hospital Course: Hospital Course: This is a 72yM with ESRD on HD who presents for trans-catheter aortic valve replacement. He underwent the procedure via groin access, complicated by perioperative 3rd degree AVB. he arrives to the CVICU extubated in stable condition, arousing from anesthesia. due to his somnolence, a complete ROS is unobtainable. limited ROS is negative for sore throat, headache, chest pain, SOB. Subjective: 10/23: doing well. PPM placed yesterday. up out of bed in a chair. on room air. only complaint is discomfort over the left shoulder from PPM implantation. Objective Vital Signs / I&O: Vital Signs 10/22/17 11:18 10/22/17 15:00 10/22/17 16:10 Temperature 36.8 C 36.4 C L Pulse Rate 76 74 Respiratory Rate 18 18 Blood Pressure 132/79 158/50 H Pulse Oximetry 96 97 96 10/22/17 19:00 10/22/17 21:00 10/23/17 00:00 Temperature 36.3 C L 36.7 C Pulse Rate 66 76 80 Respiratory Rate 16 16 Blood Pressure 140/52 L 132/55 L Pulse Oximetry 97 99 10/23/17 04:00 Temperature 36.8 C Pulse Rate 77 Respiratory Rate 18 Blood Pressure 119/51 L Pulse Oximetry 99 Intake & Output 10/22/17 10/23/17 10/23/17 18:59 06:59 18:59 Intake Total 950 / 950 640 / 640 Output Total 935 / 935 540 / 540 Balance 15 15 100 / 100 Weight 102.5 kg Intake: IV 50 / 50 Ancef 2 GM Premix Inj 2 gm In 50 / 50 50 ml @ 100 mls/hr IV.SIG ONCE CIARA Rx#:[id number] Oral 640 / 640 Anesthesia Amount 900 / 900 Output: Urine 300 / 300 Estimated Blood Loss 10 / 10 Urine Amount (Catheter) 625 / 625 540 / 540 Indwelling Temp Sensing 625 / 625 540 / 540 Catheter Other: # Bowel Movements 0 Weight On Admission 102.5 kg Result Diagrams: 10/22/17 11:40 Objective Remarks: GENERAL: Elderly male, sitting in a chair, no acute distress. HEENT: Normocephalic. Atraumatic. Pupils equal, round, reactive, conjugate. Mucous membranes are moist NECK: Trachea is midline. There is no JVD. CHEST: unlabored. equal chest rise. room air. left chest incision c/d/i. CARDIOVASCULAR: normal rate of 91, regular rhythm. not currently paced. ABDOMEN: Soft, nontender, nondistended. No guarding. MUSCULOSKELETAL: Pulses 2+. No peripheral edema. bilateral groin sites are clean and dry, no evidence of hematoma, dressing intact. distal LE pulses are Dopplerable. NEUROLOGICAL: RASS 0. follows commands. moves all extremities. no focal deficits. Assessment and Plan - Assessment and Plan Plan: Assessment: 72yM POD 1 s/p TAVR via groin access. also POD 1 s/p PPM placement. clinically improving. can transfer out of ICU. for HD today. s/p TAVR 10/22 via iliac access - anticoagulation per Dr. Pryor perioperative 3rd degree HB - EP consult, plan for PPM ESRD on HD - consult nephrology - plan for early AM HD HTN - add back po antihypertensives as needed - goal sbp < 180 COPD MADAN - prn nebs - wean fio2 for goal spo2 > 90% - aggressive pulmonary toilet morbid obesity - cardiac diet transfer out of ICU.
--- NOTE | 2017-10-23 07:28 | ECG ---
Date Performed: 10/23/2017 Time Performed: 05:00:06 PTAGE: 72 years EKG: Sinus rhythm Left bundle branch block Septal T wave changes are nonspecific Abnormal ECG Compared to prior electr ocardiogram, there is probably no significant change although I think placement of the lateral leads are different. Clinical correlation suggested. PREVIOUS TRACING : 10/22/2017 15.29 DOCTOR: Tomi Plaza Interpretating Date/Time 10/23/2017 07:27:53
--- NOTE | 2017-10-23 07:37 | P.DS ---
<Jordon Irving - Last Filed: 10/23/17 07:38> Date of admission: 10/22/17 10:22 Primary care physician: PROVIDER NON STAFF Attending physician on discharge: Roldan Pryor Anticipated date of discharge: 10/23/17 Brief History from admission: This is a 72-year-old female who follows with Dr. Tidwell in the outpatient setting, has known history of severe aortic valve stenosis, had recently had a prolonged hospitalization, at which time, he was undergoing dialysis but had severe anemia requiring transfusion. He underwent extensive workup with GI including colonoscopy and endoscopy, which ultimately showed gastritis. He was discharged and scheduled now for elective transcatheter aortic valve replacement for severe aortic valve stenosis. At the time of his last hospitalization, he had an elevated troponin, likely demand mediated secondary to his anemia, underwent diagnostic coronary angiography which revealed severe bifurcation LAD disease and underwent bare metal stent to the left anterior descending coronary artery. DS: Summary Hospital Course: Patient was admitted electively and had successful TAVR 10/22. Post procedure SHOAIB showed functioning valve. Patient did have transient heart block and LBBB during procedure which require permanent pacemaker by Dr. Haro 10/22. Otherwise the patient tolerated the procedure well. Patient's visual education director was consulted for dialysis 10/23. - Time Spent with Patient Total time spent providing and/or coordinating discharge services: Greater than 30 minutes - Quality: VTE Deep Vein Thrombosis/Pulmonary Embolism Present on Admission: No Exam Vital signs: Vital Signs 10/22/17 11:18 10/22/17 15:00 10/22/17 16:10 Temperature 98.2 F 97.5 F L Pulse Rate 76 74 Respiratory Rate 18 18 Blood Pressure 132/79 158/50 H Pulse Oximetry 96 97 96 10/22/17 19:00 10/22/17 21:00 10/23/17 00:00 Temperature 97.4 F L 98.0 F Pulse Rate 66 76 80 Respiratory Rate 16 16 Blood Pressure 140/52 L 132/55 L Pulse Oximetry 97 99 10/23/17 04:00 Temperature 98.2 F Pulse Rate 77 Respiratory Rate 18 Blood Pressure 119/51 L Pulse Oximetry 99 Intake & Output 10/22/17 10/23/17 10/23/17 18:59 06:59 18:59 Intake Total 950 / 950 640 / 640 Output Total 935 / 935 540 / 540 Balance 15 / 15 100 / 100 Weight 225 lb 15.581 oz Intake: IV 50 / 50 Ancef 2 GM Premix Inj 2 gm In 50 / 50 50 ml @ 100 mls/hr IV.SIG ONCE CIARA Rx#:[id number] Oral 640 / 640 Anesthesia Amount 900 / 900 Output: Urine 300 / 300 Estimated Blood Loss 10 / 10 Urine Amount (Catheter) 625 / 625 540 / 540 Indwelling Temp Sensing 625 / 625 540 / 540 Catheter Other: # Bowel Movements 0 Weight On Admission 225 lb 15.581 oz Narrative: GENERAL: Well-developed well-nourished. In no acute distress. NECK: No carotid bruits. No JVD. CARDIOVASCULAR: Regular rate and rhythm. [place] valve sounds with no murmur appreciated. Pacemaker pressure dressing on left chest wall. Bilateral groins with no swelling, ecchymosis. Distal pulses intact RESPIRATORY: No accessory muscle use. Clear to auscultation. Breath sounds equal bilaterally. MUSCULOSKELETAL: No clubbing or cyanosis. No edema. NEUROLOGICAL: Awake and alert. Normal speech. Results Procedures completed during hospitalization: TAVR 10/23/17 Permanent pacemaker placement 10/23/17 Labs on day of discharge: Labs from last 24 hours 10/22/17 10/22/17 11:40 10:57 Sodium 143 Potassium 3.9 D Chloride 109 H Carbon Dioxide 26.8 Anion Gap 7 BUN 39 H Creatinine 5.16 H Estimated GFR 11 L Random Glucose 96 Calcium 8.8 MTS Gel Crossmatch See Detail - Impressions ITS Impressions Chest X-Ray 10/22/17 00:00 CONCLUSION: <Roldan Pryor - Last Filed: 10/23/17 09:05> Date of admission: 10/22/17 10:22 Primary care physician: PROVIDER NON STAFF DS: Summary - Time Spent with Patient Total time spent providing and/or coordinating discharge services: Exam Vital signs: Vital Signs 10/22/17 11:18 10/22/17 15:00 10/22/17 16:10 Temperature 98.2 F 97.5 F L Pulse Rate 76 74 Respiratory Rate 18 18 Blood Pressure 132/79 158/50 H Pulse Oximetry 96 97 96 10/22/17 19:00 10/22/17 21:00 10/23/17 00:00 Temperature 97.4 F L 98.0 F Pulse Rate 66 76 80 Respiratory Rate 16 16 Blood Pressure 140/52 L 132/55 L Pulse Oximetry 97 99 10/23/17 04:00 10/23/17 07:00 10/23/17 08:00 Temperature 98.2 F 97.4 F L Pulse Rate 77 97 H 95 H Respiratory Rate 18 18 Blood Pressure 119/51 L 115/64 Pulse Oximetry 99 91 L Intake & Output 10/22/17 10/23/17 10/23/17 18:59 06:59 18:59 Intake Total 950 / 950 640 / 640 Output Total 935 / 935 540 / 540 Balance 15 100 / 100 Weight 102.5 kg Intake: IV 50 / 50 Ancef 2 GM Premix Inj 2 gm In 50 / 50 50 ml @ 100 mls/hr IV.SIG ONCE CIARA Rx#:[id number] Oral 640 / 640 Anesthesia Amount 900 / 900 Output: Urine 300 / 300 Estimated Blood Loss 10 / 10 Urine Amount (Catheter) 625 / 625 540 / 540 Indwelling Temp Sensing 625 / 625 540 / 540 Catheter Other: # Bowel Movements 0 Weight On Admission 102.5 kg Results Labs on day of discharge: Labs from last 24 hours 10/22/17 10/22/17 11:40 10:57 Sodium 143 Potassium 3.9 D Chloride 109 H Carbon Dioxide 26.8 Anion Gap 7 BUN 39 H Creatinine 5.16 H Estimated GFR 11 L Random Glucose 96 Calcium 8.8 MTS Gel Crossmatch See Detail - Impressions ITS Impressions Chest X-Ray 10/22/17 00:00 CONCLUSION: Discharge Plan - Discharge Order Discharge Orders: Discharge Order (Routine); Ordered 10/23/17 Ordered By: Roldan Pryor Cardiology Clear for Discharge (Routine); Ordered 10/23/17 Ordered By: Roldan Pryor - Discharge Details Anticipated Discharge Date: 10/23/17 - Physicians Team Primary Care Provider: NON STAFF,PROVIDER Attending Provider: Roldan Pryor Other Providers: Kelsy Cordova MD ; ; Gaurav Shah MD ; Radames Fulton MD ; Annabelle Haro MD - Rxs /Orders / Referrals /Forms Prescriptions: Continue amiodarone 200 mg Tablet 200 mg PO DAILY aspirin [Aspir-81] 81 mg Tablet,Delayed Release (Dr/Ec) 81 mg PO DAILY atorvastatin 80 mg Tablet 80 mg PO DAILY calcium acetate 667 mg Capsule 667 mg PO BID cholecalciferol (vitamin D3) [Vitamin D3] 400 unit Tablet 400 unit PO DAILY clopidogrel 75 mg Tablet 75 mg PO DAILY furosemide 40 mg Tablet 40 mg PO DAILY metoprolol succinate 50 mg Tablet Extended Release 24 Hr 50 mg PO DAILY multivitamin Tablet 1 tab PO DAILY Referrals: NON STAFF,PROVIDER [Primary Care Provider] - See Instructions
--- NOTE | 2017-10-23 08:42 | P.PNCA ---
Subjective Interval history: Feels a little better, but tired and achy this morning. Physical Exam Vital signs: Vital Signs 10/22/17 11:18 10/22/17 15:00 10/22/17 16:10 Temperature 98.2 F 97.5 F L Pulse Rate 76 74 Respiratory Rate 18 18 Blood Pressure 132/79 158/50 H Pulse Oximetry 96 97 96 10/22/17 19:00 10/22/17 21:00 10/23/17 00:00 Temperature 97.4 F L 98.0 F Pulse Rate 66 76 80 Respiratory Rate 16 16 Blood Pressure 140/52 L 132/55 L Pulse Oximetry 97 99 10/23/17 04:00 10/23/17 07:00 10/23/17 08:00 Temperature 98.2 F 97.4 F L Pulse Rate 77 97 H 95 H Respiratory Rate 18 18 Blood Pressure 119/51 L 115/64 Pulse Oximetry 99 91 L Intake & Output 10/22/17 10/23/17 10/23/17 18:59 06:59 18:59 Intake Total 950 / 950 640 / 640 Output Total 935 / 935 540 / 540 Balance 15 15 100 / 100 Weight 225 lb 15.581 oz Intake: IV 50 / 50 Ancef 2 GM Premix Inj 2 gm In 50 / 50 50 ml @ 100 mls/hr IV.SIG ONCE CIARA Rx#:[id number] Oral 640 / 640 Anesthesia Amount 900 / 900 Output: Urine 300 / 300 Estimated Blood Loss 10 / 10 Urine Amount (Catheter) 625 / 625 540 / 540 Indwelling Temp Sensing 625 / 625 540 / 540 Catheter Other: # Bowel Movements 0 Weight On Admission 225 lb 15.581 oz - Constitutional no acute distress - Routine HEENT Exam Head: Present: normocephalic ENT: Present: mucous membranes moist - Routine Neck Exam Present: supple - Routine Respiratory Exam Present: diminished air movement - Routine Cardiovascular Exam Present: RRR - Routine Abdominal Exam Present: soft (Total collection) - Routine Skin Exam Comments: Left chest wall site well approximated without erythema or drainage. - Routine Neurological Exam Present: alert, oriented X3 - Detailed Neurological Exam: Coma Scale Eye Opening: Spontaneous - Routine Psychiatric Exam Present: normal affect - Urinary Catheter Management Indwelling Temp Sensing Catheter Cath placed during this visit: yes, but has since been removed by the nurse Reason for continuing: Decision to DC catheter Insertion date: 10/22/17 Insertion time: 13:05 Removal date: 10/23/17 Removal time: 06:00 Assessment and Plan - Assessment (1) Bradyarrhythmia Code(s): I49.8 - Other specified cardiac arrhythmias Status: Acute - Plan Stable for discharge from EP standpoint status post insertion of permanent pacemaker. Medication review indicates Ancef ordered through 10/25. Give patient copy of Dr. Haro's permanent pacemaker discharge instructions prior to discharge, per my discussion with Dr. Haro.
[2017-10-23] MEDS ORDERED: Non-Formulary Drug (Multivitamin [Multivitamin] 1 TAB) PO SCH (09:00)
[2017-10-23] MEDS ORDERED: Amiodarone 200 MG Tablet PO SCH (09:00)
--- NOTE | 2017-10-23 11:12 | P.PNNP ---
Subjective Interval history: Patient is doing better status post pacemaker insertion and TAVR Physical Exam Vital signs: Vital Signs 10/22/17 11:18 10/22/17 15:00 10/22/17 16:10 Temperature 98.2 F 97.5 F L Pulse Rate 76 74 Respiratory Rate 18 18 Blood Pressure 132/79 158/50 H Pulse Oximetry 96 97 96 10/22/17 19:00 10/22/17 21:00 10/23/17 00:00 Temperature 97.4 F L 98.0 F Pulse Rate 66 76 80 Respiratory Rate 16 16 Blood Pressure 140/52 L 132/55 L Pulse Oximetry 97 99 10/23/17 04:00 10/23/17 07:00 10/23/17 08:00 Temperature 98.2 F 97.4 F L Pulse Rate 77 97 H 95 H Respiratory Rate 18 18 Blood Pressure 119/51 L 115/64 Pulse Oximetry 99 91 L Intake & Output 10/22/17 10/23/17 10/23/17 18:59 06:59 18:59 Intake Total 950 / 950 640 / 640 Output Total 935 / 935 540 / 540 Balance 15 / 100 / 100 Weight 102.5 kg Intake: IV 50 / 50 Ancef 2 GM Premix Inj 2 gm In 50 / 50 50 ml @ 100 mls/hr IV.SIG ONCE CIARA Rx#:[id number] Oral 640 / 640 Anesthesia Amount 900 / 900 Output: Urine 300 / 300 Estimated Blood Loss 10 / 10 Urine Amount (Catheter) 625 / 625 540 / 540 Indwelling Temp Sensing 625 / 625 540 / 540 Catheter Other: # Bowel Movements 0 Weight On Admission 102.5 kg - Constitutional no acute distress - Routine Respiratory Exam Present: CTA bilaterally - Routine Cardiovascular Exam Present: RRR - Routine Abdominal Exam Present: soft, normoactive bowel sounds - Routine Extremities Exam Present: full ROM - Routine Neurological Exam Present: alert, oriented X3 - Urinary Catheter Management Indwelling Temp Sensing Catheter Cath placed during this visit: yes, but has since been removed by the nurse Reason for continuing: Not indwelling catheter Insertion date: 10/22/17 Insertion time: 13:05 Removal date: 10/23/17 Removal time: 06:00 Assessment and Plan - Assessment (1) End stage renal disease on dialysis Code(s): N18.6 - End stage renal disease; Z99.2 - Dependence on renal dialysis Status: Acute (2) Aortic stenosis Code(s): I35.0 - Nonrheumatic aortic (valve) stenosis Status: Acute (3) HTN (hypertension) Code(s): I10 - Essential (primary) hypertension Status: Acute - Plan Patient is doing well post pacemaker insertion hemodialysis today shorter treatment Discharge home after follow-up as outpatient this was discussed with the patient
--- NOTE | 2017-10-23 12:36 | P.PNCV ---
- Note Subjective/Hospital Course: 72yM with ESRD on HD who presents for trans-catheter aortic valve replacement. He underwent the procedure via groin access, complicated by perioperative 3rd degree AVB./ s/p Dual chamber permanent pacemaker implantation 10/21 . 10/23 pt doing well , for dialysis this am , then possible dc home pt on room air Objective: Vital Signs - 24 hr 10/22/17 15:00 10/22/17 16:10 10/22/17 19:00 Temperature 97.5 F L Pulse Rate 74 66 Respiratory Rate 18 Blood Pressure 158/50 H Pulse Oximetry 97 96 10/22/17 21:00 10/23/17 00:00 10/23/17 04:00 Temperature 97.4 F L 98.0 F 98.2 F Pulse Rate 76 80 77 Respiratory Rate 16 16 18 Blood Pressure 140/52 L 132/55 L 119/51 L Pulse Oximetry 97 99 99 10/23/17 07:00 10/23/17 08:00 10/23/17 09:45 Temperature 97.4 F L Pulse Rate 97 H 95 H Respiratory Rate 18 Blood Pressure 115/64 Pulse Oximetry 91 L 98 10/23/17 11:00 10/23/17 11:32 Temperature 97.7 F Pulse Rate 85 85 Respiratory Rate 20 Blood Pressure 109/60 Pulse Oximetry 99 99 GENERAL: A&O x 3 SKIN: Warm and dry. incision left upper chest wall intact and well approximated bilateral groin dressing intact HEAD: Normocephalic. EYES: No scleral icterus. No injection or drainage. NECK: Supple, trachea midline. No JVD or lymphadenopathy. CARDIOVASCULAR: Regular rate and rhythm without murmurs, gallops, or rubs. RESPIRATORY: Breath sounds equal bilaterally. No accessory muscle use. GASTROINTESTINAL: Abdomen soft, non-tender, nondistended. MUSCULOSKELETAL: No cyanosis, or edema. BACK: Nontender without obvious deformity. No CVA tenderness. Labs: Laboratory Results - last 12 hr 10/22/17 10:57 MTS Gel Crossmatch See Detail Result Diagrams: 10/22/17 11:40 - Plan (1) S/P TAVR (transcatheter aortic valve replacement) Plan: w/p dual chamber pacer 1. Transcatheter Aortic Valve Replacement (TAVR) with a Medtronic 29 mm Evolut Pro Tissue Valve. 2. Balloon Aortic Valvuloplasty 3. Aortogram. 4. Percutaneous Left Femoral Vein Access and Bilateral Common Femoral Artery Access 5. Perclose (x2) closure of Right Common Femoral artery. 6. Vascade closure of Left Common Femoral Artery and Vein. 7. Fluoroscopy stable for dc from CVS standpoint after dialysis (2) Anemia (2) Anemia Qualifiers: Anemia type: due to chronic kidney disease
--- NOTE | 2017-10-23 15:03 | ECHRPT ---
Indication: S/P TAVR CONCLUSIONS Normal biventricular size and systolic function. Bioprosthetic aortic valve replacement (TAVR) BP: / HR: Rhythm: Sinus MEASUREMENTS (Male / Female) Normal Values Technical Quality:Very technically difficult study 2D ECHO LVOT Diameter 2.7 cm DOPPLER AV Peak Velocity 219.0 cm/s AV Peak Gradient 19.2 mmHg AV Mean Gradient 11.0 mmHg AV Velocity Time Integral 41.7 cm LVOT Peak Velocity 132.0 cm/s LVOT Peak Gradient 7.0 mmHg LVOT Velocity Time Integral 22.5 cm AV Area Cont Eq vti 3.1 cm AV Area Cont Eq pk 3.5 cm FINDINGS LEFT VENTRICLE Normal left ventricular size and wall thickness. The left ventricular systolic function is normal wi th an estimated ejection fraction in the range of 60-65%. Left ventricular diastolic function parameters a re normal. RIGHT VENTRICLE Normal right ventricular size and systolic function. LEFT ATRIUM The left atrial size is normal. RIGHT ATRIUM The right atrial size is normal. ATRIAL SEPTUM Normal atrial septal thickness without atrial level shunting by limited color doppler interrogation. AORTA The aortic root and proximal ascending aorta are normal in size on limited imaging. MITRAL VALVE Structurally normal mitral valve. No mitral valve stenosis or regurgitation. AORTIC VALVE Status-post percutaneous aortic valve replacement. No aortic valve stenosis. No aortic regurgitation. Aortic valve mean gradient is 11 mmHg. TRICUSPID VALVE Structurally normal tricuspid valve. No tricuspid valve stenosis or regurgitation. PULMONARY VALVE The pulmonary valve is not well visualized. VESSELS The inferior vena cava is normal in size. PERICARDIUM No pericardial effusion. Roldan Pryor MD, FACC (Electronically Signed) Final Date:23 October 2017 15:02
== END 2017-10-23 17:54 | disposition home health service (06) ==
LOC: HDIC 10:22 → HCVI 15:12
PROVIDERS: ADMIT Internal Medicine; ATTEND Internal Medicine
PROC: TAVRHYB (ICD-10-PCS; 2017-10-22 13:00)

== ENCOUNTER 2017-11-05 07:04 | Observation (INO) ==
[2017-11-05 07:15] VITALS: BP 146/64; O2SAT 99
--- NOTE | 2017-11-05 07:29 | ED ---
HPI General Chief complaint: Recheck/Abnormal Lab/Rx Stated complaint: Blood transfusion Time Seen by Provider: 11/05/17 07:16 Source: patient, RN notes reviewed and old records reviewed Mode of arrival: ambulatory History of Present Illness HPI narrative: 72yM sent in from [facility] dialysis for anemia. The patient has a history of anemia x 8 months with multiple previous transfusions, NE about 6 weeks ago with subsequent renal failure now on HD, TAVR and pacemaker insertion within the last month. He goes for outpatient HD , last dialyzed 2 days ago , but says that when he went today his hemoglobin was found to be 6.9 so he was sent to the ED for a blood transfusion. He admits to dyspnea on exertion but not at rest; denies fever or chills, lightheadedness, chest pain, cough, or palpitations. Patient has had extensive anemia workup, which began prior to onset of renal failure; he has had a negative endoscopy and colonoscopy, may need capsule endoscopy at some point in the future as per patient. He receives epogen and venofer infusions. Related Data Home Medications Medication Instructions Recorded Confirmed amiodarone 200 mg PO DAILY 10/22/17 10/22/17 aspirin [Aspir-81] 81 mg PO DAILY 10/22/17 10/22/17 atorvastatin 80 mg PO DAILY 10/22/17 10/22/17 calcium acetate 667 mg PO BID 10/22/17 10/22/17 cholecalciferol (vitamin D3) 400 unit PO DAILY 10/22/17 10/22/17 [Vitamin D3] clopidogrel 75 mg PO DAILY 10/22/17 10/22/17 furosemide 40 mg PO DAILY 10/22/17 10/22/17 metoprolol succinate 50 mg PO DAILY 10/22/17 10/22/17 multivitamin 1 tab PO DAILY 10/22/17 10/22/17 Allergies Allergy/AdvReac Type Severity Reaction Status Date / Time No Known Allergies Allergy Verified 10/22/17 11:24 Review of Systems ROS: all other systems reviewed are negative Constitutional Denies fever(s) Eyes Denies blurry vision ENT Denies nasal congestion Cardiovascular Denies chest pain Respiratory Reports dyspnea Gastrointestinal Denies nausea Genitourinary Comments: Still produces some urine, denies dysuria Musculoskeletal Denies back pain Neurologic Denies confusion Psychiatric Denies confusion PMFSH History History Provided By: Patient Medical History Medical History Afib (Acute) CAD (coronary artery disease) (Acute) History of renal dialysis (Acute) COPD (chronic obstructive pulmonary disease) (Acute) High cholesterol (Acute) Aortic stenosis (Acute) Myocardial infarct (Acute) CKD (chronic kidney disease) (Acute) HTN (hypertension) (Acute) Renal failure (Acute) HLD (hyperlipidemia) (Acute) Surgical History Surgical History H/O heart artery stent (Acute) History of appendectomy (Acute) History of carpal tunnel release (Acute) Hx of tonsillectomy (Acute) Status post insertion of dialysis catheter (Acute) Family History Family History Other No significant family history Social History Social History Substance History: No History of Abuse Second Hand Smoke Exposure: Yes Smoking Status: Current every day smoker Tobacco Type: Cigarettes How Often Do You Have a Drink Containing Alcohol: 4 or more times a week Recent Travel in [facility] within the Last 8 Weeks: No Recent Out of Country Travel within the Last 8 Weeks: No Exam Const General: healthy appearing and no acute distress HENAR Head: normocephalic and atraumatic Face and sinus: normal facial exam Eyes General: appearance normal, both eyes and all related structures Pupils: PERRL Chest Other: HD cath present in right upper chest Pacemaker present in left chest Resp Other: No tachypnea, normal work of breathing, diminished breath sounds at bases Cardio Rate: regular rate Heart Sounds: murmur GI Inspection: non-distended Palpation: soft and nontender Skin General: no rashes or lesions noted Neuro General: alert, awake, oriented x3 and no focal motor deficits Extrem Other: Trace lower extremity edema Psych Affect: normal affect Course Consultations Consultation #1: Case discussed with Dr. Shah, patient's employee counselor, who recommends transfusing 2U PRBCs and he will arrange for dialysis. The patient has significant recent heart disease and cannot tolerate lower hemoglobin. Time: 08:35 Initial Documented Vital Signs Temperature 98.4 F 11/05/17 07:11 Pulse Rate 102 H 11/05/17 07:11 Blood Pressure 146/64 H 11/05/17 07:11 Pulse Oximetry 99 11/05/17 07:11 Last Documented Vital Signs Temperature 98.4 F 11/05/17 07:11 Pulse Rate 102 H 11/05/17 07:11 Blood Pressure 146/64 H 11/05/17 07:11 Pulse Oximetry 99 11/05/17 07:11 Medical Decision Making MDM Narrative Medical decision making narrative: Assessment: 72yM presenting with anemia and dyspnea on exertion Plan: EKG and monitor Labs, including type & screen CXR Will d/w nephrology timing of transfusion and dialysis Addendum: Case discussed with Dr. Shah of nephrology and Dr. Coley of [facility]. This patient requires blood transfusion and dialysis. I informed the patient of this plan and consented him for transfusion (signed and in chart). An opportunity to ask questions was provided. Differential Diagnosis Differential Diagnosis: Differential diagnosis includes, but is not limited to: hyperkalemia, anemia, pleural effusion, pulmonary edema, arrhythmia Medical Records Medical records reviewed: Yes I reviewed the patient's medical records. Lab Data Lab results reviewed: Yes I reviewed the patient's lab results. Result diagrams: 11/05/17 07:30 11/05/17 07:30 Lab Results 11/05/17 11/05/17 11/05/17 Range/Units 07:30 07:30 07:30 WBC 8.9 (4.0-11.0) th/mm3 RBC 2.03 L (4.50-5.90) mil/mm3 Hgb 7.1 L (13.0-17.0) gm/dL Hct 21.2 L (39.0-51.0) % MCV 104.8 H (80.0-100.0) fL MCH 35.1 H (27.0-34.0) pg MCHC 33.5 (32.0-36.0) % RDW 24.5 H (11.6-17.2) % Plt Count 267 (150-450) th/mm3 MPV 8.7 (7.0-11.0) fL Neut % (Auto) 78.1 H (16.0-70.0) % Lymph % (Auto) 10.6 (9.0-44.0) % Marshall % (Auto) 8.7 H (0.0-8.0) % Eos % (Auto) 2.1 (0.0-4.0) % Baso % (Auto) 0.5 (0.0-2.0) % Neut # (Auto) 6.9 (1.8-7.7) th/mm3 Lymph # (Auto) 0.9 L (1.0-4.8) th/mm3 Marshall # (Auto) 0.8 (0.0-0.9) th/mm3 Eos # (Auto) 0.2 (0.0-0.4) th/mm3 Baso # (Auto) 0.0 (0.0-0.2) th/mm3 WBC Differential . Differential Comment Auto diff final Sodium 139 (136-145) meq/L Potassium 3.4 L (3.5-5.1) meq/L Chloride 103 (98-107) meq/L Carbon Dioxide 24.1 (21.0-32.0) meq/L Anion Gap 12 (5-15) meq/L BUN 61 H (7-18) mg/dL Creatinine 5.31 H (0.60-1.30) mg/dL Estimated GFR 11 L (>89) mL/min Random Glucose 115 H (74-106) mg/dL Calcium 10.1 (8.5-10.1) mg/dL Phosphorus 5.3 H (2.5-4.9) mg/dL Magnesium 2.9 H (1.5-2.5) mg/dL Blood Type A Positive Antibody Screen Negative MTS Gel Crossmatch 11/05/17 Range/Units 08:33 WBC (4.0-11.0) th/mm3 RBC (4.50-5.90) mil/mm3 Hgb (13.0-17.0) gm/dL Hct (39.0-51.0) % MCV (80.0-100.0) fL MCH (27.0-34.0) pg MCHC (32.0-36.0) % RDW (11.6-17.2) % Plt Count (150-450) th/mm3 MPV (7.0-11.0) fL Neut % (Auto) (16.0-70.0) % Lymph % (Auto) (9.0-44.0) % Marshall % (Auto) (0.0-8.0) % Eos % (Auto) (0.0-4.0) % Baso % (Auto) (0.0-2.0) % Neut # (Auto) (1.8-7.7) th/mm3 Lymph # (Auto) (1.0-4.8) th/mm3 Marshall # (Auto) (0.0-0.9) th/mm3 Eos # (Auto) (0.0-0.4) th/mm3 Baso # (Auto) (0.0-0.2) th/mm3 WBC Differential Differential Comment Sodium (136-145) meq/L Potassium (3.5-5.1) meq/L Chloride (98-107) meq/L Carbon Dioxide (21.0-32.0) meq/L Anion Gap (5-15) meq/L BUN (7-18) mg/dL Creatinine (0.60-1.30) mg/dL Estimated GFR (>89) mL/min Random Glucose (74-106) mg/dL Calcium (8.5-10.1) mg/dL Phosphorus (2.5-4.9) mg/dL Magnesium (1.5-2.5) mg/dL Blood Type Antibody Screen MTS Gel Crossmatch See Detail Imaging Data Radiologist's impression: Chest X-Ray 11/05/17 07:27 CONCLUSION: No acute cardiopulmonary disease. ECG Data Attestation: I personally reviewed and interpreted this ECG as follows: Interpretation: Rate: 80 BPM Rhythm: Paced Further analysis limited due to paced rhythm Impression: Ventricular paced rhythm at 80 BPM. Discharge Plan Discharge Disposition Patient Disposition: 30 Still Patient Discharge Condition Condition: Stable Discharge Details Diagnosis: Acute on chronic anemia, End stage renal disease on dialysis, Anemia requiring transfusions Physicians Team ED Provider: Marbella Almanzar Primary Care Provider: NON STAFF,PROVIDER Attending Provider: Khang Coley Status ED Status: Admitted Observation Patient
[2017-11-05 08:01] LABS: Baso % (Auto) 0.5 % (0.0-2.0); Eos # (Auto) 0.2 th/mm3 (0.0-0.4); Eos % (Auto) 2.1 % (0.0-4.0); Hematocrit 21.2 % (39.0-51.0); Hemoglobin 7.1 gm/dL (13.0-17.0); Lymph # (Auto) 0.9 th/mm3 (1.0-4.8); Lymph % (Auto) 10.6 % (9.0-44.0); Mean Corpuscular HGB Conc 33.5 % (32.0-36.0); Mean Corpuscular Hemoglobin 35.1 pg (27.0-34.0); Mean Corpuscular Volume 104.8 fL (80.0-100.0); Mean Platelet Volume 8.7 fL (7.0-11.0); Mono # (Auto) 0.8 th/mm3 (0.0-0.9); Mono % (Auto) 8.7 % (0.0-8.0); Neut # (Auto) 6.9 th/mm3 (1.8-7.7); Neut % (Auto) 78.1 % (16.0-70.0); Platelet Count 267 th/mm3 (150-450); Red Blood Count 2.03 mil/mm3 (4.50-5.90); Red Cell Distribution Width 24.5 % (11.6-17.2); White Blood Count 8.9 th/mm3 (4.0-11.0)
[2017-11-05 08:12] LABS: Calcium 10.1 mg/dL (8.5-10.1); Carbon Dioxide 24.1 meq/L (21.0-32.0); Magnesium 2.9 mg/dL (1.5-2.5); Phosphorus 5.3 mg/dL (2.5-4.9); Potassium 3.4 meq/L (3.5-5.1)
--- NOTE | 2017-11-05 08:22 | XR ---
EXAM DATE: 11/05/2017 8:10 AM EDT AGE/SEX: 72 years / Male INDICATIONS: Dyspnea. CLINICAL DATA: This is the patient's initial encounter. Patient reports that signs and symptoms have been present for 1 day and indicates a pain score of 0/10. MEDICAL/SURGICAL HISTORY: Chronic obstructive pulmonary disease. Appendectomy. Stent,Taver/Pace maker, and port 09/15 COMPARISON: Previous chest x-ray dated 10/22/2017.. FINDINGS: The heart is stable. Left subclavian dual lead pacemaker has its tips in right atrium and right ventr icle. Right internal jugular tunneled dialysis catheter has its tips in the superior vena cava. No pn eumothorax is noted. The pulmonary vascular pattern is normal. The lungs are clear. CONCLUSION: No acute cardiopulmonary disease. Electronically signed by: Chuck Rae MD 11/05/2017 8:20 AM EDT
[2017-11-05] MEDS ORDERED: Gelatin 12 MM/7 MM Topical Foam TOPICAL PRN (08:43)
[2017-11-05] MEDS ORDERED: Heparin 10,000 UNITS/10 ML Vial (for IV use) OTHER PRN ×2 (08:43)
[2017-11-05] MEDS ORDERED: Albumin Human 25% Inj 100 ML IV.SIG PRN (08:43)
[2017-11-05] MEDS ORDERED: Sod Chloride 0.9% Inj 1,000 ML OTHER PRN ×2 (08:43)
[2017-11-05] MEDS ORDERED: Acetaminophen 325 MG Tablet PO PRN ×2 (08:43→09:17)
[2017-11-05] MEDS ORDERED: Sod Chloride 0.9% Inj 1,000 ML IV.CONT PRN (08:43)
[2017-11-05] MEDS ORDERED: Sodium Chlor 0.9% Inj 250 ML IV.SIG SCH (09:00)
[2017-11-05] MEDS ORDERED: Potassium Chloride 10 MEQ ER Capsule PO ONE (09:16)
[2017-11-05] MEDS ORDERED: Bisacodyl 10 MG Supp RECTAL PRN (09:17)
[2017-11-05 10:21] VITALS: PULSE 91; RESP 22
[2017-11-05 10:53] VITALS: TEMP 98.7
--- NOTE | 2017-11-05 11:15 | P.HP ---
History of Present Illness Primary Care Physician: PROVIDER NON STAFF History of Present Illness: This is a 72-year-old male with a history of chronic anemia transfusion dependent, coronary artery disease status post OK, A. fib status post pacemaker insertion, aortic stenosis status post TAVR, hyperlipidemia and end-stage renal disease on hemodialysis. Family history of CAD. Was sent to the emergency department because of anemia. He was found to have a hemoglobin of 6.9 in the dialysis center and was sent for blood transfusion. Patient states he has had extensive workup in the past including EGD and colonoscopy with no clear etiology. He also receives Epogen and venofer during hemodialysis. His only complaint is dyspnea on exertion no chest pain, dizziness, syncope, palpitations , abdominal pain and gross bleeding. He is seen during hemodialysis receiving blood transfusion. He requests to be discharged after hemodialysis. States he was able to ambulate using a walker this morning. Review of Systems All other systems reviewed negative except as stated in HPI PMFSH - History History Provided By: Patient - Medical History Medical History: Medical History (Last Reviewed 11/05/17 @ 09:31 by Denisse Simpson) Afib (Acute) CAD (coronary artery disease) (Acute) History of renal dialysis (Acute) COPD (chronic obstructive pulmonary disease) (Acute) High cholesterol (Acute) Aortic stenosis (Acute) Myocardial infarct (Acute) CKD (chronic kidney disease) (Acute) HTN (hypertension) (Acute) Renal failure (Acute) HLD (hyperlipidemia) - Surgical History Surgical History: Surgical History (Last Reviewed 11/05/17 @ 09:31 by Denisse Simpson) H/O heart artery stent History of appendectomy History of carpal tunnel release Hx of tonsillectomy Status post insertion of dialysis catheter - Family History Family History: Family History (Last Reviewed 11/05/17 @ 09:32 by Denisse Simpson) Other No significant family history - Tobacco History Second Hand Smoke Exposure: Yes Tobacco Use In Past 30 Days: Yes Smoking Status: Current every day smoker Tobacco Type: Cigarettes - Alcohol History How Often Do You Have a Drink Containing Alcohol: 4 or more times a week - Substance Use History Substance History: No History of Abuse - Travel History Recent Travel in the [place] Within the Last 8 Weeks: No Recent Travel Out of the Country Within the Last 8 Weeks: No - Immunization History Tetanus Immunization: Unsure Hx Influenza Vaccine This Season: Yes Medications and Allergies Active Medications: Active Medications Acetaminophen (Tylenol) 650 mg PO UNSCH PRN PRN Reason: SEE LABEL COMMENTS Acetaminophen (Tylenol) 650 mg PO Q4H PRN PRN Reason: Temp > 100.4 Bisacodyl (Dulcolax Supp) 10 mg RECTAL DAILY PRN PRN Reason: SEVERE CONSITIPATION Clonidine HCl (Catapres) 0.1 mg PO UNSCH PRN PRN Reason: SEE LABEL COMMENTS Diphenhydramine HCl (Benadryl) 25 mg PO UNSCH PRN PRN Reason: SEE LABEL COMMENTS Epoetin [place] (Epogen Inj) 10,000 unit IV.PUSH UNSCH PRN PRN Reason: SEE LABEL COMMENTS Last Admin: 11/05/17 10:12 Dose: 10,000 unit Gelatin (Gelfoam 12 Mm/7 Mm Topical) 1 foam TOPICAL PRN PRN PRN Reason: help stop bleeding from site Gentamicin Sulfate (Gentamicin Inj) 20 mg OTHER WITH DIALYSIS PRN PRN Reason: Dwell Gentamycin Lock Last Admin: 11/05/17 10:12 Dose: 20 mg Heparin Sodium (Porcine) (Heparin Inj) 8,000 units OTHER WITH DIALYSIS PRN PRN Reason: for machine prime Heparin Sodium (Porcine) (Heparin Inj) 1,000 units OTHER WITH DIALYSIS PRN PRN Reason: Dwell Heparin to Fill Catheter Last Admin: 11/05/17 10:12 Dose: 1,000 units Sodium Chloride (Ns Inj) 250 mls @ 15 mls/hr IV.SIG ONCE CIARA Stop: 11/06/17 01:39 Sodium Chloride (Ns Inj) 1,000 mls @ 0 mls/hr OTHER .Q0M PRN PRN Reason: for prime and rinse back Sodium Chloride (Ns Inj) 1,000 mls @ 200 mls/hr OTHER .Q5H PRN PRN Reason: for dialyzer flush PRN Sodium Chloride (Ns Inj) 1,000 mls @ 0 mls/hr IV.CONT .Q0M PRN PRN Reason: hypotension / volume replace Albumin Human (Flexbumin 25% Inj) 100 mls @ 60 mls/hr IV.SIG WITH DIALYSIS PRN PRN Reason: hypotension / volume replace Lactulose (Lactulose Liq) 30 ml PO DAILY PRN PRN Reason: SEVERE CONSITIPATION Mannitol (Mannitol Inj) 12.5 gm IV.PUSH UNSCH PRN PRN Reason: hypotension / volume replace Nitroglycerin (Nitrostat Sl) 0.4 mg SL Q5M PRN PRN Reason: CHEST PAIN Ondansetron HCl (Zofran Inj) 4 mg IV.PUSH UNSCH PRN PRN Reason: NAUSEA OR VOMITING Ondansetron HCl (Zofran Inj) 4 mg IV.PUSH Q6H PRN PRN Reason: NAUSEA OR VOMITING Senna/Docusate Sodium (Sylvie-Colace) 1 tab PO BID CIARA Sennosides (Senokot) 17.2 mg PO Q12H PRN PRN Reason: Moderate Constipation Sodium Chloride (Ns Flush) 5 ml IV.FLUSH PRN PRN PRN Reason: flush each lumen during HD Allergies Allergy/AdvReac Type Severity Reaction Status Date / Time No Known Allergies Allergy Verified 10/22/17 11:24 Home Medications Medication Instructions Recorded Confirmed Type amiodarone 200 mg PO DAILY 10/22/17 10/22/17 History aspirin [Aspir-81] 81 mg PO DAILY 10/22/17 10/22/17 History atorvastatin 80 mg PO DAILY 10/22/17 10/22/17 History calcium acetate 667 mg PO BID 10/22/17 10/22/17 History cholecalciferol (vitamin D3) 400 unit PO DAILY 10/22/17 10/22/17 History [Vitamin D3] clopidogrel 75 mg PO DAILY 10/22/17 10/22/17 History furosemide 40 mg PO DAILY 10/22/17 10/22/17 History metoprolol succinate 50 mg PO DAILY 10/22/17 10/22/17 History multivitamin 1 tab PO DAILY 10/22/17 10/22/17 History Exam Vital signs: Vital Signs 11/05/17 07:11 11/05/17 10:19 11/05/17 10:53 Temperature 98.4 F 98.5 F 98.7 F Pulse Rate 102 H 91 H Respiratory Rate 22 Blood Pressure 146/64 H Pulse Oximetry 99 Intake & Output 11/04/17 11/05/17 11/05/17 18:59 06:59 18:59 Intake Total 0 / 0 Balance 0 / 0 Weight 100.244 kg Intake: Intake (Blood Product) Amt 0 / 0 Rbc As-3 Leukoreduced Unit 0 / 0 [id number] Rbc As-3 Leukoreduced Unit 0 / 0 [id number] Narrative: GENERAL: Well-developed and well-nourished in no distress SKIN: Warm and dry. Permacath in place HEAD: Atraumatic. Normocephalic. EYES: Pupils equal and round. No scleral icterus. No injection or drainage. ENT: No nasal bleeding or discharge. Mucous membranes pink and moist. NECK: Trachea midline. No JVD. CARDIOVASCULAR: Regular rate and rhythm. RESPIRATORY: No accessory muscle use. Clear to auscultation. Breath sounds equal bilaterally. GASTROINTESTINAL: Abdomen soft, non-tender, nondistended. MUSCULOSKELETAL: Extremities without clubbing, cyanosis with mild pitting edema. No obvious deformities. NEUROLOGICAL: Awake and alert. No obvious cranial nerve deficits. Motor grossly within normal limits. Five out of 5 muscle strength in the arms and legs. Normal speech. PSYCHIATRIC: Appropriate mood and affect; insight and judgment normal. Results - Labs CBC & Chem 7: 11/05/17 07:30 11/05/17 07:30 Labs: Laboratory Results - last 24 hr 11/05/17 11/05/17 11/05/17 07:30 07:30 07:30 WBC 8.9 RBC 2.03 L Hgb 7.1 L Hct 21.2 L MCV 104.8 H MCH 35.1 H MCHC 33.5 RDW 24.5 H Plt Count 267 MPV 8.7 Neut % (Auto) 78.1 H Lymph % (Auto) 10.6 Coffee % (Auto) 8.7 H Eos % (Auto) 2.1 Baso % (Auto) 0.5 Neut # (Auto) 6.9 Lymph # (Auto) 0.9 L Coffee # (Auto) 0.8 Eos # (Auto) 0.2 Baso # (Auto) 0.0 WBC Differential . Differential Comment Auto diff final Sodium 139 Potassium 3.4 L Chloride 103 Carbon Dioxide 24.1 Anion Gap 12 BUN 61 H Creatinine 5.31 H Estimated GFR 11 L Random Glucose 115 H Calcium 10.1 Phosphorus 5.3 H Magnesium 2.9 H Blood Type A Positive Antibody Screen Negative MTS Gel Crossmatch 11/05/17 08:33 WBC RBC Hgb Hct MCV MCH MCHC RDW Plt Count MPV Neut % (Auto) Lymph % (Auto) Coffee % (Auto) Eos % (Auto) Baso % (Auto) Neut # (Auto) Lymph # (Auto) Coffee # (Auto) Eos # (Auto) Baso # (Auto) WBC Differential Differential Comment Sodium Potassium Chloride Carbon Dioxide Anion Gap BUN Creatinine Estimated GFR Random Glucose Calcium Phosphorus Magnesium Blood Type Antibody Screen MTS Gel Crossmatch See Detail - Imaging Impressions Chest X-Ray 11/05/17 07:27 CONCLUSION: No acute cardiopulmonary disease. Caprini VTE Risk Assessment Caprini VTE Risk Assessment: Moderate/High Risk (score >= 2) Caprini Risk Assessment Model: Point Value = 1 Point Value = 2 Point Value = 3 Point Value = 5 Age 41-60 Minor surgery BMI > 25 kg/m2 Swollen legs Varicose veins or History of unexplained or recurrent spontaneous Oral contraceptives or hormone replacement Sepsis (< 1 month) Serious lung disease, including pneumonia (< 1 month) Abnormal pulmonary function Acute myocardial infarction Congestive heart failure (< 1 month) History of inflammatory bowel disease Medical patient at bed rest Age 61-74 Arthroscopic surgery Major open surgery (> 45 min) Laparoscopic surgery (> 45 min) Malignancy Confined to bed (> 72 hours) Immobilizing plaster cast Central venous access Age >= 75 History of VTE Family history of VTE Factor V Leiden Prothrombin 54527H Lupus anticoagulant Anticardiolipin antibodies Elevated serum homocysteine Heparin-induced thrombocytopenia Other congenital or acquired thrombophilia Stroke (< 1 month) Elective arthroplasty Hip, pelvis, or leg fracture Acute spinal cord injury (< 1 month) Prophylaxis Regimen: Total Risk Factor Score Risk Level Prophylaxis Regimen 0-1 Low Early ambulation 2 Moderate Order ONE of the following: *Sequential Compression Device (SCD) *Heparin 5000 units SQ BID 3-4 Higher Order ONE of the following medications: *Heparin 5000 units SQ TID *Enoxaparin/Lovenox 40 mg SQ daily (WT < 150 kg, CrCl > 30 mL/min) *Enoxaparin/Lovenox 30 mg SQ daily (WT < 150 kg, CrCl > 10-29 mL/min) *Enoxaparin/Lovenox 30 mg SQ BID (WT < 150 kg, CrCl > 30 mL/min) AND/OR *Sequential Compression Device (SCD) 5 or more Highest Order ONE of the following medications: *Heparin 5000 units SQ TID (Preferred with Epidurals) *Enoxaparin/Lovenox 40 mg SQ daily (WT < 150 kg, CrCl > 30 mL/min) *Enoxaparin/Lovenox 30 mg SQ daily (WT < 150 kg, CrCl > 10-29 mL/min) *Enoxaparin/Lovenox 30 mg SQ BID (WT < 150 kg, CrCl > 30 mL/min) AND *Sequential Compression Device (SCD) Assessment and Plan - Plan This is a 72-year-old male with a history of chronic anemia transfusion dependent, coronary artery disease status post OK, A. fib status post pacemaker insertion, aortic stenosis status post TAVR, hyperlipidemia and end-stage renal disease on hemodialysis. Was sent to the emergency department because of anemia. Symptomatic anemia. EKG tracing has been reviewed with paced rhythm. Chest x- ray image interpreted by me with no acute cardiopulmonary disease. Patient is transfusion dependent currently receiving packed RBC transfusion during hemodialysis for a total of 2 units. Patient wants to go home after dialysis if repeat hemoglobin is at least 8. Check Hemoccult. Patient to follow-up with hematology outpatient as well as capsule endoscopy. Patient has had extensive anemia workup in the recent past including EGD and colonoscopy with no clear etiology. Patient to continue Epogen and Venofer during hemodialysis. Nursing staff to update med list DVT prophylaxis with SCD and early ambulation Discharge Planning: Discharge patient to home Condition on discharge: Improved Regular Diet as tolerated Ad Macrina activity no driving Rx written: None Follow-up with primary care physician, nephrology and hematology
--- NOTE | 2017-11-05 12:46 | P.CONNP ---
History of Present Illness Service: Nephrology Consult date: 11/05/17 Requesting Physician: Khang Coley Reason for Consult: End-stage renal disease Primary Care Provider: PROVIDER NON STAFF History of Present Illness: 72-year-old white male with history of end-stage renal disease, TAVR, coronary artery disease, hypertension recurrent anemia he has upper endoscopy and lower endoscopy this hemoglobin drifted down it was 6.9 he was sent over for packed red blood cell transfusion, repeat hemoglobin came at 7.1, today is his hemodialysis day, his other complaint is increasing shortness of breath on exertion, patient has not done capsule endoscopy which was suggested by GI. Review of Systems Constitutional: Reports fatigue Eyes: Denies blind spots, Denies blurry vision, Denies bulging eyes, Denies change in vision, Denies double vision, Denies discharge, Denies dry eyes, Denies floaters, Denies irritation, Denies itchy eyes, Denies loss of vision, Denies pain, Denies requires corrective lenses, Denies sensitivity to light, Denies other Ears, Nose, Mouth, and Throat: Denies abnormal hearing, Denies bleeding gums, Denies bad breath, Denies change in voice, Denies dental pain, Denies difficulty swallowing, Denies dizziness, Denies dry mouth, Denies ear discharge , Denies ear pain, Denies facial pain, Denies headache(s), Denies hearing loss, Denies hoarseness, Denies lip swelling, Denies nosebleed, Denies mouth lesions, Denies mouth pain, Denies nasal congestion, Denies nasal discharge, Denies nasal obstruction, Denies nasal trauma, Denies neck lump, Denies neck pain, Denies nose pain, Denies pain with swallowing, Denies poor balance, Denies post nasal drip, Denies ringing in the ears, Denies sinus pain, Denies sinus pressure , Denies sore throat, Denies throat swelling, Denies tongue swelling, Denies other Cardiovascular: Reports shortness of breath Respiratory: Reports shortness of breath Gastrointestinal: Denies abdominal pain, Denies belching, Denies black, tarry stools, Denies bloating, Denies bright, red blood in stools, Denies change in bowel habits, Denies constant urge to pass stool, Denies change in stools, Denies coffee ground vomit, Denies constipation, Denies cramping, Denies difficulty swallowing, Denies excessive passing of gas, Denies feeling full early, Denies heartburn, Denies incontinent of stools, Denies loose stools, Denies nausea, Denies pain with swallowing, Denies vomiting, Denies vomiting blood, Denies other Genitourinary: Denies blood in semen, Denies blood in urine, Denies decreased urination, Denies difficulty urinating, Denies difficulty with ejaculations, Denies erectile dysfunction, Denies genital lesions, Denies genital pain, Denies painful urination, Denies side pain, Denies frequent nighttime urination , Denies painful ejaculations, Denies penile discharge, Denies scrotal swelling , Denies testicle lump, Denies testicle pain, Denies urinary frequency, Denies urinary hesitancy, Denies urinary incontinence, Denies urinary urgency, Denies other Skin/Breast: Denies acne, Denies bleeding lesions, Denies boil, Denies breast swelling, Denies breast skin changes, Denies breast pain, Denies breast lump, Denies change in breast shape, Denies change in hair, Denies change in skin color, Denies changing lesions, Denies dry skin, Denies excessive hair growth, Denies hair loss, Denies itching, Denies lesions, Denies nail changes, Denies new lesions, Denies nipple discharge, Denies non-healing lesions, Denies redness , Denies sensitivity to light, Denies rash, Denies skin pain, Denies skin ulcer , Denies sores, Denies stretch grande, Denies unusual bruising, Denies wounds, Denies yellowing of the skin, Denies other Neurologic: Denies abnormal hearing, Denies abnormal movements, Denies abnormal speech, Denies abnormal walking, Denies behavioral changes, Denies burning sensations, Denies confusion, Denies dizziness, Denies fainting, Denies frequent falls, Denies headache(s), Denies lack of coordination, Denies localized weakness, Denies loss of vision, Denies memory loss, Denies numbness, Denies other visual disturbances, Denies radiating pain, Denies restless legs, Denies convulsions, Denies seizure-like activity, Denies sensory deficit, Denies tingling, Denies tingling/numbness/burning sensations, Denies tremor(s), Denies unsteadiness, Denies weakness, Denies other Psychiatric: Reports anxiety Hematologic/Lymphatic: Denies easy bleeding, Denies easy bruising, Denies enlarged lymph nodes, Denies other Allergic/Immunologic: Denies GI upset with certain foods, Denies hives, Denies itchy eyes, Denies lip swelling, Denies seasonal runny nose, Denies throat swelling, Denies tongue swelling, Denies wheezing, Denies other PMFSH - History History Provided By: Patient - Medical History Medical History: Medical History (Last Reviewed 11/05/17 @ 09:31 by Denisse Simpson) Afib (Acute) CAD (coronary artery disease) (Acute) History of renal dialysis (Acute) COPD (chronic obstructive pulmonary disease) (Acute) High cholesterol (Acute) Aortic stenosis (Acute) Myocardial infarct (Acute) CKD (chronic kidney disease) (Acute) HTN (hypertension) (Acute) Renal failure (Acute) HLD (hyperlipidemia) - Surgical History Surgical History: Surgical History (Last Reviewed 11/05/17 @ 09:31 by Denisse Simpson) H/O heart artery stent History of appendectomy History of carpal tunnel release Hx of tonsillectomy Status post insertion of dialysis catheter - Family History Family History: Family History (Last Reviewed 11/05/17 @ 09:32 by Denisse Simpson) Other No significant family history - Tobacco History Second Hand Smoke Exposure: Yes Tobacco Use In Past 30 Days: Yes Smoking Status: Current every day smoker Tobacco Type: Cigarettes - Alcohol History How Often Do You Have a Drink Containing Alcohol: 4 or more times a week - Substance Use History Substance History: No History of Abuse - Travel History Recent Travel in the [place] Within the Last 8 Weeks: No Recent Travel Out of the Country Within the Last 8 Weeks: No - Immunization History Tetanus Immunization: Unsure Hx Influenza Vaccine This Season: Yes Medications and Allergies Active Medications: Active Medications Acetaminophen (Tylenol) 650 mg PO UNSCH PRN PRN Reason: SEE LABEL COMMENTS Acetaminophen (Tylenol) 650 mg PO Q4H PRN PRN Reason: Temp > 100.4 Bisacodyl (Dulcolax Supp) 10 mg RECTAL DAILY PRN PRN Reason: SEVERE CONSITIPATION Clonidine HCl (Catapres) 0.1 mg PO UNSCH PRN PRN Reason: SEE LABEL COMMENTS Diphenhydramine HCl (Benadryl) 25 mg PO UNSCH PRN PRN Reason: SEE LABEL COMMENTS Epoetin [place] (Epogen Inj) 10,000 unit IV.PUSH UNSCH PRN PRN Reason: SEE LABEL COMMENTS Last Admin: 11/05/17 10:12 Dose: 10,000 unit Gelatin (Gelfoam 12 Mm/7 Mm Topical) 1 foam TOPICAL PRN PRN PRN Reason: help stop bleeding from site Gentamicin Sulfate (Gentamicin Inj) 20 mg OTHER WITH DIALYSIS PRN PRN Reason: Dwell Gentamycin Lock Last Admin: 11/05/17 10:12 Dose: 20 mg Heparin Sodium (Porcine) (Heparin Inj) 8,000 units OTHER WITH DIALYSIS PRN PRN Reason: for machine prime Heparin Sodium (Porcine) (Heparin Inj) 1,000 units OTHER WITH DIALYSIS PRN PRN Reason: Dwell Heparin to Fill Catheter Last Admin: 11/05/17 10:12 Dose: 1,000 units Sodium Chloride (Ns Inj) 250 mls @ 15 mls/hr IV.SIG ONCE CIARA Stop: 11/06/17 01:39 Sodium Chloride (Ns Inj) 1,000 mls @ 0 mls/hr OTHER .Q0M PRN PRN Reason: for prime and rinse back Sodium Chloride (Ns Inj) 1,000 mls @ 200 mls/hr OTHER .Q5H PRN PRN Reason: for dialyzer flush PRN Sodium Chloride (Ns Inj) 1,000 mls @ 0 mls/hr IV.CONT .Q0M PRN PRN Reason: hypotension / volume replace Albumin Human (Flexbumin 25% Inj) 100 mls @ 60 mls/hr IV.SIG WITH DIALYSIS PRN PRN Reason: hypotension / volume replace Lactulose (Lactulose Liq) 30 ml PO DAILY PRN PRN Reason: SEVERE CONSITIPATION Mannitol (Mannitol Inj) 12.5 gm IV.PUSH UNSCH PRN PRN Reason: hypotension / volume replace Nitroglycerin (Nitrostat Sl) 0.4 mg SL Q5M PRN PRN Reason: CHEST PAIN Ondansetron HCl (Zofran Inj) 4 mg IV.PUSH UNSCH PRN PRN Reason: NAUSEA OR VOMITING Ondansetron HCl (Zofran Inj) 4 mg IV.PUSH Q6H PRN PRN Reason: NAUSEA OR VOMITING Senna/Docusate Sodium (Sylvie-Colace) 1 tab PO BID CIARA Sennosides (Senokot) 17.2 mg PO Q12H PRN PRN Reason: Moderate Constipation Sodium Chloride (Ns Flush) 5 ml IV.FLUSH PRN PRN PRN Reason: flush each lumen during HD Allergies Allergy/AdvReac Type Severity Reaction Status Date / Time No Known Allergies Allergy Verified 10/22/17 11:24 Home Medications Medication Instructions Recorded Confirmed Type amiodarone 200 mg PO DAILY 10/22/17 10/22/17 History aspirin [Aspir-81] 81 mg PO DAILY 10/22/17 10/22/17 History atorvastatin 80 mg PO DAILY 10/22/17 10/22/17 History calcium acetate 667 mg PO BID 10/22/17 10/22/17 History cholecalciferol (vitamin D3) 400 unit PO DAILY 10/22/17 10/22/17 History [Vitamin D3] clopidogrel 75 mg PO DAILY 10/22/17 10/22/17 History furosemide 40 mg PO DAILY 10/22/17 10/22/17 History metoprolol succinate 50 mg PO DAILY 10/22/17 10/22/17 History multivitamin 1 tab PO DAILY 10/22/17 10/22/17 History Exam Vital signs: Vital Signs 11/05/17 07:11 11/05/17 10:19 11/05/17 10:53 Temperature 98.4 F 98.5 F 98.7 F Pulse Rate 102 H 91 H Respiratory Rate 22 Blood Pressure 146/64 H Pulse Oximetry 99 Intake & Output 11/04/17 11/05/17 11/05/17 18:59 06:59 18:59 Intake Total 0 / 0 Output Total 3000 / 3000 Balance -3000 / -3000 Weight 100.244 kg Intake: Intake (Blood Product) Amt 0 / 0 Rbc As-3 Leukoreduced Unit 0 / 0 [id number] Rbc As-3 Leukoreduced Unit 0 / 0 [id number] Output: Hemodialysis Amount 3000 / 3000 - Constitutional no acute distress - Routine HEENT Exam Head: Present: normocephalic Eye: Present: EOMI, PERRL - Routine Neck Exam Present: supple - Routine Respiratory Exam Present: CTA bilaterally - Routine Cardiovascular Exam Present: RRR - Routine Abdominal Exam Present: soft, normoactive bowel sounds - Routine Extremities Exam Present: full ROM - Routine Neurological Exam Present: alert, oriented X3 Results - Lab Results 11/05/17 07:30 11/05/17 07:30 Most recent lab results Calcium 10.1 mg/dL (8.5-10.1) 11/05/17 07:30 Phosphorus 5.3 mg/dL (2.5-4.9) H 11/05/17 07:30 Magnesium 2.9 mg/dL (1.5-2.5) H 11/05/17 07:30 Assessment and Plan - Assessment (1) End stage renal disease on dialysis Code(s): N18.6 - End stage renal disease; Z99.2 - Dependence on renal dialysis Status: Acute (2) S/P TAVR (transcatheter aortic valve replacement) Code(s): Z95.2 - Presence of prosthetic heart valve Status: Acute (3) Anemia requiring transfusions Code(s): D64.9 - Anemia, unspecified Status: Acute - Plan Patient is seen during hemodialysis 3.5 L will be taken off, he received 2 units of packed red blood cell, continue to monitor Epogen 10,000 units Follow-up after his dialysis to outpatient clinic Okay to discharge and I have told him to complete his capsule endoscopy as outpatient.
[2017-11-05 13:55] LABS: Hemoglobin 9.6 gm/dL (13.0-17.0); Mean Corpuscular HGB Conc 34.3 % (32.0-36.0); Mean Corpuscular Hemoglobin 33.3 pg (27.0-34.0); Mean Corpuscular Volume 96.9 fL (80.0-100.0); Mean Platelet Volume 8.6 fL (7.0-11.0); Platelet Count 238 th/mm3 (150-450); Red Blood Count 2.89 mil/mm3 (4.50-5.90); Red Cell Distribution Width 23.8 % (11.6-17.2); White Blood Count 8.4 th/mm3 (4.0-11.0)
--- NOTE | 2017-11-05 17:54 | ECG ---
Date Performed: 11/05/2017 Time Performed: 09:21:10 PTAGE: 72 years EKG: Sinus rhythm WITH APPROPRIATE ELECTRONIC VENTRICULAR PACEMAKER CAPTURE ABNORMAL RHYTHM ECG PREVIOUS TRACING : 10/23/2017 05.00 Since the previous tracing, no significant change noted DOCTOR: Siva Salinas Interpretating Date/Time 11/05/2017 17:54:21
[2017-11-05] MEDS ORDERED: Senna/Docusate Sodium 8.6/50 MG Tablet PO SCH (21:00)
== END 2017-11-05 14:54 | disposition home or self-care (01) ==
LOC: NEDA 07:04 → NEPC 07:04 → NEDA 14:53
PROVIDERS: ADMIT Internal Medicine; ATTEND Internal Medicine

== ENCOUNTER 2017-11-28 11:04 | Observation (INO) ==
--- NOTE | 2017-11-28 11:40 | ED ---
HPI General Chief Complaint: Recheck/Abnormal Lab/Rx Stated Complaint: medical complaint Time Seen by Provider: 11/28/17 11:11 Source: patient Mode of arrival: wheelchair Limitations: no limitations History of Present Illness HPI narrative: 72 y male with a history of ESRD on HD MWF, CAD s/p stent placement, TAVR, A fib s/p pacemaker placement, hemodialysis, anemia presents to the emergency department for evaluation of low hemoglobin that was found on Friday. Says his scrap handler, Dr. Shah, advised to come to the emergency department today for a blood transfusion. Patient admits to having "17 pints [ of blood] since June". Currently he is short of breath with exertion but denies chest pain. He denies melena but states he has a small amount of blood on the toilet paper when he wipes. Denies nausea, vomiting, abdominal pain or back pain. Says that he is in the middle of getting this anemia workup done. Says he has had 2 colonoscopies and one endoscopy this year here at [facility]. He is due to have a capsule endoscopy December 09 and says that if this is negative, he will see hematology as an outpatient. His Primary Care Physician is Dr. Antoine Faria. 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 He did have dialysis this morning. Related Data Home Medications Medication Instructions Recorded Confirmed amiodarone 200 mg PO DAILY 10/22/17 11/28/17 aspirin [Aspir-81] 81 mg PO DAILY 10/22/17 11/28/17 atorvastatin 80 mg PO DAILY 10/22/17 11/28/17 calcium acetate 667 mg PO BID 10/22/17 11/28/17 cholecalciferol (vitamin D3) 400 unit PO DAILY 10/22/17 11/28/17 [Vitamin D3] clopidogrel 75 mg PO DAILY 10/22/17 11/28/17 furosemide 40 mg PO DAILY 10/22/17 11/28/17 multivitamin 1 tab PO DAILY 10/22/17 11/28/17 Allergies Allergy/AdvReac Type Severity Reaction Status Date / Time No Known Allergies Allergy Verified 10/22/17 11:24 Review of Systems ROS: all other systems reviewed are negative [facility] Medical History Medical History Afib (Acute) CAD (coronary artery disease) (Acute) History of renal dialysis (Acute) COPD (chronic obstructive pulmonary disease) (Acute) High cholesterol (Acute) Aortic stenosis (Acute) Myocardial infarct (Acute) CKD (chronic kidney disease) (Acute) HTN (hypertension) (Acute) Renal failure (Acute) HLD (hyperlipidemia) (Acute) Surgical History Surgical History H/O heart artery stent (Acute) History of appendectomy (Acute) History of carpal tunnel release (Acute) Hx of tonsillectomy (Acute) Status post insertion of dialysis catheter (Acute) Social History Social History Substance History: No History of Abuse Second Hand Smoke Exposure: Yes Smoking Status: Current every day smoker Tobacco Type: Cigarettes How Often Do You Have a Drink Containing Alcohol: Monthly or less Recent Travel in [facility] within the Last 8 Weeks: No Recent Out of Country Travel within the Last 8 Weeks: No Immunization History Tetanus Immunization: <5 Years Exam Narrative Exam Narrative: GENERAL: WD, WN in NAD SKIN: Focused skin assessment warm/dry. HEAD: Atraumatic. Normocephalic. EYES: Pupils equal and round. No scleral icterus. No injection or drainage. ENT: No nasal bleeding or discharge. Mucous membranes pale and moist. NECK: Trachea midline. No JVD. CARDIOVASCULAR: Regular rate and rhythm. No murmur appreciated. RESPIRATORY: No accessory muscle use. Clear to auscultation. Breath sounds equal bilaterally. GASTROINTESTINAL: Abdomen soft, non-tender, nondistended. Hepatic and splenic margins not palpable. MUSCULOSKELETAL: No obvious deformities. No clubbing. No cyanosis. No edema. NEUROLOGICAL: Awake and alert. No obvious cranial nerve deficits. Motor grossly within normal limits. Normal speech. PSYCHIATRIC: Appropriate mood and affect; insight and judgment normal. Course Initial Documented Vital Signs Temperature 97.8 F 11/28/17 11:06 Pulse Rate 100 H 11/28/17 11:06 Respiratory Rate 26 H 11/28/17 11:06 Blood Pressure 104/53 L 11/28/17 11:06 Pulse Oximetry 98 11/28/17 11:06 Last Documented Vital Signs Temperature 98.7 F 11/28/17 14:23 Pulse Rate 87 11/28/17 14:23 Respiratory Rate 19 11/28/17 14:23 Blood Pressure 131/58 L 11/28/17 14:23 Pulse Oximetry 100 11/28/17 14:16 Medical Decision Making MDM Narrative Medical decision making narrative: 72-year-old male presents to the emergency department at the request of his scrap handler, Dr. Shah for low hemoglobin. Pt is in the process of getting a work up for his anemia but a cause has not been found. His vital signs are stable. HR 107, BP 122/62, SaO2 97.8. Physical exam demonstrates a 72y male in NAD, pleasant. Labs significant for Hgb/Hct 6.5/20.8. Placed order for RBCs. Will contact Dr. Shah and coordinate with him for transfusion. Because patient received HD this morning, ok to transfuse today. Will transfuse 2 U RBCs and admit for completion of infusion. Medical Screen Exam Complete: Yes Emergency Medical Condition: Yes Differential Diagnosis Differential Diagnosis: Acute on chronic anemia, GI bleed, pneumonia, COPD Lab Data Result diagrams: 11/28/17 12:51 11/28/17 12:51 Lab Results 11/28/17 11/28/17 11/28/17 Range/Units 12:51 12:51 12:51 WBC 11.9 H (4.0-11.0) th/mm3 RBC 2.18 L (4.50-5.90) mil/mm3 Hgb 6.5 L* (13.0-17.0) gm/dL Hct 20.8 L* (39.0-51.0) % MCV 95.7 (80.0-100.0) fL MCH 29.7 (27.0-34.0) pg MCHC 31.0 L (32.0-36.0) % RDW 19.8 H (11.6-17.2) % Plt Count 292 (150-450) th/mm3 MPV 8.3 (7.0-11.0) fL Neut % (Auto) 85.5 H (16.0-70.0) % Lymph % (Auto) 4.6 L (9.0-44.0) % Rock % (Auto) 9.0 H (0.0-8.0) % Eos % (Auto) 0.3 (0.0-4.0) % Baso % (Auto) 0.6 (0.0-2.0) % Neut # (Auto) 10.2 H (1.8-7.7) th/mm3 Lymph # (Auto) 0.5 L (1.0-4.8) th/mm3 Rock # (Auto) 1.1 H (0.0-0.9) th/mm3 Eos # (Auto) 0.0 (0.0-0.4) th/mm3 Baso # (Auto) 0.1 (0.0-0.2) th/mm3 WBC Differential . Differential Comment Auto diff final PT 9.9 (9.8-11.6) sec INR 1.0 Ratio APTT 21.8 L (24.3-30.1) sec Sodium 141 (136-145) meq/L Potassium 3.4 L (3.5-5.1) meq/L Chloride 104 (98-107) meq/L Carbon Dioxide 29.4 (21.0-32.0) meq/L Anion Gap 8 (5-15) meq/L BUN 26 H (7-18) mg/dL Creatinine 3.14 H (0.60-1.30) mg/dL Estimated GFR 20 L (>89) mL/min Random Glucose 125 H (74-106) mg/dL Calcium 8.3 L (8.5-10.1) mg/dL Phosphorus (2.5-4.9) mg/dL Magnesium (1.5-2.5) mg/dL Total Bilirubin 0.2 (0.2-1.0) mg/dL AST 26 (15-37) U/L ALT 38 (12-78) U/L Alkaline Phosphatase 69 (45-117) U/L Total Protein 6.4 (6.4-8.2) g/dL Albumin 3.2 L (3.4-5.0) g/dL Blood Type Antibody Screen MTS Gel Crossmatch 11/28/17 11/28/17 11/28/17 Range/Units 12:51 12:51 12:51 WBC (4.0-11.0) th/mm3 RBC (4.50-5.90) mil/mm3 Hgb (13.0-17.0) gm/dL Hct (39.0-51.0) % MCV (80.0-100.0) fL MCH (27.0-34.0) pg MCHC (32.0-36.0) % RDW (11.6-17.2) % Plt Count (150-450) th/mm3 MPV (7.0-11.0) fL Neut % (Auto) (16.0-70.0) % Lymph % (Auto) (9.0-44.0) % Rock % (Auto) (0.0-8.0) % Eos % (Auto) (0.0-4.0) % Baso % (Auto) (0.0-2.0) % Neut # (Auto) (1.8-7.7) th/mm3 Lymph # (Auto) (1.0-4.8) th/mm3 [place] # (Auto) (0.0-0.9) th/mm3 Eos # (Auto) (0.0-0.4) th/mm3 Baso # (Auto) (0.0-0.2) th/mm3 WBC Differential Differential Comment PT (9.8-11.6) sec INR Ratio APTT (24.3-30.1) sec Sodium (136-145) meq/L Potassium (3.5-5.1) meq/L Chloride (98-107) meq/L Carbon Dioxide (21.0-32.0) meq/L Anion Gap (5-15) meq/L BUN (7-18) mg/dL Creatinine (0.60-1.30) mg/dL Estimated GFR (>89) mL/min Random Glucose (74-106) mg/dL Calcium (8.5-10.1) mg/dL Phosphorus 3.4 (2.5-4.9) mg/dL Magnesium 2.6 H (1.5-2.5) mg/dL Total Bilirubin (0.2-1.0) mg/dL AST (15-37) U/L ALT (12-78) U/L Alkaline Phosphatase (45-117) U/L Total Protein (6.4-8.2) g/dL Albumin (3.4-5.0) g/dL Blood Type A Positive Antibody Screen Negative MTS Gel Crossmatch 11/28/17 Range/Units 13:31 WBC (4.0-11.0) th/mm3 RBC (4.50-5.90) mil/mm3 Hgb (13.0-17.0) gm/dL Hct (39.0-51.0) % MCV (80.0-100.0) fL MCH (27.0-34.0) pg MCHC (32.0-36.0) % RDW (11.6-17.2) % Plt Count (150-450) th/mm3 MPV (7.0-11.0) fL Neut % (Auto) (16.0-70.0) % Lymph % (Auto) (9.0-44.0) % Rock % (Auto) (0.0-8.0) % Eos % (Auto) (0.0-4.0) % Baso % (Auto) (0.0-2.0) % Neut # (Auto) (1.8-7.7) th/mm3 Lymph # (Auto) (1.0-4.8) th/mm3 Rock # (Auto) (0.0-0.9) th/mm3 Eos # (Auto) (0.0-0.4) th/mm3 Baso # (Auto) (0.0-0.2) th/mm3 WBC Differential Differential Comment PT (9.8-11.6) sec INR Ratio APTT (24.3-30.1) sec Sodium (136-145) meq/L Potassium (3.5-5.1) meq/L Chloride (98-107) meq/L Carbon Dioxide (21.0-32.0) meq/L Anion Gap (5-15) meq/L BUN (7-18) mg/dL Creatinine (0.60-1.30) mg/dL Estimated GFR (>89) mL/min Random Glucose (74-106) mg/dL Calcium (8.5-10.1) mg/dL Phosphorus (2.5-4.9) mg/dL Magnesium (1.5-2.5) mg/dL Total Bilirubin (0.2-1.0) mg/dL AST (15-37) U/L ALT (12-78) U/L Alkaline Phosphatase (45-117) U/L Total Protein (6.4-8.2) g/dL Albumin (3.4-5.0) g/dL Blood Type Antibody Screen MTS Gel Crossmatch See Detail Imaging Data Radiologist's impression: Chest X-Ray 11/28/17 11:26 CONCLUSION: No acute disease Discharge Plan Discharge Disposition Patient Disposition: 30 Still Patient Discharge Condition Condition: Stable Discharge Details Diagnosis: Anemia, History of renal dialysis Physicians Team ED Provider: Lisa Vega ED Midlevel Provider: Tiara Saldaña Primary Care Provider: UNKNOWN, Attending Provider: Haris Isabel Status ED Status: Admitted Observation Patient
--- NOTE | 2017-11-28 12:12 | XR ---
EXAM DATE: 11/28/2017 11:55 AM EDT AGE/SEX: 72 years / Male INDICATIONS: Shortness of breath. CLINICAL DATA: This is the patient's initial encounter. Patient reports that signs and symptoms have been present for 1 day and indicates a pain score of 0/10. MEDICAL/SURGICAL HISTORY: Chronic obstructive pulmonary disease. Appendectomy. Pacemaker. Port . COMPARISON: [facility], CHEST 1V SINGLE AP, 11/05/2017. . FINDINGS: A pacing implement is present with control pack over left upper chest. Dialysis catheter is present i n this good stable position on the right. Lungs are focally clear. No pleural effusion is evident. Ca rdiac contours are stable and satisfactory. CONCLUSION: No acute disease Electronically signed by: Donaldo King MD 11/28/2017 12:11 PM EDT
[2017-11-28 13:17] LABS: Baso # (Auto) 0.1 th/mm3 (0.0-0.2); Baso % (Auto) 0.6 % (0.0-2.0); Eos % (Auto) 0.3 % (0.0-4.0); Lymph # (Auto) 0.5 th/mm3 (1.0-4.8); Lymph % (Auto) 4.6 % (9.0-44.0); Mean Corpuscular Hemoglobin 29.7 pg (27.0-34.0); Mean Corpuscular Volume 95.7 fL (80.0-100.0); Mean Platelet Volume 8.3 fL (7.0-11.0); Mono # (Auto) 1.1 th/mm3 (0.0-0.9); Neut # (Auto) 10.2 th/mm3 (1.8-7.7); Neut % (Auto) 85.5 % (16.0-70.0); Platelet Count 292 th/mm3 (150-450); Red Blood Count 2.18 mil/mm3 (4.50-5.90); Red Cell Distribution Width 19.8 % (11.6-17.2); White Blood Count 11.9 th/mm3 (4.0-11.0)
[2017-11-28 13:30] LABS: Hematocrit 20.8 % (39.0-51.0); Hemoglobin 6.5 gm/dL (13.0-17.0)
[2017-11-28 13:32] LABS: Activated Partial Thrombo Time 21.8 sec (24.3-30.1); Prothrombin Time 9.9 sec (9.8-11.6)
[2017-11-28 13:43] LABS: Alanine Aminotransferase 38 U/L (12-78); Albumin 3.2 g/dL (3.4-5.0); Anion Gap 8 meq/L (5-15); Aspartate Aminotransferase 26 U/L (15-37); Blood Urea Nitrogen 26 mg/dL (7-18); Calcium 8.3 mg/dL (8.5-10.1); Carbon Dioxide 29.4 meq/L (21.0-32.0); Chloride 104 meq/L (98-107); Glomerular Filtration Rate 20 mL/min (>89); Glucose,Random 125 mg/dL (74-106); Potassium 3.4 meq/L (3.5-5.1); Sodium 141 meq/L (136-145)
[2017-11-28 13:46] LABS: Alkaline Phosphatase 69 U/L (45-117); Total Protein 6.4 g/dL (6.4-8.2)
[2017-11-28] MEDS ORDERED: Sodium Chlor 0.9% Inj 250 ML IV.SIG SCH (15:00)
--- NOTE | 2017-11-28 18:07 | P.HPIM ---
History of Present Illness Primary Care Physician: UNKNOWN History of Present Illness: Mr. Ward is a 72-year-old male. He has a history of end-stage renal disease and is on dialysis. He also has a history of chronic GI bleed and has needed 17 transfusions within the past year. Today, while he was at his dialysis he checked his blood and was 6.5. He sent to the ER for treatment including transfusion. The only symptoms he could consider may be related are some weakness and shortness of breath with exertion. She will need approximately 2 units of packed red blood cells transfused. Patient otherwise has no complaints. - Diagnosis (1) Anemia (2) Dialysis patient (3) End stage renal disease on dialysis Review of Systems Constitutional: No fevers, no chills no night sweats, no fatigue, weakness Eyes: No eye pain, no blurry vision, no loss of vision ENT: No sore throat, no ear pain, no rhinorrhea Cardiovascular: No chest pain, no tachycardia, no palpitations, shortness of breath, no syncope Respiratory: No wheezing, no cough, no shortness of breath Gastrointestinal: No abdominal pain, no black tarry stools, no bright red blood per rectum, no vomiting, no diarrhea Musculoskeletal: No joint pain, no muscle cramps, no stiffness Integumentary: No rash, no ulcers, no drainage Neurologic: No sensory loss, no loss of motor function, no dizziness Psychiatric: No behavioral changes, no hallucinations, no suicidal ideations [facility] - History History Provided By: Patient - Medical History Medical History: Medical History (Last Reviewed 11/28/17 @ 11:37 by HORACE Harrison) Afib (Acute) CAD (coronary artery disease) (Acute) History of renal dialysis (Acute) COPD (chronic obstructive pulmonary disease) (Acute) High cholesterol (Acute) Aortic stenosis (Acute) Myocardial infarct (Acute) CKD (chronic kidney disease) (Acute) HTN (hypertension) (Acute) Renal failure (Acute) HLD (hyperlipidemia) - Surgical History Surgical History: Surgical History (Last Reviewed 11/28/17 @ 11:37 by HORACE Harrison) H/O heart artery stent History of appendectomy History of carpal tunnel release Hx of tonsillectomy Status post insertion of dialysis catheter - Family History Family History: Family History (Last Updated 11/28/17 @ 18:04 by Haris Isabel MD) Other No significant family history Osteoarthritis - Tobacco History Second Hand Smoke Exposure: No Tobacco Use In Past 30 Days: Yes Smoking Status: Current every day smoker Tobacco Type: Cigarettes - Alcohol History How Often Do You Have a Drink Containing Alcohol: Monthly or less - Substance Use History Substance History: No History of Abuse - Travel History Recent Travel in the [place] Within the Last 8 Weeks: No Recent Travel Out of the Country Within the Last 8 Weeks: No - Immunization History Tetanus Immunization: <5 Years Medications and Allergies Active Medications: Active Medications Al Hydroxide/Mg Hydroxide (Milk Of [place] Liq) 30 ml PO Q12H PRN PRN Reason: Mild Constipation Sodium Chloride (Ns Inj) 250 mls @ 15 mls/hr IV.SIG ONCE CIARA Stop: 11/29/17 07:39 Sodium Chloride (Ns Flush) 2 ml IV.FLUSH PRN PRN PRN Reason: FLUSH AFTER USING IV ACCESS Allergies Allergy/AdvReac Type Severity Reaction Status Date / Time No Known Allergies Allergy Verified 10/22/17 11:24 Home Medications Medication Instructions Recorded Confirmed Type amiodarone 200 mg PO DAILY 10/22/17 11/28/17 History aspirin [Aspir-81] 81 mg PO DAILY 10/22/17 11/28/17 History atorvastatin 80 mg PO DAILY 10/22/17 11/28/17 History calcium acetate 667 mg PO BID 10/22/17 11/28/17 History cholecalciferol (vitamin D3) 400 unit PO DAILY 10/22/17 11/28/17 History [Vitamin D3] clopidogrel 75 mg PO DAILY 10/22/17 11/28/17 History furosemide 40 mg PO DAILY 10/22/17 11/28/17 History multivitamin 1 tab PO DAILY 10/22/17 11/28/17 History Exam Vital signs: Vital Signs 11/28/17 11:06 11/28/17 11:10 11/28/17 14:16 Temperature 97.8 F 98.8 F Pulse Rate 100 H 107 H 92 H Respiratory Rate 26 H 22 18 Blood Pressure 104/53 L 122/62 129/61 Pulse Oximetry 98 99 100 11/28/17 14:23 11/28/17 17:14 11/28/17 17:57 Temperature 98.7 F 98.5 F 98.4 F Pulse Rate 87 80 85 Respiratory Rate 19 16 20 Blood Pressure 131/58 L 135/61 130/61 Pulse Oximetry 98 99 Intake & Output 11/27/17 11/28/17 11/28/17 18:59 06:59 18:59 Intake Total 400 / 400 Balance 400 / 400 Weight 222 kg Intake: Intake (Blood Product) Amt 400 / 400 Rbc As-3 Leukoreduced Unit 0 / 0 [id number] Rbc As-3 Leukoreduced Unit 400 / 400 [id number] Other: Date of Last Bowel Movement 11/28/17 Narrative: GENERAL: NAD, A&Ox3 HEAD: Normocephalic. NECK: Supple, trachea midline. No lymphadenopathy. EYES: No scleral icterus. No injection or drainage. CARDIOVASCULAR: Regular rate and rhythm without murmurs, gallops, or rubs. RESPIRATORY: Breath sounds equal bilaterally. No accessory muscle use. GASTROINTESTINAL: Abdomen soft, non-tender, nondistended. MUSCULOSKELETAL: No cyanosis, or edema. SKIN: Warm and dry. NEURO: No focal neurological deficits. Results - Labs CBC & Chem 7: 11/28/17 12:51 11/28/17 12:51 Labs: Short CBC 11/28/17 Range/Units 12:51 WBC 11.9 H (4.0-11.0) th/mm3 Hgb 6.5 L* (13.0-17.0) gm/dL Hct 20.8 L* (39.0-51.0) % Plt Count 292 (150-450) th/mm3 BMP 11/28/17 12:51 Sodium 141 Potassium 3.4 L Chloride 104 Carbon Dioxide 29.4 BUN 26 H Creatinine 3.14 H Calcium 8.3 L Liver Function 11/28/17 Range/Units 12:51 Total Bilirubin 0.2 (0.2-1.0) mg/dL AST 26 (15-37) U/L ALT 38 (12-78) U/L Alkaline Phosphatase 69 (45-117) U/L Albumin 3.2 L (3.4-5.0) g/dL - Imaging Impressions Chest X-Ray 11/28/17 11:26 CONCLUSION: No acute disease Caprini VTE Risk Assessment Caprini VTE Risk Assessment: No/Low Risk (score <= 1) Caprini Risk Assessment Model: Point Value = 1 Point Value = 2 Point Value = 3 Point Value = 5 Age 41-60 Minor surgery BMI > 25 kg/m2 Swollen legs Varicose veins or History of unexplained or recurrent spontaneous Oral contraceptives or hormone replacement Sepsis (< 1 month) Serious lung disease, including pneumonia (< 1 month) Abnormal pulmonary function Acute myocardial infarction Congestive heart failure (< 1 month) History of inflammatory bowel disease Medical patient at bed rest Age 61-74 Arthroscopic surgery Major open surgery (> 45 min) Laparoscopic surgery (> 45 min) Malignancy Confined to bed (> 72 hours) Immobilizing plaster cast Central venous access Age >= 75 History of VTE Family history of VTE Factor V Leiden Prothrombin [id number] Lupus anticoagulant Anticardiolipin antibodies Elevated serum homocysteine Heparin-induced thrombocytopenia Other congenital or acquired thrombophilia Stroke (< 1 month) Elective arthroplasty Hip, pelvis, or leg fracture Acute spinal cord injury (< 1 month) Prophylaxis Regimen: Total Risk Factor Score Risk Level Prophylaxis Regimen 0-1 Low Early ambulation 2 Moderate Order ONE of the following: *Sequential Compression Device (SCD) *Heparin 5000 units SQ BID 3-4 Higher Order ONE of the following medications: *Heparin 5000 units SQ TID *Enoxaparin/Lovenox 40 mg SQ daily (WT < 150 kg, CrCl > 30 mL/min) *Enoxaparin/Lovenox 30 mg SQ daily (WT < 150 kg, CrCl > 10-29 mL/min) *Enoxaparin/Lovenox 30 mg SQ BID (WT < 150 kg, CrCl > 30 mL/min) AND/OR *Sequential Compression Device (SCD) 5 or more Highest Order ONE of the following medications: *Heparin 5000 units SQ TID (Preferred with Epidurals) *Enoxaparin/Lovenox 40 mg SQ daily (WT < 150 kg, CrCl > 30 mL/min) *Enoxaparin/Lovenox 30 mg SQ daily (WT < 150 kg, CrCl > 10-29 mL/min) *Enoxaparin/Lovenox 30 mg SQ BID (WT < 150 kg, CrCl > 30 mL/min) AND *Sequential Compression Device (SCD) Assessment and Plan - Assessment (1) Anemia Code(s): D64.9 - Anemia, unspecified Status: Acute (2) Dialysis patient Code(s): Z99.2 - Dependence on renal dialysis Status: Acute (3) End stage renal disease on dialysis Code(s): N18.6 - End stage renal disease; Z99.2 - Dependence on renal dialysis Status: Acute - Plan 72-year-old male admitted secondary to severe anemia Severe Anemia Chronic GI bleed Transfuse 2 units packed red blood cells pill capsule study plan as an outpatient Follow with GI as an outpatient Continue iron supplement End-stage renal disease Nephrology following Continue dialysis as an outpatient DVT prophylaxis Continue baseline Plavix (recent stent) but no additional anticoagulation due to active bleeding Discharge planning Patient may discharge after blood transfusion H&P: Quality - VTE Deep Vein Thrombosis/Pulmonary Embolism Present on Admission: No (1) Anemia Qualifiers: Anemia type: unspecified type Qualified Code(s): D64.9 - Anemia, unspecified
--- NOTE | 2017-11-28 18:08 | P.DS ---
Date of admission: 11/28/17 15:02 Primary care physician: UNKNOWN Brief History from admission: Mr. Ward is a 72-year-old male. He has a history of end-stage renal disease and is on dialysis. He also has a history of chronic GI bleed and has needed 17 transfusions within the past year. Today, while he was at his dialysis he checked his blood and was 6.5. He sent to the ER for treatment including transfusion. The only symptoms he could consider may be related are some weakness and shortness of breath with exertion. She will need approximately 2 units of packed red blood cells transfused. Patient otherwise has no complaints. DS: Diagnosis - Discharge Diagnosis (1) Anemia Status: Acute (2) Dialysis patient Status: Acute (3) End stage renal disease on dialysis Status: Acute DS: Summary Hospital Course: Mr. Ward is a 72-year-old male. He was admitted secondary to severe anemia with hemoglobin of 6.5. 2 units of packed red blood cells were transfused. This is a chronic problem for this patient and no further workup or follow-up as needed. He will continue following with GI as an outpatient for further workup including a pill capsule study. He is medically stable and cleared for discharge home after 2 units of packed red blood cells are transfuse. - Time Spent with Patient Total time spent providing and/or coordinating discharge services: Less than 30 minutes - Quality: VTE Deep Vein Thrombosis/Pulmonary Embolism Present on Admission: No Exam Vital signs: Vital Signs 11/28/17 11:06 11/28/17 11:10 11/28/17 14:16 Temperature 97.8 F 98.8 F Pulse Rate 100 H 107 H 92 H Respiratory Rate 26 H 22 18 Blood Pressure 104/53 L 122/62 129/61 Pulse Oximetry 98 99 100 11/28/17 14:23 11/28/17 17:14 11/28/17 17:57 Temperature 98.7 F 98.5 F 98.4 F Pulse Rate 87 80 85 Respiratory Rate 19 16 20 Blood Pressure 131/58 L 135/61 130/61 Pulse Oximetry 98 99 Intake & Output 11/27/17 11/28/17 11/28/17 18:59 06:59 18:59 Intake Total 400 / 400 Balance 400 / 400 Weight 222 kg Intake: Intake (Blood Product) Amt 400 / 400 Rbc As-3 Leukoreduced Unit 0 / 0 [id number] Rbc As-3 Leukoreduced Unit 400 / 400 [id number] Other: Date of Last Bowel Movement 11/28/17 Results Procedures completed during hospitalization: Transfusion of 2 units packed red blood cells Labs on day of discharge: Labs from last 24 hours 11/28/17 11/28/17 11/28/17 13:31 12:51 12:51 WBC RBC Hgb Hct MCV MCH MCHC RDW Plt Count MPV Neut % (Auto) Lymph % (Auto) [place] % (Auto) Eos % (Auto) Baso % (Auto) Neut # (Auto) Lymph # (Auto) [place] # (Auto) Eos # (Auto) Baso # (Auto) WBC Differential Differential Comment PT INR APTT Sodium Potassium Chloride Carbon Dioxide Anion Gap BUN Creatinine Estimated GFR Random Glucose Calcium Phosphorus 3.4 Magnesium 2.6 H Total Bilirubin AST ALT Alkaline Phosphatase Total Protein Albumin Blood Type Antibody Screen MTS Gel Crossmatch See Detail 11/28/17 11/28/17 11/28/17 12:51 12:51 12:51 WBC RBC Hgb Hct MCV MCH MCHC RDW Plt Count MPV Neut % (Auto) Lymph % (Auto) [place] % (Auto) Eos % (Auto) Baso % (Auto) Neut # (Auto) Lymph # (Auto) [place] # (Auto) Eos # (Auto) Baso # (Auto) WBC Differential Differential Comment PT 9.9 INR 1.0 APTT 21.8 L Sodium 141 Potassium 3.4 L Chloride 104 Carbon Dioxide 29.4 Anion Gap 8 BUN 26 H Creatinine 3.14 H Estimated GFR 20 L Random Glucose 125 H Calcium 8.3 L Phosphorus Magnesium Total Bilirubin 0.2 AST 26 ALT 38 Alkaline Phosphatase 69 Total Protein 6.4 Albumin 3.2 L Blood Type A Positive Antibody Screen Negative MTS Gel Crossmatch 11/28/17 12:51 WBC 11.9 H RBC 2.18 L Hgb 6.5 L* Hct 20.8 L* MCV 95.7 MCH 29.7 MCHC 31.0 L RDW 19.8 H Plt Count 292 MPV 8.3 Neut % (Auto) 85.5 H Lymph % (Auto) 4.6 L [place] % (Auto) 9.0 H Eos % (Auto) 0.3 Baso % (Auto) 0.6 Neut # (Auto) 10.2 H Lymph # (Auto) 0.5 L [place] # (Auto) 1.1 H Eos # (Auto) 0.0 Baso # (Auto) 0.1 WBC Differential . Differential Comment Auto diff final PT INR APTT Sodium Potassium Chloride Carbon Dioxide Anion Gap BUN Creatinine Estimated GFR Random Glucose Calcium Phosphorus Magnesium Total Bilirubin AST ALT Alkaline Phosphatase Total Protein Albumin Blood Type Antibody Screen MTS Gel Crossmatch - Impressions ITS Impressions Chest X-Ray 11/28/17 11:26 CONCLUSION: No acute disease Discharge Plan - Discharge Disposition Patient Disposition: 01 Discharge Home - Discharge Condition Condition: Stable - Discharge Order Discharge Orders: Discharge Order (Routine); Ordered 11/28/17 Ordered By: Haris Isabel - Discharge Details Anticipated Discharge Date: 11/28/17 Discharge Comment: May discharge home after 2nd unit of blood is transfused. - Physicians Team Primary Care Provider: UNKNOWN, Attending Provider: Haris Isabel
[2017-11-28 18:19] VITALS: O2SAT 100
[2017-11-28 20:15] VITALS: BP 118/59; PULSE 84; RESP 20; TEMP 98.1
== END 2017-11-28 22:03 | disposition home or self-care (01) ==
LOC: NEDA 11:04 → NEPE 11:04 → NEPFCDU 16:11
PROVIDERS: ADMIT Hospitalist; ATTEND Hospitalist

== ENCOUNTER 2017-12-15 06:44 | Observation (INO) ==
--- NOTE | 2017-12-15 07:50 | ED ---
HPI General Chief complaint: Recheck/Abnormal Lab/Rx Stated complaint: Blood fusion needed Time Seen by Provider: 12/15/17 07:27 Source: patient and old records reviewed Mode of arrival: ambulatory Limitations: no limitations History of Present Illness HPI narrative: The patient is a 72-year-old male with Friday presenting because he was informed that last Friday he had a hemoglobin of 6.8. Patient states that he has received 19 units of blood for transfusion since June. He has had an endoscopy and is waiting approval for capsule endoscopy. He stated that he has had black tarry stools. There was evaluation the beginning of his symptoms for possible GI bleed that was negative at that time. Patient is not on blood thinners. He did not dialyze today. Denies of any complaints at this time. Is scheduled to see a press service reader later on this month. Patient initially said he does not have GI bleeds and is not on blood thinners however after reviewing previous charts it appears that he is on Plavix and has diagnosis of chronic GI bleed. Onset (ago): unknown Associated symptoms: malaise Related Data Home Medications Medication Instructions Recorded Confirmed amiodarone 200 mg PO DAILY 10/22/17 12/15/17 aspirin [Aspir-81] 81 mg PO DAILY 10/22/17 12/15/17 atorvastatin 80 mg PO DAILY 10/22/17 12/15/17 calcium acetate 667 mg PO BID 10/22/17 12/15/17 cholecalciferol (vitamin D3) 400 unit PO DAILY 10/22/17 12/15/17 [Vitamin D3] clopidogrel 75 mg PO DAILY 10/22/17 12/15/17 furosemide 40 mg PO DAILY 10/22/17 12/15/17 multivitamin 1 tab PO DAILY 10/22/17 12/15/17 Allergies Allergy/AdvReac Type Severity Reaction Status Date / Time No Known Allergies Allergy Verified 12/15/17 06:51 Review of Systems ROS: all other systems reviewed are negative [facility] Medical History Medical History HLD (hyperlipidemia) (Acute) Afib (Acute) CAD (coronary artery disease) (Acute) History of renal dialysis (Acute) COPD (chronic obstructive pulmonary disease) (Acute) High cholesterol (Acute) Aortic stenosis (Acute) Myocardial infarct (Acute) CKD (chronic kidney disease) (Acute) HTN (hypertension) (Acute) Renal failure (Acute) Surgical History Surgical History Status post insertion of dialysis catheter (Acute) Hx of tonsillectomy (Acute) History of carpal tunnel release (Acute) History of appendectomy (Acute) H/O heart artery stent (Acute) Family History Family History Other No significant family history Osteoarthritis Social History Social History Substance History: No History of Abuse Second Hand Smoke Exposure: No Smoking Status: Current every day smoker Tobacco Type: Cigarettes How Often Do You Have a Drink Containing Alcohol: 2 to 3 times a week Recent Travel in [facility] within the Last 8 Weeks: No Recent Out of Country Travel within the Last 8 Weeks: No Immunization History Tetanus Immunization: >5 Years Hx Influenza Vaccine This Season: Yes Exam Narrative Exam Narrative: GENERAL: Alert and oriented in no distress SKIN: Poor turgor. Multiple excoriations and ecchymosis on upper extremities in various healing stages. No signs of infection. Focused skin assessment warm /dry. HEAD: Atraumatic. Normocephalic. EYES: Pale conjunctiva. pupils equal and round. No scleral icterus. No injection or drainage. ENT: No nasal bleeding or discharge. Mucous membranes pink and moist. NECK: Trachea midline. No JVD. CARDIOVASCULAR: Regular rate and rhythm. No murmur appreciated. RESPIRATORY: No accessory muscle use. Clear to auscultation. Breath sounds equal bilaterally. GASTROINTESTINAL: Abdomen soft, non-tender, nondistended. Hepatic and splenic margins not palpable. MUSCULOSKELETAL: No obvious deformities. No clubbing. No cyanosis. No edema. NEUROLOGICAL: Awake and alert. No obvious cranial nerve deficits. Motor grossly within normal limits. Normal speech. PSYCHIATRIC: Appropriate mood and affect; insight and judgment normal. Course Hospital Course: Informed by blood bank that his hemoglobin 6.8. We will transfuse 2 units of PRBCs. We will also notify his therapeutic program worker to set him up for dialysis today. Consultations Consultation #1: Dr. Shah nephrology was notified. He will initiate dialysis for the patient. Time: 08:26 Initial Documented Vital Signs Temperature 98.6 F 12/15/17 06:51 Pulse Rate 94 H 12/15/17 06:51 Respiratory Rate 19 12/15/17 06:51 Blood Pressure 140/60 12/15/17 06:51 Pulse Oximetry 99 12/15/17 06:51 Last Documented Vital Signs Temperature 98.6 F 12/15/17 06:51 Pulse Rate 80 12/15/17 07:48 Respiratory Rate 18 12/15/17 07:44 Blood Pressure 135/58 L 12/15/17 07:44 Pulse Oximetry 98 12/15/17 08:45 Critical Care Time Critical Care Time: Yes Total Critical Care Time: 30 Attestation: Aggregate critical care time was 30 minutes. Time to perform other separately billable procedures was not included in the critical care time. My time did not include minutes spent treating any other patients simultaneously or on activities that did not directly contribute to the patient's treatment. The services I provided to this patient were to treat and/or prevent clinically significant deterioration that could result in: loss of current lifestyle, cardiac arrest, I provided critical care services requiring my management, as noted below: Chart data review, documentation time, medication orders and management, vital sign assessments/reviewing monitor data, ordering and reviewing lab tests, ordering and interpreting/reviewing x-rays and diagnostic studies, care of the patient and discussion of the patient with the admitting physicians. Medical Decision Making MDM Narrative Medical decision making narrative: Patient patient with a hemoglobin of 6.9. 2 units were ordered for transfusion. Electrolyte derangement expected per ESRD patient. Potassium within normal limits. Hemodynamically stable. No hematemesis. He does have a chronic GI bleed. He did report black tarry stools. Nephrology was consulted and set him up for dialysis at which he is going to receive the 2 units of blood. Medical Screen Exam Complete: Yes Emergency Medical Condition: Yes Lab Data Lab results reviewed: Yes I reviewed the patient's lab results. Result diagrams: 12/15/17 07:45 12/15/17 07:45 Lab Results 12/15/17 12/15/17 12/15/17 Range/Units 07:45 07:45 07:45 WBC 8.6 (4.0-11.0) th/mm3 RBC 2.13 L (4.50-5.90) mil/mm3 Hgb 6.9 L* (13.0-17.0) gm/dL Hct 21.8 L (39.0-51.0) % MCV 102.6 H (80.0-100.0) fL MCH 32.3 (27.0-34.0) pg MCHC 31.5 L (32.0-36.0) % RDW 26.6 H (11.6-17.2) % Plt Count 302 (150-450) th/mm3 MPV 8.4 (7.0-11.0) fL Prelim Diff (Auto) Slide review pending Neut % (Auto) 82.0 H (16.0-70.0) % Lymph % (Auto) 7.4 L (9.0-44.0) % [place] % (Auto) 8.1 H (0.0-8.0) % Eos % (Auto) 1.7 (0.0-4.0) % Baso % (Auto) 0.8 (0.0-2.0) % Neut # (Auto) 7.0 (1.8-7.7) th/mm3 Lymph # (Auto) 0.6 L (1.0-4.8) th/mm3 [place] # (Auto) 0.7 (0.0-0.9) th/mm3 Eos # (Auto) 0.1 (0.0-0.4) th/mm3 Baso # (Auto) 0.1 (0.0-0.2) th/mm3 WBC Differential Manual diff final Seg Neuts % (Manual) 72 H (16-70) % Band Neuts % (Manual) 5 (0-6) % Lymphocytes % (Manual) 14 (9-44) % Monocytes % (Manual) 8 (0-8) % Eosinophils % (Manual) 1 (0-4) % Abs Neuts (Manual) 6.6 (1.8-7.7) th/mm3 Nucleated RBCs/100 WBC 1 H (0-0) /100 WBC Differential Comment . Platelet Estimate Normal (Normal) Platelet Morphology Normal (Normal) Polychromasia 2.7 H (0.0-1.9) % Tear Drop Cells 1+ H (None) Ovalocytes 1+ H (None) PT (9.8-11.6) sec INR Ratio APTT (24.3-30.1) sec Sodium 141 (136-145) meq/L Potassium 3.6 (3.5-5.1) meq/L Chloride 101 (98-107) meq/L Carbon Dioxide 25.7 (21.0-32.0) meq/L Anion Gap 14 (5-15) meq/L BUN 82 H (7-18) mg/dL Creatinine 6.38 H (0.60-1.30) mg/dL Estimated GFR 9 L (>89) mL/min Random Glucose 108 H (74-106) mg/dL Calcium 9.5 (8.5-10.1) mg/dL Phosphorus 8.0 H (2.5-4.9) mg/dL Magnesium 3.5 H (1.5-2.5) mg/dL Blood Type A Positive Antibody Screen Negative MTS Gel Crossmatch 12/15/17 12/15/17 Range/Units 07:45 08:17 WBC (4.0-11.0) th/mm3 RBC (4.50-5.90) mil/mm3 Hgb (13.0-17.0) gm/dL Hct (39.0-51.0) % MCV (80.0-100.0) fL MCH (27.0-34.0) pg MCHC (32.0-36.0) % RDW (11.6-17.2) % Plt Count (150-450) th/mm3 MPV (7.0-11.0) fL Prelim Diff (Auto) Neut % (Auto) (16.0-70.0) % Lymph % (Auto) (9.0-44.0) % [place] % (Auto) (0.0-8.0) % Eos % (Auto) (0.0-4.0) % Baso % (Auto) (0.0-2.0) % Neut # (Auto) (1.8-7.7) th/mm3 Lymph # (Auto) (1.0-4.8) th/mm3 [place] # (Auto) (0.0-0.9) th/mm3 Eos # (Auto) (0.0-0.4) th/mm3 Baso # (Auto) (0.0-0.2) th/mm3 WBC Differential Seg Neuts % (Manual) (16-70) % Band Neuts % (Manual) (0-6) % Lymphocytes % (Manual) (9-44) % Monocytes % (Manual) (0-8) % Eosinophils % (Manual) (0-4) % Abs Neuts (Manual) (1.8-7.7) th/mm3 Nucleated RBCs/100 WBC (0-0) /100 WBC Differential Comment Platelet Estimate (Normal) Platelet Morphology (Normal) Polychromasia (0.0-1.9) % Tear Drop Cells (None) Ovalocytes (None) PT 10.0 (9.8-11.6) sec INR 1.0 Ratio APTT 21.6 L (24.3-30.1) sec Sodium (136-145) meq/L Potassium (3.5-5.1) meq/L Chloride (98-107) meq/L Carbon Dioxide (21.0-32.0) meq/L Anion Gap (5-15) meq/L BUN (7-18) mg/dL Creatinine (0.60-1.30) mg/dL Estimated GFR (>89) mL/min Random Glucose (74-106) mg/dL Calcium (8.5-10.1) mg/dL Phosphorus (2.5-4.9) mg/dL Magnesium (1.5-2.5) mg/dL Blood Type Antibody Screen MTS Gel Crossmatch See Detail Imaging Data Radiologist's impression: Chest X-Ray 12/15/17 07:36 CONCLUSION: Support equipment in good position. No acute abnormality identified. Discharge Plan Discharge Disposition Patient Disposition: 30 Still Patient Discharge Condition Condition: Stable Discharge Details Diagnosis: Anemia, ESRD (end stage renal disease) on dialysis, Chronic gastrointestinal bleeding Physicians Team ED Provider: Bebeto Cabrera Primary Care Provider: UNKNOWN, Rxs /Orders / Referrals /Forms Prescriptions: No Action multivitamin Tablet 1 tab PO DAILY RF: 0 furosemide 40 mg Tablet 40 mg PO DAILY RF: 0 atorvastatin 80 mg Tablet 80 mg PO DAILY RF: 0 amiodarone 200 mg Tablet 200 mg PO DAILY RF: 0 clopidogrel 75 mg Tablet 75 mg PO DAILY RF: 0 aspirin [Aspir-81] 81 mg Tablet,Delayed Release (Dr/Ec) 81 mg PO DAILY RF: 0 cholecalciferol (vitamin D3) [Vitamin D3] 400 unit Tablet 400 unit PO DAILY RF: 0 calcium acetate 667 mg Capsule 667 mg PO BID RF: 0 Discharge Interventions Interventions: Vital Signs Last Done: 12/15/17 07:44 Status ED Status: With Doctor
[2017-12-15 08:02] LABS: Baso # (Auto) 0.1 th/mm3 (0.0-0.2); Baso % (Auto) 0.8 % (0.0-2.0); Eos # (Auto) 0.1 th/mm3 (0.0-0.4); Eos % (Auto) 1.7 % (0.0-4.0); Lymph # (Auto) 0.6 th/mm3 (1.0-4.8); Lymph % (Auto) 7.4 % (9.0-44.0); Mean Corpuscular HGB Conc 31.5 % (32.0-36.0); Mean Corpuscular Hemoglobin 32.3 pg (27.0-34.0); Mean Corpuscular Volume 102.6 fL (80.0-100.0); Mean Platelet Volume 8.4 fL (7.0-11.0); Mono # (Auto) 0.7 th/mm3 (0.0-0.9); Mono % (Auto) 8.1 % (0.0-8.0); Platelet Count 302 th/mm3 (150-450); Red Blood Count 2.13 mil/mm3 (4.50-5.90); Red Cell Distribution Width 26.6 % (11.6-17.2); White Blood Count 8.6 th/mm3 (4.0-11.0)
[2017-12-15 08:16] LABS: Hematocrit 21.8 % (39.0-51.0); Hemoglobin 6.9 gm/dL (13.0-17.0)
[2017-12-15 08:17] LABS: Calcium 9.5 mg/dL (8.5-10.1); Carbon Dioxide 25.7 meq/L (21.0-32.0); Magnesium 3.5 mg/dL (1.5-2.5); Potassium 3.6 meq/L (3.5-5.1)
[2017-12-15] MEDS ORDERED: Sod Chloride 0.9% Inj 1,000 ML OTHER PRN ×2 (08:30)
[2017-12-15] MEDS ORDERED: Heparin 10,000 UNITS/10 ML Vial (for IV use) OTHER PRN ×2 (08:30)
[2017-12-15] MEDS ORDERED: Albumin Human 25% Inj 100 ML IV.SIG PRN (08:30)
[2017-12-15] MEDS ORDERED: Gelatin 12 MM/7 MM Topical Foam TOPICAL PRN (08:30)
[2017-12-15] MEDS ORDERED: Sod Chloride 0.9% Inj 1,000 ML IV.CONT PRN (08:30)
[2017-12-15] MEDS ORDERED: Acetaminophen 325 MG Tablet PO PRN ×2 (08:30→10:01)
--- NOTE | 2017-12-15 08:52 | XR ---
EXAM DATE: 12/15/2017 8:27 AM EDT AGE/SEX: 72 years / Male INDICATIONS: Anemia CLINICAL DATA: This is the patient's initial encounter. Patient reports that signs and symptoms have been present for 1 day and indicates a pain score of 0/10. MEDICAL/SURGICAL HISTORY: Cardiovascular disease. Pacemaker. COMPARISON: [facility] – [place], CHEST 1V SINGLE AP, 11/28/2017. . FINDINGS: The heart is mildly enlarged. There is a transvenous pacer in place. There is a dialysis catheter whi ch enters from the right internal jugular vein. The catheters in good position. The lungs are clear. The visualized bony structures are grossly intact. CONCLUSION: Support equipment in good position. No acute abnormality identified. Electronically signed by: Haris Hope MD 12/15/2017 8:50 AM EDT
[2017-12-15 08:57] LABS: Eosinophils 1 % (0-4); Lymphocytes 14 % (9-44); Monocytes 8 % (0-8); Ovalocytes 1+; Platelet Estimate Normal (Normal); Platelet Morphology Normal (Normal); Polychromasia 2.7 % (0.0-1.9); Tallied Nucleated RBC 1 (0-0); Tear Drop Cells 1+
[2017-12-15] MEDS ORDERED: Sodium Chlor 0.9% Inj 250 ML IV.SIG SCH (09:00)
[2017-12-15 09:12] LABS: Activated Partial Thrombo Time 21.6 sec (24.3-30.1)
[2017-12-15] MEDS ORDERED: Bisacodyl 10 MG Supp RECTAL PRN (09:59)
--- NOTE | 2017-12-15 11:25 | P.HPIM ---
History of Present Illness Primary Care Physician: UNKNOWN History of Present Illness: This patient is a 72-year-old male with a diagnosis of coronary artery disease status post AK in August 2017. The patient also had an aortic valve replacement and a pacemaker placed in August 2017. Since the patient's AK in August 2017 he has been on hemodialysis and gets dialyzed on Friday and Fridays. The patient's last hemodialysis was past Friday. As per the patient he has been having dark tarry stools he has had multiple upper endoscopies and lower endoscopies however no clear source of bleeding has been identified as per the patient. He states that he was seen by his business education teacher Dr. Patrick who recommended that the patient undergo a capsule endoscopy. He was feeling short winded and fatigued at home so he came into our emergency department for evaluation. His hemoglobin was found to be low at 6.8. He denies any chest pain, no diarrhea, no abdominal pain, no fevers, no chills. Review of Systems All other systems reviewed negative except as stated in HPI PMFSH - History History Provided By: Patient - Medical History Medical History: Medical History (Last Reviewed 12/15/17 @ 07:49 by Bebeto Cabrera DO) HLD (hyperlipidemia) (Acute) Afib (Acute) CAD (coronary artery disease) (Acute) History of renal dialysis (Acute) COPD (chronic obstructive pulmonary disease) (Acute) High cholesterol (Acute) Aortic stenosis (Acute) Myocardial infarct (Acute) CKD (chronic kidney disease) (Acute) HTN (hypertension) (Acute) Renal failure (Acute) - Surgical History Surgical History: Surgical History (Last Reviewed 12/15/17 @ 07:49 by Bebeto Cabrera DO) Status post insertion of dialysis catheter (Acute) Hx of tonsillectomy (Acute) History of carpal tunnel release (Acute) History of appendectomy (Acute) H/O heart artery stent (Acute) - Family History Family History: Family History (Last Reviewed 12/15/17 @ 07:49 by Bebeto Cabrera DO) Other No significant family history Osteoarthritis - Tobacco History Second Hand Smoke Exposure: No Tobacco Use In Past 30 Days: Yes Smoking Status: Current every day smoker Tobacco Type: Cigarettes - Alcohol History How Often Do You Have a Drink Containing Alcohol: 2 to 3 times a week - Substance Use History Substance History: No History of Abuse - Travel History Recent Travel in the [place] Within the Last 8 Weeks: No Recent Travel Out of the Country Within the Last 8 Weeks: No - Immunization History Tetanus Immunization: >5 Years Hx Influenza Vaccine This Season: Yes Medications and Allergies Active Medications: Active Medications Acetaminophen (Tylenol) 650 mg PO UNSCH PRN PRN Reason: SEE LABEL COMMENTS Acetaminophen (Tylenol) 650 mg PO Q4H PRN PRN Reason: Temp > 100.4 Al Hydroxide/Mg Hydroxide (Milk Of Magnesia Liq) 30 ml PO Q12H PRN PRN Reason: Mild Constipation Bisacodyl (Dulcolax Supp) 10 mg RECTAL DAILY PRN PRN Reason: SEVERE CONSITIPATION Clonidine HCl (Catapres) 0.1 mg PO UNSCH PRN PRN Reason: SEE LABEL COMMENTS Diphenhydramine HCl (Benadryl) 25 mg PO UNSCH PRN PRN Reason: SEE LABEL COMMENTS Epoetin [place] (Epogen Inj) 10,000 unit IV.PUSH UNSCH PRN PRN Reason: SEE LABEL COMMENTS Gelatin (Gelfoam 12 Mm/7 Mm Topical) 1 foam TOPICAL PRN PRN PRN Reason: help stop bleeding from site Gentamicin Sulfate (Gentamicin Inj) 20 mg OTHER WITH DIALYSIS PRN PRN Reason: Dwell Gentamycin Lock Heparin Sodium (Porcine) (Heparin Inj) 8,000 units OTHER WITH DIALYSIS PRN PRN Reason: for machine prime Heparin Sodium (Porcine) (Heparin Inj) 1,000 units OTHER WITH DIALYSIS PRN PRN Reason: Dwell Heparin to Fill Catheter Sodium Chloride (Ns Inj) 250 mls @ 15 mls/hr IV.SIG ONCE CIARA Stop: 12/16/17 01:39 Albumin Human (Flexbumin 25% Inj) 100 mls @ 60 mls/hr IV.SIG WITH DIALYSIS PRN PRN Reason: hypotension / volume replace Sodium Chloride (Ns Inj) 1,000 mls @ 0 mls/hr OTHER .Q0M PRN PRN Reason: for prime and rinse back Sodium Chloride (Ns Inj) 1,000 mls @ 200 mls/hr OTHER .Q5H PRN PRN Reason: for dialyzer flush PRN Sodium Chloride (Ns Inj) 1,000 mls @ 0 mls/hr IV.CONT .Q0M PRN PRN Reason: hypotension / volume replace Lactulose (Lactulose Liq) 30 ml PO DAILY PRN PRN Reason: SEVERE CONSITIPATION Mannitol (Mannitol Inj) 12.5 gm IV.PUSH UNSCH PRN PRN Reason: hypotension / volume replace Nitroglycerin (Nitrostat Sl) 0.4 mg SL Q5M PRN PRN Reason: CHEST PAIN Ondansetron HCl (Zofran Inj) 4 mg IV.PUSH UNSCH PRN PRN Reason: NAUSEA OR VOMITING Ondansetron HCl (Zofran Inj) 4 mg IV.PUSH Q6H PRN PRN Reason: NAUSEA OR VOMITING Senna/Docusate Sodium (Sylvie-Colace) 1 tab PO BID CIARA Sennosides (Senokot) 17.2 mg PO Q12H PRN PRN Reason: Moderate Constipation Sodium Chloride (Ns Flush) 5 ml IV.FLUSH PRN PRN PRN Reason: flush each lumen during HD Allergies Allergy/AdvReac Type Severity Reaction Status Date / Time No Known Allergies Allergy Verified 12/15/17 06:51 Home Medications Medication Instructions Recorded Confirmed Type amiodarone 200 mg PO DAILY 10/22/17 12/15/17 History aspirin [Aspir-81] 81 mg PO DAILY 10/22/17 12/15/17 History atorvastatin 80 mg PO DAILY 10/22/17 12/15/17 History calcium acetate 667 mg PO BID 10/22/17 12/15/17 History cholecalciferol (vitamin D3) 400 unit PO DAILY 10/22/17 12/15/17 History [Vitamin D3] clopidogrel 75 mg PO DAILY 10/22/17 12/15/17 History furosemide 40 mg PO DAILY 10/22/17 12/15/17 History multivitamin 1 tab PO DAILY 10/22/17 12/15/17 History Exam Vital signs: Vital Signs 12/15/17 06:51 12/15/17 07:44 12/15/17 07:48 Temperature 98.6 F Pulse Rate 94 H 84 80 Respiratory Rate 19 18 Blood Pressure 140/60 135/58 L Pulse Oximetry 99 98 12/15/17 08:45 Temperature Pulse Rate Respiratory Rate Blood Pressure Pulse Oximetry 98 Intake & Output 12/14/17 12/15/17 12/15/17 18:59 06:59 18:59 Weight 102.058 kg Narrative: General patient in no acute distress HEENT extraocular movements are intact, clear oropharyngeal mucosa, no JVD Cardiovascular S1-S2 audible, dialysis catheter on the right sided chest. Respiratory clear to auscultation bilaterally Abdomen soft, nontender, nondistended, normal bowel sounds Extremities no edema 2+ distal pulses in bilateral upper and lower extremities Neuro cranial nerves II through XII intact Results - Labs CBC & Chem 7: 12/15/17 07:45 12/15/17 07:45 Labs: Short CBC 12/15/17 Range/Units 07:45 WBC 8.6 (4.0-11.0) th/mm3 Hgb 6.9 L* (13.0-17.0) gm/dL Hct 21.8 L (39.0-51.0) % Plt Count 302 (150-450) th/mm3 BMP 12/15/17 07:45 Sodium 141 Potassium 3.6 Chloride 101 Carbon Dioxide 25.7 BUN 82 H Creatinine 6.38 H Calcium 9.5 - Imaging Impressions Chest X-Ray 12/15/17 07:36 CONCLUSION: Support equipment in good position. No acute abnormality identified. Caprini VTE Risk Assessment Caprini VTE Risk Assessment: No/Low Risk (score <= 1) VTE Pharmacological Exception Reason: Active bleeding Caprini Risk Assessment Model: Point Value = 1 Point Value = 2 Point Value = 3 Point Value = 5 Age 41-60 Minor surgery BMI > 25 kg/m2 Swollen legs Varicose veins or History of unexplained or recurrent spontaneous Oral contraceptives or hormone replacement Sepsis (< 1 month) Serious lung disease, including pneumonia (< 1 month) Abnormal pulmonary function Acute myocardial infarction Congestive heart failure (< 1 month) History of inflammatory bowel disease Medical patient at bed rest Age 61-74 Arthroscopic surgery Major open surgery (> 45 min) Laparoscopic surgery (> 45 min) Malignancy Confined to bed (> 72 hours) Immobilizing plaster cast Central venous access Age >= 75 History of VTE Family history of VTE Factor V Leiden Prothrombin [id number] Lupus anticoagulant Anticardiolipin antibodies Elevated serum homocysteine Heparin-induced thrombocytopenia Other congenital or acquired thrombophilia Stroke (< 1 month) Elective arthroplasty Hip, pelvis, or leg fracture Acute spinal cord injury (< 1 month) Prophylaxis Regimen: Total Risk Factor Score Risk Level Prophylaxis Regimen 0-1 Low Early ambulation 2 Moderate Order ONE of the following: *Sequential Compression Device (SCD) *Heparin 5000 units SQ BID 3-4 Higher Order ONE of the following medications: *Heparin 5000 units SQ TID *Enoxaparin/Lovenox 40 mg SQ daily (WT < 150 kg, CrCl > 30 mL/min) *Enoxaparin/Lovenox 30 mg SQ daily (WT < 150 kg, CrCl > 10-29 mL/min) *Enoxaparin/Lovenox 30 mg SQ BID (WT < 150 kg, CrCl > 30 mL/min) AND/OR *Sequential Compression Device (SCD) 5 or more Highest Order ONE of the following medications: *Heparin 5000 units SQ TID (Preferred with Epidurals) *Enoxaparin/Lovenox 40 mg SQ daily (WT < 150 kg, CrCl > 30 mL/min) *Enoxaparin/Lovenox 30 mg SQ daily (WT < 150 kg, CrCl > 10-29 mL/min) *Enoxaparin/Lovenox 30 mg SQ BID (WT < 150 kg, CrCl > 30 mL/min) AND *Sequential Compression Device (SCD) Assessment and Plan - Plan This patient is a 72-year-old male with a diagnosis of coronary artery disease, AK status post stent, aortic valve replacement, on aspirin and Plavix. The patient also has end-stage renal disease on hemodialysis and receives hemodialysis Friday and Friday. His last hemodialysis was last Friday. He presents our emergency department feeling fatigued, his hemoglobin was found to be low at 6.8. 1. Acute symptomatic anemia possibly secondary to GI bleed. 2. History of AK status post stent The patient will be admitted and monitored on telemetry. Vital signs are currently stable. He will be given 2 units PRBCs and will also receive hemodialysis today. Gastroenterology has been consulted. Aspirin and Plavix will be continued at this time due to the risk of in-stent thrombosis given that the patient had a stent placed recently. There is currently no hematemesis and his vital signs are stable. We will follow-up a hemoglobin level tonight.
--- NOTE | 2017-12-15 12:00 | P.CONGI ---
History of Present Illness Chief complaint: Anemia, Chronic GI Bleed, ESRD on HD History of Present Illness: This is a 72 year old M with PMH significant for CKD, COPD, hyperlipidemia, HTN , MADAN, chronic anemia, and spinal stenosis who presents as instructed for OP labs that showed low hgb. Pt is known to our practice from previous encounters for same presentations. Pt is on Plavix and ASA. He endorses black tarry stools that he noticed recently, not able to further elaborate. He attributes to being on Iron and Epigean since August. Denies nausea, vomiting, hematemesis, abd pain or change in bowels, he has mild constipation for which he take laxatives at home with good results . Denies acid reflux, heartburn. Denies NSAIDs use. admits to drinking occasionally. EGD on 09/04 which revealed normal esophagus, gastritis in the gastric antrum, normal duodenal mucosa in the duodenal bulb, 2nd part of the duodenum, and 3rd part of the duodenum. Pathology (antrum) moderate chronic, focally active gastritis with intestinal metaplasia. colonoscopy 09/16 --> Mild diverticulosis was noted in the sigmoid colon. A sessile polyp ranging between 3-5 mm in size was found in the sigmoid colon, polypectomy. Internal and external hemorrhoids. Bx revealed hyperplastic polyp. Patient is suppose to have CE and this is pending insurance approval . <Tommie Camarena - Last Filed: 12/15/17 11:39> Review of Systems All other systems reviewed negative except as stated in HPI <Tommie Camarena - Last Filed: 12/15/17 11:39> PMFSH - History History Provided By: Patient - Medical History Medical History: Medical History (Last Reviewed 12/15/17 @ 07:49 by Bebeto Cabrera DO) HLD (hyperlipidemia) (Acute) Afib (Acute) CAD (coronary artery disease) (Acute) History of renal dialysis (Acute) COPD (chronic obstructive pulmonary disease) (Acute) High cholesterol (Acute) Aortic stenosis (Acute) Myocardial infarct (Acute) CKD (chronic kidney disease) (Acute) HTN (hypertension) (Acute) Renal failure (Acute) - Surgical History Surgical History: Surgical History (Last Reviewed 12/15/17 @ 07:49 by Bebeto Cabrera DO) Status post insertion of dialysis catheter (Acute) Hx of tonsillectomy (Acute) History of carpal tunnel release (Acute) History of appendectomy (Acute) H/O heart artery stent (Acute) - Family History Family History: Family History (Last Reviewed 12/15/17 @ 07:49 by Bebeto Cabrera DO) Other No significant family history Osteoarthritis - Tobacco History Second Hand Smoke Exposure: No Tobacco Use In Past 30 Days: Yes Smoking Status: Current every day smoker Tobacco Type: Cigarettes - Alcohol History How Often Do You Have a Drink Containing Alcohol: 2 to 3 times a week - Substance Use History Substance History: No History of Abuse - Travel History Recent Travel in the [place] Within the Last 8 Weeks: No Recent Travel Out of the Country Within the Last 8 Weeks: No - Immunization History Tetanus Immunization: >5 Years Hx Influenza Vaccine This Season: Yes <Tommie Camarena - Last Filed: 12/15/17 11:39> - Medical History Medical History: Medical History (Last Reviewed 12/15/17 @ 07:49 by Bebeto Cabrera DO) HLD (hyperlipidemia) (Acute) Afib (Acute) CAD (coronary artery disease) (Acute) History of renal dialysis (Acute) COPD (chronic obstructive pulmonary disease) (Acute) High cholesterol (Acute) Aortic stenosis (Acute) Myocardial infarct (Acute) CKD (chronic kidney disease) (Acute) HTN (hypertension) (Acute) Renal failure (Acute) - Surgical History Surgical History: Surgical History (Last Reviewed 12/15/17 @ 07:49 by Bebeto Cabrera DO) Status post insertion of dialysis catheter (Acute) Hx of tonsillectomy (Acute) History of carpal tunnel release (Acute) History of appendectomy (Acute) H/O heart artery stent (Acute) - Family History Family History: Family History (Last Reviewed 12/15/17 @ 07:49 by Bebeto Cabrera DO) Other No significant family history Osteoarthritis <Stanley Azar - Last Filed: 12/15/17 20:31> Medications and Allergies Active Medications: Active Medications Acetaminophen (Tylenol) 650 mg PO UNSCH PRN PRN Reason: SEE LABEL COMMENTS Acetaminophen (Tylenol) 650 mg PO Q4H PRN PRN Reason: Temp > 100.4 Al Hydroxide/Mg Hydroxide (Milk Of Magnesia Liq) 30 ml PO Q12H PRN PRN Reason: Mild Constipation Bisacodyl (Dulcolax Supp) 10 mg RECTAL DAILY PRN PRN Reason: SEVERE CONSITIPATION Clonidine HCl (Catapres) 0.1 mg PO UNSCH PRN PRN Reason: SEE LABEL COMMENTS Diphenhydramine HCl (Benadryl) 25 mg PO UNSCH PRN PRN Reason: SEE LABEL COMMENTS Epoetin [place] (Epogen Inj) 10,000 unit IV.PUSH UNSCH PRN PRN Reason: SEE LABEL COMMENTS Gelatin (Gelfoam 12 Mm/7 Mm Topical) 1 foam TOPICAL PRN PRN PRN Reason: help stop bleeding from site Gentamicin Sulfate (Gentamicin Inj) 20 mg OTHER WITH DIALYSIS PRN PRN Reason: Dwell Gentamycin Lock Heparin Sodium (Porcine) (Heparin Inj) 8,000 units OTHER WITH DIALYSIS PRN PRN Reason: for machine prime Heparin Sodium (Porcine) (Heparin Inj) 1,000 units OTHER WITH DIALYSIS PRN PRN Reason: Dwell Heparin to Fill Catheter Sodium Chloride (Ns Inj) 250 mls @ 15 mls/hr IV.SIG ONCE CIARA Stop: 12/16/17 01:39 Last Admin: 12/15/17 11:32 Dose: 15 mls/hr Albumin Human (Flexbumin 25% Inj) 100 mls @ 60 mls/hr IV.SIG WITH DIALYSIS PRN PRN Reason: hypotension / volume replace Sodium Chloride (Ns Inj) 1,000 mls @ 0 mls/hr OTHER .Q0M PRN PRN Reason: for prime and rinse back Sodium Chloride (Ns Inj) 1,000 mls @ 200 mls/hr OTHER .Q5H PRN PRN Reason: for dialyzer flush PRN Sodium Chloride (Ns Inj) 1,000 mls @ 0 mls/hr IV.CONT .Q0M PRN PRN Reason: hypotension / volume replace Lactulose (Lactulose Liq) 30 ml PO DAILY PRN PRN Reason: SEVERE CONSITIPATION Mannitol (Mannitol Inj) 12.5 gm IV.PUSH UNSCH PRN PRN Reason: hypotension / volume replace Nitroglycerin (Nitrostat Sl) 0.4 mg SL Q5M PRN PRN Reason: CHEST PAIN Ondansetron HCl (Zofran Inj) 4 mg IV.PUSH UNSCH PRN PRN Reason: NAUSEA OR VOMITING Ondansetron HCl (Zofran Inj) 4 mg IV.PUSH Q6H PRN PRN Reason: NAUSEA OR VOMITING Senna/Docusate Sodium (Sylvie-Colace) 1 tab PO BID CIARA Sennosides (Senokot) 17.2 mg PO Q12H PRN PRN Reason: Moderate Constipation Sodium Chloride (Ns Flush) 5 ml IV.FLUSH PRN PRN PRN Reason: flush each lumen during HD <Tommie Camarena - Last Filed: 12/15/17 11:39> Active Medications: Active Medications Acetaminophen (Tylenol) 650 mg PO UNSCH PRN PRN Reason: SEE LABEL COMMENTS Acetaminophen (Tylenol) 650 mg PO Q4H PRN PRN Reason: Temp > 100.4 Al Hydroxide/Mg Hydroxide (Milk Of [place] Liq) 30 ml PO Q12H PRN PRN Reason: Mild Constipation Bisacodyl (Dulcolax Supp) 10 mg RECTAL DAILY PRN PRN Reason: SEVERE CONSITIPATION Clonidine HCl (Catapres) 0.1 mg PO UNSCH PRN PRN Reason: SEE LABEL COMMENTS Diphenhydramine HCl (Benadryl) 25 mg PO UNSCH PRN PRN Reason: SEE LABEL COMMENTS Epoetin [place] (Epogen Inj) 10,000 unit IV.PUSH UNSCH PRN PRN Reason: SEE LABEL COMMENTS Last Admin: 12/15/17 15:58 Dose: 10,000 unit Gelatin (Gelfoam 12 Mm/7 Mm Topical) 1 foam TOPICAL PRN PRN PRN Reason: help stop bleeding from site Gentamicin Sulfate (Gentamicin Inj) 20 mg OTHER WITH DIALYSIS PRN PRN Reason: Dwell Gentamycin Lock Last Admin: 12/15/17 15:57 Dose: 20 mg Heparin Sodium (Porcine) (Heparin Inj) 8,000 units OTHER WITH DIALYSIS PRN PRN Reason: for machine prime Heparin Sodium (Porcine) (Heparin Inj) 1,000 units OTHER WITH DIALYSIS PRN PRN Reason: Dwell Heparin to Fill Catheter Last Admin: 12/15/17 15:57 Dose: 1,000 units Sodium Chloride (Ns Inj) 250 mls @ 15 mls/hr IV.SIG ONCE CIARA Stop: 12/16/17 01:39 Last Admin: 12/15/17 11:32 Dose: 15 mls/hr Albumin Human (Flexbumin 25% Inj) 100 mls @ 60 mls/hr IV.SIG WITH DIALYSIS PRN PRN Reason: hypotension / volume replace Sodium Chloride (Ns Inj) 1,000 mls @ 0 mls/hr OTHER .Q0M PRN PRN Reason: for prime and rinse back Sodium Chloride (Ns Inj) 1,000 mls @ 200 mls/hr OTHER .Q5H PRN PRN Reason: for dialyzer flush PRN Sodium Chloride (Ns Inj) 1,000 mls @ 0 mls/hr IV.CONT .Q0M PRN PRN Reason: hypotension / volume replace Lactulose (Lactulose Liq) 30 ml PO DAILY PRN PRN Reason: SEVERE CONSITIPATION Mannitol (Mannitol Inj) 12.5 gm IV.PUSH UNSCH PRN PRN Reason: hypotension / volume replace Nitroglycerin (Nitrostat Sl) 0.4 mg SL Q5M PRN PRN Reason: CHEST PAIN Ondansetron HCl (Zofran Inj) 4 mg IV.PUSH UNSCH PRN PRN Reason: NAUSEA OR VOMITING Ondansetron HCl (Zofran Inj) 4 mg IV.PUSH Q6H PRN PRN Reason: NAUSEA OR VOMITING Senna/Docusate Sodium (Sylvie-Colace) 1 tab PO BID CIARA Sennosides (Senokot) 17.2 mg PO Q12H PRN PRN Reason: Moderate Constipation Sodium Chloride (Ns Flush) 5 ml IV.FLUSH PRN PRN PRN Reason: flush each lumen during HD <Stanley Azar E - Last Filed: 12/15/17 20:31> Allergies Allergy/AdvReac Type Severity Reaction Status Date / Time No Known Allergies Allergy Verified 12/15/17 06:51 Home Medications Medication Instructions Recorded Confirmed Type amiodarone 200 mg PO DAILY 10/22/17 12/15/17 History aspirin [Aspir-81] 81 mg PO DAILY 10/22/17 12/15/17 History atorvastatin 80 mg PO DAILY 10/22/17 12/15/17 History calcium acetate 667 mg PO BID 10/22/17 12/15/17 History cholecalciferol (vitamin D3) 400 unit PO DAILY 10/22/17 12/15/17 History [Vitamin D3] clopidogrel 75 mg PO DAILY 10/22/17 12/15/17 History furosemide 40 mg PO DAILY 10/22/17 12/15/17 History multivitamin 1 tab PO DAILY 10/22/17 12/15/17 History Exam Vital signs: Vital Signs 12/15/17 06:51 12/15/17 07:44 12/15/17 07:48 Temperature 98.6 F Pulse Rate 94 H 84 80 Respiratory Rate 19 18 Blood Pressure 140/60 135/58 L Pulse Oximetry 99 98 12/15/17 08:45 12/15/17 11:29 12/15/17 11:32 Temperature 98.3 F Pulse Rate 83 83 Respiratory Rate 18 18 Blood Pressure 134/63 134/63 Pulse Oximetry 98 100 100 Intake & Output 12/14/17 12/15/17 12/15/17 18:59 06:59 18:59 Intake Total 0 / 0 Balance 0 / 0 Weight 102.058 kg Intake: Intake (Blood Product) Amt 0 / 0 Rbc As-3 Leukoreduced Unit 0 / 0 [id number] - Constitutional no acute distress - Routine HEENT Exam Head: Present: normocephalic - Routine Neck Exam Present: supple - Routine Respiratory Exam Present: CTA bilaterally - Routine Cardiovascular Exam Present: RRR - Routine Abdominal Exam Present: soft, normoactive bowel sounds. Absent: tenderness, distended - Routine Skin Exam Present: intact, dry - Routine Neurological Exam Present: alert, oriented X3 <Tommie Camarena - Last Filed: 12/15/17 11:39> Vital signs: Vital Signs 12/15/17 06:51 12/15/17 07:44 12/15/17 07:48 Temperature 98.6 F Pulse Rate 94 H 84 80 Respiratory Rate 19 18 Blood Pressure 140/60 135/58 L Pulse Oximetry 99 98 12/15/17 08:45 12/15/17 11:29 12/15/17 11:32 Temperature 98.3 F Pulse Rate 83 83 Respiratory Rate 18 18 Blood Pressure 134/63 134/63 Pulse Oximetry 98 100 100 12/15/17 11:45 12/15/17 13:56 12/15/17 14:38 Temperature 98.1 F 97.5 F L 98.1 F Pulse Rate 78 74 77 Respiratory Rate 18 16 Blood Pressure 140/65 131/60 128/61 Pulse Oximetry 100 100 12/15/17 14:55 Temperature 97.9 F Pulse Rate 74 Respiratory Rate Blood Pressure 131/64 Pulse Oximetry Intake & Output 12/15/17 12/15/17 12/16/17 06:59 18:59 06:59 Intake Total 800 / 800 Output Total 2900 / 2900 Balance -2099 / -2099 Weight 102.058 kg Intake: Other 400 / 400 Rbc As-3 Leukoreduced Unit 400 / 400 [id number] Intake (Blood Product) Amt 400 / 400 Rbc As-3 Leukoreduced Unit 0 / 0 [id number] Rbc As-3 Leukoreduced Unit 400 / 400 [id number] Output: Urine 200 / 200 Hemodialysis Amount 2700 / 2700 Other: # Voids 1 <Stanley Azar E - Last Filed: 12/15/17 20:31> Results - Labs CBC & Chem 7: 12/15/17 07:45 12/15/17 07:45 Labs: Laboratory Results - last 24 hr 12/15/17 12/15/17 12/15/17 07:45 07:45 07:45 WBC 8.6 RBC 2.13 L Hgb 6.9 L* Hct 21.8 L MCV 102.6 H MCH 32.3 MCHC 31.5 L RDW 26.6 H Plt Count 302 MPV 8.4 Prelim Diff (Auto) Slide review pending Neut % (Auto) 82.0 H Lymph % (Auto) 7.4 L [place] % (Auto) 8.1 H Eos % (Auto) 1.7 Baso % (Auto) 0.8 Neut # (Auto) 7.0 Lymph # (Auto) 0.6 L [place] # (Auto) 0.7 Eos # (Auto) 0.1 Baso # (Auto) 0.1 WBC Differential Manual diff final Seg Neuts % (Manual) 72 H Band Neuts % (Manual) 5 Lymphocytes % (Manual) 14 Monocytes % (Manual) 8 Eosinophils % (Manual) 1 Abs Neuts (Manual) 6.6 Nucleated RBCs/100 WBC 1 H Differential Comment . Platelet Estimate Normal Platelet Morphology Normal Polychromasia 2.7 H Tear Drop Cells 1+ H Ovalocytes 1+ H PT INR APTT Sodium 141 Potassium 3.6 Chloride 101 Carbon Dioxide 25.7 Anion Gap 14 BUN 82 H Creatinine 6.38 H Estimated GFR 9 L Random Glucose 108 H Calcium 9.5 Phosphorus 8.0 H Magnesium 3.5 H Blood Type A Positive Antibody Screen Negative MTS Gel Crossmatch 12/15/17 12/15/17 07:45 08:17 WBC RBC Hgb Hct MCV MCH MCHC RDW Plt Count MPV Prelim Diff (Auto) Neut % (Auto) Lymph % (Auto) [place] % (Auto) Eos % (Auto) Baso % (Auto) Neut # (Auto) Lymph # (Auto) [place] # (Auto) Eos # (Auto) Baso # (Auto) WBC Differential Seg Neuts % (Manual) Band Neuts % (Manual) Lymphocytes % (Manual) Monocytes % (Manual) Eosinophils % (Manual) Abs Neuts (Manual) Nucleated RBCs/100 WBC Differential Comment Platelet Estimate Platelet Morphology Polychromasia Tear Drop Cells Ovalocytes PT 10.0 INR 1.0 APTT 21.6 L Sodium Potassium Chloride Carbon Dioxide Anion Gap BUN Creatinine Estimated GFR Random Glucose Calcium Phosphorus Magnesium Blood Type Antibody Screen MTS Gel Crossmatch See Detail - Imaging Impressions Chest X-Ray 12/15/17 07:36 CONCLUSION: Support equipment in good position. No acute abnormality identified. <Tommie Camarena - Last Filed: 12/15/17 11:39> - Labs CBC & Chem 7: 12/15/17 17:41 12/15/17 07:45 Labs: Laboratory Results - last 24 hr 12/15/17 12/15/17 12/15/17 07:45 07:45 07:45 WBC 8.6 RBC 2.13 L Hgb 6.9 L* Hct 21.8 L MCV 102.6 H MCH 32.3 MCHC 31.5 L RDW 26.6 H Plt Count 302 MPV 8.4 Prelim Diff (Auto) Slide review pending Neut % (Auto) 82.0 H Lymph % (Auto) 7.4 L [place] % (Auto) 8.1 H Eos % (Auto) 1.7 Baso % (Auto) 0.8 Neut # (Auto) 7.0 Lymph # (Auto) 0.6 L [place] # (Auto) 0.7 Eos # (Auto) 0.1 Baso # (Auto) 0.1 WBC Differential Manual diff final Seg Neuts % (Manual) 72 H Band Neuts % (Manual) 5 Lymphocytes % (Manual) 14 Monocytes % (Manual) 8 Eosinophils % (Manual) 1 Abs Neuts (Manual) 6.6 Nucleated RBCs/100 WBC 1 H Differential Comment . Platelet Estimate Normal Platelet Morphology Normal Polychromasia 2.7 H Tear Drop Cells 1+ H Ovalocytes 1+ H PT INR APTT Sodium 141 Potassium 3.6 Chloride 101 Carbon Dioxide 25.7 Anion Gap 14 BUN 82 H Creatinine 6.38 H Estimated GFR 9 L Random Glucose 108 H Calcium 9.5 Phosphorus 8.0 H Magnesium 3.5 H Iron TIBC % Saturation Ferritin Vitamin B12 Blood Type A Positive Antibody Screen Negative MTS Gel Crossmatch 12/15/17 12/15/17 12/15/17 07:45 08:17 16:00 WBC RBC Hgb Hct MCV MCH MCHC RDW Plt Count MPV Prelim Diff (Auto) Neut % (Auto) Lymph % (Auto) [place] % (Auto) Eos % (Auto) Baso % (Auto) Neut # (Auto) Lymph # (Auto) [place] # (Auto) Eos # (Auto) Baso # (Auto) WBC Differential Seg Neuts % (Manual) Band Neuts % (Manual) Lymphocytes % (Manual) Monocytes % (Manual) Eosinophils % (Manual) Abs Neuts (Manual) Nucleated RBCs/100 WBC Differential Comment Platelet Estimate Platelet Morphology Polychromasia Tear Drop Cells Ovalocytes PT 10.0 INR 1.0 APTT 21.6 L Sodium Potassium Chloride Carbon Dioxide Anion Gap BUN Creatinine Estimated GFR Random Glucose Calcium Phosphorus Magnesium Iron 90 TIBC 412 % Saturation 21.9 Ferritin 81 Vitamin B12 1296 H Blood Type Antibody Screen MTS Gel Crossmatch See Detail 12/15/17 17:41 WBC RBC Hgb 9.4 L D Hct 28.7 L MCV MCH MCHC RDW Plt Count MPV Prelim Diff (Auto) Neut % (Auto) Lymph % (Auto) [place] % (Auto) Eos % (Auto) Baso % (Auto) Neut # (Auto) Lymph # (Auto) [place] # (Auto) Eos # (Auto) Baso # (Auto) WBC Differential Seg Neuts % (Manual) Band Neuts % (Manual) Lymphocytes % (Manual) Monocytes % (Manual) Eosinophils % (Manual) Abs Neuts (Manual) Nucleated RBCs/100 WBC Differential Comment Platelet Estimate Platelet Morphology Polychromasia Tear Drop Cells Ovalocytes PT INR APTT Sodium Potassium Chloride Carbon Dioxide Anion Gap BUN Creatinine Estimated GFR Random Glucose Calcium Phosphorus Magnesium Iron TIBC % Saturation Ferritin Vitamin B12 Blood Type Antibody Screen MTS Gel Crossmatch - Imaging Impressions Chest X-Ray 12/15/17 07:36 CONCLUSION: Support equipment in good position. No acute abnormality identified. <Stanley Azar - Last Filed: 12/15/17 20:31> Assessment and Plan - Plan - Acute on chronic anemia hgb on arrival 6.9- likely multifactorial, anemia of chronic dz vs. Gi bleed Pt is known to our practice from previous encounters for same presentations. Pt is on Plavix and ASA. He endorses black tarry stools that he noticed recently, not able to further elaborate. He attributes to being on Iron and Epigean since August. Denies nausea, vomiting, hematemesis, abd pain or change in bowels, he has mild constipation for which he take laxatives at home with good results . Denies acid reflux, heartburn. Denies NSAIDs use. admits to drinking occasionally. EGD on 09/04/17 which revealed normal esophagus, gastritis in the gastric antrum, normal duodenal mucosa in the duodenal bulb, 2nd part of the duodenum, and 3rd part of the duodenum. Pathology (antrum) moderate chronic, focally active gastritis with intestinal metaplasia. colonoscopy --> Mild diverticulosis was noted in the sigmoid colon. A sessile polyp ranging between 3-5 mm in size was found in the sigmoid colon, polypectomy. Internal and external hemorrhoids. Bx revealed hyperplastic polyp. Patient is suppose to have CE and this is pending insurance approval. Receiving blood transfusion - ESRD- HD - PMH of CKD, COPD, hyperlipidemia, HTN, MADAN, chronic anemia, and spinal stenosis Plan: - Discussed doing EGD to r/o upper gi bleed, in view of black tarry stools but pt is declining, states he is going home and that he had too many tests done - Stools for occult - CE in processes - Monitor hh - Transfuse as needed - PPI - Supportive care - Pt seen and examined by dr. Azar and myself and this note is written on his behalf. <Tommie Camarena - Last Filed: 12/15/17 11:39> - Attending Attestation Patient seen and examined Agree with above Continue with current supportive care Monitor labs At this point I am inclined to say the patient is stable enough for discharge and should follow-up with GI on outpatient basis for capsule endoscopy Patient to report any change in symptoms promptly <Stanley Azar E - Last Filed: 12/15/17 20:31>
[2017-12-15 16:47] LABS: % Iron Saturation 21.9 % (20-50)
--- NOTE | 2017-12-15 17:57 | P.CONNP ---
History of Present Illness Service: Nephrology Consult date: 12/15/17 Primary Care Provider: UNKNOWN Family Provider: PROVIDER NON STAFF History of Present Illness: Patient is a 72-year-old male with history of recurrent anemia, ESRD, hypertension, TAVR, CAD Who has recurrent anemia of unknown etiology patient has been admitted as hemoglobin dropped 6.7 and repeat was 6.9, he was given 2 units of packed red blood cell Review of Systems Constitutional: Denies anorexia, Denies body ache(s), Denies chills, Denies daytime sleepiness, Denies excessive sweating, Denies fatigue, Denies fever(s), Denies headache(s), Denies increased appetite, Denies lack of energy, Denies malaise, Denies night sweats, Denies weakness, Denies weight gain, Denies weight loss, Denies other Eyes: Denies blind spots, Denies blurry vision, Denies bulging eyes, Denies change in vision, Denies double vision, Denies discharge, Denies dry eyes, Denies floaters, Denies irritation, Denies itchy eyes, Denies loss of vision, Denies pain, Denies requires corrective lenses, Denies sensitivity to light, Denies other Ears, Nose, Mouth, and Throat: Denies abnormal hearing, Denies bleeding gums, Denies bad breath, Denies change in voice, Denies dental pain, Denies difficulty swallowing, Denies dizziness, Denies dry mouth, Denies ear discharge , Denies ear pain, Denies facial pain, Denies headache(s), Denies hearing loss, Denies hoarseness, Denies lip swelling, Denies nosebleed, Denies mouth lesions, Denies mouth pain, Denies nasal congestion, Denies nasal discharge, Denies nasal obstruction, Denies nasal trauma, Denies neck lump, Denies neck pain, Denies nose pain, Denies pain with swallowing, Denies poor balance, Denies post nasal drip, Denies ringing in the ears, Denies sinus pain, Denies sinus pressure , Denies sore throat, Denies throat swelling, Denies tongue swelling, Denies other Cardiovascular: Reports other Respiratory: Reports shortness of breath Gastrointestinal: Reports abdominal pain Musculoskeletal: Reports joint pain Neurologic: Reports weakness Psychiatric: Denies abnormal sleep pattern, Denies anxiety, Denies behavioral changes, Denies change in appetite, Denies change in sex drive, Denies confusion , Denies depression, Denies difficulty concentrating, Denies hearing things others do not hear, Denies hopelessness, Denies irritability, Denies lack of enjoyment, Denies memory loss, Denies mood swings, Denies panic attacks, Denies paranoia, Denies seeing things others do not see, Denies sensing things others do not sense, Denies tactile hallucinations, Denies thoughts of hurting/killing others, Denies thoughts of hurting/killing yourself, Denies other Allergic/Immunologic: Denies GI upset with certain foods, Denies hives, Denies itchy eyes, Denies lip swelling, Denies seasonal runny nose, Denies throat swelling, Denies tongue swelling, Denies wheezing, Denies other PMFSH - History History Provided By: Patient - Medical History Medical History: Medical History (Last Reviewed 12/15/17 @ 07:49 by Bebeto Cabrera DO) HLD (hyperlipidemia) (Acute) Afib (Acute) CAD (coronary artery disease) (Acute) History of renal dialysis (Acute) COPD (chronic obstructive pulmonary disease) (Acute) High cholesterol (Acute) Aortic stenosis (Acute) Myocardial infarct (Acute) CKD (chronic kidney disease) (Acute) HTN (hypertension) (Acute) Renal failure (Acute) - Surgical History Surgical History: Surgical History (Last Reviewed 12/15/17 @ 07:49 by Bebeto Cabrera DO) Status post insertion of dialysis catheter (Acute) Hx of tonsillectomy (Acute) History of carpal tunnel release (Acute) History of appendectomy (Acute) H/O heart artery stent (Acute) - Family History Family History: Family History (Last Reviewed 12/15/17 @ 07:49 by Bebeto Cabrera DO) Other No significant family history Osteoarthritis - Tobacco History Second Hand Smoke Exposure: No Tobacco Use In Past 30 Days: No Smoking Status: Former smoker Tobacco Type: Cigarettes - Alcohol History How Often Do You Have a Drink Containing Alcohol: Never - Substance Use History Substance History: No History of Abuse - Travel History Recent Travel in the [place] Within the Last 8 Weeks: No Recent Travel Out of the Country Within the Last 8 Weeks: No - Immunization History Tetanus Immunization: >5 Years Hx Influenza Vaccine This Season: Yes Medications and Allergies Active Medications: Active Medications Acetaminophen (Tylenol) 650 mg PO UNSCH PRN PRN Reason: SEE LABEL COMMENTS Acetaminophen (Tylenol) 650 mg PO Q4H PRN PRN Reason: Temp > 100.4 Al Hydroxide/Mg Hydroxide (Milk Of [place] Liq) 30 ml PO Q12H PRN PRN Reason: Mild Constipation Bisacodyl (Dulcolax Supp) 10 mg RECTAL DAILY PRN PRN Reason: SEVERE CONSITIPATION Clonidine HCl (Catapres) 0.1 mg PO UNSCH PRN PRN Reason: SEE LABEL COMMENTS Diphenhydramine HCl (Benadryl) 25 mg PO UNSCH PRN PRN Reason: SEE LABEL COMMENTS Epoetin [place] (Epogen Inj) 10,000 unit IV.PUSH UNSCH PRN PRN Reason: SEE LABEL COMMENTS Last Admin: 12/15/17 15:58 Dose: 10,000 unit Gelatin (Gelfoam 12 Mm/7 Mm Topical) 1 foam TOPICAL PRN PRN PRN Reason: help stop bleeding from site Gentamicin Sulfate (Gentamicin Inj) 20 mg OTHER WITH DIALYSIS PRN PRN Reason: Dwell Gentamycin Lock Last Admin: 12/15/17 15:57 Dose: 20 mg Heparin Sodium (Porcine) (Heparin Inj) 8,000 units OTHER WITH DIALYSIS PRN PRN Reason: for machine prime Heparin Sodium (Porcine) (Heparin Inj) 1,000 units OTHER WITH DIALYSIS PRN PRN Reason: Dwell Heparin to Fill Catheter Last Admin: 12/15/17 15:57 Dose: 1,000 units Sodium Chloride (Ns Inj) 250 mls @ 15 mls/hr IV.SIG ONCE CIARA Stop: 12/16/17 01:39 Last Admin: 12/15/17 11:32 Dose: 15 mls/hr Albumin Human (Flexbumin 25% Inj) 100 mls @ 60 mls/hr IV.SIG WITH DIALYSIS PRN PRN Reason: hypotension / volume replace Sodium Chloride (Ns Inj) 1,000 mls @ 0 mls/hr OTHER .Q0M PRN PRN Reason: for prime and rinse back Sodium Chloride (Ns Inj) 1,000 mls @ 200 mls/hr OTHER .Q5H PRN PRN Reason: for dialyzer flush PRN Sodium Chloride (Ns Inj) 1,000 mls @ 0 mls/hr IV.CONT .Q0M PRN PRN Reason: hypotension / volume replace Lactulose (Lactulose Liq) 30 ml PO DAILY PRN PRN Reason: SEVERE CONSITIPATION Mannitol (Mannitol Inj) 12.5 gm IV.PUSH UNSCH PRN PRN Reason: hypotension / volume replace Nitroglycerin (Nitrostat Sl) 0.4 mg SL Q5M PRN PRN Reason: CHEST PAIN Ondansetron HCl (Zofran Inj) 4 mg IV.PUSH UNSCH PRN PRN Reason: NAUSEA OR VOMITING Ondansetron HCl (Zofran Inj) 4 mg IV.PUSH Q6H PRN PRN Reason: NAUSEA OR VOMITING Senna/Docusate Sodium (Sylvie-Colace) 1 tab PO BID CIARA Sennosides (Senokot) 17.2 mg PO Q12H PRN PRN Reason: Moderate Constipation Sodium Chloride (Ns Flush) 5 ml IV.FLUSH PRN PRN PRN Reason: flush each lumen during HD Allergies Allergy/AdvReac Type Severity Reaction Status Date / Time No Known Allergies Allergy Verified 12/15/17 06:51 Home Medications Medication Instructions Recorded Confirmed Type amiodarone 200 mg PO DAILY 10/22/17 12/15/17 History aspirin [Aspir-81] 81 mg PO DAILY 10/22/17 12/15/17 History atorvastatin 80 mg PO DAILY 10/22/17 12/15/17 History calcium acetate 667 mg PO BID 10/22/17 12/15/17 History cholecalciferol (vitamin D3) 400 unit PO DAILY 10/22/17 12/15/17 History [Vitamin D3] clopidogrel 75 mg PO DAILY 10/22/17 12/15/17 History furosemide 40 mg PO DAILY 10/22/17 12/15/17 History multivitamin 1 tab PO DAILY 10/22/17 12/15/17 History Exam Vital signs: Vital Signs 12/15/17 06:51 12/15/17 07:44 12/15/17 07:48 Temperature 98.6 F Pulse Rate 94 H 84 80 Respiratory Rate 19 18 Blood Pressure 140/60 135/58 L Pulse Oximetry 99 98 12/15/17 08:45 12/15/17 11:29 12/15/17 11:32 Temperature 98.3 F Pulse Rate 83 83 Respiratory Rate 18 18 Blood Pressure 134/63 134/63 Pulse Oximetry 98 100 100 12/15/17 11:45 12/15/17 13:56 12/15/17 14:38 Temperature 98.1 F 97.5 F L 98.1 F Pulse Rate 78 74 77 Respiratory Rate 18 16 Blood Pressure 140/65 131/60 128/61 Pulse Oximetry 100 100 12/15/17 14:55 Temperature 97.9 F Pulse Rate 74 Respiratory Rate Blood Pressure 131/64 Pulse Oximetry Intake & Output 12/14/17 12/15/17 12/15/17 18:59 06:59 18:59 Intake Total 800 / 800 Output Total 2900 / 2900 Balance -2099 / -2099 Weight 102.058 kg Intake: Other 400 / 400 Rbc As-3 Leukoreduced Unit 400 / 400 [id number] Intake (Blood Product) Amt 400 / 400 Rbc As-3 Leukoreduced Unit 0 / 0 [id number] Rbc As-3 Leukoreduced Unit 400 / 400 [id number] Output: Urine 200 / 200 Hemodialysis Amount 2700 / 2700 Other: # Voids 1 Narrative: GENERAL: Well-nourished, well-developed patient. SKIN: Warm and dry. HEAD: Normocephalic. EYES: No scleral icterus. No injection or drainage. NECK: Supple, trachea midline. No JVD or lymphadenopathy. CARDIOVASCULAR: Regular rate and rhythm without murmurs, gallops, or rubs. RESPIRATORY: Breath sounds equal bilaterally. No accessory muscle use. GASTROINTESTINAL: Abdomen soft, non-tender, nondistended. EXTREMITIES: No edema NEUROLOGICAL: Awake, alert, and oriented x 3. Non-focal. Results - Lab Results 12/15/17 07:45 12/15/17 07:45 Most recent lab results Calcium 9.5 mg/dL (8.5-10.1) 12/15/17 07:45 Phosphorus 8.0 mg/dL (2.5-4.9) H 12/15/17 07:45 Magnesium 3.5 mg/dL (1.5-2.5) H 12/15/17 07:45 Assessment and Plan - Assessment (1) Anemia Code(s): D64.9 - Anemia, unspecified Status: Acute (2) End stage renal disease on dialysis Code(s): N18.6 - End stage renal disease; Z99.2 - Dependence on renal dialysis Status: Acute (3) S/P TAVR (transcatheter aortic valve replacement) Code(s): Z95.2 - Presence of prosthetic heart valve Status: Acute - Plan Hemodialysis was done and he was given packed red blood cell, continue hemodialysis on Friday, Friday and Friday Anemia workup ordered Iron studies, RBC folate, B12 will be checked (1) Anemia Qualifiers: Anemia type: unspecified type Qualified Code(s): D64.9 - Anemia, unspecified
[2017-12-15 18:17] LABS: Hematocrit 28.7 % (39.0-51.0); Hemoglobin 9.4 gm/dL (13.0-17.0)
[2017-12-15] MEDS ORDERED: Senna/Docusate Sodium 8.6/50 MG Tablet PO SCH (21:00)
[2017-12-15 23:25] VITALS: RESP 18
[2017-12-16] MEDS ORDERED: Sodium Chloride 0.65% Nasal Drops/Spray 30 ML Bottle EACH NARE PRN (04:36)
[2017-12-16 07:09] LABS: Baso # (Auto) 0.1 th/mm3 (0.0-0.2); Baso % (Auto) 0.9 % (0.0-2.0); Eos # (Auto) 0.2 th/mm3 (0.0-0.4); Eos % (Auto) 2.2 % (0.0-4.0); Hematocrit 26.4 % (39.0-51.0); Mean Corpuscular Hemoglobin 31.8 pg (27.0-34.0); Mean Corpuscular Volume 93.4 fL (80.0-100.0); Mean Platelet Volume 8.3 fL (7.0-11.0); Mono # (Auto) 0.8 th/mm3 (0.0-0.9); Mono % (Auto) 9.4 % (0.0-8.0); Neut # (Auto) 6.2 th/mm3 (1.8-7.7); Neut % (Auto) 75.5 % (16.0-70.0); Platelet Count 265 th/mm3 (150-450); Red Blood Count 2.82 mil/mm3 (4.50-5.90); Red Cell Distribution Width 24.9 % (11.6-17.2); White Blood Count 8.2 th/mm3 (4.0-11.0)
[2017-12-16 07:30] LABS: Potassium 3.2 meq/L (3.5-5.1)
[2017-12-16 07:43] LABS: Calcium 8.2 mg/dL (8.5-10.1); Carbon Dioxide 27.7 meq/L (21.0-32.0)
[2017-12-16 07:54] VITALS: BP 138/65; TEMP 98.3; O2SAT 99
--- NOTE | 2017-12-16 08:47 | P.PN ---
Subjective Interval history: Follow-up for anemia. Patient reports feeling much better today and wants to go home. Denies any headache, lightheadedness, dizziness, chest pain, shortness of breath, or abdominal complaints. He denies any further dark stools. He states he would not agree to any endoscopy at this time if offered. He plans to follow-up with assistant professor of spanish Dr. Azar for outpatient capsule endoscopy as planned. He has no other medical complaints at this time. Physical Exam Vital signs: Vital Signs 12/15/17 11:29 12/15/17 11:32 12/15/17 11:45 Temperature 98.3 F 98.1 F Pulse Rate 83 83 78 Respiratory Rate 18 18 18 Blood Pressure 134/63 134/63 140/65 Pulse Oximetry 100 100 100 12/15/17 13:56 12/15/17 14:38 12/15/17 14:55 Temperature 97.5 F L 98.1 F 97.9 F Pulse Rate 74 77 74 Respiratory Rate 16 Blood Pressure 131/60 128/61 131/64 Pulse Oximetry 100 12/15/17 20:00 12/15/17 23:24 12/16/17 04:00 Temperature 98.0 F 98.2 F Pulse Rate 82 84 79 Respiratory Rate 18 18 Blood Pressure 120/59 L 131/62 Pulse Oximetry 98 100 12/16/17 07:24 12/16/17 07:51 Temperature 98.3 F Pulse Rate 78 Respiratory Rate 18 Blood Pressure 138/65 Pulse Oximetry 98 99 Intake & Output 12/15/17 12/16/17 12/16/17 18:59 06:59 18:59 Intake Total 800 / 800 250 / 250 Output Total 2900 / 2900 Balance -2100 / -2100 250 / 250 Intake: IV 250 / 250 NS Inj 250 ML @ 15 mls/hr IV. 250 / 250 SIG ONCE CIARA Rx#:[id number] Other 400 / 400 Rbc As-3 Leukoreduced Unit 400 / 400 [id number] Intake (Blood Product) Amt 400 / 400 Rbc As-3 Leukoreduced Unit 0 / 0 [id number] Rbc As-3 Leukoreduced Unit 400 / 400 [id number] Output: Urine 200 / 200 Hemodialysis Amount 2700 / 2700 Other: # Voids 1 4 Narrative: GENERAL: Well-nourished, well-developed elderly male patient in [facility]. SKIN: Warm and dry. No rash. HEENT: Normocephalic. Atraumatic. Pupils equal and round. Mucous membranes pink and moist. CARDIOVASCULAR: Regular rate and rhythm. No murmur appreciated. RESPIRATORY: No accessory muscle use. Clear to auscultation. Breath sounds equal bilaterally. GASTROINTESTINAL: Abdomen soft, non-tender, nondistended. Normoactive bowel sounds x4. MUSCULOSKELETAL: No obvious deformities. Extremities without clubbing, cyanosis , or edema. NEUROLOGICAL: Awake and alert. No obvious cranial nerve deficits. Motor grossly within normal limits. Moving all extremities spontaneously. Normal speech. PSYCHIATRIC: Appropriate mood and affect; insight and judgment normal. Results - Labs CBC & Chem 7: 12/16/17 06:10 12/16/17 06:10 Laboratory Results - last 24 hr 12/15/17 12/15/17 12/15/17 07:45 07:45 07:45 WBC RBC Hgb Hct MCV MCH MCHC RDW Plt Count MPV Neut % (Auto) Lymph % (Auto) [place] % (Auto) Eos % (Auto) Baso % (Auto) Neut # (Auto) Lymph # (Auto) [place] # (Auto) Eos # (Auto) Baso # (Auto) WBC Differential Manual diff final Seg Neuts % (Manual) 72 H Band Neuts % (Manual) 5 Lymphocytes % (Manual) 14 Monocytes % (Manual) 8 Eosinophils % (Manual) 1 Abs Neuts (Manual) 6.6 Nucleated RBCs/100 WBC 1 H Differential Comment Platelet Estimate Normal Platelet Morphology Normal Polychromasia 2.7 H Tear Drop Cells 1+ H Ovalocytes 1+ H PT 10.0 INR 1.0 APTT 21.6 L Sodium 141 Potassium 3.6 Chloride 101 Carbon Dioxide 25.7 Anion Gap 14 BUN 82 H Creatinine 6.38 H Estimated GFR 9 L Random Glucose 108 H Calcium 9.5 Phosphorus 8.0 H Magnesium 3.5 H Iron TIBC % Saturation Ferritin Vitamin B12 MTS Gel Crossmatch 12/15/17 12/15/17 12/15/17 08:17 16:00 17:41 WBC RBC Hgb 9.4 L D Hct 28.7 L MCV MCH MCHC RDW Plt Count MPV Neut % (Auto) Lymph % (Auto) [place] % (Auto) Eos % (Auto) Baso % (Auto) Neut # (Auto) Lymph # (Auto) [place] # (Auto) Eos # (Auto) Baso # (Auto) WBC Differential Seg Neuts % (Manual) Band Neuts % (Manual) Lymphocytes % (Manual) Monocytes % (Manual) Eosinophils % (Manual) Abs Neuts (Manual) Nucleated RBCs/100 WBC Differential Comment Platelet Estimate Platelet Morphology Polychromasia Tear Drop Cells Ovalocytes PT INR APTT Sodium Potassium Chloride Carbon Dioxide Anion Gap BUN Creatinine Estimated GFR Random Glucose Calcium Phosphorus Magnesium Iron 90 TIBC 412 % Saturation 21.9 Ferritin 81 Vitamin B12 1296 H MTS Gel Crossmatch See Detail 12/16/17 12/16/17 06:10 06:10 WBC 8.2 RBC 2.82 L Hgb 9.0 L Hct 26.4 L MCV 93.4 D MCH 31.8 MCHC 34.0 RDW 24.9 H Plt Count 265 MPV 8.3 Neut % (Auto) 75.5 H Lymph % (Auto) 12.0 [place] % (Auto) 9.4 H Eos % (Auto) 2.2 Baso % (Auto) 0.9 Neut # (Auto) 6.2 Lymph # (Auto) 1.0 [place] # (Auto) 0.8 Eos # (Auto) 0.2 Baso # (Auto) 0.1 WBC Differential . Seg Neuts % (Manual) Band Neuts % (Manual) Lymphocytes % (Manual) Monocytes % (Manual) Eosinophils % (Manual) Abs Neuts (Manual) Nucleated RBCs/100 WBC Differential Comment Auto diff final Platelet Estimate Platelet Morphology Polychromasia Tear Drop Cells Ovalocytes PT INR APTT Sodium 143 Potassium 3.2 L Chloride 104 Carbon Dioxide 27.7 Anion Gap 11 BUN 36 H Creatinine 4.00 H Estimated GFR 15 L Random Glucose 81 Calcium 8.2 L D Phosphorus Magnesium Iron TIBC % Saturation Ferritin Vitamin B12 MTS Gel Crossmatch - Imaging Impressions Chest X-Ray 12/15/17 07:36 CONCLUSION: Support equipment in good position. No acute abnormality identified. Assessment and Plan - Plan 72-year-old male with history of HTN, HLD, A. fib, CAD, ESRD on HD, AVR, pacer, COPD, presents with generalized fatigue and dark tarry stools, found to have a hemoglobin of 6.9 upon arrival. Acute macrocytic anemia: With reported black tarry stools, concern for GI bleed. Patient reports multiple endoscopies without clear source of bleed. Also has history of ESRD. -Stool Hemoccult ordered, pending -Iron studies, B12 within normal limits -S/p 2u pRBC transfusion, repeat hemoglobin 9.0 -GI consulted, patient with extensive prior workup for suspected chronic GI bleed, plans for outpatient capsule endoscopy -Cleared for discharge by GI with outpatient follow-up -Patient to have repeat CBC tomorrow with dialysis CAD/A. fib/HTN/HLD/AVR: Chronic, no complaints of chest pain -Continue home medications including aspirin, Plavix, statin, amiodarone, Lasix -Aspirin/Plavix continued despite concern for GI bleed as patient with recent stent placement -Monitor BP, adjust antihypertensives as needed ESRD on HD: Hemodialysis on MWF -Consult nephrology, continue patient's dialysis DVT prophylaxis: On aspirin/Plavix, no further anticoagulation with anemia/GI bleed Discharge Planning: Discharge patient to home Condition on discharge: Stable Cardiac/dialysis diet as tolerated Ad Macrina activity Rx written: No new meds Follow-up with primary care physician and gastroenterology
[2017-12-16] MEDS ORDERED: Calcium Acetate 667 MG Capsule PO SCH (09:00)
[2017-12-16] MEDS ORDERED: Amiodarone 200 MG Tablet PO SCH (09:00)
[2017-12-16] MEDS ORDERED: Furosemide 40 MG Tablet PO SCH (09:00)
[2017-12-16 09:29] VITALS: PULSE 73
--- NOTE | 2017-12-16 11:58 | P.PNGI ---
Subjective Interval history: Patient is sitting on side of the bed no nausea no vomiting no obvious bleeding and no abdominal pain Planning for discharge this a.m. <Zabrina Aceves - Last Filed: 12/16/17 11:55> Physical Exam Vital signs: Vital Signs 12/15/17 13:56 12/15/17 14:38 12/15/17 14:55 Temperature 97.5 F L 98.1 F 97.9 F Pulse Rate 74 77 74 Respiratory Rate 16 Blood Pressure 131/60 128/61 131/64 Pulse Oximetry 100 12/15/17 20:00 12/15/17 23:24 12/16/17 04:00 Temperature 98.0 F 98.2 F Pulse Rate 82 84 79 Respiratory Rate 18 18 Blood Pressure 120/59 L 131/62 Pulse Oximetry 98 100 12/16/17 07:24 12/16/17 07:51 12/16/17 09:28 Temperature 98.3 F Pulse Rate 78 73 Respiratory Rate 18 Blood Pressure 138/65 Pulse Oximetry 98 99 Intake & Output 12/15/17 12/16/17 12/16/17 18:59 06:59 18:59 Intake Total 800 / 800 250 / 250 Output Total 2900 / 2900 Balance -2100 / -2100 250 / 250 Intake: IV 250 / 250 NS Inj 250 ML @ 15 mls/hr IV. 250 / 250 SIG ONCE CIARA Rx#:[id number] Other 400 / 400 Rbc As-3 Leukoreduced Unit 400 / 400 [id number] Intake (Blood Product) Amt 400 / 400 Rbc As-3 Leukoreduced Unit 0 / 0 [id number] Rbc As-3 Leukoreduced Unit 400 / 400 [id number] Output: Urine 200 / 200 Hemodialysis Amount 2700 / 2700 Other: # Voids 1 4 - Constitutional obese - Routine HEENT Exam Head: Present: normocephalic ENT: Present: mucous membranes moist - Routine Respiratory Exam Present: accessory muscle use (Even, unlabored at rest) - Routine Abdominal Exam Present: soft (Round, obese, active bowel sounds denies any abdominal pain) <Zabrina Aceves - Last Filed: 12/16/17 11:55> Results - Labs CBC & Chem 7: 12/16/17 06:10 12/16/17 06:10 Laboratory Results - last 24 hr 12/15/17 12/15/17 12/15/17 08:17 16:00 17:41 WBC RBC Hgb 9.4 L D Hct 28.7 L MCV MCH MCHC RDW Plt Count MPV Neut % (Auto) Lymph % (Auto) [place] % (Auto) Eos % (Auto) Baso % (Auto) Neut # (Auto) Lymph # (Auto) [place] # (Auto) Eos # (Auto) Baso # (Auto) WBC Differential Differential Comment Sodium Potassium Chloride Carbon Dioxide Anion Gap BUN Creatinine Estimated GFR Random Glucose Calcium Iron 90 TIBC 412 % Saturation 21.9 Ferritin 81 Vitamin B12 1296 H MTS Gel Crossmatch See Detail 12/16/17 12/16/17 06:10 06:10 WBC 8.2 RBC 2.82 L Hgb 9.0 L Hct 26.4 L MCV 93.4 D MCH 31.8 MCHC 34.0 RDW 24.9 H Plt Count 265 MPV 8.3 Neut % (Auto) 75.5 H Lymph % (Auto) 12.0 [place] % (Auto) 9.4 H Eos % (Auto) 2.2 Baso % (Auto) 0.9 Neut # (Auto) 6.2 Lymph # (Auto) 1.0 [place] # (Auto) 0.8 Eos # (Auto) 0.2 Baso # (Auto) 0.1 WBC Differential . Differential Comment Auto diff final Sodium 143 Potassium 3.2 L Chloride 104 Carbon Dioxide 27.7 Anion Gap 11 BUN 36 H Creatinine 4.00 H Estimated GFR 15 L Random Glucose 81 Calcium 8.2 L D Iron TIBC % Saturation Ferritin Vitamin B12 MTS Gel Crossmatch <Zabrina Aceves - Last Filed: 12/16/17 11:55> - Labs CBC & Chem 7: 12/16/17 06:10 12/16/17 06:10 <Stanley Azar - Last Filed: 12/17/17 16:28> Assessment and Plan - Plan - Acute on chronic anemia hgb on arrival 6.9- likely multifactorial, anemia of chronic dz vs. Gi bleed Pt is known to our practice from previous encounters for same presentations. Pt is on Plavix and ASA. He endorses black tarry stools that he noticed recently, not able to further elaborate. He attributes to being on Iron and Epigean since August. Denies nausea, vomiting, hematemesis, abd pain or change in bowels, he has mild constipation for which he take laxatives at home with good results . Denies acid reflux, heartburn. Denies NSAIDs use. admits to drinking occasionally. EGD on 09/04/17 which revealed normal esophagus, gastritis in the gastric antrum, normal duodenal mucosa in the duodenal bulb, 2nd part of the duodenum, and 3rd part of the duodenum. Pathology (antrum) moderate chronic, focally active gastritis with intestinal metaplasia. colonoscopy --> Mild diverticulosis was noted in the sigmoid colon. A sessile polyp ranging between 3-5 mm in size was found in the sigmoid colon, polypectomy. Internal and external hemorrhoids. Bx revealed hyperplastic polyp. Patient is suppose to have CE and this is pending insurance approval. Receiving blood transfusion - ESRD- HD - PMH of CKD, COPD, hyperlipidemia, HTN, MADAN, chronic anemia, and spinal stenosis 12/16/2017 patient is sitting up in the bed, discharge planning discharge this a.m. patient denies any obvious symptoms of GI bleeding nausea vomiting or abdominal pain. States he has had multiple visits for his chronic anemia and possible GI bleeding as well as transfusions. Encourage patient to monitor any obvious bleeding, weakness, and follow-up in the GI office in 2-4 weeks. Current hemoglobin stable at 9 after receiving 2 units of packed RBCs. Patient is maintained on Plavix and aspirin and plans to consider outpatient capsule endoscopy. Patient was seen per myself and Dr. Azar, note was written on his behalf <Zabrina Aceves M - Last Filed: 12/16/17 11:55> - Plan Patient seen and examined Agree with above Continue with current supportive care Monitor labs <Stanley Azar - Last Filed: 12/17/17 16:28>
== END 2017-12-16 09:21 | disposition home or self-care (01) ==
LOC: NEPC 06:44 → INTOOBSV 09:45 → NEDA 09:45 → NEPFCDU 12:25
PROVIDERS: ADMIT Hospitalist; ATTEND Hospitalist

== ENCOUNTER 2018-01-02 06:53 | Observation (INO) ==
[2018-01-02 07:03] VITALS: O2SAT 99
--- NOTE | 2018-01-02 07:20 | ED ---
HPI General Chief complaint: Recheck/Abnormal Lab/Rx Stated complaint: Medical Time Seen by Provider: 01/02/18 07:10 Source: patient and old records reviewed Mode of arrival: ambulatory Limitations: no limitations History of Present Illness HPI narrative: The patient is a 72-year-old male on hemodialysis with history of coronary artery disease status post ID this past August that has been seen here several times for blood transfusion. The patient has been having a chronic GI bleed with dark tarry stools and multiple endoscopies without any clear source of bleeding. He was on Plavix and aspirin for his heart disease and he was stopped today. Patient dialyzes on Friday and Friday and he went to dialysis on Friday was advised to come to the hospital for blood transfusion but he waited until today. In addition to that the patient was informed that on Friday 5 days ago his hemoglobin was 6.8. He reports being winded lightheaded when stands and fatigued. No bright red blood per rectum no other complaints. 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 Associated symptoms: Reports denies other symptoms Treatments prior to arrival: Reports none Related Data Home Medications Medication Instructions Recorded Confirmed aspirin [Aspir-81] 81 mg PO DAILY 10/22/17 01/02/18 cholecalciferol (vitamin D3) 400 unit PO DAILY 10/22/17 01/02/18 [Vitamin D3] clopidogrel 75 mg PO DAILY 10/22/17 01/02/18 furosemide 40 mg PO DAILY 10/22/17 01/02/18 B complex-vitamin C-folic acid 1 tab PO DAILY 01/02/18 01/02/18 [Marni-Simone] sevelamer carbonate [Renvela] 800 mg PO TID 01/02/18 01/02/18 Allergies Allergy/AdvReac Type Severity Reaction Status Date / Time No Known Allergies Allergy Verified 01/02/18 07:15 Review of Systems ROS: all other systems reviewed are negative Constitutional Reports fatigue Respiratory Reports dyspnea on exertion PMFSH History History Provided By: Patient and Medical Record Medical History Medical History HLD (hyperlipidemia) (Acute) Afib (Acute) CAD (coronary artery disease) (Acute) History of renal dialysis (Acute) COPD (chronic obstructive pulmonary disease) (Acute) High cholesterol (Acute) Aortic stenosis (Acute) Myocardial infarct (Acute) CKD (chronic kidney disease) (Acute) HTN (hypertension) (Acute) Renal failure (Acute) Surgical History Surgical History Status post insertion of dialysis catheter (Acute) Hx of tonsillectomy (Acute) History of carpal tunnel release (Acute) History of appendectomy (Acute) H/O heart artery stent (Acute) Social History Social History Substance History: No History of Abuse Second Hand Smoke Exposure: Yes Smoking Status: Current some day smoker Tobacco Type: Cigarettes How Often Do You Have a Drink Containing Alcohol: Monthly or less Recent Travel in [facility] within the Last 8 Weeks: No Recent Out of Country Travel within the Last 8 Weeks: No Exam Narrative Exam Narrative: GENERAL: In no distress. Alert and oriented SKIN: Focused skin assessment warm/dry. Multiple bruises at various healing stages on upper and lower extremities peer HEAD: Atraumatic. Normocephalic. EYES: Pupils equal and round. No scleral icterus pale conjunctiva. No injection or drainage. ENT: No nasal bleeding or discharge. Mucous membranes pink and moist. NECK: Trachea midline. No JVD. CARDIOVASCULAR: Regular rate and rhythm. No murmur appreciated. RESPIRATORY: No accessory muscle use. Clear to auscultation. Breath sounds equal bilaterally. GASTROINTESTINAL: Abdomen soft, non-tender, nondistended. Hepatic and splenic margins not palpable. MUSCULOSKELETAL: No obvious deformities. No clubbing. No cyanosis. No edema. NEUROLOGICAL: Awake and alert. No obvious cranial nerve deficits. Motor grossly within normal limits. Normal speech. PSYCHIATRIC: Appropriate mood and affect; insight and judgment normal. Course Hospital Course: Patient admitted for dialysis and blood transfusion. Hemodynamically stable. Reevaluation(s) Reevaluation #1: Resting comfortably no distress hemodynamically stable. Time: 08:19 Initial Documented Vital Signs Temperature 97.7 F 01/02/18 07:02 Pulse Rate 96 H 01/02/18 07:02 Respiratory Rate 14 01/02/18 07:02 Blood Pressure 140/65 01/02/18 07:02 Pulse Oximetry 99 01/02/18 07:02 Last Documented Vital Signs Temperature 97.7 F 01/02/18 07:02 Pulse Rate 96 H 01/02/18 07:02 Respiratory Rate 14 01/02/18 07:02 Blood Pressure 140/65 01/02/18 07:02 Pulse Oximetry 99 01/02/18 07:02 Medical Decision Making [facility] Narrative Medical Screen Exam Complete: Yes Emergency Medical Condition: Yes Lab Data Result diagrams: 01/02/18 07:20 01/02/18 07:20 Lab Results 01/02/18 01/02/18 01/02/18 Range/Units 07:20 07:20 07:20 WBC 9.0 (4.0-11.0) th/mm3 RBC 2.17 L (4.50-5.90) mil/mm3 Hgb 6.7 L* (13.0-17.0) gm/dL Hct 21.2 L (39.0-51.0) % MCV 97.9 (80.0-100.0) fL MCH 30.9 (27.0-34.0) pg MCHC 31.5 L (32.0-36.0) % RDW 21.1 H (11.6-17.2) % Plt Count 302 (150-450) th/mm3 MPV 8.3 (7.0-11.0) fL Neut % (Auto) 78.1 H (16.0-70.0) % Lymph % (Auto) 11.3 (9.0-44.0) % [place] % (Auto) 8.4 H (0.0-8.0) % Eos % (Auto) 1.6 (0.0-4.0) % Baso % (Auto) 0.6 (0.0-2.0) % Neut # (Auto) 7.0 (1.8-7.7) th/mm3 Lymph # (Auto) 1.0 (1.0-4.8) th/mm3 [place] # (Auto) 0.8 (0.0-0.9) th/mm3 Eos # (Auto) 0.1 (0.0-0.4) th/mm3 Baso # (Auto) 0.1 (0.0-0.2) th/mm3 WBC Differential . Differential Comment Auto diff final Sodium 139 (136-145) meq/L Potassium 3.8 (3.5-5.1) meq/L Chloride 102 (98-107) meq/L Carbon Dioxide 25.1 (21.0-32.0) meq/L Anion Gap 12 (5-15) meq/L BUN 59 H (7-18) mg/dL Creatinine 5.74 H (0.60-1.30) mg/dL Estimated GFR 10 L (>89) mL/min Random Glucose 135 H (74-106) mg/dL Calcium 9.3 (8.5-10.1) mg/dL Phosphorus 5.9 H (2.5-4.9) mg/dL Magnesium 3.3 H (1.5-2.5) mg/dL Blood Type A Positive Antibody Screen Negative Discharge Plan Discharge Disposition Patient Disposition: 30 Still Patient Discharge Condition Condition: Stable Discharge Details Diagnosis: Renal failure, Anemia Physicians Team ED Provider: Bebeto Cabrera Primary Care Provider: UNKNOWN, Attending Provider: Hellen lOivo Status ED Status: Admitted Observation Patient
[2018-01-02 07:41] LABS: Baso # (Auto) 0.1 th/mm3 (0.0-0.2); Baso % (Auto) 0.6 % (0.0-2.0); Eos # (Auto) 0.1 th/mm3 (0.0-0.4); Eos % (Auto) 1.6 % (0.0-4.0); Lymph % (Auto) 11.3 % (9.0-44.0); Mean Corpuscular HGB Conc 31.5 % (32.0-36.0); Mean Corpuscular Hemoglobin 30.9 pg (27.0-34.0); Mean Corpuscular Volume 97.9 fL (80.0-100.0); Mean Platelet Volume 8.3 fL (7.0-11.0); Mono # (Auto) 0.8 th/mm3 (0.0-0.9); Mono % (Auto) 8.4 % (0.0-8.0); Neut % (Auto) 78.1 % (16.0-70.0); Platelet Count 302 th/mm3 (150-450); Red Blood Count 2.17 mil/mm3 (4.50-5.90); Red Cell Distribution Width 21.1 % (11.6-17.2)
[2018-01-02 07:54] LABS: Hematocrit 21.2 % (39.0-51.0); Hemoglobin 6.7 gm/dL (13.0-17.0)
[2018-01-02 08:03] LABS: Calcium 9.3 mg/dL (8.5-10.1); Carbon Dioxide 25.1 meq/L (21.0-32.0); Magnesium 3.3 mg/dL (1.5-2.5); Phosphorus 5.9 mg/dL (2.5-4.9); Potassium 3.8 meq/L (3.5-5.1)
[2018-01-02] MEDS ORDERED: Albumin Human 25% Inj 100 ML IV.SIG PRN (09:31)
[2018-01-02] MEDS ORDERED: Sod Chloride 0.9% Inj 1,000 ML IV.CONT PRN (09:31)
[2018-01-02] MEDS ORDERED: Gelatin 12 MM/7 MM Topical Foam TOPICAL PRN (09:31)
[2018-01-02] MEDS ORDERED: Sod Chloride 0.9% Inj 1,000 ML OTHER PRN ×2 (09:31)
[2018-01-02] MEDS ORDERED: Heparin 10,000 UNITS/10 ML Vial (for IV use) OTHER PRN ×2 (09:31)
[2018-01-02] MEDS ORDERED: Acetaminophen 325 MG Tablet PO PRN ×2 (09:31→09:45)
[2018-01-02] MEDS ORDERED: Bisacodyl 10 MG Supp RECTAL PRN (09:45)
[2018-01-02 10:55] VITALS: BP 127/61; PULSE 80; RESP 20; TEMP 98.4
[2018-01-02 13:36] LABS: Hematocrit 27.5 % (39.0-51.0); Hemoglobin 9.2 gm/dL (13.0-17.0)
--- NOTE | 2018-01-02 14:02 | P.HP ---
History of Present Illness Primary Care Physician: UNKNOWN Chief Complaint: dyspnea, fatigue History of Present Illness: 72-year-old male with history of ESRD on HD MWF, CAD s/p RI on aspirin/Plavix, A. fib, COPD, HTN, HLD, aortic stenosis s/p TAVR, chronic anemia, presents with complaints of dyspnea and fatigue consistent with his previous episodes of anemia. Patient reports he has a long history of anemia, status post multiple endoscopies and hematological workup without any identified obvious source of bleed. Reports he went for dialysis 5 days ago on Friday and his hemoglobin was 6.8. He was instructed to go to the ER at that time for transfusion, however the patient states he did not feel that bad at the time. Over the past few days he started to become more winded/dyspneic, worse on exertion, and more fatigued. He states this is consistent with his previous episodes of anemia. He denies any lightheadedness or dizziness. Denies any chest pain or palpitations. Patient was admitted to observation, received dialysis with 2 units of PRBCs today. The patient was seen status post dialysis and transfusion , repeat Hgb 9.2, he reports feeling much better, denies any more dyspnea, and is requesting discharge. He declines any further workup since he has had extensive workup in the past and follows with outpatient physicians. He states his aspirin/Plavix was also stopped by his physician today. He denies noticing any recent melena/hematochezia. He has no other medical complaints to report at this time. Review of Systems All other systems reviewed negative except as stated in HPI PMFSH - History History Provided By: Patient, Medical Record - Medical History Medical History: Medical History (Last Reviewed 01/02/18 @ 13:51 by Lisa Renee) HLD (hyperlipidemia) (Acute) Afib (Acute) CAD (coronary artery disease) (Acute) History of renal dialysis (Acute) COPD (chronic obstructive pulmonary disease) (Acute) High cholesterol (Acute) Aortic stenosis (Acute) Myocardial infarct (Acute) CKD (chronic kidney disease) (Acute) HTN (hypertension) (Acute) Renal failure (Acute) - Surgical History Surgical History: Surgical History (Last Reviewed 01/02/18 @ 13:51 by Lisa Renee) Status post insertion of dialysis catheter (Acute) Hx of tonsillectomy (Acute) History of carpal tunnel release (Acute) History of appendectomy (Acute) H/O heart artery stent (Acute) - Family History Family History: Family History (Last Reviewed 01/02/18 @ 13:52 by Lisa Renee) Other No significant family history Osteoarthritis - Social History I have reviewed the patient's Social History: Yes - Tobacco History Second Hand Smoke Exposure: Yes Tobacco Use In Past 30 Days: No Smoking Status: Former smoker Tobacco Type: Cigarettes - Alcohol History How Often Do You Have a Drink Containing Alcohol: Monthly or less - Substance Use History Substance History: No History of Abuse - Travel History Recent Travel in the [place] Within the Last 8 Weeks: No Recent Travel Out of the Country Within the Last 8 Weeks: No - Immunization History Tetanus Immunization: >5 Years Hx Influenza Vaccine This Season: Yes Medications and Allergies Active Medications: Active Medications Acetaminophen (Tylenol) 650 mg PO UNSCH PRN PRN Reason: SEE LABEL COMMENTS Acetaminophen (Tylenol) 650 mg PO Q6H PRN PRN Reason: headache/fever/pain1-4 Al Hydroxide/Mg Hydroxide (Milk Of [place] Liq) 30 ml PO Q12H PRN PRN Reason: Mild Constipation Bisacodyl (Dulcolax Supp) 10 mg RECTAL DAILY PRN PRN Reason: SEVERE CONSITIPATION Clonidine HCl (Catapres) 0.1 mg PO UNSCH PRN PRN Reason: SEE LABEL COMMENTS Diphenhydramine HCl (Benadryl) 25 mg PO UNSCH PRN PRN Reason: SEE LABEL COMMENTS Epoetin [place] (Epogen Inj) 10,000 unit IV.PUSH UNSCH PRN PRN Reason: SEE LABEL COMMENTS Last Admin: 01/02/18 12:16 Dose: 10,000 unit Gelatin (Gelfoam 12 Mm/7 Mm Topical) 1 foam TOPICAL PRN PRN PRN Reason: help stop bleeding from site Gentamicin Sulfate (Gentamicin Inj) 20 mg OTHER WITH DIALYSIS PRN PRN Reason: Dwell Gentamycin Lock Last Admin: 01/02/18 12:16 Dose: 20 mg Heparin Sodium (Porcine) (Heparin Inj) 8,000 units OTHER WITH DIALYSIS PRN PRN Reason: for machine prime Heparin Sodium (Porcine) (Heparin Inj) 1,000 units OTHER WITH DIALYSIS PRN PRN Reason: Dwell Heparin to Fill Catheter Last Admin: 01/02/18 12:16 Dose: 1,000 units Albumin Human (Flexbumin 25% Inj) 100 mls @ 60 mls/hr IV.SIG WITH DIALYSIS PRN PRN Reason: hypotension / volume replace Sodium Chloride (Ns Inj) 1,000 mls @ 0 mls/hr OTHER .Q0M PRN PRN Reason: for prime and rinse back Sodium Chloride (Ns Inj) 1,000 mls @ 200 mls/hr OTHER .Q5H PRN PRN Reason: for dialyzer flush PRN Sodium Chloride (Ns Inj) 1,000 mls @ 0 mls/hr IV.CONT .Q0M PRN PRN Reason: hypotension / volume replace Mannitol (Mannitol Inj) 12.5 gm IV.PUSH UNSCH PRN PRN Reason: hypotension / volume replace Nitroglycerin (Nitrostat Sl) 0.4 mg SL Q5M PRN PRN Reason: CHEST PAIN Ondansetron HCl (Zofran Inj) 4 mg IV.PUSH UNSCH PRN PRN Reason: NAUSEA OR VOMITING Senna/Docusate Sodium (Sylvie-Colace) 1 tab PO BID CIARA Sennosides (Senokot) 17.2 mg PO Q12H PRN PRN Reason: Moderate Constipation Sodium Chloride (Ns Flush) 5 ml IV.FLUSH PRN PRN PRN Reason: flush each lumen during HD Allergies Allergy/AdvReac Type Severity Reaction Status Date / Time No Known Allergies Allergy Verified 01/02/18 07:15 Home Medications Medication Instructions Recorded Confirmed Type aspirin [Aspir-81] 81 mg PO DAILY 10/22/17 01/02/18 History cholecalciferol (vitamin D3) 400 unit PO DAILY 10/22/17 01/02/18 History [Vitamin D3] clopidogrel 75 mg PO DAILY 10/22/17 01/02/18 History furosemide 40 mg PO DAILY 10/22/17 01/02/18 History B complex-vitamin C-folic acid 1 tab PO DAILY 01/02/18 01/02/18 History [Marni-Simone] sevelamer carbonate [Renvela] 800 mg PO TID 01/02/18 01/02/18 History Exam Vital signs: Vital Signs 01/02/18 07:02 01/02/18 10:18 01/02/18 10:35 Temperature 97.7 F 98.6 F 98.5 F Pulse Rate 96 H 92 H 86 Respiratory Rate 14 18 18 Blood Pressure 140/65 118/59 L 109/55 L Pulse Oximetry 99 01/02/18 10:37 01/02/18 10:54 Temperature 98.5 F 98.4 F Pulse Rate 93 H 80 Respiratory Rate 18 20 Blood Pressure 99/56 L 127/61 Pulse Oximetry Intake & Output 01/01/18 01/02/18 01/02/18 18:59 06:59 18:59 Intake Total 800 / 800 Output Total 2500 / 2500 Balance -1700 / -1700 Weight 99.79 kg Intake: Intake (Blood Product) Amt 800 / 800 Rbc As-3 Leukoreduced Unit 400 / 400 [id number] Rbc As-3 Leukoreduced Unit 400 / 400 [id number] Output: Hemodialysis Amount 2500 / 2500 Other: Weight On Admission 99.79 kg Narrative: GENERAL: Well-nourished, well-developed pleasant elderly male patient in [facility]. Dressed in personal clothes, sitting in bedside chair. SKIN: Warm and dry. No rash. HEENT: Normocephalic. Atraumatic. Pupils equal and round. Mucous membranes pink and moist. CARDIOVASCULAR: Regular rate and rhythm. No murmur appreciated. RESPIRATORY: No accessory muscle use. Clear to auscultation. Breath sounds equal bilaterally. GASTROINTESTINAL: Abdomen soft, non-tender, nondistended. Normoactive bowel sounds x4. MUSCULOSKELETAL: No obvious deformities. Extremities without clubbing, cyanosis , or edema. NEUROLOGICAL: Awake and alert. No obvious cranial nerve deficits. Motor grossly within normal limits. Moving all extremities spontaneously. Normal speech. PSYCHIATRIC: Appropriate mood and affect; insight and judgment normal. Results - Labs CBC & Chem 7: 01/02/18 13:20 01/02/18 07:20 Labs: Laboratory Results - last 24 hr 01/02/18 01/02/18 01/02/18 07:20 07:20 07:20 WBC 9.0 RBC 2.17 L Hgb 6.7 L* Hct 21.2 L MCV 97.9 MCH 30.9 MCHC 31.5 L RDW 21.1 H Plt Count 302 MPV 8.3 Neut % (Auto) 78.1 H Lymph % (Auto) 11.3 [place] % (Auto) 8.4 H Eos % (Auto) 1.6 Baso % (Auto) 0.6 Neut # (Auto) 7.0 Lymph # (Auto) 1.0 [place] # (Auto) 0.8 Eos # (Auto) 0.1 Baso # (Auto) 0.1 WBC Differential . Differential Comment Auto diff final Sodium 139 Potassium 3.8 Chloride 102 Carbon Dioxide 25.1 Anion Gap 12 BUN 59 H Creatinine 5.74 H Estimated GFR 10 L Random Glucose 135 H Calcium 9.3 Phosphorus 5.9 H Magnesium 3.3 H Blood Type A Positive Antibody Screen Negative MTS Gel Crossmatch Bld Prod Order Comment 01/02/18 01/02/18 09:34 13:20 WBC RBC Hgb 9.2 L D Hct 27.5 L MCV MCH MCHC RDW Plt Count MPV Neut % (Auto) Lymph % (Auto) [place] % (Auto) Eos % (Auto) Baso % (Auto) Neut # (Auto) Lymph # (Auto) [place] # (Auto) Eos # (Auto) Baso # (Auto) WBC Differential Differential Comment Sodium Potassium Chloride Carbon Dioxide Anion Gap BUN Creatinine Estimated GFR Random Glucose Calcium Phosphorus Magnesium Blood Type Antibody Screen MTS Gel Crossmatch See Detail Bld Prod Order Comment Caprini VTE Risk Assessment Caprini VTE Risk Assessment: Moderate/High Risk (score >= 2) Caprini Risk Assessment Model: Point Value = 1 Point Value = 2 Point Value = 3 Point Value = 5 Age 41-60 Minor surgery BMI > 25 kg/m2 Swollen legs Varicose veins or History of unexplained or recurrent spontaneous Oral contraceptives or hormone replacement Sepsis (< 1 month) Serious lung disease, including pneumonia (< 1 month) Abnormal pulmonary function Acute myocardial infarction Congestive heart failure (< 1 month) History of inflammatory bowel disease Medical patient at bed rest Age 61-74 Arthroscopic surgery Major open surgery (> 45 min) Laparoscopic surgery (> 45 min) Malignancy Confined to bed (> 72 hours) Immobilizing plaster cast Central venous access Age >= 75 History of VTE Family history of VTE Factor V Leiden Prothrombin [id number] Lupus anticoagulant Anticardiolipin antibodies Elevated serum homocysteine Heparin-induced thrombocytopenia Other congenital or acquired thrombophilia Stroke (< 1 month) Elective arthroplasty Hip, pelvis, or leg fracture Acute spinal cord injury (< 1 month) Prophylaxis Regimen: Total Risk Factor Score Risk Level Prophylaxis Regimen 0-1 Low Early ambulation 2 Moderate Order ONE of the following: *Sequential Compression Device (SCD) *Heparin 5000 units SQ BID 3-4 Higher Order ONE of the following medications: *Heparin 5000 units SQ TID *Enoxaparin/Lovenox 40 mg SQ daily (WT < 150 kg, CrCl > 30 mL/min) *Enoxaparin/Lovenox 30 mg SQ daily (WT < 150 kg, CrCl > 10-29 mL/min) *Enoxaparin/Lovenox 30 mg SQ BID (WT < 150 kg, CrCl > 30 mL/min) AND/OR *Sequential Compression Device (SCD) 5 or more Highest Order ONE of the following medications: *Heparin 5000 units SQ TID (Preferred with Epidurals) *Enoxaparin/Lovenox 40 mg SQ daily (WT < 150 kg, CrCl > 30 mL/min) *Enoxaparin/Lovenox 30 mg SQ daily (WT < 150 kg, CrCl > 10-29 mL/min) *Enoxaparin/Lovenox 30 mg SQ BID (WT < 150 kg, CrCl > 30 mL/min) AND *Sequential Compression Device (SCD) Assessment and Plan - Plan 72-year-old male with history of ESRD on HD MWF, CAD s/p RI on aspirin/Plavix, A. fib, COPD, HTN, HLD, aortic stenosis s/p TAVR, chronic anemia, presents with complaints of dyspnea and fatigue consistent with his previous episodes of anemia. Acute on chronic anemia: Patient reports he has a long history of anemia, status post multiple endoscopies and hematological workup without any identified obvious source of bleed. -Hemoglobin 6.7 upon arrival -Received 2 units PRBCs with dialysis today -Repeat hemoglobin 9.2 -Patient declining any further workup for anemia as he has had an extensive workup in the past -Outpatient follow-up, stable for discharge ESRD on HD: Chronic. Development Analyst is Dr. Shah. Receives dialysis MWF. -Status post dialysis today -Continued home medications -Outpatient follow-up with Dr. Shah All other chronic medical conditions listed above stable, continue home medications as appropriate. DVT prophylaxis: patient is ambulatory and being discharged; avoiding chemical prophylaxis with severe anemia Discharge Planning: Discharge patient to home Condition on discharge: Stable ESRD/Dialysis Diet as tolerated Ad Macrina activity Rx written: no new meds Follow-up with primary care physician and material spreader
[2018-01-02] MEDS ORDERED: Senna/Docusate Sodium 8.6/50 MG Tablet PO SCH (21:00)
== END 2018-01-02 14:24 | disposition home or self-care (01) ==
LOC: NEDA 06:53 → NEPC 06:53 → NEPHCDU 11:23
PROVIDERS: ADMIT Internal Medicine; ATTEND Internal Medicine